=== PATIENT | female | born 1980 | race Caucasian/White ===

== ENCOUNTER 2018-02-11 22:20 | Emergency (ER) | payer MEDICAID, SELFPAY ==
[2018-02-11 22:21] VITALS: BP 136/96; PULSE 86; RESP 16; TEMP 36.2; O2SAT 99; BMI 54.6
--- NOTE | 2018-02-11 22:40 | ED.VISSUMM ---
- ER Visit Summary Date of Service: 02/11/18 Chief Complaint: [] Abdominal pain History of Present Illness: The patient is a 37 F with abdominal pain since 1 AM today. She woke up and felt some diffuse abdominal cramping after eating [employer]. She had 2 episodes of emesis almost 24 hours ago back to back the second having some blood streaks. It has not reoccurred. She had 2 episodes of loose diarrhea. She has never had a formal gastric ulcer or any previous GI problems. She uses Aleve and Pepto-Bismol with moderate relief and came in for further evaluation. Physical Examination: Vital signs reviewed General: Well-nourished well-developed Head: Normocephalic atraumatic Eyes: Pupils equal round and reactive to light extraocular movements intact ENT: TMs clear no hemotympanum no trauma Neck: Nontender full range of motion Cardiovascular: Regular rate rhythm no murmurs normal S1-S2 Respiratory: No distress clear to auscultation bilaterally chest nontender Abdomen: Soft nontender nondistended normal bowel sounds no masses Back: Nontender no CVA tenderness Extremities: Nontender active range of motion ?4 extremities no trauma Skin: Normal color no trauma Neuro alert oriented cranial nerves II through XII intact normal strength sensation reflexes Test Results: [] Emergency Department Course and Treatment: The patient likely has a viral illness versus poisoning. She is nontoxic resting comfortably. She may have had a slight Angela-Pierce tear from a forceful vomiting episode last night that has not recurred. Do not feel she needs lab work or imaging. Given a dose of Bentyl and Zofran. She will follow-up with her doctor and eat a bland diet. Treatment Plan: [] Disposition: [] Impression: [] Vomiting Diarrhea Abdominal cramping This note was generated with [employer] dictation software. It may contain incorrect words, spelling, and punctuation that were not noted in review of the chart prior to signing ED Disposition - Plan for ED Patient: Chief Complaint: Abd Pain Referrals: Ko Holt MD [Primary Care Provider] -
--- NOTE | 2018-02-11 22:41 | ED.DEP ---
ED Disposition - Plan for ED Patient: Disposition: Home or Assisted Living Chief Complaint: Abd Pain Instructions: ED Food Poison Or Gastroenteritis Prescriptions: Ondansetron [Zofran Odt] 4 mg PO Q8H PRN PRN #10 tab PRN Reason: Nausea Dicyclomine HCl [Bentyl] 20 mg PO TIDAC #20 cap Referrals: Ko Holt MD [Primary Care Provider] -
[2018-02-11] MEDS: Dicyclomine 10 MG Capsule 20 MG PO (22:55)
[2018-02-11] MEDS: Ondansetron ODT 4 MG Tablet PO (22:55)
== END 2018-02-11 22:57 | disposition home or self-care (01) ==
PROVIDERS: Emergency Provider Emergency Medicine; Family Provider Family Medicine; PCP Family Medicine
DX: R10.84 Generalized abdominal pain (principal); R19.7 Diarrhea, unspecified; R11.2 Nausea with vomiting, unspecified
CPT/HCPCS: 99283

== ENCOUNTER 2018-04-12 01:48 | Emergency (ER) | payer MEDICAID, SELFPAY ==
[2018-04-12 01:48] VITALS: BP 117/84; PULSE 87; RESP 20; TEMP 36.7; O2SAT 99; BMI 55.1
--- NOTE | 2018-04-12 02:06 | RAD_ITS ---
STUDY: X-RAY CHEST REASON FOR EXAM: Female, 37 years old. wheezing, cough, dizzy, h/o COPD TECHNIQUE: Frontal and lateral views of the chest. COMPARISON: None. FINDINGS: There is an ill-defined opacity in the right and left lung adjacent to the anterior aspect of the left fifth rib may represent a bone lesion or a lung mass. Further evaluation by CT scan can be helpful. There is no demonstrated pleural abnormality. Normal size heart. Normal mediastinum and fatoumata. Normal visualized pulmonary arteries. Normal visualized aortic arch and descending thoracic aorta. Normal visualized thoracic spine. Normal visualized ribs, clavicles, and shoulders. There is no demonstrated abnormality of the visualized soft tissue structures of the upper abdomen. RAD/Chest PA and Lateral IMPRESSION: There is an ill-defined opacity in the right and left lung adjacent to the anterior aspect of the left fifth rib may represent a bone lesion or a lung mass. Further evaluation by CT scan can be helpful. Electronically Signed: Mickey Benjamin MD at 3:55 EDT Tel , Service support ,
[2018-04-12 02:19] LABS: Absolute Neutrophil Count 6.1 X10^3/uL (2.0-7.7); Basophil# 0.05 X10^3/uL; Basophil% 0.6 % (0-1); Eosinophil# 0.21 X10^3/uL; Eosinophils% 2.4 % (0-5); Hematocrit 40.3 % (37-47); Hemoglobin 12.1 g/dl (12.0-15.0); Lymphocyte % 20.7 % (19-41); Mean Corpuscular Hgb 28.2 pg (27.0-32.0); Mean Corpuscular Volume 93.9 fL (81-99); Mean Platelet Vol. 10.6 fl (6.2-12.0); Monocyte# 0.54 X10^3/uL; Monocyte% 6.2 % (0-10); Platelet Count 189 K/mm3 (150-450); RBC Distribution Width SD 50.2 fl (35.1-43.9); Red Blood Count 4.29 M/mm3 (4.2-5.4); White Blood Count 8.7 K/mm3 (4.4-11.0)
[2018-04-12 02:20] LABS: POSITIVE COUNT NO; POSITIVE DIFFERENTIAL NO; POSITIVE MORPHOLOGY NO
[2018-04-12] MEDS: Albuterol 2.5 MG/3 ML VIAL.NEB. INHALATION ×3 (02:25)
[2018-04-12] MEDS: Ipratropium/Albuterol Sulfate 3 ML AMPUL.NEB INHALATION (02:25)
[2018-04-12 02:26] VITALS: PULSE 84; RESP 20
[2018-04-12 02:31] LABS: Anion Gap 2 (5-15); BUN 8 mg/dL (7-18); BUN/Creat Ratio 15.2 RATIO (10-20); Calcium,Total 8.5 mg/dL (8.5-10.1); Chloride 99 mmol/L (98-107); Creatinine, Serum 0.52 mg/dL (0.55-1.02); EST Glomerular Filtration Rate 140 mL/min (>60); Est Glom Filt Rate - Afr Amer 170 mL/min (>60); Estimated Creatinine Clearance 113.95 ml/min; Glucose 83 mg/dL (74-106); Sodium Level 139 mmol/L (136-145)
[2018-04-12 03:41] LABS: Allen Test POS; Base Excess 14 mmol/L (-2 to +2); Bicarbonate 38.4 mmol/L (22-26); Blood Gas Specimen Type ART; O2 Delivery Device Nasal Can; PO2 102 mmHG (75-100); SITE L Radial; SO2 98 % (95-99); Time Given 330; Total Carbon Dioxide 40 mmol/L; pCO2 55.1 mmHg (35-45); pH 7.45 (7.35-7.45)
--- NOTE | 2018-04-12 03:59 | ED.DCSUM_ITS ---
- ER Visit Summary Date of Service: 04/12/18 Chief Complaint: Dizziness, shortness of breath and abdominal pain with nausea, vomiting diarrhea. History of Present Illness: The patient is a 37 F who called squad for transport to the emergency room because of lightheadedness and shortness of breath. The dizziness started a couple of hours prior to presentation. Her meaning of dizziness is lightheadedness when she stands. There is no vertiginous symptoms. There is no nausea vomiting. There is no change in vision and specifically no blurred or double vision. She denies headache. Denies neck pain. She denies paresthesia, anesthesia motor weakness. She does complain of a nonproductive cough as well as shortness of breath and dyspnea on exertion. She does report mild nasal congestion. She denies hematemesis, melena hematochezia. Nausea vomiting has been present for 2-3 days. She denies dysuria, frequency, urgency or hematuria. She does complain of generalized weakness. Physical Examination: Blood work is unremarkable. She is not hypoxic on oxygen by nasal cannula. She is chronically on 2 L. BMI is 55.2. Head is atraumatic normocephalic. Pupils are equal round reactive. Extraocular muscles are intact. TMs are pearly white with landmarks noted. Nares patent with no drainage. Posterior pharynx without erythema or exudate. Uvula is midline. There is no dysphonia or dysphasia. Trachea is midline. There is no stridor with auscultation of the neck. She does have cushingoid facial appearance with buffalo hump. Lungs reveal increased x-ray phase with diminished breath sounds and wheezing heard bilaterally. Heart is regular without murmur, gallop or rub. Abdomen soft nontender. Lower extremity exam reveals non-pitting edema with varicosities. There is no tenderness, pain along the distribution of deep venous system, leg vein distention, discoloration, asymmetry or palpable cords. She is alert oriented ?3. Gait was not observed or tested. Motor and sensory are intact. Test Results: Chest x-ray reveals chronic changes with a difference in the penetration. Today's film is underpenetrated compared to prior. White count is normal. BMP is remarkable for an elevated CO2, which is a new finding. Blood gas was obtained and reveals chronic CO2 retention with a pH 7.45, CO2 of 55, PaO2 of 102 with a bicarb of 38.4 and saturation 98% which correlates with pulse ox. Emergency Department Course and Treatment: To evaluate patient's symptoms CBC was obtained to evaluate for anemia, BMP to assess elevated BUN to creatinine ratio and chest x-ray because of the cough and wheezing with history of COPD. She was treated with DuoNeb and albuterol. She also received 60 mg of prednisone. She has had no vomiting or diarrhea during her ER course. Treatment Plan: Prescription for 40 mg of prednisone ?5 days. Follow-up with in 3-5 days. Disposition: Discharged home in stable improved condition. She was reassessed at 0350 and is now wheeze free. Impression: 1. Acute exacerbation of COPD with bronchospasm 2. Respiratory failure with chronic hypercapnia and hypoxia 3. Abdominal pain with reported vomiting diarrhea 4. History of GERD 5. History of IBS This note was generated with [employer] dictation software. It may contain incorrect words, spelling, and punctuation that were not noted in review of the chart prior to signing ED Disposition - Plan for ED Patient: Disposition: Home or Assisted Living Chief Complaint: Dizziness Instructions: ED COPD Flare Prescriptions: Prednisone [Deltasone] 40 mg PO DAILY #10 tab Referrals: Ko Holt MD [Primary Care Provider] - 3-5 Days
[2018-04-12] MEDS: Acetaminophen 325 MG Tablet 650 MG PO (04:09)
[2018-04-12] MEDS: predniSONE 20 MG Tablet 60 MG PO (04:09)
[2018-04-12 04:11] VITALS: PULSE 91; RESP 18; O2SAT 95
== END 2018-04-12 04:13 | disposition home or self-care (01) ==
PROVIDERS: Emergency Provider Emergency Medicine; Family Provider Family Medicine; PCP Family Medicine
DX: J44.1 Chronic obstructive pulmonary disease with (acute) exacerbation (principal); J98.01 Acute bronchospasm; J96.12 Chronic respiratory failure with hypercapnia; J96.11 Chronic respiratory failure with hypoxia; R10.9 Unspecified abdominal pain; R11.2 Nausea with vomiting, unspecified; K58.0 Irritable bowel syndrome with diarrhea; K21.9 Gastro-esophageal reflux disease without esophagitis; E66.9 Obesity, unspecified; Z99.81 Dependence on supplemental oxygen; Z68.43 Body mass index [BMI] 50.0-59.9, adult; Z87.891 Personal history of nicotine dependence; Z79.51 Long term (current) use of inhaled steroids; Z79.899 Other long term (current) drug therapy
CPT/HCPCS: 36600; 71046; 80048; 82803; 85025; 94640; 99285; A4216

== ENCOUNTER 2018-06-22 23:45 | Emergency (ER) | payer MEDICAID, SELFPAY ==
[2018-06-22 23:45] VITALS: BP 118/81; PULSE 73; RESP 18; TEMP 36.7; O2SAT 95; BMI 55.1
[2018-06-23] MEDS: Ketorolac 30 MG/ML Syringe IV (00:17)
[2018-06-23] MEDS: 0.9% Normal Saline 1,000 ML 1000 ML IV (00:17)
[2018-06-23] MEDS: proMETHazine 25 MG/ML Syringe 6.25 MG IV (00:17)
[2018-06-23 00:35] LABS: Absolute Neutrophil Count 7.3 X10^3/uL (2.0-7.7); Basophil# 0.05 X10^3/uL; Basophil% 0.5 % (0-1); Eosinophil# 0.13 X10^3/uL; Eosinophils% 1.3 % (0-5); Hematocrit 42.8 % (37-47); Hemoglobin 12.9 g/dl (12.0-15.0); Lymphocyte % 17.3 % (19-41); Mean Corp Hgb Conc 30.1 g/gl (32-36); Mean Corpuscular Hgb 28.3 pg (27.0-32.0); Mean Corpuscular Volume 93.9 fL (81-99); Mean Platelet Vol. 11.5 fl (6.2-12.0); Monocyte# 0.58 X10^3/uL; Monocyte% 5.9 % (0-10); Neutrophil # 7.34 X10^3/uL (2.7-7.7); Neutrophil % 74.8 % (47-70); Platelet Count 228 K/mm3 (150-450); RBC Distribution Width CV 14.9 % (11.6-14.6); RBC Distribution Width SD 49.8 fl (35.1-43.9); Red Blood Count 4.56 M/mm3 (4.2-5.4); White Blood Count 9.8 K/mm3 (4.4-11.0)
[2018-06-23 00:37] LABS: POSITIVE COUNT NO; POSITIVE DIFFERENTIAL NO; POSITIVE MORPHOLOGY NO
[2018-06-23 00:45] LABS: AST(SGOT) 19 U/L (15-37); Alanine Aminotransfer ALT/SGPT 19 U/L (13-56); Albumin, Serum 3.1 g/dL (3.2-5.0); Alkaline Phosphatase 60 U/L (45-117); Anion Gap 2 (5-15); BUN 16 mg/dL (7-18); Bilirubin, Direct 0.15 mg/dL (0.00-0.30); Calcium,Total 8.5 mg/dL (8.5-10.1); Chloride 102 mmol/L (98-107); Creatinine, Serum 0.59 mg/dL (0.55-1.02); EST Glomerular Filtration Rate 122 mL/min (>60); Est Glom Filt Rate - Afr Amer 148 mL/min (>60); Estimated Creatinine Clearance 99.47 ml/min; Globulin 4.4 g/dL (2.2-4.2); Glucose 114 mg/dL (74-106); Lipase 98 U/L (73-393); Potassium 4.2 mmol/L (3.5-5.1); Protein, Total 7.5 g/dL (6.4-8.2); Sodium Level 139 mmol/L (136-145)
--- NOTE | 2018-06-23 00:57 | ED.DCSUM_ITS ---
- ER Visit Summary Date of Service: 06/23/18 Chief Complaint: Vomiting/diarrhea History of Present Illness: The patient is a [address] Holt. She reports approximately 9:00 this evening she began having vomiting and diarrhea. She is on 2-3 times. No blood or emesis. She states that she did this despite Bentyl and Zofran. She also had 5 episodes of diarrhea. No blood in her stools or black tarry stools. She reports that she has cramping upper abdominal pain that is 10 out of 10 severity. Is worsened by movement relieved by remaining still. She denies any dysuria or frequency. Patient reports this began approximate 1 hour after eating high barbecue wings, pizza with mushrooms/sausage/green peppers. Patient denies sick contacts. Has not been camping out of the country. Does not drink well water. No recent antibiotic use. She denies any history of fatty food intolerance. She reports she has had the similar symptoms previously with food poisoning. Physical Examination: Vitals: Stable. Afebrile. General: Well-nourished and well-developed. Head: Normocephalic atraumatic. Neck: Supple, no lymphadenopathy. No JVD. Nontender. Cardiovascular: Regular rate and rhythm. No murmurs. Respiratory: No respiratory distress. Clear to auscultation bilaterally. Abdominal: Soft, mild diffuse upper tenderness to palpation, nondistended, normal bowel sounds. No guarding, rebound, or peritoneal signs. Back: Nontender. Extremities: Nontender, no edema. Skin: Normal color, no rash. Neurologic: Alert and oriented ?3. Cranial nerves II through XII are intact. Normal strength and sensation. Psych: Normal affect. Test Results: CBC is marked for 7 neutrophils 75 lymphs at 17. Chem-7 is more for CO2 of 35 and glucose 114. LFTs marked for now a 3.1 globulin 4.4. Lipase negative. test negative. Emergency Department Course and Treatment: Patient is given dose of Toradol and Phenergan IV. She has had no vomiting or diarrhea while here. Treatment Plan: Patient will be discharged with Phenergan. Instructed follow- up her primary care physician 1-2 days not improving. Return to the emergency department for any worsening symptoms. Disposition: To home in improved and stable condition. Impression: 1. Vomiting/diarrhea. This note was generated with [employer] dictation software. It may contain incorrect words, spelling, and punctuation that were not noted in review of the chart prior to signing ED Disposition - Plan for ED Patient: Chief Complaint: Nausea/Vomiting/Diarrhea Instructions: ED Food Poison Or Gastroenteritis Prescriptions: proMETHazine suppository [Phenergan Suppository] 25 mg RECTAL Q6H PRN PRN #6 suppos. PRN Reason: Nausea proMETHazine tablet [Phenergan] 25 mg PO Q6H PRN PRN #10 tablet PRN Reason: Nausea Referrals: Ko Holt MD [Primary Care Provider] - 1-2 Days if not improving
[2018-06-23 01:14] LABS: Pregnancy, Serum, hCG Quali. NEGATIVE Negative (0-9 Nonpreg)
[2018-06-23] MEDS: proMETHazine 25 MG Tablet PO (01:49)
[2018-06-23 01:50] VITALS: BP 129/89; PULSE 73; RESP 16; O2SAT 92
== END 2018-06-23 01:51 | disposition home or self-care (01) ==
LOC: ED 06-23 00:05
PROVIDERS: Emergency Provider Emergency Medicine; Family Provider Family Medicine; PCP Family Medicine
DX: R11.2 Nausea with vomiting, unspecified (principal); R19.7 Diarrhea, unspecified; J44.9 Chronic obstructive pulmonary disease, unspecified; Z72.0 Tobacco use; Z79.51 Long term (current) use of inhaled steroids; Z79.899 Other long term (current) drug therapy
CPT/HCPCS: 80048; 80076; 83690; 84703; 85025; 96361; 96374; 96375; 99283; J7030

== ENCOUNTER 2018-09-14 08:30 | Emergency (ER) | payer MEDICAID, SELFPAY ==
[2018-09-14 08:32] VITALS: BP 152/73; PULSE 73; RESP 18; TEMP 36.1; O2SAT 97; BMI 54.2
--- NOTE | 2018-09-14 08:45 | ED.VISSUMM ---
- ER Visit Summary Date of Service: 09/14/18 Chief Complaint: Nausea and vomiting History of Present Illness: The patient is a 38 F presents after 1 hour of nausea and vomiting. She has some epigastric pain, she has a history of reflux disease. She has no right upper quadrant pain. She has no fever or chills no back pain no radiation to her back. Pain in her stump is mild. She says she just does not feel good. 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 Physical Examination: Not appear in acute distress. Moist mucous membranes, no obvious facial deformity No C-spine tenderness supple neck. Regular rate and rhythm without any obvious murmurs Clear lungs bilaterally speaking in full sentences without any obvious respiratory distress Abdomen soft with epigastric tenderness no guarding or rebound. Moves all extremities without any difficulty or pain. Skin does not show any obvious rashes or lesions, no trauma. Alert oriented ?3 with no gross focal deficit Emergency Department Course and Treatment: Patient was given IV fluids and antiemetics. Her workup is negative. She has no further nausea or vomiting should be discharged in stable condition Disposition: Discharge stable condition Impression: Nausea and vomiting improved This note was generated with [employer] dictation software. It may contain incorrect words, spelling, and punctuation that were not noted in review of the chart prior to signing ED Disposition - Plan for ED Patient: Disposition: Home or Assisted Living Chief Complaint: Nausea/Vomiting Instructions: ED Nausea Vomiting Prescriptions: Ondansetron [Zofran Odt] 4 mg PO 4X/DAY PRN #20 tab.rapdis PRN Reason: Nausea Referrals: Ko Holt MD [Primary Care Provider] - 2 Days
[2018-09-14] MEDS: Mag Hydrox/Al Hydrox/Simeth 30 ML UDC PO (08:56)
[2018-09-14] MEDS: 0.9% Normal Saline 1,000 ML 1000 ML IV (08:56)
[2018-09-14] MEDS: Ondansetron 4 MG/2 ML Vial IV (08:56)
[2018-09-14 09:07] LABS: Absolute Lymphocyte Count 2.19 X10^3/ul (0.83-4.51); Absolute Neutrophil Count 5.5 X10^3/uL (2.0-7.7); Basophil# 0.05 X10^3/uL; Basophil% 0.6 % (0-1); Eosinophil# 0.11 X10^3/uL; Eosinophils% 1.3 % (0-5); Hematocrit 43.1 % (37-47); Hemoglobin 13.6 g/dl (12.0-15.0); Lymphocyte # 2.19 X10^3/ul (4.0); Lymphocyte % 25.9 % (19-41); Mean Corp Hgb Conc 31.6 g/gl (32-36); Mean Corpuscular Hgb 28.4 pg (27.0-32.0); Mean Platelet Vol. 11.6 fl (6.2-12.0); Monocyte# 0.58 X10^3/uL; Monocyte% 6.9 % (0-10); Neutrophil # 5.48 X10^3/uL (2.7-7.7); Neutrophil % 64.8 % (47-70); POSITIVE COUNT NO; POSITIVE DIFFERENTIAL NO; POSITIVE MORPHOLOGY NO; Platelet Count 213 K/mm3 (150-450); RBC Distribution Width CV 14.9 % (11.6-14.6); RBC Distribution Width SD 48.1 fl (35.1-43.9); Red Blood Count 4.79 M/mm3 (4.2-5.4); White Blood Count 8.5 K/mm3 (4.4-11.0)
[2018-09-14 09:21] LABS: ALB/GLOB Ratio 0.7 RATIO (0.9-2.4); AST(SGOT) 17 U/L (15-37); Alanine Aminotransfer ALT/SGPT 20 U/L (13-56); Albumin, Serum 2.9 g/dL (3.2-5.0); Alkaline Phosphatase 59 U/L (45-117); Anion Gap 5 (5-15); BUN 14 mg/dL (7-18); BUN/Creat Ratio 20.8 RATIO (10-20); Calcium,Total 8.6 mg/dL (8.5-10.1); Chloride 103 mmol/L (98-107); Creatinine, Serum 0.67 mg/dL (0.55-1.02); EST Glomerular Filtration Rate 105 mL/min (>60); Est Glom Filt Rate - Afr Amer 127 mL/min (>60); Estimated Creatinine Clearance 87.59 ml/min; Glucose 85 mg/dL (74-106); Potassium 3.7 mmol/L (3.5-5.1); Protein, Total 6.9 g/dL (6.4-8.2); Sodium Level 139 mmol/L (136-145)
[2018-09-14 09:55] VITALS: BP 113/60; PULSE 67; RESP 15; O2SAT 98
== END 2018-09-14 09:57 | disposition home or self-care (01) ==
PROVIDERS: Emergency Provider Emergency Medicine; Family Provider Family Medicine; PCP Family Medicine
DX: R11.2 Nausea with vomiting, unspecified (principal); K21.9 Gastro-esophageal reflux disease without esophagitis; F41.9 Anxiety disorder, unspecified; F32.9 Major depressive disorder, single episode, unspecified; Z72.0 Tobacco use; Z79.51 Long term (current) use of inhaled steroids; Z79.899 Other long term (current) drug therapy
CPT/HCPCS: 80053; 85025; 96361; 96374; 99284; J7030; J2405

== ENCOUNTER 2018-09-23 13:49 | Emergency (ER) | payer MEDICAID, SELFPAY ==
[2018-09-23 13:51] VITALS: BP 122/71; PULSE 66; RESP 16; TEMP 36.2; O2SAT 97; BMI 53.0
--- NOTE | 2018-09-23 13:53 | RAD_ITS ---
STUDY: X-RAY - LEFT KNEE REASON FOR EXAM: Female, 38 years old. Pain following a fall. TECHNIQUE: AP and lateral view(s) of the knee. COMPARISON: None. FINDINGS: There is a deformity of the distal femur with widening of the diaphysis and metaphysis. 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 There is deformity of the proximal portion of the tibia worse on the medial side with decreased density and exostosis. This is suggestive of osteochondromatosis. There is also evidence of deformity of the proximal fibula. Normal proximal tibiofibular articulation. Normal medial femorotibial compartment. Normal lateral femorotibial compartment. Normal patellofemoral articulation. The soft tissue structures are unremarkable. 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 No acute abnormality is seen. Electronically Signed: Pa Laboy MD at 14:50 EST Tel [phone], Service support ,
--- NOTE | 2018-09-23 15:39 | ED.VISSUMM ---
- ER Visit Summary Date of Service: 09/23/18 Chief Complaint: Knee pain History of Present Illness: The patient is a 38 F with left knee pain after mechanical fall on her patella. She sustained no other injury. She is able to ambulate but has patellar pain. Physical Examination: Otherwise unremarkable exam she has tenderness over the anterior patella. Her extensor mechanism is intact. She has no laxity on anterior posterior medial lateral stressors. Emergency Department Course and Treatment: Negative I will discharge her with Naprosyn Disposition: Discharge stable condition Impression: Left knee contusion This note was generated with [employer] dictation software. It may contain incorrect words, spelling, and punctuation that were not noted in review of the chart prior to signing ED Disposition - Plan for ED Patient: Disposition: Home or Assisted Living Chief Complaint: Lower Extremity Injury Instructions: ED Contusion Lower Ext Prescriptions: Naproxen [Naprosyn] 500 mg PO BID PRN #20 tab Referrals: Ko Holt MD [Primary Care Provider] - 3-5 Days
--- NOTE | 2018-09-23 15:43 | ED.DCSUM_ITS ---
- ER Visit Summary Date of Service: 09/23/18 Chief Complaint: Knee pain History of Present Illness: The patient is a 38 F with left knee pain after mechanical fall on her patella. She sustained no other injury. She is able to ambulate but has patellar pain. Physical Examination: Otherwise unremarkable exam she has tenderness over the anterior patella. Her extensor mechanism is intact. She has no laxity on anterior posterior medial lateral stressors. Emergency Department Course and Treatment: Negative I will discharge her with Naprosyn Disposition: Discharge stable condition Impression: Left knee contusion This note was generated with [employer] dictation software. It may contain incorrect words, spelling, and punctuation that were not noted in review of the chart prior to signing ED Disposition - Plan for ED Patient: Disposition: Home or Assisted Living Chief Complaint: Lower Extremity Injury Instructions: ED Contusion Lower Ext Prescriptions: Naproxen [Naprosyn] 500 mg PO BID PRN #20 tab Referrals: Ko Holt MD [Primary Care Provider] - 3-5 Days
[2018-09-23] MEDS: Naproxen 500 MG Tablet PO (15:58)
[2018-09-23 16:04] VITALS: PULSE 71; RESP 18; O2SAT 99
== END 2018-09-23 16:05 | disposition home or self-care (01) ==
PROVIDERS: Emergency Provider Emergency Medicine; Family Provider Family Medicine; PCP Family Medicine
DX: S80.02XA Contusion of left knee, initial encounter (principal); M79.7 Fibromyalgia; Z72.0 Tobacco use; Z79.51 Long term (current) use of inhaled steroids; Z79.899 Other long term (current) drug therapy; W18.30XA Fall on same level, unspecified, initial encounter; Y93.89 Activity, other specified; Y92.89 Other specified places as the place of occurrence of the external cause; Y99.8 Other external cause status
CPT/HCPCS: 73560; 99283

== ENCOUNTER 2018-09-27 17:19 | Emergency (ER) | payer MEDICAID, SELFPAY ==
[2018-09-27 17:21] VITALS: BP 122/67; PULSE 68; RESP 14; TEMP 36.2; O2SAT 97; BMI 55.7
--- NOTE | 2018-09-27 17:32 | CT_ITS ---
STUDY: CT ABDOMEN AND PELVIS WITHOUT CONTRAST REASON FOR EXAM: Female, 38 years old. Abdominal pain. RADIATION DOSAGE (If Supplied By Facility): CTDIvol = ( 24.18 ) mGy, DLP = ( 1159.72 ) mGycm TECHNIQUE: Transaxial images were obtained from the dome of the diaphragm to the symphysis pubis without oral contrast, and without intravenous contrast. Sagittal and coronal images were reconstructed. Individualized dose optimization techniques were used for this CT. COMPARISON: None. FINDINGS: The visualized lung bases are unremarkable. The visualized portions of the heart are within normal limits. Normal liver. Normal gallbladder and extrahepatic biliary system. Normal spleen. Normal pancreas. Normal bilateral adrenal glands. Normal right kidney. Normal left kidney. The aorta is normal in caliber. There is a small bowel obstruction due to a small anterior pelvic wall hernia. Transition is identified at this level with mild small bowel dilation proximally. The appendix is normal. There is no free fluid, free air, or organized collection. Normal urinary bladder. The left ovary is enlarged, measuring approximately 7.2 x 4.1 cm. There is a 4.2 x 3.2 cm fat-containing lesion. A small calcification is noted in the inferolateral margin. 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 There is a small, fat-containing umbilical hernia. Osteoma or prominent osseous growth arising from the left lateral eighth rib. Bony structures are otherwise unremarkable. CT/Abdomen/Pelvis without Cont IMPRESSION: 1. Small bowel obstruction due to pelvic wall hernia containing a loop of small bowel. 2. Left ovarian dermoid tumor. 3. Small fat-containing umbilical hernia. Electronically Signed: Kiarra Villanueva MD at 19:35 EST Tel , Service support ,
--- NOTE | 2018-09-27 17:35 | RAD_ITS ---
STUDY: X-RAY CHEST REASON FOR EXAM: Female, 38 years old. Cough x2 weeks TECHNIQUE: PA and lateral views of the chest. COMPARISON: Previous study of 04/12/2018 FINDINGS: There is again demonstrated a wispy calcific density overlying the left midlung field which may represent calcified lung or rib lesion. There is pleural calcification of the left lower hemithorax. Normal size heart. Normal mediastinum and fatoumata. Normal visualized pulmonary arteries. Normal visualized aortic arch and descending thoracic aorta. Normal visualized thoracic spine. The clavicles and shoulders appear normal. There is no demonstrated abnormality of the visualized soft tissue structures of the upper abdomen. RAD/Chest PA and Lateral IMPRESSION: There is a wispy calcific density overlying the left midlung field which may represent calcified lung or rib lesion. This measures approximately 3.8 cm in diameter. It is stable in the interval. There is left basilar pleural calcification. No acute cardiopulmonary disease process is seen. Chest findings are stable in the interval. Electronically Signed: Sg Brady MD at 19:27 EST , Service support ,
[2018-09-27] MEDS: Ketorolac 30 MG/ML Syringe 15 MG IV (18:08)
[2018-09-27 18:14] LABS: Bacteria 0 SEEN /hpf (None Seen); Mucous, Urine 0 SEEN /hpf (<or=2+); Red Blood Cells-Urine 0 SEEN /hpf (0-5); White Blood Cells 0 SEEN /hpf (0-5)
[2018-09-27 18:15] LABS: Glucose, Dipstick Normal (Normal); Ketone-Dipstick Negative (Negative); Leukocyte Esterase-Dipstick Negative /ul (Negative); Nitrite-Dipstick Negative (Negative); Occult Blood-Urine 25 /ul (Negative); Protein-Dipstick Negative (Negative); Urine Bilirubin Dipstick Negative (Negative); Urine Urobilinogen 1 mg/dl (Normal)
[2018-09-27 18:19] LABS: Color, Urine Yellow (Yellow); Internal QC Validated? YES +Cl - CLEAR BKGD; Pregnancy, Urine Negative Negative; Urine Clarity Sl Cloudy (Clear)
[2018-09-27 18:19] LABS: Absolute Lymphocyte Count 3.19 X10^3/ul (0.83-4.51); Absolute Neutrophil Count 6.9 X10^3/uL (2.0-7.7); Basophil# 0.09 X10^3/uL; Basophil% 0.8 % (0-1); Eosinophils% 1.8 % (0-5); Hematocrit 44.9 % (37-47); Hemoglobin 13.6 g/dl (12.0-15.0); Lymphocyte # 3.19 X10^3/ul (4.0); Lymphocyte % 29.1 % (19-41); Mean Corp Hgb Conc 30.3 g/gl (32-36); Mean Corpuscular Hgb 27.8 pg (27.0-32.0); Mean Corpuscular Volume 91.6 fL (81-99); Mean Platelet Vol. 11.5 fl (6.2-12.0); Monocyte# 0.59 X10^3/uL; Monocyte% 5.4 % (0-10); Neutrophil # 6.87 X10^3/uL (2.7-7.7); Neutrophil % 62.6 % (47-70); POSITIVE COUNT NO; POSITIVE DIFFERENTIAL NO; POSITIVE MORPHOLOGY NO; Platelet Count 276 K/mm3 (150-450); RBC Distribution Width CV 14.5 % (11.6-14.6); RBC Distribution Width SD 47.6 fl (35.1-43.9)
[2018-09-27 18:23] LABS: Squamous Epithelial Cells - UA 0-5 SEEN /hpf (5-10)
[2018-09-27 18:36] LABS: Anion Gap 3 (5-15); BUN 9 mg/dL (7-18); BUN/Creat Ratio 13.5 RATIO (10-20); Calcium,Total 8.8 mg/dL (8.5-10.1); Chloride 100 mmol/L (98-107); Creatinine, Serum 0.67 mg/dL (0.55-1.02); EST Glomerular Filtration Rate 106 mL/min (>60); Est Glom Filt Rate - Afr Amer 129 mL/min (>60); Estimated Creatinine Clearance 87.59 ml/min; Glucose 86 mg/dL (74-106); Potassium 3.6 mmol/L (3.5-5.1); Sodium Level 137 mmol/L (136-145)
[2018-09-27 19:20] VITALS: RESP 14
--- NOTE | 2018-09-27 19:53 | RAD_ITS ---
STUDY: X-RAY - ABDOMEN/PELVIS REASON FOR EXAM: Female, 38 years old. Status post hernia reduction TECHNIQUE: Two AP supine views of the abdomen and pelvis. COMPARISON: None. FINDINGS: Normal visualized lung bases. There are several mildly distended air-filled loops of small bowel in the left mid to lower abdomen. There is no demonstrated free abdominal air. The visualized liver, spleen and kidneys are grossly normal in size and morphology. Normal soft tissue structures. Normal visualized osseous structures. RAD/Abdomen Single View (Portable) IMPRESSION: Several mildly distended air-filled loops of small bowel in the left mid to lower abdomen. If clinically indicated, follow-up CT of the pelvis may be helpful for further evaluation. Electronically Signed: Sg Brady MD at 22:17 EST , Service support ,
[2018-09-27 20:16] VITALS: BP 105/90; PULSE 63; RESP 15; O2SAT 94
[2018-09-27] MEDS: Morphine 4 MG/ML Syringe IV (20:17)
[2018-09-27] MEDS: Dicyclomine 10 MG Capsule 20 MG PO (20:17)
--- NOTE | 2018-09-27 21:18 | ED.DCSUM_ITS ---
- ER Visit Summary Date of Service: 09/27/18 Chief Complaint: Abdominal pain. History of Present Illness: The patient is a 38 F presenting for evaluation secondary to abdominal pain. Patient reports that over the course of the last 2 weeks she has been dealing with abdominal pain. She reports that over the course of the last week there is been getting progressively worse. Typically is located on the left side of her abdomen but will be diffuse and crampy on occasion. It is worse with coughing. It has been associated with bouts of nausea and vomiting about 2 weeks ago that seemed to have resolved. Patient reports that she is not having any sort of diarrhea constipation or fevers. Patient saw her primary care physician about a week ago and was increased on her omeprazole and her gas pill as they thought that this was the issue. She denies any urinary or vaginal complaints. Physical Examination: Vital signs are within normal limits, patient is afebrile. General: Patient is well-nourished well-developed and in no acute distress. Head: Normocephalic, atraumatic Eyes: Pupils equal round and reactive bilaterally, extra occular motion intact bialterally ENT: Moist mucous membranes Neck: Supple, no lymphadenopathy, no JVD, no meningismus CVS: Heart regular rate and rhythm, no murmurs, rubs or gallops, radial pulses 2+ bilaterally Resp: Respirations nondistressed, some wheezes and rales bilaterally with no respiratory distress Abdomen: Soft, tender in the left lower and left upper quadrants without guarding or rebound tenderness, nondistended, no palpable masses, normal bowel sounds Back: Nontender Extremities: Nontender, atraumatic, active full range of motion, no peripheral edema Skin: warm, no rashes, no petechia Neuro: Alert and oriented x 4, CN 2-12 intact, no lateralizing neurological defecits Psyc: Normal affect Test Results: CT abdomen and pelvis shows a potential low-grade bowel obstruction with an incarcerated pelvic wall hernia, CBC chemistry urinalysis unremarkable Emergency Department Course and Treatment: Patient presented with persistent abdominal pain. She did have reproducible pain on exam so the lab work and imaging were obtained. Workup as noted above showed a hernia in the patient's pelvis. Patient has no evidence of acidosis or elevated anion gap, and I reviewed the images and it does not seem like there is a significant inflammatory changes around this. I went back and did a repeat evaluation of the patient. Pushing just above the patient's pubic symphysis on deep palpation I was able to palpate the hernia, and I was able to directly reduce this. P segun had improvement of her pain. An abdominal x-ray was obtained which shows no evidence of bowel obstruction. Patient will be discharged with outpatient follow-up with general surgery. Disposition: Discharge Impression: 1. Pelvic wall hernia 2. Manual hernia reduction by ED physician This note was generated with [employer] dictation software. It may contain incorrect words, spelling, and punctuation that were not noted in review of the chart prior to signing ED Disposition - Plan for ED Patient: Disposition: Home or Assisted Living Chief Complaint: Abd Pain Diagnosis: Hernia Instructions: What Is a Hernia? Prescriptions: Docusate Sodium [Colace] 100 mg PO DAILY #30 cap Referrals: Corwin Chan MD [STAFF PHYSICIAN] - 1-2 Weeks
[2018-09-27 21:25] VITALS: RESP 14
== END 2018-09-27 21:26 | disposition home or self-care (01) ==
PROVIDERS: Emergency Provider Emergency Medicine; Family Provider Family Medicine; PCP Family Medicine
DX: K41.30 Unilateral femoral hernia, with obstruction, without gangrene, not specified as recurrent (principal); E66.9 Obesity, unspecified
CPT/HCPCS: 71046; 74018; 74176; 80048; 81001; 81025; 85025; 96374; 96375; 99282; A4216

== ENCOUNTER 2018-10-03 16:42 | Emergency (ER) | payer MEDICAID, SELFPAY ==
[2018-10-03 16:43] VITALS: BP 127/73; PULSE 80; RESP 18; TEMP 37.1; O2SAT 94; BMI 55.5
[2018-10-03] MEDS: Ondansetron 4 MG/2 ML Vial IV (17:56)
[2018-10-03] MEDS: 0.9% Normal Saline 1,000 ML 1000 ML IV (17:56)
[2018-10-03] MEDS: Morphine 4 MG/ML Syringe IV (17:56)
[2018-10-03 18:15] LABS: Absolute Lymphocyte Count 2.55 X10^3/ul (0.83-4.51); Absolute Neutrophil Count 6.9 X10^3/uL (2.0-7.7); Basophil# 0.04 X10^3/uL; Basophil% 0.4 % (0-1); Eosinophil# 0.17 X10^3/uL; Eosinophils% 1.7 % (0-5); Hematocrit 44.7 % (37-47); Hemoglobin 13.4 g/dl (12.0-15.0); Lymphocyte # 2.55 X10^3/ul (4.0); Lymphocyte % 24.8 % (19-41); Mean Corpuscular Hgb 27.8 pg (27.0-32.0); Mean Corpuscular Volume 92.7 fL (81-99); Mean Platelet Vol. 11.7 fl (6.2-12.0); Monocyte# 0.64 X10^3/uL; Monocyte% 6.2 % (0-10); Neutrophil # 6.87 X10^3/uL (2.7-7.7); Neutrophil % 66.8 % (47-70); Platelet Count 246 K/mm3 (150-450); RBC Distribution Width CV 14.6 % (11.6-14.6); RBC Distribution Width SD 49.2 fl (35.1-43.9); Red Blood Count 4.82 M/mm3 (4.2-5.4); White Blood Count 10.3 K/mm3 (4.4-11.0)
[2018-10-03 18:18] LABS: POSITIVE COUNT NO; POSITIVE DIFFERENTIAL NO; POSITIVE MORPHOLOGY NO
--- NOTE | 2018-10-03 18:18 | RAD_ITS ---
STUDY: X-RAY - ACUTE ABDOMINAL SERIES REASON FOR EXAM: Female, 38 years old. Abdominal pain TECHNIQUE: Single view of the chest. Supine, and erect view(s) of the abdomen were obtained. COMPARISON: Abdomen radiographs and CT abdomen and pelvis dated September 27, 2018; chest radiographs dated September 27, 2018 and April 12, 2018 FINDINGS: The lungs are adequately expanded. There are no focal airspace opacities. There is no demonstrated pleural abnormality. The cardiac silhouette is normal in size. No significant abnormalities are seen in the mediastinum and hilar regions. The pulmonary arteries are unremarkable. The thoracic aorta is unremarkable. The bowel gas pattern is unremarkable. There is no demonstrated abnormality of the major organs. There is stable deformity of a lower left rib along the anterior margin. There is a stable calcific density projected over the mid left lung, possibly rib related. RAD/Acute Abdomen Inc Chest IMPRESSION: No acute abnormalities are seen in the chest, abdomen or pelvis. Electronically Signed: Liliam Frazier MD at 19:18 EST Tel Direct: [phone], Service support ,
[2018-10-03 18:21] LABS: Anion Gap 2 (5-15); BUN 15 mg/dL (7-18); BUN/Creat Ratio 20.1 RATIO (10-20); Calcium,Total 8.3 mg/dL (8.5-10.1); Chloride 105 mmol/L (98-107); Creatinine, Serum 0.75 mg/dL (0.55-1.02); EST Glomerular Filtration Rate 93 mL/min (>60); Est Glom Filt Rate - Afr Amer 113 mL/min (>60); Estimated Creatinine Clearance 78.25 ml/min; Glucose 95 mg/dL (74-106); Potassium 4.2 mmol/L (3.5-5.1); Sodium Level 141 mmol/L (136-145)
[2018-10-03 19:03] VITALS: RESP 14
--- NOTE | 2018-10-03 19:57 | ED.DCSUM_ITS ---
- ER Visit Summary Date of Service: 10/03/18 Chief Complaint: Hernia History of Present Illness: The patient is a 38 F with upper and lower abdominal pain. Patient has a history of hernia and is planning to follow-up with Dr. Delaney later in the month. She was seen recently in this emergency department and required reduction of her hernia. She reports similar pain today, but denies any other symptoms like nausea, vomiting, or difficulty passing gas. No fevers or urinary symptoms. Physical Examination: Patient is afebrile and vital signs are unremarkable. She is nontoxic and in no acute distress. Heart regular rate and rhythm. Lungs clear. Abdomen soft and nontender. Normal bowel sounds. No palpable masses. Test Results: X-rays were unremarkable. No obstructive pattern. Labs unremarkable. Emergency Department Course and Treatment: Patient treated with fluids, morphine, and Zofran while awaiting results. On exam, I do not appreciate a hernia. Her exam is fairly unremarkable. Her x- rays do not show signs of obstruction or any other acute abnormality. Her labs are reassuring. Patient will be discharged to follow-up as an outpatient. Return for any new or worsening issues. Treatment Plan: As above Disposition: Discharged Impression: 1. Abdominal pain This note was generated with [employer] dictation software. It may contain incorrect words, spelling, and punctuation that were not noted in review of the chart prior to signing ED Disposition - Plan for ED Patient: Chief Complaint: Abd Pain Referrals: Ko Holt MD [Primary Care Provider] -
--- NOTE | 2018-10-03 19:57 | ED.DEP ---
ED Disposition - Plan for ED Patient: Chief Complaint: Abd Pain Instructions: ED Abdominal Pain Unkn Cause Referrals: Corwin Chan MD [STAFF PHYSICIAN] -
[2018-10-03 19:59] VITALS: BP 121/76; PULSE 83; RESP 12; O2SAT 99
== END 2018-10-03 20:14 | disposition home or self-care (01) ==
PROVIDERS: Emergency Provider Emergency Medicine; Family Provider Family Medicine; PCP Family Medicine
DX: R10.10 Upper abdominal pain, unspecified (principal); R10.30 Lower abdominal pain, unspecified; Z72.0 Tobacco use
CPT/HCPCS: 74022; 80048; 85025; 96361; 96374; 96375; 99283; J7030; J2405

== ENCOUNTER 2018-10-30 21:56 | Emergency (ER) | payer MEDICAID, SELFPAY ==
[2018-10-30 21:57] VITALS: BP 135/80; PULSE 73; RESP 16; TEMP 36.1; O2SAT 94; BMI 53.1
--- NOTE | 2018-10-30 22:16 | ED.DCSUM_ITS ---
- ER Visit Summary Date of Service: 10/30/18 Chief Complaint: [] Pain over her incision for 3 years History of Present Illness: The patient is a 38 F [] reports that history for 3 years she is scheduled to see Dr. Delaney tomorrow, she has been told that she may require revision of that incision or that there may be a hernia there she has been told that because of her weight any type of surgery would be complicated she went from weighing over 300 pounds to 280 pounds and now she is going to see Dr. Delaney tomorrow she indicates her children her have been bouncing on her abdomen slightly she had more intense pain today and she came in for evaluation, the pain that she has had is the same pain she has had for 3 years it is not different anyway she is eating and drinking well bowel and bladder habits are normal, She points directly over the midportion of the old incision is a focus area of her pain Physical Examination: [] 135/80 afebrile General, no distress resting comfortably HEENT is generally unremarkable The neck is supple no adenopathy Cardiovascular, regular rate and rhythm Lungs, clear bilateral Abdomen, soft nontender, she has some discomfort directly over the central portion of the incision, this area is very nodular and ropelike but there is no warmth no obvious defect no obvious hernia no redness no signs of infection, she can point to almost one fingertip area of discomfort Extremities, no clubbing cyanosis or edema Neurologic, awake alert answering questions appropriately moving all 4 extremities Test Results: [] Emergency Department Course and Treatment: [] Long conversation with the patient she assures me her bowel and bladder habits been normal this is a chronic ongoing condition it exacerbated tonight we discussed ED workup with labs x-rays etc. she declined that since she simply wanted something for the pain, she indicated she did take a Robaxin tablet her sister had and that helped relax her stomach in itself actually feeling better I explained to her that one we will give her Crescent here x1 dose, I will give her Robaxin 500 mg 2 tablets only to use as a rescue medicine tomorrow and have her follow-up with her appointments as scheduled and return for change in symptoms and she is comfortable with this plan Treatment Plan: [] Disposition: [] Home stable Impression: [] Acute recurrent pain related to incision This note was generated with Dragon dictation software. It may contain incorrect words, spelling, and punctuation that were not noted in review of the chart prior to signing ED Disposition - Plan for ED Patient: Chief Complaint: Abd Pain Referrals: Ko Holt MD [Primary Care Provider] -
--- NOTE | 2018-10-30 22:16 | ED.DEP ---
ED Disposition - Plan for ED Patient: Chief Complaint: Abd Pain Instructions: ED Abdominal Pain Unkn Cause Prescriptions: Methocarbamol [Robaxin] 500 mg PO BID #2 tab Referrals: Ko Holt MD [Primary Care Provider] - Additional Instructions: Keep all of your appointments including her appointment tomorrow
[2018-10-30] MEDS: HYDROcodone Bitartrate/Apap 5/325 Tablet PO (22:17)
[2018-10-30 22:59] VITALS: BP 132/82; PULSE 87; RESP 16; O2SAT 98
--- OUTSIDE RECORDS SUMMARY | 2018-12-16 15:48 | XMS RPT_ITS ---
:1980 Author Organization OHIP Support Name Relationship Address Phone EZEQUIEL, SARAH Unavailable [address] + [place] [address] HOLIDAY, TRUDI Unavailable [address] + [place] [address] UE Unavailable Unavailable Unavailable EZEQUIEL, SARAH Unavailable [address] + [place] [address] HOLIDAY, TRUDI Unavailable [address] + [place] [address] UE Unavailable Unavailable Unavailable EZEQUIEL, SARAH Unavailable [address] + [place] [address] HOLIDAY, TRUDI Unavailable [address] + [place] [address] UE Unavailable Unavailable Unavailable EZEQUIEL, SARAH Unavailable [address] + [place] [address] HOLIDAY, TRUDI Unavailable [address] + [place] [address] UE Unavailable Unavailable Unavailable EZEQUIEL, SARAH Unavailable [address] + [place] [address] HOLIDAY, TRUDI Unavailable [address] + [place] [address] UE Unavailable Unavailable Unavailable EZEQUIEL, SARAH Unavailable [address] + [place] [address] HOLIDAY, TRUDI Unavailable [address] + [place] [address] UE Unavailable Unavailable Unavailable EZEQUIEL, SARAH Unavailable [address] + [place] [address] HOLIDAY, TRUDI Unavailable [address] + [place] [address] UE Unavailable Unavailable Unavailable SARAH GODINEZ Unavailable [address] + [place] [address] TRUDI LONDONO Unavailable [address] + [place] [address] UE Unavailable Unavailable Unavailable Care Team Providers Name Role Phone Elderbrock, Juany Primary Care Unavailable Rodri Ramirez Attending Unavailable Elderbrock, Juany Primary Care Unavailable Burt Park Attending Unavailable Elderbrock, Juany Primary Care Unavailable Vinnie Mendoza Attending Unavailable Elderbrock, Juany Primary Care Unavailable Patrick Aragon Attending Unavailable Elderbrock, Juany Primary Care Unavailable CorniciPatrick Attending Unavailable Elderbrock, Juany Primary Care Unavailable Sissy Herrera Attending Unavailable Elderbrock, Juany Primary Care Unavailable Abdirashid Monsalve Attending Unavailable Elderbrock, Juany Primary Care Unavailable Dariel Coronel Attending Unavailable BIRD LOPEZ (BUFFER CHROME) Attending Unavailable SHO CHIN (BUFFER CHROME) Attending Unavailable SHO CHIN (BUFFER CHROME) Referring Unavailable KRISTINA RAMESH Admitting Unavailable SALVADOR WEAVER (RES) Attending Unavailable SALVADOR WEAVER (RES) Referring Unavailable SHO CHIN (BUFFER CHROME) Attending Unavailable PODMICHELLE SOOD (BUFFER CHROME) Attending Unavailable SHO CHIN (BUFFER CHROME) Referring Unavailable AGATA GARDINER Attending Unavailable JOSÉ MIGUEL AGATA Referring Unavailable JOSÉ MIGUEL AGATA Referring Unavailable LILIAM LOPEZ (PA) Attending Unavailable JOSÉ MIGUEL AGATA Referring Unavailable LILIAM LOPEZ (PA) Referring Unavailable LILIAM LOPEZ (PA) Referring Unavailable MARCELINO KURTZ Attending Unavailable SHO CHIN (BUFFER CHROME) Referring Unavailable NEGAR BRANCH Attending Unavailable ADARSH GUERRA) Referring Unavailable BIRD LOPEZ (BUFFER CHROME) Attending Unavailable KARTHIK CHAN Attending Unavailable BIRD LOPEZ (BUFFER CHROME) Attending Unavailable CECE OLIVARES (BUFFER CHROME) Attending Unavailable CHAYO GRAY Attending Unavailable LUIS ARMANDO DAWSON Admitting Unavailable LUIS ARMANDO DAWSON Attending Unavailable JORGE CAAL Attending Unavailable LUIS ARMANDO ORANTES Attending Unavailable JUANY HOLT Referring Unavailable IMCA Referring Unavailable ElderbrockJuany D Primary Care Unavailable Elderdaryl, Juany D Primary Care Unavailable Keith DAWSON Admitting Unavailable Keith DAWSON Attending Unavailable LUIS ARMANDO ORANTES Attending Unavailable Juany Holt Referring Unavailable Juany Holt Primary Care Unavailable CECELIA LOYOLA Attending Unavailable Juany Holt Primary Care Unavailable PROBLEMS PROBLEMS DATE TYPE CONDITION / CODE ATTENDING STATUS SOURCE 11/24/2018 Active Encounter for other NA Active [facility] specified [facility] Other aftercare / [place] Z48.89(ICD-10) Repository 11/20/2018 Active Other specified LEUKHARDT, Active [place] postprocedural [facility] Other states / [place] Z98.890(ICD-10) Repository 11/20/2018 Active Personal history of LEUKHARDT, Active [place] other diseases of [facility] Other the digestive [place] system / Repository Z87.19(ICD-10) 11/17/2018 Active Disruption of BUDZIAK, Active [place] wound, unspecified, [facility] Other initial encounter / [facility] T81.30XA(ICD-10) Repository 11/17/2018 Active Cellulitis of BUDZIAK, Active [facility] abdominal wall / [facility] Other L03.311(ICD-10) [facility] Repository 11/09/2018 Active Unspecified PAPOURAS, Active [place] intestinal [facility] Other obstruction, [place] unspecified as to Repository partial versus complete obstruction / K56.609(ICD-10) 11/09/2018 Active Incisional hernia PAPOURAS, Active [place] with obstruction, [facility] Other without gangrene / [place] K43.0(ICD-10) Repository 11/07/2018 Active Other and PAPOURAS, Active [place] unspecified ventral [facility] Other hernia with [place] obstruction, Repository without gangrene / K43.6(ICD-10) 11/09/2018 Admitting Unknown / Keith DAWSON Active [facility] diagnosis UNK(Unknown) [facility] Repository 10/31/2018 Active Lower abdominal CHAYO GRAY Active [place] pain, unspecified / [facility] Other R10.30(ICD-10) [place] Repository 07/11/2018 Active Other nonspecific NA Active [place] abnormal finding of Clinic Main lung field / [place] R91.8(ICD-10) Repository 07/11/2018 Active Dyspnea, NA Active [place] unspecified / [facility] R06.00(ICD-10) [place] Repository 07/11/2018 Active Other abnormalities NA Active [place] of breathing / [facility] Main R06.89(ICD-10) [place] Repository 06/20/2018 Active Chronic obstructive NA Active [place] pulmonary disease, Clinic Main unspecified / [place] J44.9(ICD-10) Repository 06/20/2018 Active Unknown / AGATA GARDINER Active [place] UNK(Unknown) Clinic Main [place] Repository 06/19/2018 Active Abnormal blood-gas NA Active [place] level / Clinic Main R79.81(ICD-10) [place] Repository 03/24/2018 Active Nicotine WEAVER, SALVADOR Active [place] dependence, (RES) Clinic Main unspecified, [place] uncomplicated / Repository F17.200(ICD-10) 03/24/2018 Active Fibromyalgia / WEAVER, SALVADOR Active [place] M79.7(ICD-10) (RES) Clinic Main [place] Repository 03/24/2018 Active Morbid (severe) WEAVER, SALVADOR Active [place] obesity due to (RES) Clinic Main excess calories / [place] E66.01(ICD-10) Repository 03/24/2018 Active Chronic obstructive WEAVER, SALVADOR Active [place] pulmonary disease (RES) Clinic Main with (acute) [place] exacerbation / Repository J44.1(ICD-10) 03/21/2018 Active Hypoxemia / WEAVER, SALVADOR Active [place] R09.02(ICD-10) (RES) Clinic Main [place] Repository 03/10/2018 Active Other chest pain / NA Active [facility] R07.89(ICD-10) Clinic Other [place] Repository 03/07/2018 Active Epigastric pain / NA Active [place] R10.13(ICD-10) Clinic Main [place] Repository PROCEDURES PROCEDURES No Procedure Records FoundRESULTS RESULTS ED PROV NOTE Observed: 11/24/2018 Status: COMPLETED Source: [facility] 10:30 PM CLINIC OTHER CAMPUS REPOSITORY HNO ID: [id number] Author: Ken Caraballo Service: Emergency Medicine Author Type: Nurse Practitioner Type: ED Provider Notes Filed: 11/25/2018 12:48 AM Note Text: ED Provider Note Patient Name: Yobany Londono SERVICE DATE: 11/24/18 History Patient presents with: Wound Check: pt states she had a hernia repair mid october, reports that her nightgown stuck to one of her incision sites right abdomen and tore off the scab Patient is a 38-year-old female who had hernia repair in mid October and states that she Toilet is From the incision site and that possibly everywhere. Incision site is slightly reddened. Patient denies chest pain, shortness of breath or difficulty breathing, abdominal pain, dizziness, abdominal pain. 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 - ORAL SURGERY PROCEDURE teeth removed - PAST SURGICAL HISTORY OF TM tubes - REMOVAL OF TONSILS,<14 Y/O Tonsillectomy - TUBAL LIGATION FAMILY HISTORY Problem Relation Age of Onset - Diabetes Father - Hypertension Mother - Cancer Mother liver cancer - other (osteoarthritis) Mother - Heart Maternal Grandmother - Cancer Maternal Grandmother - Diabetes Paternal Grandfather - Prostate Cancer Paternal Grandfather - Stroke Paternal Grandmother - Heart Sister hole in heart - Breast Cancer Sister - other (osteochondroma) Son - other (osteochondroma) Son - Emphysema Maternal Aunt - COPD Maternal Aunt Social History Social History Main Topics - Smoking status: Current Some Day Smoker Packs/day: 0.50 Years: 15.00 Types: Cigarettes Start date: 1994 - Smokeless tobacco: Never Used - Alcohol use No Comment: rare wine cooler- not while - Drug use: No - Sexual activity: Yes Partners: Male control/ protection: None, Tubal Ligation ALLERGIES Allergen Reactions - Seasonal Allergies Intolerance - Penicillins Rash, Vomiting JUST SENSITIVITY TO PCN PER DR FAJARDO Review of Systems Constitutional: Negative. HENT: Negative. Eyes: Negative. Respiratory: Negative. Cardiovascular: Negative. Gastrointestinal: Negative. Endocrine: Negative. Genitourinary: Negative. Musculoskeletal: Negative. Skin: Positive for wound. Allergic/Immunologic: Negative. Neurological: Negative. Hematological: Negative. Psychiatric/Behavioral: Negative. Physical Exam BP 130/67 Pulse 85 Temp (Src) 98.4 (Oral) Resp 16 Ht 5' 1 (1.55m) Wt 284 lb (128.8kg) SpO2 96% BMI 53.69 kg/(m2). Physical Exam Constitutional: She is oriented to person, place, and time. She appears well-developed and well-nourished. No distress. HENT: Head: Normocephalic and atraumatic. Right Ear: External ear normal. Left Ear: External ear normal. Nose: Nose normal. Mouth/Throat: Oropharynx is clear and moist. No oropharyngeal exudate. Eyes: Pupils are equal, round, and reactive to light. Conjunctivae and EOM are normal. Neck: Normal range of motion. Neck supple. No JVD present. No tracheal deviation present. Cardiovascular: Normal rate, regular rhythm, normal heart sounds and intact distal pulses. Pulmonary/Chest: Effort normal and breath sounds normal. No stridor. No respiratory distress. She has no wheezes. She has no rales. She exhibits no tenderness. Abdominal: Soft. Bowel sounds are normal. She exhibits no distension and no mass. There is no tenderness. There is no guarding. Musculoskeletal: Normal range of motion. She exhibits no edema, tenderness or deformity. Lymphadenopathy: She has no cervical adenopathy. Neurological: She is alert and oriented to person, place, and time. She displays normal reflexes. No cranial nerve deficit or sensory deficit. She exhibits normal muscle tone. Coordination normal. Skin: Skin is warm and dry. Capillary refill takes less than 2 seconds. She is not diaphoretic. Psychiatric: She has a normal mood and affect. Her behavior is normal. Judgment and thought content normal. Nursing note and vitals reviewed. Diagnostic Testing ED Labs Ordered and Reviewed CBC + AUTO DIFF (AK,AV,EU,FV,HL,PHUONG,MM,SP) - Abnormal; Notable for the following: Result Value Ref Range WBC 10.47 (*) 3.98 - 10.04 thou/cmm MCHC 30.7 (*) 31.6 - 34.8 % RDW-SD 47.5 (*) 36.4 - 46.3 fl Abs. Calloway 0.77 (*) 0.27 - 0.70 thou/cmm Abs. Eosin 0.54 (*) 0.00 - 0.31 thou/cmm Abs. Baso 0.12 (*) 0.01 - 0.08 thou/cmm All other components within normal limits BASIC METABOLIC PANEL (AK,AV,EU,FV,HL,PHUONG,MM,SP) MDRD GFR Procedures ED Course / Clinical Impression Clinical Impressions as of Nov 25 43 Encounter for post surgical wound check MDM / Disposition / Plan History of present illness, review of systems, physical examination as entered. After examination and assessment and interview of patient, as well as review of laboratory results, patient explains that she was worried over her postsurgical wound for hernia repair and the skin tore off with purulent drainage. There is no sign of purulent drainage, wound is not erythemic nor swollen and has become dehisced but no sign of infection. Patient's wound is cleansed with bacitracin and bandaging applied and instructions for care as such. Patient will follow up with primary care physician. Patient states verbal understanding of this plan of care and verbal agreement to same. Charting was made with the [place][email or web address] system and all efforts were made to correct such, though they may still exist. The patient was DISCHARGED: Counseled patient regarding lab results AND suspected diagnosis AND need for follow-up. Discharged home with verbal and written instructions. They were instructed to return as needed for persistent or worsening symptoms or any new concerns. Condition at time of disposition: stable SIGNATURE: Ken Caraballo APRN.RAN Cooper (Ran) Ilya 11/25/1845 HEMOGRAM/DIFF Collected: 11/24/2018 Status: F Source: [facility] 9:16 PM HEALTH SYSTEM REPOSITORY TYPE CODE TESTS RESULT OUT OF REFERENCE UNITS RANGE LAB WBC(LOINC) 3.98-10.04 thou/cmm WBC High 10.47 LAB RBC(LOINC) 3.93-5.22 mil/cmm RBC 4.57 LAB HGB(LOINC) 11.2-15.7 g/dL Hgb 12.9 LAB HCT(LOINC) 34.1-44.9 % Hct 42.0 LAB MCV(LOINC) 79.4-94.8 fl MCV 91.9 LAB MCH(LOINC) 25.6-32.2 pg MCH 28.2 LAB MCHC(LOINC 31.6-34.8 % ) Low MCHC 30.7 LAB RDW(LOINC) 11.7-14.4 % RDW 14.2 LAB RDWSD(LOIN 36.4-46.3 fl C) RDW SD High 47.5 LAB PLT(LOINC) 182-369 thou/cmm Platelet 267 LAB MPV(LOINC) 9.4-12.3 fl MPV 11.0 LAB SEG(LOINC) % Seg Neutrophil 55.4 LAB IGRE(LOINC % ) Immature Grans 0.20 LAB LYMPH(LOIN % C) Lymphocyte 30.7 LAB MNO(LOINC) % Monocyte 7.4 LAB EOSIN(LOIN % C) Eosinophil 5.2 LAB BASO(LOINC % ) Basophil 1.1 LAB SEGN(LOINC 1.56-6.13 thou/cmm ) Abs. Neut (ANC) 5.80 LAB IGAB(LOINC 0.00-0.05 thou/cmm ) Abs Immature Grans 0.02 LAB LYMN(LOINC 1.18-3.74 thou/cmm ) Abs. Lymph 3.21 LAB MONON(LOIN 0.27-0.70 thou/cmm C) Abs. High Calloway 0.77 LAB EOSN(LOINC 0.00-0.31 thou/cmm ) Abs. High Eosin 0.54 LAB BASON(LOIN 0.01-0.08 thou/cmm C) Abs. High Baso 0.12 Performed By: #### CBCD1 #### [place] [address] BASIC PANEL Collected: 11/24/2018 Status: F Source: [facility] 9:16 PM HEALTH SYSTEM REPOSITORY TYPE CODE TESTS RESULT OUT OF REFERENCE UNITS RANGE LAB NA(LOINC) 136-145 mEq/L Sodium Blood 139 LAB K(LOINC) 3.5-5.1 mEq/L Potassium Blood 3.9 LAB CL(LOINC) 98-107 mEq/L Chloride Blood 103 LAB CO2(LOINC) 21-32 mEq/L CO2 Blood 32 LAB GLU(LOINC) 70-99 mg/dL Glucose Blood 88 LAB BUN(LOINC) 7-18 mg/dL BUN Blood 12 LAB CREA(LOINC 0.51-0.95 mg/dL ) Creatinine Blood 0.64 LAB CA(LOINC) 8.5-10.1 mg/dL Calcium Blood 8.6 LAB ANGAP(LOIN 8-16 C) Anion Gap 8 Performed By: #### P8 #### [facility] [address] [place], [place] [address] MDRD GFR Collected: 11/24/2018 Status: F Source: [facility] 9:16 PM HEALTH SYSTEM REPOSITORY TYPE CODE TESTS RESULT OUT OF RANGE REFERENCE UNITS LAB GFRFN(LOINC >60mL/min/1.73m ) 2 eGFR >60 Result Comment: If the patient is , multiply the result by 1.210. Performed By: #### GFR #### [facility] [address] [place], [place] [address] ED TRIAGE NOTE Observed: 11/24/2018 Status: COMPLETED Source: [facility] 8:55 PM [facility] REPOSITORY HNO ID: [id number] Author: Ken Cooper (Ran) Ilya Service: Emergency Medicine Author Type: Nurse Practitioner Type: ED Triage Notes Filed: 11/24/2018 8:56 PM Note Text: ED INTAKE NOTE Patient Name: Yobany Londono Service Date: 11/24/18 BRIEF HPI: Provider in triage. Patient is a 38-year-old female who had hernia repair in mid October and states that she accidentally tore the scab from the incision site on right abdomen and pus flew everywhere. Incision site is slightly reddened and dehisced. BRIEF EXAM: Awake and Alert RRR Abd soft/NT/ND; no rebound/guarding INTAKE WORKUP: Bloodwork: CBC CMP SIGNATURE: Ken Caraballo APRN.CNP CNOV Observed: 11/20/2018 Status: COMPLETED Source: [facility] 4:30 PM [facility] REPOSITORY Office Visit ([id number]) YOBANY LONDONO ([id number]) 1980 F [facility] Date Time Provider Department 11/20/18 4:30 PM LUIS ARMANDO ORANTES During your visit today, we recorded the following information about you: Pulse Blood pressure Weight Height 82/minute 116/78 129 kg 1.549 m Luis Armando Orantes MD 11/24/2018 6:28 PM Signed Acute Care Surgery/Emergency General Surgery Clinic: Yobany Londono s/p Laparoscopic incisional hernia repair Interval history: Erythema at incision sites. ED visit after discharge. Given script for anti-biotics. Continues to smoke. Pain controlled or absent: Yes Tolerating regular diet: Yes Passing stool and flatus: Yes Wound healing well: skin glue intact and replaced prior. Exam: BP 116/78 Pulse 82 Ht 154.9 cm (5' 1) Wt 129 kg (284 lb 8 oz) BMI 53.76 kg/m? NAD Breathing comfortably Abdomen soft Incisions skin glue and scab/appearance, ecchymoses at the incisions, no drainage from incision sites. Appear to be healing slowly, PATHOLOGY RESULTS: none Impression/Plan: 38 year old female s/p Laparoscopic incisional hernia repair Pathology reviewed: No Return to work/school: Yes Activity restrictions: Progressively increase activity as tolerated. Call/follow-up if new or ongoing wound concerns Smoking cessation encouraged for ongoing wound healing Additional imaging/studies: No Luis Armando Orantes MD Department of General Surgery Section of Trauma, Surgical Critical Care, and Acute Care Surgery Jeimy Casas LPN 11/20/2018 5:11 PM Signed We reviewed your pathology report today. You may steadily increase your activity level. Your incisions are healing well. No further follow-up necessary unless new questions or concerns arise. We encourage you to stop smoking. finish your antibiotics. Please call if no improvement. Referring Provider: JUANY HOLT [[id number]] Allergies As of Date: 11/20/2018 Noted Allergy Reaction SEASONAL ALLERGIES 05/04/2013 5 - Intolerance PENICILLINS 02/11/2007 2 - Rash 11 - Vomiting Comments: JUST SENSITIVITY TO PCN PER DR FAJARDO Date Reviewed: 11/20/2018 Reviewed by: Jeimy Casas - Fully Assessed Reason for Visit: Surgical Follow Up [176] Cmt: hernia repair Primary Visit Diagnosis:Tobacco use disorder [F17.200] Other Visit Diagnosis:S/P laparoscopic hernia repair [Z98.890, Z87.19] Prescriptions as of 11/20/2018 Sig: CEPHALEXIN 500 MG CAPSULE Take 1 capsule by mouth four * METHOCARBAMOL 500 MG TABLET Take 1 tablet by mouth three * DEXTROMETHORPHAN-GUAIFENESIN * Take 10 mL by mouth every 6 h* DICYCLOMINE 10 MG CAPSULE Take 2 capsules by mouth thre* SYMBICORT 160 MCG-4.5 MCG/ACT* Inhale 2 Puffs into the lungs* CITALOPRAM 40 MG TABLET Take 1 tablet by mouth once d* OMEPRAZOLE 20 MG CAPSULE,GHASSAN* Take 1 capsule by mouth twice* SIMETHICONE 80 MG CHEWABLE TA* Take 1 tablet by mouth every * ALBUTEROL SULFATE HFA 90 MCG/* Inhale 2 Puffs as instructed * LORATADINE 10 MG TABLET Take 1 tablet by mouth once d* FLUTICASONE 50 MCG/ACTUATION * Use 2 Sprays in each nostril * CHOLECALCIFEROL (VITAMIN D3) * Take 1,000 Units by mouth onc* ALBUTEROL SULFATE 2.5 MG/3 ML* Use 3 mL via nebulizer every * MELOXICAM 15 MG TABLET TAKE ONE TABLET BY MOUTH ONCE* VITAMIN B COMPLEX CAPSULE TAKE ONE CAPSULE BY MOUTH YOLY* ACETAMINOPHEN 500 MG TABLET EVERY 6 HOURS NEEDED MULTIVITAMIN TABLET Take 1 tablet by mouth once d* DOCUSATE SODIUM 100 MG CAPSULE Take 1 capsule by mouth twice* Patient not taking: Reported on 11/20/2018 POLYETHYLENE GLYCOL 3350 17 G* Take 1 Packet by mouth once d* Patient not taking: Reported on 11/20/2018 GUAIFENESIN 100 MG/5 ML ORAL * Take 10 mL by mouth four time* Patient not taking: Reported on 11/20/2018 NICOTINE 21 MG/24 HR DAILY TR* Apply 1 Patch as directed yoly* Patient not taking: Reported on 11/20/2018 VITAMIN B COMPLEX TABLET Take 1 tablet by mouth once d* Patient not taking: Reported on 11/20/2018 Problem List As Of Date 11/20/2018 Noted Resolved Pulpitis [K04.01] INVALID FOR* OTHER LUNG DISEASE NEC [J98.4] INVALID FOR*03/09/2008 Tobacco use disorder [F17.200] INVALID FOR* More... Acute Bronchitis [J20.9] INVALID FOR* Chronic Airway Obstruction, not Elsewhere Class*INVALID FOR* Morbid obesity [E66.01] More... Back pain [M54.9] More... Osteochondroma, multiple [Q78.6] More... Asthma [J45.909] Depression with anxiety [F41.8] Asthma exacerbation [J45.901] INVALID FOR* SOB (shortness of breath) [R06.02] INVALID FOR* Fibromyalgia [M79.7] INVALID FOR* More... History of section [Z98.891] INVALID FOR* More... Obesity in [O99.210] INVALID FOR*03/07/2018 More... Supervision of normal [Z34.90] INVALID FOR*03/07/2018 Family history of seizure disorder [Z82.0] INVALID FOR* More... Encounter for sterilization [Z30.2] INVALID FOR* More... cardiac anomaly affecting , ante*INVALID FOR*03/07/2018 [Z34.90] INVALID FOR*03/07/2018 COPD exacerbation (HCC) [J44.1] INVALID FOR*03/24/2018 More... Obesity, Class III, BMI >= 40 E66.01 [E66.01] INVALID FOR* Healthcare maintenance [Z00.00] INVALID FOR*03/24/2018 More... On home O2 [Z99.81] INVALID FOR* SBO (small bowel obstruction) (HCC) [K56.609] INVALID FOR*11/09/2018 Incisional hernia with obstruction [K43.0] INVALID FOR*11/09/2018 More... Other instructions from your clinician: We reviewed your pathology report today. You may steadily increase your activity level. Your incisions are healing well. No further follow-up necessary unless new questions or concerns arise. We encourage you to stop smoking. finish your antibiotics. Please call if no improvement. Encounter Status:Closed by LUIS ARMANDO ORANTES MD on 11/24/18 PROGRESS Observed: 11/20/2018 Status: COMPLETED Source: [facility] 3:50 PM CLINIC OTHER CAMPUS REPOSITORY HNO ID: [id number] Author: Luis Armando Orantes Service: (none) Author Type: Physician Type: Progress Notes Filed: 11/24/2018 6:28 PM Note Text: Acute Care Surgery/Emergency General Surgery Clinic: Yobany Londono s/p Laparoscopic incisional hernia repair Interval history: Erythema at incision sites. ED visit after discharge. Given script for anti-biotics. Continues to smoke. Pain controlled or absent: Yes Tolerating regular diet: Yes Passing stool and flatus: Yes Wound healing well: skin glue intact and replaced prior. Exam: BP 116/78 Pulse 82 Ht 154.9 cm (5' 1) Wt 129 kg (284 lb 8 oz) BMI 53.76 kg/m? NAD Breathing comfortably Abdomen soft Incisions skin glue and scab/appearance, ecchymoses at the incisions, no drainage from incision sites. Appear to be healing slowly, PATHOLOGY RESULTS: none Impression/Plan: 38 year old female s/p Laparoscopic incisional hernia repair Pathology reviewed: No Return to work/school: Yes Activity restrictions: Progressively increase activity as tolerated. Call/follow-up if new or ongoing wound concerns Smoking cessation encouraged for ongoing wound healing Additional imaging/studies: No Luis Armando Orantes MD Department of General Surgery Section of Trauma, Surgical Critical Care, and Acute Care Surgery ED NOTE Observed: 11/17/2018 Status: COMPLETED Source: [place] 5:16 PM [facility] REPOSITORY HNO ID: [id number] Author: Elliott MercadoRn) TONY Kimble Service: Emergency Medicine Author Type: Registered Nurse Type: ED Notes Filed: 12/02/2018 2:06 PM Note Text: Chart audit completed by this RN 12/02/18 at 1405. ED PROV NOTE Observed: 11/17/2018 Status: COMPLETED Source: [place] 5:10 PM [facility] REPOSITORY HNO ID: [id number] Author: Jorge Caal MD Service: Emergency Medicine Author Type: Physician Type: ED Provider Notes Filed: 11/17/2018 5:20 PM Note Text: ED Provider Note Patient Name: Yobany Londono SERVICE DATE: 11/17/18 History Patient presents with: Wound Check Pt with laparoscopic incarcerated hernia repair on 11/08 Today noticed drainage and opening from right lower abdominal incision site No fevers, no abdominal pain, no nausea or vomiting Edema Location: Right lower abdomen Severity: Mild Onset quality: Gradual Chronicity: New Associated symptoms: rash Associated symptoms: no abdominal pain, no diarrhea, no fever, no nausea and no vomiting PAST MEDICAL HISTORY Diagnosis Date - Arthritis - Back pain since epidural 2001 - Chronic obstructive pulmonary disease (COPD) (HCC) - Depression with anxiety - Fibromyalgia shoulders - Hypertension diet controlled - Morbid obesity (HCC) - Osteochondroma, 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 - ORAL SURGERY PROCEDURE teeth removed - PAST SURGICAL HISTORY OF TM tubes - REMOVAL OF TONSILS,<14 Y/O Tonsillectomy - TUBAL LIGATION FAMILY HISTORY Problem Relation Age of Onset - Diabetes Father - Hypertension Mother - Cancer Mother liver cancer - other (osteoarthritis) Mother - Heart Maternal Grandmother - Cancer Maternal Grandmother - Diabetes Paternal Grandfather - Prostate Cancer Paternal Grandfather - Stroke Paternal Grandmother - Heart Sister hole in heart - Breast Cancer Sister - other (osteochondroma) Son - other (osteochondroma) Son - Emphysema Maternal Aunt - COPD Maternal Aunt Social History Social History Main Topics - Smoking status: Current Some Day Smoker Packs/day: 0.50 Years: 15.00 Types: Cigarettes Start date: 1994 - Smokeless tobacco: Never Used - Alcohol use No Comment: rare wine cooler- not while - Drug use: No - Sexual activity: Yes Partners: Male control/ protection: None, Tubal Ligation ALLERGIES Allergen Reactions - Seasonal Allergies Intolerance - Penicillins Rash, Vomiting JUST SENSITIVITY TO PCN PER DR FAJARDO Review of Systems Constitutional: Negative for fever. Respiratory: Negative. Cardiovascular: Negative. Gastrointestinal: Negative for abdominal pain, diarrhea, nausea and vomiting. Skin: Positive for rash. All other systems reviewed and are negative. Physical Exam BP 131/84 Pulse 98 Temp 96.9 Resp 18 Ht 5' 1 (1.55m) Wt 288 lb (130.6kg) SpO2 98% LMP 10/19/2018 BMI 54.45 kg/(m2). Physical Exam Constitutional: She is oriented to person, place, and time. She appears well-developed and well-nourished. HENT: Head: Normocephalic and atraumatic. Eyes: Right eye exhibits no discharge. Left eye exhibits no discharge. Pulmonary/Chest: No respiratory distress. Abdominal: Soft. Soft obese abdomen, with larger pannus Right lower abdomoen laparoscopic incision site open with scan drainage, purulent, and surrounding erythema Incision 1.5cm Surrounding erythema 3.5 cm No underlying masses, no fluctuance, no abdominal tenderness Neurological: She is alert and oriented to person, place, and time. Skin: No rash noted. Psychiatric: She has a normal mood and affect. Her behavior is normal. Judgment and thought content normal. Nursing note and vitals reviewed. Diagnostic Testing ED Labs Ordered and Reviewed - No data to display Procedures ED Course / Clinical Impression Clinical Impressions as of Nov 17 1710 Wound dehiscence Cellulitis of abdominal wall MDM / Disposition / Plan 38 year old female who is morbidly obese without a history of diabetes presents with a small surgical site wound infection. Pt with laparoscopic incarcerated hernia repair on 11/08 that was reported as uncomplicated. Today she noticed some drainage from her right sided lower abdominal incision site. NO systemic complaints. No fever. VSS. Small wound dehiscence with 3.5 cm surrounding cellulitis. No clinical evidence of underlying abscess formation. Started pt on oral skin ABX, and discussed proper wound care and f/u. Detailed RTER instructions were given at DC and pt states an understanding. Pt wound is small and appropriate for outpt f/u. Disposition The patient was discharged. Counseled patient regarding suspected diagnosis. As well as the need for follow-up. Discharged home with verbal and written instructions. They were instructed to return as needed for persistent or worsening symptoms or any new concerns. Condition at disposition is unchanged. The patient was DISCHARGED: Counseled patient regarding suspected diagnosis AND need for follow-up. Discharged home with verbal and written instructions. They were instructed to return as needed for persistent or worsening symptoms or any new concerns. Condition at time of disposition: stable SIGNATURE: MD Jorge Guerra MD 11/17/18 1720 ROLY Observed: 11/14/2018 Status: COMPLETED Source: [place] 12:00 AM CLINIC OTHER CAMPUS REPOSITORY Telephone (AKPRAUmair) YOBANY LONDONO ([id number]) 1980 [facility] Date Time Provider Department 11/14/18 SANDIE XIE CNP During your visit today, we recorded the following information about you: Sandie Xie APRN.CNP 11/14/2018 5:21 PM Signed Spoke with Ms. Londono who states she is doing well 5 days post discharge. Tolerating regular diet without difficulty and having normal bowel function. Review of discharge instructions included but not limited to signs and symptoms of infection, diet, activity restriction, pain control and incisional care. Ms. Londono states her follow up appointment is scheduled for 11/20/[address] Orantes. All questions answered to her stated satisfaction. ? Sandie Xie APRN.[facility] Emergency General Surgery 5:20 PM 11/14/2018 Allergies As of Date: 11/14/2018 Noted Allergy Reaction SEASONAL ALLERGIES 05/04/2013 5 - Intolerance PENICILLINS 02/11/2007 2 - Rash 11 - Vomiting Comments: JUST SENSITIVITY TO PCN PER DR FAJARDO Date Reviewed: 11/09/2018 Reviewed by: Faisal (Rn) TONY De La Rosa - Fully Assessed Reason for Visit: Post hospitalization follow-up [Other] Prescriptions as of 11/14/2018 Sig: ACETAMINOPHEN 500 MG TABLET EVERY 6 HOURS NEEDED ALBUTEROL SULFATE 2.5 MG/3 ML* Use 3 mL via nebulizer every * ALBUTEROL SULFATE HFA 90 MCG/* Inhale 2 Puffs as instructed * VITAMIN B COMPLEX CAPSULE TAKE ONE CAPSULE BY MOUTH YOLY* CHOLECALCIFEROL (VITAMIN D3) * Take 1,000 Units by mouth onc* CITALOPRAM 40 MG TABLET Take 1 tablet by mouth once d* DICYCLOMINE 10 MG CAPSULE Take 2 capsules by mouth thre* DOCUSATE SODIUM 100 MG CAPSULE Take 1 capsule by mouth twice* FLUTICASONE 50 MCG/ACTUATION * Use 2 Sprays in each nostril * GUAIFENESIN 100 MG/5 ML ORAL * Take 10 mL by mouth four time* DEXTROMETHORPHAN-GUAIFENESIN * Take 10 mL by mouth every 6 h* LORATADINE 10 MG TABLET Take 1 tablet by mouth once d* MELOXICAM 15 MG TABLET TAKE ONE TABLET BY MOUTH ONCE* METHOCARBAMOL 500 MG TABLET Take 1 tablet by mouth three * MULTIVITAMIN TABLET Take 1 tablet by mouth once d* NICOTINE 21 MG/24 HR DAILY TR* Apply 1 Patch as directed yoly* OMEPRAZOLE 20 MG CAPSULE,GHASSAN* Take 1 capsule by mouth twice* POLYETHYLENE GLYCOL 3350 17 G* Take 1 Packet by mouth once d* SIMETHICONE 80 MG CHEWABLE TA* Take 1 tablet by mouth every * SYMBICORT 160 MCG-4.5 MCG/ACT* Inhale 2 Puffs into the lungs* TRAMADOL 50 MG TABLET Take 1 tablet by mouth every * VITAMIN B COMPLEX TABLET Take 1 tablet by mouth once d* Problem List As Of Date 11/14/2018 Noted Resolved Pulpitis [K04.01] INVALID FOR* OTHER LUNG DISEASE NEC [J98.4] INVALID FOR*03/09/2008 Tobacco use disorder [F17.200] INVALID FOR* More... Acute Bronchitis [J20.9] INVALID FOR* Chronic Airway Obstruction, not Elsewhere Class*INVALID FOR* Morbid obesity [E66.01] More... Back pain [M54.9] More... Osteochondroma, multiple [Q78.6] More... Asthma [J45.909] Depression with anxiety [F41.8] Asthma exacerbation [J45.901] INVALID FOR* SOB (shortness of breath) [R06.02] INVALID FOR* Fibromyalgia [M79.7] INVALID FOR* More... History of section [Z98.891] INVALID FOR* More... Obesity in [O99.210] INVALID FOR*03/07/2018 More... Supervision of normal [Z34.90] INVALID FOR*03/07/2018 Family history of seizure disorder [Z82.0] INVALID FOR* More... Encounter for sterilization [Z30.2] INVALID FOR* More... cardiac anomaly affecting , ante*INVALID FOR*03/07/2018 [Z34.90] INVALID FOR*03/07/2018 COPD exacerbation (HCC) [J44.1] INVALID FOR*03/24/2018 More... Obesity, Class III, BMI >= 40 E66.01 [E66.01] INVALID FOR* Healthcare maintenance [Z00.00] INVALID FOR*03/24/2018 More... On home O2 [Z99.81] INVALID FOR* SBO (small bowel obstruction) (HCC) [K56.609] INVALID FOR*11/09/2018 Incisional hernia with obstruction [K43.0] INVALID FOR*11/09/2018 More... Encounter Status:Closed by SANDIE XIE on 11/14/18 PROGRESS Observed: 11/13/2018 Status: COMPLETED Source: [place] 2:35 PM [facility] REPOSITORY HNO ID: [id number] Author: Juana Schaffer Service: (none) Author Type: (none) Type: Progress Notes Filed: 11/13/2018 2:35 PM Note Text: Pap logged and normal pap letter sent to patient. Juana Sarbjit PROGRESS Observed: 11/12/2018 Status: COMPLETED Source: [place] 11:41 AM [facility] REPOSITORY HNO ID: [id number] Author: Angeles Auguste RN Service: (none) Author Type: (none) Type: Progress Notes Filed: 11/12/2018 11:43 AM Note Text: TRANSITION CARE MANAGEMENT (TCM) INITIAL CONTACT Attempted to contact patient for hospital discharge follow up, left a message. Encouraged patient to call with any needs or concerns, reminded of upcoming appt TRANSITION CARE MANAGEMENT: Date of Outreach: 11/10/2018 11/10/2018 Outreach Attempt 1: Contact Not Made - Outreach Attempt 2: Contact Not Made - Date of Discharge 11/09/2018 11/09/2018 Some recent data might be hidden SUMMARY: -Pt discharged from [facility] on 11/09/18. -Follow up appointment not scheduled. -Medication review, unable to complete. -Admitted for: Abdominal pain. Angeles Auguste RN-ZULEMA, BSN Care Coordination-[facility] [phone] PROGRESS Observed: 11/10/2018 Status: COMPLETED Source: [place] 11:29 AM [facility] REPOSITORY HNO ID: [id number] Author: Angeles Auguste RN Service: (none) Author Type: (none) Type: Progress Notes Filed: 11/12/2018 11:43 AM Note Text: Attempted to contact patient for hospital discharge follow up, left a message. Will attempt another outreach again Saturday. Angeles Auguste RN-ZULEMA, BSN Care Coordination-[facility] [phone] [facility] Observed: 11/10/2018 Status: COMPLETED Source: [place] 12:00 AM [facility] REPOSITORY Patient Outreach (FAMPWS) HOLIDAYYOBANY ([id number]) 1980 F DARYL Date Time Provider Department 11/10/18 ANGELES AUGUSTE (RN) JL During your visit today, we recorded the following information about you: Angeles Auguste RN 11/12/2018 11:43 AM Signed Attempted to contact patient for hospital discharge follow up, left a message. Will attempt another outreach again Saturday. Angeles Auguste RN-BC, BSN Care Coordination-[facility] [phone] Angeles Auguste RN 11/12/2018 11:43 AM Signed TRANSITION CARE MANAGEMENT ([facility]) INITIAL CONTACT Attempted to contact patient for hospital discharge follow up, left a message. Encouraged patient to call with any needs or concerns, reminded of upcoming appt TRANSITION CARE MANAGEMENT: Date of Outreach: 11/10/2018 11/10/2018 Outreach Attempt 1: Contact Not Made - Outreach Attempt 2: Contact Not Made - Date of Discharge 11/09/2018 11/09/2018 Some recent data might be hidden SUMMARY: -Pt discharged from [facility] on 11/09/18. -Follow up appointment not scheduled. -Medication review, unable to complete. -Admitted for: Abdominal pain. Angeles Auguste RN-BC, BSN Care Coordination-[facility] [phone] Allergies As of Date: 11/10/2018 Noted Allergy Reaction SEASONAL ALLERGIES 05/04/2013 5 - Intolerance PENICILLINS 02/11/2007 2 - Rash 11 - Vomiting Comments: JUST SENSITIVITY TO PCN PER DR FAJARDO Date Reviewed: 11/09/2018 Reviewed by: Faisal MercadoRn) TONY De La Rosa - Fully Assessed Reason for Visit: Transition Of Care [4074] Cmt: [facility] hospital discharge 11/09 Prescriptions as of 11/10/2018 Sig: ACETAMINOPHEN 500 MG TABLET EVERY 6 HOURS NEEDED ALBUTEROL SULFATE 2.5 MG/3 ML* Use 3 mL via nebulizer every * ALBUTEROL SULFATE HFA 90 MCG/* Inhale 2 Puffs as instructed * AZITHROMYCIN 250 MG TABLET Take 2 tablets day one, then,* VITAMIN B COMPLEX CAPSULE TAKE ONE CAPSULE BY MOUTH OYLY* CHOLECALCIFEROL (VITAMIN D3) * Take 1,000 Units by mouth onc* CITALOPRAM 40 MG TABLET Take 1 tablet by mouth once d* DICYCLOMINE 10 MG CAPSULE Take 2 capsules by mouth thre* DOCUSATE SODIUM 100 MG CAPSULE Take 1 capsule by mouth twice* FLUTICASONE 50 MCG/ACTUATION * Use 2 Sprays in each nostril * GUAIFENESIN 100 MG/5 ML ORAL * Take 10 mL by mouth four time* DEXTROMETHORPHAN-GUAIFENESIN * Take 10 mL by mouth every 6 h* LORATADINE 10 MG TABLET Take 1 tablet by mouth once d* MELOXICAM 15 MG TABLET TAKE ONE TABLET BY MOUTH ONCE* METHOCARBAMOL 500 MG TABLET Take 1 tablet by mouth three * MULTIVITAMIN TABLET Take 1 tablet by mouth once d* NICOTINE 21 MG/24 HR DAILY TR* Apply 1 Patch as directed yoly* OMEPRAZOLE 20 MG CAPSULE,GHASSAN* Take 1 capsule by mouth twice* POLYETHYLENE GLYCOL 3350 17 G* Take 1 Packet by mouth once d* PREDNISONE 20 MG TABLET Take 2 tablets by mouth once * SIMETHICONE 80 MG CHEWABLE TA* Take 1 tablet by mouth every * SYMBICORT 160 MCG-4.5 MCG/ACT* Inhale 2 Puffs into the lungs* TRAMADOL 50 MG TABLET Take 1 tablet by mouth every * VITAMIN B COMPLEX TABLET Take 1 tablet by mouth once d* Problem List As Of Date 11/10/2018 Noted Resolved Pulpitis [K04.01] INVALID FOR* OTHER LUNG DISEASE NEC [J98.4] INVALID FOR*03/09/2008 Tobacco use disorder [F17.200] INVALID FOR* More... Acute Bronchitis [J20.9] INVALID FOR* Chronic Airway Obstruction, not Elsewhere Class*INVALID FOR* Morbid obesity [E66.01] More... Back pain [M54.9] More... Osteochondroma, multiple [Q78.6] More... Asthma [J45.909] Depression with anxiety [F41.8] Asthma exacerbation [J45.901] INVALID FOR* SOB (shortness of breath) [R06.02] INVALID FOR* Fibromyalgia [M79.7] INVALID FOR* More... History of section [Z98.891] INVALID FOR* More... Obesity in [O99.210] INVALID FOR*03/07/2018 More... Supervision of normal [Z34.90] INVALID FOR*03/07/2018 Family history of seizure disorder [Z82.0] INVALID FOR* More... Encounter for sterilization [Z30.2] INVALID FOR* More... cardiac anomaly affecting , ante*INVALID FOR*03/07/2018 [Z34.90] INVALID FOR*03/07/2018 COPD exacerbation (HCC) [J44.1] INVALID FOR*03/24/2018 More... Obesity, Class III, BMI >= 40 E66.01 [E66.01] INVALID FOR* Healthcare maintenance [Z00.00] INVALID FOR*03/24/2018 More... On home O2 [Z99.81] INVALID FOR* SBO (small bowel obstruction) (HCC) [K56.609] INVALID FOR*11/09/2018 Incisional hernia with obstruction [K43.0] INVALID FOR*11/09/2018 More... Encounter Status:Closed by ANGELES AUGUSTE RN on 11/12/18 CNDS Observed: 11/09/2018 Status: COMPLETED Source: [place] 2:40 PM CLINIC OTHER CAMPUS REPOSITORY HNO ID: [id number] Author: Leidy Rain Service: General Surgery Author Type: Nurse Practitioner Type: Discharge Summaries Filed: 11/09/2018 2:41 PM Note Text: DISCHARGE SUMMARY PATIENT NAME: Yobany Londono Code Status: Not on file Highest Readmission Risk Score: 31 The 30 day readmissions risk score is derived from an internally validated risk model which evaluates patient level characteristics, utilization history, medication orders and lab results up until the day of discharge. Patients with a score of 40 or above are considered highest risk for readmission. Specific patient level drivers will be listed at the bottom of the summary. Admission Information Admission Information ADMIT DATE: 11/07/2018 DISCHARGE DATE: 11/09/2018 MY DOCTORS AND MEDICAL TEAM: My Main Hospital Doctor: Luis Armando Dawson Primary Care Provider: Juany Holt MD My Medical Team Members: Treatment Team: Attending Provider: Luis Armando Dawson MY CONDITION AT DISCHARGE: Stable REASON I WAS IN THE HOSPITAL: abdominal pain SUMMARY OF WHAT HAPPENED WHILE I WAS IN THE HOSPITAL: This is a 38 year old female who presented with abdominal pain that began after eating 2 mcchickens and a shake from [employer]. Patient states she vomited the food a couple of hours after. She was previously evaluated for a supra pubic hernia with Dr Chan but was instructed to lose weight prior to any repair. She states she has had pain at the hernia site on and off for the last year or so. 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 ?Slight increase in size since 08/12/2017 and a Small 3 cm right ovarian cyst. Ms. Zuluaga's hernia was reduced at the bedside in the Emergency Room. She was admitted to a routine nursing unit and serial abdominal exams were performed. She remained NPO with IV fluids. After discussio of risks and benfits, Ms. Londono went to the OR for a laparoscopic incisional hernia repair with intraperitoneal mesh per Dr. Orantes. Postoperatively, Ms. Londono was monitored overnight and started a diet the following morning. With toleration of diet, no increased abdominal pain, nausea, vomiting or abdominal distension, she is stable for discharge home with follow up in two weeks with Dr. Orantes. OTHER PROBLEMS/DIAGNOSIS: Principal Problem (Resolved): Incisional hernia with obstruction Active Problems: * No active hospital problems. * Resolved Problems: SBO (small bowel obstruction) (HCC) OPERATIONS PERFORMED WHILE IN THE HOSPITAL: Laparoscopic incisional hernia repair with intraperitoneal mesh IMPORTANT TEST/PROCEDURES: No procedures performed TEST RESULTS NOT AVAILABLE AT THIS TIME: No pending results Discharge Disposition Discharge Disposition: Home With Self Care Activity When You Leave the Hospital Lifting is restricted to: 10-15 pounds for 4 weeks May bathe and shower Avoid tubs/pools. May use stairs No driving for: While taking narcotic medications or until the ability to make quick movements without pain or discomfort No prolonged bedrest, longer than 8 hours in a 24 hour period No walking restrictions Diet Instructions Soft Foods For Pain When You Leave the Hospital No alcohol or driving while on pain medication Use acetaminophen (Tylenol) as recommended on the bottle Use the dispensed medication (see prescription) You should use an [id number] stool softener (Docusate sodium) and/or a fiber supplement (Metamucil, Fiber Con) every day while taking prescribed pain medication Wound/Surgical Site Care Leave open to air Wash your hands frequently, especially before touching your incision, after using restroom and before eating Your incision has skin glue. It will peel off on its own. It can get wet Call Your Doctor If There is an unusual odor from the wound area There is severe pain at the operative site You have lightheadedness, fainting, or confusion You have pain and swelling in your legs, especially if it is only on one side and not the other You have persistent nausea/vomiting over 24 hours You have persistent or heavy bleeding You have redness, swelling, pus or drainage from the wound You have swollen glands or cold and clammy skin Your temperature is greater than 101F Follow Up Appointments Follow-Up Appointment Post op follow up When: In 2 weeks Patient/Parents to call for appointment?: Yes Luis Armando Orantes [phone] [address] [facility] [id number] PCP Requested Referral Additional Provider to Provider Information: No notes on file Transitions of Care Critical Issues: SPECIALIST FOLLOW-UP: surgical Post Op follow up LABS AND PROCEDURES PENDING AT DISCHARGE: No pending results. FOLLOW-UP APPOINTMENTS ALREADY SCHEDULED WITH A [facility] PROVIDER: Future Appointments Date Time Provider Department Center 11/24/2018 10:30 AM [place] SURG RES [facility] [place] [facility] Allergen Reactions - Seasonal Allergies Intolerance - Penicillins Rash, Vomiting JUST SENSITIVITY TO PCN PER DR FAJARDO DISCHARGE MEDICATION: Current Discharge Medication List START taking these medications docusate sodium (COLACE) 100 mg Take 100 mg by mouth twice daily. polyethylene glycol 3350 (MIRALAX, GLYCOLAX) 17 g Take 17 g by mouth once daily. traMADol (ULTRAM) 50 mg Take 50 mg by mouth every 6 hours as needed. Qty: 28 tablet Refills: 0 Associated Diagnoses:Ventral hernia with obstruction and without gangrene CONTINUE these medications which have NOT CHANGED acetaminophen (TYLENOL) 500 mg tablet EVERY 6 HOURS NEEDED albuterol HFA (PROVENTIL HFA, VENTOLIN HFA) 2 Puffs Inhale 2 Puffs as instructed every 6 hours as needed for Wheezing/Shortness of Breath. Qty: 1 Inhaler Refills: 5 azithromycin (ZITHROMAX Z-ABRAHAN) 250 mg tablet Take 2 tablets day one, then, 1 tablet daily until gone. Qty: 1 Package Refills: 0 Associated Diagnoses:Sinobronchitis B Complex Vitamins capsule TAKE ONE CAPSULE BY MOUTH EVERY DAY Qty: 90 capsule Refills: 3 Cholecalciferol (Vitamin D3) 1,000 Units Take 1,000 Units by mouth once daily. citalopram (CeleXA) 40 mg Take 40 mg by mouth once daily. Qty: 90 tablet Refills: 2 Associated Diagnoses:Depression with anxiety dicyclomine (BENTYL) 20 mg Take 20 mg by mouth three times daily as needed. Qty: 60 capsule Refills: 5 Associated Diagnoses:Abdominal cramping fluticasone (FLONASE) 2 Sprays Use 2 Sprays in each nostril once daily. Rinse mouth after use. Qty: 1 Bottle Refills: 1 Associated Diagnoses:Bacterial sinusitis guaiFENesin (ROBITUSSIN) 200 mg Take 200 mg by mouth four times daily as needed for Cough. Qty: 236 mL Refills: 1 Associated Diagnoses:Cough guaiFENesin-dextromethorphan (ROBITUSSIN DM) 10 mL Take 10 mL by mouth every 6 hours as needed for Cough. Qty: 354 mL Refills: 1 loratadine (CLARITIN) 10 mg tablet Take 1 tablet by mouth once daily as needed. FOR ALLERGY SYMPTOMS Qty: 30 tablet Refills: 5 meloxicam (MOBIC) 15 mg tablet TAKE ONE TABLET BY MOUTH ONCE DAILY WITH FOOD Qty: 90 tablet Refills: 2 Comments: This prescription was filled on 03/21/2018. Any refills authorized will be placed on file. Associated Diagnoses:Acute pain of right knee methocarbamol (ROBAXIN) 500 mg Take 500 mg by mouth three times daily. Qty: 90 tablet Refills: 0 Associated Diagnoses:Muscle spasm multivitamin 1 tablet Take 1 tablet by mouth once daily. Refills: 0 nicotine (NICODERM) 1 Patch Apply 1 Patch as directed every 24 hours. Qty: 30 Patch Refills: 11 omeprazole (PriLOSEC) 20 mg Take 20 mg by mouth twice daily before meals. 1/2 hr before meal. Qty: 60 capsule Refills: 3 Associated Diagnoses:Abdominal pain, unspecified abdominal location predniSONE (DELTASONE) 40 mg Take 40 mg by mouth once daily. Take daily with food. Qty: 10 tablet Refills: 0 Associated Diagnoses:Sinobronchitis simethicone, chewable (MYLICON) 80 mg Take 80 mg by mouth every 6 hours as needed. Qty: 60 tablet Refills: 2 Associated Diagnoses:Abdominal gas pain SYMBICORT 160-4.5 mcg/actuation inhaler Inhale 2 Puffs into the lungs as instructed twice daily. Qty: 10.2 g Refills: 2 Comments: This prescription was filled on 10/21/2018. Any refills authorized will be placed on file. Associated Diagnoses:Moderate persistent asthma with exacerbation vitamin b complex 1 tablet Take 1 tablet by mouth once daily. Qty: 90 tablet Refills: 3 Associated Diagnoses:Cramp of both lower extremities albuterol (PROVENTIL) 2.5 mg Use 2.5 mg via nebulizer every 4 hours as needed for Wheezing/Shortness of Breath. Use over 5-15minutes. Qty: 120 Vial Refills: 1 Associated Diagnoses:Chronic obstructive pulmonary disease with acute exacerbation (HCC) The patient's risk for 30-day readmission is determined using the following contributing factors: Pt variables contributing to increased readmission risk: 20 Active Medication Orders 10 Most Recent BUN Result 8.5 First Resulted Calcium During Admission 3 Number of Previous ED Visits (6 mos.) 1 Previous ED Visit (6 mos.)? 1 Insurance - Medicaid 1 Discharge Disposition - Home 1 History of COPD 1 Active Anticoagulant 1 Number of Hospitalizations (12 mos.) TIME OF CARE: Discharge Management: I personally spent greater than 30 minutes involved in the discharge management of this patient. SIGNATURE: Leidy Rain APRN.CNP PAGER/CONTACT #: DATE: November 09, 2018 TIME: 2:40 PM PROGRESS Observed: 11/09/2018 Status: COMPLETED Source: [facility] 8:15 AM CLINIC OTHER CAMPUS REPOSITORY O ID: [id number] Author: Maribel Cabrera MD Service: General Surgery Author Type: Resident Type: Progress Notes Filed: 11/09/2018 8:28 AM Note Text: Emergency Surgery Progress Note SERVICE DATE: 11/09/2018 SUBJECTIVE: NAEON. POD#1 laparoscopic incisional hernia repair with intraperitoneal mesh. Tolerating diet: Regular There are no questions and answers to display. Nausea No Emesis No Flatus No Bowel movement No Pain Controlled Yes Ambulating Yes OBJECTIVE: Vitals: 11/08/18 2023 11/08/18 2333 11/09/18 0250 11/09/18 0729 BP: 119/66 109/59 109/62 102/51 Pulse: 88 83 78 78 Resp: Temp: 36.3 ?C (97.3 ?F) 36.7 ?C (98.1 ?F) 36.4 ?C (97.5 ?F) 36.8 ?C (98.2 ?F) TempSrc: Temporal Artery Temporal Artery Temporal Artery Oral SpO2: 94% 94% 93% 94% Weight: 129.9 kg (286 lb 6 oz) Height: IANDO: MEDICATIONS: Current Facility-Administered Medications: acetaminophen 650 mg tab(s) (TYLENOL) 650 mg ORAL q 6 H PRN Magda (Res) Fatchikova 650 mg at 11/09/18 0747 albuterol 2.5 mg /3 mL (0.083 %) 2.5 mg (PROVENTIL) 2.5 mg INHALATION q 4 H PRN Magda (Res) Fatchikova 2.5 mg at 11/08/18 1751 albuterol HFA 90 mcg/actuation 2 Puff (PROVENTIL HFA, VENTOLIN HFA) 2 Puff INHALATION q 6 H PRN Magda (Res) Fatchikova citalopram 40 mg tab(s) (CeleXA) 40 mg ORAL DAILY Magda (Res) Fatchikova 40 mg at 11/09/18 0747 dicyclomine 20 mg cap(s) (BENTYL) 20 mg ORAL TID PRN Magda (Res) Fatchikova 20 mg at 11/08/18 0438 enoxaparin 30 mg injection (LOVENOX) 30 mg SUBCUTANEOUS BID Magda (Res) Fatchikova 30 mg at 11/09/18 0747 fluticasone-vilanterol 100-25 mcg/dose 1 Inhalation (BREO ELLIPTA) 1 Inhalation INHALATION DAILY Magda (Res) Fatchikova 1 Inhalation at 11/09/18 0747 lactated ringers infusion 125 mL/hr INTRAVENOUS CONTINUOUS Magda (Res) Fatchikova Last Rate: 125 mL/hr at 11/09/18 0005 125 mL/hr at 11/09/18 0005 morphine 2 mg injection 2 mg INTRAVENOUS q 4 H PRN Maribel (Res) MD Rick 2 mg at 11/08/18 1204 NaCl 0.9% 2-10 mL 2-10 mL INTRAVENOUS q 12 H Magda (Res) Fatchikova 10 mL at 11/08/182023 ondansetron (PF) 4 mg injection (ZOFRAN) 4 mg INTRAVENOUS q 6 H PRN Magda (Res) Fatch[place]ova 4 mg at 11/08/[address] 40 mg tab(s) (PROTONIX) 40 mg ORAL DAILY (6 AM) Magda (Res) Fatchikova 40 mg at 11/09/18 0525 phenol 1 Heidrick (CHLORASEPTIC) 1 Heidrick MUCOUS MEMBRANE (TOPICAL MOUTH AND THROAT) q 2 H PRN Maribel (Res) MD Rick traMADol 50 mg tab(s) (ULTRAM) 50 mg ORAL q 6 H PRN Magda (Res) Fatch[place]ova 50 mg at 11/08/182022 Labs: WBC (thou/cmm) Date Value 11/09/2018 12.05 (H) RBC (mil/cmm) Date Value 11/09/2018 4.19 Hemoglobin (g/dL) Date Value 03/21/2018 13.2 HGB (g/dL) Date Value 11/09/2018 11.8 Hematocrit (%) Date Value 11/09/2018 39.1 MCV (fl) Date Value 11/09/2018 93.3 MCH (pg) Date Value 11/09/2018 28.2 MCHC (%) Date Value 11/09/2018 30.2 (L) RDW-CV (%) Date Value 03/21/2018 15.9 (H) Platelet Count (thou/cmm) Date Value 11/09/2018 208 MPV (fl) Date Value 11/09/2018 11.0 Glucose (mg/dL) Date Value 11/09/2018 88 BUN (mg/dL) Date Value 11/09/2018 10 Creatinine (mg/dL) Date Value 11/09/2018 0.68 Sodium (mEq/L) Date Value 11/09/2018 135 (L) Potassium (mEq/L) Date Value 11/09/2018 4.1 Chloride (mEq/L) Date Value 11/09/2018 97 (L) CO2 (mEq/L) Date Value 11/09/2018 33 (H) Protein, Total (g/dL) Date Value 11/07/2018 6.8 Albumin (g/dL) Date Value 11/07/2018 2.9 (L) Calcium (mg/dL) Date Value 11/09/2018 8.2 (L) Alkaline Phosphatase (U/L) Date Value 11/07/2018 55 Bilirubin, Total (mg/dL) Date Value 11/07/2018 0.3 AST (U/L) Date Value 11/07/2018 15 ALT (U/L) Date Value 11/07/2018 25 URINLAYSIS Specific [place], Ur Date Value Ref Range Status 11/07/2018 1.030 1.005 - 1.030 Final 11/07/2018 >=1.030 1.005 - 1.030 Final Glucose, Urine Date Value Ref Range Status 11/07/2018 NEGATIVE Negative mg/dL Final Bilirubin, Urine Date Value Ref Range Status 11/07/2018 see below (A) Negative Final Comment: Detected (Unable to confirm). Ketones, Urine Date Value Ref Range Status 11/07/2018 TRACE (A) Negative mg/dL Final Hemoglobin/Blood,Ur Date Value Ref Range Status 04/15/2018 Negative Negative Final Protein, Urine Date Value Ref Range Status 11/07/2018 NEGATIVE Negative mg/dL Final Urobilinogen, Urine Date Value Ref Range Status 11/07/2018 1.0 0.0 - 1.0 EU/dL Final Leukocytes Date Value Ref Range Status 04/15/2018 neg Neg Final WBC, Urine Date Value Ref Range Status 11/07/2018 0.0-2 0.0 - 5.0 /hpf Final Exam: GENERAL: Resting comfortably, alert, in no acute distress NEURO: AANDOx3, CN II-XII grossly intact HEENT: EOMI, normocephalic, atraumatic LUNGS: Unlabored breathing, equal chest rise bilaterally, b/l wheezing CARDIAC: Regular rate and rhythm as above ABDOMEN: Soft, min diffuse ttp, non-distended, incisions CDI with exofin and minimal bruising EXTREMITIES: VALVERDE, No deformities, No edema SKIN: Skin color, texture, turgor normal, No rashes or lesions ASSESSMENT AND PLAN: 38 year old female POD#1 Laparoscopic incisional hernia repair with intraperitoneal mesh 11/08 - Reg diet - Pain control - Encourage ambulation - Await bowel function Emergency General Surgery Service Pager: For questions or concerns Mon-Fri 6a-5p please page [phone]. After 5pm and on Weekends and Holidays, please page [phone] if in ICU or [phone] if on RNF. SIGNATURE: Maribel Cabrera MD PATIENT NAME: Yobany Starkey DATE: November 09, 2018 TIME: Pager: as above MDRD GFR Collected: 11/09/2018 Status: F Source: [facility] 2:35 AM HEALTH SYSTEM REPOSITORY TYPE CODE TESTS RESULT OUT OF RANGE REFERENCE UNITS LAB GFRFN(LOINC >60mL/min/1.73m ) 2 eGFR >60 Result Comment: If the patient is , multiply the result by 1.210. Performed By: #### GFR #### [place] [address] HEMOGRAM/DIFF Collected: 11/09/2018 Status: F Source: [facility] 2:35 AM HEALTH SYSTEM REPOSITORY TYPE CODE TESTS RESULT OUT OF REFERENCE UNITS RANGE LAB WBC(LOINC) 3.98-10.04 thou/cmm WBC High 12.05 LAB RBC(LOINC) 3.93-5.22 mil/cmm RBC 4.19 LAB HGB(LOINC) 11.2-15.7 g/dL Hgb 11.8 LAB HCT(LOINC) 34.1-44.9 % Hct 39.1 LAB MCV(LOINC) 79.4-94.8 fl MCV 93.3 LAB MCH(LOINC) 25.6-32.2 pg MCH 28.2 LAB MCHC(LOINC 31.6-34.8 % ) Low MCHC 30.2 LAB RDW(LOINC) 11.7-14.4 % RDW High 14.6 LAB RDWSD(LOIN 36.4-46.3 fl C) RDW SD High 49.6 LAB PLT(LOINC) 182-369 thou/cmm Platelet 208 LAB MPV(LOINC) 9.4-12.3 fl MPV 11.0 LAB SEG(LOINC) % Seg Neutrophil 74.1 LAB IGRE(LOINC % ) Immature Grans 0.30 LAB LYMPH(LOIN % C) Lymphocyte 17.9 LAB MNO(LOINC) % Monocyte 6.5 LAB EOSIN(LOIN % C) Eosinophil 0.5 LAB BASO(LOINC % ) Basophil 0.7 LAB SEGN(LOINC 1.56-6.13 thou/cmm ) Abs. High Neut (ANC) 8.93 LAB IGAB(LOINC 0.00-0.05 thou/cmm ) Abs Immature Grans 0.04 LAB LYMN(LOINC 1.18-3.74 thou/cmm ) Abs. Lymph 2.16 LAB MONON(LOIN 0.27-0.70 thou/cmm C) Abs. High Calloway 0.78 LAB EOSN(LOINC 0.00-0.31 thou/cmm ) Abs. Eosin 0.06 LAB BASON(LOIN 0.01-0.08 thou/cmm C) Abs. Baso 0.08 Performed By: #### CBCD1 #### [place] [address] BASIC PANEL Collected: 11/09/2018 Status: F Source: [facility] 2:35 AM HEALTH SYSTEM REPOSITORY TYPE CODE TESTS RESULT OUT OF REFERENCE UNITS RANGE LAB NA(LOINC) 136-145 mEq/L Low Sodium Blood 135 LAB K(LOINC) 3.5-5.1 mEq/L Potassium Blood 4.1 LAB CL(LOINC) 98-107 mEq/L Low Chloride Blood 97 LAB CO2(LOINC) 21-32 mEq/L CO2 High Blood 33 LAB GLU(LOINC) 70-99 mg/dL Glucose Blood 88 LAB BUN(LOINC) 7-18 mg/dL BUN Blood 10 LAB CREA(LOINC 0.51-0.95 mg/dL ) Creatinine Blood 0.68 LAB CA(LOINC) 8.5-10.1 mg/dL Low Calcium Blood 8.2 LAB ANGAP(LOIN 8-16 C) Anion Gap 9 Performed By: #### P8 #### [place] [address] PROGRESS Observed: 11/08/2018 Status: COMPLETED Source: [facility] 11:48 PM CLINIC OTHER CAMPUS REPOSITORY HNO ID: [id number] Author: Flaco Hernandez Ms Service: (none) Author Type: (none) Type: Progress Notes Filed: 11/08/2018 11:57 PM Note Text: Medical Student Post Op Note. 38 year old female s/p laparoscopic incisional hernia repair with intraperitoneal mesh. Surgery was uncomplicated. POD 1. Subjective: Patient seen and examined at bedside. Reports no acute events and is resting comfortably. Pain is well controlled, but she does complain of soreness of the entire abdomen. She also complains of some soreness in her throat. Denies any flatus or BM. Has drank water without any issues. Denies any nausea, vomiting, chest pain, shortness of breath, fevers, chills, headaches or trouble with urination. Objective: 11/08/18191411/08/18192911/08/18202211/08/18 2333 BP: 124/91 119/66 109/59 Pulse: 94 90 88 83 Resp: Temp: 36.3 ?C (97.3 ?F) 36.7 ?C (98.1 ?F) TempSrc: Temporal Artery Temporal Artery SpO2: 95% 94% 94% 94% Weight: Height: General- Patient is alert and oriented and in no acute distress. Resting comfortably in bed. CV- RRR, no m/r/g Lungs-Lungs CTAB, no w/r/r. Abdomen- soft and appropriately TTP. No masses or organomegaly. Incisions sites c/d/i A/P 38 year old female s/p laparoscopic incisional hernia repair with intraperitoneal mesh. 1. Encourage Ambulation 2. Advance Diet 3. IS use 4. Lovenox for DVT prophylaxis ANES POST Observed: 11/08/2018 Status: COMPLETED Source: [facility] 9:17 PM CLINIC OTHER CAMPUS REPOSITORY HNO ID: [id number] Author: Abdirashid Queen Service: Anesthesiology Author Type: Physician Type: Anesthesia PostOp Filed: 11/08/2018 9:18 PM Note Text: POST ANESTHESIA EVALUATION NOTE SERVICE DATE: 11/08/2018 SERVICE TIME: 9:17 PM : 1980 Vitals: 11/08/18 1109 11/08/18 1322 11/08/18 1735 11/08/18 1845 Temp: 36.6 ?C (97.9 ?F) (!) 35.9 ?C (96.6 ?F) 36.7 ?C (98.1 ?F) 36.8 ?C (98.2 ?F) 11/08/18 1830 11/08/18184411/08/18189911/08/181914 BP: 112/65 95/57 105/67 124/91 11/08/18184411/08/18189911/08/18191411/08/181929 Pulse: 97 93 94 90 11/08/18184411/08/18 19011/08/18191411/08/181929 Resp: 30 17 19 18 11/08/18184411/08/18189911/08/18191411/08/181929 SpO2: 95% 95% 95% 94% Validated Vital Signs: Yes POST ANES STATUS: No apparent anesthetic complications. The patient is appropriately hydrated with stable respiratory and cardiovascular status. Patient has safe and adequate airway control. The patient has appropriate pain relief and no significant post operative nausea or vomiting. The patient has achieved baseline mental status. Intra-Operative Events: No Significant Anesthesia Events Further assessment by Anesthesia Service: None Other Remarks: SIGNATURE: Abdirashid Queen MD PATIENT NAME: Yobany Starkey DATE: November 08, 2018 TIME: 9:17 PM PAGER/CONTACT #: CHEST 1 VIEW Observed: 11/08/2018 Status: F Source: [facility] 6:09 PM HEALTH SYSTEM REPOSITORY Performed at [facility] APPROVED BY: Sridhar Orozco MD EXAMINATION: CHEST RADIOGRAPH (SINGLE VIEW AP PORTABLE UPRIGHT) Clinical History: Shortness of breath. M: [id number]_4 Comparison: AP chest 03/21/2018. RESULT: Lines, tubes, and devices: None. Lungs and pleura: There is minimal subsegmental atelectasis in the mid left lung. No consolidation. No lung mass. No pleural effusion or pneumothorax. Cardiomediastinal silhouette: Normal cardiomediastinal silhouette. Other: IMPRESSION: No acute radiographic abnormality. Minimal subsegmental atelectasis in the mid left lung. BRIEF OP NOT Observed: 11/08/2018 Status: COMPLETED Source: [facility] 5:41 PM CLINIC OTHER CAMPUS REPOSITORY HNO ID: [id number] Author: Luis Armando Orantes Service: General Surgery Author Type: Physician Type: Brief Op Note Filed: 11/18/2018 8:39 PM Note Text: BRIEF OPERATIVE / PROCEDURE NOTE LOG ID: [id number] SURGERY/PROCEDURE DATE: 11/08/2018 INCISION/PROCEDURE START TIME: 2:11 PM INCISION CLOSE/PROCEDURE END TIME: 5:30 PM SURGEON(S)/PROCEDURALIST(S) AND GLOST KILN OPERATOR(S): Surgeon(s) and Role: * Luis Armando Orantes - Primary * Gentry Daniel - Resident - Assisting No Additional Staff SURGERY/PROCEDURE(S): 1. Laparoscopic incisional hernia repair with intraperitoneal mesh 2. Laparoscopic adhesiolysis ANESTHESIA: General FINDINGS: incisional hernia at prior Pfannenstiel incision, 3 cm defect primarily repaired with 0 V-loc suture then covered with intra-peritoneal mesh. Bowel all appeared viable. ESTIMATED BLOOD LOSS: 20 mls SPECIMENS: None COMPLICATIONS: None PRE-OP/PRE-PROCEDURE DIAGNOSIS: incisional hernia with obstruction POST-OP/POST-PROCEDURE DIAGNOSIS: Incisional hernia with obstruction [K43.0] SIGNATURE: Gentry Daniel MD PATIENT NAME: Yobany Starkey DATE: November 08, 2018 TIME: 5:41 PM PAGER/CONTACT #: [facility] Operative Staff Addendum I was present and participated in the entire procedure. Luis Armando Orantes MD ANES PREOP Observed: 11/08/2018 Status: COMPLETED Source: [facility] 5:38 PM [facility] REPOSITORY HNO ID: [id number] Author: Abdirashid Queen Service: Anesthesiology Author Type: Physician Type: Anesthesia PreOp Filed: 11/08/2018 5:41 PM Note Text: ANESTHESIOLOGY DAY OF SURGERY NOTE SERVICE DATE: 11/08/2018 SERVICE TIME: 5:38 PM Late entry : 1980 Procedure(s) (LRB): LAPAROSCOPIC HERNIORRHAPHY INGUINAL INCARCERATED (N/A) Surgeon(s): Luis Armando Daniel Estimated body mass index is 52.9 kg/m? as calculated from the following: Height as of this encounter: 154.9 cm (5' 1). Weight as of this encounter: 127 kg (279 lb 15.8 oz). Most recent hematocrit and potassium results: Hematocrit 43.1 11/08/2018 Potassium 3.9 11/08/2018 ANES DOS/PREOP NOTE: Vitals: 11/08/18 1109 11/08/18 1140 11/08/18 1155 11/08/18 1322 BP: 125/69 124/61 Pulse: 80 77 82 85 Resp: Temp: 36.6 ?C (97.9 ?F) (!) 35.9 ?C (96.6 ?F) TempSrc: Temporal Artery Tympanic SpO2: 93% 95% 95% 97% Weight: Height: ACTIVE PROBLEM LIST Pulpitis Tobacco Use Disorder Acute Bronchitis Chronic Airway Obstruction, Not Elsewhere Classified Morbid obesity Back Pain Osteochondroma, Multiple Asthma Depression With Anxiety Asthma Exacerbation Sob (Shortness of Breath) Fibromyalgia History of Section Family History of Seizure Disorder Encounter for Sterilization Obesity, Class III, BMI >= 40 E66.01 On Home O2 Sbo (Small Bowel Obstruction) (Formerly [facility]) Incisional Hernia With Obstruction PAST MEDICAL HISTORY Diagnosis Date - Arthritis - Back pain since epidural 2001 - Chronic obstructive pulmonary disease (COPD) (HCC) - Depression with anxiety - Fibromyalgia shoulders - Hypertension diet controlled - Morbid obesity (HCC) - Osteochondroma, 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 - ORAL SURGERY PROCEDURE teeth removed - PAST SURGICAL HISTORY OF TM tubes - REMOVAL OF TONSILS,<14 Y/O Tonsillectomy - TUBAL LIGATION FAMILY HISTORY Problem Relation Age of Onset - Diabetes Father - Hypertension Mother - Cancer Mother liver cancer - other (osteoarthritis) Mother - Heart Maternal Grandmother - Cancer Maternal Grandmother - Diabetes Paternal Grandfather - Prostate Cancer Paternal Grandfather - Stroke Paternal Grandmother - Heart Sister hole in heart - Breast Cancer Sister - other (osteochondroma) Son - other (osteochondroma) Son - Emphysema Maternal Aunt - COPD Maternal Aunt Social History: Social History Substance Use Topics - Smoking status: Current Some Day Smoker Packs/day: 0.50 Years: 15.00 Types: Cigarettes Start date: 1994 - Smokeless tobacco: Never Used - Alcohol use No Comment: rare wine cooler- not while No current facility-administered medications on file prior to encounter. Current Outpatient Prescriptions on File Prior to Encounter: acetaminophen (TYLENOL) 500 mg tablet EVERY 6 HOURS NEEDED albuterol HFA (VENTOLIN HFA) 90 mcg/actuation inhaler Inhale 2 Puffs as instructed every 6 hours as needed for Wheezing/Shortness of Breath. azithromycin (ZITHROMAX Z-ABRAHAN) 250 mg tablet Take 2 tablets day one, then, 1 tablet daily until gone. B Complex Vitamins capsule TAKE ONE CAPSULE BY MOUTH EVERY DAY Cholecalciferol, Vitamin D3, (VITAMIN D) 1,000 unit cap Take 1,000 Units by mouth once daily. citalopram (CELEXA) 40 mg tablet Take 1 tablet by mouth once daily. dicyclomine (BENTYL) 10 mg capsule Take 2 capsules by mouth three times daily as needed. fluticasone (FLONASE) 50 mcg/actuation nasal spray Use 2 Sprays in each nostril once daily. Rinse mouth after use. guaiFENesin (ROBITUSSIN) 100 mg/5 mL syrup Take 10 mL by mouth four times daily as needed for Cough. guaiFENesin-dextromethorphan (ROBITUSSIN DM) 100-10 mg/5 mL syrup Take 10 mL by mouth every 6 hours as needed for Cough. loratadine (CLARITIN) 10 mg tablet Take 1 tablet by mouth once daily as needed. FOR ALLERGY SYMPTOMS meloxicam (MOBIC) 15 mg tablet TAKE ONE TABLET BY MOUTH ONCE DAILY WITH FOOD methocarbamol (ROBAXIN) 500 mg tablet Take 1 tablet by mouth three times daily. multivitamin tablet Take 1 tablet by mouth once daily. nicotine (NICODERM) 21 mg/24 hr Apply 1 Patch as directed every 24 hours. omeprazole (PRILOSEC) 20 mg capsule Take 1 capsule by mouth twice daily before meals. 1/2 hr before meal. predniSONE (DELTASONE) 20 mg tablet Take 2 tablets by mouth once daily for 5 days. Take daily with food. simethicone, chewable (MYLICON) 80 mg chewable tablet Take 1 tablet by mouth every 6 hours as needed. SYMBICORT 160-4.5 mcg/actuation inhaler Inhale 2 Puffs into the lungs as instructed twice daily. vitamin b complex (B COMPLETE) tab Take 1 tablet by mouth once daily. albuterol (PROVENTIL) 2.5 mg /3 mL (0.083 %) nebulizer solution Use 3 mL via nebulizer every 4 hours as needed for Wheezing/Shortness of Breath. Use over 5-15minutes. Current Facility-Administered Medications: [MAR Hold due to Transfer] acetaminophen 650 mg tab(s) (TYLENOL) 650 mg ORAL q 6 H PRN Magda (Res) Fatchikova 650 mg at 11/08/18 0436 [MAR Hold due to Transfer] albuterol 2.5 mg /3 mL (0.083 %) 2.5 mg (PROVENTIL) 2.5 mg INHALATION q 4 H PRN Magda (Res) [place] 2.5 mg at 11/08/18 1140 [MAR Hold due to Transfer] albuterol HFA 90 mcg/actuation 2 Puff (PROVENTIL HFA, VENTOLIN HFA) 2 Puff INHALATION q 6 H PRN Magda (Res) Fatch[place]ova bupivacaine 0.5 % injection (MARCAINE MDV) X (OR/PROCEDURE) PRN Luis Armando Leukhardt 30 mL at 11/08/18 1423 [MAR Hold due to Transfer] citalopram 40 mg tab(s) (CeleXA) 40 mg ORAL DAILY Magda (Res) F[place]ova 40 mg at 11/08/18 0955 clindamycin iv piggyback 900 mg in D5W 50 mL (CLEOCIN) X (OR/PROCEDURE) CONTINUOUS Luis Armando Leukhardt 900 mg at 11/08/18 1400 [MAR Hold due to Transfer] dicyclomine 20 mg cap(s) (BENTYL) 20 mg ORAL TID PRN Magda (Res) Fatch[place]ova 20 mg at 11/08/18 0438 [MAR Hold due to Transfer] enoxaparin 30 mg injection (LOVENOX) 30 mg SUBCUTANEOUS BID Magda (Res) [place]ova 30 mg at 11/08/18 0955 [MAR Hold due to Transfer] fluticasone-vilanterol 100-25 mcg/dose 1 Inhalation (BREO ELLIPTA) 1 Inhalation INHALATION DAILY Magda (Res) [place]ova 1 Inhalation at 11/08/18 0955 Ipratropium 17 mcg/actuation 1-2 Puff (ATROVENT) 1-2 Puff INHALATION (PACU) PRN Abdirashid Queen [MAR Hold due to Transfer] lactated ringers infusion 125 mL/hr INTRAVENOUS CONTINUOUS Magda (Res) Fatchikova Last Rate: 125 mL/hr at 11/08/18 0709 125 mL/hr at 11/08/18 0709 [MAR Hold due to Transfer] morphine 2 mg injection 2 mg INTRAVENOUS q 4 H PRN Maribel (Res) MD Rick 2 mg at 11/08/18 1204 [MAR Hold due to Transfer] NaCl 0.9% 2-10 mL 2-10 mL INTRAVENOUS q 12 H Magda (Res) Fatchikova [MAR Hold due to Transfer] ondansetron (PF) 4 mg injection (ZOFRAN) 4 mg INTRAVENOUS q 6 H PRN Magda (Res) Fatchikova 4 mg at 11/08/18 0424 [MAR Hold due to Transfer] pantoprazole DR 40 mg tab(s) (PROTONIX) 40 mg ORAL DAILY (6 AM) Magda (Res) Fatch[place]ova 40 mg at 11/08/18 0438 [MAR Hold due to Transfer] traMADol 50 mg tab(s) (ULTRAM) 50 mg ORAL q 6 H PRN Magda (Res) Fatchikova 50 mg at 11/08/18 1205 Allergies: ALLERGIES Allergen Reactions - Seasonal Allergies Intolerance - Penicillins Rash, Vomiting JUST SENSITIVITY TO PCN PER DR FAJARDO DOS EXAM: Adequate NPO status: Yes Anesthetic risks, benefits, alternatives, personnel and consent discussed: Yes Patient agrees to proceed: Yes Previous Anesthesia: No history of adverse event. Airway Assessment: MP 3; Neck ROM: Full ROM without neurologic symptoms; Airway Evaluation: Short Neck, Thick neck and Small Mouth Opening Symptoms of Sleep Apnea: Snoring, Hypertension, BMI > 35 and Neck circumference > 15.75 inches Dentition: Edentulous Additional Physical Exam: Lungs: Patient health status unchanged since recent history and physical. See history and physical for exam findings. Cardiac: Patient health status unchanged since recent history and physical. See history and physical for exam findings. Additional Pertinent Findings: N/A Blood Products: Not anticipated for this procedure. Anesthetic Plan: General, Standard ASA Monitors Pain Management Plan: Parenteral or Oral ASA Class: 3 Other Medical Problems: HCG negative, WBC 14.7 Chronic Beta Brian medication administered within 24 hours: N/A I have interviewed and examined the patient. I have reviewed the medical record and/or the pre-anesthesia evaluation, pertinent labs, and test results. Significant changes in the patient's condition since the History and Physical, not otherwise documented in primary service progress notes: No This contains updated information obtained within 48 hours of Surgery/Procedure. SIGNATURE: Abdirashid Queen MD PATIENT NAME: Yobany Starkey Hol DATE: November 08, 2018 TIME: 5:38 PM CSN: [id number] OR ABDOMEN 1 VIEW IN Observed: 11/08/2018 Status: F Source: [facility] 5:07 PM HEALTH SYSTEM REPOSITORY Performed at [facility] APPROVED BY: Sridhar Orozco MD EXAM TITLE: OR ABDOMEN DATE: 11/08/2018 16:37 COMPARISON: CT abdomen pelvis 11/07/2018. CLINICAL INDICATION/HISTORY: Pancreatic needle count. TECHNIQUE: A total of 3 AP images were obtained of the abdomen. FINDINGS: No evidence of retained radiopaque foreign body on the supplied images. Image quality somewhat limited due to patient body habitus and portable technique. No definite bowel obstruction. IMPRESSION: No evidence of retained radiopaque foreign body. COMMUNICATION: Communicated with: Dr. Rafita Daniel on 11/08/2018 at 17:33. OPERATIVE NO Observed: 11/08/2018 Status: COMPLETED Source: [place] [facility] 1:27 PM [facility] OTHER CAMPUS REPOSITORY O ID: [id number] Author: Luis Armando Orantes Service: General Surgery Author Type: Physician Type: Operative Report Filed: 11/24/2018 11:56 AM Note Text: OPERATIVE REPORT LOG ID: [id number] Surgery/Procedure Date: 11/08/2018 Incision/Procedure Start Time: 2:11 PM Incision Close/Procedure End Time: 5:30 PM Surgeon(s)/Proceduralist(s) and Bulk Plant Agent(s): Surgeon(s) and Role: * Luis Armando Orantes - Primary * Gentry Daniel - Resident - Assisting ? SURGERY/PROCEDURE(S): 1. Laparoscopic incisional hernia repair with intraperitoneal mesh 2. Laparoscopic adhesiolysis ? ANESTHESIA: General ? FINDINGS: incisional hernia at prior Pfannenstiel incision, 3 cm defect primarily repaired with 0 V-loc suture then covered with intra-peritoneal mesh. Bowel all appeared viable. ? ESTIMATED BLOOD LOSS: 20 mls ? SPECIMENS: None ? COMPLICATIONS: None ? PRE-OP/PRE-PROCEDURE DIAGNOSIS: incisional hernia with obstruction ? POST-OP/POST-PROCEDURE DIAGNOSIS: Incisional hernia with obstruction [K43.0] Indication for Procedure: Yobany Londono is a 38 year old who presented with an incarcerated incisional hernia at the location of a previous Pfannenstiel incision that was difficult to definitively reduce. History, exam, laboratory evaluation and imaging were notable for a leukocytosis, abdominal pain and nausea.. The risks, benefits and alternatives to the procedure with discussed with the patient, family and/or the patient's medical power of title attorney. The risks discussed include but are not limited to potential complications of anesthesia, infection, bleeding, nerve injury, hernia, device or staple failure, postoperative pain, need for a blood transfusion, infection, operative site hernia, injury to adjacent structures, need for additional operation or procedure and other factors. All questions were answered and consent was obtained from the patient. Description of Procedure: After a pre-operative huddle the patient was taken to the operating room. After induction of general anesthesia, placement of a jacob catheter, OG tube placement, administration/confirmation of deidre-operative antibiotics and VTE prophylaxis, the patient was positioned, prepped and draped in usual sterile fashion and the surgical safety checklist was performed. An epigastric cut down was performed securing the edges of the fascia with 0 vicryl stay sutures. A 12 mm airseal port was introduced using the Nick technique. The abdomen inflated without difficulty to 15 mm Hg two left side 5 mm ports were placed in the right upper and lower quadrant and one along the left mid-abdomen. The harmonic was used to take down omental adhesions from the anterior abdominal wall and the hernia defect. The small bowel was reduced upon induction of anesthesia and appeared healthy. After the adhesions were divided and cleared from the hernia defect, the edges were localized with spinal needles. The defect was 3 cm and a circular 12 cm coated laparoscopic mesh was chosen to cover the defect. An 0 V-lock suture was used to close the primary defect. The mesh was introduced through the 12 mm port positioned with the localizing suture and a Rafael Evi and tied through stab incisions. The insufflation was decreased and the Absorba-tack was used for two circumferential rings of tacks with a satisfactory result. The 5 mm ports were removed under direct visualization. The abdomen was desufflated. The fascial sutures were used to close the anterior and posterior sheath at the cut down site. 3-0 vicryl and 4-0 Monocryl suture were used to close the skin. Skin glue was placed over the incisions. The jacob was removed and the patient was extubated without difficulty. I was present, scrubbed and participated throughout the entire procedure. Sponge, needle and instrument counts were reported correct. Luis Armando Orantes MD Department of General Surgery Section of Trauma, Surgical Critical Care, and Acute Care Surgery Addendum to correct dictation. Sponge and needle counts were not immediately reported as correct therefore an X-ray was obtained and read by radiology staff reflecting no evidence of retained radiopaque foreign body. Luis Armando Orantes MD HEMOGRAM/DIFF Collected: 11/08/2018 Status: F Source: [facility] 4:15 AM HEALTH SYSTEM REPOSITORY TYPE CODE TESTS RESULT OUT OF REFERENCE UNITS RANGE LAB WBC(LOINC) 3.98-10.04 thou/cmm WBC High 14.72 LAB RBC(LOINC) 3.93-5.22 mil/cmm RBC 4.60 LAB HGB(LOINC) 11.2-15.7 g/dL Hgb 12.9 LAB HCT(LOINC) 34.1-44.9 % Hct 43.1 LAB MCV(LOINC) 79.4-94.8 fl MCV 93.7 LAB MCH(LOINC) 25.6-32.2 pg MCH 28.0 LAB MCHC(LOINC 31.6-34.8 % ) Low MCHC 29.9 LAB RDW(LOINC) 11.7-14.4 % RDW High 14.5 LAB RDWSD(LOIN 36.4-46.3 fl C) RDW SD High 49.6 LAB PLT(LOINC) 182-369 thou/cmm Platelet 204 LAB MPV(LOINC) 9.4-12.3 fl MPV 11.6 LAB SEG(LOINC) % Seg Neutrophil 59.9 LAB IGRE(LOINC % ) Immature Grans 0.50 LAB LYMPH(LOIN % C) Lymphocyte 31.8 LAB MNO(LOINC) % Monocyte 6.3 LAB EOSIN(LOIN % C) Eosinophil 0.8 LAB BASO(LOINC % ) Basophil 0.7 LAB SEGN(LOINC 1.56-6.13 thou/cmm ) Abs. High Neut (ANC) 8.82 LAB IGAB(LOINC 0.00-0.05 thou/cmm ) Abs High Immature Grans 0.07 LAB LYMN(LOINC 1.18-3.74 thou/cmm ) Abs. High Lymph 4.68 LAB MONON(LOIN 0.27-0.70 thou/cmm C) Abs. High Calloway 0.93 LAB EOSN(LOINC 0.00-0.31 thou/cmm ) Abs. Eosin 0.12 LAB BASON(LOIN 0.01-0.08 thou/cmm C) Abs. High Baso 0.10 Performed By: #### CBCD1 #### [place] [address] BASIC PANEL Collected: 11/08/2018 Status: F Source: [facility] 4:15 AM HEALTH SYSTEM REPOSITORY TYPE CODE TESTS RESULT OUT OF REFERENCE UNITS RANGE LAB NA(LOINC) 136-145 mEq/L Low Sodium Blood 135 LAB K(LOINC) 3.5-5.1 mEq/L Potassium Blood 3.9 LAB CL(LOINC) 98-107 mEq/L Low Chloride Blood 97 LAB CO2(LOINC) 21-32 mEq/L CO2 High Blood 34 LAB GLU(LOINC) 70-99 mg/dL Glucose Blood 76 LAB BUN(LOINC) 7-18 mg/dL BUN Blood 12 LAB CREA(LOINC 0.51-0.95 mg/dL ) Creatinine Blood 0.69 LAB CA(LOINC) 8.5-10.1 mg/dL Calcium Blood 8.7 LAB ANGAP(LOIN 8-16 C) Anion Gap 8 Performed By: #### P8 #### [place] [address] ED PROV NOTE Observed: 11/08/2018 Status: COMPLETED Source: [facility] 1:43 AM CLINIC OTHER CAMPUS REPOSITORY HNO ID: [id number] Author: Soy Serrano MD Service: Emergency Medicine Author Type: Physician Type: ED Provider Notes Filed: 11/09/2018 4:33 AM Note Text: ED Resident Continuation of Care Note November 08, 2018 1:43 AM Yobany Londono was endorsed to me by Dr. Martin. Briefly, the patient initially presented to the ED for abd pain, nausea, and vomiting. Signout note reviewed : The patient is an obese 38 year old female with a significant past medical history of prior abdominal surgeries, ventral hernia, hiatal hernia, small bowel obstruction on 10/02/2018, COPD, and hypertension, who presents to the ED for evaluation of periumbilical abdominal pain for the past day. Concern for SBO Diagnostics were reviewed. Thao findings: Results for orders placed or performed during the hospital encounter of 11/07/18 CT ABD/PEL W IVCON Result Value Ref Range Oil Sprayer EXAMINATION: CT ABDOMEN AND PELVIS WITH IV CONTRAST CLINICAL HISTORY: SBO intermittent or low-grade suspected TECHNIQUE: Routine helical scanning of the abdomen and pelvis with IV contrast. Contrast: IV: 150 ml Omnipaque 300 Oral: None. CT Radiation dose: Integrated Dose-length product (DLP) for this visit = 1336 mGy*cm. CT Dose Reduction Employed: Automated exposure control. COMPARISON: 08/12/2017 CT of abdomen and pelvis RESULT: Lower chest: Partially calcified mass in the lateral left lung base is stable. Associated deformity of the adjacent left eighth rib is also unchanged. Peritoneum/mesentery: There is no free intraperitoneal air or significant free fluid. Liver: Hepatomegaly with maximum craniocaudal measurement of at least 21 cm. No focal mass. Biliary: Normal. Spleen: Normal. Pancreas: Normal. Kidneys/urinary: Normal. Adrenals: Normal. GI tract: There are a few loops of dilated small bowel in the lowe r abdomen and pelvis with associated air-fluid levels consistent with mechanical small bowel obstruction. The bowel obstruction is secondary to herniation of a short segment of small bowel into a midline ventral hernia just above the pubic symphysis. Mild colonic diverticulosis. Appendix not visualized. Lymph nodes: Negative. Vasculature: Within normal limits. Pelvis: Left adnexal known dermoid tumor currently measures 5.4 x 4.3 x 4.3 cm. This is compared with previous dimensions of 4.7 x 4.3 x 3.8 cm. Right adnexal 3 cm cystic mass also noted. No pelvic fluid collections or adenopathy. Bones/soft tissue: Within normal limits. IMPRESSION: 1. Mechanical small bowel obstruction secondary to herniation of a short segment of small bowel into a midline ventral hernia just above the pubic symphysis. 2. Left ovarian dermoid tumor with maximum diameter of 5.4 cm. Slight increase in size since 08/12/2017. 3. Small 3 cm right ovar andrew cyst. HCG QUALITATIVE URINE (AK,AV,EU,,,PHUONG,MM,SP) Result Value Ref Range HCG Qualitative, Urine Negative Negative Specific Mauk, Ur 1.030 1.005 - 1.030 URINALYSIS WITH MICROSCOPIC (AK,AV,EU,FV,HL,PHOUNG,MM,SP) Result Value Ref Range Color YELLOW Urine Appearance 1+ (HAZY) Glucose, Urine NEGATIVE Negative mg/dL Ketones, Urine TRACE (A) Negative mg/dL Hemoglobin, Urine NEGATIVE Negative Protein, Urine NEGATIVE Negative mg/dL Nitrites Urine NEGATIVE Negative Bilirubin, Urine see below (A) Negative Specific [place], Ur >=1.030 1.005 - 1.030 pH, Urine 6.5 5.0 - 8.0 Urobilinogen, Urine 1.0 0.0 - 1.0 EU/dL Leukocytes Esterase NEGATIVE Negative RBC, Urine 0.0-3 0.0 - 5.0 /hpf WBC, Urine 0.0-2 0.0 - 5.0 /hpf EP Cells Urine 0.0-2 0.0 - 5.0 /hpf Bacteria, Urine NONE None Mucus Threads FEW (A) None Hyaline Cast NONE 0.0 - 1.0 /lpf COMPREHENSIVE METABOLIC PANEL (VT,AV,,,,PHUONG,MM,SP) Result Value Ref Range Sodium 137 136 - 145 mEq/L Potassium 3.9 3.5 - 5.1 mEq/L Chloride 98 98 - 107 mEq/L CO2 34 (H) 21 - 32 mEq/L Glucose 103 (H) 70 - 99 mg/dL BUN 12 7 - 18 mg/dL Creatinine 0.63 0.51 - 0.95 mg/dL Calcium 8.5 8.5 - 10.1 mg/dL Albumin 2.9 (L) 3.4 - 5.0 g/dL Protein, Total 6.8 6.4 - 8.2 g/dL AST 15 9 - 37 U/L ALT 25 12 - 78 U/L Alkaline Phosphatase 55 46 - 116 U/L Bilirubin, Total 0.3 0.2 - 1.0 mg/dL Anion Gap 9 8 - 16 CBC + AUTO DIFF (AK,AV,EU,FV,HL,PHUONG,MM,SP) Result Value Ref Range WBC 13.46 (H) 3.98 - 10.04 thou/cmm RBC 4.53 3.93 - 5.22 mil/cmm HGB 12.8 11.2 - 15.7 g/dL Hematocrit 41.7 34.1 - 44.9 % MCV 92.1 79.4 - 94.8 fl MCH 28.3 25.6 - 32.2 pg MCHC 30.7 (L) 31.6 - 34.8 % RDW 14.2 11.7 - 14.4 % RDW-SD 48.2 (H) 36.4 - 46.3 fl Platelet Count 238 182 - 369 thou/cmm MPV 11.4 9.4 - 12.3 fl Seg Neutrophil 69.1 % Immature Grans 0.70 % Lymphocyte 22.6 % Monocyte 7.1 % Eosinophil 0.1 % Basophil 0.4 % Abs. Neut(Anc) 9.30 (H) 1.56 - 6.13 thou/cmm Immature Grans # 0.09 (H) 0.00 - 0.05 thou/cmm Abs. Lymph 3.04 1.18 - 3.74 thou/cmm Abs. Calloway 0.96 (H) 0.27 - 0.70 thou/cmm Abs. Eosin 0.01 0.00 - 0.31 thou/cmm Abs. Baso 0.05 0.01 - 0.08 thou/cmm LIPASE BLOOD (AK,AV,EU,FV,HL,PHUONG,MM,SP) Result Value Ref Range Lipase 98 73 - 393 U/L LACTIC ACID,POC(AK) Result Value Ref Range Lactate (POCT) 1.2 0.5 - 2.2 mEq/L MDRD GFR Result Value Ref Range eGFR >60 >60mL/min/1.73m2 BASIC METABOLIC PANEL (AK,AV,EU,FV,HL,PHUONG,MM,SP) Result Value Ref Range Sodium 135 (L) 136 - 145 mEq/L Potassium 3.9 3.5 - 5.1 mEq/L Chloride 97 (L) 98 - 107 mEq/L CO2 34 (H) 21 - 32 mEq/L Glucose 76 70 - 99 mg/dL BUN 12 7 - 18 mg/dL Creatinine 0.69 0.51 - 0.95 mg/dL Calcium 8.7 8.5 - 10.1 mg/dL Anion Gap 8 8 - 16 CBC + AUTO DIFF (AK,AV,EU,FV,HL,PHUONG,MM,SP) Result Value Ref Range WBC 14.72 (H) 3.98 - 10.04 thou/cmm RBC 4.60 3.93 - 5.22 mil/cmm HGB 12.9 11.2 - 15.7 g/dL Hematocrit 43.1 34.1 - 44.9 % MCV 93.7 79.4 - 94.8 fl MCH 28.0 25.6 - 32.2 pg MCHC 29.9 (L) 31.6 - 34.8 % RDW 14.5 (H) 11.7 - 14.4 % RDW-SD 49.6 (H) 36.4 - 46.3 fl Platelet Count 204 182 - 369 thou/cmm MPV 11.6 9.4 - 12.3 fl Seg Neutrophil 59.9 % Immature Grans 0.50 % Lymphocyte 31.8 % Monocyte 6.3 % Eosinophil 0.8 % Basophil 0.7 % Abs. Neut(Anc) 8.82 (H) 1.56 - 6.13 thou/cmm Immature Grans # 0.07 (H) 0.00 - 0.05 thou/cmm Abs. Lymph 4.68 (H) 1.18 - 3.74 thou/cmm Abs. Calloway 0.93 (H) 0.27 - 0.70 thou/cmm Abs. Eosin 0.12 0.00 - 0.31 thou/cmm Abs. Baso 0.10 (H) 0.01 - 0.08 thou/cmm MDRD GFR Result Value Ref Range eGFR >60 >60mL/min/1.73m2 Clinical Course: found to have SBO, surgery consulted --Mechanical small bowel obstruction secondary to herniation of a short segment of small bowel into a midline ventral hernia just above the pubic symphysis. --Surgery at bedside, placed orders for analgesia, they will attempt to reduce, then admit to Dr. DAWSON. Admitted in stable condition. MD Omid Alanis (Res) MD Melchor Resident 11/08/18 0060 Soy Serrano MD 11/09/18 8675 ED NOTE Observed: 11/08/2018 Status: COMPLETED Source: [facility] 1:41 AM CLINIC OTHER CAMPUS REPOSITORY HNO ID: [id number] Author: Neyda Barboza) TONY Griffin Service: Emergency Medicine Author Type: Registered Nurse Type: ED Notes Filed: 11/08/2018 1:41 AM Note Text: Surgery at bedside to reduce hernia. ED NOTE Observed: 11/08/2018 Status: COMPLETED Source: [facility] 12:49 AM [facility] REPOSITORY HNO ID: [id number] Author: Neyda Barboza) TONY Griffin Service: Emergency Medicine Author Type: Registered Nurse Type: ED Notes Filed: 11/08/2018 12:49 AM Note Text: Patient's pain level has improved. C/O nausea. HISTORY PHYSICAL Observed: 11/08/2018 Status: COMPLETED Source: [facility] 12:41 AM [facility] REPOSITORY HNO ID: [id number] Author: Magda Wilde Service: General Surgery Author Type: Resident Type: HANDP Filed: 11/08/2018 3:21 AM Note Text: Attestation signed by Luis Armando Dawson at 11/08/2018 4:15 PM Discussed with the resident and agree with resident's findings and plan as documented in the resident's note. HISTORY AND PHYSICAL SERVICE DATE: 11/08/2018 SERVICE TIME: 12:10 AM PRIMARY CARE PHYSICIAN: Juany Holt MD Subjective CHIEF COMPLAINT: Abdominal Pain HPI: This is a 38 year old female who presents with abdominal pain that began this morning after eating 2 mcchickens and a shake from [employer]. Patient states she vomited the food a couple of hours after. She denies fevers, chills, SOB, CP, hematemesis, hematochezia, diarrhea. Her last BM was in the ED. She has a previous history of 3 c-sections. She was previously evaluated for a supra pubic hernia with Dr Chan but was instructed to lose weight prior to any repair. She states she has had pain at the hernia site on and off for the last year or so. CT Abdomen/Pelvis w/IV Contrast: 1. ?Mechanical small bowel obstruction secondary to herniation of a short segment of small bowel into a midline ventral hernia just above the pubic symphysis. ? 2. ?Left ovarian dermoid tumor with maximum diameter of 5.4 cm. ?Slight increase in size since 08/12/2017. ? 3. ?Small 3 cm right ovarian cyst. 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 - ORAL SURGERY PROCEDURE teeth removed - PAST SURGICAL HISTORY OF TM tubes - REMOVAL OF TONSILS,<12 Y/O Tonsillectomy - TUBAL LIGATION FAMILY HISTORY Problem Relation Age of Onset - Diabetes Father - Hypertension Mother - Cancer Mother liver cancer - other (osteoarthritis) Mother - Heart Maternal Grandmother - Cancer Maternal Grandmother - Diabetes Paternal Grandfather - Prostate Cancer Paternal Grandfather - Stroke Paternal Grandmother - Heart Sister hole in heart - Breast Cancer Sister - other (osteochondroma) Son - other (osteochondroma) Son - Emphysema Maternal Aunt - COPD Maternal Aunt Social History Substance Use Topics - Smoking status: Current Some Day Smoker Packs/day: 0.50 Years: 15.00 Types: Cigarettes Start date: 1994 - Smokeless tobacco: Never Used - Alcohol use No Comment: rare wine cooler- not while (Not in a hospital admission) ALLERGIES Allergen Reactions - Seasonal Allergies Intolerance - Penicillins Rash, Vomiting JUST SENSITIVITY TO PCN PER DR FAJARDO COMPLETE REVIEW OF SYSTEMS: as per HPI Objective PHYSICAL EXAM: Physical Exam Performed: GENERAL: Alert, no distress, cooperative EYES: EOMI NECK: Supple LUNGS: Unlabored breathing on RA CARDIAC: Rhythm: regular rate and rhythm ABDOMEN: morbidly obese abdomen, TTP over suprapubic hernia site, reduced at bedside, no skin changes, no peritoneal signs, no guarding EXTREMITIES: VALVERDE BP 130/94 Pulse 67 Temp (Src) 97.3 (Oral) Resp 16 Ht 5' 1 (1.55m) Wt 288 lb (130.6kg) SpO2 90% LMP 10/19/2018 BMI 54.45 kg/(m2). DATA: Diagnostic tests reviewed for today's visit: Most recent labs and imaging results. CBC, Coags, BMP, Mg, Phos Recent Labs 11/07/181924 WBC 13.46* HB 12.8 HCT 41.7 PLT 238 NA 137 K 3.9 CHLOR 98 CO2 34* BUN 12 CREAT 0.63 GLUC 103* CA 8.5 Liver Function, Amylase, AND Lipase Recent Labs 11/07/18 1930 11/07/181924 TPROT -- 6.8 ALB -- 2.9* ALT -- 25 AST -- 15 ALKPHOS -- 55 TBILI -- 0.3 LIPASE -- 98 LACT 1.2 -- Assessment/Plan 38 Year female with SBO 2/2 to herniation of a short segment of small bowel into a midline ventral hernia just above the pubic symphysis, left ovarian dermoid tumor with maximum diameter of 5.4 cm, small right ovarian cyst - NPO/IVF, possibly advance to CLD in am - AM labs - Hernia reduced at bedside, will evaluate in am if surgical intervention at this admission vs follow up with her surgeon - NG if patient becomes nauseas and vomits - Pain control - Will need follow up with OB for ovarian masses Discussed with Dr. Samir MD Emergency General Surgery Service Pager: For questions or concerns Mon-Fri 6a-5p please page [phone]. After 5pm and on Weekends and Holidays, please page [phone] if in ICU or [phone] if on RNF. SIGNATURE: Magda Wilde MD PATIENT NAME: Yobany Starkey Holiday DATE: November 08, 2018 TIME: 12:41 AM PAGER/CONTACT #: [phone] ED NOTE Observed: 11/07/2018 Status: COMPLETED Source: [facility] 10:42 PM CLINIC OTHER CAMPUS REPOSITORY HNO ID: [id number] Author: Susanna (Rn) TONY Christianson Service: Emergency Medicine Author Type: Registered Nurse Type: ED Notes Filed: 11/07/2018 10:42 PM Note Text: Per Dr. Martin, pt is NPO CT ABDOMEN AND PELVIS Observed: 11/07/2018 Status: F Source: [facility] WITH CONTRAST 9:34 PM HEALTH SYSTEM REPOSITORY Performed at [facility] APPROVED BY: VIKY LÓPEZ MD EXAMINATION: CT ABDOMEN AND PELVIS WITH IV CONTRAST CLINICAL HISTORY: SBO intermittent or low-grade suspected TECHNIQUE: Routine helical scanning of the abdomen and pelvis with IV contrast. Contrast: IV: 150 ml Omnipaque 300 Oral: None. CT Radiation dose: Integrated Dose-length product (DLP) for this visit = 1336 mGy*cm. CT Dose Reduction Employed: Automated exposure control. COMPARISON: 08/12/2017 CT of abdomen and pelvis RESULT: Lower chest: Partially calcified mass in the lateral left lung base is stable. Associated deformity of the adjacent left eighth rib is also unchanged. Peritoneum/mesentery: There is no free intraperitoneal air or significant free fluid. Liver: Hepatomegaly with maximum craniocaudal measurement of at least 21 cm. No focal mass. Biliary: Normal. Spleen: Normal. Pancreas: Normal. Kidneys/urinary: Normal. Adrenals: Normal. GI tract: There are a few loops of dilated small bowel in the lower abdomen and pelvis with associated air-fluid levels consistent with mechanical small bowel obstruction. The bowel obstruction is seco ndary to herniation of a short segment of small bowel into a midline ventral hernia just above the pubic symphysis. Mild colonic diverticulosis. Appendix not visualized. Lymph nodes: Negative. Vasculature: Within normal limits. Pelvis: Left adnexal known dermoid tumor currently measures 5.4 x 4.3 x 4.3 cm. This is compared with previous dimensions of 4.7 x 4.3 x 3.8 cm. Right adnexal 3 cm cystic mass also noted. No pelvic f luid collections or adenopathy. Bones/soft tissue: Within normal limits. IMPRESSION: 1. Mechanical small bowel obstruction secondary to herniation of a short segment of small bowel into a midline ventral hernia just above the pubic symphysis. 2. Left ovarian dermoid tumor with maximum diameter of 5.4 cm. Slight increase in size since 08/12/2017. 3. Small 3 cm right ovarian cyst. ED NOTE Observed: 11/07/2018 Status: COMPLETED Source: [facility] 9:32 PM CLINIC OTHER CAMPUS REPOSITORY HNO ID: [id number] Author: Susanna (Rn) TONY Christianson Service: Emergency Medicine Author Type: Registered Nurse Type: ED Notes Filed: 11/07/2018 9:33 PM Note Text: Patient transported to CT ED NOTE Observed: 11/07/2018 Status: COMPLETED Source: [facility] 8:39 PM CLINIC OTHER CAMPUS REPOSITORY HNO ID: [id number] Author: Cheyanne (Rn) TONY Mcknight Service: Nursing Author Type: Registered Nurse Type: ED Notes Filed: 11/07/2018 8:40 PM Note Text: ED CT called for orders ED PROV NOTE Observed: 11/07/2018 Status: COMPLETED Source: [facility] 8:13 PM [facility] REPOSITORY HNO ID: [id number] Author: Jorge Man MD Service: Emergency Medicine Author Type: Physician Type: ED Provider Notes Filed: 11/08/2018 2:36 PM Note Text: Attending Note I evaluated the patient and personally participated in the thao components. I agree with the resident's findings and plan as documented and have discussed the case and management of the patient's care with the resident. PE: Patient is nontoxic appearing found trying to get back into bed. Patient is awake and alert. Speech is normal. Skin is warm and dry. Heart is regular rate rhythm. Lungs are clear and equal. Abdomen is soft and nondistended. I do not palpate any definite hernias. She has mild tenderness to palpation in the periumbilical region. No peritoneal signs. Patient states she has a history of hernias that do cause her pain. States earlier today she had episode where she had multiple episodes of emesis and then had increased pain. States right now her pain is doing a little bit better but still asking for pain medication. States that she has been having bowel movements. No urinary complaints. Signature: Jorge Man MD Date: 11/07/2018 Time: 8:13 PM Jorge Man MD 11/08/18 1436 URINE HCG, QUAL. Collected: 11/07/2018 Status: F Source: [facility] 7:45 PM HEALTH SYSTEM REPOSITORY TYPE CODE TESTS RESULT OUT OF REFERENCE UNITS RANGE LAB URHCG(LOIN Negative C) HCG, Qual. Negative Urine LAB SPGR(LOINC 1.005-1.030 ) Specific 1.030 Mauk, Ur Performed By: #### HCGUR #### [facility] [address] [place], [place] [address] URINALYSIS ROUTINE Collected: 11/07/2018 Status: F Source: [facility] 7:45 PM [facility] REPOSITORY TYPE CODE TESTS RESULT OUT OF RANGE REFERENCE UNITS LAB COLOR(LOIN C) Urine Color YELLOW LAB APPUR(LOIN C) Urine Appearance 1+ (HAZY) LAB GLUUR(LOIN Negative mg/dL C) Glucose Urine NEGATIVE LAB KETON(LOIN Negative mg/dL C) Abnormal Ketone Urine TRACE LAB HGBUR(LOIN Negative C) Hemoglobin,Urin NEGATIVE e LAB PROTU(LOIN Negative mg/dL C) Protein Urine NEGATIVE LAB NITRI(LOIN Negative C) Nitrites Urine NEGATIVE LAB BILIU(LOIN Negative C) Abnormal Bilirubin Urine see below Result Comment: Detected (Unable to confirm). LAB SPG(LOINC) 1.005-1.030 Specific >=1.030 [place], Ur LAB PHUR(LOINC) 5.0-8.0 pH,Urine 6.5 LAB UROBI(LOINC) 0.0-1.0 EU/dL Urobilinogen,Ur 1.0 LAB LEUKO(LOINC) Negative Leukocytes NEGATIVE Esterase LAB RBCU1(LOINC) 0.0-5.0 /hpf RBC,Urine 0.0-3 LAB WBCU1(LOINC) 0.0-5.0 /hpf WBC, Urine 0.0-2 LAB EPIT1(LOINC) 0.0-5.0 /hpf Ep Cells Urine 0.0-2 LAB BACT1(LOINC) None Bacteria Urine NONE LAB MUCUS(LOINC) None Mucus Abnormal Threads FEW LAB HYCA1(LOINC) 0.0-1.0 /lpf Hyaline Cast NONE Performed By: #### URIN2 #### [facility] [address] [place], [place] [address] ED NOTE Observed: 11/07/2018 Status: COMPLETED Source: [facility] 7:43 PM CLINIC OTHER CAMPUS REPOSITORY HNO ID: [id number] Author: Cheyanne (Rn) Menc, RN Service: Nursing Author Type: Registered Nurse Type: ED Notes Filed: 11/07/2018 7:43 PM Note Text: Pt assisted in to the bathroom at this time LACTIC ACID Collected: 11/07/2018 Status: F Source: [facility] 7:30 PM HEALTH SYSTEM REPOSITORY TYPE CODE TESTS RESULT OUT OF REFERENCE UNITS RANGE LAB EDLAC(LOINC 0.5-2.2 mEq/L ) Lactic Acid 1.2 Performed By: #### EDLAG #### [facility] [address] [place] [address] HEMOGRAM/DIFF Collected: 11/07/2018 Status: F Source: [facility] 7:25 PM HEALTH SYSTEM REPOSITORY TYPE CODE TESTS RESULT OUT OF REFERENCE UNITS RANGE LAB WBC(LOINC) 3.98-10.04 thou/cmm WBC High 13.46 LAB RBC(LOINC) 3.93-5.22 mil/cmm RBC 4.53 LAB HGB(LOINC) 11.2-15.7 g/dL Hgb 12.8 LAB HCT(LOINC) 34.1-44.9 % Hct 41.7 LAB MCV(LOINC) 79.4-94.8 fl MCV 92.1 LAB MCH(LOINC) 25.6-32.2 pg MCH 28.3 LAB MCHC(LOINC 31.6-34.8 % ) Low MCHC 30.7 LAB RDW(LOINC) 11.7-14.4 % RDW 14.2 LAB RDWSD(LOIN 36.4-46.3 fl C) RDW SD High 48.2 LAB PLT(LOINC) 182-369 thou/cmm Platelet 238 LAB MPV(LOINC) 9.4-12.3 fl MPV 11.4 LAB SEG(LOINC) % Seg Neutrophil 69.1 LAB IGRE(LOINC % ) Immature Grans 0.70 LAB LYMPH(LOIN % C) Lymphocyte 22.6 LAB MNO(LOINC) % Monocyte 7.1 LAB EOSIN(LOIN % C) Eosinophil 0.1 LAB BASO(LOINC % ) Basophil 0.4 LAB SEGN(LOINC 1.56-6.13 thou/cmm ) Abs. High Neut (ANC) 9.30 LAB IGAB(LOINC 0.00-0.05 thou/cmm ) Abs High Immature Grans 0.09 LAB LYMN(LOINC 1.18-3.74 thou/cmm ) Abs. Lymph 3.04 LAB MONON(LOIN 0.27-0.70 thou/cmm C) Abs. High Calloway 0.96 LAB EOSN(LOINC 0.00-0.31 thou/cmm ) Abs. Eosin 0.01 LAB BASON(LOIN 0.01-0.08 thou/cmm C) Abs. Baso 0.05 Performed By: #### [id number] #### [facility] [address] [place] [address] COMPREHENSIVE PANEL Collected: 11/07/2018 Status: F Source: [address] [facility] REPOSITORY TYPE CODE TESTS RESULT OUT OF REFERENCE UNITS RANGE LAB NA(LOINC) 136-145 mEq/L Sodium Blood 137 LAB K(LOINC) 3.5-5.1 mEq/L Potassium Blood 3.9 LAB CL(LOINC) 98-107 mEq/L Chloride Blood 98 LAB CO2(LOINC) 21-32 mEq/L CO2 Blood High 34 LAB GLU(LOINC) 70-99 mg/dL Glucose High Blood 103 LAB BUN(LOINC) 7-18 mg/dL BUN Blood 12 LAB CREA(LOINC 0.51-0.95 mg/dL ) Creatinine Blood 0.63 LAB CA(LOINC) 8.5-10.1 mg/dL Calcium Blood 8.5 LAB ALB(LOINC) 3.4-5.0 g/dL Low Albumin Blood 2.9 LAB TP(LOINC) 6.4-8.2 g/dL Total Protein 6.8 LAB AST(LOINC) 9-37 U/L AST-SGOT Blood 15 LAB ALT(LOINC) 12-78 U/L ALT-SGPT Blood 25 LAB ALKP(LOINC 46-116 U/L ) Alk Phosphatase 55 LAB BILIT(LOIN 0.2-1.0 mg/dL C) Total Bilirubin 0.3 LAB ANGAP(LOIN 8-16 C) Anion Gap 9 Performed By: #### P14 #### [facility] [address] [place], [place] [address] LIPASE BLOOD Collected: 11/07/2018 Status: F Source: [facility] 7:25 PM [facility] REPOSITORY TYPE CODE TESTS RESULT OUT OF REFERENCE UNITS RANGE LAB LIP(LOINC) 73-393 U/L Lipase Blood 98 Performed By: #### LIP #### [facility] [address] [place], [place] [address] ED PROV NOTE Observed: 11/07/2018 Status: COMPLETED Source: [facility] 7:04 PM CLINIC OTHER CAMPUS REPOSITORY HNO ID: [id number] Author: Jorge Man MD Service: Emergency Medicine Author Type: Physician Type: ED Provider Notes Filed: 11/08/2018 2:36 PM Note Text: ED Provider Note Patient Name: Yobany Londono SERVICE DATE: 11/07/18 History Patient presents with: Abdominal Pain: pt presents to ED today after vomiting until she was purple pt states she has just been getting over a sinal infection; pt complains of mid abdominal pain pt denies diarrhea. The patient is an obese 38 year old female with a significant past medical history of prior abdominal surgeries, ventral hernia, hiatal hernia, small bowel obstruction on 10/02/2018, COPD, and hypertension, who presents to the ED for evaluation of periumbilical abdominal pain for the past day. The patient describes the pain as severe. Associated symptoms include nausea with 3 episodes of nonbloody emesis and decreased appetite. The patient's symptoms are made worse with food consumption. The patient had a bowel movement while in the ED prior to my evaluation. The patient tried some of her son's Zofran without improvement of her symptoms. She is concerned that she could have another small bowel obstruction. The patient denies fever, chest pain, dyspnea, diarrhea, constipation, melena, hematochezia, UTI symptoms, hematuria, alcohol/NSAID abuse, sick contacts, or additional complaints. 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 - ORAL SURGERY PROCEDURE teeth removed - PAST SURGICAL HISTORY OF TM tubes - REMOVAL OF TONSILS,<12 Y/O Tonsillectomy - TUBAL LIGATION FAMILY HISTORY Problem Relation Age of Onset - Diabetes Father - Hypertension Mother - Cancer Mother liver cancer - other (osteoarthritis) Mother - Heart Maternal Grandmother - Cancer Maternal Grandmother - Diabetes Paternal Grandfather - Prostate Cancer Paternal Grandfather - Stroke Paternal Grandmother - Heart Sister hole in heart - Breast Cancer Sister - other (osteochondroma) Son - other (osteochondroma) Son - Emphysema Maternal Aunt - COPD Maternal Aunt Social History Social History Main Topics - Smoking status: Current Some Day Smoker Packs/day: 0.50 Years: 15.00 Types: Cigarettes Start date: 1994 - Smokeless tobacco: Never Used - Alcohol use No Comment: rare wine cooler- not while - Drug use: No - Sexual activity: Yes Partners: Male control/ protection: None, Tubal Ligation ALLERGIES Allergen Reactions - Seasonal Allergies Intolerance - Penicillins Rash, Vomiting JUST SENSITIVITY TO PCN PER DR FAJARDO Review of Systems Constitutional: Positive for appetite change. Negative for chills and fever. Respiratory: Positive for cough. Negative for shortness of breath. Cardiovascular: Negative for chest pain. Gastrointestinal: Positive for abdominal distention, abdominal pain, nausea and vomiting. Negative for blood in stool, constipation and diarrhea. Genitourinary: Negative for dysuria, flank pain, frequency and urgency. Musculoskeletal: Negative for neck pain and neck stiffness. Skin: Negative for rash and wound. Neurological: Negative for dizziness, weakness, light-headedness, numbness and headaches. Physical Exam BP 130/94 Pulse 72 Temp (Src) 97.3 (Oral) Resp 18 Ht 5' 1 (1.55m) Wt 288 lb (130.6kg) SpO2 95% LMP 10/19/2018 BMI 54.45 kg/(m2). Physical Exam Constitutional: She is oriented to person, place, and time. She appears well-developed and well-nourished. No distress. HENT: Head: Normocephalic and atraumatic. Right Ear: External ear normal. Left Ear: External ear normal. Eyes: Pupils are equal, round, and reactive to light. Neck: Normal range of motion. Cardiovascular: Normal rate, regular rhythm and normal heart sounds. Pulmonary/Chest: Effort normal and breath sounds normal. No respiratory distress. She has no wheezes. She has no rales. Abdominal: Soft. Bowel sounds are normal. She exhibits distension (minimally). There is tenderness (Periumbilical). There is no guarding. No hernia. Obese Musculoskeletal: Normal range of motion. She exhibits no edema. Neurological: She is alert and oriented to person, place, and time. No cranial nerve deficit. Skin: Skin is warm and dry. Nursing note and vitals reviewed. Diagnostic Testing Results for orders placed or performed during the hospital encounter of 11/07/18 CT ABD/PEL W IVCON Result Value Ref Range Oil Sprayer EXAMINATION: CT ABDOMEN AND PELVIS WITH IV CONTRAST CLINICAL HISTORY: SBO intermittent or low-grade suspected TECHNIQUE: Routine helical scanning of the abdomen and pelvis with IV contrast. Contrast: IV: 150 ml Omnipaque 300 Oral: None. CT Radiation dose: Integrated Dose-length product (DLP) for this visit = 1336 mGy*cm. CT Dose Reduction Employed: Automated exposure control. COMPARISON: 08/12/2017 CT of abdomen and pelvis RESULT: Lower chest: Partially calcified mass in the lateral left lung base is stable. Associated deformity of the adjacent left eighth rib is also unchanged. Peritoneum/mesentery: There is no free intraperitoneal air or significant free fluid. Liver: Hepatomegaly with maximum craniocaudal measurement of at least 21 cm. No focal mass. Biliary: Normal. Spleen: Normal. Pancreas: Normal. Kidneys/urinary: Normal. Adrenals: Normal. GI tract: There are a few loops of dilated small bowel in the lowe r abdomen and pelvis with associated air-fluid levels consistent with mechanical small bowel obstruction. The bowel obstruction is secondary to herniation of a short segment of small bowel into a midline ventral hernia just above the pubic symphysis. Mild colonic diverticulosis. Appendix not visualized. Lymph nodes: Negative. Vasculature: Within normal limits. Pelvis: Left adnexal known dermoid tumor currently measures 5.4 x 4.3 x 4.3 cm. This is compared with previous dimensions of 4.7 x 4.3 x 3.8 cm. Right adnexal 3 cm cystic mass also noted. No pelvic fluid collections or adenopathy. Bones/soft tissue: Within normal limits. IMPRESSION: 1. Mechanical small bowel obstruction secondary to herniation of a short segment of small bowel into a midline ventral hernia just above the pubic symphysis. 2. Left ovarian dermoid tumor with maximum diameter of 5.4 cm. Slight increase in size since 08/12/2017. 3. Small 3 cm right ovar andrew cyst. HCG QUALITATIVE URINE (AK,AV,EU,FV,HL,PHUONG,MM,SP) Result Value Ref Range HCG Qualitative, Urine Negative Negative Specific [place], Ur 1.030 1.005 - 1.030 URINALYSIS WITH MICROSCOPIC (AK,AV,EU,FV,HL,PHUONG,MM,SP) Result Value Ref Range Color YELLOW Urine Appearance 1+ (HAZY) Glucose, Urine NEGATIVE Negative mg/dL Ketones, Urine TRACE (A) Negative mg/dL Hemoglobin, Urine NEGATIVE Negative Protein, Urine NEGATIVE Negative mg/dL Nitrites Urine NEGATIVE Negative Bilirubin, Urine see below (A) Negative Specific [place], Ur >=1.030 1.005 - 1.030 pH, Urine 6.5 5.0 - 8.0 Urobilinogen, Urine 1.0 0.0 - 1.0 EU/dL Leukocytes Esterase NEGATIVE Negative RBC, Urine 0.0-3 0.0 - 5.0 /hpf WBC, Urine 0.0-2 0.0 - 5.0 /hpf EP Cells Urine 0.0-2 0.0 - 5.0 /hpf Bacteria, Urine NONE None Mucus Threads FEW (A) None Hyaline Cast NONE 0.0 - 1.0 /lpf COMPREHENSIVE METABOLIC PANEL (AK,AV,EU,FV,HL,PHUONG,MM,SP) Result Value Ref Range Sodium 137 136 - 145 mEq/L Potassium 3.9 3.5 - 5.1 mEq/L Chloride 98 98 - 107 mEq/L CO2 34 (H) 21 - 32 mEq/L Glucose 103 (H) 70 - 99 mg/dL BUN 12 7 - 18 mg/dL Creatinine 0.63 0.51 - 0.95 mg/dL Calcium 8.5 8.5 - 10.1 mg/dL Albumin 2.9 (L) 3.4 - 5.0 g/dL Protein, Total 6.8 6.4 - 8.2 g/dL AST 15 9 - 37 U/L ALT 25 12 - 78 U/L Alkaline Phosphatase 55 46 - 116 U/L Bilirubin, Total 0.3 0.2 - 1.0 mg/dL Anion Gap 9 8 - 16 CBC + AUTO DIFF (AK,AV,EU,FV,HL,PHUONG,MM,SP) Result Value Ref Range WBC 13.46 (H) 3.98 - 10.04 thou/cmm RBC 4.53 3.93 - 5.22 mil/cmm HGB 12.8 11.2 - 15.7 g/dL Hematocrit 41.7 34.1 - 44.9 % MCV 92.1 79.4 - 94.8 fl MCH 28.3 25.6 - 32.2 pg MCHC 30.7 (L) 31.6 - 34.8 % RDW 14.2 11.7 - 14.4 % RDW-SD 48.2 (H) 36.4 - 46.3 fl Platelet Count 238 182 - 369 thou/cmm MPV 11.4 9.4 - 12.3 fl Seg Neutrophil 69.1 % Immature Grans 0.70 % Lymphocyte 22.6 % Monocyte 7.1 % Eosinophil 0.1 % Basophil 0.4 % Abs. Neut(Anc) 9.30 (H) 1.56 - 6.13 thou/cmm Immature Grans # 0.09 (H) 0.00 - 0.05 thou/cmm Abs. Lymph 3.04 1.18 - 3.74 thou/cmm Abs. Calloway 0.96 (H) 0.27 - 0.70 thou/cmm Abs. Eosin 0.01 0.00 - 0.31 thou/cmm Abs. Baso 0.05 0.01 - 0.08 thou/cmm LIPASE BLOOD (AK,AV,EU,FV,HL,PHUONG,MM,SP) Result Value Ref Range Lipase 98 73 - 393 U/L LACTIC ACID,POC(AK) Result Value Ref Range Lactate (POCT) 1.2 0.5 - 2.2 mEq/L MDRD GFR Result Value Ref Range eGFR >60 >60mL/min/1.73m2 Procedures ED Course / Clinical Impression Clinical Impressions as of Nov 08 1435 SBO (small bowel obstruction) (HCC) Ventral hernia with obstruction and without gangrene MDM / Disposition / Plan The patient is an obese 38 year old female with a significant past medical history of prior abdominal surgeries, ventral hernia, hiatal hernia, small bowel obstruction on 10/02/2018, COPD, and hypertension, who presents to the ED for evaluation of periumbilical abdominal pain for the past day. The patient was evaluated by myself and the attending physician. The patient is hemodynamically stable. The patient appears to be uncomfortable but nontoxic. Physical exam demonstrates pain to palpation in the periumbilical region. The patient's symptoms are concerning for small bowel obstruction versus infectious process. The patient was initially given a liter of lactated Ringer's, Zofran, and morphine. CBC was negative for an acute leukocytosis or anemia. CMP shows normal kidney function without electrolyte abnormalities or transaminitis. Lipase was within normal limits. Lactic acid was within normal limits. Urinalysis was negative for gross hematuria or infection. Remaining labs were noncontributory. CT scan shows a mechanical small bowel obstruction secondary to a herniated small segment of small bowel into a midline ventral hernia. The patient was informed of these findings. Upon reevaluation, the patient required additional analgesia, and she was made nothing by mouth and started on maintenance fluids. Surgery was consulted. The patient was signed out to Dr. Roche pending surgical evaluation and disposition. SIGNATURE: MD Baljit Woodruff (Res) MD Mario Resident 11/08/18 0121 Attending Note I evaluated the patient and personally participated in the thao components. I agree with the resident's findings and plan as documented and have discussed the case and management of the patient's care with the resident. Please see separate attending note. Signature: Jorge Man MD Date: 11/08/2018 Time: 2:36 PM Jorge Man MD 11/08/18 1436 ED TRIAGE NOTE Observed: 11/07/2018 Status: COMPLETED Source: [facility] 6:47 PM CLINIC OTHER CAMPUS REPOSITORY O ID: [id number] Author: ANTOINE Ivan (Pa) Service: Emergency Medicine Author Type: Physician Bulk Plant Agent Type: ED Triage Notes Filed: 11/07/2018 6:53 PM Note Text: ED INTAKE NOTE Patient Name: Yobany Londono Service Date: 11/07/18 BRIEF HPI: 38y F c/o puking so much it hurt at about 2:30pm today. Took 6ml of liquid zofran to no avail. Also endorses periumbilical and epigastric pain. Denies watery stools, CP, SOB. BRIEF EXAM: Awake and Alert RRR CTAB INTAKE WORKUP: Bloodwork: CBC CMP lipase Urinalysis Test SIGNATURE: Christine Samuel PA-C HOSP Observed: 11/07/2018 Status: COMPLETED Source: [facility] 12:00 AM CLINIC OTHER CAMPUS REPOSITORY Patient:Yobany Londono MRN: <[id number]> Height:5' 1(1.549 m) Weight:279 lb 15.8 oz (127 kg) Outpatient Medications as of 11/08/18: acetaminophen (TYLENOL) 500 mg tablet albuterol (PROVENTIL) 2.5 mg /3 mL (0.083 %) nebulizer solution albuterol HFA (VENTOLIN HFA) 90 mcg/actuation inhaler azithromycin (ZITHROMAX Z-ABRAHAN) 250 mg tablet B Complex Vitamins capsule Cholecalciferol, Vitamin D3, (VITAMIN D) 1,000 unit cap citalopram (CELEXA) 40 mg tablet dicyclomine (BENTYL) 10 mg capsule fluticasone (FLONASE) 50 mcg/actuation nasal spray guaiFENesin (ROBITUSSIN) 100 mg/5 mL syrup guaiFENesin-dextromethorphan (ROBITUSSIN DM) 100-10 mg/5 mL syrup loratadine (CLARITIN) 10 mg tablet meloxicam (MOBIC) 15 mg tablet methocarbamol (ROBAXIN) 500 mg tablet multivitamin tablet nicotine (NICODERM) 21 mg/24 hr omeprazole (PRILOSEC) 20 mg capsule predniSONE (DELTASONE) 20 mg tablet simethicone, chewable (MYLICON) 80 mg chewable tablet SYMBICORT 160-4.5 mcg/actuation inhaler vitamin b complex (B COMPLETE) tab Admission/Clinic Administered Medications as of 11/08/18: acetaminophen 650 mg tab(s) (TYLENOL) albuterol 2.5 mg /3 mL (0.083 %) 2.5 mg (PROVENTIL) albuterol HFA 90 mcg/actuation 2 Puff (PROVENTIL HFA, VENTOLIN HFA) citalopram 40 mg tab(s) (CeleXA) dicyclomine 20 mg cap(s) (BENTYL) enoxaparin 30 mg injection (LOVENOX) fluticasone-vilanterol 100-25 mcg/dose 1 Inhalation (BREO ELLIPTA) lactated ringers infusion morphine 2 mg injection NaCl 0.9% 2-10 mL ondansetron (PF) 4 mg injection (ZOFRAN) pantoprazole DR 40 mg tab(s) (PROTONIX) traMADol 50 mg tab(s) (ULTRAM) Problem List: Pulpitis [K04.01] Tobacco use disorder [F17.200] Acute bronchitis [J20.9] Chronic airway obstruction, not elsewhere classified [J44.9] Morbid obesity [E66.01] Back pain [M54.9] Osteochondroma, multiple [Q78.6] Asthma [J45.909] Depression with anxiety [F41.8] Asthma exacerbation [J45.901] SOB (shortness of breath) [R06.02] Fibromyalgia [M79.7] History of section [Z98.891] Family history of seizure disorder [Z82.0] Encounter for sterilization [Z30.2] Obesity, Class III, BMI >= 40 E66.01 [E66.01] On home O2 [Z99.81] SBO (small bowel obstruction) (HCC) [K56.609] Incisional hernia with obstruction [K43.0] Allergies: Seasonal Allergies Penicillins Date Verified: 11/08/18 Lab Values Lab Value Units Date High Low POTA* 3.9 mEq/L 11/08/2018 5.1 3.5 ALEM* 43.1 % 11/08/2018 44.9 34.1 Progress Notes (FUNCTIONAL DIRECTOR [facility]): Cece Olivares APRN.BUFFER CHROME 11/06/2018 9:12 AM Signed Yobany Londono is a 38 year old who presents for her annual gynecologic exam without complaints. Pelvic US 09/27/17 - A left ovarian dermoid cyst is noted measuring 52 mm x 28 mm x 37 mm. Pt was to have 6 month follow-up US but did complete testing CT of abdomen [facility] 09/27/18 - Left ovary measured 7.2 x 4.1 cm with 4.2 x 3.2 cm mass with small calcification noted in the inferolateral margin consistent with dermoid tumor. Menses: cycles every every month and 10 days of light to moderate flow. Contraception: tubal ligation HPV vaccine: No Last Pap: 2013 normal HPV: negative History of abnormal pap: No Last mammogram: 2014normal Sexually active: rarely Patient concerns for STD exposure: No. 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 - ORAL SURGERY PROCEDURE teeth removed - PAST SURGICAL HISTORY OF TM tubes - REMOVAL OF TONSILS,<12 Y/O Tonsillectomy - TUBAL LIGATION FAMILY HISTORY Problem Relation Age of Onset - Diabetes Father - Hypertension Mother - Cancer Mother liver cancer - other (osteoarthritis) Mother - Heart Maternal Grandmother - Cancer Maternal Grandmother - Diabetes Paternal Grandfather - Prostate Cancer Paternal Grandfather - Stroke Paternal Grandmother - Heart Sister hole in heart - Breast Cancer Sister - other (osteochondroma) Son - other (osteochondroma) Son - Emphysema Maternal Aunt - COPD Maternal Aunt SOCIAL HISTORY Social History Substance Use Topics - Smoking status: Current Some Day Smoker Packs/day: 0.50 Years: 15.00 Types: Cigarettes Start date: 1994 - Smokeless tobacco: Never Used - Alcohol use No Comment: rare wine cooler- not while REVIEW OF SYSTEMS Abdomen: Consult at [facility] next month for hernia x 2. No nausea, vomiting, diarrhea, or constipation. No bloating, early satiety, indigestion, or increased flatulence. Bladder: No dysuria, gross hematuria, urinary frequency, urinary urgency, or incontinence. Breast: No breast lumps, nipple d/c, overlying skin changes, redness or skin retraction. Allergies and current medication updated:Yes EXAM: Ht 5' 1 (1.55m) Wt 290 lb (131.5kg) LMP 10/19/2018 BMI 54.82 kg/(m2). GENERAL: pleasant, female in no apparent distress HEENT: Normocephalic, atraumatic, mucus membranes moist and no lesions NECK: Supple, full range of motion, no adenopathy and thyroid normal DERMATOLOGY: Normal, without lesions, non-icteric and non-hirsute BREAST: soft, non-tender, symmetric, no dominant mass, normal nipple-areolar complex, no lymphadenopathy and no nipple discharge CHEST: Normal inspiratory effort ABDOMEN: soft and non-tender PELVIC: external genitalia normal, normal Bartholin's glands, urethra, Monango's glands, no vulvar lesions, no cervical lesions, good vaginal support, physiologic discharge present, normal appearing perineal body and perianal region BIMANUAL: non-tender, difficult exam due to body habitus RECTOVAGINAL: deferred. NEURO: alert and oriented x3,exam grossly non-focal EXTREMITIES: normal ASSESSMENT/PLAN: 1) Health maintenance: Pap done with HPV. Mammogram starting age 40. Nutrition, exercise and routine health maintenance exams reviewed. Smoking cessation: Patient encouraged to avoid smoking. 2) Contraception: tubal ligation. Contraceptive options reviewed and information provided. 3) STD screening: Declined STD check. 4. Dermoid cyst of left ovary - ICD9: 220, ICD10: D27.1 Cyst has decreased in size over past year. Will monitor by US in 6 months. - PELVIC US WHI 5) Follow up one year or sooner as needed Cece Olivares APRN.BUFFER CHROME Previous Version Progress Notes ([facility]): Bird Lopez APRN.BUFFER CHROME 11/05/2018 8:34 AM Signed Chief Complaint Patient presents with: Multiple Concerns: URI and muscle spasms LIGIA Londono is a 38 year old female who presents here today for multiple concerns. Pt has been seen at [facility] and [place] [facility] due to muscle spasms and stomach pain. Is getting a second opinion on her incisional hernia. Will be going to a general surgeon in [facility]. URI - Has a sore throat (last 4 days), nasal drainage (last 4 days), cough (persistent the last week) and headache to the point she feels she wants to vomit, but doesn't. Cough is productive. Dark green and thick. No diarrhea. Does have a headache. No fevers, some subjective chills. Other family members are ill. Spasms - Back spasms ongoing for the last months. Notes she used sisters Robaxin which gave her great relief. Was given short term Rx of [place] from ER and gave her great relief. No trauma or injury. Past medical history, appointments, medications, allergies reviewed. 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 - ORAL SURGERY PROCEDURE teeth removed - PAST SURGICAL HISTORY OF TM tubes - REMOVAL OF TONSILS,<12 Y/O Tonsillectomy - TUBAL LIGATION Family History FAMILY HISTORY Problem Relation Age of Onset - Diabetes Father - Hypertension Mother - Cancer Mother liver cancer - other (osteoarthritis) Mother - Heart Maternal Grandmother - Cancer Maternal Grandmother - Diabetes Paternal Grandfather - Prostate Cancer Paternal Grandfather - Stroke Paternal Grandmother - Heart Sister hole in heart - Breast Cancer Sister - other (osteochondroma) Son - other (osteochondroma) Son - Emphysema Maternal Aunt - COPD Maternal Aunt Patient Allergies ALLERGIES Allergen Reactions - Seasonal Allergies Intolerance - Penicillins Rash, Vomiting JUST SENSITIVITY TO PCN PER DR FAJARDO Current Medications Current Outpatient Prescriptions on File Prior to Visit: acetaminophen (TYLENOL) 500 mg tablet EVERY 6 HOURS NEEDED albuterol (PROVENTIL) 2.5 mg /3 mL (0.083 %) nebulizer solution Use 3 mL via nebulizer every 4 hours as needed for Wheezing/Shortness of Breath. Use over 5-15minutes. albuterol HFA (VENTOLIN HFA) 90 mcg/actuation inhaler Inhale 2 Puffs as instructed every 6 hours as needed for Wheezing/Shortness of Breath. B Complex Vitamins capsule TAKE ONE CAPSULE BY MOUTH EVERY DAY Cholecalciferol, Vitamin D3, (VITAMIN D) 1,000 unit cap Take 1,000 Units by mouth once daily. citalopram (CELEXA) 40 mg tablet Take 1 tablet by mouth once daily. COMPOUNDED PRESCRIPTION Home oxygen : 3 Litre per minute with exercise and at hours of sleep via nasal canula with conserving device Associated diagnosis : COPD dicyclomine (BENTYL) 10 mg capsule Take 2 capsules by mouth three times daily as needed. fluticasone (FLONASE) 50 mcg/actuation nasal spray Use 2 Sprays in each nostril once daily. Rinse mouth after use. guaiFENesin (ROBITUSSIN) 100 mg/5 mL syrup Take 10 mL by mouth four times daily as needed for Cough. guaiFENesin-dextromethorphan (ROBITUSSIN DM) 100-10 mg/5 mL syrup Take 10 mL by mouth every 6 hours as needed for Cough. lidocaine (LIDODERM) 5 % Apply 1 Patch as directed every 24 hours. loratadine (CLARITIN) 10 mg tablet Take 1 tablet by mouth once daily as needed. FOR ALLERGY SYMPTOMS meloxicam (MOBIC) 15 mg tablet TAKE ONE TABLET BY MOUTH ONCE DAILY WITH FOOD multivitamin tablet Take 1 tablet by mouth once daily. nicotine (NICODERM) 21 mg/24 hr Apply 1 Patch as directed every 24 hours. omeprazole (PRILOSEC) 20 mg capsule Take 1 capsule by mouth twice daily before meals. 1/2 hr before meal. simethicone, chewable (MYLICON) 80 mg chewable tablet Take 1 tablet by mouth every 6 hours as needed. SYMBICORT 160-4.5 mcg/actuation inhaler Inhale 2 Puffs into the lungs as instructed twice daily. vitamin b complex (B COMPLETE) tab Take 1 tablet by mouth once daily. No current facility-administered medications on file prior to visit. Social History Social History Marital status: Spouse name: Years of education: Number of children: Occupational History Occupation Employer Comment unemployed, disabi* Social History Main Topics Smoking status: Current Some Day Smoker Packs/day: 0.50 Years: 15.00 Types: Cigarettes Start date: 1994 Smokeless tobacco: Never Used Alcohol use: No Comment: rare wine cooler- not while Drug use: No Sexual activity: Yes Partners with: Male control/protection: None Social History Narrative Mother 2011. Father needs her help. 2 sons. EXAM: BP 116/72 (BP Site: Left Arm, BP Position: Sitting, BP Cuff Size: Large Adult) Pulse 84 Temp 36.9 ?C (98.4 ?F) (Tympanic) Resp 16 Wt 131 kg (288 lb 12.8 oz) LMP 10/19/2018 (Exact Date) BMI 54.57 kg/m? General Appearance: Well appearing, alert, in no acute distress, well-hydrated, well nourished. and Morbidly obese. Head: Normocephalic, no masses, lesions, tenderness or abnormalities. Eyes: Anicteric sclera. Pupils are equally round and reactive to light. Extraocular movements are intact. . Ears: External ears normal, canals clear. Nose/Sinuses: Positive findings: mucosa erythematous and swollen. Positive for maxillary sinus tenderness. Oropharynx: Lips, mucosa, and tongue normal, teeth and gums normal, oropharynx normal. Neck: Supple, no adenopathy; thyroid symmetric, normal size. Back:good flexion and extension, good range of motion, reflexes are 2+ and symmetric, motor and sensory appear to be normal Lungs: positive findings: wheezing cough. Heart: RRR without murmur, gallop, or rubs. No ectopy. Health Maintenance List PAP EVERY 5 YEARS due on 02/06/2018 HPV EVERY 5 YEARS due on 02/06/2018 STEROID INHALER PRESCRIBED due on 11/18/2018 STEROID INHALER ADHERENCE due on 11/18/2018 ANNUAL PCP TEAM CHRONIC DISEASE VISIT due on 09/05/2019 DTAP,TDAP,TD(6 - Td) due on 05/23/2026 ONE PNEUMOVAX PRIOR TO AGE 65 Completed INFLUENZA Completed Data reviewed ER Records ASSESSMENT/PLAN: 1. Sinobronchitis - ICD9: 473.9, 490, ICD10: J32.9, J40 (primary diagnosis) - Will begin treatment with as per antibiotic as written, see orders - The patient should also be given OTC decongestants prn and OTC cough and cold meds as needed for the first 5-7 days of treatment. - Supportive care with plenty of fluids, rest, and analgesia prn. - AZITHROMYCIN 250 MG TABLET - PREDNISONE 20 MG TABLET 2. Muscle spasm - ICD9: 728.85, ICD10: M62.838 - METHOCARBAMOL 500 MG TABLET 3. Abdominal cramping - ICD9: 789.00, ICD10: R10.9 - DICYCLOMINE 10 MG CAPSULE Follow up as needed. I agree with the Chief Complaint, ROS, and Past Histories independently gathered by the clinical it technical support specialist and the remaining scribed note accurately describes my personal service to the patient. Bird Lopez APRN.BUFFER CHROME The documentation for this note was completed by Shanti Bull Ma acting as scribe for Bird Lopez APRN.CNP. November 05, 2018 8:06 AM. . Previous Version CYTOLOGY Observed: 11/06/2018 Status: C Source: [place] 8:47 AM [facility] REPOSITORY ADDITIONAL PROCEDURES PRESENT Specimen originated from [facility] Specimen #: [id number] Submitting Physician: CECE OLIVARES CNP SPECIMEN SUBMITTED A: CERVICAL, SCREENING, FLUID FINAL DIAGNOSIS A. CERVICAL, SCREENING, FLUID Satisfactory for interpretation. Negative for intraepithelial lesion or malignancy. This specimen has been analyzed by the ThinPrep Imaging System, an automated imaging and review system, which assists the laboratory in evaluating cells on ThinPrep Pap tests. Following automated imaging, selected carballo from every slide are reviewed by a lead section supervisor. MENDEZ Buck(ASCP) (Electronic Signature) ADDITIONAL PROCEDURE(S) HUMAN PAPILLOMA VIRUS Date Ordered: 11/07/2018 Date Reported: 11/09/2018 Procedure Results and Interpretation Negative for HPV DNA high risk type 16 by PCR. Negative for HPV DNA high risk type 18 by PCR. Negative for HPV DNA high risk types: 31,33,35,39,45,51,52,56,58,59,66,68 by PCR. This test was developed and its performance characteristics determined by [facility]'s [facility] [place] ([facility] It has not been cleared or approved by the FDA. [facility] is regulated under CLIA as qualified to perform high-complexity testing. This test is used for clinical purposes. It should not be regarded as investigational or for research. CLINICAL DATA ROUTINE EXAM, HPV Testing: Yes, automatic HPV patients over 30 Date of Last Menstrual Period: 10/19/2018 STAINS A: CERVICAL, SCREENING, FLUID THIN PREP GEOLOGICAL ENGINEER Liliam Kate M.D., Information Broker Date of Report: 11/13/2018 Date of Procedure: 11/06/2018 Date of Receipt: 11/07/2018 Submitted by: CECE OLIVARES CNP Location: [facility] Diagnostic interpretation performed at [facility], [address] [place] [address]. The Pap Smear is a screening test for cervical cancer. False negative results occur with all screening tests, emphasizing the need for rescreening at recommended intervals, and clinical correlation. PROGRESS Observed: 11/06/2018 Status: COMPLETED Source: [place] 8:19 AM [facility] REPOSITORY HNO ID: [id number] Author: Cece Olivares Service: (none) Author Type: Nurse Practitioner Type: Progress Notes Filed: 11/06/2018 9:12 AM Note Text: Yobany Londono is a 38 year old who presents for her annual gynecologic exam without complaints. Pelvic US 09/27/17 - A left ovarian dermoid cyst is noted measuring 52 mm x 28 mm x 37 mm. Pt was to have 6 month follow-up US but did complete testing CT of abdomen [facility] 09/27/18 - Left ovary measured 7.2 x 4.1 cm with 4.2 x 3.2 cm mass with small calcification noted in the inferolateral margin consistent with dermoid tumor. Menses: cycles every every month and 10 days of light to moderate flow. Contraception: tubal ligation HPV vaccine: No Last Pap: 2012 normal HPV: negative History of abnormal pap: No Last mammogram: 2014normal Sexually active: rarely Patient concerns for STD exposure: No. 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 - ORAL SURGERY PROCEDURE teeth removed - PAST SURGICAL HISTORY OF TM tubes - REMOVAL OF TONSILS,<12 Y/O Tonsillectomy - TUBAL LIGATION FAMILY HISTORY Problem Relation Age of Onset - Diabetes Father - Hypertension Mother - Cancer Mother liver cancer - other (osteoarthritis) Mother - Heart Maternal Grandmother - Cancer Maternal Grandmother - Diabetes Paternal Grandfather - Prostate Cancer Paternal Grandfather - Stroke Paternal Grandmother - Heart Sister hole in heart - Breast Cancer Sister - other (osteochondroma) Son - other (osteochondroma) Son - Emphysema Maternal Aunt - COPD Maternal Aunt SOCIAL HISTORY Social History Substance Use Topics - Smoking status: Current Some Day Smoker Packs/day: 0.50 Years: 15.00 Types: Cigarettes Start date: 1994 - Smokeless tobacco: Never Used - Alcohol use No Comment: rare wine cooler- not while REVIEW OF SYSTEMS Abdomen: Consult at [facility] next month for hernia x 2. No nausea, vomiting, diarrhea, or constipation. No bloating, early satiety, indigestion, or increased flatulence. Bladder: No dysuria, gross hematuria, urinary frequency, urinary urgency, or incontinence. Breast: No breast lumps, nipple d/c, overlying skin changes, redness or skin retraction. Allergies and current medication updated:Yes EXAM: Ht 5' 1 (1.55m) Wt 290 lb (131.5kg) LMP 10/19/2018 BMI 54.82 kg/(m2). GENERAL: pleasant, female in no apparent distress HEENT: Normocephalic, atraumatic, mucus membranes moist and no lesions NECK: Supple, full range of motion, no adenopathy and thyroid normal DERMATOLOGY: Normal, without lesions, non-icteric and non-hirsute BREAST: soft, non-tender, symmetric, no dominant mass, normal nipple-areolar complex, no lymphadenopathy and no nipple discharge CHEST: Normal inspiratory effort ABDOMEN: soft and non-tender PELVIC: external genitalia normal, normal Bartholin's glands, urethra, Monango's glands, no vulvar lesions, no cervical lesions, good vaginal support, physiologic discharge present, normal appearing perineal body and perianal region BIMANUAL: non-tender, difficult exam due to body habitus RECTOVAGINAL: deferred. NEURO: alert and oriented x3,exam grossly non-focal EXTREMITIES: normal ASSESSMENT/PLAN: 1) Health maintenance: Pap done with HPV. Mammogram starting age 40. Nutrition, exercise and routine health maintenance exams reviewed. Smoking cessation: Patient encouraged to avoid smoking. 2) Contraception: tubal ligation. Contraceptive options reviewed and information provided. 3) STD screening: Declined STD check. 4. Dermoid cyst of left ovary - ICD9: 220, ICD10: D27.1 Cyst has decreased in size over past year. Will monitor by US in 6 months. - PELVIC US [facility] 5) Follow up one year or sooner as needed Cece Olivares APRN.RAN CNOV Observed: 11/06/2018 Status: COMPLETED Source: [place] 8:00 AM [facility] REPOSITORY Office Visit (WOOB) YOBANY LONDONO ([id number]) 1980 F [facility] Date Time Provider Department 11/06/18 8:00 AM CECE OLIVARES (RAN) WOOB During your visit today, we recorded the following information about you: Weight Height 131.5 kg 1.549 m Cece Olivares APRN.CNP 11/06/2018 9:12 AM Signed Yobany Londono is a 38 year old who presents for her annual gynecologic exam without complaints. Pelvic US 11/10/17 - A left ovarian dermoid cyst is noted measuring 52 mm x 28 mm x 37 mm. Pt was to have 6 month follow-up US but did complete testing CT of abdomen [facility] 09/27/18 - Left ovary measured 7.2 x 4.1 cm with 4.2 x 3.2 cm mass with small calcification noted in the inferolateral margin consistent with dermoid tumor. Menses: cycles every every month and 10 days of light to moderate flow. Contraception: tubal ligation HPV vaccine: No Last Pap: 2012 normal HPV: negative History of abnormal pap: No Last mammogram: 2014normal Sexually active: rarely Patient concerns for STD exposure: No. 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 - ORAL SURGERY PROCEDURE teeth removed - PAST SURGICAL HISTORY OF TM tubes - REMOVAL OF TONSILS,<12 Y/O Tonsillectomy - TUBAL LIGATION FAMILY HISTORY Problem Relation Age of Onset - Diabetes Father - Hypertension Mother - Cancer Mother liver cancer - other (osteoarthritis) Mother - Heart Maternal Grandmother - Cancer Maternal Grandmother - Diabetes Paternal Grandfather - Prostate Cancer Paternal Grandfather - Stroke Paternal Grandmother - Heart Sister hole in heart - Breast Cancer Sister - other (osteochondroma) Son - other (osteochondroma) Son - Emphysema Maternal Aunt - COPD Maternal Aunt SOCIAL HISTORY Social History Substance Use Topics - Smoking status: Current Some Day Smoker Packs/day: 0.50 Years: 15.00 Types: Cigarettes Start date: 1994 - Smokeless tobacco: Never Used - Alcohol use No Comment: rare wine cooler- not while REVIEW OF SYSTEMS Abdomen: Consult at [facility] next month for hernia x 2. No nausea, vomiting, diarrhea, or constipation. No bloating, early satiety, indigestion, or increased flatulence. Bladder: No dysuria, gross hematuria, urinary frequency, urinary urgency, or incontinence. Breast: No breast lumps, nipple d/c, overlying skin changes, redness or skin retraction. Allergies and current medication updated:Yes EXAM: Ht 5' 1 (1.55m) Wt 290 lb (131.5kg) LMP 10/19/2018 BMI 54.82 kg/(m2). GENERAL: pleasant, female in no apparent distress HEENT: Normocephalic, atraumatic, mucus membranes moist and no lesions NECK: Supple, full range of motion, no adenopathy and thyroid normal DERMATOLOGY: Normal, without lesions, non-icteric and non-hirsute BREAST: soft, non-tender, symmetric, no dominant mass, normal nipple-areolar complex, no lymphadenopathy and no nipple discharge CHEST: Normal inspiratory effort ABDOMEN: soft and non-tender PELVIC: external genitalia normal, normal Bartholin's glands, urethra, Monango's glands, no vulvar lesions, no cervical lesions, good vaginal support, physiologic discharge present, normal appearing perineal body and perianal region BIMANUAL: non-tender, difficult exam due to body habitus RECTOVAGINAL: deferred. NEURO: alert and oriented x3,exam grossly non-focal EXTREMITIES: normal ASSESSMENT/PLAN: 1) Health maintenance: Pap done with HPV. Mammogram starting age 40. Nutrition, exercise and routine health maintenance exams reviewed. Smoking cessation: Patient encouraged to avoid smoking. 2) Contraception: tubal ligation. Contraceptive options reviewed and information provided. 3) STD screening: Declined STD check. 4. Dermoid cyst of left ovary - ICD9: 220, ICD10: D27.1 Cyst has decreased in size over past year. Will monitor by US in 6 months. - PELVIC US WH 5) Follow up one year or sooner as needed Cece Olivares APRN.RAN Schaffer 11/13/2018 2:35 PM Signed Pap logged and normal pap letter sent to patient. Juana Schaffer Referring Provider: SELF [[id number]] Allergies As of Date: 11/06/2018 Noted Allergy Reaction SEASONAL ALLERGIES 05/04/2013 5 - Intolerance PENICILLINS 02/11/2007 2 - Rash 11 - Vomiting Comments: JUST SENSITIVITY TO PCN PER DR FAJARDO Date Reviewed: 11/06/2018 Reviewed by: Cece Olivares - Fully Assessed Primary Visit Diagnosis:Encounter for gynecological examination (general) (routine) without abnormal findings [Z01.419] Other Visit Diagnoses:Screening for cervical cancer [Z12.4] Encounter for screening for human papillomavirus (HPV) [Z11.51] Dermoid cyst of left ovary [D27.1] Order(s):PAP FLUID CERVICAL SCREENING [[id number]] Order #: [id number]. #:[id number] PELVIC US WHI [[id number]] Order #: [id number]: 1 HPV W/GENOTYPE [SQHPVHRR] Order #: [id number]. #:[id number] Prescriptions as of 11/06/2018 Sig: ACETAMINOPHEN 500 MG TABLET EVERY 6 HOURS NEEDED ALBUTEROL SULFATE 2.5 MG/3 ML* Use 3 mL via nebulizer every * ALBUTEROL SULFATE HFA 90 MCG/* Inhale 2 Puffs as instructed * AZITHROMYCIN 250 MG TABLET Take 2 tablets day one, then,* VITAMIN B COMPLEX CAPSULE TAKE ONE CAPSULE BY MOUTH YOLY* CHOLECALCIFEROL (VITAMIN D3) * Take 1,000 Units by mouth onc* CITALOPRAM 40 MG TABLET Take 1 tablet by mouth once d* DICYCLOMINE 10 MG CAPSULE Take 2 capsules by mouth thre* FLUTICASONE 50 MCG/ACTUATION * Use 2 Sprays in each nostril * GUAIFENESIN 100 MG/5 ML ORAL * Take 10 mL by mouth four time* DEXTROMETHORPHAN-GUAIFENESIN * Take 10 mL by mouth every 6 h* LORATADINE 10 MG TABLET Take 1 tablet by mouth once d* MELOXICAM 15 MG TABLET TAKE ONE TABLET BY MOUTH ONCE* METHOCARBAMOL 500 MG TABLET Take 1 tablet by mouth three * MULTIVITAMIN TABLET Take 1 tablet by mouth once d* NICOTINE 21 MG/24 HR DAILY TR* Apply 1 Patch as directed yoly* OMEPRAZOLE 20 MG CAPSULE,GHASSAN* Take 1 capsule by mouth twice* PREDNISONE 20 MG TABLET Take 2 tablets by mouth once * SIMETHICONE 80 MG CHEWABLE TA* Take 1 tablet by mouth every * SYMBICORT 160 MCG-4.5 MCG/ACT* Inhale 2 Puffs into the lungs* VITAMIN B COMPLEX TABLET Take 1 tablet by mouth once d* Problem List As Of Date 11/06/2018 Noted Resolved Pulpitis [K04.01] INVALID FOR* OTHER LUNG DISEASE NEC [J98.4] INVALID FOR*03/09/2008 Tobacco use disorder [F17.200] INVALID FOR* More... Acute Bronchitis [J20.9] INVALID FOR* Chronic Airway Obstruction, not Elsewhere Class*INVALID FOR* Morbid obesity [E66.01] More... Back pain [M54.9] More... Osteochondroma, multiple [Q78.6] More... Asthma [J45.909] Depression with anxiety [F41.8] Asthma exacerbation [J45.901] INVALID FOR* SOB (shortness of breath) [R06.02] INVALID FOR* Fibromyalgia [M79.7] INVALID FOR* More... History of section [Z98.891] INVALID FOR* More... Obesity in [O99.210] INVALID FOR*03/07/2018 More... Supervision of normal [Z34.90] INVALID FOR*03/07/2018 Family history of seizure disorder [Z82.0] INVALID FOR* More... Encounter for sterilization [Z30.2] INVALID FOR* More... cardiac anomaly affecting , ante*INVALID FOR*03/07/2018 [Z34.90] INVALID FOR*03/07/2018 COPD exacerbation (HCC) [J44.1] INVALID FOR*03/24/2018 More... Obesity, Class III, BMI >= 40 E66.01 [E66.01] INVALID FOR* Healthcare maintenance [Z00.00] INVALID FOR*03/24/2018 More... On home O2 [Z99.81] INVALID FOR* Medications Discontinued During This Encounter COMPOUNDED PRESCRIPTION 1 De* 0 03/24/2018 11/06/2018 Class: Print RX Sig: Home oxygen : 3 Litre per minute with exercise and at hours of sleep via nasal canula with conserving device Associated diagnosis : COPD Patient not taking: Reported on 11/06/2018 Disc: Reason for discontinue is not on file. lidocaine (LIDODERM) 5 % 7 Pa* 0 03/11/2018 11/06/2018 Class: Print RX Route: TRANSDERMAL Sig: Apply 1 Patch as directed every 24 hours. Patient not taking: Reported on 11/06/2018 Disc: Reason for discontinue is not on file. Disposition: Return in 1 year (on 11/06/2019) for Annual Exam. Follow-up and Disposition History Recorded Letter Text Cece Olivares CNP [facility] [address] [place] [id number] Yobany Starkey [address] [address] 11/13/2018 [facility]: [id number] Dear Yobany, We are pleased to inform you that your recent Pap Test was within normal limits. Because Pap tests are so effective in the early detection of cervical cancer, you are encouraged to continue having the test at regular intervals. You will be due for a 1 year Gynecological Exam after this date 11/06/2019. If you have any questions regarding the above information, do not hesitate to call our office at between the hours of 8:00 a.m. and 5:00 p.m. Sincerely, Cece Olivares CNP Encounter Status:Closed by CECE OLIVARES on 11/06/18 HPV W/GENOTYPE Collected: 11/06/2018 Status: F Source: [place] 4:23 AM [facility] REPOSITORY TYPE CODE TESTS RESULT OUT OF REFERENCE UNITS RANGE LAB HPVT16 HPV HighRisk Negative for Type 16 HPV DNA high risk type 16 by PCR. LAB HPVT18 HPV HighRisk Negative for Type 18 HPV DNA high risk type 18 by PCR. LAB HPVHRO HPV HighRisk Negative for Other HPV DNA high risk types: 31,33,35,39,45 ,51,52,56,58,5 9,66,68 by PCR. Result Comment: This test was developed and its performance characteristics determined by [facility] [place] ([facility]). It has not been cleared or approved by the FDA. [facility] is regulated under CLIA as qualified to perform high-complexity testing. This test is used for clinical purposes. It should not be regarded as inv estigational or for research. Performed By: #### HPVHRR #### [facility] [address] [place], [place] [address] PROGRESS Observed: 11/05/2018 Status: COMPLETED Source: [place] 8:05 AM [facility] REPOSITORY HNO ID: [id number] Author: Bird Lopez Service: (none) Author Type: Nurse Practitioner Type: Progress Notes Filed: 11/05/2018 8:34 AM Note Text: Chief Complaint Patient presents with: Multiple Concerns: URI and muscle spasms HPI Yobany Londono is a 38 year old female who presents here today for multiple concerns. Pt has been seen at [facility] and [place] [facility] due to muscle spasms and stomach pain. Is getting a second opinion on her incisional hernia. Will be going to a general surgeon in [facility]. URI - Has a sore throat (last 4 days), nasal drainage (last 4 days), cough (persistent the last week) and headache to the point she feels she wants to vomit, but doesn't. Cough is productive. Dark green and thick. No diarrhea. Does have a headache. No fevers, some subjective chills. Other family members are ill. Spasms - Back spasms ongoing for the last months. Notes she used sisters Robaxin which gave her great relief. Was given short term Rx of [place] from ER and gave her great relief. No trauma or injury. Past medical history, appointments, medications, allergies reviewed. 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 - ORAL SURGERY PROCEDURE teeth removed - PAST SURGICAL HISTORY OF TM tubes - REMOVAL OF TONSILS,<12 Y/O Tonsillectomy - TUBAL LIGATION Family History FAMILY HISTORY Problem Relation Age of Onset - Diabetes Father - Hypertension Mother - Cancer Mother liver cancer - other (osteoarthritis) Mother - Heart Maternal Grandmother - Cancer Maternal Grandmother - Diabetes Paternal Grandfather - Prostate Cancer Paternal Grandfather - Stroke Paternal Grandmother - Heart Sister hole in heart - Breast Cancer Sister - other (osteochondroma) Son - other (osteochondroma) Son - Emphysema Maternal Aunt - COPD Maternal Aunt Patient Allergies ALLERGIES Allergen Reactions - Seasonal Allergies Intolerance - Penicillins Rash, Vomiting JUST SENSITIVITY TO PCN PER DR FAJARDO Current Medications Current Outpatient Prescriptions on File Prior to Visit: acetaminophen (TYLENOL) 500 mg tablet EVERY 6 HOURS NEEDED albuterol (PROVENTIL) 2.5 mg /3 mL (0.083 %) nebulizer solution Use 3 mL via nebulizer every 4 hours as needed for Wheezing/Shortness of Breath. Use over 5-15minutes. albuterol HFA (VENTOLIN HFA) 90 mcg/actuation inhaler Inhale 2 Puffs as instructed every 6 hours as needed for Wheezing/Shortness of Breath. B Complex Vitamins capsule TAKE ONE CAPSULE BY MOUTH EVERY DAY Cholecalciferol, Vitamin D3, (VITAMIN D) 1,000 unit cap Take 1,000 Units by mouth once daily. citalopram (CELEXA) 40 mg tablet Take 1 tablet by mouth once daily. COMPOUNDED PRESCRIPTION Home oxygen : 3 Litre per minute with exercise and at hours of sleep via nasal canula with conserving device Associated diagnosis : COPD dicyclomine (BENTYL) 10 mg capsule Take 2 capsules by mouth three times daily as needed. fluticasone (FLONASE) 50 mcg/actuation nasal spray Use 2 Sprays in each nostril once daily. Rinse mouth after use. guaiFENesin (ROBITUSSIN) 100 mg/5 mL syrup Take 10 mL by mouth four times daily as needed for Cough. guaiFENesin-dextromethorphan (ROBITUSSIN DM) 100-10 mg/5 mL syrup Take 10 mL by mouth every 6 hours as needed for Cough. lidocaine (LIDODERM) 5 % Apply 1 Patch as directed every 24 hours. loratadine (CLARITIN) 10 mg tablet Take 1 tablet by mouth once daily as needed. FOR ALLERGY SYMPTOMS meloxicam (MOBIC) 15 mg tablet TAKE ONE TABLET BY MOUTH ONCE DAILY WITH FOOD multivitamin tablet Take 1 tablet by mouth once daily. nicotine (NICODERM) 21 mg/24 hr Apply 1 Patch as directed every 24 hours. omeprazole (PRILOSEC) 20 mg capsule Take 1 capsule by mouth twice daily before meals. 1/2 hr before meal. simethicone, chewable (MYLICON) 80 mg chewable tablet Take 1 tablet by mouth every 6 hours as needed. SYMBICORT 160-4.5 mcg/actuation inhaler Inhale 2 Puffs into the lungs as instructed twice daily. vitamin b complex (B COMPLETE) tab Take 1 tablet by mouth once daily. No current facility-administered medications on file prior to visit. Social History Social History Marital status: Spouse name: Years of education: Number of children: Occupational History Occupation Employer Comment unemployed, disabi* Social History Main Topics Smoking status: Current Some Day Smoker Packs/day: 0.50 Years: 15.00 Types: Cigarettes Start date: 1994 Smokeless tobacco: Never Used Alcohol use: No Comment: rare wine cooler- not while Drug use: No Sexual activity: Yes Partners with: Male control/protection: None Social History Narrative Mother 2011. Father needs her help. 2 sons. EXAM: BP 116/72 (BP Site: Left Arm, BP Position: Sitting, BP Cuff Size: Large Adult) Pulse 84 Temp 36.9 ?C (98.4 ?F) (Tympanic) Resp 16 Wt 131 kg (288 lb 12.8 oz) LMP 10/19/2018 (Exact Date) BMI 54.57 kg/m? General Appearance: Well appearing, alert, in no acute distress, well-hydrated, well nourished. and Morbidly obese. Head: Normocephalic, no masses, lesions, tenderness or abnormalities. Eyes: Anicteric sclera. Pupils are equally round and reactive to light. Extraocular movements are intact. . Ears: External ears normal, canals clear. Nose/Sinuses: Positive findings: mucosa erythematous and swollen. Positive for maxillary sinus tenderness. Oropharynx: Lips, mucosa, and tongue normal, teeth and gums normal, oropharynx normal. Neck: Supple, no adenopathy; thyroid symmetric, normal size. Back:good flexion and extension, good range of motion, reflexes are 2+ and symmetric, motor and sensory appear to be normal Lungs: positive findings: wheezing cough. Heart: RRR without murmur, gallop, or rubs. No ectopy. Health Maintenance List PAP EVERY 5 YEARS due on 02/06/2018 HPV EVERY 5 YEARS due on 02/06/2018 STEROID INHALER PRESCRIBED due on 11/18/2018 STEROID INHALER ADHERENCE due on 11/18/2018 ANNUAL PCP TEAM CHRONIC DISEASE VISIT due on 09/05/2019 DTAP,TDAP,TD(6 - Td) due on 05/23/2026 ONE PNEUMOVAX PRIOR TO AGE 65 Completed INFLUENZA Completed Data reviewed ER Records ASSESSMENT/PLAN: 1. Sinobronchitis - ICD9: 473.9, 490, ICD10: J32.9, J40 (primary diagnosis) - Will begin treatment with as per antibiotic as written, see orders - The patient should also be given OTC decongestants prn and OTC cough and cold meds as needed for the first 5-7 days of treatment. - Supportive care with plenty of fluids, rest, and analgesia prn. - AZITHROMYCIN 250 MG TABLET - PREDNISONE 20 MG TABLET 2. Muscle spasm - ICD9: 728.85, ICD10: M62.838 - METHOCARBAMOL 500 MG TABLET 3. Abdominal cramping - ICD9: 789.00, ICD10: R10.9 - DICYCLOMINE 10 MG CAPSULE Follow up as needed. I agree with the Chief Complaint, ROS, and Past Histories independently gathered by the clinical it technical support specialist and the remaining scribed note accurately describes my personal service to the patient. Bird Lopez APRN.CNP The documentation for this note was completed by Shanti Bull Ma acting as scribe for Bird Lopez APRN.CNP. November 05, 2018 8:06 AM. . CNOV Observed: 11/05/2018 Status: COMPLETED Source: [place] 7:40 AM [facility] REPOSITORY Office Visit (FAMPWS) YOBANY LONDONO ([id number]) 1980 F [facility] Date Time Provider Department 11/05/18 7:40 AM BIRD LOPEZ (RAN) FAMPWS During your visit today, we recorded the following information about you: Temperature Pulse Respiration Blood pressure 98.4 degrees 84/minute 16/minute 116/72 Weight 131 kg Bird Lopez APRN.RAN 11/05/2018 8:34 AM Signed Chief Complaint Patient presents with: Multiple Concerns: URI and muscle spasms LIGIA Londono is a 38 year old female who presents here today for multiple concerns. Pt has been seen at [facility] and [place] [facility] due to muscle spasms and stomach pain. Is getting a second opinion on her incisional hernia. Will be going to a general surgeon in [facility]. URI - Has a sore throat (last 4 days), nasal drainage (last 4 days), cough (persistent the last week) and headache to the point she feels she wants to vomit, but doesn't. Cough is productive. Dark green and thick. No diarrhea. Does have a headache. No fevers, some subjective chills. Other family members are ill. Spasms - Back spasms ongoing for the last months. Notes she used sisters Robaxin which gave her great relief. Was given short term Rx of [place] from ER and gave her great relief. No trauma or injury. Past medical history, appointments, medications, allergies reviewed. 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 - ORAL SURGERY PROCEDURE teeth removed - PAST SURGICAL HISTORY OF TM tubes - REMOVAL OF TONSILS,<14 Y/O Tonsillectomy - TUBAL LIGATION Family History FAMILY HISTORY Problem Relation Age of Onset - Diabetes Father - Hypertension Mother - Cancer Mother liver cancer - other (osteoarthritis) Mother - Heart Maternal Grandmother - Cancer Maternal Grandmother - Diabetes Paternal Grandfather - Prostate Cancer Paternal Grandfather - Stroke Paternal Grandmother - Heart Sister hole in heart - Breast Cancer Sister - other (osteochondroma) Son - other (osteochondroma) Son - Emphysema Maternal Aunt - COPD Maternal Aunt Patient Allergies ALLERGIES Allergen Reactions - Seasonal Allergies Intolerance - Penicillins Rash, Vomiting JUST SENSITIVITY TO PCN PER DR FAJARDO Current Medications Current Outpatient Prescriptions on File Prior to Visit: acetaminophen (TYLENOL) 500 mg tablet EVERY 6 HOURS NEEDED albuterol (PROVENTIL) 2.5 mg /3 mL (0.083 %) nebulizer solution Use 3 mL via nebulizer every 4 hours as needed for Wheezing/Shortness of Breath. Use over 5-15minutes. albuterol HFA (VENTOLIN HFA) 90 mcg/actuation inhaler Inhale 2 Puffs as instructed every 6 hours as needed for Wheezing/Shortness of Breath. B Complex Vitamins capsule TAKE ONE CAPSULE BY MOUTH EVERY DAY Cholecalciferol, Vitamin D3, (VITAMIN D) 1,000 unit cap Take 1,000 Units by mouth once daily. citalopram (CELEXA) 40 mg tablet Take 1 tablet by mouth once daily. COMPOUNDED PRESCRIPTION Home oxygen : 3 Litre per minute with exercise and at hours of sleep via nasal canula with conserving device Associated diagnosis : COPD dicyclomine (BENTYL) 10 mg capsule Take 2 capsules by mouth three times daily as needed. fluticasone (FLONASE) 50 mcg/actuation nasal spray Use 2 Sprays in each nostril once daily. Rinse mouth after use. guaiFENesin (ROBITUSSIN) 100 mg/5 mL syrup Take 10 mL by mouth four times daily as needed for Cough. guaiFENesin-dextromethorphan (ROBITUSSIN DM) 100-10 mg/5 mL syrup Take 10 mL by mouth every 6 hours as needed for Cough. lidocaine (LIDODERM) 5 % Apply 1 Patch as directed every 24 hours. loratadine (CLARITIN) 10 mg tablet Take 1 tablet by mouth once daily as needed. FOR ALLERGY SYMPTOMS meloxicam (MOBIC) 15 mg tablet TAKE ONE TABLET BY MOUTH ONCE DAILY WITH FOOD multivitamin tablet Take 1 tablet by mouth once daily. nicotine (NICODERM) 21 mg/24 hr Apply 1 Patch as directed every 24 hours. omeprazole (PRILOSEC) 20 mg capsule Take 1 capsule by mouth twice daily before meals. 1/2 hr before meal. simethicone, chewable (MYLICON) 80 mg chewable tablet Take 1 tablet by mouth every 6 hours as needed. SYMBICORT 160-4.5 mcg/actuation inhaler Inhale 2 Puffs into the lungs as instructed twice daily. vitamin b complex (B COMPLETE) tab Take 1 tablet by mouth once daily. No current facility-administered medications on file prior to visit. Social History Social History Marital status: Spouse name: Years of education: Number of children: Occupational History Occupation Employer Comment unemployed, disabi* Social History Main Topics Smoking status: Current Some Day Smoker Packs/day: 0.50 Years: 15.00 Types: Cigarettes Start date: 1994 Smokeless tobacco: Never Used Alcohol use: No Comment: rare wine cooler- not while Drug use: No Sexual activity: Yes Partners with: Male control/protection: None Social History Narrative Mother 2011. Father needs her help. 2 sons. EXAM: BP 116/72 (BP Site: Left Arm, BP Position: Sitting, BP Cuff Size: Large Adult) Pulse 84 Temp 36.9 ?C (98.4 ?F) (Tympanic) Resp 16 Wt 131 kg (288 lb 12.8 oz) LMP 10/19/2018 (Exact Date) BMI 54.57 kg/m? General Appearance: Well appearing, alert, in no acute distress, well-hydrated, well nourished. and Morbidly obese. Head: Normocephalic, no masses, lesions, tenderness or abnormalities. Eyes: Anicteric sclera. Pupils are equally round and reactive to light. Extraocular movements are intact. . Ears: External ears normal, canals clear. Nose/Sinuses: Positive findings: mucosa erythematous and swollen. Positive for maxillary sinus tenderness. Oropharynx: Lips, mucosa, and tongue normal, teeth and gums normal, oropharynx normal. Neck: Supple, no adenopathy; thyroid symmetric, normal size. Back:good flexion and extension, good range of motion, reflexes are 2+ and symmetric, motor and sensory appear to be normal Lungs: positive findings: wheezing cough. Heart: RRR without murmur, gallop, or rubs. No ectopy. Health Maintenance List PAP EVERY 5 YEARS due on 02/06/2018 HPV EVERY 5 YEARS due on 02/06/2018 STEROID INHALER PRESCRIBED due on 11/18/2018 STEROID INHALER ADHERENCE due on 11/18/2018 ANNUAL PCP TEAM CHRONIC DISEASE VISIT due on 09/05/2019 DTAP,TDAP,TD(6 - Td) due on 05/23/2026 ONE PNEUMOVAX PRIOR TO AGE 65 Completed INFLUENZA Completed Data reviewed ER Records ASSESSMENT/PLAN: 1. Sinobronchitis - ICD9: 473.9, 490, ICD10: J32.9, J40 (primary diagnosis) - Will begin treatment with as per antibiotic as written, see orders - The patient should also be given OTC decongestants prn and OTC cough and cold meds as needed for the first 5-7 days of treatment. - Supportive care with plenty of fluids, rest, and analgesia prn. - AZITHROMYCIN 250 MG TABLET - PREDNISONE 20 MG TABLET 2. Muscle spasm - ICD9: 728.85, ICD10: M62.838 - METHOCARBAMOL 500 MG TABLET 3. Abdominal cramping - ICD9: 789.00, ICD10: R10.9 - DICYCLOMINE 10 MG CAPSULE Follow up as needed. I agree with the Chief Complaint, ROS, and Past Histories independently gathered by the clinical it technical support specialist and the remaining scribed note accurately describes my personal service to the patient. Bird Lopez APRN.BUFFER CHROME The documentation for this note was completed by Shanti Bull Ma acting as scribe for Bird Lopez APRN.CNP. November 05, 2018 8:06 AM. . Allergies As of Date: 11/05/2018 Noted Allergy Reaction SEASONAL ALLERGIES 05/04/2013 5 - Intolerance PENICILLINS 02/11/2007 2 - Rash 11 - Vomiting Comments: JUST SENSITIVITY TO PCN PER DR FAJARDO Date Reviewed: 11/05/2018 Reviewed by: Shanti Bull Ma - Fully Assessed Reason for Visit: Multiple Concerns [253] Cmt: URI and muscle spasms Primary Visit Diagnosis:Sinobronchitis [J32.9, J40] Other Visit Diagnoses:Muscle spasm [M62.838] Abdominal cramping [R10.9] Order(s):azithromycin (ZITHROMAX Z-ABRAHAN) 250 mg tabletTake 2 tablets day one, then, 1 tablet daily until gone.Disp: 1 PackageRfl: 0 predniSONE (DELTASONE) 20 mg tabletTake 2 tablets by mouth once daily for 5 days. Take daily with food.Disp: 10 tabletRfl: 0 methocarbamol (ROBAXIN) 500 mg tabletTake 1 tablet by mouth three times daily.Disp: 90 tabletRfl: 0 guaiFENesin-dextromethorphan (ROBITUSSIN DM) 100- 10 mg/5 mL syrupTake 10 mL by mouth every 6 hours as needed for Cough.Disp: 354 mLRfl: 1 dicyclomine (BENTYL) 10 mg capsuleTake 2 capsules by mouth three times daily as needed.Disp: 60 capsuleRfl: 5 Prescriptions as of 11/05/2018 Sig: ACETAMINOPHEN 500 MG TABLET EVERY 6 HOURS NEEDED ALBUTEROL SULFATE 2.5 MG/3 ML* Use 3 mL via nebulizer every * ALBUTEROL SULFATE HFA 90 MCG/* Inhale 2 Puffs as instructed * VITAMIN B COMPLEX CAPSULE TAKE ONE CAPSULE BY MOUTH YOLY* CHOLECALCIFEROL (VITAMIN D3) * Take 1,000 Units by mouth onc* CITALOPRAM 40 MG TABLET Take 1 tablet by mouth once d* COMPOUNDED PRESCRIPTION Home oxygen : 3 Litre per min* DICYCLOMINE 10 MG CAPSULE Take 2 capsules by mouth thre* FLUTICASONE 50 MCG/ACTUATION * Use 2 Sprays in each nostril * GUAIFENESIN 100 MG/5 ML ORAL * Take 10 mL by mouth four time* LORATADINE 10 MG TABLET Take 1 tablet by mouth once d* MULTIVITAMIN TABLET Take 1 tablet by mouth once d* NICOTINE 21 MG/24 HR DAILY TR* Apply 1 Patch as directed yoly* OMEPRAZOLE 20 MG CAPSULE,GHASSAN* Take 1 capsule by mouth twice* SIMETHICONE 80 MG CHEWABLE TA* Take 1 tablet by mouth every * SYMBICORT 160 MCG-4.5 MCG/ACT* Inhale 2 Puffs into the lungs* AZITHROMYCIN 250 MG TABLET Take 2 tablets day one, then,* DEXTROMETHORPHAN-GUAIFENESIN * Take 10 mL by mouth every 6 h* LIDOCAINE 5 % TOPICAL PATCH Apply 1 Patch as directed yoly* MELOXICAM 15 MG TABLET TAKE ONE TABLET BY MOUTH ONCE* METHOCARBAMOL 500 MG TABLET Take 1 tablet by mouth three * PREDNISONE 20 MG TABLET Take 2 tablets by mouth once * VITAMIN B COMPLEX TABLET Take 1 tablet by mouth once d* Problem List As Of Date 11/05/2018 Noted Resolved Pulpitis [K04.01] INVALID FOR* OTHER LUNG DISEASE NEC [J98.4] INVALID FOR*03/09/2008 Tobacco use disorder [F17.200] INVALID FOR* More... Acute Bronchitis [J20.9] INVALID FOR* Chronic Airway Obstruction, not Elsewhere Class*INVALID FOR* Morbid obesity [E66.01] More... Back pain [M54.9] More... Osteochondroma, multiple [Q78.6] More... Asthma [J45.909] Depression with anxiety [F41.8] Asthma exacerbation [J45.901] INVALID FOR* SOB (shortness of breath) [R06.02] INVALID FOR* Fibromyalgia [M79.7] INVALID FOR* More... History of section [Z98.891] INVALID FOR* More... Obesity in [O99.210] INVALID FOR*03/07/2018 More... Supervision of normal [Z34.90] INVALID FOR*03/07/2018 Family history of seizure disorder [Z82.0] INVALID FOR* More... Encounter for sterilization [Z30.2] INVALID FOR* More... cardiac anomaly affecting , ante*INVALID FOR*03/07/2018 [Z34.90] INVALID FOR*03/07/2018 COPD exacerbation (HCC) [J44.1] INVALID FOR*03/24/2018 More... Obesity, Class III, BMI >= 40 E66.01 [E66.01] INVALID FOR* Healthcare maintenance [Z00.00] INVALID FOR*03/24/2018 More... On home O2 [Z99.81] INVALID FOR* Prescriptions ordered this encounter Disp Refills Start End AZITHROMYCIN 250 MG TABLET 1 Pa* 0 11/05/2018 11/10/2018 Sig: Take 2 tablets day one, then, 1 tablet daily until gone. PREDNISONE 20 MG TABLET 10 t* 0 11/05/2018 11/10/2018 Route: ORAL Sig: Take 2 tablets by mouth once daily for 5 days. Take daily with food. METHOCARBAMOL 500 MG TABLET 90 t* 0 11/05/2018 Route: ORAL Sig: Take 1 tablet by mouth three times daily. DEXTROMETHORPHAN-GUAIFENESIN 10 MG-1* 354 * 1 11/05/2018 Route: ORAL Sig: Take 10 mL by mouth every 6 hours as needed for Cough. DICYCLOMINE 10 MG CAPSULE 60 c* 5 11/05/2018 Route: ORAL Sig: Take 2 capsules by mouth three times daily as needed. Medications Discontinued During This Encounter guaiFENesin-dextromethorphan (ROBITU* 354 * 0 03/24/2018 11/05/2018 Class: Print RX Route: ORAL Sig: Take 10 mL by mouth every 6 hours as needed for Cough. Disc: Reason for discontinue is not on file. dicyclomine (BENTYL) 10 mg capsule 60 c* 5 09/08/2018 11/05/2018 Cmt: This prescription was filled on 09/06/2018. Any refills authorized will be placed on file. Route: ORAL Sig: Take 2 capsules by mouth three times daily as needed. Disc: Reason for discontinue is not on file. Disposition: Return if symptoms worsen or fail to improve. Follow-up and Disposition History Recorded Encounter Status:Closed by BIRD LOPEZ CNP on 11/05/18 PROGRESS Observed: 11/01/2018 Status: COMPLETED Source: [place] 8:50 AM [facility] REPOSITORY O ID: [id number] Author: Karthik Chan Service: (none) Author Type: Physician Type: Progress Notes Filed: 11/01/2018 9:06 AM Note Text: HISTORY AND PHYSICAL Yobany Starkey 1980 REFERRING PHYSICIAN: Pelon Garrett* CHIEF COMPLAINT: ventral hernia/incisional hernia HPI: Yobany is a 38 year old female a complaint of lower abdominal pain with a lower abdominal incisional hernia. The patient presented to [facility] emergency department on October 30, 2018. She noted at that ER visit that she had lower abdominal pain at a previous site for the past 3 years. She tells the emergency room physician that I stated when I saw her in 2016 that I would not perform her surgery due to her obesity. CT scan obtained through the [facility] course department demonstrates a suprapubic incisional hernia consistent with her site with a loop of bowel present in that area without signs obstruction. She also has progression of a umbilical hernia. I did initially seen the patient 2016 with what she had at that time a complaint upper abdominal pain and the patient notes a bulge in her upper abdominal midline. The patient notes discomfort due to a very chronic cough in her right and left upper quadrants. She also notes a bulge in her upper midline. She wonders if this is related to her hernia. She specifically denies to me pain in her lower abdominal area where a hernia is demonstrated on CT scan. The patient states she has significant pulmonary problems when she was born. She has ongoing issues related to lung disease with recurrent bronchitis. She continues to smoke and is smoked for at least 15 years. The patient had pulmonary function tests in 2011 which demonstrated a degree of pulmonary impairment. She now notes a relatively persistent cough and is frequently treated with antibiotics and steroids for her bronchitis. She states she has not seen a tank car inspector or had repeat pulmonary function tests for some time. She presented to [place] emergency department with these complaints and underwent a chest x-ray and CT scan of the abdomen and pelvis. CT scan of the abdomen pelvis demonstrated: ? IMPRESSION: 1. Evidence of a ventral wall hernia at the level the lower pelvis as seen on axial image 103, coronal image 41 and sagittal image 74. ?Hernia contains a nonobstructed loop of bowel. ?There is inflammatory change as well as fluid in the ?hernia. No evidence of pneumoperitoneum. ? 2. ?On axial image 83 and coronal image 57, 3.9 x 4.5 cm mass in the left adnexa containing fat soft tissue and calcification, consistent with a dermoid tumor. ?4 cm x 4.5 cm fluid density mass right adnexa ? The patient notes no symptoms of bowel obstruction and denies nausea or vomiting. The patient was seen by the emergency room physician who felt the patient has a hernia. Crystal was referred for evaluation and treatment. At that time, the patient was referred to me at the request of Dr. Tona Herrera for my opinion and advice regarding abdominal pain in the upper abdomen and an occult incisional hernia in the lower midline. 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 At the time I informed the patient I would be willing to repair her hernia if she quit smoking and obtained pulmonary function testing. Pulmonary function tests were obtained in June 2018. This demonstrated total lung capacity of 3.87 or 84% predicted, a functional vital capacity of 1.86 or 55% predicted and FEV1 of 0.86 or 30% predicted. The patient continues to smoke. She was evaluated by montana Berger on June 20, 2018. He noted severe COPD likely secondary continued tobacco use and morbid obesity. He recommended albuterol, smoking cessation and oxygen as necessary She has been evaluated by Dr. Marcelino Agarwal on July 18, 2018 with a complaint of dyspnea on exertion. He felt her dyspnea on exertion symptoms are due to obesity and severe lung disease along with severe deconditioning. He does not see any signs of pulmonary hypertension but feels given her situation she is a set up for pickwickian syndrome in the future. 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 - ORAL SURGERY PROCEDURE teeth removed - PAST SURGICAL HISTORY OF TM tubes - REMOVAL OF TONSILS,<14 Y/O Tonsillectomy - TUBAL LIGATION Current Outpatient Prescriptions: acetaminophen (TYLENOL) 500 mg tablet EVERY 6 HOURS NEEDED albuterol (PROVENTIL) 2.5 mg /3 mL (0.083 %) nebulizer solution Use 3 mL via nebulizer every 4 hours as needed for Wheezing/Shortness of Breath. Use over 5-15minutes. albuterol HFA (VENTOLIN HFA) 90 mcg/actuation inhaler Inhale 2 Puffs as instructed every 6 hours as needed for Wheezing/Shortness of Breath. B Complex Vitamins capsule TAKE ONE CAPSULE BY MOUTH EVERY DAY Cholecalciferol, Vitamin D3, (VITAMIN D) 1,000 unit cap Take 1,000 Units by mouth once daily. citalopram (CELEXA) 40 mg tablet Take 1 tablet by mouth once daily. COMPOUNDED PRESCRIPTION Home oxygen : 3 Litre per minute with exercise and at hours of sleep via nasal canula with conserving device Associated diagnosis : COPD dicyclomine (BENTYL) 10 mg capsule Take 2 capsules by mouth three times daily as needed. fluticasone (FLONASE) 50 mcg/actuation nasal spray Use 2 Sprays in each nostril once daily. Rinse mouth after use. guaiFENesin (ROBITUSSIN) 100 mg/5 mL syrup Take 10 mL by mouth four times daily as needed for Cough. guaiFENesin-dextromethorphan (ROBITUSSIN DM) 100-10 mg/5 mL syrup Take 10 mL by mouth every 6 hours as needed for Cough. lidocaine (LIDODERM) 5 % Apply 1 Patch as directed every 24 hours. loratadine (CLARITIN) 10 mg tablet Take 1 tablet by mouth once daily as needed. FOR ALLERGY SYMPTOMS meloxicam (MOBIC) 15 mg tablet TAKE ONE TABLET BY MOUTH ONCE DAILY WITH FOOD multivitamin tablet Take 1 tablet by mouth once daily. nicotine (NICODERM) 21 mg/24 hr Apply 1 Patch as directed every 24 hours. omeprazole (PRILOSEC) 20 mg capsule Take 1 capsule by mouth twice daily before meals. 1/2 hr before meal. simethicone, chewable (MYLICON) 80 mg chewable tablet Take 1 tablet by mouth every 6 hours as needed. SYMBICORT 160-4.5 mcg/actuation inhaler Inhale 2 Puffs into the lungs as instructed twice daily. vitamin b complex (B COMPLETE) tab Take 1 tablet by mouth once daily. HYDROcodone-acetaminophen (NORCO) 5-325 mg per tablet Take 1 tablet by mouth every 8 hours as needed for up to 3 days.Earliest Fill Date: 10/31/18 No current facility-administered medications for this visit. ALLERGIES: Seasonal Allergies; Penicillins PERSONAL HISTORY: Social History Marital status: Spouse name: Years of education: Number of children: Occupational History Occupation Employer Comment unemployed, disabi* Social History Main Topics Smoking status: Current Some Day Smoker Packs/day: 0.50 Years: 15.00 Types: Cigarettes Start date: 1994 Smokeless tobacco: Never Used Alcohol use: No Comment: rare wine cooler- not while Drug use: No Sexual activity: Yes Partners with: Male control/protection: None Social History Narrative Mother 2011. Father needs her help. 2 sons. FAMILY HISTORY: FAMILY HISTORY Problem Relation Age of Onset - Diabetes Father - Hypertension Mother - Cancer Mother liver cancer - other (osteoarthritis) Mother - Heart Maternal Grandmother - Cancer Maternal Grandmother - Diabetes Paternal Grandfather - Prostate Cancer Paternal Grandfather - Stroke Paternal Grandmother - Heart Sister hole in heart - Breast Cancer Sister - other (osteochondroma) Son - other (osteochondroma) Son - Emphysema Maternal Aunt - COPD Maternal Aunt REVIEW OF SYMPTOMS: The review of systems data was entered by the nurse and reviewed by me Nursing Notes: Corine Rousseau LPN 10/31/2018 2:28 PM Signed REVIEW OF SYSTEMS: General: The patient NOTES fatigue, denies weight loss, denies weight gain, denies feeling hot, and denies feelings of cold. Eyes: The patient denies glaucoma, denies eye injury/surgery, wears glasses or contacts. Ear/Nose/Throat: The patient NOTES allergies, denies hayfever, denies ear infections, and denies bloody noses. Cardiovascular: The patient denies chest pain, denies heart disease, denies high blood pressure,denies cardiac stent, denies prior heart attack, denies irregular heart beat, denies high cholesterol, NOTES poor circulation, denies heart failure, other cardiac issues, denies claudication, denies cold feet, denies peripheral arterial stent. Respiratory: The patient denies tuberculosis, denies pneumonia, NOTES frequent cough, denies pulmonary embolism, denies shortness of breath, and denies coughing up blood. Gastrointestinal: The patient denies difficulty swallowing, denies acid reflux, denies ulcers, denies vomiting, denies jaundice/hepatitis, denies gallbladder problems, denies black or tarry stools, denies hemorrhoids, denies bleeding from rectum, denies diverticulitis, denies constipation, denies diarrhea, denies loss of stool control, and NOTES hernias. Kidney/Bladder: The patient denies kidney stones, denies urine infections, and denies bloody urine. Skin: The patient denies a history of skin cancer, denies bleeding/changing moles, and denies a history of skin rash. Neurologic: The patient denies a history of epilepsy/convulsions, NOTES headaches, denies head/spinal injuries, and denies stroke/TIA. Psychiatric: The patient denies psychiatric medications, NOTES depression, and denies voices, denies substance abuse. Endocrine: The patient denies thyroid disorders, denies diabetes, and denies hormonal problems. Hematologic: The patient NOTES a history of bruising, denies bleeding, and denies anemia, denies blood clots. Infections: The patient denies a history of measles and mumps, denies rheumatic fever, and denies sexually transmitted diseases. Musculoskeletal: The patient denies back pain/injury, NOTES back problems, denies sciatica, denies knee/foot trouble, NOTES arthritis, or denies gout. When was patient's last Mammogram screening? N/A Last Colonoscopy: none Corine Rousseau LPN PHYSICAL EXAMINATION: General: The patient is 37 year old female, well nourished, well hydrated in no acute distress. Super Morbidly obese. The patient is oriented to time, place, and person. VITALS: Blood pressure 114/62, pulse 97, temperature 36.2 ?C (97.2 ?F), temperature source Temporal Artery, height 154.9 cm (5' 1), weight 128 kg (282 lb 3.2 oz), last menstrual period 10/19/2018, SpO2 96 %. Body mass index is 53.32 kg/m?. HEENT: Normal cephalic, ataumatic, pupils are equally round, sclera are anicteric, mucous membranes are moist, oropharynx is clear. Neck has no masses, asymmetry or lymphadenopathy. Thyroid is unremarkable. Respiratory: Coarse breath sounds throughout, decreased breath sounds at the bases, wheezes and musical tones throughout. Tender on both right and left costal margins with palpation Cardiac: Examination is regular rate and rhythm. Abdominal exam: Morbidly obese. Soft, nontender in the epigastric right and left upper quadrants were not pressing on the costal margins, with no palpable masses. No hepatosplenomegaly. The patient has a degree of upper abdominal diastases recti which is nontender A small, reducible lower midline incisional hernia is palpable consistent with the findings on CT scan. Rectal exam: exam deferred Extremities: no clubbing, cyanosis or edema. No adenopathy. Other: LABORATORY VALUES: As Noted RADIOLOGIC STUDIES: As Noted Assessment IMPRESSION: prior lower abdominal incisional hernia, super morbid obesity, pulmonary function test and clinically severe COPD, high risk for hernia repair, PLAN: . I discussed with the patient given the fact that she apparently had significant lung problems since now has clinically worsening lung problems in addition to her morbid obesity and continues to smoke that my first recommendation is she quit smoking before any attempt at hernia repair. I discussed with the patient that her pulmonary function tests given her age have risks for lung issues and longevity way beyond just repair of the hernia. All tobacco/nicotine use needs to be completely stopped at least 4 weeks prior to surgery and not used in any form for 8 weeks following surgery due to nicotine's prevention of appropriate wound healing The patient presented to me the opinion that her significant other had a surgical procedure and smoked more than she did. We further discussed the risks that nicotine use poses for hernia repair. Given the fact she has multiple risk factors for hernia recurrence including steroid use chronic cough and obesity I highly recommended smoking cessation prior to any procedures when I evaluated the patient last year, prior to learning how severe her pulmonary disease is. The patient became frustrated and stated that there is no way she can quit smoking given the stresses in her life raising children etc. I again tried to explain the severe nature of her lung issues and her likely outcomes for both surgery and chronic pulmonary complications given her lung function. I again reiterated I would not repair her hernia until she would quit smoking. In reviewing the pulmonary function testing I'm not certain that my local anesthesiologist would consider repairing her hernias given her FEV1. She again reiterated that she is in pain and needs to have something done for this. My findings have been communicated to Dr. Tona Herrera via shared medical record. This note will be forwarded to Dr. Juany Holt MD. Diagnoses: (K43.2) Incisional hernia, without obstruction or gangrene (primary encounter diagnosis) (F17.200) Tobacco use disorder Return to Clinic: The patient is instructed to follow-up with me as needed. Karthik Chan MD ED NOTE Observed: 10/31/2018 Status: COMPLETED Source: [place] 11:38 PM [facility] REPOSITORY HNO ID: [id number] Author: Kerri MercadoRn) TONY Fisher Service: Emergency Medicine Author Type: Registered Nurse Type: ED Notes Filed: 10/31/2018 11:38 PM Note Text: Patient informed: the name of medication, why we are giving it, possible side effects, what they may expect to feel, and was offered a chance to ask questions, prior to the administration of norco, motrin ED PROV NOTE Observed: 10/31/2018 Status: COMPLETED Source: [place] 11:28 PM [facility] REPOSITORY HNO ID: [id number] Author: Chayo Gray MD Service: Emergency Medicine Author Type: Physician Type: ED Provider Notes Filed: 10/31/2018 11:35 PM Note Text: ED Provider Note Patient Name: Yobany Londono SERVICE DATE: 10/31/18 History Patient presents with: Abdominal Pain Yobany Londono is a 38 year old female with history of abdominal hernias who presents with lower abdominal pain. Patient has Seen general surgeon today with no relief of symptoms. - Symptom began chronic. - Severity: moderate - Timing: constant - Quality: pain - Pain is exacerbated by movement. Pain radiates to none. - Pain is not exacerbated by inspiration. - Symptoms are associated with pain. - Symptoms are not associated with fever and vomiting. - Improved by prescription medications. - Not improved by rest CT scan 3 weeks ago, saw surgeon today And states he advised against surgery and that she could get second opinion. Lastnight was at [facility] and got 2 tablets [place]. 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 - ORAL SURGERY PROCEDURE teeth removed - PAST SURGICAL HISTORY OF TM tubes - REMOVAL OF TONSILS,<14 Y/O Tonsillectomy - TUBAL LIGATION FAMILY HISTORY Problem Relation Age of Onset - Diabetes Father - Hypertension Mother - Cancer Mother liver cancer - other (osteoarthritis) Mother - Heart Maternal Grandmother - Cancer Maternal Grandmother - Diabetes Paternal Grandfather - Prostate Cancer Paternal Grandfather - Stroke Paternal Grandmother - Heart Sister hole in heart - Breast Cancer Sister - other (osteochondroma) Son - other (osteochondroma) Son - Emphysema Maternal Aunt - COPD Maternal Aunt Social History Social History Main Topics - Smoking status: Current Some Day Smoker Packs/day: 0.50 Years: 15.00 Types: Cigarettes Start date: 1994 - Smokeless tobacco: Never Used - Alcohol use No Comment: rare wine cooler- not while - Drug use: No - Sexual activity: Yes Partners: Male control/ protection: None ALLERGIES Allergen Reactions - Seasonal Allergies Intolerance - Penicillins Rash, Vomiting JUST SENSITIVITY TO PCN PER DR FAJARDO Review of Systems Constitutional: Negative for chills and fever. HENT: Negative for congestion, rhinorrhea and sore throat. Respiratory: Negative for cough and shortness of breath. Gastrointestinal: Positive for abdominal pain. Negative for abdominal distention, constipation, diarrhea, nausea and vomiting. Genitourinary: Negative for dysuria, flank pain and frequency. Musculoskeletal: Negative for back pain and myalgias. Skin: Negative for color change, pallor, rash and wound. Allergic/Immunologic: Positive for environmental allergies. Negative for food allergies and immunocompromised state. Psychiatric/Behavioral: Negative for confusion. The patient is not nervous/anxious. Physical Exam BP 116/63 Pulse 73 Temp (Src) 98.6 (Temporal Artery) Resp 18 Ht 5' 1 (1.55m) Wt 281 lb (127.5kg) SpO2 97% LMP 10/19/2018 BMI 53.12 kg/(m2). Physical Exam Constitutional: She is oriented to person, place, and time. No distress. obese Eyes: EOM are normal. Right eye exhibits no discharge. Left eye exhibits no discharge. No scleral icterus. Neck: No JVD present. No tracheal deviation present. Cardiovascular: Normal rate and regular rhythm. Pulmonary/Chest: Effort normal. No respiratory distress. Abdominal: Soft. She exhibits no distension. There is tenderness. There is no rebound and no guarding. obese abdomen tenderness in the lower abdomen around her C- section scar and also around the umbilicus she says this correlates to the 2 areas of hernia I cannot palpate a mass at this time no acute abdomen bowel sounds present Musculoskeletal: Normal range of motion. She exhibits no edema, tenderness or deformity. Neurological: She is alert and oriented to person, place, and time. No sensory deficit. She exhibits normal muscle tone. Skin: Skin is warm and dry. Capillary refill takes less than 2 seconds. No rash noted. She is not diaphoretic. No erythema. No pallor. Psychiatric: She has a normal mood and affect. Her behavior is normal. Judgment and thought content normal. Nursing note and vitals reviewed. Diagnostic Testing ED Labs Ordered and Reviewed - No data to display Procedures ED Course / Clinical Impression MDM / Disposition / Plan there is nothing new tonight regarding the abdominal pain patient is mostly upset that she doesn't have any medication for pain and that the surgeon was not going to be able to fix hernias I did give her on-call surgery for follow-up so she can get a second opinion she does state she got 2 tablets of Trumbull in the emergency department last night I reviewed her OARRS and she has no prescriptions NARX score of 0. I will give her a prescription of 9 Trumbull to use sparingly until she can see her family doctor if she needs further pain control also on-call surgeon referral return if she develops any signs/symptoms of acute abdomen or obstruction Disposition The patient was discharged. Counseled patient and spouse regarding suspected diagnosis. As well as the need for follow-up. Discharged home with verbal and written instructions. They were instructed to return as needed for persistent or worsening symptoms or any new concerns. Condition at disposition is stable. SIGNATURE: MD Chayo Zaldivar MD 10/31/18 2335 ED NOTE Observed: 10/31/2018 Status: COMPLETED Source: [place] 11:14 PM [facility] REPOSITORY HNO ID: [id number] Author: Cece (Rn) TONY Johnson Service: Emergency Medicine Author Type: Registered Nurse Type: ED Notes Filed: 10/31/2018 11:23 PM Note Text: Pt to ED with c/o I saw surgeon today for my hernias and he didn't do anything for them and didn't give me anything for pain and I want you guys to send me somewhere tonight to get this fixed. CNOV Observed: 10/31/2018 Status: COMPLETED Source: [place] 1:50 PM [facility] REPOSITORY Office Visit (GENSWS) YOBANY LONDONO ([id number]) 1980 [facility] Date Time Provider Department 10/31/18 1:50 PM KARTHIK CHAN GENSWS During your visit today, we recorded the following information about you: Temperature Pulse Blood pressure Weight 97.2 degrees 97/minute 114/62 128 kg Height 1.549 m Corine Rousseau LPN 10/31/2018 2:28 PM Signed REVIEW OF SYSTEMS: General: The patient NOTES fatigue, denies weight loss, denies weight gain, denies feeling hot, and denies feelings of cold. Eyes: The patient denies glaucoma, denies eye injury/surgery, wears glasses or contacts. Ear/Nose/Throat: The patient NOTES allergies, denies hayfever, denies ear infections, and denies bloody noses. Cardiovascular: The patient denies chest pain, denies heart disease, denies high blood pressure,denies cardiac stent, denies prior heart attack, denies irregular heart beat, denies high cholesterol, NOTES poor circulation, denies heart failure, other cardiac issues, denies claudication, denies cold feet, denies peripheral arterial stent. Respiratory: The patient denies tuberculosis, denies pneumonia, NOTES frequent cough, denies pulmonary embolism, denies shortness of breath, and denies coughing up blood. Gastrointestinal: The patient denies difficulty swallowing, denies acid reflux, denies ulcers, denies vomiting, denies jaundice/hepatitis, denies gallbladder problems, denies black or tarry stools, denies hemorrhoids, denies bleeding from rectum, denies diverticulitis, denies constipation, denies diarrhea, denies loss of stool control, and NOTES hernias. Kidney/Bladder: The patient denies kidney stones, denies urine infections, and denies bloody urine. Skin: The patient denies a history of skin cancer, denies bleeding/changing moles, and denies a history of skin rash. Neurologic: The patient denies a history of epilepsy/convulsions, NOTES headaches, denies head/spinal injuries, and denies stroke/TIA. Psychiatric: The patient denies psychiatric medications, NOTES depression, and denies voices, denies substance abuse. Endocrine: The patient denies thyroid disorders, denies diabetes, and denies hormonal problems. Hematologic: The patient NOTES a history of bruising, denies bleeding, and denies anemia, denies blood clots. Infections: The patient denies a history of measles and mumps, denies rheumatic fever, and denies sexually transmitted diseases. Musculoskeletal: The patient denies back pain/injury, NOTES back problems, denies sciatica, denies knee/foot trouble, NOTES arthritis, or denies gout. When was patient's last Mammogram screening? N/A Last Colonoscopy: none Corine Chan MD 11/01/2018 9:06 AM Signed HISTORY AND PHYSICAL [place] 1980 REFERRING PHYSICIAN: Neyhart Herrera, Deidr* CHIEF COMPLAINT: ventral hernia/incisional hernia HPI: Yobany is a 38 year old female a complaint of lower abdominal pain with a lower abdominal incisional hernia. The patient presented to [facility] emergency department on October 30, 2018. She noted at that ER visit that she had lower abdominal pain at a previous site for the past 3 years. She tells the emergency room physician that I stated when I saw her in 2017 that I would not perform her surgery due to her obesity. CT scan obtained through the [facility] course department demonstrates a suprapubic incisional hernia consistent with her site with a loop of bowel present in that area without signs obstruction. She also has progression of a umbilical hernia. I did initially seen the patient 2016 with what she had at that time a complaint upper abdominal pain and the patient notes a bulge in her upper abdominal midline. The patient notes discomfort due to a very chronic cough in her right and left upper quadrants. She also notes a bulge in her upper midline. She wonders if this is related to her hernia. She specifically denies to me pain in her lower abdominal area where a hernia is demonstrated on CT scan. The patient states she has significant pulmonary problems when she was born. She has ongoing issues related to lung disease with recurrent bronchitis. She continues to smoke and is smoked for at least 15 years. The patient had pulmonary function tests in 2011 which demonstrated a degree of pulmonary impairment. She now notes a relatively persistent cough and is frequently treated with antibiotics and steroids for her bronchitis. She states she has not seen a tank car inspector or had repeat pulmonary function tests for some time. She presented to [place] emergency department with these complaints and underwent a chest x-ray and CT scan of the abdomen and pelvis. CT scan of the abdomen pelvis demonstrated: ? IMPRESSION: 1. Evidence of a ventral wall hernia at the level the lower pelvis as seen on axial image 103, coronal image 41 and sagittal image 74. ?Hernia contains a nonobstructed loop of bowel. ?There is inflammatory change as well as fluid in the ?hernia. No evidence of pneumoperitoneum. ? 2. ?On axial image 83 and coronal image 57, 3.9 x 4.5 cm mass in the left adnexa containing fat soft tissue and calcification, consistent with a dermoid tumor. ?4 cm x 4.5 cm fluid density mass right adnexa ? The patient notes no symptoms of bowel obstruction and denies nausea or vomiting. The patient was seen by the emergency room physician who felt the patient has a hernia. Yobany was referred for evaluation and treatment. At that time, the patient was referred to me at the request of Dr. Tona Herrera for my opinion and advice regarding abdominal pain in the upper abdomen and an occult incisional hernia in the lower midline. 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 At the time I informed the patient I would be willing to repair her hernia if she quit smoking and obtained pulmonary function testing. Pulmonary function tests were obtained in June 2018. This demonstrated total lung capacity of 3.87 or 84% predicted, a functional vital capacity of 1.86 or 55% predicted and FEV1 of 0.86 or 30% predicted. The patient continues to smoke. She was evaluated by [place] Berger on June 20, 2018. He noted severe COPD likely secondary continued tobacco use and morbid obesity. He recommended albuterol, smoking cessation and oxygen as necessary She has been evaluated by Dr. Marcelino Agarwal on July 18, 2018 with a complaint of dyspnea on exertion. He felt her dyspnea on exertion symptoms are due to obesity and severe lung disease along with severe deconditioning. He does not see any signs of pulmonary hypertension but feels given her situation she is a set up for pickwickian syndrome in the future. 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 - ORAL SURGERY PROCEDURE teeth removed - PAST SURGICAL HISTORY OF TM tubes - REMOVAL OF TONSILS,<14 Y/O Tonsillectomy - TUBAL LIGATION Current Outpatient Prescriptions: acetaminophen (TYLENOL) 500 mg tablet EVERY 6 HOURS NEEDED albuterol (PROVENTIL) 2.5 mg /3 mL (0.083 %) nebulizer solution Use 3 mL via nebulizer every 4 hours as needed for Wheezing/Shortness of Breath. Use over 5-15minutes. albuterol HFA (VENTOLIN HFA) 90 mcg/actuation inhaler Inhale 2 Puffs as instructed every 6 hours as needed for Wheezing/Shortness of Breath. B Complex Vitamins capsule TAKE ONE CAPSULE BY MOUTH EVERY DAY Cholecalciferol, Vitamin D3, (VITAMIN D) 1,000 unit cap Take 1,000 Units by mouth once daily. citalopram (CELEXA) 40 mg tablet Take 1 tablet by mouth once daily. COMPOUNDED PRESCRIPTION Home oxygen : 3 Litre per minute with exercise and at hours of sleep via nasal canula with conserving device Associated diagnosis : COPD dicyclomine (BENTYL) 10 mg capsule Take 2 capsules by mouth three times daily as needed. fluticasone (FLONASE) 50 mcg/actuation nasal spray Use 2 Sprays in each nostril once daily. Rinse mouth after use. guaiFENesin (ROBITUSSIN) 100 mg/5 mL syrup Take 10 mL by mouth four times daily as needed for Cough. guaiFENesin-dextromethorphan (ROBITUSSIN DM) 100-10 mg/5 mL syrup Take 10 mL by mouth every 6 hours as needed for Cough. lidocaine (LIDODERM) 5 % Apply 1 Patch as directed every 24 hours. loratadine (CLARITIN) 10 mg tablet Take 1 tablet by mouth once daily as needed. FOR ALLERGY SYMPTOMS meloxicam (MOBIC) 15 mg tablet TAKE ONE TABLET BY MOUTH ONCE DAILY WITH FOOD multivitamin tablet Take 1 tablet by mouth once daily. nicotine (NICODERM) 21 mg/24 hr Apply 1 Patch as directed every 24 hours. omeprazole (PRILOSEC) 20 mg capsule Take 1 capsule by mouth twice daily before meals. 1/2 hr before meal. simethicone, chewable (MYLICON) 80 mg chewable tablet Take 1 tablet by mouth every 6 hours as needed. SYMBICORT 160-4.5 mcg/actuation inhaler Inhale 2 Puffs into the lungs as instructed twice daily. vitamin b complex (B COMPLETE) tab Take 1 tablet by mouth once daily. HYDROcodone-acetaminophen (NORCO) 5-325 mg per tablet Take 1 tablet by mouth every 8 hours as needed for up to 3 days.Earliest Fill Date: 10/31/18 No current facility-administered medications for this visit. ALLERGIES: Seasonal Allergies; Penicillins PERSONAL HISTORY: Social History Marital status: Spouse name: Years of education: Number of children: Occupational History Occupation Employer Comment unemployed, disabi* Social History Main Topics Smoking status: Current Some Day Smoker Packs/day: 0.50 Years: 15.00 Types: Cigarettes Start date: 1994 Smokeless tobacco: Never Used Alcohol use: No Comment: rare wine cooler- not while Drug use: No Sexual activity: Yes Partners with: Male control/protection: None Social History Narrative Mother 2011. Father needs her help. 2 sons. FAMILY HISTORY: FAMILY HISTORY Problem Relation Age of Onset - Diabetes Father - Hypertension Mother - Cancer Mother liver cancer - other (osteoarthritis) Mother - Heart Maternal Grandmother - Cancer Maternal Grandmother - Diabetes Paternal Grandfather - Prostate Cancer Paternal Grandfather - Stroke Paternal Grandmother - Heart Sister hole in heart - Breast Cancer Sister - other (osteochondroma) Son - other (osteochondroma) Son - Emphysema Maternal Aunt - COPD Maternal Aunt REVIEW OF SYMPTOMS: The review of systems data was entered by the nurse and reviewed by ak Nursing Notes: Corine Rousseau LPN 10/31/2018 2:28 PM Signed REVIEW OF SYSTEMS: General: The patient NOTES fatigue, denies weight loss, denies weight gain, denies feeling hot, and denies feelings of cold. Eyes: The patient denies glaucoma, denies eye injury/surgery, wears glasses or contacts. Ear/Nose/Throat: The patient NOTES allergies, denies hayfever, denies ear infections, and denies bloody noses. Cardiovascular: The patient denies chest pain, denies heart disease, denies high blood pressure,denies cardiac stent, denies prior heart attack, denies irregular heart beat, denies high cholesterol, NOTES poor circulation, denies heart failure, other cardiac issues, denies claudication, denies cold feet, denies peripheral arterial stent. Respiratory: The patient denies tuberculosis, denies pneumonia, NOTES frequent cough, denies pulmonary embolism, denies shortness of breath, and denies coughing up blood. Gastrointestinal: The patient denies difficulty swallowing, denies acid reflux, denies ulcers, denies vomiting, denies jaundice/hepatitis, denies gallbladder problems, denies black or tarry stools, denies hemorrhoids, denies bleeding from rectum, denies diverticulitis, denies constipation, denies diarrhea, denies loss of stool control, and NOTES hernias. Kidney/Bladder: The patient denies kidney stones, denies urine infections, and denies bloody urine. Skin: The patient denies a history of skin cancer, denies bleeding/changing moles, and denies a history of skin rash. Neurologic: The patient denies a history of epilepsy/convulsions, NOTES headaches, denies head/spinal injuries, and denies stroke/TIA. Psychiatric: The patient denies psychiatric medications, NOTES depression, and denies voices, denies substance abuse. Endocrine: The patient denies thyroid disorders, denies diabetes, and denies hormonal problems. Hematologic: The patient NOTES a history of bruising, denies bleeding, and denies anemia, denies blood clots. Infections: The patient denies a history of measles and mumps, denies rheumatic fever, and denies sexually transmitted diseases. Musculoskeletal: The patient denies back pain/injury, NOTES back problems, denies sciatica, denies knee/foot trouble, NOTES arthritis, or denies gout. When was patient's last Mammogram screening? N/A Last Colonoscopy: none Corine Rousseau LPN PHYSICAL EXAMINATION: General: The patient is 37 year old female, well nourished, well hydrated in no acute distress. Super Morbidly obese. The patient is oriented to time, place, and person. VITALS: Blood pressure 114/62, pulse 97, temperature 36.2 ?C (97.2 ?F), temperature source Temporal Artery, height 154.9 cm (5' 1), weight 128 kg (282 lb 3.2 oz), last menstrual period 10/19/2018, SpO2 96 %. Body mass index is 53.32 kg/m?. HEENT: Normal cephalic, ataumatic, pupils are equally round, sclera are anicteric, mucous membranes are moist, oropharynx is clear. Neck has no masses, asymmetry or lymphadenopathy. Thyroid is unremarkable. Respiratory: Coarse breath sounds throughout, decreased breath sounds at the bases, wheezes and musical tones throughout. Tender on both right and left costal margins with palpation Cardiac: Examination is regular rate and rhythm. Abdominal exam: Morbidly obese. Soft, nontender in the epigastric right and left upper quadrants were not pressing on the costal margins, with no palpable masses. No hepatosplenomegaly. The patient has a degree of upper abdominal diastases recti which is nontender A small, reducible lower midline incisional hernia is palpable consistent with the findings on CT scan. Rectal exam: exam deferred Extremities: no clubbing, cyanosis or edema. No adenopathy. Other: LABORATORY VALUES: As Noted RADIOLOGIC STUDIES: As Noted Assessment IMPRESSION: prior lower abdominal incisional hernia, super morbid obesity, pulmonary function test and clinically severe COPD, high risk for hernia repair, PLAN: . I discussed with the patient given the fact that she apparently had significant lung problems since now has clinically worsening lung problems in addition to her morbid obesity and continues to smoke that my first recommendation is she quit smoking before any attempt at hernia repair. I discussed with the patient that her pulmonary function tests given her age have risks for lung issues and longevity way beyond just repair of the hernia. All tobacco/nicotine use needs to be completely stopped at least 4 weeks prior to surgery and not used in any form for 8 weeks following surgery due to nicotine's prevention of appropriate wound healing The patient presented to me the opinion that her significant other had a surgical procedure and smoked more than she did. We further discussed the risks that nicotine use poses for hernia repair. Given the fact she has multiple risk factors for hernia recurrence including steroid use chronic cough and obesity I highly recommended smoking cessation prior to any procedures when I evaluated the patient last year, prior to learning how severe her pulmonary disease is. The patient became frustrated and stated that there is no way she can quit smoking given the stresses in her life raising children etc. I again tried to explain the severe nature of her lung issues and her likely outcomes for both surgery and chronic pulmonary complications given her lung function. I again reiterated I would not repair her hernia until she would quit smoking. In reviewing the pulmonary function testing I'm not certain that my local anesthesiologist would consider repairing her hernias given her FEV1. She again reiterated that she is in pain and needs to have something done for this. My findings have been communicated to Dr. Tona Herrera via shared medical record. This note will be forwarded to Dr. Juany Holt MD. Diagnoses: (K43.2) Incisional hernia, without obstruction or gangrene (primary encounter diagnosis) (F17.200) Tobacco use disorder Return to Clinic: The patient is instructed to follow-up with me as needed. Karthik Chan MD Referring Provider: SELF [[id number]] Allergies As of Date: 10/31/2018 Noted Allergy Reaction SEASONAL ALLERGIES 05/04/2013 5 - Intolerance PENICILLINS 02/11/2007 2 - Rash 11 - Vomiting Comments: JUST SENSITIVITY TO PCN PER DR FAJARDO Date Reviewed: 10/31/2018 Reviewed by: Ccee MercadoRn) TONY Johnson - Fully Assessed Reason for Visit: Consult [173] Cmt: Consult Pelvic wall hernia Primary Visit Diagnosis:Incisional hernia, without obstruction or gangrene [K43.2] Other Visit Diagnosis:Tobacco use disorder [F17.200] Prescriptions as of 10/31/2018 Sig: ACETAMINOPHEN 500 MG TABLET EVERY 6 HOURS NEEDED ALBUTEROL SULFATE 2.5 MG/3 ML* Use 3 mL via nebulizer every * ALBUTEROL SULFATE HFA 90 MCG/* Inhale 2 Puffs as instructed * VITAMIN B COMPLEX CAPSULE TAKE ONE CAPSULE BY MOUTH YOLY* CHOLECALCIFEROL (VITAMIN D3) * Take 1,000 Units by mouth onc* CITALOPRAM 40 MG TABLET Take 1 tablet by mouth once d* COMPOUNDED PRESCRIPTION Home oxygen : 3 Litre per min* DICYCLOMINE 10 MG CAPSULE Take 2 capsules by mouth thre* FLUTICASONE 50 MCG/ACTUATION * Use 2 Sprays in each nostril * GUAIFENESIN 100 MG/5 ML ORAL * Take 10 mL by mouth four time* DEXTROMETHORPHAN-GUAIFENESIN * Take 10 mL by mouth every 6 h* LIDOCAINE 5 % TOPICAL PATCH Apply 1 Patch as directed yoly* LORATADINE 10 MG TABLET Take 1 tablet by mouth once d* MELOXICAM 15 MG TABLET TAKE ONE TABLET BY MOUTH ONCE* MULTIVITAMIN TABLET Take 1 tablet by mouth once d* NICOTINE 21 MG/24 HR DAILY TR* Apply 1 Patch as directed yoly* OMEPRAZOLE 20 MG CAPSULE,GHASSAN* Take 1 capsule by mouth twice* SIMETHICONE 80 MG CHEWABLE TA* Take 1 tablet by mouth every * SYMBICORT 160 MCG-4.5 MCG/ACT* Inhale 2 Puffs into the lungs* VITAMIN B COMPLEX TABLET Take 1 tablet by mouth once d* Problem List As Of Date 10/31/2018 Noted Resolved Pulpitis [K04.01] INVALID FOR* OTHER LUNG DISEASE NEC [J98.4] INVALID FOR*03/09/2008 Tobacco use disorder [F17.200] INVALID FOR* More... Acute Bronchitis [J20.9] INVALID FOR* Chronic Airway Obstruction, not Elsewhere Class*INVALID FOR* Morbid obesity [E66.01] More... Back pain [M54.9] More... Osteochondroma, multiple [Q78.6] More... Asthma [J45.909] Depression with anxiety [F41.8] Asthma exacerbation [J45.901] INVALID FOR* SOB (shortness of breath) [R06.02] INVALID FOR* Fibromyalgia [M79.7] INVALID FOR* More... History of section [Z98.891] INVALID FOR* More... Obesity in [O99.210] INVALID FOR*03/07/2018 More... Supervision of normal [Z34.90] INVALID FOR*03/07/2018 Family history of seizure disorder [Z82.0] INVALID FOR* More... Encounter for sterilization [Z30.2] INVALID FOR* More... cardiac anomaly affecting , ante*INVALID FOR*03/07/2018 [Z34.90] INVALID FOR*03/07/2018 COPD exacerbation (HCC) [J44.1] INVALID FOR*03/24/2018 More... Obesity, Class III, BMI >= 40 E66.01 [E66.01] INVALID FOR* Healthcare maintenance [Z00.00] INVALID FOR*03/24/2018 More... On home O2 [Z99.81] INVALID FOR* Visit Notes: >> Corine Rousseau LPN SatOct 31, 2018 2:25 PM Status: Signed REVIEW OF SYSTEMS: General: The patient NOTES fatigue, denies weight loss, denies weight gain, denies feeling hot, and denies feelings of cold. Eyes: The patient denies glaucoma, denies eye injury/surgery, wears glasses or contacts. Ear/Nose/Throat: The patient NOTES allergies, denies hayfever, denies ear infections, and denies bloody noses. Cardiovascular: The patient denies chest pain, denies heart disease, denies high blood pressure,denies cardiac stent, denies prior heart attack, denies irregular heart beat, denies high cholesterol, NOTES poor circulation, denies heart failure, other cardiac issues, denies claudication, denies cold feet, denies peripheral arterial stent. Respiratory: The patient denies tuberculosis, denies pneumonia, NOTES frequent cough, denies pulmonary embolism, denies shortness of breath, and denies coughing up blood. Gastrointestinal: The patient denies difficulty swallowing, denies acid reflux, denies ulcers, denies vomiting, denies jaundice/hepatitis, denies gallbladder problems, denies black or tarry stools, denies hemorrhoids, denies bleeding from rectum, denies diverticulitis, denies constipation, denies diarrhea, denies loss of stool control, and NOTES hernias. Kidney/Bladder: The patient denies kidney stones, denies urine infections, and denies bloody urine. Skin: The patient denies a history of skin cancer, denies bleeding/changing moles, and denies a history of skin rash. Neurologic: The patient denies a history of epilepsy/convulsions, NOTES headaches, denies head/spinal injuries, and denies stroke/TIA. Psychiatric: The patient denies psychiatric medications, NOTES depression, and denies voices, denies substance abuse. Endocrine: The patient denies thyroid disorders, denies diabetes, and denies hormonal problems. Hematologic: The patient NOTES a history of bruising, denies bleeding, and denies anemia, denies blood clots. Infections: The patient denies a history of measles and mumps, denies rheumatic fever, and denies sexually transmitted diseases. Musculoskeletal: The patient denies back pain/injury, NOTES back problems, denies sciatica, denies knee/foot trouble, NOTES arthritis, or denies gout. When was patient's last Mammogram screening? N/A Last Colonoscopy: none Corine Rousseau LPN Follow-up and Disposition History Recorded Encounter Status:Closed by KARTHIK CHAN MD on 11/01/18 EMERGENCY DEPARTMENT Observed: 10/30/2018 Status: F Source: [place] SUMMARY 11:19 PM [facility] [place] [facility] Medical Records Department [address] [place] [address] Emergency Department Summary 10/30/18 2214 MR#: [id number] Acct: [id number] Name: YOBANY LONDONO Rep #: [id number] : 1980 38 From: Sissy Herrera MD PCP: Juany Holt MD Status: DEP ER - ER Visit Summary Date of Service: 10/30/18 Chief Complaint: [] Pain over her incision for 3 years History of Present Illness: The patient is a 38 F [] reports that history for 3 years she is scheduled to see Dr. Delaney tomorrow, she has been told that she may require revision of that incision or that there may be a hernia there she has been told that because of her weight any type of surgery would be complicated she went from weighing over 300 pounds to 280 pounds and now she is going to see Dr. Delaney tomorrow she indicates her children her have been bouncing on her abdomen slightly she had more intense pain today and she came in for evaluation, the pain that she has had is the same pain she has had for 3 years it is not different anyway she is eating and drinking well bowel and bladder habits are normal, She points directly over the midportion of the old incision is a focus area of her pain Physical Examination: [] 135/80 afebrile General, no distress resting comfortably HEENT is generally unremarkable The neck is supple no adenopathy Cardiovascular, regular rate and rhythm Lungs, clear bilateral Abdomen, soft nontender, she has some discomfort directly over the central portion of the incision, this area is very nodular and ropelike but there is no warmth no obvious defect no obvious hernia no redness no signs of infection, she can point to almost one fingertip area of discomfort Extremities, no clubbing cyanosis or edema Neurologic, awake alert answering questions appropriately moving all 4 extremities Test Results: [] Emergency Department Course and Treatment: [] Long conversation with the patient she assures me her bowel and bladder habits been normal this is a chronic ongoing condition it exacerbated tonight we discussed ED workup with labs x-rays etc. she declined that since she simply wanted something for the pain, she indicated she did take a Robaxin tablet her sister had and that helped relax her stomach in itself actually feeling better I explained to her that one we will give her [place] here x1 dose, I will give her Robaxin 500 mg 2 tablets only to use as a rescue medicine tomorrow and have her follow-up with her appointments as scheduled and return for change in symptoms and she is comfortable with this plan Treatment Plan: [] Disposition: [] Home stable Impression: [] Acute recurrent pain related to incision This note was generated with [employer] dictation software. It may contain incorrect words, spelling, and punctuation that were not noted in review of the chart prior to signing ED Disposition - Plan for ED Patient: Chief Complaint: Abd Pain Referrals: Juany Holt MD [Primary Care Provider] - What to do if you have Problems For any increased pain, shortness of breath, bleeding, nausea or vomiting, chest pain, or any unexpected problems, contact your Primary Care Provider. Call [facility] ([phone]) or report to the closest Emergency Room. Call 911 if necessary. 10/30/18 2319 <Electronically signed by Sissy Herrera MD> Date Sissy Herrera MD Cosigner Signature (If Indicated): Date CC: Juany Holt MD DISCHARGE INSTRUCTION Observed: 10/30/2018 Status: F Source: [place] 10:18 PM [facility] [place] [facility] Medical Records Department [address] [place] [address] Discharge Instruction 10/30/18 2216 MR#: [id number] Acct: [id number] Name: YOBANY LONDONO Rep #: [id number] : 1980 38 From: Sissy Herrera MD PCP: Juany Holt MD Status: PRE ER ED Disposition - Plan for ED Patient: Chief Complaint: Abd Pain Instructions: ED Abdominal Pain Unkn Cause Prescriptions: Methocarbamol [Robaxin] 500 mg PO BID #2 tab Referrals: Juany Holt MD [Primary Care Provider] - Additional Instructions: Keep all of your appointments including her appointment tomorrow What to do if you have Problems For any increased pain, shortness of breath, bleeding, nausea or vomiting, chest pain, or any unexpected problems, contact your Primary Care Provider. Call [facility] ([phone]) or report to the closest Emergency Room. Call 911 if necessary. 10/30/18 2218 <Electronically signed by Sissy Herrera MD> Date Sissy Herrera MD Cosigner Signature (If Indicated): Date CC: Juany Holt MD EMERGENCY DEPARTMENT Observed: 10/04/2018 Status: F Source: [place] SUMMARY 12:55 AM [facility] [place] [facility] Medical Records Department [address] [place] [address] Emergency Department Summary 10/03/181955 MR#: [id number] Acct: [id number] Name: YOBANY LONDONO Rep #: [id number] : 1980 38 From: Dariel Coronel MD PCP: Juany Holt MD Status: DEP ER - ER Visit Summary Date of Service: 10/03/18 Chief Complaint: Hernia History of Present Illness: The patient is a 38 F with upper and lower abdominal pain. Patient has a history of hernia and is planning to follow-up with Dr. Delaney later in the month. She was seen recently in this emergency department and required reduction of her hernia. She reports similar pain today, but denies any other symptoms like nausea, vomiting, or difficulty passing gas. No fevers or urinary symptoms. Physical Examination: Patient is afebrile and vital signs are unremarkable. She is nontoxic and in no acute distress. Heart regular rate and rhythm. Lungs clear. Abdomen soft and nontender. Normal bowel sounds. No palpable masses. Test Results: X-rays were unremarkable. No obstructive pattern. Labs unremarkable. Emergency Department Course and Treatment: Patient treated with fluids, morphine, and Zofran while awaiting results. On exam, I do not appreciate a hernia. Her exam is fairly unremarkable. Her x-rays do not show signs of obstruction or any other acute abnormality. Her labs are reassuring. Patient will be discharged to follow-up as an outpatient. Return for any new or worsening issues. Treatment Plan: As above Disposition: Discharged Impression: 1. Abdominal pain This note was generated with [employer] dictation software. It may contain incorrect words, spelling, and punctuation that were not noted in review of the chart prior to signing ED Disposition - Plan for ED Patient: Chief Complaint: Abd Pain Referrals: Juany Holt MD [Primary Care Provider] - What to do if you have Problems For any increased pain, shortness of breath, bleeding, nausea or vomiting, chest pain, or any unexpected problems, contact your Primary Care Provider. Call [facility] ([phone]) or report to the closest Emergency Room. Call 911 if necessary. 10/04/18 0055 <Electronically signed by Dariel Coronel MD> Date Dariel Coronel MD Cosigner Signature (If Indicated): Date CC: Juany Hotl MD DISCHARGE INSTRUCTION Observed: 10/04/2018 Status: F Source: [place] 12:55 AM [facility] Medical Records Department [address] [place] [address] Discharge Instruction 10/03/181956 MR#: [id number] Acct: [id number] Name: YOBANY LONDONO Rep #: [id number] : 1980 38 From: Dariel Coronel MD PCP: Juany Holt MD Status: [facility] ED Disposition - Plan for ED Patient: Chief Complaint: Abd Pain Instructions: ED Abdominal Pain Unkn Cause Referrals: Karthik Chan MD [STAFF PHYSICIAN] - What to do if you have Problems For any increased pain, shortness of breath, bleeding, nausea or vomiting, chest pain, or any unexpected problems, contact your Primary Care Provider. Call [facility] ([phone]) or report to the closest Emergency Room. Call 911 if necessary. 10/04/18 0055 <Electronically signed by Dariel Coronel MD> Date Dariel Coronel MD Cosigner Signature (If Indicated): Date CC: Juany Holt MD CBC W/DIFF, AUTOMATED Collected: 10/03/2018 Status: F Source: [place] 5:40 PM [facility] [place] TYPE CODE TESTS RESULT OUT OF RANGE REFERENCE UNITS LAB L100.1000 4.4-11.0 K/mm3 Normal WBC 10.3 LAB L100.1200 4.2-5.4 M/mm3 Normal RBC 4.82 LAB L100.1300 12.0-15.0 g/dl Normal HGB 13.4 LAB L100.1400 37-47 % Normal HCT 44.7 LAB L100.1500 81-99 fL Normal MCV 92.7 LAB L100.1600 27.0-32.0 pg Normal MCH 27.8 LAB L100.1700 32-36 g/gl Low MCHC 30.0 LAB L100.1810 11.6-14.6 % Normal RDW CV 14.6 LAB L100.1820 35.1-43.9 fl High RDW SD 49.2 LAB L100.1900 150-450 K/mm3 Normal PLT 246 LAB L100.2000 6.2-12.0 fl Normal MPV 11.7 LAB L100.2100 47-70 % Normal NEUT% 66.8 LAB L100.2200 19-41 % Normal LY% 24.8 LAB L100.2300 0-10 % Normal MONO% 6.2 LAB L100.2400 0-5 % Normal EO% 1.7 LAB L100.2500 0-1 % Normal BASO% 0.4 LAB L100.2550 0.0-0.9 % Normal IM GRAN % 0.100 Result Comment: IG% - Immature Granulocytes (promyelocytes, myelocytes and metamyelocytes) > 1% indicates that a LEFT SHIFT is Present. LAB L100.2620 2.0-7.7 X10 3/uL Normal Absolute Neut 6.9 LAB L100.2720 0.83-4.51 X10 3/ul Normal Absolute Lymph 2.55 Performed By: #### L100.0100 #### [facility] [address] [place], [place], [address] BASIC METABOLIC Collected: 10/03/2018 Status: F Source: [place] PROFILE (BMP) 5:40 PM [facility] [place] [facility] TYPE CODE TESTS RESULT OUT OF RANGE REFERENCE UNITS LAB L501.0100 74-106 mg/dL Normal GLU 95 Result Comment: Please note revised GLUCOSE reference range effective 2017. LAB L501.1000 7-18 mg/dL Normal BUN 15 LAB L501.1100 0.55-1.02 mg/dL Normal CREAT,SERUM 0.75 Result Comment: The validity of the calculated GFR AND GFRAA in patients over 70 years has not been determined. Clinical correlation is essential. LAB L501.1110 >60 mL/min Normal EST GFR 93 Result Comment: Non- GFR Calc LAB L501.1115 >60 mL/min Normal EST GFR - AA 113 Result Comment: GFR Calc LAB L501.1255 ml/min Normal Estimated CRCL 78.25 LAB L501.1300 10-20 RATIO High BUN/CRE 20.1 LAB L501.2200 8.5-10 mg/dL Low .1 CA 8.3 LAB L501.5300 136-14 mmol/L Normal 5 NA 141 LAB L501.5600 3.5-5. mmol/L Normal 1 K 4.2 LAB L501.5900 98-107 mmol/L Normal CL 105 LAB L501.6100 21.0-3 mmol/L High 2.0 CO2 34.0 LAB L501.6200 5-15 Low GAP 2 Performed By: #### L500.2500 #### [facility] [address] [place], [place], [address] ACUTE ABDOMEN INC Observed: 10/03/2018 Status: F Source: [place] CHEST 5:24 PM [facility] [place] [facility] Imaging Services [address] [place] [address] Acute Abdomen Inc Chest MR#: [id number] Acct: [id number] Name: YOBANY LONDONO Rep #: [id number] : 1980 F 38 From: Liliam Frazier MD PCP: Juany Holt MD Status: REG ER Study: Acute Abdomen Inc Chest Date of Exam: 10/03/18 Exam# [id number] Ordering Dr: Dariel Coronel MD STUDY: X-RAY - ACUTE ABDOMINAL SERIES REASON FOR EXAM: Female, 38 years old. Abdominal pain TECHNIQUE: Single view of the chest. Supine, and erect view(s) of the abdomen were obtained. COMPARISON: Abdomen radiographs and CT abdomen and pelvis dated September 27, 2018; chest radiographs dated September 27, 2018 and April 12, 2018 FINDINGS: The lungs are adequately expanded. There are no focal airspace opacities. There is no demonstrated pleural abnormality. The cardiac silhouette is normal in size. No significant abnormalities are seen in the mediastinum and hilar regions. The pulmonary arteries are unremarkable. The thoracic aorta is unremarkable. The bowel gas pattern is unremarkable. There is no demonstrated abnormality of the major organs. There is stable deformity of a lower left rib along the anterior margin. There is a stable calcific density projected over the mid left lung, possibly rib related. RAD/Acute Abdomen Inc Chest IMPRESSION: No acute abnormalities are seen in the chest, abdomen or pelvis. Electronically Signed: Liliam Frazier MD at 19:18 EST Tel Direct: [phone], Service support , CC: Dariel Coronel MD; Juany Holt MD Conference Planner: Signed EMERGENCY DEPARTMENT Observed: 09/27/2018 Status: F Source: [place] SUMMARY 11:59 PM [facility] [place] [facility] Medical Records Department [address] [place] [address] Emergency Department Summary 09/27/183 MR#: [id number] Acct: [id number] Name: YOBANY LONDONO Rep #: [id number] : 1980 38 From: Abdirashid Monsalve MD PCP: Juany Holt MD Status: DEP ER - ER Visit Summary Date of Service: 09/27/18 Chief Complaint: Abdominal pain. History of Present Illness: The patient is a 38 F presenting for evaluation secondary to abdominal pain. Patient reports that over the course of the last 2 weeks she has been dealing with abdominal pain. She reports that over the course of the last week there is been getting progressively worse. Typically is located on the left side of her abdomen but will be diffuse and crampy on occasion. It is worse with coughing. It has been associated with bouts of nausea and vomiting about 2 weeks ago that seemed to have resolved. Patient reports that she is not having any sort of diarrhea constipation or fevers. Patient saw her primary care physician about a week ago and was increased on her omeprazole and her gas pill as they thought that this was the issue. She denies any urinary or vaginal complaints. Physical Examination: Vital signs are within normal limits, patient is afebrile. General: Patient is well-nourished well-developed and in no acute distress. Head: Normocephalic, atraumatic Eyes: Pupils equal round and reactive bilaterally, extra occular motion intact bialterally ENT: Moist mucous membranes Neck: Supple, no lymphadenopathy, no JVD, no meningismus CVS: Heart regular rate and rhythm, no murmurs, rubs or gallops, radial pulses 2+ bilaterally Resp: Respirations nondistressed, some wheezes and rales bilaterally with no respiratory distress Abdomen: Soft, tender in the left lower and left upper quadrants without guarding or rebound tenderness, nondistended, no palpable masses, normal bowel sounds Back: Nontender Extremities: Nontender, atraumatic, active full range of motion, no peripheral edema Skin: warm, no rashes, no petechia Neuro: Alert and oriented x 4, CN 2-12 intact, no lateralizing neurological defecits Psyc: Normal affect Test Results: CT abdomen and pelvis shows a potential low- grade bowel obstruction with an incarcerated pelvic wall hernia, CBC chemistry urinalysis unremarkable Emergency Department Course and Treatment: Patient presented with persistent abdominal pain. She did have reproducible pain on exam so the lab work and imaging were obtained. Workup as noted above showed a hernia in the patient's pelvis. Patient has no evidence of acidosis or elevated anion gap, and I reviewed the images and it does not seem like there is a significant inflammatory changes around this. I went back and did a repeat evaluation of the patient. Pushing just above the patient's pubic symphysis on deep palpation I was able to palpate the hernia, and I was able to directly reduce this. Patient had improvement of her pain. An abdominal x-ray was obtained which shows no evidence of bowel obstruction. Patient will be discharged with outpatient follow-up with general surgery. Disposition: Discharge Impression: 1. Pelvic wall hernia 2. Manual hernia reduction by ED physician This note was generated with [employer] dictation software. It may contain incorrect words, spelling, and punctuation that were not noted in review of the chart prior to signing ED Disposition - Plan for ED Patient: Disposition: Home or Assisted Living Chief Complaint: Abd Pain Diagnosis: Hernia Instructions: What Is a Hernia? Prescriptions: Docusate Sodium [Colace] 100 mg PO DAILY #30 cap Referrals: Karthik Chan MD [STAFF PHYSICIAN] - 1-2 Weeks What to do if you have Problems For any increased pain, shortness of breath, bleeding, nausea or vomiting, chest pain, or any unexpected problems, contact your Primary Care Provider. Call [facility] ([phone]) or report to the closest Emergency Room. Call 911 if necessary. 09/27/18 8461 <Electronically signed by Abdirashid Monsalve MD> Date Abdirashid Monsalve MD Cosigner Signature (If Indicated): Date CC: Juany Holt MD ABDOMEN SINGLE VIEW Observed: 09/27/2018 Status: F Source: [place] (PORTABLE) 7:54 PM [facility] [place] [facility] Imaging Services [address] [place] [address] Abdomen Single View (Portable) MR#: [id number] Acct: [id number] Name: YOBANY LONDONO Rep #: [id number] : 1980 F 38 From: Sg Brady MD PCP: Juany Holt MD Status: DEP ER Study: Abdomen Single View (Portable) Date of Exam: 09/27/18 Exam# [id number] Ordering Dr: Abdirashid Monsalve MD STUDY: X-RAY - ABDOMEN/PELVIS REASON FOR EXAM: Female, 38 years old. Status post hernia reduction TECHNIQUE: Two AP supine views of the abdomen and pelvis. COMPARISON: None. FINDINGS: Normal visualized lung bases. There are several mildly distended air-filled loops of small bowel in the left mid to lower abdomen. There is no demonstrated free abdominal air. The visualized liver, spleen and kidneys are grossly normal in size and morphology. Normal soft tissue structures. Normal visualized osseous structures. RAD/Abdomen Single View (Portable) IMPRESSION: Several mildly distended air-filled loops of small bowel in the left mid to lower abdomen. If clinically indicated, follow-up CT of the pelvis may be helpful for further evaluation. Electronically Signed: Sg Brady MD at 22:17 EST , Service support , CC: Juany Holt MD; Abdirashid Monsalve Conference Planner: Signed URINALYSIS, COMPLETE Collected: 09/27/2018 Status: F Source: [place] 6:10 PM [facility] [place] [facility] Order Comment: How was Urine Obtained? CLEAN CATCH TYPE CODE TESTS RESULT OUT OF RANGE REFERENCE UNITS LAB L400.3000 Yellow COLOR Normal Yellow LAB L400.3050 Clear Sl Normal CLARITY Cloudy LAB L400.3200 Normal mg/dl Normal GLUCOSE, UR Normal LAB L400.3300 Negative mg/dL Normal BILIRUBIN URINE Negative LAB L400.3400 Negative mg/dl Normal KETONE UR Negative LAB L400.3465 1.002-1.030 Normal SP.GR. DIPSTX 1.010 LAB L400.3550 5.0 - 8.0 pH UR Normal 8.0 LAB L400.3600 Negative mg/dl PROT Normal DIPSTX Negative LAB L400.3700 Normal mg/dl High 1 UROBILI LAB L400.3750 Negative Normal NITRITE UR Negative LAB L400.3780 Negative /ul High 25 OCCULT BLOOD-UR LAB L400.3800 Negative /ul LEUK Normal ESTERASE Negative LAB L400.4050 0-5 /hpf WBC 0 Normal SEEN LAB L400.4100 0-5 /hpf 0 Normal RBC-UA SEEN LAB L400.4150 5-10 /hpf SQUAM Normal EPI 0-5 SEEN LAB L400.4300 None Seen /hpf 0 Normal BACTERIA SEEN LAB L400.4350 <or=2+ /hpf 0 Normal MUCUS, URINE SEEN Performed By: #### L400.0001 #### [facility] [address] [place], [place], [address] ,URINE Collected: 09/27/2018 Status: F Source: [place] 6:10 PM [facility] [place] [facility] TYPE CODE TESTS RESULT OUT OF REFERENCE UNITS RANGE LAB L400.8000 Negative Normal HCGUQUAL Negative Result Comment: Very dilute urine specimens, as indicated by a low specific gravity, may not contain patient relations representative levels of hCG. If is still suspected, a first morning urine specimen should be collected 48 hours later and tested. Performed By: #### L400.7600 #### [facility] [address] [place], [address] CBC W/DIFF, AUTOMATED Collected: 09/27/2018 Status: F Source: [place] 6:06 PM [facility] [place] [facility] TYPE CODE TESTS RESULT OUT OF RANGE REFERENCE UNITS LAB L100.1000 4.4-11.0 K/mm3 Normal WBC 11.0 LAB L100.1200 4.2-5.4 M/mm3 Normal RBC 4.90 LAB L100.1300 12.0-15.0 g/dl Normal HGB 13.6 LAB L100.1400 37-47 % Normal HCT 44.9 LAB L100.1500 81-99 fL Normal MCV 91.6 LAB L100.1600 27.0-32.0 pg Normal MCH 27.8 LAB L100.1700 32-36 g/gl Low MCHC 30.3 LAB L100.1810 11.6-14.6 % Normal RDW CV 14.5 LAB L100.1820 35.1-43.9 fl High RDW SD 47.6 LAB L100.1900 150-450 K/mm3 Normal PLT 276 LAB L100.2000 6.2-12.0 fl Normal MPV 11.5 LAB L100.2100 47-70 % Normal NEUT% 62.6 LAB L100.2200 19-41 % Normal LY% 29.1 LAB L100.2300 0-10 % Normal MONO% 5.4 LAB L100.2400 0-5 % Normal EO% 1.8 LAB L100.2500 0-1 % Normal BASO% 0.8 LAB L100.2550 0.0-0.9 % Normal IM GRAN % 0.300 Result Comment: IG% - Immature Granulocytes (promyelocytes, myelocytes and metamyelocytes) > 1% indicates that a LEFT SHIFT is Present. LAB L100.2620 2.0-7.7 X10 3/uL Normal Absolute Neut 6.9 LAB L100.2720 0.83-4.51 X10 3/ul Normal Absolute Lymph 3.19 Performed By: #### L100.0100 #### [facility] [address] [place], [address] BASIC METABOLIC Collected: 09/27/2018 Status: F Source: [place] PROFILE ([facility]) 6:06 PM [facility] [place] [facility] TYPE CODE TESTS RESULT OUT OF RANGE REFERENCE UNITS LAB L501.0100 74-106 mg/dL Normal GLU 86 Result Comment: Please note revised GLUCOSE reference range effective 2017. LAB L501.1000 7-18 mg/dL Normal BUN 9 LAB L501.1100 0.55-1.02 mg/dL Normal CREAT,SERUM 0.67 Result Comment: The validity of the calculated GFR AND GFRAA in patients over 70 years has not been determined. Clinical correlation is essential. LAB L501.1110 >60 mL/min Normal EST GFR 106 Result Comment: Non- GFR Calc LAB L501.1115 >60 mL/min Normal EST GFR - AA 129 Result Comment: GFR Calc LAB L501.1255 ml/min Normal Estimated CRCL 87.59 LAB L501.1300 10-20 RATIO Normal BUN/CRE 13.5 LAB L501.2200 8.5-10 mg/dL Normal .1 CA 8.8 LAB L501.5300 136-14 mmol/L Normal 5 NA 137 LAB L501.5600 3.5-5. mmol/L Normal 1 K 3.6 LAB L501.5900 98-107 mmol/L Normal CL 100 LAB L501.6100 21.0-3 mmol/L High 2.0 CO2 34.0 LAB L501.6200 5-15 Low GAP 3 Performed By: #### L500.2500 #### [facility] [address] [place], [address] CHEST PA AND LATERAL Observed: 09/27/2018 Status: F Source: [place] 5:36 PM [facility] [place] [facility] Imaging Services [address] [place] [address] Chest PA and Lateral MR#: [id number] Acct: [id number] Name: YOBANY LONDONO Rep #: [id number] : 1980 F 38 From: Sg Brady MD PCP: Jonathon MOSES,Juany Status: REG ER Study: Chest PA and Lateral Date of Exam: 09/27/18 Exam# [id number] Ordering Dr: Abdirashid Monsalve MD STUDY: X-RAY CHEST REASON FOR EXAM: Female, 38 years old. Cough x2 weeks TECHNIQUE: PA and lateral views of the chest. COMPARISON: Previous study of 04/12/2018 FINDINGS: There is again demonstrated a wispy calcific density overlying the left midlung field which may represent calcified lung or rib lesion. There is pleural calcification of the left lower hemithorax. Normal size heart. Normal mediastinum and fatoumata. Normal visualized pulmonary arteries. Normal visualized aortic arch and descending thoracic aorta. Normal visualized thoracic spine. The clavicles and shoulders appear normal. There is no demonstrated abnormality of the visualized soft tissue structures of the upper abdomen. RAD/Chest PA and Lateral IMPRESSION: There is a wispy calcific density overlying the left midlung field which may represent calcified lung or rib lesion. This measures approximately 3.8 cm in diameter. It is stable in the interval. There is left basilar pleural calcification. No acute cardiopulmonary disease process is seen. Chest findings are stable in the interval. Electronically Signed: Sg Brady MD at 19:27 EST , Service support , CC: Juany Holt MD; Abdirashid Monsalve Conference Planner: Signed ABDOMEN/PELVIS WITHOUT Observed: 09/27/2018 Status: F Source: [place] CONT 5:36 PM [facility] [place] [facility] Imaging Services [address] [place] [address] Abdomen/Pelvis without Cont MR#: [id number] Acct: [id number] Name: YOBANY LONDONO Rep #: [id number] : 1980 F 38 From: Kiarra Villanueva MD PCP: Juany Holt MD Status: REG ER Study: Abdomen/Pelvis without Cont Date of Exam: 09/27/18 Exam# [id number] Ordering Dr: Abdirashid Monsalve MD STUDY: CT ABDOMEN AND PELVIS WITHOUT CONTRAST REASON FOR EXAM: Female, 38 years old. Abdominal pain. RADIATION DOSAGE (If Supplied By Facility): CTDIvol = ( 24.18 ) mGy, DLP = ( 1159.72 ) mGycm TECHNIQUE: Transaxial images were obtained from the dome of the diaphragm to the symphysis pubis without oral contrast, and without intravenous contrast. Sagittal and coronal images were reconstructed. Individualized dose optimization techniques were used for this CT. COMPARISON: None. FINDINGS: The visualized lung bases are unremarkable. The visualized portions of the heart are within normal limits. Normal liver. Normal gallbladder and extrahepatic biliary system. Normal spleen. Normal pancreas. Normal bilateral adrenal glands. Normal right kidney. Normal left kidney. The aorta is normal in caliber. There is a small bowel obstruction due to a small anterior pelvic wall hernia. Transition is identified at this level with mild small bowel dilation proximally. The appendix is normal. There is no free fluid, free air, or organized collection. Normal urinary bladder. The left ovary is enlarged, measuring approximately 7.2 x 4.1 cm. There is a 4.2 x 3.2 cm fat-containing lesion. A small calcification is noted in the inferolateral margin. 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 There is a small, fat-containing umbilical hernia. Osteoma or prominent osseous growth arising from the left lateral eighth rib. Bony structures are otherwise unremarkable. CT/Abdomen/Pelvis without Cont IMPRESSION: 1. Small bowel obstruction due to pelvic wall hernia containing a loop of small bowel. 2. Left ovarian dermoid tumor. 3. Small fat-containing umbilical hernia. Electronically Signed: Kiarra Villanueva MD at 19:35 EST Tel , Service support , CC: Juany Holt MD; Abdirashid Monsalve Conference Planner: Signed EMERGENCY DEPARTMENT Observed: 09/23/2018 Status: F Source: [place] SUMMARY 3:44 PM [facility] [place] [facility] Medical Records Department [address] [place] [address] Emergency Department Summary 09/23/18 1539 MR#: [id number] Acct: [id number] Name: YOBANY LONDONO Rep #: [id number] : 1980 38 From: Patrick Aragon MD PCP: Juany Holt MD Status: REG ER - ER Visit Summary Date of Service: 09/23/18 Chief Complaint: Knee pain History of Present Illness: The patient is a 38 F with left knee pain after mechanical fall on her patella. She sustained no other injury. She is able to ambulate but has patellar pain. Physical Examination: Otherwise unremarkable exam she has tenderness over the anterior patella. Her extensor mechanism is intact. She has no laxity on anterior posterior medial lateral stressors. Emergency Department Course and Treatment: Negative I will discharge her with Naprosyn Disposition: Discharge stable condition Impression: Left knee contusion This note was generated with [employer] dictation software. It may contain incorrect words, spelling, and punctuation that were not noted in review of the chart prior to signing ED Disposition - Plan for ED Patient: Disposition: Home or Assisted Living Chief Complaint: Lower Extremity Injury Instructions: ED Contusion Lower Ext Prescriptions: Naproxen [Naprosyn] 500 mg PO BID PRN #20 tab Referrals: Juany Holt MD [Primary Care Provider] - 3-5 Days What to do if you have Problems For any increased pain, shortness of breath, bleeding, nausea or vomiting, chest pain, or any unexpected problems, contact your Primary Care Provider. Call [facility] ([phone]) or report to the closest Emergency Room. Call 911 if necessary. 09/23/18 1544 <Electronically signed by Patrick Aragon MD> Date Patrick Aragon MD Cosigner Signature (If Indicated): Date CC: Juany Holt MD KNEE 1 OR 2 VIEWS Observed: 09/23/2018 Status: F Source: [place] 1:54 PM [facility] [place] [facility] Imaging Services [address] [place] [address] Knee 1 or 2 Views MR#: [id number] Acct: [id number] Name: YOBANY LONDONO Rep #: [id number] : 1980 F 38 From: Pa Laboy MD PCP: Juany Holt MD Status: PRE ER Study: Knee 1 or 2 Views Date of Exam: 09/23/18 Exam# [id number] Ordering Dr: Provider,Ed P. STUDY: X-RAY - LEFT KNEE REASON FOR EXAM: Female, 38 years old. Pain following a fall. TECHNIQUE: AP and lateral view(s) of the knee. COMPARISON: None. FINDINGS: There is a deformity of the distal femur with widening of the diaphysis and metaphysis. 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 There is deformity of the proximal portion of the tibia worse on the medial side with decreased density and exostosis. This is suggestive of osteochondromatosis. There is also evidence of deformity of the proximal fibula. Normal proximal tibiofibular articulation. Normal medial femorotibial compartment. Normal lateral femorotibial compartment. Normal patellofemoral articulation. The soft tissue structures are unremarkable. 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 No acute abnormality is seen. Electronically Signed: Pa Laboy MD at 14:50 EST Tel [phone], Service support , CC: ED PHYSICIAN PROVIDER; Juany Holt MD Conference Planner: Signed EMERGENCY DEPARTMENT Observed: 09/14/2018 Status: F Source: [place] SUMMARY 3:50 PM [facility] [place] [facility] Medical Records Department [address] [place] [address] Emergency Department Summary 09/14/18 0845 MR#: [id number] Acct: [id number] Name: YOBANY LONDONO Rep #: [id number] : 1980 38 From: Patrick Aragon MD PCP: Juany Holt MD Status: DEP ER - ER Visit Summary Date of Service: 09/14/18 Chief Complaint: Nausea and vomiting History of Present Illness: The patient is a 38 F presents after 1 hour of nausea and vomiting. She has some epigastric pain, she has a history of reflux disease. She has no right upper quadrant pain. She has no fever or chills no back pain no radiation to her back. Pain in her stump is mild. She says she just does not feel good. 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 Physical Examination: Not appear in acute distress. Moist mucous membranes, no obvious facial deformity No C-spine tenderness supple neck. Regular rate and rhythm without any obvious murmurs Clear lungs bilaterally speaking in full sentences without any obvious respiratory distress Abdomen soft with epigastric tenderness no guarding or rebound. Moves all extremities without any difficulty or pain. Skin does not show any obvious rashes or lesions, no trauma. Alert oriented 3 with no gross focal deficit Emergency Department Course and Treatment: Patient was given IV fluids and antiemetics. Her workup is negative. She has no further nausea or vomiting should be discharged in stable condition Disposition: Discharge stable condition Impression: Nausea and vomiting improved This note was generated with [employer] dictation software. It may contain incorrect words, spelling, and punctuation that were not noted in review of the chart prior to signing ED Disposition - Plan for ED Patient: Disposition: Home or Assisted Living Chief Complaint: Nausea/Vomiting Instructions: ED Nausea Vomiting Prescriptions: Ondansetron [Zofran Odt] 4 mg PO 4X/DAY PRN #20 tab.rapdis PRN Reason: Nausea Referrals: Juany Holt MD [Primary Care Provider] - 2 Days What to do if you have Problems For any increased pain, shortness of breath, bleeding, nausea or vomiting, chest pain, or any unexpected problems, contact your Primary Care Provider. Call [facility] ([phone]) or report to the closest Emergency Room. Call 911 if necessary. 09/14/18 1550 <Electronically signed by Patrick Aragon MD> Date Patrick Aragon MD Cosigner Signature (If Indicated): Date CC: Juany Holt MD CBC W/DIFF, AUTOMATED Collected: 09/14/2018 Status: F Source: [place] 8:55 AM [facility] [place] [facility] TYPE CODE TESTS RESULT OUT OF RANGE REFERENCE UNITS LAB L100.1000 4.4-11.0 K/mm3 Normal WBC 8.5 LAB L100.1200 4.2-5.4 M/mm3 Normal RBC 4.79 LAB L100.1300 12.0-15.0 g/dl Normal HGB 13.6 LAB L100.1400 37-47 % Normal HCT 43.1 LAB L100.1500 81-99 fL Normal MCV 90.0 LAB L100.1600 27.0-32.0 pg Normal MCH 28.4 LAB L100.1700 32-36 g/gl Low MCHC 31.6 LAB L100.1810 11.6-14.6 % High RDW CV 14.9 LAB L100.1820 35.1-43.9 fl High RDW SD 48.1 LAB L100.1900 150-450 K/mm3 Normal PLT 213 LAB L100.2000 6.2-12.0 fl Normal MPV 11.6 LAB L100.2100 47-70 % Normal NEUT% 64.8 LAB L100.2200 19-41 % Normal LY% 25.9 LAB L100.2300 0-10 % Normal MONO% 6.9 LAB L100.2400 0-5 % Normal EO% 1.3 LAB L100.2500 0-1 % Normal BASO% 0.6 LAB L100.2550 0.0-0.9 % Normal IM GRAN % 0.500 Result Comment: IG% - Immature Granulocytes (promyelocytes, myelocytes and metamyelocytes) > 1% indicates that a LEFT SHIFT is Present. LAB L100.2620 2.0-7.7 X10 3/uL Normal Absolute Neut 5.5 LAB L100.2720 0.83-4.51 X10 3/ul Normal Absolute Lymph 2.19 Performed By: #### L100.0100 #### [facility] [address] [place], [place], [id number] COMPREHENSIVE METABOLIC Collected: 09/14/2018 Status: F Source: [place] [facility] 8:55 AM [facility] [place] [facility] TYPE CODE TESTS RESULT OUT OF RANGE REFERENCE UNITS LAB L501.0100 74-106 mg/dL Normal GLU 85 Result Comment: Please note revised GLUCOSE reference range effective 2017. LAB L501.1000 7-18 mg/dL Normal BUN 14 LAB L501.1100 0.55-1.02 mg/dL Normal CREAT,SERUM 0.67 Result Comment: The validity of the calculated GFR AND GFRAA in patients over 70 years has not been determined. Clinical correlation is essential. LAB L501.1110 >60 mL/min Normal EST GFR 105 Result Comment: Non- GFR Calc LAB L501.1115 >60 mL/min Normal EST GFR - AA 127 Result Comment: GFR Calc LAB L501.1255 ml/min Normal Estimated CRCL 87.59 LAB L501.1300 10-20 RATIO High BUN/CRE 20.8 LAB L501.1500 6.4-8. g/dL Normal 2 T PROT 6.9 LAB L501.1800 3.2-5. g/dL Low 0 ALB 2.9 LAB L501.1950 2.2-4. g/dL Normal 2 GLOB 4.0 LAB L501.2000 0.9-2. RATIO Low 4 A/G 0.7 LAB L501.2200 8.5-10 mg/dL Normal .1 CA 8.6 LAB L501.4100 15-37 U/L Normal AST 17 LAB L501.4305 45-117 U/L Normal ALK P 59 LAB L501.4405 13-56 U/L Normal ALT 20 LAB L501.4600 0.20-1 mg/dL Normal .00 T BILI 0.40 LAB L501.5300 136-14 mmol/L Normal 5 NA 139 LAB L501.5600 3.5-5. mmol/L Normal 1 K 3.7 LAB L501.5900 98-107 mmol/L Normal CL 103 LAB L501.6100 21.0-3 mmol/L Normal 2.0 CO2 31.0 LAB L501.6200 5-15 Normal GAP 5 Performed By: #### L500.4050 #### [facility] [address] [place], [address] PROGRESS Observed: 09/05/2018 Status: COMPLETED Source: [place] 10:20 AM [facility] REPOSITORY HNO ID: [id number] Author: Bird [employer]) Tomi Service: (none) Author Type: Nurse Practitioner Type: Progress Notes Filed: 09/05/2018 11:08 AM Note Text: Chief Complaint Patient presents with: Imm/Inj: Flu Vaccine Abdominal Pain: vomitting yesterday - no diarrhea - HPI Yobany Londono is a 38 year old female who presents here today for Above Complaints. Patient presents to the office today for evaluation of abdominal pain. Has aabdominal surgical history of tubal ligation, delivery ?3. Location is the middle of the stomach. Described as a dull ache. Has been intermittenly for 6 to one year months. States that she will have intermittent periods of increased nausea, emesis. States she had an episode of emesis yesterday. Had this emesis after eating a ham sandwich. States that after she threw up, she felt better. Denies any diarrhea. Occasionally will have some constipation. States that she has days where she will have hard stools or she will have the urge to defecate and not produce any substance. Also has some gas. She is prescribed omeprazole 20 mg daily and Bentyl as needed. At this time, she is afebrile. States that she did have a crampy pain last night. She denies any large intake of beans, fibrous foods. Does admit to drinking carbonated beverages. Does mention that she does eat ice cream. States that cheese is on her sandwich. Does state that she eats [place]. Also has increased abdominal pain with trunk rotation, sitting up. Past medical history, appointments, medications, allergies reviewed. 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 - ORAL SURGERY PROCEDURE teeth removed - PAST SURGICAL HISTORY OF TM tubes - REMOVAL OF TONSILS,<12 Y/O Tonsillectomy - TUBAL LIGATION Family History FAMILY HISTORY Problem Relation Age of Onset - Diabetes Father - Hypertension Mother - Cancer Mother liver cancer - other (osteoarthritis) Mother - Heart Maternal Grandmother - Cancer Maternal Grandmother - Diabetes Paternal Grandfather - Prostate Cancer Paternal Grandfather - Stroke Paternal Grandmother - Heart Sister hole in heart - Breast Cancer Sister - other (osteochondroma) Son - other (osteochondroma) Son - Emphysema Maternal Aunt - COPD Maternal Aunt Patient Allergies ALLERGIES Allergen Reactions - Seasonal Allergies Intolerance - Penicillins Rash, Vomiting JUST SENSITIVITY TO PCN PER DR FAJARDO Current Medications Current Outpatient Prescriptions on File Prior to Visit: citalopram (CELEXA) 40 mg tablet Take 1 tablet by mouth once daily. guaiFENesin (ROBITUSSIN) 100 mg/5 mL syrup Take 10 mL by mouth four times daily as needed for Cough. dicyclomine (BENTYL) 10 mg capsule Take 2 capsules by mouth three times daily as needed. albuterol HFA (VENTOLIN HFA) 90 mcg/actuation inhaler Inhale 2 Puffs as instructed every 6 hours as needed for Wheezing/Shortness of Breath. loratadine (CLARITIN) 10 mg tablet Take 1 tablet by mouth once daily as needed. FOR ALLERGY SYMPTOMS fluticasone (FLONASE) 50 mcg/actuation nasal spray Use 2 Sprays in each nostril once daily. Rinse mouth after use. nicotine (NICODERM) 21 mg/24 hr Apply 1 Patch as directed every 24 hours. Cholecalciferol, Vitamin D3, (VITAMIN D) 1,000 unit cap Take 1,000 Units by mouth once daily. albuterol (PROVENTIL) 2.5 mg /3 mL (0.083 %) nebulizer solution Use 3 mL via nebulizer every 4 hours as needed for Wheezing/Shortness of Breath. Use over 5-15minutes. COMPOUNDED PRESCRIPTION Home oxygen : 3 Litre per minute with exercise and at hours of sleep via nasal canula with conserving device Associated diagnosis : COPD guaiFENesin-dextromethorphan (ROBITUSSIN DM) 100-10 mg/5 mL syrup Take 10 mL by mouth every 6 hours as needed for Cough. meloxicam (MOBIC) 15 mg tablet TAKE ONE TABLET BY MOUTH ONCE DAILY WITH FOOD B Complex Vitamins capsule TAKE ONE CAPSULE BY MOUTH EVERY DAY lidocaine (LIDODERM) 5 % Apply 1 Patch as directed every 24 hours. budesonide-formoterol (SYMBICORT) 160-4.5 mcg/actuation inhaler Inhale 2 Puffs as instructed twice daily. omeprazole (PRILOSEC) 20 mg capsule Take 1 capsule by mouth daily before breakfast. 1/2 hr before meal. acetaminophen (TYLENOL) 500 mg tablet EVERY 6 HOURS NEEDED vitamin b complex (B COMPLETE) tab Take 1 tablet by mouth once daily. multivitamin tablet Take 1 tablet by mouth once daily. No current facility-administered medications on file prior to visit. Social History Social History Marital status: Spouse name: Years of education: Number of children: Occupational History Occupation Employer Comment unemployed, disabi* Social History Main Topics Smoking status: Current Some Day Smoker Packs/day: 0.50 Years: 15.00 Types: Cigarettes Start date: 1994 Smokeless tobacco: Never Used Comment: stated has not had a cigarette for 48 hours Alcohol use: No Comment: rare wine cooler- not while Drug use: No Sexual activity: Yes Partners with: Male control/protection: None Social History Narrative Mother 2011. Father needs her help. 2 sons. REVIEW OF SYSTEMS: as above ? Reviewed relevant PMHx, PSHx, Social Hx, current medications and allergies. EXAM: BP 104/74 Pulse 73 Temp (!) 35.7 ?C (96.3 ?F) (Tympanic) LMP 08/25/2018 General Appearance: Well appearing, alert, in no acute distress, well-hydrated, well nourished, obese. Lungs: Lungs clear to auscultation. No wheezing, rhonchi, rales. Heart: RRR without murmur, gallop, or rubs. No ectopy. Abdomen: Normal abdominal exam, Abdomen soft, non-distended. Bowel sounds normal. No masses, organomegaly, did have a questionable right upper quadrant positive Cook sign. Extremities: No deformities, edema Health Maintenance List PAP EVERY 5 YEARS due on 02/06/2018 HPV EVERY 5 YEARS due on 02/06/2018 INFLUENZA(1) due on 07/19/2018 STEROID INHALER PRESCRIBED due on 09/18/2018 STEROID INHALER ADHERENCE due on 09/18/2018 ANNUAL PCP TEAM CHRONIC DISEASE VISIT due on 04/15/2019 DTAP,TDAP,TD(6 - Td) due on 05/23/2026 ONE PNEUMOVAX PRIOR TO AGE 65 Completed Data reviewed Component Latest Ref Rng AND Units 03/07/2018 03/21/2018 WBC 3.70 - 11.00 k/uL 11.07 (H) 16.38 (H) RBC 3.90 - 5.20 m/uL 4.65 4.93 Hemoglobin 11.5 - 15.5 g/dL 12.5 13.2 Hematocrit 36.0 - 46.0 % 43.5 45.8 MCV 80.0 - 100.0 fL 93.5 92.9 MCH 26.0 - 34.0 pG 26.9 26.8 MCHC 30.5 - 36.0 g/dL 28.7 (L) 28.8 (L) RDW-CV 11.5 - 15.0 % 15.9 (H) 15.9 (H) Platelet Count 150 - 400 k/uL 247 287 MPV 9.0 - 12.7 fL 11.8 10.8 Neut% % 84.5 Abs Neut (ANC) 1.45 - 7.50 k/uL 13.84 (H) Lymph% % 11.2 Abs Lymph 1.00 - 4.00 k/uL 1.83 Calloway% % 3.4 Abs Calloway <0.87 k/uL 0.56 Eosin% % 0.0 Abs Eosin <0.46 k/uL 0.00 Baso% % 0.0 Abs Baso <0.11 k/uL 0.00 Myelo% % 0.9 Anisocytosis Present Left Shift Present Polychromasia Slight Platelet Estimate Platelet estimate adequate Diff Type Manual Diff Protein, Total 6.3 - 8.0 g/dL 6.9 Albumin 3.9 - 4.9 g/dL 3.4 (L) Calcium 8.5 - 10.2 mg/dL 8.8 8.9 Bilirubin, Total 0.2 - 1.3 mg/dL 0.4 Alkaline Phosphatase 32 - 117 U/L 55 AST 13 - 35 U/L 18 Glucose 74 - 99 mg/dL 77 106 (H) BUN 7 - 21 mg/dL 12 12 Creatinine 0.58 - 0.96 mg/dL 0.60 0.63 Sodium 136 - 144 mmol/L 138 139 Potassium 3.7 - 5.1 mmol/L 4.0 3.8 Chloride 97 - 105 mmol/L 96 (L) 97 CO2 22 - 30 mmol/L 32 (H) 34 (H) Anion Gap 9 - 18 mmol/L 10 8 (L) ALT 7 - 38 U/L 14 eGFR- >60 >60 eGFR-All Other Races . >60 >60 Absolute nRBC <0.01 k/uL <0.01 ASSESSMENT/PLAN: 1. Abdominal pain, unspecified abdominal location - ICD9: 789.00, ICD10: R10.9 (primary diagnosis) - some of her abdominal pain originates from a more vague abdominal strain. Did have some nausea, vomiting yesterday. This is been intermittent over the last 6 months to a year. We will get a CMP, ultrasound increase her PPI. I asked her to not eat or drink anything 3-4 hours prior to bedtime, decrease carbonated, caffeinated beverages and start a food journal to determine if lactose intolerance is one of her causes. - COMP METABOLIC PANEL - US ABD RT UPPER QUADRANT - OMEPRAZOLE 20 MG CAPSULE,DELAYED RELEASE 2. Abdominal gas pain - ICD9: 787.3, ICD10: R14.1 - discussed trying to eat a clean diet with out fast food. - SIMETHICONE 80 MG CHEWABLE TABLET 3. Need for vaccination - ICD9: V05.9, ICD10: Z23 - INFLUENZA VACCINE QUADRIVALENT AGE 3 YRS PLUS + IM follow-up if not improving. Bird Lopez APRN.BUFFER CHROME PROGRESS Observed: 09/05/2018 Status: COMPLETED Source: [place] 10:20 AM [facility] REPOSITORY [facility] ID: [id number] Author: Liliam Trammell [facility] Service: (none) Author Type: (none) Type: Progress Notes Filed: 09/05/2018 11:08 AM Note Text: 38 year old female here for INACTIVATED INFLUENZA VACCINE. [id number] Season Patient is identified by name and date of : Yes [] CONTRAINDICATIONS color enhanced section Age less than 6 months? No Allergy to eggs, chicken, chicken feathers, or chicken dander? No Allergy to thimerosal (a preservative) or formaldehyde, gelatin? No History of severe reaction to any vaccine component or a previous dose of influenza vaccination? No History of Guillain-[place] Syndrome within 6 weeks after a previous influenza vaccine? No Patient is not moderately or severely ill? No Current temperature greater or equal to 100.4F? No History of Bone Marrow Transplant prior 6 months or solid organ transplant in the past 3 months ? No History of fainting after a prior injection or medical procedure? No- ? If patient has fainted in the past, the CDC recommends sitting or lying down for 15 minutes after the vaccination. [] VERIFICATION color enhanced section Was the answer Yes for any of the above contraindications? No contraindications present. Acceptable to proceed with vaccine. Patient/guardian agrees the above answers are true to the best of their knowledge? Yes Flu vaccine information sheet given? Yes See immunization activity in [facility] for details of immunizations adminstered today. Patient age: [age] year old For The [id number] Flu Season 6-35 months old: Fluzone 0.25 ml - IM (Preservative Free) 3 years of age: Fluzone 0.5 ml - IM (Preservative Free) 3 years and older: Fluzone 0.5 ml- IM-(with Preservatives) 65+ years old: 2-49 years old Fluzone High-Dose 0.5 ml - IM (Preservative Free) FLUMIST- intranasal REMEMBER: If patient is less than 9 years of age and this is the first vaccine of Influenza to be received in any flu season, they should receive a second dose in one months time. CNOV Observed: 09/05/2018 Status: COMPLETED Source: [place] 10:20 AM [facility] REPOSITORY Office Visit (FAMPWS) YOBANY LONDONO ([id number]) 1980 F [facility] Date Time Provider Department 09/05/18 10:20 AM BIRD LOPEZ ([facility]) F[facility]WS During your visit today, we recorded the following information about you: Temperature Pulse Blood pressure Last Period 96.3 degrees 73/minute 104/74 08/25/18 Liliam Trammell [facility] 09/05/2018 11:08 AM Signed 38 year old female here for INACTIVATED INFLUENZA VACCINE. Season Patient is identified by name and date of : Yes [] CONTRAINDICATIONS color enhanced section Age less than 6 months? No Allergy to eggs, chicken, chicken feathers, or chicken dander? No Allergy to thimerosal (a preservative) or formaldehyde, gelatin? No History of severe reaction to any vaccine component or a previous dose of influenza vaccination? No History of Guillain-[place] Syndrome within 6 weeks after a previous influenza vaccine? No Patient is not moderately or severely ill? No Current temperature greater or equal to 100.4F? No History of Bone Marrow Transplant prior 6 months or solid organ transplant in the past 3 months ? No History of fainting after a prior injection or medical procedure? No- ? If patient has fainted in the past, the CDC recommends sitting or lying down for 15 minutes after the vaccination. [] VERIFICATION color enhanced section Was the answer Yes for any of the above contraindications? No contraindications present. Acceptable to proceed with vaccine. Patient/guardian agrees the above answers are true to the best of their knowledge? Yes Flu vaccine information sheet given? Yes See immunization activity in [facility] for details of immunizations adminstered today. Patient age: [age] year old For The Flu Season 6-35 months old: Fluzone 0.25 ml - IM (Preservative Free) 3 years of age: Fluzone 0.5 ml - IM (Preservative Free) 3 years and older: Fluzone 0.5 ml- IM-(with Preservatives) 65+ years old: 2-49 years old Fluzone High-Dose 0.5 ml - IM (Preservative Free) FLUMIST- intranasal REMEMBER: If patient is less than 9 years of age and this is the first vaccine of Influenza to be received in any flu season, they should receive a second dose in one months time. Bird Lopez APRN.RAN 09/05/2018 11:08 AM Signed Chief Complaint Patient presents with: Imm/Inj: Flu Vaccine Abdominal Pain: vomitting yesterday - no diarrhea - HPI Yobany Londono is a 38 year old female who presents here today for Above Complaints. Patient presents to the office today for evaluation of abdominal pain. Has aabdominal surgical history of tubal ligation, delivery ?3. Location is the middle of the stomach. Described as a dull ache. Has been intermittenly for 6 to one year months. States that she will have intermittent periods of increased nausea, emesis. States she had an episode of emesis yesterday. Had this emesis after eating a ham sandwich. States that after she threw up, she felt better. Denies any diarrhea. Occasionally will have some constipation. States that she has days where she will have hard stools or she will have the urge to defecate and not produce any substance. Also has some gas. She is prescribed omeprazole 20 mg daily and Bentyl as needed. At this time, she is afebrile. States that she did have a crampy pain last night. She denies any large intake of beans, fibrous foods. Does admit to drinking carbonated beverages. Does mention that she does eat ice cream. States that cheese is on her sandwich. Does state that she eats [place]. Also has increased abdominal pain with trunk rotation, sitting up. Past medical history, appointments, medications, allergies reviewed. 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 - ORAL SURGERY PROCEDURE teeth removed - PAST SURGICAL HISTORY OF TM tubes - REMOVAL OF TONSILS,<14 Y/O Tonsillectomy - TUBAL LIGATION Family History FAMILY HISTORY Problem Relation Age of Onset - Diabetes Father - Hypertension Mother - Cancer Mother liver cancer - other (osteoarthritis) Mother - Heart Maternal Grandmother - Cancer Maternal Grandmother - Diabetes Paternal Grandfather - Prostate Cancer Paternal Grandfather - Stroke Paternal Grandmother - Heart Sister hole in heart - Breast Cancer Sister - other (osteochondroma) Son - other (osteochondroma) Son - Emphysema Maternal Aunt - COPD Maternal Aunt Patient Allergies ALLERGIES Allergen Reactions - Seasonal Allergies Intolerance - Penicillins Rash, Vomiting JUST SENSITIVITY TO PCN PER DR FAJARDO Current Medications Current Outpatient Prescriptions on File Prior to Visit: citalopram (CELEXA) 40 mg tablet Take 1 tablet by mouth once daily. guaiFENesin (ROBITUSSIN) 100 mg/5 mL syrup Take 10 mL by mouth four times daily as needed for Cough. dicyclomine (BENTYL) 10 mg capsule Take 2 capsules by mouth three times daily as needed. albuterol HFA (VENTOLIN HFA) 90 mcg/actuation inhaler Inhale 2 Puffs as instructed every 6 hours as needed for Wheezing/Shortness of Breath. loratadine (CLARITIN) 10 mg tablet Take 1 tablet by mouth once daily as needed. FOR ALLERGY SYMPTOMS fluticasone (FLONASE) 50 mcg/actuation nasal spray Use 2 Sprays in each nostril once daily. Rinse mouth after use. nicotine (NICODERM) 21 mg/24 hr Apply 1 Patch as directed every 24 hours. Cholecalciferol, Vitamin D3, (VITAMIN D) 1,000 unit cap Take 1,000 Units by mouth once daily. albuterol (PROVENTIL) 2.5 mg /3 mL (0.083 %) nebulizer solution Use 3 mL via nebulizer every 4 hours as needed for Wheezing/Shortness of Breath. Use over 5-15minutes. COMPOUNDED PRESCRIPTION Home oxygen : 3 Litre per minute with exercise and at hours of sleep via nasal canula with conserving device Associated diagnosis : COPD guaiFENesin-dextromethorphan (ROBITUSSIN DM) 100-10 mg/5 mL syrup Take 10 mL by mouth every 6 hours as needed for Cough. meloxicam (MOBIC) 15 mg tablet TAKE ONE TABLET BY MOUTH ONCE DAILY WITH FOOD B Complex Vitamins capsule TAKE ONE CAPSULE BY MOUTH EVERY DAY lidocaine (LIDODERM) 5 % Apply 1 Patch as directed every 24 hours. budesonide-formoterol (SYMBICORT) 160-4.5 mcg/actuation inhaler Inhale 2 Puffs as instructed twice daily. omeprazole (PRILOSEC) 20 mg capsule Take 1 capsule by mouth daily before breakfast. 1/2 hr before meal. acetaminophen (TYLENOL) 500 mg tablet EVERY 6 HOURS NEEDED vitamin b complex (B COMPLETE) tab Take 1 tablet by mouth once daily. multivitamin tablet Take 1 tablet by mouth once daily. No current facility-administered medications on file prior to visit. Social History Social History Marital status: Spouse name: Years of education: Number of children: Occupational History Occupation Employer Comment unemployed, disabi* Social History Main Topics Smoking status: Current Some Day Smoker Packs/day: 0.50 Years: 15.00 Types: Cigarettes Start date: 1994 Smokeless tobacco: Never Used Comment: stated has not had a cigarette for 48 hours Alcohol use: No Comment: rare wine cooler- not while Drug use: No Sexual activity: Yes Partners with: Male control/protection: None Social History Narrative Mother 2011. Father needs her help. 2 sons. REVIEW OF SYSTEMS: as above ? Reviewed relevant PMHx, PSHx, Social Hx, current medications and allergies. EXAM: BP 104/74 Pulse 73 Temp (!) 35.7 ?C (96.3 ?F) (Tympanic) LMP 08/25/2018 General Appearance: Well appearing, alert, in no acute distress, well-hydrated, well nourished, obese. Lungs: Lungs clear to auscultation. No wheezing, rhonchi, rales. Heart: RRR without murmur, gallop, or rubs. No ectopy. Abdomen: Normal abdominal exam, Abdomen soft, non-distended. Bowel sounds normal. No masses, organomegaly, did have a questionable right upper quadrant positive Cook sign. Extremities: No deformities, edema Health Maintenance List PAP EVERY 5 YEARS due on 02/06/2018 HPV EVERY 5 YEARS due on 02/06/2018 INFLUENZA(1) due on 07/19/2018 STEROID INHALER PRESCRIBED due on 09/18/2018 STEROID INHALER ADHERENCE due on 09/18/2018 ANNUAL PCP TEAM CHRONIC DISEASE VISIT due on 04/15/2019 DTAP,TDAP,TD(6 - Td) due on 05/23/2026 ONE PNEUMOVAX PRIOR TO AGE 65 Completed Data reviewed Component Latest Ref Rng AND Units 03/07/2018 03/21/2018 WBC 3.70 - 11.00 k/uL 11.07 (H) 16.38 (H) RBC 3.90 - 5.20 m/uL 4.65 4.93 Hemoglobin 11.5 - 15.5 g/dL 12.5 13.2 Hematocrit 36.0 - 46.0 % 43.5 45.8 MCV 80.0 - 100.0 fL 93.5 92.9 MCH 26.0 - 34.0 pG 26.9 26.8 MCHC 30.5 - 36.0 g/dL 28.7 (L) 28.8 (L) RDW-CV 11.5 - 15.0 % 15.9 (H) 15.9 (H) Platelet Count 150 - 400 k/uL 247 287 MPV 9.0 - 12.7 fL 11.8 10.8 Neut% % 84.5 Abs Neut (ANC) 1.45 - 7.50 k/uL 13.84 (H) Lymph% % 11.2 Abs Lymph 1.00 - 4.00 k/uL 1.83 Calloway% % 3.4 Abs Calloway <0.87 k/uL 0.56 Eosin% % 0.0 Abs Eosin <0.46 k/uL 0.00 Baso% % 0.0 Abs Baso <0.11 k/uL 0.00 Myelo% % 0.9 Anisocytosis Present Left Shift Present Polychromasia Slight Platelet Estimate Platelet estimate adequate Diff Type Manual Diff Protein, Total 6.3 - 8.0 g/dL 6.9 Albumin 3.9 - 4.9 g/dL 3.4 (L) Calcium 8.5 - 10.2 mg/dL 8.8 8.9 Bilirubin, Total 0.2 - 1.3 mg/dL 0.4 Alkaline Phosphatase 32 - 117 U/L 55 AST 13 - 35 U/L 18 Glucose 74 - 99 mg/dL 77 106 (H) BUN 7 - 21 mg/dL 12 12 Creatinine 0.58 - 0.96 mg/dL 0.60 0.63 Sodium 136 - 144 mmol/L 138 139 Potassium 3.7 - 5.1 mmol/L 4.0 3.8 Chloride 97 - 105 mmol/L 96 (L) 97 CO2 22 - 30 mmol/L 32 (H) 34 (H) Anion Gap 9 - 18 mmol/L 10 8 (L) ALT 7 - 38 U/L 14 eGFR- >60 >60 eGFR-All Other Races . >60 >60 Absolute nRBC <0.01 k/uL <0.01 ASSESSMENT/PLAN: 1. Abdominal pain, unspecified abdominal location - ICD9: 789.00, ICD10: R10.9 (primary diagnosis) - some of her abdominal pain originates from a more vague abdominal strain. Did have some nausea, vomiting yesterday. This is been intermittent over the last 6 months to a year. We will get a CMP, ultrasound increase her PPI. I asked her to not eat or drink anything 3-4 hours prior to bedtime, decrease carbonated, caffeinated beverages and start a food journal to determine if lactose intolerance is one of her causes. - COMP METABOLIC PANEL - US ABD RT UPPER QUADRANT - OMEPRAZOLE 20 MG CAPSULE,DELAYED RELEASE 2. Abdominal gas pain - ICD9: 787.3, ICD10: R14.1 - discussed trying to eat a clean diet with out fast food. - SIMETHICONE 80 MG CHEWABLE TABLET 3. Need for vaccination - ICD9: V05.9, ICD10: Z23 - INFLUENZA VACCINE QUADRIVALENT AGE 3 YRS PLUS + IM follow-up if not improving. Bird Lopez APRN.RAN Lopez APRN.CNP 09/05/2018 10:46 AM Signed Avoid eating 3-4 hours prior to bedtime. Trial increasing omeprazole to 20 mg twice daily prior to meals. Reduce caffeine beverage intake, carbonated beverages. Try to not eat fast foods as these are not good for your digestive system. Try to keep a journal to see if dairy products or other specific types of foods. Bird Lopez APRN.RAN Referring Provider: SELF [[id number]] Allergies As of Date: 09/05/2018 Noted Allergy Reaction SEASONAL ALLERGIES 05/04/2013 5 - Intolerance PENICILLINS 02/11/2007 2 - Rash 11 - Vomiting Comments: JUST SENSITIVITY TO PCN PER DR FAJARDO Date Reviewed: 09/05/2018 Reviewed by: Liliam Trammell [facility] - Fully Assessed Reason for Visit: Imm/Inj [58] Cmt: Flu Vaccine Abdominal Pain [1] Cmt: vomitting yesterday - no diarrhea - Reason For Visit History Recorded Primary Visit Diagnosis:Abdominal pain, unspecified abdominal location [R10.9] Other Visit Diagnoses:Abdominal gas pain [R14.1] Need for vaccination [Z23] Order(s):INFLUENZA VACCINE QUADRIVALENT AGE 3 YRS PLUS + IM [[id number]] Order #: [id number] COMP METABOLIC PANEL [SQCMP] Order #: [id number] FUTURE US ABD RT UPPER QUADRANT [[id number]] Order #: [id number] FUTURE omeprazole (PRILOSEC) 20 mg capsuleTake 1 capsule by mouth twice daily before meals. 1/2 hr before meal.Disp: 60 capsuleRfl: 3 simethicone, chewable (MYLICON) 80 mg chewable tabletTake 1 tablet by mouth every 6 hours as needed.Disp: 60 tabletRfl: 2 Prescriptions as of 09/05/2018 Sig: OMEPRAZOLE 20 MG CAPSULE,GHASSAN* Take 1 capsule by mouth twice* CITALOPRAM 40 MG TABLET Take 1 tablet by mouth once d* GUAIFENESIN 100 MG/5 ML ORAL * Take 10 mL by mouth four time* DICYCLOMINE 10 MG CAPSULE Take 2 capsules by mouth thre* ALBUTEROL SULFATE HFA 90 MCG/* Inhale 2 Puffs as instructed * LORATADINE 10 MG TABLET Take 1 tablet by mouth once d* FLUTICASONE 50 MCG/ACTUATION * Use 2 Sprays in each nostril * NICOTINE 21 MG/24 HR DAILY TR* Apply 1 Patch as directed yoly* CHOLECALCIFEROL (VITAMIN D3) * Take 1,000 Units by mouth onc* ALBUTEROL SULFATE 2.5 MG/3 ML* Use 3 mL via nebulizer every * COMPOUNDED PRESCRIPTION Home oxygen : 3 Litre per min* DEXTROMETHORPHAN-GUAIFENESIN * Take 10 mL by mouth every 6 h* MELOXICAM 15 MG TABLET TAKE ONE TABLET BY MOUTH ONCE* VITAMIN B COMPLEX CAPSULE TAKE ONE CAPSULE BY MOUTH YOLY* LIDOCAINE 5 % TOPICAL PATCH Apply 1 Patch as directed yoly* BUDESONIDE-FORMOTEROL HFA 160* Inhale 2 Puffs as instructed * ACETAMINOPHEN 500 MG TABLET EVERY 6 HOURS NEEDED VITAMIN B COMPLEX TABLET Take 1 tablet by mouth once d* MULTIVITAMIN TABLET Take 1 tablet by mouth once d* SIMETHICONE 80 MG CHEWABLE TA* Take 1 tablet by mouth every * Problem List As Of Date 09/05/2018 Noted Resolved Pulpitis [K04.01] INVALID FOR* OTHER LUNG DISEASE NEC [J98.4] INVALID FOR*03/09/2008 Tobacco use disorder [F17.200] INVALID FOR* Priority: L More... Acute Bronchitis [J20.9] INVALID FOR* Chronic Airway Obstruction, not Elsewhere Class*INVALID FOR* Morbid obesity [E66.01] Priority: L More... Back pain [M54.9] More... Osteochondroma, multiple [Q78.6] More... Asthma [J45.909] Depression with anxiety [F41.8] Asthma exacerbation [J45.901] INVALID FOR* SOB (shortness of breath) [R06.02] INVALID FOR* Fibromyalgia [M79.7] INVALID FOR* Priority: L More... History of section [Z98.891] INVALID FOR* More... Obesity in [O99.210] INVALID FOR*03/07/2018 More... Supervision of normal [Z34.90] INVALID FOR*03/07/2018 Family history of seizure disorder [Z82.0] INVALID FOR* More... Encounter for sterilization [Z30.2] INVALID FOR* More... cardiac anomaly affecting , ante*INVALID FOR*03/07/2018 [Z34.90] INVALID FOR*03/07/2018 COPD exacerbation (HCC) [J44.1] INVALID FOR*03/24/2018 Priority: A More... Obesity, Class III, BMI >= 40 E66.01 [E66.01] INVALID FOR* Healthcare maintenance [Z00.00] INVALID FOR*03/24/2018 Priority: M More... On home O2 [Z99.81] INVALID FOR* Other instructions from your clinician: Avoid eating 3-4 hours prior to bedtime. Trial increasing omeprazole to 20 mg twice daily prior to meals. Reduce caffeine beverage intake, carbonated beverages. Try to not eat fast foods as these are not good for your digestive system. Try to keep a journal to see if dairy products or other specific types of foods. Bird Tomi, ESTHETICS INSTRUCTOR.BUFFER CHROME Prescriptions ordered this encounter Disp Refills Start End OMEPRAZOLE 20 MG CAPSULE,DELAYED REL* 60 c* 3 09/05/2018 Route: ORAL Sig: Take 1 capsule by mouth twice daily before meals. 1/2 hr before meal. SIMETHICONE 80 MG CHEWABLE TABLET 60 t* 2 09/05/2018 Route: ORAL Sig: Take 1 tablet by mouth every 6 hours as needed. Medications Discontinued During This Encounter omeprazole (PRILOSEC) 20 mg capsule 90 c* 3 12/10/2017 09/05/2018 Route: ORAL Sig: Take 1 capsule by mouth daily before breakfast. 1/2 hr before meal. Disc: Reason for discontinue is not on file. Disposition: Return if symptoms worsen or fail to improve. Follow-up and Disposition History Recorded Encounter Status:Closed by BIRD LOPEZ CNP on 09/05/18 ED NOTE Observed: 08/19/2018 Status: COMPLETED Source: [place] 9:53 PM [facility] REPOSITORY HNO ID: [id number] Author: Soha MercadoRn) TONY Chakraborty Service: Emergency Medicine Author Type: Registered Nurse Type: ED Notes Filed: 08/19/2018 9:54 PM Note Text: Patient informed: the name of medication, why we are giving it, possible side effects, what they may expect to feel, and was offered a chance to ask questions, prior to the administration of Vibramycin, Decadron. ED PROV NOTE Observed: 08/19/2018 Status: COMPLETED Source: [place] 9:50 PM [facility] REPOSITORY HNO ID: [id number] Author: Chayo Gray MD Service: Emergency Medicine Author Type: Physician Type: ED Provider Notes Filed: 08/19/2018 9:58 PM Note Text: ED Provider Note Patient Name: Yobany Londono SERVICE DATE: 08/19/18 History Patient presents with: Cough Diarrhea Sore Throat Yobany Londono is a 38 year old female with history of strep throat who presents with generalized sore throat pain. - Patient was exposed to sick contacts. Patient is able to swallow liquids and solids. - Symptoms began 2 days prior to arrival. Onset was gradual and symptoms are constant. - Severity: mild - Timing: constant - Symptoms are exacerbated by drinking, eating and swallowing. - Symptoms are not exacerbated by breathing. - Symptoms are associated with cough and diarrhea and headache. - Symptoms are not associated with drooling and nausea. - Improved by nothing . - Not improved by lozenges. 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 - ORAL SURGERY PROCEDURE teeth removed - PAST SURGICAL HISTORY OF TM tubes - REMOVAL OF TONSILS,<12 Y/O Tonsillectomy - TUBAL LIGATION FAMILY HISTORY Problem Relation Age of Onset - Diabetes Father - Hypertension Mother - Cancer Mother liver cancer - other (osteoarthritis) Mother - Heart Maternal Grandmother - Cancer Maternal Grandmother - Diabetes Paternal Grandfather - Prostate Cancer Paternal Grandfather - Stroke Paternal Grandmother - Heart Sister hole in heart - Breast Cancer Sister - other (osteochondroma) Son - other (osteochondroma) Son - Emphysema Maternal Aunt - COPD Maternal Aunt Social History Social History Main Topics - Smoking status: Current Some Day Smoker Packs/day: 0.50 Years: 15.00 Types: Cigarettes Start date: 1994 - Smokeless tobacco: Never Used Comment: stated has not had a cigarette for 48 hours - Alcohol use No Comment: rare wine cooler- not while - Drug use: No - Sexual activity: Yes Partners: Male control/ protection: None ALLERGIES Allergen Reactions - Seasonal Allergies Intolerance - Penicillins Rash, Vomiting JUST SENSITIVITY TO PCN PER DR FAJARDO Review of Systems Constitutional: Positive for chills. Negative for fever. HENT: Positive for sore throat. Negative for congestion, drooling and trouble swallowing. Respiratory: Positive for cough. Negative for shortness of breath. Gastrointestinal: Positive for diarrhea. Negative for abdominal pain, nausea and vomiting. Musculoskeletal: Negative for back pain and myalgias. Skin: Negative for color change, pallor, rash and wound. Allergic/Immunologic: Positive for environmental allergies. Negative for food allergies and immunocompromised state. Neurological: Negative for dizziness and syncope. Psychiatric/Behavioral: Negative for confusion. The patient is not nervous/anxious. Physical Exam BP 120/69 Pulse 73 Temp (Src) 97.8 (Temporal Artery) Resp 18 Ht 5' 1 (1.55m) Wt 293 lb (132.9kg) SpO2 98% BMI 55.39 kg/(m2). Physical Exam Constitutional: She is oriented to person, place, and time. She appears well-developed and well-nourished. No distress. HENT: Head: Normocephalic and atraumatic. Right Ear: External ear normal. Left Ear: External ear normal. Eyes: EOM are normal. Right eye exhibits no discharge. No scleral icterus. Pharynx erythematous, no pooling Neck: Normal range of motion. Neck supple. Cardiovascular: Normal rate and regular rhythm. Pulmonary/Chest: Effort normal. No respiratory distress. She has wheezes. Musculoskeletal: Normal range of motion. She exhibits no edema or deformity. Neurological: She is alert and oriented to person, place, and time. No sensory deficit. She exhibits normal muscle tone. Skin: Skin is warm and dry. Capillary refill takes less than 2 seconds. She is not diaphoretic. No erythema. No pallor. Psychiatric: She has a normal mood and affect. Her behavior is normal. Judgment and thought content normal. Nursing note and vitals reviewed. Diagnostic Testing ED Labs Ordered and Reviewed - No data to display Procedures ED Course / Clinical Impression Clinical Impressions as of Aug 19 2158 Pharyngitis, unspecified etiology MDM / Disposition / Plan Nontoxic. Well hydrated. 1 episode diarrhea today. Always wheezes hx asthma and smoking. Ambulates well . Good vitals. Mostly concerend about throat. Exposure to possible strep . Will start on doxycycline and one dose decadron Disposition The patient was discharged. Counseled patient regarding suspected diagnosis. As well as the need for follow-up. Discharged home with verbal and written instructions. They were instructed to return as needed for persistent or worsening symptoms or any new concerns. Condition at disposition is stable. SIGNATURE: MD Chayo Zaldivar MD [id number] ED NOTE Observed: 08/19/2018 Status: COMPLETED Source: [place] 9:26 PM [facility] REPOSITORY HNO ID: [id number] Author: Katlyn (Tony) TONY Ochoa Service: Emergency Medicine Author Type: Registered Nurse Type: ED Notes Filed: 08/19/2018 9:26 PM Note Text: Patient c/o of sore throat, cough, headache, chills, and diarrhea. Patient ambulates to room 3 without difficulties. KARI Observed: 08/19/2018 Status: COMPLETED Source: [place] 12:00 AM [facility] REPOSITORY Patient Outreach (FAMPST) HOLIDAYYOBANY ([id number]) 1980 [facility] Date Time Provider Department 08/19/18 [facility] During your visit today, we recorded the following information about you: Allergies As of Date: 08/19/2018 Noted Allergy Reaction SEASONAL ALLERGIES 05/04/2013 5 - Intolerance PENICILLINS 02/11/2007 2 - Rash 11 - Vomiting Comments: JUST SENSITIVITY TO PCN PER DR FAJARDO Date Reviewed: 08/19/2018 Reviewed by: Chayo Gray MD - Fully Assessed Visit Diagnosis:Medication management [Z79.899] Order(s):HGB A1C [[id number]] Order #: [id number] FUTURE Prescriptions as of 08/19/2018 Sig: X CITALOPRAM 40 MG TABLET Take 1 tablet by mouth once d* GUAIFENESIN 100 MG/5 ML ORAL * Take 10 mL by mouth four time* X DICYCLOMINE 10 MG CAPSULE Take 2 capsules by mouth thre* ALBUTEROL SULFATE HFA 90 MCG/* Inhale 2 Puffs as instructed * LORATADINE 10 MG TABLET Take 1 tablet by mouth once d* FLUTICASONE 50 MCG/ACTUATION * Use 2 Sprays in each nostril * NICOTINE 21 MG/24 HR DAILY TR* Apply 1 Patch as directed yoly* CHOLECALCIFEROL (VITAMIN D3) * Take 1,000 Units by mouth onc* ALBUTEROL SULFATE 2.5 MG/3 ML* Use 3 mL via nebulizer every * COMPOUNDED PRESCRIPTION Home oxygen : 3 Litre per min* DEXTROMETHORPHAN-GUAIFENESIN * Take 10 mL by mouth every 6 h* MELOXICAM 15 MG TABLET TAKE ONE TABLET BY MOUTH ONCE* VITAMIN B COMPLEX CAPSULE TAKE ONE CAPSULE BY MOUTH YOLY* LIDOCAINE 5 % TOPICAL PATCH Apply 1 Patch as directed yoly* BUDESONIDE-FORMOTEROL HFA 160* Inhale 2 Puffs as instructed * X OMEPRAZOLE 20 MG CAPSULE,GHASSAN* Take 1 capsule by mouth daily* ACETAMINOPHEN 500 MG TABLET EVERY 6 HOURS NEEDED VITAMIN B COMPLEX TABLET Take 1 tablet by mouth once d* MULTIVITAMIN TABLET Take 1 tablet by mouth once d* Problem List As Of Date 08/19/2018 Noted Resolved Pulpitis [K04.01] INVALID FOR* OTHER LUNG DISEASE NEC [J98.4] INVALID FOR*03/09/2008 Tobacco use disorder [F17.200] INVALID FOR* Priority: L More... Acute Bronchitis [J20.9] INVALID FOR* Chronic Airway Obstruction, not Elsewhere Class*INVALID FOR* Morbid obesity [E66.01] Priority: L More... Back pain [M54.9] More... Osteochondroma, multiple [Q78.6] More... Asthma [J45.909] Depression with anxiety [F41.8] Asthma exacerbation [J45.901] INVALID FOR* SOB (shortness of breath) [R06.02] INVALID FOR* Fibromyalgia [M79.7] INVALID FOR* Priority: L More... History of section [Z98.891] INVALID FOR* More... Obesity in [O99.210] INVALID FOR*03/07/2018 More... Supervision of normal [Z34.90] INVALID FOR*03/07/2018 Family history of seizure disorder [Z82.0] INVALID FOR* More... Encounter for sterilization [Z30.2] INVALID FOR* More... cardiac anomaly affecting , ante*INVALID FOR*03/07/2018 [Z34.90] INVALID FOR*03/07/2018 COPD exacerbation (HCC) [J44.1] INVALID FOR*03/24/2018 Priority: A More... Obesity, Class III, BMI >= 40 E66.01 [E66.01] INVALID FOR* Healthcare maintenance [Z00.00] INVALID FOR*03/24/2018 Priority: M More... On home O2 [Z99.81] INVALID FOR* Encounter Status:Closed by OTILIA YODERUSER on 09/19/18 PROGRESS Observed: 07/23/2018 Status: COMPLETED Source: [place] 7:56 AM [facility] REPOSITORY HNO ID: [id number] Author: Negar Branch Service: (none) Author Type: Physician Type: Progress Notes Filed: 07/23/2018 9:00 AM Note Text: [facility] New Patient Evaluation PATIENT NAME: Yobany Londono DATE OF SERVICE: July 23, 2018 CONSULTING PROVIDER: [place] [id number] # Ed [facility] [id number] REASON FOR VISIT: stated she had one sleep study and it determined she needed a bipap when she sleeps, stated September 11, 2018 scheduled for another sleep study HPI: Yobany Londono is a 38 year old female on home O2 at 3L at night, with history significant for COPD and obesity. She had a sleep study done on June 19, 2018, that showed sleep related hypoventilation with hypoxia/hypercapnia, with wake supine end-tidal CO2 at 40 mmHg, and maximum being 58 mmHg. Wake TcpCO2 was 60 mmHg. The study was started in room air, with 2L supplemental O2 added later. Though average AHI was low at 0.6, there were airflow limitations noted that did not qualify for sleep disordered events per criteria, and with supplemental O2 that can mask sleep disordered breathing events, her severity may be underestimated. SLEEP-WAKE SCHEDULE She is a self-described morning person. Bedtime: 9:30 PM. She does not have a hard time falling asleep. Wake time: 5 AM, with an alarm. Depends on how tired she is After falling asleep: she wakes up 1 time(s) per night, because of due to her child's medical issue. On weekends, she maintains the same sleep schedule. Average total sleep time (in a 24 hour period): 5 hours at night and take a nap sometimes during the day for about 2-3 hours. The 5 hours sleep depends if her son was able to sleep well that night. SLEEP-RELATED DETAILS Preferred sleep position: right side Breathing disturbances and other behaviors during sleep: stopping breathing during sleep sometimes. Bruxism: No GERD or aspiration: Yes Waking up with heart pounding or racing: No Anxiety or rumination: yes stated she has anxiety and depression She reports having an urge to move the legs. The urge to move the legs only occurs in the evening or nighttime. The urge to move the legs begins or worsens during periods of rest or inactivity (e.g. lying or sitting). Stated she has the urge to move the legs when she is sitting. she stated the veins in her legs are black and blue in her thirties and the cause her legs to go numb or feel like a abrahan horse that occurs in the top half of her feet. The urge to move the legs is partially or totally relieved by movements such as walking or stretching, at least as long as the activity continues. The urge to move the legs occurs 4-5 nights per week and began since she turned 33. There is no known history of iron deficiency or anemia. She has been told that she has leg kicking during sleep. She reports history of nightmares and night terrors. Black sleepiness score is 11/24. As long as she does not take the Celexa during the day she does not feel sleepy She does not report sleep paralysis or sleep-related hallucinations or cataplexy. She used to smoke a pack a day for 23 years, has not had a cigarette for 48 hours. WAKE-RELATED DETAILS She does not work. She does have difficulty with memory. Stated if something happens 12 years ago she will forget She denies falling asleep or dozing off when driving. She does not take naps. Takes one nap per day She does drink caffeinated beverages. She drinks 4 cups of coffee in the morning There has not been a recent change in weight. SLEEP FUNCTIONAL OUTCOME MEASURES See end of note for questionnaire answers. 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 - ORAL SURGERY PROCEDURE teeth removed - PAST SURGICAL HISTORY OF TM tubes - REMOVAL OF TONSILS,<12 Y/O Tonsillectomy - TUBAL LIGATION ACTIVE PROBLEM LIST Pulpitis Tobacco Use Disorder Acute Bronchitis Chronic Airway Obstruction, Not Elsewhere Classified Morbid obesity Back Pain Osteochondroma, Multiple Asthma Depression With Anxiety Asthma Exacerbation Sob (Shortness of Breath) Fibromyalgia History of Section Family History of Seizure Disorder Encounter for Sterilization Obesity, Class III, BMI >= 40 E66.01 On Home O2 Allergies As of Date: 07/23/2018 Allergen Noted Reaction SEASONAL ALLERGIES 05/04/2013 Intolerance PENICILLINS 02/11/2007 Rash and Vomiting Fully Assessed 07/23/2018 CURRENT MEDICATIONS: guaiFENesin (ROBITUSSIN) 100 mg/5 mL syrup Take 10 mL by mouth four times daily as needed for Cough. dicyclomine (BENTYL) 10 mg capsule Take 2 capsules by mouth three times daily as needed. albuterol HFA (VENTOLIN HFA) 90 mcg/actuation inhaler Inhale 2 Puffs as instructed every 6 hours as needed for Wheezing/Shortness of Breath. loratadine (CLARITIN) 10 mg tablet Take 1 tablet by mouth once daily as needed. FOR ALLERGY SYMPTOMS fluticasone (FLONASE) 50 mcg/actuation nasal spray Use 2 Sprays in each nostril once daily. Rinse mouth after use. nicotine (NICODERM) 21 mg/24 hr Apply 1 Patch as directed every 24 hours. Cholecalciferol, Vitamin D3, (VITAMIN D) 1,000 unit cap Take 1,000 Units by mouth once daily. albuterol (PROVENTIL) 2.5 mg /3 mL (0.083 %) nebulizer solution Use 3 mL via nebulizer every 4 hours as needed for Wheezing/Shortness of Breath. Use over 5-15minutes. COMPOUNDED PRESCRIPTION Home oxygen : 3 Litre per minute with exercise and at hours of sleep via nasal canula with conserving device Associated diagnosis : COPD guaiFENesin-dextromethorphan (ROBITUSSIN DM) 100-10 mg/5 mL syrup Take 10 mL by mouth every 6 hours as needed for Cough. meloxicam (MOBIC) 15 mg tablet TAKE ONE TABLET BY MOUTH ONCE DAILY WITH FOOD B Complex Vitamins capsule TAKE ONE CAPSULE BY MOUTH EVERY DAY lidocaine (LIDODERM) 5 % Apply 1 Patch as directed every 24 hours. budesonide-formoterol (SYMBICORT) 160-4.5 mcg/actuation inhaler Inhale 2 Puffs as instructed twice daily. omeprazole (PRILOSEC) 20 mg capsule Take 1 capsule by mouth daily before breakfast. 1/2 hr before meal. acetaminophen (TYLENOL) 500 mg tablet EVERY 6 HOURS NEEDED citalopram (CELEXA) 40 mg tablet Take 1 tablet by mouth once daily. vitamin b complex (B COMPLETE) tab Take 1 tablet by mouth once daily. multivitamin tablet Take 1 tablet by mouth once daily. REVIEW OF SYSTEMS Patient complained of frequent headaches, sometimes woke up with them. No dizziness. No visual, hearing or swallowing problem. No chest pain. There is shortness of breath when weather is humid or hot. No constipation or diarrhea. If she drinks a lot of fluid before bedtime, she noticed nocturnal incontinence. Sometimes her legs would get numb when she gets up. SOCIAL HISTORY Social History Substance Use Topics - Smoking status: Current Some Day Smoker Packs/day: 0.50 Years: 15.00 Types: Cigarettes Start date: 1994 - Smokeless tobacco: Never Used Comment: stated has not had a cigarette for 48 hours - Alcohol use No Comment: rare wine cooler- not while FAMILY HISTORY FAMILY HISTORY Problem Relation Age of Onset - Diabetes Father - Hypertension Mother - Cancer Mother liver cancer - other (osteoarthritis) Mother - Heart Maternal Grandmother - Cancer Maternal Grandmother - Diabetes Paternal Grandfather - Prostate Cancer Paternal Grandfather - Stroke Paternal Grandmother - Heart Sister hole in heart - Breast Cancer Sister - other (osteochondroma) Son - other (osteochondroma) Son - Emphysema Maternal Aunt - COPD Maternal Aunt Her son has sleep apnea, one other son has sleep walking, another has night terrors. PHYSICAL EXAMINATION: Vital Signs: BP 135/73 (BP Site: Right Arm, BP Position: Sitting, BP Cuff Size: Regular Adult) Pulse 73 Resp 20 Ht 154.9 cm (5' 1) Wt 131.5 kg (290 lb) SpO2 94% BMI 54.80 kg/m? PHYSICAL EXAM: General appearance: Alert and oriented, with truncal obese habitus Neck circumference: 19.5 inches Eyes: PERRL ENT : Nasal congestion absent. Posterior airspace: House tongue position 4, with decreased lateral dimension. No dentition. Chest: Regular S1 and S2, Lungs with mild wheezes in general to auscultation There is mild lower extremities edema. Radial pulse normal, no carotid artery bruits. Extremities: strength is good IMPRESSION/PLAN: 1. Sleep related hypoventilation hypoxia/hypercapnia 2. COPD 3. Morbid obesity with BMI 54.8 Ms. Londono has a recent sleep study that showed sleep related hypoxia/hypercapnia, likely due to her underlying COPD and obesity. Though average AHI is low, it can be underestimated for the severity of her sleep disordered breathing. She is tired, besides her hypoventilation, it could also be from taking care of her son, which may wake up in the middle of the night. We congratulate her of quitting smoking. She will be returning for another night of BiPAP titration, starting out with room air first, with TcpCO2. Prior to the study, she is to continue with her nocturnal O2. We would like her to return to the sleep center after her study. Maday Mas RN Reviewed and edited by Negar Branch M.D. This is a level 4 consultation. CNOV Observed: 07/23/2018 Status: COMPLETED Source: [place] 7:40 AM [facility] REPOSITORY Office Visit (NEUR) YOBANY LONDONO ([id number]) 1980 [facility] Date Time Provider Department 07/23/18 7:40 AM [facility] During your visit today, we recorded the following information about you: Pulse Respiration Blood pressure Weight 73/minute 20/minute 135/73 131.5 kg Height 1.549 m Negar Branch MD 07/23/2018 9:00 AM Signed [facility] New Patient Evaluation PATIENT NAME: Yobany Londono DATE OF SERVICE: July 23, 2018 CONSULTING PROVIDER: [place] [id number] # Ed [facility] [id number] REASON FOR VISIT: stated she had one sleep study and it determined she needed a bipap when she sleeps, stated September 11, 2018 scheduled for another sleep study HPI: Yobany Londono is a 38 year old female on home O2 at 3L at night, with history significant for COPD and obesity. She had a sleep study done on June 19, 2018, that showed sleep related hypoventilation with hypoxia/hypercapnia, with wake supine end-tidal CO2 at 40 mmHg, and maximum being 58 mmHg. Wake TcpCO2 was 60 mmHg. The study was started in room air, with 2L supplemental O2 added later. Though average AHI was low at 0.6, there were airflow limitations noted that did not qualify for sleep disordered events per criteria, and with supplemental O2 that can mask sleep disordered breathing events, her severity may be underestimated. SLEEP-WAKE SCHEDULE She is a self-described morning person. Bedtime: 9:30 PM. She does not have a hard time falling asleep. Wake time: 5 AM, with an alarm. Depends on how tired she is After falling asleep: she wakes up 1 time(s) per night, because of due to her child's medical issue. On weekends, she maintains the same sleep schedule. Average total sleep time (in a 24 hour period): 5 hours at night and take a nap sometimes during the day for about 2-3 hours. The 5 hours sleep depends if her son was able to sleep well that night. SLEEP-RELATED DETAILS Preferred sleep position: right side Breathing disturbances and other behaviors during sleep: stopping breathing during sleep sometimes. Bruxism: No GERD or aspiration: Yes Waking up with heart pounding or racing: No Anxiety or rumination: yes stated she has anxiety and depression She reports having an urge to move the legs. The urge to move the legs only occurs in the evening or nighttime. The urge to move the legs begins or worsens during periods of rest or inactivity (e.g. lying or sitting). Stated she has the urge to move the legs when she is sitting. she stated the veins in her legs are black and blue in her thirties and the cause her legs to go numb or feel like a abrahan horse that occurs in the top half of her feet. The urge to move the legs is partially or totally relieved by movements such as walking or stretching, at least as long as the activity continues. The urge to move the legs occurs 4-5 nights per week and began since she turned 33. There is no known history of iron deficiency or anemia. She has been told that she has leg kicking during sleep. She reports history of nightmares and night terrors. Black sleepiness score is 11/24. As long as she does not take the Celexa during the day she does not feel sleepy She does not report sleep paralysis or sleep-related hallucinations or cataplexy. She used to smoke a pack a day for 23 years, has not had a cigarette for 48 hours. WAKE-RELATED DETAILS She does not work. She does have difficulty with memory. Stated if something happens 12 years ago she will forget She denies falling asleep or dozing off when driving. She does not take naps. Takes one nap per day She does drink caffeinated beverages. She drinks 4 cups of coffee in the morning There has not been a recent change in weight. SLEEP FUNCTIONAL OUTCOME MEASURES See end of note for questionnaire answers. 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 - ORAL SURGERY PROCEDURE teeth removed - PAST SURGICAL HISTORY OF TM tubes - REMOVAL OF TONSILS,<12 Y/O Tonsillectomy - TUBAL LIGATION ACTIVE PROBLEM LIST Pulpitis Tobacco Use Disorder Acute Bronchitis Chronic Airway Obstruction, Not Elsewhere Classified Morbid obesity Back Pain Osteochondroma, Multiple Asthma Depression With Anxiety Asthma Exacerbation Sob (Shortness of Breath) Fibromyalgia History of Section Family History of Seizure Disorder Encounter for Sterilization Obesity, Class III, BMI >= 40 E66.01 On Home O2 Allergies As of Date: 07/23/2018 Allergen Noted Reaction SEASONAL ALLERGIES 05/04/2013 Intolerance PENICILLINS 02/11/2007 Rash and Vomiting Fully Assessed 07/23/2018 CURRENT MEDICATIONS: guaiFENesin (ROBITUSSIN) 100 mg/5 mL syrup Take 10 mL by mouth four times daily as needed for Cough. dicyclomine (BENTYL) 10 mg capsule Take 2 capsules by mouth three times daily as needed. albuterol HFA (VENTOLIN HFA) 90 mcg/actuation inhaler Inhale 2 Puffs as instructed every 6 hours as needed for Wheezing/Shortness of Breath. loratadine (CLARITIN) 10 mg tablet Take 1 tablet by mouth once daily as needed. FOR ALLERGY SYMPTOMS fluticasone (FLONASE) 50 mcg/actuation nasal spray Use 2 Sprays in each nostril once daily. Rinse mouth after use. nicotine (NICODERM) 21 mg/24 hr Apply 1 Patch as directed every 24 hours. Cholecalciferol, Vitamin D3, (VITAMIN D) 1,000 unit cap Take 1,000 Units by mouth once daily. albuterol (PROVENTIL) 2.5 mg /3 mL (0.083 %) nebulizer solution Use 3 mL via nebulizer every 4 hours as needed for Wheezing/Shortness of Breath. Use over 5-15minutes. COMPOUNDED PRESCRIPTION Home oxygen : 3 Litre per minute with exercise and at hours of sleep via nasal canula with conserving device Associated diagnosis : COPD guaiFENesin-dextromethorphan (ROBITUSSIN DM) 100-10 mg/5 mL syrup Take 10 mL by mouth every 6 hours as needed for Cough. meloxicam (MOBIC) 15 mg tablet TAKE ONE TABLET BY MOUTH ONCE DAILY WITH FOOD B Complex Vitamins capsule TAKE ONE CAPSULE BY MOUTH EVERY DAY lidocaine (LIDODERM) 5 % Apply 1 Patch as directed every 24 hours. budesonide-formoterol (SYMBICORT) 160-4.5 mcg/actuation inhaler Inhale 2 Puffs as instructed twice daily. omeprazole (PRILOSEC) 20 mg capsule Take 1 capsule by mouth daily before breakfast. 1/2 hr before meal. acetaminophen (TYLENOL) 500 mg tablet EVERY 6 HOURS NEEDED citalopram (CELEXA) 40 mg tablet Take 1 tablet by mouth once daily. vitamin b complex (B COMPLETE) tab Take 1 tablet by mouth once daily. multivitamin tablet Take 1 tablet by mouth once daily. REVIEW OF SYSTEMS Patient complained of frequent headaches, sometimes woke up with them. No dizziness. No visual, hearing or swallowing problem. No chest pain. There is shortness of breath when weather is humid or hot. No constipation or diarrhea. If she drinks a lot of fluid before bedtime, she noticed nocturnal incontinence. Sometimes her legs would get numb when she gets up. SOCIAL HISTORY Social History Substance Use Topics - Smoking status: Current Some Day Smoker Packs/day: 0.50 Years: 15.00 Types: Cigarettes Start date: 1994 - Smokeless tobacco: Never Used Comment: stated has not had a cigarette for 48 hours - Alcohol use No Comment: rare wine cooler- not while FAMILY HISTORY FAMILY HISTORY Problem Relation Age of Onset - Diabetes Father - Hypertension Mother - Cancer Mother liver cancer - other (osteoarthritis) Mother - Heart Maternal Grandmother - Cancer Maternal Grandmother - Diabetes Paternal Grandfather - Prostate Cancer Paternal Grandfather - Stroke Paternal Grandmother - Heart Sister hole in heart - Breast Cancer Sister - other (osteochondroma) Son - other (osteochondroma) Son - Emphysema Maternal Aunt - COPD Maternal Aunt Her son has sleep apnea, one other son has sleep walking, another has night terrors. PHYSICAL EXAMINATION: Vital Signs: BP 135/73 (BP Site: Right Arm, BP Position: Sitting, BP Cuff Size: Regular Adult) Pulse 73 Resp 20 Ht 154.9 cm (5' 1) Wt 131.5 kg (290 lb) SpO2 94% BMI 54.80 kg/m? PHYSICAL EXAM: General appearance: Alert and oriented, with truncal obese habitus Neck circumference: 19.5 inches Eyes: PERRL ENT : Nasal congestion absent. Posterior airspace: House tongue position 4, with decreased lateral dimension. No dentition. Chest: Regular S1 and S2, Lungs with mild wheezes in general to auscultation There is mild lower extremities edema. Radial pulse normal, no carotid artery bruits. Extremities: strength is good IMPRESSION/PLAN: 1. Sleep related hypoventilation hypoxia/hypercapnia 2. COPD 3. Morbid obesity with BMI 54.8 Ms. Londono has a recent sleep study that showed sleep related hypoxia/hypercapnia, likely due to her underlying COPD and obesity. Though average AHI is low, it can be underestimated for the severity of her sleep disordered breathing. She is tired, besides her hypoventilation, it could also be from taking care of her son, which may wake up in the middle of the night. We congratulate her of quitting smoking. She will be returning for another night of BiPAP titration, starting out with room air first, with TcpCO2. Prior to the study, she is to continue with her nocturnal O2. We would like her to return to the sleep center after her study. Maday Mas RN Reviewed and edited by Negar Branch M.D. This is a level 4 consultation. Negar Branch MD 07/23/2018 8:33 AM Signed 1. Please schedule for your sleep study. Continue with your home oxygen at night before the study. Referring Provider: ADARSH GUERRA) [[id number]] Allergies As of Date: 07/23/2018 Noted Allergy Reaction SEASONAL ALLERGIES 05/04/2013 5 - Intolerance PENICILLINS 02/11/2007 2 - Rash 11 - Vomiting Comments: JUST SENSITIVITY TO PCN PER DR FAJARDO Date Reviewed: 07/23/2018 Reviewed by: Maday (Rn) TONY Mas - Fully Assessed Reason for Visit: New Patient [[id number]] Cmt: sleep, obesity, hypoventilation sydrome Primary Visit Diagnosis:Sleep-related hypoventilation due to medical condition [G47.36] Other Visit Diagnosis:Morbid obesity (HCC) [E66.01] Prescriptions as of 07/23/2018 Sig: GUAIFENESIN 100 MG/5 ML ORAL * Take 10 mL by mouth four time* DICYCLOMINE 10 MG CAPSULE Take 2 capsules by mouth thre* ALBUTEROL SULFATE HFA 90 MCG/* Inhale 2 Puffs as instructed * LORATADINE 10 MG TABLET Take 1 tablet by mouth once d* FLUTICASONE 50 MCG/ACTUATION * Use 2 Sprays in each nostril * NICOTINE 21 MG/24 HR DAILY TR* Apply 1 Patch as directed yoly* CHOLECALCIFEROL (VITAMIN D3) * Take 1,000 Units by mouth onc* ALBUTEROL SULFATE 2.5 MG/3 ML* Use 3 mL via nebulizer every * COMPOUNDED PRESCRIPTION Home oxygen : 3 Litre per min* DEXTROMETHORPHAN-GUAIFENESIN * Take 10 mL by mouth every 6 h* MELOXICAM 15 MG TABLET TAKE ONE TABLET BY MOUTH ONCE* VITAMIN B COMPLEX CAPSULE TAKE ONE CAPSULE BY MOUTH YOLY* LIDOCAINE 5 % TOPICAL PATCH Apply 1 Patch as directed yoly* BUDESONIDE-FORMOTEROL HFA 160* Inhale 2 Puffs as instructed * OMEPRAZOLE 20 MG CAPSULE,GHASSAN* Take 1 capsule by mouth daily* ACETAMINOPHEN 500 MG TABLET EVERY 6 HOURS NEEDED CITALOPRAM 40 MG TABLET Take 1 tablet by mouth once d* VITAMIN B COMPLEX TABLET Take 1 tablet by mouth once d* MULTIVITAMIN TABLET Take 1 tablet by mouth once d* Problem List As Of Date 07/23/2018 Noted Resolved Pulpitis [K04.01] INVALID FOR* OTHER LUNG DISEASE NEC [J98.4] INVALID FOR*03/09/2008 Tobacco use disorder [F17.200] INVALID FOR* Priority: L More... Acute Bronchitis [J20.9] INVALID FOR* Chronic Airway Obstruction, not Elsewhere Class*INVALID FOR* Morbid obesity [E66.01] Priority: L More... Back pain [M54.9] More... Osteochondroma, multiple [Q78.6] More... Asthma [J45.909] Depression with anxiety [F41.8] Asthma exacerbation [J45.901] INVALID FOR* SOB (shortness of breath) [R06.02] INVALID FOR* Fibromyalgia [M79.7] INVALID FOR* Priority: L More... History of section [Z98.891] INVALID FOR* More... Obesity in [O99.210] INVALID FOR*03/07/2018 More... Supervision of normal [Z34.90] INVALID FOR*03/07/2018 Family history of seizure disorder [Z82.0] INVALID FOR* More... Encounter for sterilization [Z30.2] INVALID FOR* More... cardiac anomaly affecting , ante*INVALID FOR*03/07/2018 [Z34.90] INVALID FOR*03/07/2018 COPD exacerbation (HCC) [J44.1] INVALID FOR*03/24/2018 Priority: A More... Obesity, Class III, BMI >= 40 E66.01 [E66.01] INVALID FOR* Healthcare maintenance [Z00.00] INVALID FOR*03/24/2018 Priority: M More... On home O2 [Z99.81] INVALID FOR* Other instructions from your clinician: 1. Please schedule for your sleep study. Continue with your home oxygen at night before the study. Disposition: Return for report after sleep study. Follow-up and Disposition History Recorded Encounter Status:Closed by NEGAR BRANCH MD on 07/23/18 PROGRESS Observed: 07/18/2018 Status: COMPLETED Source: [place] 11:24 AM [facility] REPOSITORY HNO ID: [id number] Author: Marcelino Kurtz Service: (none) Author Type: Physician Type: Progress Notes Filed: 07/18/2018 5:48 PM Note Text: PERTINENT CARDIAC HISTORY ZEPEDA Obesity Tobacco use IVA - untreated HL HTN ADHERENCE TO GUIDELINES GWEN-I or ARB for HF with prior LVEF<40 (NQF 0081) - N/A ASA or Plavix for ASHD (NQF 0067) - N/A Beta brian for ASHD with prior NM or prior LVEF<40 (NQF 0070) - N/A Beta brian for HF with prior LVEF<40 (NQF 0083) - N/A GWEN-I or ARB for ASHD with DM or prior LVEF<40 (NQF 0066) - N/A Statin therapy for ASHD or FHL or DM - N/A BMI documented and plan if >25 (NQF 0421) - lifestyle recommendation form Tobacco use screening and referral (NQF 0028) - lifestyle recommendation form Recommendation for whole food, plant based diet - lifestyle recommendation form CLINICAL IMPRESSION/PLAN: Yobany Londono has multiple reasons for exercise intolerance, the most significant of which are her obesity and severe lung disease. She is severely deconditioned. There is currently no evidence for pulmonary hypertension, but she is a set up to develop pickwickian syndrome in the future. Her left ventricular function is normal and she has no structural heart disease. No further cardiac evaluation is recommended. Obviously, her pulmonary status should be optimized. 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 Recommend that she have follow-up echocardiography in a few years. Thank you for asking me to see and make recommendations on Yobany Londono. This report is available to you in the shared medical record. Written and verbal health teaching given to patient, patient verbalizes understanding and agrees with treatment plan. DIAGNOSIS FOR VISIT: Dyspnea on exertion HISTORY OF PRESENT ILLNESS Yobany Londono is a 38-year-old woman who is seen in consultation at the request of Sho Lawson CNP, for recommendations regarding exercise intolerance. She has morbid obesity and chronic lung disease including reversible airway disease and sleep apnea. She recently had an echocardiogram which was surprisingly negative for pulmonary hypertension. She reports chronic exercise intolerance which has worsened over the last several years. She has a family history of congenital heart disease and a sister had a procedure on her heart to fix a hole. She has had no chest discomfort. She denies orthopnea. She's had chronic edema. She denies TIAs, amaurosis, claudication, palpitations, syncope. ALLERGIES: ALLERGIES Allergen Reactions - Seasonal Allergies Intolerance - Penicillins Rash, Vomiting JUST SENSITIVITY TO PCN PER DR FAJARDO CURRENT OUTPATIENT MEDICATIONS: dicyclomine (BENTYL) 10 mg capsule Take 2 capsules by mouth three times daily as needed. albuterol HFA (VENTOLIN HFA) 90 mcg/actuation inhaler Inhale 2 Puffs as instructed every 6 hours as needed for Wheezing/Shortness of Breath. loratadine (CLARITIN) 10 mg tablet Take 1 tablet by mouth once daily as needed. FOR ALLERGY SYMPTOMS fluticasone (FLONASE) 50 mcg/actuation nasal spray Use 2 Sprays in each nostril once daily. Rinse mouth after use. nicotine (NICODERM) 21 mg/24 hr Apply 1 Patch as directed every 24 hours. Cholecalciferol, Vitamin D3, (VITAMIN D) 1,000 unit cap Take 1,000 Units by mouth once daily. albuterol (PROVENTIL) 2.5 mg /3 mL (0.083 %) nebulizer solution Use 3 mL via nebulizer every 4 hours as needed for Wheezing/Shortness of Breath. Use over 5-15minutes. COMPOUNDED PRESCRIPTION Home oxygen : 3 Litre per minute with exercise and at hours of sleep via nasal canula with conserving device Associated diagnosis : COPD guaiFENesin-dextromethorphan (ROBITUSSIN DM) 100-10 mg/5 mL syrup Take 10 mL by mouth every 6 hours as needed for Cough. meloxicam (MOBIC) 15 mg tablet TAKE ONE TABLET BY MOUTH ONCE DAILY WITH FOOD B Complex Vitamins capsule TAKE ONE CAPSULE BY MOUTH EVERY DAY lidocaine (LIDODERM) 5 % Apply 1 Patch as directed every 24 hours. budesonide-formoterol (SYMBICORT) 160-4.5 mcg/actuation inhaler Inhale 2 Puffs as instructed twice daily. omeprazole (PRILOSEC) 20 mg capsule Take 1 capsule by mouth daily before breakfast. 1/2 hr before meal. acetaminophen (TYLENOL) 500 mg tablet EVERY 6 HOURS NEEDED citalopram (CELEXA) 40 mg tablet Take 1 tablet by mouth once daily. vitamin b complex (B COMPLETE) tab Take 1 tablet by mouth once daily. multivitamin tablet Take 1 tablet by mouth once daily. 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 - ORAL SURGERY PROCEDURE teeth removed - PAST SURGICAL HISTORY OF TM tubes - REMOVAL OF TONSILS,<14 Y/O Tonsillectomy - TUBAL LIGATION FAMILY HISTORY Problem Relation Age of Onset - Diabetes Father - Hypertension Mother - Cancer Mother liver cancer - other (osteoarthritis) Mother - Heart Maternal Grandmother - Cancer Maternal Grandmother - Diabetes Paternal Grandfather - Prostate Cancer Paternal Grandfather - Stroke Paternal Grandmother - Heart Sister hole in heart - Breast Cancer Sister - other (osteochondroma) Son - other (osteochondroma) Son - Emphysema Maternal Aunt - COPD Maternal Aunt Social History Marital status: Spouse name: Years of education: Number of children: Occupational History Occupation Employer Comment unemployed, disabi* Social History Main Topics Smoking status: Current Every Day Smoker Packs/day: 0.50 Years: 15.00 Types: Cigarettes Start date: 1994 Smokeless tobacco: Never Used Comment: 2 smokers in childhood home. Spouse smokes in current . Family stress limiting quit efforts. No use trying to get spouse to quit. Alcohol use: No Comment: rare wine cooler- not while Drug use: No Sexual activity: Yes Partners with: Male control/protection: None Social History Narrative Mother 2011. Father needs her help. 2 sons. REVIEW OF SYSTEMS: General: No chills, fever, weight loss, night sweats. SHEENT: No change in vision or auditory acuity. Respiratory: No productive cough. Cardiac: As noted above. GI: No melena. : No dysuria. Musculoskeletal: Chronic myalgias. Neurologic: No strokes. Psychiatric: No depression. Endocrine: No diabetes. Hematologic: No anemia. PHYSICAL EXAMINATION: S/he is alert and in no distress VITAL SIGNS: BP 106/76 Pulse 68 Ht 5' 1 (1.55m) Wt 291 lb 6.4 oz (132.2kg) BMI 55.09 kg/(m2). SHEENT: Skin is warm and dry. Pupils are round and reactive. Retinal vessels are grossly unremarkable. No xanthelasmas appreciated. Pharynx is benign. There is no oral cyanosis. Neck: supple. No adenopathy or thyroid enlargement. Chest: Wheezes and rhonchi throughout. There is moderate expiratory prolongation. Trachea is midline. Air entry is equal. There is no chest wall tenderness. Cardiac: Regular rhythm. S1 and S2 are normal. PMI is nondisplaced. There are no murmurs, rubs or gallops. No click is heard. Carotids are brisk without bruits. JVP is less than 10 cm. Abdomen: Soft and nontender. There is morbid obesity. Exam is quite difficult. There are no pulsatile masses or bruits. No liver enlargement. Bowel sounds are active. : Deferred. Extremities: No edema. Venous insufficiency is present. Pulses are intact and symmetrical. No clubbing or cyanosis. No femoral bruits. Neurologic: Grossly normal motor and sensory. S/he is alert and oriented x4. Musculoskeletal: No joint deformities. EKG shows sinus tachycardia. There are minor repolarization changes. Labs were reviewed. CBC is normal. Renal function is normal. Echocardiogram was recently performed and was personally reviewed. Left ventricular function is normal. The right ventricle is difficult to see. There is no evidence of pulmonary hypertension. There is no gross valvular disease. Image quality is fair. Electronically Signed: Marcelino Kurtz MD July 18, 2018 11:24 AM CC: Juany Holt MD CNOV Observed: 07/18/2018 Status: COMPLETED Source: [place] 11:15 AM [facility] REPOSITORY Office Visit ([facility]) YOBANY LONDONO ([id number]) 1980 F DARYL Date Time Provider Department 07/18/18 11:15 AM MARCELINO KURTZ During your visit today, we recorded the following information about you: Pulse Blood pressure Weight Height 68/minute 106/76 132.2 kg 1.549 m Marcelino Kurtz MD 07/18/2018 11:23 AM Signed LIFESTYLE CHANGE A healthy lifestyle is the most important component of your overall treatment plan. 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 EAT A WHOLE FOOD, PLANT BASED DIET The nutrition your body gets is more important than the medicine you take. What matters most is the overall way you eat. We encourage you to minimize the use of animal products (which include dairy and all meats except fatty fish) and use whole, unprocessed plant foods to provide your protein, vitamins and other nutrients. We have a lot of information to share with you on this topic. This is not a diet. It is a way of life that you will keep with you. EXERCISE REGULARLY It is not important to spend hours in the gym, lifting weights and perspiring heavily. A total of 2-3 hours per week of aerobic (causing you to be moderately short of breath) exercise is sufficient to improve your health. Talk to us before you begin a new exercise program, if you have heart disease or experience shortness of breath or chest pain. REDUCE STRESS Chronic emotional and physical stress leads to disease. Ways of reducing stress include meditation, visualization, prayer, yoga and other forms of relaxation therapy. Consistency is the thao. Find a technique that works for you and do it every day. CULTIVATE RELATIONSHIPS Loneliness and isolation have a major negative impact on health. Seek out others who can love, care for and nurture you. Avoid hurtful relationships. MAINTAIN IDEAL BODY WEIGHT The best way to do this is to do all the things above. Our bodies naturally find the right weight if we keep moving and feed ourselves the right food. If your BMI is greater than 25, we strongly recommend a referral to a weight management program. Please speak to us or your family physician about available programs. AVOID NICOTINE IN ALL FORMS This includes all tobacco products, whether chewed, smoked, vaped, or rubbed on the skin. Smoking cessation programs, which can make use of tobacco substitutes, medications to suppress cravings and behavior management, are available. Please contact your family physician about programs in your area. Marcelino Kurtz MD 07/18/2018 5:48 PM Signed PERTINENT CARDIAC HISTORY ZEPEDA Obesity Tobacco use IVA - untreated HL HTN ADHERENCE TO GUIDELINES GWEN-I or ARB for HF with prior LVEF<40 (NQF 0081) - N/A ASA or Plavix for ASHD (NQF 0067) - N/A Beta brian for ASHD with prior NM or prior LVEF<40 (NQF 0070) - N/A Beta brian for HF with prior LVEF<40 (NQF 0083) - N/A GWEN-I or ARB for ASHD with DM or prior LVEF<40 (NQF 0066) - N/A Statin therapy for ASHD or FHL or DM - N/A BMI documented and plan if >25 (NQF 0421) - lifestyle recommendation form Tobacco use screening and referral (NQF 0028) - lifestyle recommendation form Recommendation for whole food, plant based diet - lifestyle recommendation form CLINICAL IMPRESSION/PLAN: Yobany Londono has multiple reasons for exercise intolerance, the most significant of which are her obesity and severe lung disease. She is severely deconditioned. There is currently no evidence for pulmonary hypertension, but she is a set up to develop pickwickian syndrome in the future. Her left ventricular function is normal and she has no structural heart disease. No further cardiac evaluation is recommended. Obviously, her pulmonary status should be optimized. 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 Recommend that she have follow-up echocardiography in a few years. Thank you for asking me to see and make recommendations on Yobany Londono. This report is available to you in the shared medical record. Written and verbal health teaching given to patient, patient verbalizes understanding and agrees with treatment plan. DIAGNOSIS FOR VISIT: Dyspnea on exertion HISTORY OF PRESENT ILLNESS Yobany Londono is a 38-year-old woman who is seen in consultation at the request of Sho Lawson CNP, for recommendations regarding exercise intolerance. She has morbid obesity and chronic lung disease including reversible airway disease and sleep apnea. She recently had an echocardiogram which was surprisingly negative for pulmonary hypertension. She reports chronic exercise intolerance which has worsened over the last several years. She has a family history of congenital heart disease and a sister had a procedure on her heart to fix a hole. She has had no chest discomfort. She denies orthopnea. She's had chronic edema. She denies TIAs, amaurosis, claudication, palpitations, syncope. ALLERGIES: ALLERGIES Allergen Reactions - Seasonal Allergies Intolerance - Penicillins Rash, Vomiting JUST SENSITIVITY TO PCN PER DR FAJARDO CURRENT OUTPATIENT MEDICATIONS: dicyclomine (BENTYL) 10 mg capsule Take 2 capsules by mouth three times daily as needed. albuterol HFA (VENTOLIN HFA) 90 mcg/actuation inhaler Inhale 2 Puffs as instructed every 6 hours as needed for Wheezing/Shortness of Breath. loratadine (CLARITIN) 10 mg tablet Take 1 tablet by mouth once daily as needed. FOR ALLERGY SYMPTOMS fluticasone (FLONASE) 50 mcg/actuation nasal spray Use 2 Sprays in each nostril once daily. Rinse mouth after use. nicotine (NICODERM) 21 mg/24 hr Apply 1 Patch as directed every 24 hours. Cholecalciferol, Vitamin D3, (VITAMIN D) 1,000 unit cap Take 1,000 Units by mouth once daily. albuterol (PROVENTIL) 2.5 mg /3 mL (0.083 %) nebulizer solution Use 3 mL via nebulizer every 4 hours as needed for Wheezing/Shortness of Breath. Use over 5-15minutes. COMPOUNDED PRESCRIPTION Home oxygen : 3 Litre per minute with exercise and at hours of sleep via nasal canula with conserving device Associated diagnosis : COPD guaiFENesin-dextromethorphan (ROBITUSSIN DM) 100-10 mg/5 mL syrup Take 10 mL by mouth every 6 hours as needed for Cough. meloxicam (MOBIC) 15 mg tablet TAKE ONE TABLET BY MOUTH ONCE DAILY WITH FOOD B Complex Vitamins capsule TAKE ONE CAPSULE BY MOUTH EVERY DAY lidocaine (LIDODERM) 5 % Apply 1 Patch as directed every 24 hours. budesonide-formoterol (SYMBICORT) 160-4.5 mcg/actuation inhaler Inhale 2 Puffs as instructed twice daily. omeprazole (PRILOSEC) 20 mg capsule Take 1 capsule by mouth daily before breakfast. 1/2 hr before meal. acetaminophen (TYLENOL) 500 mg tablet EVERY 6 HOURS NEEDED citalopram (CELEXA) 40 mg tablet Take 1 tablet by mouth once daily. vitamin b complex (B COMPLETE) tab Take 1 tablet by mouth once daily. multivitamin tablet Take 1 tablet by mouth once daily. PAST MEDICAL HISTORY Diagnosis Date - Arthritis - Back pain since epidural 2001 - Chronic obstructive pulmonary disease (COPD) ([facility]) - Depression with anxiety - Fibromyalgia shoulders - Hypertension diet controlled - Morbid obesity (HCC) - Osteochondroma, multiple 2002 left 5th rib, humerus, tib, fib - Tobacco use disorder - Unspecified asthma(493.90) PAST SURGICAL HISTORY Procedure Laterality Date - ANESTH, SECTION - DELIVERY ONLY 2001,2002 , low cervical x 3. - ORAL SURGERY PROCEDURE teeth removed - PAST SURGICAL HISTORY OF TM tubes - REMOVAL OF TONSILS,<14 Y/O Tonsillectomy - TUBAL LIGATION FAMILY HISTORY Problem Relation Age of Onset - Diabetes Father - Hypertension Mother - Cancer Mother liver cancer - other (osteoarthritis) Mother - Heart Maternal Grandmother - Cancer Maternal Grandmother - Diabetes Paternal Grandfather - Prostate Cancer Paternal Grandfather - Stroke Paternal Grandmother - Heart Sister hole in heart - Breast Cancer Sister - other (osteochondroma) Son - other (osteochondroma) Son - Emphysema Maternal Aunt - COPD Maternal Aunt Social History Marital status: Spouse name: Years of education: Number of children: Occupational History Occupation Employer Comment unemployed, disabi* Social History Main Topics Smoking status: Current Every Day Smoker Packs/day: 0.50 Years: 15.00 Types: Cigarettes Start date: 1994 Smokeless tobacco: Never Used Comment: 2 smokers in childhood home. Spouse smokes in current . Family stress limiting quit efforts. No use trying to get spouse to quit. Alcohol use: No Comment: rare wine cooler- not while Drug use: No Sexual activity: Yes Partners with: Male control/protection: None Social History Narrative Mother 2011. Father needs her help. 2 sons. REVIEW OF SYSTEMS: General: No chills, fever, weight loss, night sweats. SHEENT: No change in vision or auditory acuity. Respiratory: No productive cough. Cardiac: As noted above. GI: No melena. : No dysuria. Musculoskeletal: Chronic myalgias. Neurologic: No strokes. Psychiatric: No depression. Endocrine: No diabetes. Hematologic: No anemia. PHYSICAL EXAMINATION: S/he is alert and in no distress VITAL SIGNS: BP 106/76 Pulse 68 Ht 5' 1 (1.55m) Wt 291 lb 6.4 oz (132.2kg) BMI 55.09 kg/(m2). SHEENT: Skin is warm and dry. Pupils are round and reactive. Retinal vessels are grossly unremarkable. No xanthelasmas appreciated. Pharynx is benign. There is no oral cyanosis. Neck: supple. No adenopathy or thyroid enlargement. Chest: Wheezes and rhonchi throughout. There is moderate expiratory prolongation. Trachea is midline. Air entry is equal. There is no chest wall tenderness. Cardiac: Regular rhythm. S1 and S2 are normal. PMI is nondisplaced. There are no murmurs, rubs or gallops. No click is heard. Carotids are brisk without bruits. JVP is less than 10 cm. Abdomen: Soft and nontender. There is morbid obesity. Exam is quite difficult. There are no pulsatile masses or bruits. No liver enlargement. Bowel sounds are active. : Deferred. Extremities: No edema. Venous insufficiency is present. Pulses are intact and symmetrical. No clubbing or cyanosis. No femoral bruits. Neurologic: Grossly normal motor and sensory. S/he is alert and oriented x4. Musculoskeletal: No joint deformities. EKG shows sinus tachycardia. There are minor repolarization changes. Labs were reviewed. CBC is normal. Renal function is normal. Echocardiogram was recently performed and was personally reviewed. Left ventricular function is normal. The right ventricle is difficult to see. There is no evidence of pulmonary hypertension. There is no gross valvular disease. Image quality is fair. Electronically Signed: Marcelino Kurtz MD July 18, 2018 11:24 AM CC: Juany Holt MD Referring Provider: SHO CHIN ([facility]) [[id number]] Allergies As of Date: 07/18/2018 Noted Allergy Reaction SEASONAL ALLERGIES 05/04/2013 5 - Intolerance PENICILLINS 02/11/2007 2 - Rash 11 - Vomiting Comments: JUST SENSITIVITY TO PCN PER DR FAJARDO Date Reviewed: 07/18/2018 Reviewed by: Africa Arias - Fully Assessed Reason for Visit: New Patient [[id number]] Primary Visit Diagnosis:ZEPEDA (dyspnea on exertion) [R06.09] Prescriptions as of 07/18/2018 Sig: DICYCLOMINE 10 MG CAPSULE Take 2 capsules by mouth thre* ALBUTEROL SULFATE HFA 90 MCG/* Inhale 2 Puffs as instructed * LORATADINE 10 MG TABLET Take 1 tablet by mouth once d* FLUTICASONE 50 MCG/ACTUATION * Use 2 Sprays in each nostril * NICOTINE 21 MG/24 HR DAILY TR* Apply 1 Patch as directed yoly* CHOLECALCIFEROL (VITAMIN D3) * Take 1,000 Units by mouth onc* ALBUTEROL SULFATE 2.5 MG/3 ML* Use 3 mL via nebulizer every * COMPOUNDED PRESCRIPTION Home oxygen : 3 Litre per min* DEXTROMETHORPHAN-GUAIFENESIN * Take 10 mL by mouth every 6 h* MELOXICAM 15 MG TABLET TAKE ONE TABLET BY MOUTH ONCE* VITAMIN B COMPLEX CAPSULE TAKE ONE CAPSULE BY MOUTH YOLY* LIDOCAINE 5 % TOPICAL PATCH Apply 1 Patch as directed yoly* BUDESONIDE-FORMOTEROL HFA 160* Inhale 2 Puffs as instructed * OMEPRAZOLE 20 MG CAPSULE,GHASSAN* Take 1 capsule by mouth daily* ACETAMINOPHEN 500 MG TABLET EVERY 6 HOURS NEEDED CITALOPRAM 40 MG TABLET Take 1 tablet by mouth once d* VITAMIN B COMPLEX TABLET Take 1 tablet by mouth once d* MULTIVITAMIN TABLET Take 1 tablet by mouth once d* Problem List As Of Date 07/18/2018 Noted Resolved Pulpitis [K04.01] INVALID FOR* OTHER LUNG DISEASE NEC [J98.4] INVALID FOR*03/09/2008 Tobacco use disorder [F17.200] INVALID FOR* Priority: L More... Acute Bronchitis [J20.9] INVALID FOR* Chronic Airway Obstruction, not Elsewhere Class*INVALID FOR* Morbid obesity [E66.01] Priority: L More... Back pain [M54.9] More... Osteochondroma, multiple [Q78.6] More... Asthma [J45.909] Depression with anxiety [F41.8] Asthma exacerbation [J45.901] INVALID FOR* SOB (shortness of breath) [R06.02] INVALID FOR* Fibromyalgia [M79.7] INVALID FOR* Priority: L More... History of section [Z98.891] INVALID FOR* More... Obesity in [O99.210] INVALID FOR*03/07/2018 More... Supervision of normal [Z34.90] INVALID FOR*03/07/2018 Family history of seizure disorder [Z82.0] INVALID FOR* More... Encounter for sterilization [Z30.2] INVALID FOR* More... cardiac anomaly affecting , ante*INVALID FOR*03/07/2018 [Z34.90] INVALID FOR*03/07/2018 COPD exacerbation (HCC) [J44.1] INVALID FOR*03/24/2018 Priority: A More... Obesity, Class III, BMI >= 40 E66.01 [E66.01] INVALID FOR* Healthcare maintenance [Z00.00] INVALID FOR*03/24/2018 Priority: M More... On home O2 [Z99.81] INVALID FOR* Other instructions from your clinician: LIFESTYLE CHANGE A healthy lifestyle is the most important component of your overall treatment plan. 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 EAT A WHOLE FOOD, PLANT BASED DIET The nutrition your body gets is more important than the medicine you take. What matters most is the overall way you eat. We encourage you to minimize the use of animal products (which include dairy and all meats except fatty fish) and use whole, unprocessed plant foods to provide your protein, vitamins and other nutrients. We have a lot of information to share with you on this topic. This is not a diet. It is a way of life that you will keep with you. EXERCISE REGULARLY It is not important to spend hours in the gym, lifting weights and perspiring heavily. A total of 2-3 hours per week of aerobic (causing you to be moderately short of breath) exercise is sufficient to improve your health. Talk to us before you begin a new exercise program, if you have heart disease or experience shortness of breath or chest pain. REDUCE STRESS Chronic emotional and physical stress leads to disease. Ways of reducing stress include meditation, visualization, prayer, yoga and other forms of relaxation therapy. Consistency is the thao. Find a technique that works for you and do it every day. CULTIVATE RELATIONSHIPS Loneliness and isolation have a major negative impact on health. Seek out others who can love, care for and nurture you. Avoid hurtful relationships. MAINTAIN IDEAL BODY WEIGHT The best way to do this is to do all the things above. Our bodies naturally find the right weight if we keep moving and feed ourselves the right food. If your BMI is greater than 25, we strongly recommend a referral to a weight management program. Please speak to us or your family physician about available programs. AVOID NICOTINE IN ALL FORMS This includes all tobacco products, whether chewed, smoked, vaped, or rubbed on the skin. Smoking cessation programs, which can make use of tobacco substitutes, medications to suppress cravings and behavior management, are available. Please contact your family physician about programs in your area. Follow-up and Disposition History Recorded Encounter Status:Closed by MARCELINO KURTZ MD on 07/18/18 CNOV Observed: 07/11/2018 Status: COMPLETED Source: [place] 3:30 PM [facility] REPOSITORY Office Visit (CARDWS) HOLIDAYYOBANY ([id number]) 1980 F D[place]L Date Time Provider Department 07/11/18 3:30 PM ECHOCARDIOGRAM [facility] CARDWS During your visit today, we recorded the following information about you: Paras Holland RN 07/11/2018 4:00 PM Signed #22 g hep lock started rt forearm x1 attempt, no redness swelling or bleeding noted at insertion site. Flushed with 5ml normal saline without difficulty. opsite dressing applied. Pt tolerated procedure without distress. Total of 3ml definity given and flushed with 5 ml normal saline upon completion, lot # [id number]. Pt tolerated medication without distress. Hep lock removed, catheter intact, no redness, swelling or pain at site. 2x2 gauze dressing applied with paper tape. Pt tolerated procedure without distress. Paras Holland RN Referring Provider: LILIAM LOPEZ [[id number]] Allergies As of Date: 07/11/2018 Noted Allergy Reaction SEASONAL ALLERGIES 05/04/2013 5 - Intolerance PENICILLINS 02/11/2007 2 - Rash 11 - Vomiting Comments: JUST SENSITIVITY TO PCN PER DR FAJARDO Date Reviewed: 06/27/2018 Reviewed by: Liliam Lopez - Fully Assessed Visit Diagnosis:Dyspnea and respiratory abnormalities [R06.00, R06.89] Order(s):ECHO [[id number]] Order #: [id number]: 1 IV START - SPECIFY [[id number]] Order #: [id number]: 1 SALINE LOCK DISCONTINUE [[id number]] Order #: [id number]: 1 perflutren lipid microspheres (DEFINITY) 1.1 mg/mL injectionInject 1.3 mL intravenously one time only for 1 dose.Disp: 1.3 mLRfl: 0 Prescriptions as of 07/11/2018 Sig: PERFLUTREN LIPID MICROSPHERES* Inject 1.3 mL intravenously o* DICYCLOMINE 10 MG CAPSULE Take 2 capsules by mouth thre* ALBUTEROL SULFATE HFA 90 MCG/* Inhale 2 Puffs as instructed * LORATADINE 10 MG TABLET Take 1 tablet by mouth once d* FLUTICASONE 50 MCG/ACTUATION * Use 2 Sprays in each nostril * NICOTINE 21 MG/24 HR DAILY TR* Apply 1 Patch as directed yoly* CHOLECALCIFEROL (VITAMIN D3) * Take 1,000 Units by mouth onc* ALBUTEROL SULFATE 2.5 MG/3 ML* Use 3 mL via nebulizer every * COMPOUNDED PRESCRIPTION Home oxygen : 3 Litre per min* DEXTROMETHORPHAN-GUAIFENESIN * Take 10 mL by mouth every 6 h* MELOXICAM 15 MG TABLET TAKE ONE TABLET BY MOUTH ONCE* VITAMIN B COMPLEX CAPSULE TAKE ONE CAPSULE BY MOUTH YOLY* LIDOCAINE 5 % TOPICAL PATCH Apply 1 Patch as directed yoly* BUDESONIDE-FORMOTEROL HFA 160* Inhale 2 Puffs as instructed * OMEPRAZOLE 20 MG CAPSULE,GHASSAN* Take 1 capsule by mouth daily* ACETAMINOPHEN 500 MG TABLET EVERY 6 HOURS NEEDED CITALOPRAM 40 MG TABLET Take 1 tablet by mouth once d* VITAMIN B COMPLEX TABLET Take 1 tablet by mouth once d* MULTIVITAMIN TABLET Take 1 tablet by mouth once d* Problem List As Of Date 07/11/2018 Noted Resolved Pulpitis [K04.01] INVALID FOR* OTHER LUNG DISEASE NEC [J98.4] INVALID FOR*03/09/2008 Tobacco use disorder [F17.200] INVALID FOR* Priority: L More... Acute Bronchitis [J20.9] INVALID FOR* Chronic Airway Obstruction, not Elsewhere Class*INVALID FOR* Morbid obesity [E66.01] Priority: L More... Back pain [M54.9] More... Osteochondroma, multiple [Q78.6] More... Asthma [J45.909] Depression with anxiety [F41.8] Asthma exacerbation [J45.901] INVALID FOR* SOB (shortness of breath) [R06.02] INVALID FOR* Fibromyalgia [M79.7] INVALID FOR* Priority: L More... History of section [Z98.891] INVALID FOR* More... Obesity in [O99.210] INVALID FOR*03/07/2018 More... Supervision of normal [Z34.90] INVALID FOR*03/07/2018 Family history of seizure disorder [Z82.0] INVALID FOR* More... Encounter for sterilization [Z30.2] INVALID FOR* More... cardiac anomaly affecting , ante*INVALID FOR*03/07/2018 [Z34.90] INVALID FOR*03/07/2018 COPD exacerbation (HCC) [J44.1] INVALID FOR*03/24/2018 Priority: A More... Obesity, Class III, BMI >= 40 E66.01 [E66.01] INVALID FOR* Healthcare maintenance [Z00.00] INVALID FOR*03/24/2018 Priority: M More... On home O2 [Z99.81] INVALID FOR* Visit Notes: >> Paras Holland RN SatJul 11, 2018 3:59 PM Status: Signed #22 g hep lock started rt forearm x1 attempt, no redness swelling or bleeding noted at insertion site. Flushed with 5ml normal saline without difficulty. opsite dressing applied. Pt tolerated procedure without distress. Total of 3ml definity given and flushed with 5 ml normal saline upon completion, lot # [id number]. Pt tolerated medication without distress. Hep lock removed, catheter intact, no redness, swelling or pain at site. 2x2 gauze dressing applied with paper tape. Pt tolerated procedure without distress. Paras Holland RN Prescriptions ordered this encounter Disp Refills Start End PERFLUTREN LIPID MICROSPHERES 1.1 MG* 1.3 * 0 07/11/2018 07/11/2018 Class: In Office Route: INTRAVENOUS Sig: Inject 1.3 mL intravenously one time only for 1 dose. Follow-up and Disposition History Recorded Encounter Status:Closed by PARAS HOLLAND RN on 07/11/18 CT CHEST WO IVCON Observed: 07/11/2018 Status: F Source: [place] 3:25 PM [facility] REPOSITORY * * *Final Report* * * DATE OF EXAM: Jul 11 2018 3:25PM [facility] 0541 - CT CHEST WO IVCON / PROCEDURE REASON: multiple diagnoses * * * * Physician Interpretation * * * * EXAMINATION: CHEST CT WITHOUT CONTRAST CLINICAL HISTORY: Other nonspecific abnormal finding of lung field Dyspnea, unspecified Technique: Spiral CT acquisition of the chest from the thoracic inlet to the upper abdomen without contrast. MQ: CTCWOR_4 CT Dose-Length Product: 528 mGy*cm CT Dose Reduction Employed: mAs-kVp adjusted based on patient size-age Comparison: Multiple prior radiographs, most recent 06/10/2016 RESULT: Limitations: None. Lines, tubes, and devices: None. Lung parenchyma and pleura: No consolidation. No suspicious pulmonary nodule. No pleural effusion. Central airways are patent. Thoracic inlet, heart, and mediastinum: No lymphadenopathy in the axillary, mediastinal, or hilar regions. The thoracic aorta and main pulmonary artery are normal in caliber. The cardiac chambers are normal in size. No coronary artery atherosclerotic calcifications are noted, although the study is not optimized for coronary assessment. No pericardial effusion or thickening. Bones and soft tissues: Numerous sclerotic exostoses noted in the bilateral ribs. On the left, there is a 1 mm sclerotic lesion in the left anterior third rib (series 4, image 56), a subcentimeter lesion in the left anterior fourth rib, a 1.5 x 3.6 cm more heterogeneous lesion in the left anterior fifth rib and a pedunculated 1.9 x 1.2 cm lesion on the left lateral eighth rib. Subtle irregularity in the left lateral sixth rib. 5 mm sclerotic lesions in the right anterolateral 7 and sixth ribs. Upper abdomen: No abnormality in the imaged upper abdomen. IMPRESSION: 1. No CT evidence of acute abnormality. 2. 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 There are bilateral rib lesions, left greater than right, as above. Conference Planner: PSCB Transcribe Date/Time: Jul 11 2018 10:07P Dictated by : TIGIST OWEN MD This examination was interpreted and the report reviewed and electronically signed by: TIGIST OWEN MD on Jul 11 2018 10:19PM EST [id number] CNOV Observed: 06/27/2018 Status: COMPLETED Source: [place] 3:00 PM [facility] REPOSITORY Office Visit (PULMWS) HOLIDAYYOBANY ([id number]) 1980 F D[place]L Date Time Provider Department 06/27/18 3:00 PM LILIAM LOPEZ During your visit today, we recorded the following information about you: Pulse Respiration Blood pressure Weight 90/minute 18/minute 104/60 132 kg Height 1.549 m Liliam Lopez PA-C 06/27/2018 4:00 PM Signed [facility] [place], 06/27/18: HPI: The patient is here for follow up of obstructive lung disease. PMH: HTN, Fibromyalgia, Depression, Arthritis. Current daily smoker. 0.5 ppd. The last Pulmonary Clinic visit was 06/20/18. Since then the patient has not required ED care for exacerbation. There has been no hospital admission for exacerbation. Claims to be consistently compliant with prescribed maintenance Rx. 4-5 times daily rescue bronchodilator use, depending on the humidity. Daily productive cough that she attributes to sinus drainage and post nasal drip. It is worse when I lay down. Green thick sputum. No hemoptysis. No pleuritic chest pain. Minimal wheezing. No dyspnea at rest. Exertional dyspnea has not changed. Primarily with physical housework and chores. Supplemental oxygen 2 L with rest, 3 L with exertion via Inogen. 3 lpm at night. DME: [facility]. Reports daytime tiredness. Snoring at night. Previous PSG done on 06/19/18 indicated sleep related hypoventilation and hypoxemia. Recommendations included BiPAP titration study with TcCO2 monitoring, initiating the study on RA. PMH: Updated with patient today. FAMH: Updated with patient today. SOCH: Updated with patient today. Immunization History Administered Date(s) Administered DTaP + HIB 1980 06/14/1983 09/01/1983 07/17/1984 IPV [birth year] 06/14/1983 07/17/1984 Influenza Seasonal Inj Age 3+ 11/19/2014 Influenza Seasonal Inj Quadrivalent Age 3+ 11/09/2015 09/03/2016 12/20/2017 Influenza Vaccine, Split-Non Spec 12/11/2013 MMR 09/01/1983 07/10/1995 Pneumovax 12/11/2013 Tdap (Age 7+) 05/23/2016 ROS: General: Generally feels tired. Appetite good. Weight stable. Eyes, Ears, nose, throat: Post nasal drip, rhinorrhea. No purulent nasal discharge, epistaxis. No hoarseness. Vision stable. Cardiac: No angina, edema. 2 pillow orthopnea. GI: No heartburn, dysphagia, nausea, vomiting, diarrhea. Uro/GEOLOGICAL ENGINEER: No dysuria, hesitancy, nocturia. Musculoskeletal: No pain. Neuro: No headache, focal weakness, tremor. Skin: No rash. Otherwise negative. Allergies were reviewed and updated, and medications were reconciled with the patient. PHYSICAL EXAMINATION: BP 104/60 Pulse 90 Resp 18 Ht 5' 1 (1.55m) Wt 291 lb (132.0kg) SpO2 92% BMI 55.01 kg/(m2). O2: 2 L pulse dosed. Gen: No acute distress. Cooperative with examination. ENT: Oral hygeine and dentition poor. Pharynx clear. No halitosis. Resp: No stridor, accessory respiratory muscle use, supra- sternal or intercostal retractions. No wheezes, crackles. CV: Regular rythm. Heart tones normal. Radial pulses normal. Abd: Non distended. MSK: No kyphoscoliosis. Ext: Warm and well perfused. No clubbing, cyanosis, edema. Skin: No rash, ecchymoses. Neuro: Mental status normal. Affect normal. No tremor. DATA REVIEW: DATE: 06/27/18 06/20/18 FVC 1.86 (55 % pred) FEV1 0.86 (30 % pred) FEV1/FVC 0.46 TLC 3.87 (84 % pred) DLco 16.6 (72 % pred) Exhaled nitric oxide (Trevin), 06/27/18: 15 (normal < 25). Labs, 06/20/18 Alpha 1 Antitrypsin 161 90 - 200 mg/dL Final [facility] IgE 5.0 <114 kU/L Final [facility] CXR, 04/12/18 [facility] read only There is an ill-defined opacity in the right and left lung adjacent to the anterior aspect of the left fifth rib which may represent a bone lesion or a lung mass. Further evaluation by CT scan may be helpful. IMPRESSION/RECOMMEND: COPD, very severe, FEV1 30 % predicted with restriction. Alpha-1 antitrypsin normal Trevin and Total IgE normal making allergic sensitivity less likely. Patient's lung function is very severe for her age despite her smoking history. Will obtain a CT chest and echocardiogram to further evaluate. - Continue Symbicort 2 inhalations twice daily. Rinse mouth after each use to help prevent oral thrush. - Use nebulizer or albuterol inhaler up to every 4 hours for wheezing/shortness of breath. - Start Mucinex 1-2 tablets twice daily to assist with secretions. - Recommend annual influenza vaccine, ideally between September 01 and October 02. Tobacco use disorder. It is imperative that you stop smoking! Dyspnea. Most likely multifactorial. - Check echocardiogram to evaluate for pulmonary hypertension. Further recommendations to follow. Sleep related hypoventilation and hypoxemia. - Recommendations included BiPAP titration study with TcCO2 monitoring, initiating the study on RA. - Orders placed by PCP office. - I think your daytime tiredness will improve once you are adequately treated with BiPAP. Lung nodule seen on imaging. - CXR from [facility] reviewed. - CT chest to further evaluate. Further recommendations to follow. I addressed the questions of the patient, and she expressed understanding and acceptance of my answers. Liliam Lopez PA-C [facility] [place] [address] [phone] Liliam Lopez PA-C 06/27/2018 3:54 PM Signed COPD, very severe, FEV1 30 % predicted with restriction. Alpha-1 antitrypsin normal Trevin and Total IgE normal making allergic sensitivity less likely. Patient's lung function is very severe for her age despite her smoking history. Will obtain a CT chest and echocardiogram to further evaluate. - Continue Symbicort 2 inhalations twice daily. Rinse mouth after each use to help prevent oral thrush. - Use nebulizer or albuterol inhaler up to every 4 hours for wheezing/shortness of breath. - Start Mucinex 1-2 tablets twice daily to assist with secretions. - Recommend annual influenza vaccine, ideally between September 01 and October 02. Tobacco use disorder. It is imperative that you stop smoking! Dyspnea. Most likely multifactorial. - Check echocardiogram to evaluate for pulmonary hypertension. Further recommendations to follow. Sleep related hypoventilation and hypoxemia. - Recommendations included BiPAP titration study with TcCO2 monitoring, initiating the study on RA. - Orders placed by PCP office. - I think your daytime tiredness will improve once you are adequately treated with BiPAP. Lung nodule seen on imaging. - CT chest to further evaluate. Further recommendations to follow. Referring Provider: AGATA GARDINER [[id number]] Allergies As of Date: 06/27/2018 Noted Allergy Reaction SEASONAL ALLERGIES 05/04/2013 5 - Intolerance PENICILLINS 02/11/2007 2 - Rash 11 - Vomiting Comments: JUST SENSITIVITY TO PCN PER DR FAJARDO Date Reviewed: 06/27/2018 Reviewed by: Liliam Lopez - Fully Assessed Primary Visit Diagnosis:COPD, very severe (HCC) [J44.9] Other Visit Diagnoses:Lung nodules [R91.8] Dyspnea and respiratory abnormalities [R06.00, R06.89] Tobacco use disorder [F17.200] Sleep-related hypoventilation [G47.36] Order(s):CT CHEST WO IVCON [[id number]] Order #: [id number] FUTURE ECHO [[id number]] Order #: [id number]: 1 FUTURE Prescriptions as of 06/27/2018 Sig: DICYCLOMINE 10 MG CAPSULE Take 2 capsules by mouth thre* ALBUTEROL SULFATE HFA 90 MCG/* Inhale 2 Puffs as instructed * LORATADINE 10 MG TABLET Take 1 tablet by mouth once d* FLUTICASONE 50 MCG/ACTUATION * Use 2 Sprays in each nostril * NICOTINE 21 MG/24 HR DAILY TR* Apply 1 Patch as directed yloy* CHOLECALCIFEROL (VITAMIN D3) * Take 1,000 Units by mouth onc* ALBUTEROL SULFATE 2.5 MG/3 ML* Use 3 mL via nebulizer every * DEXTROMETHORPHAN-GUAIFENESIN * Take 10 mL by mouth every 6 h* VITAMIN B COMPLEX CAPSULE TAKE ONE CAPSULE BY MOUTH YOLY* LIDOCAINE 5 % TOPICAL PATCH Apply 1 Patch as directed yoly* BUDESONIDE-FORMOTEROL HFA 160* Inhale 2 Puffs as instructed * OMEPRAZOLE 20 MG CAPSULE,GHASSAN* Take 1 capsule by mouth daily* CITALOPRAM 40 MG TABLET Take 1 tablet by mouth once d* COMPOUNDED PRESCRIPTION Home oxygen : 3 Litre per min* MELOXICAM 15 MG TABLET TAKE ONE TABLET BY MOUTH ONCE* ACETAMINOPHEN 500 MG TABLET EVERY 6 HOURS NEEDED VITAMIN B COMPLEX TABLET Take 1 tablet by mouth once d* MULTIVITAMIN TABLET Take 1 tablet by mouth once d* Problem List As Of Date 06/27/2018 Noted Resolved Pulpitis [K04.01] INVALID FOR* OTHER LUNG DISEASE NEC [J98.4] INVALID FOR*03/09/2008 Tobacco use disorder [F17.200] INVALID FOR* Priority: L More... Acute Bronchitis [J20.9] INVALID FOR* Chronic Airway Obstruction, not Elsewhere Class*INVALID FOR* Morbid obesity [E66.01] Priority: L More... Back pain [M54.9] More... Osteochondroma, multiple [Q78.6] More... Asthma [J45.909] Depression with anxiety [F41.8] Asthma exacerbation [J45.901] INVALID FOR* SOB (shortness of breath) [R06.02] INVALID FOR* Fibromyalgia [M79.7] INVALID FOR* Priority: L More... History of section [Z98.891] INVALID FOR* More... Obesity in [O99.210] INVALID FOR*03/07/2018 More... Supervision of normal [Z34.90] INVALID FOR*03/07/2018 Family history of seizure disorder [Z82.0] INVALID FOR* More... Encounter for sterilization [Z30.2] INVALID FOR* More... cardiac anomaly affecting , ante*INVALID FOR*03/07/2018 [Z34.90] INVALID FOR*03/07/2018 COPD exacerbation (HCC) [J44.1] INVALID FOR*03/24/2018 Priority: A More... Obesity, Class III, BMI >= 40 E66.01 [E66.01] INVALID FOR* Healthcare maintenance [Z00.00] INVALID FOR*03/24/2018 Priority: M More... On home O2 [Z99.81] INVALID FOR* Other instructions from your clinician: COPD, very severe, FEV1 30 % predicted with restriction. Alpha-1 antitrypsin normal Trevin and Total IgE normal making allergic sensitivity less likely. Patient's lung function is very severe for her age despite her smoking history. Will obtain a CT chest and echocardiogram to further evaluate. - Continue Symbicort 2 inhalations twice daily. Rinse mouth after each use to help prevent oral thrush. - Use nebulizer or albuterol inhaler up to every 4 hours for wheezing/shortness of breath. - Start Mucinex 1-2 tablets twice daily to assist with secretions. - Recommend annual influenza vaccine, ideally between September 01 and October 02. Tobacco use disorder. It is imperative that you stop smoking! Dyspnea. Most likely multifactorial. - Check echocardiogram to evaluate for pulmonary hypertension. Further recommendations to follow. Sleep related hypoventilation and hypoxemia. - Recommendations included BiPAP titration study with TcCO2 monitoring, initiating the study on RA. - Orders placed by PCP office. - I think your daytime tiredness will improve once you are adequately treated with BiPAP. Lung nodule seen on imaging. - CT chest to further evaluate. Further recommendations to follow. Medications Discontinued During This Encounter cyclobenzaprine (FLEXERIL) 10 mg tab* 14 t* 0 03/11/2018 06/27/2018 Class: Print RX Route: ORAL Sig: Take 1 tablet by mouth every 8 hours as needed. Disc: Course of therapy completed Disposition: Return in about 8 weeks (around 08/22/2018). Follow-up and Disposition History Recorded Encounter Status:Closed by LILIAM LOPEZ on 06/27/18 PROGRESS Observed: 06/27/2018 Status: COMPLETED Source: [place] 2:35 PM [facility] REPOSIT[facility] HNO ID: [id number] Author: Liliam Lopez Service: (none) Author Type: Physician Bulk Plant Agent Type: Progress Notes Filed: 06/27/2018 4:00 PM Note Text: [facility] [place], 06/27/18: HPI: The patient is here for follow up of obstructive lung disease. PMH: HTN, Fibromyalgia, Depression, Arthritis. Current daily smoker. 0.5 ppd. The last Pulmonary Clinic visit was 06/20/18. Since then the patient has not required ED care for exacerbation. There has been no hospital admission for exacerbation. Claims to be consistently compliant with prescribed maintenance Rx. 4-5 times daily rescue bronchodilator use, depending on the humidity. Daily productive cough that she attributes to sinus drainage and post nasal drip. It is worse when I lay down. Green thick sputum. No hemoptysis. No pleuritic chest pain. Minimal wheezing. No dyspnea at rest. Exertional dyspnea has not changed. Primarily with physical housework and chores. Supplemental oxygen 2 L with rest, 3 L with exertion via Inogen. 3 lpm at night. DME: [facility]. Reports daytime tiredness. Snoring at night. Previous PSG done on 06/19/18 indicated sleep related hypoventilation and hypoxemia. Recommendations included BiPAP titration study with TcCO2 monitoring, initiating the study on RA. PMH: Updated with patient today. FAMH: Updated with patient today. SOCH: Updated with patient today. Immunization History Administered Date(s) Administered DTaP + HIB 1982 06/14/1983 09/01/1983 07/17/1984 IPV 1982 1982 06/14/1983 07/17/1984 Influenza Seasonal Inj Age 3+ 11/19/2014 Influenza Seasonal Inj Quadrivalent Age 3+ 11/09/2015 09/03/2016 12/20/2017 Influenza Vaccine, Split-Non Spec 12/11/2013 MMR 09/01/1983 07/10/1995 Pneumovax 12/11/2013 Tdap (Age 7+) 05/23/2016 ROS: General: Generally feels tired. Appetite good. Weight stable. Eyes, Ears, nose, throat: Post nasal drip, rhinorrhea. No purulent nasal discharge, epistaxis. No hoarseness. Vision stable. Cardiac: No angina, edema. 2 pillow orthopnea. GI: No heartburn, dysphagia, nausea, vomiting, diarrhea. Uro/GEOLOGICAL ENGINEER: No dysuria, hesitancy, nocturia. Musculoskeletal: No pain. Neuro: No headache, focal weakness, tremor. Skin: No rash. Otherwise negative. Allergies were reviewed and updated, and medications were reconciled with the patient. PHYSICAL EXAMINATION: BP 104/60 Pulse 90 Resp 18 Ht 5' 1 (1.55m) Wt 291 lb (132.0kg) SpO2 92% BMI 55.01 kg/(m2). O2: 2 L pulse dosed. Gen: No acute distress. Cooperative with examination. ENT: Oral hygeine and dentition poor. Pharynx clear. No halitosis. Resp: No stridor, accessory respiratory muscle use, supra- sternal or intercostal retractions. No wheezes, crackles. CV: Regular rythm. Heart tones normal. Radial pulses normal. Abd: Non distended. MSK: No kyphoscoliosis. Ext: Warm and well perfused. No clubbing, cyanosis, edema. Skin: No rash, ecchymoses. Neuro: Mental status normal. Affect normal. No tremor. DATA REVIEW: DATE: 06/27/18 06/20/18 FVC 1.86 (55 % pred) FEV1 0.86 (30 % pred) FEV1/FVC 0.46 TLC 3.87 (84 % pred) DLco 16.6 (72 % pred) Exhaled nitric oxide (Trevin), 06/27/18: 15 (normal < 25). Labs, 06/20/18 Alpha 1 Antitrypsin 161 90 - 200 mg/dL Final [facility] IgE 5.0 <114 kU/L Final [facility] CXR, 04/12/18 [facility] read only There is an ill-defined opacity in the right and left lung adjacent to the anterior aspect of the left fifth rib which may represent a bone lesion or a lung mass. Further evaluation by CT scan may be helpful. IMPRESSION/RECOMMEND: COPD, very severe, FEV1 30 % predicted with restriction. Alpha-1 antitrypsin normal Trevin and Total IgE normal making allergic sensitivity less likely. Patient's lung function is very severe for her age despite her smoking history. Will obtain a CT chest and echocardiogram to further evaluate. - Continue Symbicort 2 inhalations twice daily. Rinse mouth after each use to help prevent oral thrush. - Use nebulizer or albuterol inhaler up to every 4 hours for wheezing/shortness of breath. - Start Mucinex 1-2 tablets twice daily to assist with secretions. - Recommend annual influenza vaccine, ideally between September 01 and October 02. Tobacco use disorder. It is imperative that you stop smoking! Dyspnea. Most likely multifactorial. - Check echocardiogram to evaluate for pulmonary hypertension. Further recommendations to follow. Sleep related hypoventilation and hypoxemia. - Recommendations included BiPAP titration study with TcCO2 monitoring, initiating the study on RA. - Orders placed by PCP office. - I think your daytime tiredness will improve once you are adequately treated with BiPAP. Lung nodule seen on imaging. - CXR from [facility] reviewed. - CT chest to further evaluate. Further recommendations to follow. I addressed the questions of the patient, and she expressed understanding and acceptance of my answers. [facility] [place] [facility] [place] [address] [place] [id number] EMERGENCY DEPARTMENT Observed: 06/23/2018 Status: F Source: [place] SUMMARY 7:21 AM [facility] [place] [facility] Medical Records Department [address] [place] [address] Emergency Department Summary 06/23/18 0054 MR#: [id number] Acct: [id number] Name: YOBANY LONDONO Rep #: [id number] : 1980 38 From: Vinnie Mendoza MD PCP: Juany Holt MD Status: DEP ER - ER Visit Summary Date of Service: 06/23/18 Chief Complaint: Vomiting/diarrhea History of Present Illness: The patient is a [address] Holt. She reports approximately 9:00 this evening she began having vomiting and diarrhea. She is on 2-3 times. No blood or emesis. She states that she did this despite Bentyl and Zofran. She also had 5 episodes of diarrhea. No blood in her stools or black tarry stools. She reports that she has cramping upper abdominal pain that is 10 out of 10 severity. Is worsened by movement relieved by remaining still. She denies any dysuria or frequency. Patient reports this began approximate 1 hour after eating high barbecue wings, pizza with mushrooms/sausage/green peppers. Patient denies sick contacts. Has not been camping out of the country. Does not drink well water. No recent antibiotic use. She denies any history of fatty food intolerance. She reports she has had the similar symptoms previously with food poisoning. Physical Examination: Vitals: Stable. Afebrile. General: Well-nourished and well-developed. Head: Normocephalic atraumatic. Neck: Supple, no lymphadenopathy. No JVD. Nontender. Cardiovascular: Regular rate and rhythm. No murmurs. Respiratory: No respiratory distress. Clear to auscultation bilaterally. Abdominal: Soft, mild diffuse upper tenderness to palpation, nondistended, normal bowel sounds. No guarding, rebound, or peritoneal signs. Back: Nontender. Extremities: Nontender, no edema. Skin: Normal color, no rash. Neurologic: Alert and oriented 3. Cranial nerves II through XII are intact. Normal strength and sensation. Psych: Normal affect. Test Results: CBC is marked for 7 neutrophils 75 lymphs at 17. Chem-7 is more for CO2 of 35 and glucose 114. LFTs marked for now a 3.1 globulin 4.4. Lipase negative. test negative. Emergency Department Course and Treatment: Patient is given dose of Toradol and Phenergan IV. She has had no vomiting or diarrhea while here. Treatment Plan: Patient will be discharged with Phenergan. Instructed follow-up her primary care physician 1-2 days not improving. Return to the emergency department for any worsening symptoms. Disposition: To home in improved and stable condition. Impression: 1. Vomiting/diarrhea. This note was generated with [employer] dictation software. It may contain incorrect words, spelling, and punctuation that were not noted in review of the chart prior to signing ED Disposition - Plan for ED Patient: Chief Complaint: Nausea/Vomiting/Diarrhea Instructions: ED Food Poison Or Gastroenteritis Prescriptions: proMETHazine suppository [Phenergan Suppository] 25 mg RECTAL Q6H PRN PRN #6 suppos. PRN Reason: Nausea proMETHazine tablet [Phenergan] 25 mg PO Q6H PRN PRN #10 tablet PRN Reason: Nausea Referrals: Juany Holt MD [Primary Care Provider] - 1-2 Days if not improving What to do if you have Problems For any increased pain, shortness of breath, bleeding, nausea or vomiting, chest pain, or any unexpected problems, contact your Primary Care Provider. Call [facility] ([phone]) or report to the closest Emergency Room. Call 911 if necessary. 06/23/18 0729 <Electronically signed by Vinnie Mendoza MD> Date Vinnie Mendoza MD Cosigner Signature (If Indicated): Date CC: Juany Holt MD CBC W/DIFF, AUTOMATED Collected: 06/23/2018 Status: F Source: [place] 12:24 AM [facility] [place] TYPE CODE TESTS RESULT OUT OF RANGE REFERENCE UNITS LAB L100.1000 4.4-11.0 K/mm3 Normal WBC 9.8 LAB L100.1200 4.2-5.4 M/mm3 Normal RBC 4.56 LAB L100.1300 12.0-15.0 g/dl Normal HGB 12.9 LAB L100.1400 37-47 % Normal HCT 42.8 LAB L100.1500 81-99 fL Normal MCV 93.9 LAB L100.1600 27.0-32.0 pg Normal MCH 28.3 LAB L100.1700 32-36 g/gl Low MCHC 30.1 LAB L100.1810 11.6-14.6 % High RDW CV 14.9 LAB L100.1820 35.1-43.9 fl High RDW SD 49.8 LAB L100.1900 150-450 K/mm3 Normal PLT 228 LAB L100.2000 6.2-12.0 fl Normal MPV 11.5 LAB L100.2100 47-70 % High NEUT% 74.8 LAB L100.2200 19-41 % Low LY% 17.3 LAB L100.2300 0-10 % Normal MONO% 5.9 LAB L100.2400 0-5 % Normal EO% 1.3 LAB L100.2500 0-1 % Normal BASO% 0.5 LAB L100.2550 0.0-0.9 % Normal IM GRAN % 0.200 Result Comment: IG% - Immature Granulocytes (promyelocytes, myelocytes and metamyelocytes) > 1% indicates that a LEFT SHIFT is Present. LAB L100.2620 2.0-7.7 X10 3/uL Normal Absolute Neut 7.3 LAB L100.2720 0.83-4.51 X10 3/ul Normal Absolute Lymph 1.70 Performed By: #### L100.0100 #### [facility] [address] [place], [address] BASIC METABOLIC Collected: 06/23/2018 Status: F Source: [place] PROFILE (BMP) 12:24 AM [facility] [place] TYPE CODE TESTS RESULT OUT OF RANGE REFERENCE UNITS LAB L501.0100 74-106 mg/dL High GLU 114 Result Comment: Fasting Glucose result from 100 to 125 mg/dL suggests IMPAIRED HOMEOSTASIS per A.D.A. criteria. Please note revised GLUCOSE reference range effective 2017. LAB L501.1000 7-18 mg/dL Normal BUN 16 LAB L501.1100 0.55-1.02 mg/dL Normal CREAT,SERUM 0.59 Result Comment: The validity of the calculated GFR AND GFRAA in patients over 70 years has not been determined. Clinical correlation is essential. LAB L501.1110 >60 mL/min Normal EST GFR 122 Result Comment: Non- GFR Calc LAB L501.1115 >60 mL/min Normal EST GFR - AA 148 Result Comment: GFR Calc LAB L501.1255 ml/min Normal Estimated CRCL 99.47 LAB L501.1300 10-20 RATIO High BUN/CRE 27.0 LAB L501.2200 8.5-10 mg/dL Normal .1 CA 8.5 LAB L501.5300 136-14 mmol/L Normal 5 NA 139 LAB L501.5600 3.5-5. mmol/L Normal 1 K 4.2 LAB L501.5900 98-107 mmol/L Normal CL 102 LAB L501.6100 21.0-3 mmol/L High 2.0 CO2 35.0 LAB L501.6200 5-15 Low GAP 2 Performed By: #### L500.2500, L500.3400, L501.2450 #### [facility] [address] [place], [place], [address] LIVER PROFILE Collected: 06/23/2018 Status: F Source: [place] 12:24 AM [facility] [place] TYPE CODE TESTS RESULT OUT OF RANGE REFERENCE UNITS LAB L501.1500 6.4-8.2 g/dL Normal T PROT 7.5 LAB L501.1800 3.2-5.0 g/dL Low ALB 3.1 LAB L501.1950 2.2-4.2 g/dL High GLOB 4.4 LAB L501.4100 15-37 U/L Normal AST 19 LAB L501.4305 45-117 U/L Normal ALK P 60 LAB L501.4405 13-56 U/L Normal ALT 19 LAB L501.4600 0.20-1.00 mg/dL Normal T BILI 0.30 LAB L501.4700 0.00-0.30 mg/dL Normal D BILI 0.15 Performed By: #### L500.2500, L500.3400, L501.2450 #### [facility] [address] [place], [address] LIPASE Collected: 06/23/2018 Status: F Source: [place] 12:24 AM [facility] [place] TYPE CODE TESTS RESULT OUT OF RANGE REFERENCE UNITS LAB L501.2450 73-393 U/L Normal LIPASE 98 Performed By: #### L500.2500, L500.3400, L501.2450 #### [facility] [address] [place], [address] ,SERUM,HCG QUALI. Collected: Status: F Source: [place] 06/23/2018 12:24 AM [facility] [place] TYPE CODE TESTS RESULT OUT OF REFERENCE UNITS RANGE LAB L700.7000 0-9 Nonpreg Negative Normal HCGSQUAL NEGATIVE LAB L700.6700 =>Qualitative mIU/mL Normal HCG Qual < 1 triggr Performed By: #### L700.6800 #### [facility] [address] [place], [address] ALPHA 1 ANTITRYPSIN Collected: 06/20/2018 Status: F Source: [place] 10:06 AM [facility] REPOSITORY TYPE CODE TESTS RESULT OUT OF REFERENCE UNITS RANGE LAB AAT 90-200 mg/dL Alpha 1 antitrypsin 161 Performed By: #### AAT, IGE #### [facility] [address] [place] [id number] IGE Collected: 06/20/2018 Status: F Source: [place] 10:06 AM [facility] REPOSITORY TYPE CODE TESTS RESULT OUT OF RANGE REFERENCE UNITS LAB IGE <114 kU/L IgE 5.0 Performed By: #### AAT, IGE #### [facility] [address] [place], [place] [address] CNOV Observed: 06/20/2018 Status: COMPLETED Source: [place] 8:30 AM [facility] REPOSITORY Office Visit (PULMWS) JOHNYOBANY CARBAJAL ([id number]) 1980 F [facility] Date Time Provider Department 06/20/18 8:30 AM AGATA GARDINER During your visit today, we recorded the following information about you: Pulse Respiration Blood pressure Weight 81/minute 20/minute 122/62 131.5 kg Height 1.549 m Agata Gardiner MD 06/21/2018 4:17 PM Signed [facility] [place] Consultation Note, 06/20/2018: Introduction: The patient is seen in consultation today for evaluation of COPD, breathing issues. This consultation is requested by Sho Chin APRN, BUFFER CHROME. A copy of this encounter will be made available as a report via [employer] electronic medical record. 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 Pneumonia shortly after . Not released to home until 6 weeks old. Pneumonia again age 7. Hospitalized Freshman year with Double whammy of bronchitis and pneumonia both. Here lately it's been bronchitis. Triggers include hot/humid weather, lower respiratory tract infections. No shortness of breath at rest. ZEPEDA with walking room to room, housework. Alot of daily cough, attributes to sinus drainage/post nasal drip. Variable amounts non-purulent sputum. No hemoptysis. No pleuritic chest pain. Occasional wheezing. Cough occasional wakes from sleep. Claims consistent compliance with Symbicort 160-4.5, 2 inhalations BID with spacer. Uses Albuterol MDI quite alot, with relief. Previous therapies have included Advair, no long acting anti-cholinergic bronchodilator. Last used prednisone for exacerbation of symptoms following 03/2018 ED evaluation and hospitalization for exacerbation of symptoms, on O2 since then; wearing it during sleep. No endotracheal intubation and mechanical ventilation. Claims to sleep variably depending on arthritis activity, frequent interruption due to 4 yo special needs baby. Awakens sluggish. Spouse reports snoring. Sometimes morning headache on waking. No daytime hypersomnolence. Diagnostic Polysomnogram last night. [place], [place]. 1 dog in home. No farming, stable work, birding, spelunking. In 1999 [employer] work. 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 Disabled since due to vision and arthritis. No sandblasting, asbestos exposure, work in manufacturing or processing of adhesives, paint, plastics, wood products. No sustained Rx with Amiodarone, Methotrexate, cancer chemotherapy, external beam radiation therapy. 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 - ORAL SURGERY PROCEDURE teeth removed - PAST SURGICAL HISTORY OF TM tubes - REMOVAL OF TONSILS,<12 Y/O Tonsillectomy - TUBAL LIGATION FAMILY HISTORY Problem Relation Age of Onset - Adopted: Yes - Diabetes Father - Hypertension Mother - Cancer Mother liver cancer - osteoarthritis [OTHER] Mother - Heart Maternal Grandmother - Cancer Maternal Grandmother - Diabetes Paternal Grandfather - Prostate Cancer Paternal Grandfather - Stroke Paternal Grandmother - Heart Sister hole in heart - Breast Cancer Sister - Alcohol/Drug Sister - osteochondroma [OTHER] Son - osteochondroma [OTHER] Son Social History Marital status: Spouse name: Years of education: Number of children: Occupational History Occupation Employer Comment unemployed, disabi* Social History Main Topics Smoking status: Current Every Day Smoker Packs/day: 0.50 Years: 15.00 Types: Cigarettes Smokeless tobacco: Never Used Comment: Trying to quit Alcohol use: No Comment: rare wine cooler- not while Drug use: No Sexual activity: Yes Partners with: Male control/protection: None Social History Narrative Mother 2011. Father needs her help. 2 sons. Immunization History Administered Date(s) Administered DTaP + HIB 1982 06/14/1983 09/01/1983 07/17/1984 IPV 1982 1980 06/14/1983 07/17/1984 Influenza Seasonal Inj Age 3+ 11/19/2014 Influenza Seasonal Inj Quadrivalent Age 3+ 11/09/2015 09/03/2016 12/20/2017 Influenza Vaccine, Split-Non Spec 12/11/2013 MMR 09/01/1983 07/10/1995 Pneumovax 12/11/2013 Tdap (Age 7+) 05/23/2016 MEDICATIONS and ALLERGIES: Reviewed, updated and reconciled with the patient today, as noted in the medication and allergy sections of the encounter. ROS: Reviewed with patient, confirmed as documented by Mariam Sullivan LPN. TO PHYSICAL EXAMINATION: BP 122/62 Pulse 81 Resp 20 Ht 5' 1 (1.55m) Wt 290 lb (131.5kg) SpO2 91% BMI 54.82 kg/(m2). Gen: No acute distress. Cooperative with examination. Morbidly obese. ENT: Sclerae clear. Nares clear. Edentulous. Pharynx clear. Resp: No stridor, accessory respiratory muscle use, supra- sternal or intercostal retractions. A-P diameter normal. No crackles, wheezes. CV: Regular rythm. Heart tones normal. Unable to visualize JVP, HJR. No carotid bruit. Radial pulses normal. Abd: Not distended. MSK: No kyphoscoliosis, joint deformities of the extremities. Ext: Warm and well perfused. No clubbing. No cyanosis. No edema. No sclerodactyly. No Raynaud's. Skin: No rash, eczema, urticaria. Lymph: Unable to appreciate adenopathy in neck, supra-clavicular fossae. Endo: Unable to appreciate goiter. No exophthalmos, onycholysis. Neuro: Mental status normal. No tremor. DATA REVIEW: Spirometry, 06/20/2018 ? Yuliya ? % Ref ? ? ? FVC ?Liters ? ? ? 3.38 ?1.86 ?55 FEV1 ? ? ? Liters ? ? ? 2.81 ?0.86 ?30 FEV1/FVC ? % ? 0.83 ? 0.46 TMV64-84% ?L/sec ? ? ?3.10 ?0.34 ?11 PEF ?L/sec ? ? ? 6.56 ?2.47 ?38 CXR 03/21/2018 Comparison: ?Chest x-ray 02/23/2018 RESULTS: Lines, Tubes, and Devices: ?None Lungs and Pleura: ?The lungs are clear. No pleural effusion or pneumothorax. ? Cardiomediastinal silhouette: ?AP technique accentuates the cardiac silhouette. Other: ?The bones of the chest are unremarkable. IMPRESSION: No radiographic evidence of acute cardiopulmonary abnormality. I have personally and independently reviewed these CXR images and note them to be poorly penetrated. The cardio:thoracic ratio is 164:302. TO ? Component Ref Rng AND Units 03/07/2018 03/21/2018 WBC 3.70 - 11.00 k/uL 11.07 (H) 16.38 (H) RBC 3.90 - 5.20 m/uL 4.65 4.93 Hemoglobin 11.5 - 15.5 g/dL 12.5 13.2 Hematocrit 36.0 - 46.0 % 43.5 45.8 Platelet Count 150 - 400 k/uL 247 287 Eosin% % 0.0 Abs Eosin <0.46 k/uL 0.00 Protein, Total 6.3 - 8.0 g/dL 6.9 Albumin 3.9 - 4.9 g/dL 3.4 (L) Calcium 8.5 - 10.2 mg/dL 8.8 8.9 Bilirubin, Total 0.2 - 1.3 mg/dL 0.4 Alkaline Phosphatase 32 - 117 U/L 55 AST 13 - 35 U/L 18 Glucose 74 - 99 mg/dL 77 106 (H) BUN 7 - 21 mg/dL 12 12 Creatinine 0.58 - 0.96 mg/dL 0.60 0.63 Sodium 136 - 144 mmol/L 138 139 Potassium 3.7 - 5.1 mmol/L 4.0 3.8 Chloride 97 - 105 mmol/L 96 (L) 97 CO2 22 - 30 mmol/L 32 (H) 34 (H) Anion Gap 9 - 18 mmol/L 10 8 (L) ALT 7 - 38 U/L 14 eGFR- >60 >60 eGFR-All Other Races . >60 >60 Absolute nRBC <0.01 k/uL <0.01 IMPRESSION: 1. Very severe COPD vs asthma, FEV1 30% predicted. 2. Tobacco use disorder, continuous. 3. Morbid obesity. Body Mass Index (BMI) today is 54.82 at current weight of 291 pounds. Normal BMI is 18.5-25, corresponding to a goal weight range of 100-150 pounds in an individual 5'1 tall. The patient is at least 140 pounds overweight. - Weight loss is critical. Consider referral to Weight Management program such as Weight Watchers, or to Bariatric Surgery program. Deferred to Primary Care Physician, Juany Holt MD. RECOMMEND: 1. Complete Pulmonary Function Testing with lung volumes, DLCO, Trevin (to assess for eosinophilic airway inflammation). 2. Measure Alpha-1 antitrypsin in light of very severe obstruction at such a young age. . 3. Measure Total IgE to evaluate for concomitant allergic component. Eosinophil count and percentage recently normal. 4. Continuing twice daily Symbicort, 2 inhalations. 5. Continue Albuterol HFA inhaler, 2 inhalations 10?15 minutes prior to activities associated with shortness of breath, and as needed for rescue relief of shortness of breath or wheezing, up to 4 times daily. 6. Continue oxygen as prescribed. 7. Smoking cessation is critical, though likelihood of success is low if spouse won't quit smoking as well. 8. Follow up after these tests to make definitve treatment recommendations. 9. Continue Annual Influenza vaccination. I addressed the questions of the patient, and she expressed understanding and acceptance of my answers. Agata Gardiner MD, [facility] [address] [address] P: [phone] F: [phone] [email or web address] Mariam Sullivan LPN 06/20/2018 8:36 AM Attested Attestation signed by Agata Gardiner at 06/20/2018 8:36 AM Reviewed with patient, confirmed as documented by Mariam Sullivan LPN. TO ROS: General: Generally feels fatigued. Appetite good. Eyes, Ears, nose, throat: notes post nasal drip. notes rhinorrhea. denies purulent nasal discharge. denies epistaxis. denies hoarseness. Vision stable. Cardiac: denies angina, denies edema, denies orthopnea. GI: denies heartburn, using Prilosec. denies dysphagia. denies diarrhea. 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 denies hesitancy. denies nocturia. Menses: regular Musculoskeletal: notes joint and foot pain. Neuro: notes headache, denies focal weakness. denies tremor. Skin: denies rash. Otherwise negative. Agata Gardiner MD 06/20/2018 9:31 AM Signed IMPRESSION: 1. Very severe COPD vs asthma, FEV1 30% predicted. 2. Tobacco use disorder, continuous. 3. Morbid obesity. Body Mass Index (BMI) today is 54.82 at current weight of 291 pounds. Normal BMI is 18.5-25, corresponding to a goal weight range of 100-150 pounds in an individual 5'1 tall. The patient is at least 140 pounds overweight. - Weight loss is critical. Consider referral to Weight Management program such as Weight Watchers, or to Bariatric Surgery program. Deferred to Primary Care Physician, Juany Holt MD. RECOMMEND: 1. Complete Pulmonary Function Testing with lung volumes, DLCO, Trevin (to assess for eosinophilic airway inflammation). 2. Measure Alpha-1 antitrypsin in light of very severe obstruction at such a young age. . 3. Measure Total IgE to evaluate for concomitant allergic component. Eosinophil count and percentage recently normal. 4. Continuing twice daily Symbicort, 2 inhalations. 5. Continue Albuterol HFA inhaler, 2 inhalations 10?15 minutes prior to activities associated with shortness of breath, and as needed for rescue relief of shortness of breath or wheezing, up to 4 times daily. 6. Continue oxygen as prescribed. 7. Smoking cessation is critical, though likelihood of success is low if spouse won't quit smoking as well. 8. Follow up after these tests to make definitve treatment recommendations. 9. Continue Annual Influenza vaccination. Agata Gardiner MD, [facility] [place] [facility] [address] [address] P: [phone] F: [phone] [email or web address] Referring Provider: SELF [200] Allergies As of Date: 06/20/2018 Noted Allergy Reaction SEASONAL ALLERGIES 05/04/2013 5 - Intolerance PENICILLINS 02/11/2007 2 - Rash 11 - Vomiting Comments: JUST SENSITIVITY TO PCN PER DR FAJARDO Date Reviewed: 06/20/2018 Reviewed by: Agata Gardiner - Fully Assessed Reason for Visit: Consult [502] Cmt: Abnormal breathing. Reason For Visit History Recorded Primary Visit Diagnosis:COPD with chronic bronchitis (HCC) [J44.9] Other Visit Diagnoses:Severe persistent asthma without complication [J45.50] Tobacco use disorder, continuous [F17.209] Morbid obesity (HCC) [E66.01] Order(s):NITRIC OXIDE, EXHALED [4247964] Order #: [id number] FUTURE LUNG VOLUMES [0604630] Order #: [id number] FUTURE LUNG DIFFUSION CAPACITY (DLCO) [1038143] Order #: [id number] FUTURE IGE BLD [SQIGE] Order #: [id number] FUTURE [id number] BL [SQAAT] Order #: [id number] FUTURE Prescriptions as of 06/20/2018 Sig: DICYCLOMINE 10 MG CAPSULE Take 2 capsules by mouth thre* ALBUTEROL SULFATE HFA 90 MCG/* Inhale 2 Puffs as instructed * LORATADINE 10 MG TABLET Take 1 tablet by mouth once d* FLUTICASONE 50 MCG/ACTUATION * Use 2 Sprays in each nostril * NICOTINE 21 MG/24 HR DAILY TR* Apply 1 Patch as directed yoly* CHOLECALCIFEROL (VITAMIN D3) * Take 1,000 Units by mouth onc* ALBUTEROL SULFATE 2.5 MG/3 ML* Use 3 mL via nebulizer every * COMPOUNDED PRESCRIPTION Home oxygen : 3 Litre per min* DEXTROMETHORPHAN-GUAIFENESIN * Take 10 mL by mouth every 6 h* MELOXICAM 15 MG TABLET TAKE ONE TABLET BY MOUTH ONCE* VITAMIN B COMPLEX CAPSULE TAKE ONE CAPSULE BY MOUTH YOLY* CYCLOBENZAPRINE 10 MG TABLET Take 1 tablet by mouth every * LIDOCAINE 5 % TOPICAL PATCH Apply 1 Patch as directed yoly* BUDESONIDE-FORMOTEROL HFA 160* Inhale 2 Puffs as instructed * OMEPRAZOLE 20 MG CAPSULE,GHASSAN* Take 1 capsule by mouth daily* ACETAMINOPHEN 500 MG TABLET EVERY 6 HOURS NEEDED CITALOPRAM 40 MG TABLET Take 1 tablet by mouth once d* VITAMIN B COMPLEX TABLET Take 1 tablet by mouth once d* MULTIVITAMIN TABLET Take 1 tablet by mouth once d* Problem List As Of Date 06/20/2018 Noted Resolved Pulpitis [K04.01] INVALID FOR* OTHER LUNG DISEASE NEC [J98.4] INVALID FOR*03/09/2008 Tobacco use disorder [F17.200] INVALID FOR* Priority: L More... Acute Bronchitis [J20.9] INVALID FOR* Chronic Airway Obstruction, not Elsewhere Class*INVALID FOR* Morbid obesity [E66.01] Priority: L More... Back pain [M54.9] More... Osteochondroma, multiple [Q78.6] More... Asthma [J45.909] Depression with anxiety [F41.8] Asthma exacerbation [J45.901] INVALID FOR* SOB (shortness of breath) [R06.02] INVALID FOR* Fibromyalgia [M79.7] INVALID FOR* Priority: L More... History of section [Z98.891] INVALID FOR* More... Obesity in [O99.210] INVALID FOR*03/07/2018 More... Supervision of normal [Z34.90] INVALID FOR*03/07/2018 Family history of seizure disorder [Z82.0] INVALID FOR* More... Encounter for sterilization [Z30.2] INVALID FOR* More... cardiac anomaly affecting , ante*INVALID FOR*03/07/2018 [Z34.90] INVALID FOR*03/07/2018 COPD exacerbation (HCC) [J44.1] INVALID FOR*03/24/2018 Priority: A More... Obesity, Class III, BMI >= 40 E66.01 [E66.01] INVALID FOR* Healthcare maintenance [Z00.00] INVALID FOR*03/24/2018 Priority: M More... On home O2 [Z99.81] INVALID FOR* Notes for Staff Discussed this visit Other instructions from your clinician: IMPRESSION: 1. Very severe COPD vs asthma, FEV1 30% predicted. 2. Tobacco use disorder, continuous. 3. Morbid obesity. Body Mass Index (BMI) today is 54.82 at current weight of 291 pounds. Normal BMI is 18.5-25, corresponding to a goal weight range of 100-150 pounds in an individual 5'1 tall. The patient is at least 140 pounds overweight. - Weight loss is critical. Consider referral to Weight Management program such as Weight Watchers, or to Bariatric Surgery program. Deferred to Primary Care Physician, Juany Holt MD. RECOMMEND: 1. Complete Pulmonary Function Testing with lung volumes, DLCO, Trevin (to assess for eosinophilic airway inflammation). 2. Measure Alpha-1 antitrypsin in light of very severe obstruction at such a young age. . 3. Measure Total IgE to evaluate for concomitant allergic component. Eosinophil count and percentage recently normal. 4. Continuing twice daily Symbicort, 2 inhalations. 5. Continue Albuterol HFA inhaler, 2 inhalations 10?15 minutes prior to activities associated with shortness of breath, and as needed for rescue relief of shortness of breath or wheezing, up to 4 times daily. 6. Continue oxygen as prescribed. 7. Smoking cessation is critical, though likelihood of success is low if spouse won't quit smoking as well. 8. Follow up after these tests to make definitve treatment recommendations. 9. Continue Annual Influenza vaccination. Agata Gardiner MD, [facility] [address] [place] [address] P: [phone] F: [phone] Visit Notes: >> Mariam Sullivan LPN SatJun 20, 2018 8:19 AM Status: Attested ROS: General: Generally feels fatigued. Appetite good. Eyes, Ears, nose, throat: notes post nasal drip. notes rhinorrhea. denies purulent nasal discharge. denies epistaxis. denies hoarseness. Vision stable. Cardiac: denies angina, denies edema, denies orthopnea. GI: denies heartburn, using Prilosec. denies dysphagia. denies diarrhea. 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 denies hesitancy. denies nocturia. Menses: regular Musculoskeletal: notes joint and foot pain. Neuro: notes headache, denies focal weakness. denies tremor. Skin: denies rash. Otherwise negative. Medications Discontinued During This Encounter ondansetron (ZOFRAN) 4 mg tablet 12 t* 0 03/12/2018 06/20/2018 Class: Print RX Route: ORAL Sig: Take 1 tablet by mouth every 12 hours as needed for Nausea/Vomiting. Disc: Course of therapy completed Follow Up: Discussed this visit Follow-up and Disposition History Recorded Encounter Status:Closed by AGATA GARDINER MD on 06/21/18 PROGRESS Observed: 06/20/2018 Status: COMPLETED Source: [place] 8:12 AM [facility] REPOSITORY HNO ID: [id number] Author: Agata Gardiner Service: (none) Author Type: Physician Type: Progress Notes Filed: 06/21/2018 4:17 PM Note Text: [facility] [place] Consultation Note, 06/20/2018: Introduction: The patient is seen in consultation today for evaluation of COPD, breathing issues. This consultation is requested by Sho Chin APRN, RAN. A copy of this encounter will be made available as a report via [facility] electronic medical record. 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 Pneumonia shortly after . Not released to home until 6 weeks old. Pneumonia again age 7. Hospitalized Freshman year with Double whammy of bronchitis and pneumonia both. Here lately it's been bronchitis. Triggers include hot/humid weather, lower respiratory tract infections. No shortness of breath at rest. ZEPEDA with walking room to room, housework. Alot of daily cough, attributes to sinus drainage/post nasal drip. Variable amounts non-purulent sputum. No hemoptysis. No pleuritic chest pain. Occasional wheezing. Cough occasional wakes from sleep. Claims consistent compliance with Symbicort 160-4.5, 2 inhalations BID with spacer. Uses Albuterol MDI quite alot, with relief. Previous therapies have included Advair, no long acting anti-cholinergic bronchodilator. Last used prednisone for exacerbation of symptoms following 03/2018 ED evaluation and hospitalization for exacerbation of symptoms, on O2 since then; wearing it during sleep. No endotracheal intubation and mechanical ventilation. Claims to sleep variably depending on arthritis activity, frequent interruption due to 2 yo special needs baby. Awakens sluggish. Spouse reports snoring. Sometimes morning headache on waking. No daytime hypersomnolence. Diagnostic Polysomnogram last night. Home [place] [facility] [place], surrounded by [place]. 1 dog in home. No farming, stable work, birding, spelunking. In 1999 [employer] work. 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 Disabled since due to vision and arthritis. No sandblasting, asbestos exposure, work in manufacturing or processing of adhesives, paint, plastics, wood products. No sustained Rx with Amiodarone, Methotrexate, cancer chemotherapy, external beam radiation therapy. 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 - ORAL SURGERY PROCEDURE teeth removed - PAST SURGICAL HISTORY OF TM tubes - REMOVAL OF TONSILS,<12 Y/O Tonsillectomy - TUBAL LIGATION FAMILY HISTORY Problem Relation Age of Onset - Adopted: Yes - Diabetes Father - Hypertension Mother - Cancer Mother liver cancer - osteoarthritis [OTHER] Mother - Heart Maternal Grandmother - Cancer Maternal Grandmother - Diabetes Paternal Grandfather - Prostate Cancer Paternal Grandfather - Stroke Paternal Grandmother - Heart Sister hole in heart - Breast Cancer Sister - Alcohol/Drug Sister - osteochondroma [OTHER] Son - osteochondroma [OTHER] Son Social History Marital status: Spouse name: Years of education: Number of children: Occupational History Occupation Employer Comment unemployed, disabi* Social History Main Topics Smoking status: Current Every Day Smoker Packs/day: 0.50 Years: 15.00 Types: Cigarettes Smokeless tobacco: Never Used Comment: Trying to quit Alcohol use: No Comment: rare wine cooler- not while Drug use: No Sexual activity: Yes Partners with: Male control/protection: None Social History Narrative Mother 2011. Father needs her help. 2 sons. Immunization History Administered Date(s) Administered DTaP + HIB 1982 06/14/1983 09/01/1983 07/17/1984 IPV 1982 1982 06/14/1983 07/17/1984 Influenza Seasonal Inj Age 3+ 11/19/2014 Influenza Seasonal Inj Quadrivalent Age 3+ 11/09/2015 09/03/2016 12/20/2017 Influenza Vaccine, Split-Non Spec 12/11/2013 MMR 09/01/1983 07/10/1995 Pneumovax 12/11/2013 Tdap (Age 7+) 05/23/2016 MEDICATIONS and ALLERGIES: Reviewed, updated and reconciled with the patient today, as noted in the medication and allergy sections of the encounter. ROS: Reviewed with patient, confirmed as documented by Mariam Sullivan LPN. TO PHYSICAL EXAMINATION: BP 122/62 Pulse 81 Resp 20 Ht 5' 1 (1.55m) Wt 290 lb (131.5kg) SpO2 91% BMI 54.82 kg/(m2). Gen: No acute distress. Cooperative with examination. Morbidly obese. ENT: Sclerae clear. Nares clear. Edentulous. Pharynx clear. Resp: No stridor, accessory respiratory muscle use, supra- sternal or intercostal retractions. A-P diameter normal. No crackles, wheezes. CV: Regular rythm. Heart tones normal. Unable to visualize JVP, HJR. No carotid bruit. Radial pulses normal. Abd: Not distended. MSK: No kyphoscoliosis, joint deformities of the extremities. Ext: Warm and well perfused. No clubbing. No cyanosis. No edema. No sclerodactyly. No Raynaud's. Skin: No rash, eczema, urticaria. Lymph: Unable to appreciate adenopathy in neck, supra-clavicular fossae. Endo: Unable to appreciate goiter. No exophthalmos, onycholysis. Neuro: Mental status normal. No tremor. DATA REVIEW: Spirometry, 06/20/2018 ? Yuliya ? % Ref ? ? ? FVC ?Liters ? ? ? 3.38 ?1.86 ?55 FEV1 ? ? ? Liters ? ? ? 2.81 ?0.86 ?30 FEV1/FVC ? % ? 0.83 ? 0.46 INJ95-17% ?L/sec ? ? ?3.10 ?0.34 ?11 PEF ?L/sec ? ? ? 6.56 ?2.47 ?38 CXR 03/21/2018 Comparison: ?Chest x-ray 02/23/2018 RESULTS: Lines, Tubes, and Devices: ?None Lungs and Pleura: ?The lungs are clear. No pleural effusion or pneumothorax. ? Cardiomediastinal silhouette: ?AP technique accentuates the cardiac silhouette. Other: ?The bones of the chest are unremarkable. IMPRESSION: No radiographic evidence of acute cardiopulmonary abnormality. I have personally and independently reviewed these CXR images and note them to be poorly penetrated. The cardio:thoracic ratio is 164:302. TO ? Component Ref Rng AND Units 03/07/2018 03/21/2018 WBC 3.70 - 11.00 k/uL 11.07 (H) 16.38 (H) RBC 3.90 - 5.20 m/uL 4.65 4.93 Hemoglobin 11.5 - 15.5 g/dL 12.5 13.2 Hematocrit 36.0 - 46.0 % 43.5 45.8 Platelet Count 150 - 400 k/uL 247 287 Eosin% % 0.0 Abs Eosin <0.46 k/uL 0.00 Protein, Total 6.3 - 8.0 g/dL 6.9 Albumin 3.9 - 4.9 g/dL 3.4 (L) Calcium 8.5 - 10.2 mg/dL 8.8 8.9 Bilirubin, Total 0.2 - 1.3 mg/dL 0.4 Alkaline Phosphatase 32 - 117 U/L 55 AST 13 - 35 U/L 18 Glucose 74 - 99 mg/dL 77 106 (H) BUN 7 - 21 mg/dL 12 12 Creatinine 0.58 - 0.96 mg/dL 0.60 0.63 Sodium 136 - 144 mmol/L 138 139 Potassium 3.7 - 5.1 mmol/L 4.0 3.8 Chloride 97 - 105 mmol/L 96 (L) 97 CO2 22 - 30 mmol/L 32 (H) 34 (H) Anion Gap 9 - 18 mmol/L 10 8 (L) ALT 7 - 38 U/L 14 eGFR- >60 >60 eGFR-All Other Races . >60 >60 Absolute nRBC <0.01 k/uL <0.01 IMPRESSION: 1. Very severe COPD vs asthma, FEV1 30% predicted. 2. Tobacco use disorder, continuous. 3. Morbid obesity. Body Mass Index (BMI) today is 54.82 at current weight of 291 pounds. Normal BMI is 18.5-25, corresponding to a goal weight range of 100-150 pounds in an individual 5'1 tall. The patient is at least 140 pounds overweight. - Weight loss is critical. Consider referral to Weight Management program such as Weight Watchers, or to Bariatric Surgery program. Deferred to Primary Care Physician, Juany Holt MD. RECOMMEND: 1. Complete Pulmonary Function Testing with lung volumes, DLCO, Trevin (to assess for eosinophilic airway inflammation). 2. Measure Alpha-1 antitrypsin in light of very severe obstruction at such a young age. . 3. Measure Total IgE to evaluate for concomitant allergic component. Eosinophil count and percentage recently normal. 4. Continuing twice daily Symbicort, 2 inhalations. 5. Continue Albuterol HFA inhaler, 2 inhalations 10?15 minutes prior to activities associated with shortness of breath, and as needed for rescue relief of shortness of breath or wheezing, up to 4 times daily. 6. Continue oxygen as prescribed. 7. Smoking cessation is critical, though likelihood of success is low if spouse won't quit smoking as well. 8. Follow up after these tests to make definitve treatment recommendations. 9. Continue Annual Influenza vaccination. I addressed the questions of the patient, and she expressed understanding and acceptance of my answers. Agata Gardiner MD, [facility] [address] [place] [address] P: [phone] F: [phone] [email or web address] PROGRESS Observed: 06/20/2018 Status: COMPLETED Source: [place] 5:16 AM [facility] REPOSITORY HNO ID: [id number] Author: Alix Espino Service: (none) Author Type: (none) Type: Progress Notes Filed: 06/20/2018 5:17 AM Note Text: Sleep Study Check-In Documentation Date: June 20, 2018 Name: Yobany Londono Patient was accompanied by Self. Location: Latex allergy: No Tape allergy: No Current medications were reviewed with the patient:Yes Sleep aid taken by patient for the sleep study: [place] of sleep aid: Not Applicable Procedure was explained to the patient and all questions were answered. PAP treatment discussed and shown to patient: Yes Knowledge Program (KP): KP was not completed in [facility] by patient and accepted Study type: Polysomnogram Adverse Event: No (If yes create a new abstract) SERS Event: No Comments: Patient was advised to follow up with their ordering provider regarding test results Alix Jennings Srinivas URINALYSIS WITH Collected: 04/15/2018 Status: F Source: [facility] 4:50 PM [facility] REPOSITORY TYPE CODE TESTS RESULT OUT OF RANGE REFERENCE UNITS LAB UCOL Yellow Color Abnormal [place] Alert LAB [facility] Clear Clarity Abnormal Cloudy Alert LAB UGLUC Negative mg/dL Glucose, Urine Negative LAB UBIL Negative Bilirubin, Urine Negative LAB UKET Negative Ketones, Urine Negative LAB USPG 1.005-1.030 Specific [place], Ur 1.021 LAB UHGB Negative Hemoglobin/Blood, Negative Ur LAB UPH 4.5-8.0 pH 7.0 LAB UPROT Negative mg/dL Protein, Urine Negative LAB UUROB Normal Abnormal Urobilinogen Elevated Alert LAB UNITR Negative Nitrites Negative LAB ULKEST Negative Leukest Negative LAB UCOM Comments SEE COMMENT Result Comment: N/A LAB UMCOM Urine SEE Deny Comment COMMENT Result Comment: N/A LAB UWBC 0-5 /HPF WBC 0-5 LAB URBC 0-3 /HPF RBC 0-3 LAB UEPI /HPF Epithelial SEE Cells COMMENT Result Comment: Few Squamous Epithelial Cells Performed By: #### UAWMIC #### [facility] [address] [place], [place] [address] Observed: 04/15/2018 Status: F Source: [place] URINE CULTURE 4:50 PM [facility] REPOSITORY Sp. Request/Comment: - Specimen received in preservative Culture Result - <10,000 CFU/ml Normal urogenital justin Performed By: #### URCUL #### [facility] [address] [place], [place] [address] CNOV Observed: 04/15/2018 Status: COMPLETED Source: [place] 3:00 PM [facility] REPOSITORY Office Visit (FAMPWS) YOBANY LONDONO ([id number]) 1980 F [facility] Date Time Provider Department 04/15/18 3:00 PM MICHELLE JOSE (RAN) FAMPWS During your visit today, we recorded the following information about you: Temperature Pulse Respiration Blood pressure 98.2 degrees 96/minute 24/minute 130/70 Weight 133.4 kg Michelle Jose APRN.CNP 04/15/2018 3:44 PM Signed 04/15/2018 Patient presents with: UTI: x 4 days SUBJECTIVE: This is a 37 year old that is here today for Above Complaints. Saturday evening started with urinary odor and burning with urination. Denies fever, chills, abdominal pain, difficulty./ frequency, or urgency with urination, hematuria, and vaginal discharge.Positive for low back pain- although report this is chronic and worse than usual. 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 albuterol (PROVENTIL) 2.5 mg /3 mL (0.083 %) nebulizer solution Use 3 mL via nebulizer every 4 hours as needed for Wheezing/Shortness of Breath. Use over 5-15minutes. COMPOUNDED PRESCRIPTION Home oxygen : 3 Litre per minute with exercise and at hours of sleep via nasal canula with conserving device Associated diagnosis : COPD nicotine (NICODERM CQ) 14 mg/24 hr Apply 1 Patch as directed every 24 hours. meloxicam (MOBIC) 15 mg tablet TAKE ONE TABLET BY MOUTH ONCE DAILY WITH FOOD ondansetron (ZOFRAN) 4 mg tablet Take 1 tablet by mouth every 12 hours as needed for Nausea/Vomiting. B Complex Vitamins capsule TAKE ONE CAPSULE BY MOUTH EVERY DAY budesonide-formoterol (SYMBICORT) 160-4.5 mcg/actuation inhaler Inhale 2 Puffs as instructed twice daily. omeprazole (PRILOSEC) 20 mg capsule Take 1 capsule by mouth daily before breakfast. 1/2 hr before meal. albuterol HFA (VENTOLIN HFA) 90 mcg/actuation inhaler Inhale 2 Puffs as instructed every 6 hours as needed for Wheezing/Shortness of Breath. acetaminophen (TYLENOL) 500 mg tablet EVERY 6 HOURS NEEDED citalopram (CELEXA) 40 mg tablet Take 1 tablet by mouth once daily. fluticasone (FLONASE) 50 mcg/actuation nasal spray Use 2 Sprays in each nostril once daily. Rinse mouth after use. vitamin b complex (B COMPLETE) tab Take 1 tablet by mouth once daily. loratadine (CLARITIN) 10 mg tablet Take 1 tablet by mouth once daily as needed. FOR ALLERGY SYMPTOMS multivitamin tablet Take 1 tablet by mouth once daily. nicotine (NICODERM CQ) 7 mg/24 hr Apply 1 Patch as directed every 24 hours. (Patient not taking: Reported on 04/15/2018 ) nicotine (NICODERM) 21 mg/24 hr Apply 1 Patch as directed once daily. Use the 21 mg /24 hour strength patches for 10 days, then reduce to 14 mg/24 hour patches for 10 days then the lowest strength 7 mg/24 hour patch for 10 days and then stop completely. Please do not smoke while you are using the patches. guaiFENesin-dextromethorphan (ROBITUSSIN DM) 100-10 mg/5 mL syrup Take 10 mL by mouth every 6 hours as needed for Cough. (Patient not taking: Reported on 04/15/2018 ) cyclobenzaprine (FLEXERIL) 10 mg tablet Take 1 tablet by mouth every 8 hours as needed. (Patient not taking: Reported on 04/15/2018 ) lidocaine (LIDODERM) 5 % Apply 1 Patch as directed every 24 hours. (Patient not taking: Reported on 04/15/2018 ) No current facility-administered medications for this visit. Medications and allergies reviewed by this provider. SOCIAL HISTORY Social History Marital status: Spouse name: Years of education: Number of children: Occupational History Occupation Employer Comment unemployed, disabi* Social History Main Topics Smoking status: Current Every Day Smoker Packs/day: 0.50 Years: 15.00 Types: Cigarettes Smokeless tobacco: Never Used Comment: Trying to quit Alcohol use: No Comment: rare wine cooler- not while Drug use: No Sexual activity: Yes Partners with: Male control/protection: None Social History Narrative Mother 2011. Father needs her help. 2 sons. REVIEW OF SYSTEMS All other reviewed and negative other than HPI. OBJECTIVE: There were no vitals taken for this visit.. Vital signs reviewed by this provider. APPEARANCE Well appearing, alert, in no acute distress, well- hydrated, well nourished., Morbidly obese HEART RRR with normal S1 and S2, no murmurs, no gallops, no JVD appreciated LUNG clear to auscultation ABDOMEN bowel sounds normoactive, no bruits, soft, non-tender, non-distended, no tenderness to palpation ASSESSMENT/PLAN: 1. Burning with urination - ICD9: 788.1, ICD10: R30.0 -acute - Send urine for culture - Begin treatment with Macrobid 100 mg BID for 7 days - Patient education for prevention given - UA DIP B/O - URINALYSIS WITH MICROSCOPIC - URINE CULTURE - follow-up in 3-5 days if symptoms persisting or worseing 2. Urine malodor - ICD9: 791.9, ICD10: R82.90 (primary diagnosis) - plan as a bev - UA DIP B/O - URINALYSIS WITH MICROSCOPIC - URINE CULTURE Michelle Jose APRN.BUFFER CHROME Prescription instructions reviewed with patient as applicable. Patient advised if symptoms do not improve or if symptoms worsen sooner, to contact their primary care physician. Potential red flag symptoms discussed with the patient. Reviewed appropriate action plan to take if red flag symptoms occur. Patient agreeable to treatment plan. Allergies As of Date: 04/15/2018 Noted Allergy Reaction SEASONAL ALLERGIES 05/04/2013 5 - Intolerance PENICILLINS 02/11/2007 2 - Rash 11 - Vomiting Comments: JUST SENSITIVITY TO PCN PER DR FAJARDO Date Reviewed: 04/15/2018 Reviewed by: Gloria Flores LPN - Fully Assessed Reason for Visit: UTI [116] Cmt: x 4 days Primary Visit Diagnosis:Burning with urination [R30.0] Other Visit Diagnosis:Urine malodor [R82.90] Order(s):UA DIP B/O [9443902] Order #: [id number] URINALYSIS WITH MICROSCOPIC [SQUAWMIC] Order #: [id number] URINE CULTURE [SQURCUL] Order #: [id number] nitrofurantoin monohydrate and macrocrystal (MACROBID) 100 mg capsuleTake 1 capsule by mouth twice daily with meals for 7 days.Disp: 14 capsuleRfl: 0 Prescriptions as of 04/15/2018 Sig: CHOLECALCIFEROL (VITAMIN D3) * Take 1,000 Units by mouth onc* ALBUTEROL SULFATE 2.5 MG/3 ML* Use 3 mL via nebulizer every * COMPOUNDED PRESCRIPTION Home oxygen : 3 Litre per min* NICOTINE 14 MG/24 HR DAILY TR* Apply 1 Patch as directed yoly* MELOXICAM 15 MG TABLET TAKE ONE TABLET BY MOUTH ONCE* ONDANSETRON HCL 4 MG TABLET Take 1 tablet by mouth every * VITAMIN B COMPLEX CAPSULE TAKE ONE CAPSULE BY MOUTH YOLY* BUDESONIDE-FORMOTEROL HFA 160* Inhale 2 Puffs as instructed * OMEPRAZOLE 20 MG CAPSULE,GHASSAN* Take 1 capsule by mouth daily* ALBUTEROL SULFATE HFA 90 MCG/* Inhale 2 Puffs as instructed * ACETAMINOPHEN 500 MG TABLET EVERY 6 HOURS NEEDED CITALOPRAM 40 MG TABLET Take 1 tablet by mouth once d* FLUTICASONE 50 MCG/ACTUATION * Use 2 Sprays in each nostril * VITAMIN B COMPLEX TABLET Take 1 tablet by mouth once d* LORATADINE 10 MG TABLET Take 1 tablet by mouth once d* MULTIVITAMIN TABLET Take 1 tablet by mouth once d* NITROFURANTOIN MONOHYDRATE AND * Take 1 capsule by mouth twice* NICOTINE 7 MG/24 HR DAILY TRA* Apply 1 Patch as directed yoly* Patient not taking: Reported on 04/15/2018 NICOTINE 21 MG/24 HR DAILY TR* Apply 1 Patch as directed onc* DEXTROMETHORPHAN-GUAIFENESIN * Take 10 mL by mouth every 6 h* Patient not taking: Reported on 04/15/2018 CYCLOBENZAPRINE 10 MG TABLET Take 1 tablet by mouth every * Patient not taking: Reported on 04/15/2018 LIDOCAINE 5 % TOPICAL PATCH Apply 1 Patch as directed yoly* Patient not taking: Reported on 04/15/2018 Problem List As Of Date 04/15/2018 Noted Resolved Pulpitis [K04.01] INVALID FOR* OTHER LUNG DISEASE NEC [J98.4] INVALID FOR*03/09/2008 Tobacco use disorder [F17.200] INVALID FOR* Priority: L More... Acute Bronchitis [J20.9] INVALID FOR* Chronic Airway Obstruction, not Elsewhere Class*INVALID FOR* Morbid obesity [E66.01] Priority: L More... Back pain [M54.9] More... Osteochondroma, multiple [Q78.6] More... Asthma [J45.909] Depression with anxiety [F41.8] Asthma exacerbation [J45.901] INVALID FOR* SOB (shortness of breath) [R06.02] INVALID FOR* Fibromyalgia [M79.7] INVALID FOR* Priority: L More... History of section [Z98.891] INVALID FOR* More... Obesity in [O99.210] INVALID FOR*03/07/2018 More... Supervision of normal [Z34.90] INVALID FOR*03/07/2018 Family history of seizure disorder [Z82.0] INVALID FOR* More... Encounter for sterilization [Z30.2] INVALID FOR* More... cardiac anomaly affecting , ante*INVALID FOR*03/07/2018 [Z34.90] INVALID FOR*03/07/2018 COPD exacerbation (HCC) [J44.1] INVALID FOR*03/24/2018 Priority: A More... Obesity, Class III, BMI >= 40 E66.01 [E66.01] INVALID FOR* Healthcare maintenance [Z00.00] INVALID FOR*03/24/2018 Priority: M More... On home O2 [Z99.81] INVALID FOR* Prescriptions ordered this encounter Disp Refills Start End NITROFURANTOIN MONOHYDRATE AND MACROCR* 14 c* 0 04/15/2018 04/22/2018 Route: ORAL Sig: Take 1 capsule by mouth twice daily with meals for 7 days. Follow-up and Disposition History Recorded Encounter Status:Closed by PODLOGARMICHELLE CNP on 04/15/18 PROGRESS Observed: 04/15/2018 Status: COMPLETED Source: [place] 2:57 PM [facility] RE[facility] HNO ID: [id number] Author: Michelle Mccoy) Podlogar Service: (none) Author Type: Nurse Practitioner Type: Progress Notes Filed: 04/15/2018 3:44 PM Note Text: 04/15/2018 Patient presents with: UTI: x 4 days SUBJECTIVE: This is a 37 year old that is here today for Above Complaints. Saturday evening started with urinary odor and burning with urination. Denies fever, chills, abdominal pain, difficulty./ frequency, or urgency with urination, hematuria, and vaginal discharge.Positive for low back pain- although report this is chronic and worse than usual. 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 albuterol (PROVENTIL) 2.5 mg /3 mL (0.083 %) nebulizer solution Use 3 mL via nebulizer every 4 hours as needed for Wheezing/Shortness of Breath. Use over 5-15minutes. COMPOUNDED PRESCRIPTION Home oxygen : 3 Litre per minute with exercise and at hours of sleep via nasal canula with conserving device Associated diagnosis : COPD nicotine (NICODERM CQ) 14 mg/24 hr Apply 1 Patch as directed every 24 hours. meloxicam (MOBIC) 15 mg tablet TAKE ONE TABLET BY MOUTH ONCE DAILY WITH FOOD ondansetron (ZOFRAN) 4 mg tablet Take 1 tablet by mouth every 12 hours as needed for Nausea/Vomiting. B Complex Vitamins capsule TAKE ONE CAPSULE BY MOUTH EVERY DAY budesonide-formoterol (SYMBICORT) 160-4.5 mcg/actuation inhaler Inhale 2 Puffs as instructed twice daily. omeprazole (PRILOSEC) 20 mg capsule Take 1 capsule by mouth daily before breakfast. 1/2 hr before meal. albuterol HFA (VENTOLIN HFA) 90 mcg/actuation inhaler Inhale 2 Puffs as instructed every 6 hours as needed for Wheezing/Shortness of Breath. acetaminophen (TYLENOL) 500 mg tablet EVERY 6 HOURS NEEDED citalopram (CELEXA) 40 mg tablet Take 1 tablet by mouth once daily. fluticasone (FLONASE) 50 mcg/actuation nasal spray Use 2 Sprays in each nostril once daily. Rinse mouth after use. vitamin b complex (B COMPLETE) tab Take 1 tablet by mouth once daily. loratadine (CLARITIN) 10 mg tablet Take 1 tablet by mouth once daily as needed. FOR ALLERGY SYMPTOMS multivitamin tablet Take 1 tablet by mouth once daily. nicotine (NICODERM CQ) 7 mg/24 hr Apply 1 Patch as directed every 24 hours. (Patient not taking: Reported on 04/15/2018 ) nicotine (NICODERM) 21 mg/24 hr Apply 1 Patch as directed once daily. Use the 21 mg /24 hour strength patches for 10 days, then reduce to 14 mg/24 hour patches for 10 days then the lowest strength 7 mg/24 hour patch for 10 days and then stop completely. Please do not smoke while you are using the patches. guaiFENesin-dextromethorphan (ROBITUSSIN DM) 100-10 mg/5 mL syrup Take 10 mL by mouth every 6 hours as needed for Cough. (Patient not taking: Reported on 04/15/2018 ) cyclobenzaprine (FLEXERIL) 10 mg tablet Take 1 tablet by mouth every 8 hours as needed. (Patient not taking: Reported on 04/15/2018 ) lidocaine (LIDODERM) 5 % Apply 1 Patch as directed every 24 hours. (Patient not taking: Reported on 04/15/2018 ) No current facility-administered medications for this visit. Medications and allergies reviewed by this provider. SOCIAL HISTORY Social History Marital status: Spouse name: Years of education: Number of children: Occupational History Occupation Employer Comment unemployed, disabi* Social History Main Topics Smoking status: Current Every Day Smoker Packs/day: 0.50 Years: 15.00 Types: Cigarettes Smokeless tobacco: Never Used Comment: Trying to quit Alcohol use: No Comment: rare wine cooler- not while Drug use: No Sexual activity: Yes Partners with: Male control/protection: None Social History Narrative Mother 2011. Father needs her help. 2 sons. REVIEW OF SYSTEMS All other reviewed and negative other than HPI. OBJECTIVE: There were no vitals taken for this visit.. Vital signs reviewed by this provider. APPEARANCE Well appearing, alert, in no acute distress, well-hydrated, well nourished., Morbidly obese HEART RRR with normal S1 and S2, no murmurs, no gallops, no JVD appreciated LUNG clear to auscultation ABDOMEN bowel sounds normoactive, no bruits, soft, non-tender, non-distended, no tenderness to palpation ASSESSMENT/PLAN: 1. Burning with urination - ICD9: 788.1, ICD10: R30.0 -acute - Send urine for culture - Begin treatment with Macrobid 100 mg BID for 7 days - Patient education for prevention given - UA DIP B/O - URINALYSIS WITH MICROSCOPIC - URINE CULTURE - follow-up in 3-5 days if symptoms persisting or worseing 2. Urine malodor - ICD9: 791.9, ICD10: R82.90 (primary diagnosis) - plan as a bev - UA DIP B/O - URINALYSIS WITH MICROSCOPIC - URINE CULTURE Michelle Jose, TEA.BUFFER CHROME Prescription instructions reviewed with patient as applicable. Patient advised if symptoms do not improve or if symptoms worsen sooner, to contact their primary care physician. Potential red flag symptoms discussed with the patient. Reviewed appropriate action plan to take if red flag symptoms occur. Patient agreeable to treatment plan. EMERGENCY DEPARTMENT Observed: 04/12/2018 Status: F Source: [place] SUMMARY 3:59 AM [facility] [place] [facility] Medical Records Department [address] [place] [address] Emergency Department Summary 04/12/18 0352 MR#: [id number] Acct: [id number] Name: YOBANY LONDONO Rep #: [id number] : 1980 37 From: Burt Park MD PCP: Jonathon MOSES,Juany Status: REG ER - ER Visit Summary Date of Service: 04/12/18 Chief Complaint: Dizziness, shortness of breath and abdominal pain with nausea, vomiting diarrhea. History of Present Illness: The patient is a 37 F who called squad for transport to the emergency room because of lightheadedness and shortness of breath. The dizziness started a couple of hours prior to presentation. Her meaning of dizziness is lightheadedness when she stands. There is no vertiginous symptoms. There is no nausea vomiting. There is no change in vision and specifically no blurred or double vision. She denies headache. Denies neck pain. She denies paresthesia, anesthesia motor weakness. She does complain of a nonproductive cough as well as shortness of breath and dyspnea on exertion. She does report mild nasal congestion. She denies hematemesis, melena hematochezia. Nausea vomiting has been present for 2-3 days. She denies dysuria, frequency, urgency or hematuria. She does complain of generalized weakness. Physical Examination: Blood work is unremarkable. She is not hypoxic on oxygen by nasal cannula. She is chronically on 2 L. BMI is 55.2. Head is atraumatic normocephalic. Pupils are equal round reactive. Extraocular muscles are intact. TMs are pearly white with landmarks noted. Nares patent with no drainage. Posterior pharynx without erythema or exudate. Uvula is midline. There is no dysphonia or dysphasia. Trachea is midline. There is no stridor with auscultation of the neck. She does have cushingoid facial appearance with buffalo hump. Lungs reveal increased x-ray phase with diminished breath sounds and wheezing heard bilaterally. Heart is regular without murmur, gallop or rub. Abdomen soft nontender. Lower extremity exam reveals non-pitting edema with varicosities. There is no tenderness, pain along the distribution of deep venous system, leg vein distention, discoloration, asymmetry or palpable cords. She is alert oriented 3. Gait was not observed or tested. Motor and sensory are intact. Test Results: Chest x-ray reveals chronic changes with a difference in the penetration. Today's film is underpenetrated compared to prior. White count is normal. BMP is remarkable for an elevated CO2, which is a new finding. Blood gas was obtained and reveals chronic CO2 retention with a pH 7.45, CO2 of 55, PaO2 of 102 with a bicarb of 38.4 and saturation 98% which correlates with pulse ox. Emergency Department Course and Treatment: To evaluate patient's symptoms CBC was obtained to evaluate for anemia, BMP to assess elevated BUN to creatinine ratio and chest x-ray because of the cough and wheezing with history of COPD. She was treated with DuoNeb and albuterol. She also received 60 mg of prednisone. She has had no vomiting or diarrhea during her ER course. Treatment Plan: Prescription for 40 mg of prednisone 5 days. Follow-up with in 3-5 days. Disposition: Discharged home in stable improved condition. She was reassessed at 0350 and is now wheeze free. Impression: 1. Acute exacerbation of COPD with bronchospasm 2. Respiratory failure with chronic hypercapnia and hypoxia 3. Abdominal pain with reported vomiting diarrhea 4. History of GERD 5. History of IBS This note was generated with [employer] dictation software. It may contain incorrect words, spelling, and punctuation that were not noted in review of the chart prior to signing ED Disposition - Plan for ED Patient: Disposition: Home or Assisted Living Chief Complaint: Dizziness Instructions: ED COPD Flare Prescriptions: Prednisone [Deltasone] 40 mg PO DAILY #10 tab Referrals: Juany Holt MD [Primary Care Provider] - 3-5 Days What to do if you have Problems For any increased pain, shortness of breath, bleeding, nausea or vomiting, chest pain, or any unexpected problems, contact your Primary Care Provider. Call [facility] ([phone]) or report to the closest Emergency Room. Call 911 if necessary. 04/12/18 0356 <Electronically signed by Burt Park MD> Date Burt Park MD Cosigner Signature (If Indicated): Date CC: Juany Holt MD BLOOD GASES BY CPS Collected: 04/12/2018 Status: F Source: [place] 3:37 AM [facility] [place] TYPE CODE TESTS RESULT OUT OF RANGE REFERENCE UNITS LAB L9000.9990 Normal BLD GAS TYPE ART LAB L9001.1000 Normal SITE L Radial LAB L9001.1010 Normal NIRAV TEST POS LAB L9001.1050 O2 Normal Delivery Dev Nasal Can LAB L9001.1055 /min Normal LPM 2.0 LAB L9001.1104 Normal Results To ED LAB L9001.1105 Normal Time Given 330 LAB L9001.1110 7.35-7.45 pH Normal - I-STAT 7.45 LAB L9001.1210 35-45 mmHg High pCO2 - ISTAT 55.1 LAB L9001.1310 75-100 mmHG High PO2 I-STAT 102 LAB L9001.2300 22-26 mmol/L High HCO3 ISTAT 38.4 LAB L9001.2400 -2 to +2 mmol/L High BE ISTAT 14 LAB L9001.2415 mmol/L Normal TOTAL CO2 40 ISTAT LAB L9001.2425 95-99 % Normal SO2 ISTAT 98 Performed By: #### L9000.0800 #### [facility] Point of Care [facility] [place] [address] CBC W/DIFF, AUTOMATED Collected: 04/12/2018 Status: F Source: [place] 2:15 AM [facility] [place] TYPE CODE TESTS RESULT OUT OF RANGE REFERENCE UNITS LAB L100.1000 4.4-11.0 K/mm3 Normal WBC 8.7 LAB L100.1200 4.2-5.4 M/mm3 Normal RBC 4.29 LAB L100.1300 12.0-15.0 g/dl Normal HGB 12.1 LAB L100.1400 37-47 % Normal HCT 40.3 LAB L100.1500 81-99 fL Normal MCV 93.9 LAB L100.1600 27.0-32.0 pg Normal MCH 28.2 LAB L100.1700 32-36 g/gl Low MCHC 30.0 LAB L100.1810 11.6-14.6 % High RDW CV 15.0 LAB L100.1820 35.1-43.9 fl High RDW SD 50.2 LAB L100.1900 150-450 K/mm3 Normal PLT 189 LAB L100.2000 6.2-12.0 fl Normal MPV 10.6 LAB L100.2100 47-70 % Normal NEUT% 70.0 LAB L100.2200 19-41 % Normal LY% 20.7 LAB L100.2300 0-10 % Normal MONO% 6.2 LAB L100.2400 0-5 % Normal EO% 2.4 LAB L100.2500 0-1 % Normal BASO% 0.6 LAB L100.2550 0.0-0.9 % Normal IM GRAN % 0.100 Result Comment: IG% - Immature Granulocytes (promyelocytes, myelocytes and metamyelocytes) > 1% indicates that a LEFT SHIFT is Present. LAB L100.2620 2.0-7.7 X10 3/uL Normal Absolute Neut 6.1 LAB L100.2720 0.83-4.51 X10 3/ul Normal Absolute Lymph 1.80 Performed By: #### L100.0100 #### [facility] [address] [place], [place], [address] BASIC METABOLIC Collected: 04/12/2018 Status: F Source: [place] PROFILE (BMP) 2:15 AM [facility] [place] TYPE CODE TESTS RESULT OUT OF RANGE REFERENCE UNITS LAB L501.0100 74-106 mg/dL Normal GLU 83 Result Comment: Please note revised GLUCOSE reference range effective 2017. LAB L501.1000 7-18 mg/dL Normal BUN 8 LAB L501.1100 0.55-1.02 mg/dL Low CREAT,SERUM 0.52 Result Comment: The validity of the calculated GFR AND GFRAA in patients over 70 years has not been determined. Clinical correlation is essential. LAB L501.1110 >60 mL/min Normal EST GFR 140 Result Comment: Non- GFR Calc LAB L501.1115 >60 mL/min Normal EST GFR - AA 170 Result Comment: GFR Calc LAB L501.1255 ml/min Normal Estimated CRCL 113.95 LAB L501.1300 10-20 RATIO BUN/CRE Normal 15.2 LAB L501.2200 8.5-10 mg/dL .1 CA Normal 8.5 LAB L501.5300 136-14 mmol/L 5 NA Normal 139 LAB L501.5600 3.5-5. mmol/L 1 K Normal 4.0 LAB L501.5900 98-107 mmol/L CL Normal 99 LAB L501.6100 21.0-3 mmol/L High 2.0 CO2 38.0 LAB L501.6200 5-15 Low GAP 2 Performed By: #### L500.2500 #### [facility] [address] [place], [address] CHEST PA AND LATERAL Observed: 04/12/2018 Status: F Source: [place] 2:08 AM [facility] [place] [facility] Imaging Services [address] [place] [address] Chest PA and Lateral MR#: [id number] Acct: [id number] Name: YOBANY LONDONO Rep #: [id number] : 1980 F 37 From: Mickey Benjamin MD PCP: Jonathon MOSES,Juany Status: REG ER Study: Chest PA and Lateral Date of Exam: 04/12/18 Exam# [id number] Ordering Dr: Burt Park MD STUDY: X-RAY CHEST REASON FOR EXAM: Female, 37 years old. wheezing, cough, dizzy, h/o COPD TECHNIQUE: Frontal and lateral views of the chest. COMPARISON: None. FINDINGS: There is an ill-defined opacity in the right and left lung adjacent to the anterior aspect of the left fifth rib may represent a bone lesion or a lung mass. Further evaluation by CT scan can be helpful. There is no demonstrated pleural abnormality. Normal size heart. Normal mediastinum and fatoumata. Normal visualized pulmonary arteries. Normal visualized aortic arch and descending thoracic aorta. Normal visualized thoracic spine. Normal visualized ribs, clavicles, and shoulders. There is no demonstrated abnormality of the visualized soft tissue structures of the upper abdomen. RAD/Chest PA and Lateral IMPRESSION: There is an ill-defined opacity in the right and left lung adjacent to the anterior aspect of the left fifth rib may represent a bone lesion or a lung mass. Further evaluation by CT scan can be helpful. Electronically Signed: Mickey Benjamin MD at 3:55 EDT Tel , Service support , CC: Juany Holt MD; Burt Park MD Conference Planner: Signed PROGRESS Observed: 04/04/2018 Status: COMPLETED Source: [place] 4:08 AM [facility] REPOSITORY HNO ID: [id number] Author: Kiki Rowley Service: (none) Author Type: (none) Type: Progress Notes Filed: 06/20/2018 5:17 AM Note Text: April 04, 2018 The electronic medical record was reviewed to determine if the proposed sleep study conforms to the AASM Practice Parameters for the Indications for Polysomnography and Related Procedures, or if the sleep study is indicated for other reasons. Indications for study: IVA suspected with comorbid medical or sleep disorders: Zbvvvevx-wm-rxjkde pulmonary disease Morbid obesity (BMI>40 kg/m2) Sleep study to be performed: Split Study-Polysomnogram with PAP titration Special instructions: Split night study if AHI > 15. Start with 5 cmH2O then titrate per protocol (1hour baseline) Uses supplemental oxygen at 3 LPM at home Add ETCO2 AND Transcutaneous CO2 Monitoring (BMI>50) Please encourage supine sleep and record sleep in patient's habitual sleep position. Kiki Rowley I have read the above protocol, edited as needed, and agree to the plan Trudi Felix III, PhD, [facility] PROGRESS Observed: 04/01/2018 Status: COMPLETED Source: [place] 7:52 AM [facility] REPOSITORY HNO ID: [id number] Author: Gabby Chambers Psr Service: (none) Author Type: (none) Type: Progress Notes Filed: 06/20/2018 5:17 AM Note Text: April 01, 2018 An order has been received for Polysomnogram (PSG) from Dr. Sho Chin APRN.RAN [place]. [facility] Staff. Visit prep complete. Comments :No The sleep study is scheduled for 04/10. Insurance: Payor: [facility] MEDICA[facility] / Plan: [facility] MEDICAID / Product Type: Medicaid / Gabby Chambers Psr PROGRESS Observed: 03/28/2018 Status: COMPLETED Source: [place] 10:35 AM [facility] REPOSITORY HNO ID: [id number] Author: Sho Chin (Rn Research) Service: (none) Author Type: Nurse Practitioner Type: Progress Notes Filed: 03/28/2018 12:56 PM Note Text: This is a 37 year old female who presents today with: Patient presents with: Hospital Follow Up: COPD INITIAL CONTACT Provider Action/FYI: ? Medication History Not Completed Patient unable to be reached after two or more unsuccessful outreach attempts. No further attempts to contact patient will be made. SUMMARY: -Pt discharged from [facility] on 03/24/18. -Follow up appointment on 03/28/18 with another provider in PCP office; 04/01/18 with PCP; 04/17/18 with Sleep Disorder center. -Medication review not done. -Admitted for SOB/ Wheezing MyChart message left for patient asking which appointment she would like to keep for post hospital discharge visit. As of this note, the message has not been read by the patient. Patient has [facility] Pharmacy Outreach number if she would like to call back. Africa Moore (Food Production Manager) March 26, 2018 9:06 AM HISTORY OF PRESENT ILLNESS: Yobany Londono is a 37 year old female. Patient presents with: Hospital Follow Up: COPD Last Saturday, was taking son to hospital at [facility] for his health problems. Refers that she collapsed at the door. They took her to ER and found to have O2 sat in the 70's. Admitted on 03/21/18 Discharged on 03/24/18. Hospital Course: Ms. Yobany Londono is a 37 ?F with morbid obesity, PMH of COPD/asthma, depression, arthritis, HTN, active smoker, fibromyalgia who presents with shortness of breath with wheezing?x 2 days. Also complaints of cough with greenish expectoration, pleuritic chest pain, fever and chills. ?She has been using her inhaler approx 1/hour and she has increased her Symbicort usage from twice to three times daily. She had 3 ED visit in the last couple of months for similar symptoms. She was treated for COPD exacerbation Assessment AND Plan ? ? Assessment: ? Acute on chronic hypoxemic respiratory failure due to COPD exacerbation Patient was treated with bronchodilators, Prednisone and short course of Azithromycin with significant improvement. Patient to finish brief course of prednisone and Azithromycin on discharge. ? She was assessed for home oxygen and prescribed 3 L/min nasal oxygen with ambulation and at night time for discharge . ? Needs Outpatient Pulmonary follow up and spirometry pre and post bronchodilator May also need sleep study for IVA/OHS and need for CPAP - appointment requested. Counseled about smoking cessation. Patient receptive but has tried multiple times in the past but failed. Lot of stressors at home ? ? Refers now, she is on O2 all of the time. She needs a form filled out for an order for portable oxygen. Currently with e tank and has trouble moving it in and out of the vehicle. Only takes off for limited times. Refers that she did stop smoking last Saturday. She has finished prednisone and antibiotics. Breathing hasn't been too bad. Using symbicort twice daily. Almost out of nebulizers -- needs refills. REVIEW OF SYSTEMS GENERAL: No unintentional weight loss (she is happy as she lost 2 pounds), malaise or fevers/chills HEENT: Negative for frequent or significant headaches, No changes in hearing or vision. NECK: Negative for lumps, goiter, pain and significant neck swelling RESPIRATORY: + cough. + wheeze. + SOB with exertion. + continuous O2. CARDIOVASCULAR: Negative for chest pain, leg swelling, orthopnea, or palpitations GI: No nausea, vomiting, or diarrhea/constipation. No hematochezia/melena. No heartburn or reflux symptoms. : No history of dysuria, frequency or incontinence SKIN: Negative for lesions, rash, and itching NEURO: No history of headaches, syncope, paralysis, seizures or tremors PAST MEDICAL HISTORY: PAST MEDICAL HISTORY Diagnosis Date - Arthritis - Back pain since epidural 2001 - Chronic obstructive pulmonary disease (COPD) ([facility]) - Depression with anxiety - Fibromyalgia shoulders - Hypertension diet controlled - Morbid obesity (HCC) - Osteochondroma, multiple 2002 left 5th rib, humerus, tib, fib - Tobacco use disorder - Unspecified asthma(493.90) PAST SURGICAL HISTORY Procedure Laterality Date - ANESTH, SECTION - DELIVERY ONLY , low cervical x 3. - ORAL SURGERY PROCEDURE teeth removed - PAST SURGICAL HISTORY OF TM tubes - REMOVAL OF TONSILS,<12 Y/O Tonsillectomy - TUBAL LIGATION ALLERGIES Seasonal Allergies; Penicillins MEDICATIONS Current Outpatient Prescriptions: COMPOUNDED PRESCRIPTION Home oxygen : 3 Litre per minute with exercise and at hours of sleep via nasal canula with conserving device Associated diagnosis : COPD nicotine (NICODERM CQ) 14 mg/24 hr Apply 1 Patch as directed every 24 hours. nicotine (NICODERM CQ) 7 mg/24 hr Apply 1 Patch as directed every 24 hours. nicotine (NICODERM) 21 mg/24 hr Apply 1 Patch as directed once daily. Use the 21 mg /24 hour strength patches for 10 days, then reduce to 14 mg/24 hour patches for 10 days then the lowest strength 7 mg/24 hour patch for 10 days and then stop completely. Please do not smoke while you are using the patches. guaiFENesin-dextromethorphan (ROBITUSSIN DM) 100-10 mg/5 mL syrup Take 10 mL by mouth every 6 hours as needed for Cough. meloxicam (MOBIC) 15 mg tablet TAKE ONE TABLET BY MOUTH ONCE DAILY WITH FOOD ondansetron (ZOFRAN) 4 mg tablet Take 1 tablet by mouth every 12 hours as needed for Nausea/Vomiting. B Complex Vitamins capsule TAKE ONE CAPSULE BY MOUTH EVERY DAY cyclobenzaprine (FLEXERIL) 10 mg tablet Take 1 tablet by mouth every 8 hours as needed. lidocaine (LIDODERM) 5 % Apply 1 Patch as directed every 24 hours. albuterol (PROVENTIL) 2.5 mg /3 mL (0.083 %) nebulizer solution Use 3 mL via nebulizer one time only for 1 dose. Use over 5-15minutes. budesonide-formoterol (SYMBICORT) 160-4.5 mcg/actuation inhaler Inhale 2 Puffs as instructed twice daily. albuterol (PROVENTIL) 2.5 mg /3 mL (0.083 %) nebulizer solution inhale the contents of 1 vial via nebulizer four times daily over 5-15 minutes omeprazole (PRILOSEC) 20 mg capsule Take 1 capsule by mouth daily before breakfast. 1/2 hr before meal. albuterol HFA (VENTOLIN HFA) 90 mcg/actuation inhaler Inhale 2 Puffs as instructed every 6 hours as needed for Wheezing/Shortness of Breath. acetaminophen (TYLENOL) 500 mg tablet EVERY 6 HOURS NEEDED citalopram (CELEXA) 40 mg tablet Take 1 tablet by mouth once daily. fluticasone (FLONASE) 50 mcg/actuation nasal spray Use 2 Sprays in each nostril once daily. Rinse mouth after use. vitamin b complex (B COMPLETE) tab Take 1 tablet by mouth once daily. loratadine (CLARITIN) 10 mg tablet Take 1 tablet by mouth once daily as needed. FOR ALLERGY SYMPTOMS multivitamin tablet Take 1 tablet by mouth once daily. No current facility-administered medications for this visit. FAMILY HISTORY Problem Relation Age of Onset - Adopted: Yes - Diabetes Father - Hypertension Mother - Cancer Mother liver cancer - osteoarthritis [OTHER] Mother - Heart Maternal Grandmother - Cancer Maternal Grandmother - Diabetes Paternal Grandfather - Prostate Cancer Paternal Grandfather - Stroke Paternal Grandmother - Heart Sister hole in heart - Breast Cancer Sister - Alcohol/Drug Sister - osteochondroma [OTHER] Son - osteochondroma [OTHER] Son Social History Marital status: Spouse name: Years of education: Number of children: Occupational History Occupation Employer Comment unemployed, disabi* Social History Main Topics Smoking status: Current Every Day Smoker Packs/day: 0.50 Years: 15.00 Types: Cigarettes Smokeless tobacco: Never Used Comment: Trying to quit Alcohol use: No Comment: rare wine cooler- not while Drug use: No Sexual activity: Yes Partners with: Male control/protection: None Social History Narrative Mother 2011. Father needs her help. 2 sons. EXAM: BP 128/70 (BP Site: Left Arm, BP Position: Sitting, BP Cuff Size: Large Adult) Pulse 70 Resp 12 Wt 132.5 kg (292 lb) BMI 55.17 kg/m? T36.4. PHYSICAL EXAM: General Appearance: Well appearing, alert, in no acute distress, well-hydrated, well nourished.. Skin: Skin color, texture, turgor normal, no suspicious rashes or lesions. Head: Normocephalic, no masses, lesions, tenderness or abnormalities. Eyes: Anicteric sclera. Extraocular movements are intact. . Oropharynx: Lips, mucosa, and tongue normal, teeth and gums normal, oropharynx normal. Neck: Supple, no adenopathy Lungs: L/S course with scattered exp wheezes throughout. Heart: RRR without murmur, gallop, or rubs. No ectopy. Abdomen: Abdomen soft, non-tender. Extremities: No deformities, edema, skin discoloration, clubbing or cyanosis. Neurologic: Gait normal. ASSESSMENT/PLAN: 1. Chronic obstructive pulmonary disease with acute exacerbation (HCC) - ICD9: 491.21, ICD10: J44.1 (primary diagnosis) - CONSULT TO PULM/CRITICAL CARE - ALBUTEROL SULFATE 2.5 MG/3 ML (0.083 %) SOLUTION FOR NEBULIZATION - CONSULT TO SLEEP MEDICINE - ADULT - POLYSOMNOGRAM (PSG)/HOME SLEEP APNEA TESTING (HSAT) 2. Low oxygen saturation - ICD9: 790.91, ICD10: R79.81 - CONSULT TO SLEEP MEDICINE - ADULT - POLYSOMNOGRAM (PSG)/HOME SLEEP APNEA TESTING (HSAT) - nebulizers refilled. 3. On home O2 - ICD9: V46.2, ICD10: Z99.81 Form completed for portable O2. 4. Tobacco use disorder - ICD9: 305.1, ICD10: F17.200 - Continue nicotine patches. - Aware that she cannot smoke with patches on and cannot smoke near O2! - Keep up the good work with cessation. 5. Morbid obesity - ICD9: 278.01, ICD10: E66.01 Continue to work on weight loss. Discussed treatment plan and patient voices understanding. Patient's questions answered appropriately. Medications and potential side effects were discussed and patient voices understanding. Return to the office as scheduled or as needed for worsening/no improvement. Sho Chin APRN.RAN CNOV Observed: 03/28/2018 Status: COMPLETED Source: [place] 10:20 AM [facility] REPOSITORY Office Visit ([facility]) YOBANY LONDONO ([id number]) 1980 F DARYL Date Time Provider Department 03/28/18 10:20 AM SHO CHIN ([facility] During your visit today, we recorded the following information about you: Pulse Respiration Blood pressure Weight 70/minute 12/minute 128/70 132.5 kg Sho Chin ([facility]) 03/28/2018 12:56 PM Signed This is a 37 year old female who presents today with: Patient presents with: Hospital Follow Up: COPD INITIAL CONTACT Provider Action/FYI: ? Medication History Not Completed Patient unable to be reached after two or more unsuccessful outreach attempts. No further attempts to contact patient will be made. SUMMARY: -Pt discharged from [facility] [place] on 03/24/18. -Follow up appointment on 03/28/18 with another provider in PCP office; 04/01/18 with PCP; 04/17/18 with Sleep Disorder center. -Medication review not done. -Admitted for SOB/ Wheezing MyChart message left for patient asking which appointment she would like to keep for post hospital discharge visit. As of this note, the message has not been read by the patient. Patient has [facility] Pharmacy Outreach number if she would like to call back. Africa Moore ([employer]) March 26, 2018 9:06 AM HISTORY OF PRESENT ILLNESS: Yobany Londono is a 37 year old female. Patient presents with: Hospital Follow Up: COPD Last Saturday, was taking son to hospital at [facility] for his health problems. Refers that she collapsed at the door. They took her to ER and found to have O2 sat in the 70's. Admitted on 03/21/18 Discharged on 03/24/18. Hospital Course: Ms. Yobany Londono is a 37 ?F with morbid obesity, PMH of COPD/asthma, depression, arthritis, HTN, active smoker, fibromyalgia who presents with shortness of breath with wheezing?x 2 days. Also complaints of cough with greenish expectoration, pleuritic chest pain, fever and chills. ?She has been using her inhaler approx 1/hour and she has increased her Symbicort usage from twice to three times daily. She had 3 ED visit in the last couple of months for similar symptoms. She was treated for COPD exacerbation Assessment AND Plan ? ? Assessment: ? Acute on chronic hypoxemic respiratory failure due to COPD exacerbation Patient was treated with bronchodilators, Prednisone and short course of Azithromycin with significant improvement. Patient to finish brief course of prednisone and Azithromycin on discharge. ? She was assessed for home oxygen and prescribed 3 L/min nasal oxygen with ambulation and at night time for discharge . ? Needs Outpatient Pulmonary follow up and spirometry pre and post bronchodilator May also need sleep study for IVA/OHS and need for CPAP - appointment requested. Counseled about smoking cessation. Patient receptive but has tried multiple times in the past but failed. Lot of stressors at home ? ? Refers now, she is on O2 all of the time. She needs a form filled out for an order for portable oxygen. Currently with e tank and has trouble moving it in and out of the vehicle. Only takes off for limited times. Refers that she did stop smoking last Saturday. She has finished prednisone and antibiotics. Breathing hasn't been too bad. Using symbicort twice daily. Almost out of nebulizers -- needs refills. REVIEW OF SYSTEMS GENERAL: No unintentional weight loss (she is happy as she lost 2 pounds), malaise or fevers/chills HEENT: Negative for frequent or significant headaches, No changes in hearing or vision. NECK: Negative for lumps, goiter, pain and significant neck swelling RESPIRATORY: + cough. + wheeze. + SOB with exertion. + continuous O2. CARDIOVASCULAR: Negative for chest pain, leg swelling, orthopnea, or palpitations GI: No nausea, vomiting, or diarrhea/constipation. No hematochezia/melena. No heartburn or reflux symptoms. 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 - ORAL SURGERY PROCEDURE teeth removed - PAST SURGICAL HISTORY OF TM tubes - REMOVAL OF TONSILS,<12 Y/O Tonsillectomy - TUBAL LIGATION ALLERGIES Seasonal Allergies; Penicillins MEDICATIONS Current Outpatient Prescriptions: COMPOUNDED PRESCRIPTION Home oxygen : 3 Litre per minute with exercise and at hours of sleep via nasal canula with conserving device Associated diagnosis : COPD nicotine (NICODERM CQ) 14 mg/24 hr Apply 1 Patch as directed every 24 hours. nicotine (NICODERM CQ) 7 mg/24 hr Apply 1 Patch as directed every 24 hours. nicotine (NICODERM) 21 mg/24 hr Apply 1 Patch as directed once daily. Use the 21 mg /24 hour strength patches for 10 days, then reduce to 14 mg/24 hour patches for 10 days then the lowest strength 7 mg/24 hour patch for 10 days and then stop completely. Please do not smoke while you are using the patches. guaiFENesin-dextromethorphan (ROBITUSSIN DM) 100-10 mg/5 mL syrup Take 10 mL by mouth every 6 hours as needed for Cough. meloxicam (MOBIC) 15 mg tablet TAKE ONE TABLET BY MOUTH ONCE DAILY WITH FOOD ondansetron (ZOFRAN) 4 mg tablet Take 1 tablet by mouth every 12 hours as needed for Nausea/Vomiting. B Complex Vitamins capsule TAKE ONE CAPSULE BY MOUTH EVERY DAY cyclobenzaprine (FLEXERIL) 10 mg tablet Take 1 tablet by mouth every 8 hours as needed. lidocaine (LIDODERM) 5 % Apply 1 Patch as directed every 24 hours. albuterol (PROVENTIL) 2.5 mg /3 mL (0.083 %) nebulizer solution Use 3 mL via nebulizer one time only for 1 dose. Use over 5-15minutes. budesonide-formoterol (SYMBICORT) 160-4.5 mcg/actuation inhaler Inhale 2 Puffs as instructed twice daily. albuterol (PROVENTIL) 2.5 mg /3 mL (0.083 %) nebulizer solution inhale the contents of 1 vial via nebulizer four times daily over 5-15 minutes omeprazole (PRILOSEC) 20 mg capsule Take 1 capsule by mouth daily before breakfast. 1/2 hr before meal. albuterol HFA (VENTOLIN HFA) 90 mcg/actuation inhaler Inhale 2 Puffs as instructed every 6 hours as needed for Wheezing/Shortness of Breath. acetaminophen (TYLENOL) 500 mg tablet EVERY 6 HOURS NEEDED citalopram (CELEXA) 40 mg tablet Take 1 tablet by mouth once daily. fluticasone (FLONASE) 50 mcg/actuation nasal spray Use 2 Sprays in each nostril once daily. Rinse mouth after use. vitamin b complex (B COMPLETE) tab Take 1 tablet by mouth once daily. loratadine (CLARITIN) 10 mg tablet Take 1 tablet by mouth once daily as needed. FOR ALLERGY SYMPTOMS multivitamin tablet Take 1 tablet by mouth once daily. No current facility-administered medications for this visit. FAMILY HISTORY Problem Relation Age of Onset - Adopted: Yes - Diabetes Father - Hypertension Mother - Cancer Mother liver cancer - osteoarthritis [OTHER] Mother - Heart Maternal Grandmother - Cancer Maternal Grandmother - Diabetes Paternal Grandfather - Prostate Cancer Paternal Grandfather - Stroke Paternal Grandmother - Heart Sister hole in heart - Breast Cancer Sister - Alcohol/Drug Sister - osteochondroma [OTHER] Son - osteochondroma [OTHER] Son Social History Marital status: Spouse name: Years of education: Number of children: Occupational History Occupation Employer Comment unemployed, disabi* Social History Main Topics Smoking status: Current Every Day Smoker Packs/day: 0.50 Years: 15.00 Types: Cigarettes Smokeless tobacco: Never Used Comment: Trying to quit Alcohol use: No Comment: rare wine cooler- not while Drug use: No Sexual activity: Yes Partners with: Male control/protection: None Social History Narrative Mother 2011. Father needs her help. 2 sons. EXAM: BP 128/70 (BP Site: Left Arm, BP Position: Sitting, BP Cuff Size: Large Adult) Pulse 70 Resp 12 Wt 132.5 kg (292 lb) BMI 55.17 kg/m? T36.4. PHYSICAL EXAM: General Appearance: Well appearing, alert, in no acute distress, well-hydrated, well nourished.. Skin: Skin color, texture, turgor normal, no suspicious rashes or lesions. Head: Normocephalic, no masses, lesions, tenderness or abnormalities. Eyes: Anicteric sclera. Extraocular movements are intact. . Oropharynx: Lips, mucosa, and tongue normal, teeth and gums normal, oropharynx normal. Neck: Supple, no adenopathy Lungs: L/S course with scattered exp wheezes throughout. Heart: RRR without murmur, gallop, or rubs. No ectopy. Abdomen: Abdomen soft, non-tender. Extremities: No deformities, edema, skin discoloration, clubbing or cyanosis. Neurologic: Gait normal. ASSESSMENT/PLAN: 1. Chronic obstructive pulmonary disease with acute exacerbation (HCC) - ICD9: 491.21, ICD10: J44.1 (primary diagnosis) - CONSULT TO PULM/CRITICAL CARE - ALBUTEROL SULFATE 2.5 MG/3 ML (0.083 %) SOLUTION FOR NEBULIZATION - CONSULT TO SLEEP MEDICINE - ADULT - POLYSOMNOGRAM (PSG)/HOME SLEEP APNEA TESTING (HSAT) 2. Low oxygen saturation - ICD9: 790.91, ICD10: R79.81 - CONSULT TO SLEEP MEDICINE - ADULT - POLYSOMNOGRAM (PSG)/HOME SLEEP APNEA TESTING (HSAT) - nebulizers refilled. 3. On home O2 - ICD9: V46.2, ICD10: Z99.81 Form completed for portable O2. 4. Tobacco use disorder - ICD9: 305.1, ICD10: F17.200 - Continue nicotine patches. - Aware that she cannot smoke with patches on and cannot smoke near O2! - Keep up the good work with cessation. 5. Morbid obesity - ICD9: 278.01, ICD10: E66.01 Continue to work on weight loss. Discussed treatment plan and patient voices understanding. Patient's questions answered appropriately. Medications and potential side effects were discussed and patient voices understanding. Return to the office as scheduled or as needed for worsening/no improvement. Sho Chin APRN.BUFFER CHROME Referring Provider: SELF [[id number]] Allergies As of Date: 03/28/2018 Noted Allergy Reaction SEASONAL ALLERGIES 05/04/2013 5 - Intolerance PENICILLINS 02/11/2007 2 - Rash 11 - Vomiting Comments: JUST SENSITIVITY TO PCN PER DR FAJARDO Date Reviewed: 03/28/2018 Reviewed by: Carli Pinzon Cma - Fully Assessed Reason for Visit: Hospital Follow Up [177] Cmt: COPD Reason For Visit History Recorded Primary Visit Diagnosis:Chronic obstructive pulmonary disease with acute exacerbation (HCC) [J44.1] Other Visit Diagnoses:Low oxygen saturation [R79.81] On home O2 [Z99.81] Tobacco use disorder [F17.200] Morbid obesity [E66.01] Order(s):CONSULT TO PULM/CRITICAL CARE [20000125] Order #: [id number]: 1 albuterol (PROVENTIL) 2.5 mg /3 mL (0.083 %) nebulizer solutionUse 3 mL via nebulizer every 4 hours as needed for Wheezing/Shortness of Breath. Use over 5-15minutes.Disp: 120 VialRfl: 1 CONSULT TO SLEEP MEDICINE - ADULT [5069630] Order #: [id number]: 1 POLYSOMNOGRAM (PSG)/HOME SLEEP APNEA TESTING (HSAT) [6011682] Order #: [id number] FUTURE Prescriptions as of 03/28/2018 Sig: COMPOUNDED PRESCRIPTION Home oxygen : 3 Litre per min* NICOTINE 14 MG/24 HR DAILY TR* Apply 1 Patch as directed yoly* NICOTINE 7 MG/24 HR DAILY TRA* Apply 1 Patch as directed yoly* NICOTINE 21 MG/24 HR DAILY TR* Apply 1 Patch as directed onc* DEXTROMETHORPHAN-GUAIFENESIN * Take 10 mL by mouth every 6 h* MELOXICAM 15 MG TABLET TAKE ONE TABLET BY MOUTH ONCE* ONDANSETRON HCL 4 MG TABLET Take 1 tablet by mouth every * VITAMIN B COMPLEX CAPSULE TAKE ONE CAPSULE BY MOUTH YOLY* CYCLOBENZAPRINE 10 MG TABLET Take 1 tablet by mouth every * LIDOCAINE 5 % TOPICAL PATCH Apply 1 Patch as directed yoly* BUDESONIDE-FORMOTEROL HFA 160* Inhale 2 Puffs as instructed * OMEPRAZOLE 20 MG CAPSULE,GHASSAN* Take 1 capsule by mouth daily* ALBUTEROL SULFATE HFA 90 MCG/* Inhale 2 Puffs as instructed * ACETAMINOPHEN 500 MG TABLET EVERY 6 HOURS NEEDED CITALOPRAM 40 MG TABLET Take 1 tablet by mouth once d* FLUTICASONE 50 MCG/ACTUATION * Use 2 Sprays in each nostril * VITAMIN B COMPLEX TABLET Take 1 tablet by mouth once d* LORATADINE 10 MG TABLET Take 1 tablet by mouth once d* MULTIVITAMIN TABLET Take 1 tablet by mouth once d* ALBUTEROL SULFATE 2.5 MG/3 ML* Use 3 mL via nebulizer every * Problem List As Of Date 03/28/2018 Noted Resolved Pulpitis [K04.01] INVALID FOR* OTHER LUNG DISEASE NEC [J98.4] INVALID FOR*03/09/2008 Tobacco use disorder [F17.200] INVALID FOR* Priority: L More... Acute Bronchitis [J20.9] INVALID FOR* Chronic Airway Obstruction, not Elsewhere Class*INVALID FOR* Morbid obesity [E66.01] Priority: L More... Back pain [M54.9] More... Osteochondroma, multiple [Q78.6] More... Asthma [J45.909] Depression with anxiety [F41.8] Asthma exacerbation [J45.901] INVALID FOR* SOB (shortness of breath) [R06.02] INVALID FOR* Fibromyalgia [M79.7] INVALID FOR* Priority: L More... History of section [Z98.891] INVALID FOR* More... Obesity in [O99.210] INVALID FOR*03/07/2018 More... Supervision of normal [Z34.90] INVALID FOR*03/07/2018 Family history of seizure disorder [Z82.0] INVALID FOR* More... Encounter for sterilization [Z30.2] INVALID FOR* More... cardiac anomaly affecting , ante*INVALID FOR*03/07/2018 [Z34.90] INVALID FOR*03/07/2018 COPD exacerbation (HCC) [J44.1] INVALID FOR*03/24/2018 Priority: A More... Obesity, Class III, BMI >= 40 E66.01 [E66.01] INVALID FOR* Healthcare maintenance [Z00.00] INVALID FOR*03/24/2018 Priority: M More... On home O2 [Z99.81] INVALID FOR* Prescriptions ordered this encounter Disp Refills Start End ALBUTEROL SULFATE 2.5 MG/3 ML (0.083* 120 * 1 03/28/2018 Route: NEBULIZATION Sig: Use 3 mL via nebulizer every 4 hours as needed for Wheezing/Shortness of Breath. Use over 5-15minutes. Medications Discontinued During This Encounter albuterol (PROVENTIL) 2.5 mg /3 mL (* 180 * 3 12/20/2017 03/28/2018 Cmt: This prescription was filled on 12/20/2017. Any refills authorized will be placed on file. Sig: inhale the contents of 1 vial via nebulizer four times daily over 5-15 minutes Disc: Reason for discontinue is not on file. albuterol (PROVENTIL) 2.5 mg /3 mL (* 3 mL 0 02/22/2018 03/28/2018 Class: In Office Route: NEBULIZATION -UNSPEC Sig: Use 3 mL via nebulizer one time only for 1 dose. Use over 5-15minutes. Disc: Course of therapy completed Follow-up and Disposition History Recorded Encounter Status:Closed by SHO CHIN CNP on 03/28/18 PROGRESS Observed: 03/26/2018 Status: COMPLETED Source: [place] 9:06 AM [facility] REPOSITORY HNO ID: [id number] Author: Oscar ([facility])[place] Service: (none) Author Type: (none) Type: Progress Notes Filed: 03/26/2018 9:10 AM Note Text: TRANSITION CARE MANAGEMENT (TCM) INITIAL CONTACT Provider Action/FYI: ? Medication History Not Completed Patient unable to be reached after two or more unsuccessful outreach attempts. No further attempts to contact patient will be made. SUMMARY: -Pt discharged from [facility] [place] on 03/24/18. -Follow up appointment on 03/28/18 with another provider in PCP office; 04/01/18 with PCP; 04/17/18 with Sleep Disorder center. -Medication review not done. -Admitted for SOB/ Wheezing MyChart message left for patient asking which appointment she would like to keep for post hospital discharge visit. As of this note, the message has not been read by the patient. Patient has TCM Pharmacy Outreach number if she would like to call back. Africa Moore ([facility]) March 26, 2018 9:06 AM RANTOUTREACH Observed: 03/25/2018 Status: COMPLETED Source: [place] 12:00 AM [facility] REPOSITORY Patient Outreach (PHRXRF) YOBANY LONDONO ([id number]) 1980 F DARYL Date Time Provider Department 03/25/18 LUCA PAUL PHARMD During your visit today, we recorded the following information about you: Oscar ([facility])[place] 03/26/2018 9:10 AM Signed TRANSITION CARE MANAGEMENT (TCM) INITIAL CONTACT Provider Action/FYI: ? Medication History Not Completed Patient unable to be reached after two or more unsuccessful outreach attempts. No further attempts to contact patient will be made. SUMMARY: -Pt discharged from [facility] [place] on 03/24/18. -Follow up appointment on 03/28/18 with another provider in PCP office; 04/01/18 with PCP; 04/17/18 with Sleep Disorder center. -Medication review not done. -Admitted for SOB/ Wheezing MyChart message left for patient asking which appointment she would like to keep for post hospital discharge visit. As of this note, the message has not been read by the patient. Patient has [facility] Pharmacy Outreach number if she would like to call back. Africa Moore ([facility]) March 26, 2018 9:06 AM Allergies As of Date: 03/25/2018 Noted Allergy Reaction SEASONAL ALLERGIES 05/04/2013 5 - Intolerance PENICILLINS 02/11/2007 2 - Rash 11 - Vomiting Comments: JUST SENSITIVITY TO PCN PER DR FAJARDO Date Reviewed: 03/24/2018 Reviewed by: Shelli Macdonald (Rn), RN - Fully Assessed Reason for Visit: Transition Of Care [4074] Cmt: Hospital Discharge 03/24/18 Prescriptions as of 03/25/2018 Sig: COMPOUNDED PRESCRIPTION Home oxygen : 3 Litre per min* PREDNISONE 20 MG TABLET Take 2 tablets by mouth once * NICOTINE 14 MG/24 HR DAILY TR* Apply 1 Patch as directed yoly* NICOTINE 7 MG/24 HR DAILY TRA* Apply 1 Patch as directed yoly* NICOTINE 21 MG/24 HR DAILY TR* Apply 1 Patch as directed onc* AZITHROMYCIN 500 MG TABLET Take 1 tablet by mouth once d* DEXTROMETHORPHAN-GUAIFENESIN * Take 10 mL by mouth every 6 h* MELOXICAM 15 MG TABLET TAKE ONE TABLET BY MOUTH ONCE* ONDANSETRON HCL 4 MG TABLET Take 1 tablet by mouth every * VITAMIN B COMPLEX CAPSULE TAKE ONE CAPSULE BY MOUTH YOLY* CYCLOBENZAPRINE 10 MG TABLET Take 1 tablet by mouth every * LIDOCAINE 5 % TOPICAL PATCH Apply 1 Patch as directed yoly* ALBUTEROL SULFATE 2.5 MG/3 ML* Use 3 mL via nebulizer one ti* BUDESONIDE-FORMOTEROL HFA 160* Inhale 2 Puffs as instructed * ALBUTEROL SULFATE 2.5 MG/3 ML* inhale the contents of 1 vial* OMEPRAZOLE 20 MG CAPSULE,GHASSAN* Take 1 capsule by mouth daily* ALBUTEROL SULFATE HFA 90 MCG/* Inhale 2 Puffs as instructed * ACETAMINOPHEN 500 MG TABLET EVERY 6 HOURS NEEDED CITALOPRAM 40 MG TABLET Take 1 tablet by mouth once d* FLUTICASONE 50 MCG/ACTUATION * Use 2 Sprays in each nostril * VITAMIN B COMPLEX TABLET Take 1 tablet by mouth once d* LORATADINE 10 MG TABLET Take 1 tablet by mouth once d* MULTIVITAMIN TABLET Take 1 tablet by mouth once d* Problem List As Of Date 03/25/2018 Noted Resolved Pulpitis [K04.01] INVALID FOR* OTHER LUNG DISEASE NEC [J98.4] INVALID FOR*03/09/2008 Tobacco use disorder [F17.200] INVALID FOR* Priority: L More... Acute Bronchitis [J20.9] INVALID FOR* Chronic Airway Obstruction, not Elsewhere Class*INVALID FOR* Morbid obesity [E66.01] Priority: L More... Back pain [M54.9] More... Osteochondroma, multiple [Q78.6] More... Asthma [J45.909] Depression with anxiety [F41.8] Asthma exacerbation [J45.901] INVALID FOR* SOB (shortness of breath) [R06.02] INVALID FOR* Fibromyalgia [M79.7] INVALID FOR* Priority: L More... History of section [Z98.891] INVALID FOR* More... Obesity in [O99.210] INVALID FOR*03/07/2018 More... Supervision of normal [Z34.90] INVALID FOR*03/07/2018 Family history of seizure disorder [Z82.0] INVALID FOR* More... Encounter for sterilization [Z30.2] INVALID FOR* More... cardiac anomaly affecting , ante*INVALID FOR*03/07/2018 [Z34.90] INVALID FOR*03/07/2018 COPD exacerbation (HCC) [J44.1] INVALID FOR*03/24/2018 Priority: A More... Obesity, Class III, BMI >= 40 E66.01 [E66.01] INVALID FOR* Healthcare maintenance [Z00.00] INVALID FOR*03/24/2018 Priority: M More... Encounter Status:Closed by OSCAR (SQL ENGINEER)AFRICA on 03/26/18 PT ED Observed: 03/24/2018 Status: COMPLETED Source: [place] 3:11 PM [facility] REPOSITORY HNO ID: [id number] Author: Remington (Pharmacist)Terrell Service: Pharmacy Author Type: Pharmacist Type: Patient Education Filed: 03/24/2018 3:24 PM Note Text: PHARMACY COPD EDUCATION PATIENT NAME: Yobany Londono ADMISSION DATE: 03/21/2018 DATE OF CONTACT: March 24, 2018 TIME OF CONTACT: 3:23 PM 1. Patient COPD Severity? Unknown 2. Smoking Status: Current Smoker 3. Patient prescribed a bronchodilator? Yes 4. COPD Education choices: Patient was sleeping at time of initial visit. Patient was discharged prior to return for patient education. SIGNATURE: TERRELL BELTRÁN, PHARMACIST [id number] CNDS Observed: 03/24/2018 Status: COMPLETED Source: [place] 3:11 PM [facility] REPOSITORY HNO ID: [id number] Author: Salvador Weaver Service: Hospital Medicine Author Type: Physician Type: Discharge Summaries Filed: 03/25/2018 3:58 PM Note Text: DISCHARGE SUMMARY PATIENT NAME: Yobany Londono ADMISSION DATE: 03/21/2018 DISCHARGE DATE: 03/24/2018 Attending Physician: Salvador Weaver Reason for Hospitalization: Active Problems: Tobacco use disorder Morbid obesity Fibromyalgia Resolved Problems: COPD exacerbation (HCC) Healthcare maintenance Operations During Hospitalization: None Procedures During Hospitalization: No procedures performed Hospital Course: Ms. Yobany Londono is a 37 ?F with morbid obesity, PMH of COPD/asthma, depression, arthritis, HTN, active smoker, fibromyalgia who presents with shortness of breath with wheezing?x 2 days. Also complaints of cough with greenish expectoration, pleuritic chest pain, fever and chills. ?She has been using her inhaler approx 1/hour and she has increased her Symbicort usage from twice to three times daily. She had 3 ED visit in the last couple of months for similar symptoms. She was treated for COPD exacerbation ? ASSESSMENT AND PLAN Assessment AND Plan, Hosp Problems our Service Addressed Pulmonary Tobacco use disorder Assessment AND Plan ? Assessment: Current 10 cigarette/day smoker. Contemplative re: cessation. Open to patches. ? PLAN: Nicoderm patches prescribed Cessation advise given and strongly encouraged ? ? ? COPD exacerbation (HCC) Assessment AND Plan ? ? Assessment: Acute on chronic hypoxemic respiratory failure due to COPD exacerbation Patient was treated with bronchodilators, Prednisone and short course of Azithromycin with significant improvement. Patient to finish brief course of prednisone and Azithromycin on discharge. She was assessed for home oxygen and prescribed 3 L/min nasal oxygen with ambulation and at night time for discharge . Needs Outpatient Pulmonary follow up and spirometry pre and post bronchodilator May also need sleep study for IVA/OHS and need for CPAP - appointment requested. Counseled about smoking cessation. Patient receptive but has tried multiple times in the past but failed. Lot of stressors at home ? ? ? Fibromyalgia Assessment AND Plan ? Assessment: Chronic, stable. PLAN: Continue tylenol ? ? ? Morbid obesity Assessment AND Plan ? Assessment: BMI 56, suspect IVA/obesity hypoventilation is contributing to her symptoms. ? PLAN: Follow up sleep study Encourage diet and lifestyle changes ? ? Labs and Procedures Pending at Discharge: No pending results. Consulting Teams During Hospitalization: None Patient Condition @ Discharge: Stable Discharge Disposition: Home/Self Care PHYSICAL EXAMINATION: General appearance: Well appearing, alert, in no acute distress, well-hydrated, well nourished Skin: Skin color, texture, turgor normal, no suspicious rashes or lesions Neck: Supple, no adenopathy; thyroid symmetric, normal size, no bruits Lungs: Lungs clear to auscultation. No wheezing, rhonchi, rales Heart: RRR without murmur, gallop, or rubs. No ectopy Abdomen: Normal abdominal exam, Abdomen soft, non-tender. Bowel sounds normal. No masses, organomegaly Extremities: No deformities, edema, skin discoloration, clubbing or cyanosis. Good capillary refill Musculoskeletal: No joint swelling, deformity, or tenderness Neuro: Oriented X 3, Grossly normal cranial nerves and motor strength Information Provided to Patient: Detailed discharge and follow-up instructions provided separately Additional Provider to Provider Information: Transitions of Care Critical Issues: IMAGING FOLLOW-UP: None LAB MONITORING NEEDED: None SPECIALIST FOLLOW-UP: Pulmonary THAO MEDICATION CHANGES: Please see updates list below FOLLOW-UP APPOINTMENTS ALREADY SCHEDULED WITH A [facility] PROVIDER Discharge Medications: Discharge Medication List as of 03/24/2018 2:42 PM START taking these medications COMPOUNDED PRESCRIPTION Home oxygen : 3 Litre per minute with exercise and at hours of sleep via nasal canula with conserving device Associated diagnosis : COPD Print RX, Disp-1 Device, R-0 predniSONE (DELTASONE) 20 mg tablet Take 2 tablets by mouth once daily for 2 doses. Print RX, Disp-4 tablet, R-0 nicotine (NICODERM CQ) 14 mg/24 hr Apply 1 Patch as directed every 24 hours. Print RX, Disp-10 Patch, R-0, Long-term nicotine (NICODERM CQ) 7 mg/24 hr Apply 1 Patch as directed every 24 hours. Print RX, Disp-10 Patch, R-0, Long-term nicotine (NICODERM) 21 mg/24 hr Apply 1 Patch as directed once daily. Use the 21 mg /24 hour strength patches for 10 days, then reduce to 14 mg/24 hour patches for 10 days then the lowest strength 7 mg/24 hour patch for 10 days and then stop completely. Please do not smoke while you ar e using the patches. Print RX, Disp-10 Patch, R-0, Long-term azithromycin (ZITHROMAX) 500 mg tablet Take 1 tablet by mouth once daily for 2 days. Print RX, Disp-2 tablet, R-0 guaiFENesin-dextromethorphan (ROBITUSSIN DM) 100-10 mg/5 mL syrup Take 10 mL by mouth every 6 hours as needed for Cough. Print RX, Disp-354 mL, R-0 CONTINUE these medications which have NOT CHANGED meloxicam (MOBIC) 15 mg tablet TAKE ONE TABLET BY MOUTH ONCE DAILY WITH FOOD Normal, Disp-90 tablet, R-2 This prescription was filled on 03/21/2018. Any refills authorized will be placed on file. Dx: 1. Acute pain of right knee ondansetron (ZOFRAN) 4 mg tablet Take 1 tablet by mouth every 12 hours as needed for Nausea/Vomiting. Print RX, Disp-12 tablet, R-0 B Complex Vitamins capsule TAKE ONE CAPSULE BY MOUTH EVERY DAY Normal, Disp-90 capsule, R-3, Long-term cyclobenzaprine (FLEXERIL) 10 mg tablet Take 1 tablet by mouth every 8 hours as needed. Print RX, Disp-14 tablet, R-0 lidocaine (LIDODERM) 5 % Apply 1 Patch as directed every 24 hours. Print RX, Disp-7 Patch, R-0 budesonide-formoterol (SYMBICORT) 160-4.5 mcg/actuation inhaler Inhale 2 Puffs as instructed twice daily. Normal, Disp-1 Inhaler, R-11, Long-term Dx: 1. Moderate persistent asthma with exacerbation albuterol (PROVENTIL) 2.5 mg /3 mL (0.083 %) nebulizer solution inhale the contents of 1 vial via nebulizer four times daily over 5-15 minutes Normal, Disp-180 mL, R-3, Long-term This prescription was filled on 12/20/2017. Any refills authorized will be placed on file. omeprazole (PRILOSEC) 20 mg capsule Take 1 capsule by mouth daily before breakfast. 1/2 hr before meal. Normal, Disp-90 capsule, R-3, Long-term albuterol HFA (VENTOLIN HFA) 90 mcg/actuation inhaler Inhale 2 Puffs as instructed every 6 hours as needed for Wheezing/Shortness of Breath. Normal, Disp-1 Inhaler, R-5 acetaminophen (TYLENOL) 500 mg tablet EVERY 6 HOURS NEEDED Historical Med citalopram (CELEXA) 40 mg tablet Take 1 tablet by mouth once daily. Normal, Disp-90 tablet, R-3 Dx: 1. Depression with anxiety fluticasone (FLONASE) 50 mcg/actuation nasal spray Use 2 Sprays in each nostril once daily. Rinse mouth after use. Normal, Disp-1 Bottle, R-1 Dx: 1. Bacterial sinusitis vitamin b complex (B COMPLETE) tab Take 1 tablet by mouth once daily. Normal, Disp-90 tablet, R-3 Dx: 1. Cramp of both lower extremities loratadine (CLARITIN) 10 mg tablet Take 1 tablet by mouth once daily as needed. FOR ALLERGY SYMPTOMS Normal, Disp-30 tablet, R-5 multivitamin tablet Take 1 tablet by mouth once daily. OTC, R-0 STOP taking these medications ibuprofen (MOTRIN) 600 mg tablet Comments: Reason for Stopping: Future Appointments Date Time Provider Department Center 03/28/2018 10:20 AM Sho Chin (Ran) [facility] 04/01/2018 4:00 PM Juany Holt [facility] 04/17/2018 2:40 PM Sylvia Bailey NE[facility] Bldg TIME OF CARE: Discharge Management: I personally spent greater than 30 minutes involved in the discharge management of this patient. SIGNATURE: Salvador Weaver MD PAGER: [phone] DATE: March 25, 2018 TIME: 3:48 PM PLAN OF CARE Observed: 03/24/2018 Status: COMPLETED Source: [place] 2:11 PM [facility] REPOSITORY HNO ID: [id number] Author: Dory (Food Production Manager)Rizwana Service: (none) Author Type: (none) Type: Plan of Care Filed: 03/24/2018 2:13 PM Note Text: PHARMACY BEDSIDE DELIVERY SERVICE Patient Name: Yobany Londono The marked outpatient medications were Filled at: [facility] and delivered to the patient's bedside to patient Medication List START taking these medications azithromycin 500 mg tablet Commonly known as: ZITHROMAX Take 1 tablet by mouth once daily for 2 days. DELIVERED TO PATIENT COMPOUNDED PRESCRIPTION Home oxygen : 3 Litre per minute with exercise and at hours of sleep via nasal canula with conserving device Associated diagnosis : COPD guaiFENesin-dextromethorphan 100-10 mg/5 mL syrup Commonly known as: ROBITUSSIN DM Take 10 mL by mouth every 6 hours as needed for Cough. HARDCOPY TO PATIENT * nicotine 14 mg/24 hr Commonly known as: NICODERM CQ Apply 1 Patch as directed every 24 hours. HARDCOPY TO PATIENT * nicotine 7 mg/24 hr Commonly known as: NICODERM CQ Apply 1 Patch as directed every 24 hours. HARDCOPY TO PATIENT * nicotine 21 mg/24 hr Commonly known as: NICODERM Apply 1 Patch as directed once daily. Use the 21 mg /24 hour strength patches for 10 days, then reduce to 14 mg/24 hour patches for 10 days then the lowest strength 7 mg/24 hour patch for 10 days and then stop completely. Please do not smoke while you are using the patches. Start taking on: 03/25/2018 DELIVERED TO PATIENT predniSONE 20 mg tablet Commonly known as: DELTASONE Take 2 tablets by mouth once daily for 2 doses. Start taking on: 03/25/2018 DELIVERED TO PATIENT * This list has 3 medication(s) that are the same as other medications prescribed for you. Read the directions carefully, and ask your doctor or other care provider to review them with you. CONTINUE taking these medications acetaminophen 500 mg tablet Commonly known as: TYLENOL * albuterol HFA 90 mcg/actuation inhaler Commonly known as: VENTOLIN HFA Inhale 2 Puffs as instructed every 6 hours as needed for Wheezing/Shortness of Breath. * albuterol 2.5 mg /3 mL (0.083 %) nebulizer solution Commonly known as: PROVENTIL inhale the contents of 1 vial via nebulizer four times daily over 5-15 minutes * albuterol 2.5 mg /3 mL (0.083 %) nebulizer solution Commonly known as: PROVENTIL Use 3 mL via nebulizer one time only for 1 dose. Use over 5-15minutes. budesonide-formoterol 160-4.5 mcg/actuation inhaler Commonly known as: SYMBICORT Inhale 2 Puffs as instructed twice daily. citalopram 40 mg tablet Commonly known as: CeleXA Take 1 tablet by mouth once daily. cyclobenzaprine 10 mg tablet Commonly known as: FLEXERIL Take 1 tablet by mouth every 8 hours as needed. fluticasone 50 mcg/actuation nasal spray Commonly known as: FLONASE Use 2 Sprays in each nostril once daily. Rinse mouth after use. lidocaine 5 % Commonly known as: LIDODERM Apply 1 Patch as directed every 24 hours. loratadine 10 mg tablet Commonly known as: CLARITIN Take 1 tablet by mouth once daily as needed. FOR ALLERGY SYMPTOMS meloxicam 15 mg tablet Commonly known as: MOBIC TAKE ONE TABLET BY MOUTH ONCE DAILY WITH FOOD multivitamin tablet Take 1 tablet by mouth once daily. omeprazole 20 mg capsule Commonly known as: PriLOSEC Take 1 capsule by mouth daily before breakfast. 1/2 hr before meal. ondansetron 4 mg tablet Commonly known as: ZOFRAN Take 1 tablet by mouth every 12 hours as needed for Nausea/Vomiting. * vitamin b complex Tab Commonly known as: B COMPLETE Take 1 tablet by mouth once daily. * B Complex Vitamins capsule TAKE ONE CAPSULE BY MOUTH EVERY DAY * This list has 5 medication(s) that are the same as other medications prescribed for you. Read the directions carefully, and ask your doctor or other care provider to review them with you. You might also be taking other medications not listed above. If you have questions about any of your other medications, talk to the person who prescribed them or your Primary Care Provider. STOP taking these medications ibuprofen 600 mg tablet Commonly known as: RITIKA Connors ([facility]) PAGER: [phone] March 24, 2018 2:11 PM CASE MANAGEM Observed: 03/24/2018 Status: COMPLETED Source: [place] 1:27 PM [facility] REPOSITORY HNO ID: [id number] Author: Melanie Ellsi () Service: Care Management Author Type: Supply Chain Procurement Manager Type: Care Mgt Progress Note Filed: 03/24/2018 1:31 PM Note Text: CARE MANAGEMENT DISCHARGE NOTE SERVICE DATE: 03/24/2018 SERVICE TIME: 1:29 PM LOS: 2 days Admission Date: 03/21/2018 DISCHARGE ARRANGEMENT (list agency and phone number) Durable medical equipment and Home Provider: [facility] CAREGIVER ASSESSMENT: Caregiver is ready, willing and able to meet the patient's needs as recommended by the inter-professional team? Yes Patient's transition needs and plan for meeting these needs: Pt is transitioning home with home O2 and assistance from her . Does the patient have an acute stroke diagnosis, or has the patient had a stroke during this admission? No HANDOFF COMMUNICATION: Primary Care Physician: Dr. Holt TRANSPORTATION ARRANGEMENTS: Car - drove self ADDITIONAL CONTACT RESOURCES: N/A Needs Prior to Discharge: None;Ready for Discharge Pt medically stable to transition home today. [facility] delivered tank to pt at bedside and will call pt prior to delivery to home tonight. Pt drove herself to the hospital and is able to drive home. No other needs identified at this time. SIGNATURE: STEPH Melendez PATIENT NAME: Yobany Londono DATE: March 24, 2018 TIME: 1:29 PM PAGER/CONTACT #: [phone] PLAN OF CARE Observed: 03/24/2018 Status: COMPLETED Source: [place] 1:10 PM [facility] REPOSITORY HNO ID: [id number] Author: Chano (Food Production Manager)Juju Service: (none) Author Type: Household Personal Assistant Type: Plan of Care Filed: 03/24/2018 1:10 PM Note Text: Pharmacy Discharge Medication Service: This patient has elected to receive their discharge prescriptions through the [facility] Bedside Prescription Delivery program. The prescriptions are currently being processed. A follow-up note will be entered once the prescriptions have been filled and delivered to the patient. Please contact me with any questions or updates to the patient's discharge medications. Juju Evelynewinifred ([facility]) DCT Contact Info: [phone] PLAN OF CARE Observed: 03/24/2018 Status: COMPLETED Source: [place] 1:09 PM [facility] REPOSITORY HNO ID: [id number] Author: Dory ([facility])Rizwana Service: (none) Author Type: (none) Type: Plan of Care Filed: 03/24/2018 3:58 PM Note Text: HEALTH CARE RECRUITER BEDSIDE DELIVERY SURVEY 1. Patient to use [facility] Bedside Delivery - YES 2. If fax, patient would like us to fax prescriptions to Pharmacy of choice a. Pharmacy: b. Location: c. Phone: 3. Insurance card on file - YES 4. Credit card for payment - YES Josselin Pharmacist contacted me to shorten the description because it would not fit all on the script. Rizwana Connors ALLIED HEALTH Observed: 03/24/2018 Status: COMPLETED Source: [place] 11:25 AM [facility] REPOSITORY HNO ID: [id number] Author: Nadira Mandujano (Therapist)CHIN Service: Music Therapy Author Type: Music Therapist Type: Allied Health Filed: 03/25/2018 12:03 PM Note Text: MUSIC THERAPY NOTE SERVICE DATE: 03/24/2018 Consult received and appreciated. Pt presented with neutral affect upon MT's arrival and was sitting up on the side of the bed. MT introduced music therapy services to pt, to which pt shared that she was soon awaiting to be discharged. Therefore, session was not held. Pt thanked MT for attempt and MT will not follow up as pt has since been discharged. SIGNATURE: Nadira Mandujano MT- PATIENT NAME: Yobany Starkey Holiday DATE: March 25, 2018 TIME: 12:01 PM PAGER/CONTACT #: [phone] ALLIED HEALTH Observed: 03/24/2018 Status: COMPLETED Source: [place] 9:15 AM [facility] REPOSITORY HNO ID: [id number] Author: Ilda Osborn (Rn), RN Service: Healing Service Author Type: Registered Nurse Type: Allied Health Filed: 03/24/2018 2:08 PM Note Text: HEALING SERVICES THERAPY NOTE SERVICE DATE: 03/24/2018 SERVICE TIME: 914 INTERVENTIONAL FOCUS: Anxiety Relaxation Visit With: Patient Urgency of Visit: Routine Type of Visit: Introductory Visit Patient introduced to Healing Services available to them. Provided supportive community for pt who is alone. Created an environment of peace and calm using slow, soothing speech and a quiet, gentle, accepting presence to promote pt's healing. She shared that she needs to be discharged as soon as possible due to her youngest child not eating (the child has several health issues). She shared the reasons for her admission and talked about her fears and worries about her children and the difficulty her sister is having caring for them while she is in the hospital. Empathetic, active listening and therapeutic presence provided, allowing the patient to express her feelings. The ANM was updated on the patients concerns. All questions answered and materials left at bedside. Re-visit from Healing Services Team: Yes. If requested. SIGNATURE: Ilda Osborn RN PATIENT NAME: Yobany Starkey DATE: March 24, 2018 TIME: 9:30 AM PAGER/CONTACT #: [phone] CASE MGT INIT Observed: 03/24/2018 Status: COMPLETED Source: [facility] 8:32 AM [facility] REPOSITORY O ID: [id number] Author: Melanie Ellis () Service: Care Management Author Type: Supply Chain Procurement Manager Type: Care Mgt Initial Assessment Filed: 03/24/2018 11:18 AM Note Text: CARE MANAGEMENT: ASSESSMENT AND DISCHARGE PLAN SERVICE DATE: 03/24/2018 SERVICE TIME: 11:16 AM PRIMARY CARE PHYSICIAN: Juany Holt -confirmed by pt ADMISSION STATUS: Inpatient Needs Prior to Discharge: To Be Determined MEDICAL: Patient/Treatment Counselor Stated Goals: To have reduction in symptoms To improve my functional status Health Insurance: [facility] MEDICAID Health Issues Impacting Discharge Plan: PMH of COPD, depression, obesity, arthritis, HTN, and fibromyalgia Last Admission Date: Previous admit date: 06/22/2016 Is this Within the Past 30 days? No Advance Directive: Health Literacy: 1. How often do you need to have someone help you when you read instructions, pamphlets, or other written material from your doctor or pharmacy? Never - 1 2. How confident are you filling out medical forms by yourself? Extremely - 1 If Patient scores > 3 on either question, the following interventions were put into place: Patient did not score > 3 FUNCTIONAL AND COGNITIVE/BEHAVIORAL PRIOR TO ADMISSION: Baseline Mental Status: Alert AND Oriented, Person, Place , Time and Situation Functional Status: Independent Does Patient Currently Receive Any Community Services or Home Care? None Equipment Prior to Admission: Aerosols/Intermittent positive breathing/Respiratory Treatments Has the Patient Been in a [facility] Facility in the Past 30 days? No SOCIAL: Living Arrangement: Home Lives With: Spouse and 3 children Financial Resources: Disabled Primary Contact: Extended Emergency Contact Information Primary Emergency Contact: Trudi Londono Mobile Relation: Spouse Secondary Emergency Contact: Sarah Godinez Mobile Relation: Father Supportive: Yes Other Important Patient Contacts: None Caregiver Assessment: Caregiver is ready, willing and able to meet the patient's needs as recommended by the inter-professional team? No Caregiver Needed Patient's transition needs and plan for meeting these needs: Pt will return home with O2. Does the patient have an acute stroke diagnosis, or has the patient had a stroke during this admission? No Medication Adherence: I am convinced of the importance of my prescription medication: Agree completely - 0 I worry that my prescription medication will do more harm than good to me Disagree completely - 0 I feel financially burdened by my [id number] expenses for my prescription medication: Disagree completely - 0 Patient is categorized as low risk < 2 Are you interested in bedside delivery of your medications? No Food Concerns: In the Last Month, Have You had Trouble Getting Food? No trouble getting food During the Last Month, Have You Worried Whether Your Food Would Run Out Before You Had Enough Money to Buy More? No Is the Patient Psychosocially Complex? No ASSESSMENT AND PLAN: Medical Needs: None Psychosocial Needs: None FREEDOM OF CHOICE EXPLAINED: N/A POTENTIAL TRANSITION PLANS Durable Medical Equipment Home SW met with pt at bedside to introduce self and role. Pt lives with her and 3 children in a single home. Pt is independent in ADLs and denies any HHC currently. Pt uses inhalers and a nebulizer at home. Desat study done today, pt needs home O2. Pt requested referral to [facility]. Per MD, plan for pt to d/c home today when O2 is set up. Please call or page SW if any questions or concerns arise. SIGNATURE: STEPH Melendez PATIENT NAME: Yobany Londono DATE: March 24, 2018 TIME: 8:32 AM PAGER/CONTACT #: [phone] NURSING PROG Observed: 03/23/2018 Status: COMPLETED Source: [place] 2:29 PM [facility] REPOSITORY HNO ID: [id number] Author: Trisha Veloz (Rn), RN Service: Nursing Author Type: Registered Nurse Type: Nursing Progress Note Filed: 03/23/2018 2:33 PM Note Text: Nursing Progress Note Patient Name: Yobany Londono Patient Location: [place] [address]/H080-15 Daily Note: AANDOx3. VSS, titrated O2 per nursing communication; pt unable to stay above 88 on 1L, sattng 88-92 on 2L at rest in bed, Bridger COLLADO ([id number]). Pt denies pain. Safety precautions in place; bed in locked/lowest position, call light within reach. Will continue to monitor. This note was completed by: Trisha Veloz RN PROGRESS Observed: 03/23/2018 Status: COMPLETED Source: [place] 9:15 AM [facility] REPOSITORY HNO ID: [id number] Author: Gideon Oviedo (Rn Research) Service: Hospital Medicine Author Type: Nurse Practitioner Type: Progress Notes Filed: 03/23/2018 9:16 AM Note Text: SERVICE DATE: 03/23/2018 SERVICE TIME: 9:15 AM HOSPITAL MEDICINE PROGRESS NOTE NIGHT AND WEEKEND COVERAGE: Overnight (5:30PM --> 07:30AM) For patients on H80/H81/G80/G81 please page [phone] For patients on Any Other Floor please page [phone] SUBJECTIVE Interval HPI: Improved; breathing improved, on 1.5L o2 this am. Had very large O2 requirement with exertion yesterday. Wheezing improved, more air movement at the bases - suspect patient is opening up. Less anxious today as patient's son has been discharged home. OBJECTIVE BP 130/65 Pulse 71 Temp (Src) 98.1 (Oral) Resp 20 Ht 5' 1 (1.55m) Wt 298 lb (135.2kg) SpO2 96% LMP 02/22/2018 BMI 56.34 kg/(m2). Physical Exam Performed: GENERAL: morbid obesity, alert, no distress, cooperative, nontoxic, [place] face. SKIN: Skin color, texture, turgor normal. No rashes or lesions. EYES: EOMI OROPHARYNX: Lips, mucosa, and tongue normal.MMM NECK: noJVD, no carotid bruits,supple BACK: Back symmetric, Normal curvature, ROM normal, No CVAT. +humpback, Striae LUNGS: Lungs clear to auscultation.Non labored breathing,no accessory muscle use CARDIAC: normal S1 and S2; no rubs, murmurs, or gallops ABDOMEN: soft, non-tender,nondistended, BS normal. No organomegaly. EXTREMITIES: Extremities normal. No deformities, edema, clubbing or ulcers NEURO: Alert and Oriented X 3 PULSES: 2+ radial,+ dorsalis pedis Lines, Drains, and Airways Line Peripheral 03/21/18 2345 Short Left Forearm 22 Gauge 1 day Reviewed lines, drains, AND airways. Need to be continued PIV Medications: Reviewed Diagnostic tests reviewed: Most recent imaging Most recent labs CARE COORDINATION: Ms. Yobany Londono is a 37 F with morbid obesity, PMH of COPD/asthma, depression, arthritis, HTN, active smoker, fibromyalgia who presents with shortness of breath with wheezing x 2 days. Also complaints of cough with greenish expectoration, pleuritic chest pain, fever and chills. She has been using her inhaler approx 1/hour and she has increased her Symbicort usage from twice to three times daily. She had 3 ED visit in the last couple of months for similar ? ASSESSMENT AND PLAN Assessment AND Plan, Hosp Problems our Service Addressed Pulmonary Tobacco use disorder Assessment AND Plan Assessment: Current 10 cigarette/day smoker. Contemplative re: cessation. Open to patches. PLAN: Nicoderm patches Cessation resources at discharge. COPD exacerbation (HCC) Assessment AND Plan Assessment: Acute on chronic hypoxemic RF Likely 2/2 COPD exacerbation Requiring 4LPM O2 saturating at 91%; Needed 8L with exercise with desaturation study yesterday Received prednisone 60 mg in ED and albuterol treatment ? Plan ABG Continue duonebs Azithromycin x 3 days (QTc 464) Supplemental O2 down to 1.5 L Prednisone burst Outpatient Pulmonary follow up and spirometry pre and post bronchodilator Desaturation study prior to discharge - will need to repeat May also need sleep study for IVA/OHS and need for CPAP - appointment requested. Counseled about smoking cessation. Patient receptive but has tried multiple times in the past but failed. Lot of stressors at home Other Healthcare maintenance Assessment AND Plan VTE Prophylaxis: Heparin 5000 units Sub Q BID Disposition: Home Fibromyalgia Assessment AND Plan Assessment: Chronic, stable. PLAN: Continue tylenol Morbid obesity Assessment AND Plan Assessment: BMI 56, suspect IVA/obesity hypoventilation is contributing to her symptoms. PLAN: Follow up sleep study Encourage diet and lifestyle changes Medication and Non-Pharmacologic VTE Prophylaxis/Anticoagulants Anticoagulant AND Antiplatelet Medications Start Dose Route Frequency Ordered Stop 03/22/18 0900 heparin 5,000 Units injection (Medical At Risk ) 5,000 Units SUBCUTANEOUS EVERY 12 HOURS 03/22/18 0848 -- 03/22/18 0900 vte non-pharmacologic prophylaxis - none indicated ([place]) 03/22/18 0015 pneumatic compression stockings ([place]) VTE Prophylaxis: VTE prophylaxis appropriate Plan of care discussed with: Patient and RN SIGNATURE: Gideon Oviedo APRN.CNP PATIENT NAME: Yobany Londono DATE: March 23, 2018 TIME: 9:15 AM PAGER/CONTACT #: [phone] PROGRESS Observed: 03/22/2018 Status: COMPLETED Source: [place] 9:49 PM [facility] REPOSITORY O ID: [id number] Author: Armando Rowland (Rn), RN Service: (none) Author Type: Registered Nurse Type: Progress Notes Filed: 03/22/2018 9:49 PM Note Text: Nursing Progress Note Vital Gynecology Teacher Assessment Note Patient Name: Yobany Londono Patient Location: H080 015/H080-15 Patient Vitals in the past 4 hrs: 03/22/18 2112, BP:122/65, Temp:37.4 ?C (99.3 ?F), Temp src:Oral, Pulse:105, Resp:18, SpO2:93 % 03/22/18 1756, BP:118/77, Temp:36.8 ?C (98.2 ?F), Temp src:Oral, Pulse:98, Resp:20 Status Change Related to: Respiratory;Cardiac Issues (See Nursing Clinical Assessment For Details) The Following People Were Notified: Supply Chain Procurement Manager/Provider: GIM director of business applications See Documentation Related to: Additional Comments : will reassess vitals per protocol This note was completed by: Armando Rowland RN RAPID PCR FLU/RSV Collected: 03/22/2018 Status: F Source: [place] 8:20 PM [facility] REPOSITORY TYPE CODE TESTS RESULT OUT OF REFERENCE UNITS RANGE LAB FLRSRC Nasopharyngeal Specimen Swab Source LAB PCRFLA Negative for Influenza A Influenza A by RT PCR PCR LAB PCRFLB Negative for Influenza B Influenza B by RT PCR PCR LAB PCRRSV Negative for RSV RSV PCR by RT PCR Performed By: #### FLRSV #### [facility] [address] [place], [place] [address] PLAN OF CARE Observed: 03/22/2018 Status: COMPLETED Source: [place] 3:45 PM [facility] REPOSITORY HNO ID: [id number] Author: Gideon Oviedo (Ran) Service: Hospital Medicine Author Type: Nurse Practitioner Type: Plan of Care Filed: 03/22/2018 3:49 PM Note Text: DEPARTMENT OF HOSPITAL MEDICINE PLAN OF CARE NOTE SERVICE DATE: 03/22/2018 SERVICE TIME: 3:46 PM Hospital Medicine/Primary Attending: Gideon Oviedo APRN.RAN and Dr. Aldana NIGHT AND WEEKEND COVERAGE: Overnight (5:30PM --> 07:30AM) For patients on H80/H81/G80/G81 please page [phone] For patients on Any Other Floor please page [phone] Subjective INTERVAL HPI: No acute events since HANDP this AM, full progress note to follow tomorrow. Rest of plan per HANDP. Desat study likely too early, high O2 requirement, will continue to monitor inpatient and provide nebs/oral prednisone. Stop IV steroid. Arranged for update re: her admitted child on M40 in order to aleve some of her anxiety. Very teary throughout conversation. Nicoderm/gum offered for cessation. Sleep study appointment requested; suspect obesity hypoventilation MEDICATIONS: Reviewed Objective PHYSICAL EXAM: BP 132/85 Pulse 98 Temp (Src) 98 (Oral) Resp 18 Ht 5' 1 (1.55m) Wt 298 lb (135.2kg) SpO2 91% LMP 02/22/2018 BMI 56.34 kg/(m2). Lines, Drains, and Airways Line Peripheral 03/21/18 2345 Short Left Forearm 22 Gauge less than 1 day Disposition: TBD Plan of care discussed with: Patient and RN SIGNATURE: Gideon Oviedo APRN.CNP PATIENT NAME: Yobany Starkey Hol DATE: March 22, 2018 TIME: 3:46 PM PAGER/CONTACT #: [phone] etx [id number] ED NOTE Observed: 03/21/2018 Status: COMPLETED Source: [place] 11:40 PM [facility] REPOSITORY HNO ID: [id number] Author: Eliel Gamino (Ui Ux Developer), BEER BREWER Service: Emergency Medicine Author Type: Respiratory Therapist Type: ED Notes Filed: 03/22/2018 12:30 AM Note Text: Text paged report to BEER BREWER on H80. ED NOTE Observed: 03/21/2018 Status: COMPLETED Source: [place] 11:19 PM [facility] REPOSITORY HNO ID: [id number] Author: Marely Llanes (Ui Ux Developer), BEER BREWER Service: Emergency Medicine Author Type: Registered Resp Therapist Type: ED Notes Filed: 03/21/2018 11:20 PM Note Text: Report given BEER BREWER in H80 ED NOTE Observed: 03/21/2018 Status: COMPLETED Source: [place] 11:08 PM [facility] REPOSITORY HNO ID: [id number] Author: [place] Ferrer (Rn), RN Service: Emergency Medicine Author Type: Registered Nurse Type: ED Notes Filed: 03/21/2018 11:11 PM Note Text: Report called to TONY Horowitz. Pt will be transferred to [facility]15. HISTORY PHYSICAL Observed: 03/21/2018 Status: COMPLETED Source: [place] 10:46 PM [facility] REPOSITORY HNO ID: [id number] Author: Payton Polk Service: General Internal Medicine Author Type: Physician Type: HANDP Filed: 03/22/2018 12:27 AM Note Text: DEPARTMENT OF HOSPITAL MEDICINE HISTORY AND PHYSICAL EXAM PATIENT NAME: Yobany Londono SERVICE DATE: 03/21/2018 SERVICE TIME: 10:46 PM Primary Care Physician: Juany Holt NIGHT AND WEEKEND COVERAGE: Please call me at [phone] if you have any questions/ concerns until 730 am,. Thereafter please page the appropriate primary GIM team ASSESSMENT AND PLAN Active Problems: Acute on chronic hypoxemic RF Likely 2/2 COPD vs asthma exacerbation Requiring 4LPM O2 saturating at 91% Received prednisone 60 mg in ED and albuterol treatment Plan ABG Scheduled duoneb Q4h Azithromycin x 3 days (QTc 464) Supplemental O2 methylprednisone 40 Q12 followed by oral steroid taper Outpatient Pulmonary follow up and spirometry pre and post bronchodilator Desaturation study prior to discharge May also need sleep study for IVA/OHS and need for CPAP Counseled about smoking cessation. Tried multiple times in the past but failed. Lot of stressors at home Depression Not suicidal or homicidal But was crying all the time during the conversation. Overwhelmed with home condition, taking care of kids.youngest one has some congenital heart condition. Requested to leave latest by Saturday night/ Saturday morning. Wants to take children for doctor's appointment. SUBJECTIVE CHIEF COMPLAINT: shortness of breath, wheezing. HPI: Ms. Yobany Londono is a 37 F with morbid obesity, PMH of COPD/asthma, depression, arthritis, HTN, active smoker, fibromyalgia who presents with shortness of breath with wheezing x 2 days. Also complaints of cough with greenish expectoration, pleuritic chest pain, fever and chills. She has been using her inhaler approx 1/hour and she has increased her Symbicort usage from twice to three times daily. She had 3 ED visit in the last couple of months for similar ? 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 - ORAL SURGERY PROCEDURE teeth removed - PAST SURGICAL HISTORY OF TM tubes - REMOVAL OF TONSILS,<12 Y/O Tonsillectomy - TUBAL LIGATION FAMILY HISTORY: FAMILY HISTORY Problem Relation Age of Onset - Adopted: Yes - Diabetes Father - Hypertension Mother - Cancer Mother liver cancer - osteoarthritis [OTHER] Mother - Heart Maternal Grandmother - Cancer Maternal Grandmother - Diabetes Paternal Grandfather - Prostate Cancer Paternal Grandfather - Stroke Paternal Grandmother - Heart Sister hole in heart - Breast Cancer Sister - Alcohol/Drug Sister - osteochondroma [OTHER] Son - osteochondroma [OTHER] Son SOCIAL HISTORY: Social History Substance Use Topics - Smoking status: Current Every Day Smoker Packs/day: 0.50 Years: 15.00 Types: Cigarettes - Smokeless tobacco: Never Used Comment: Trying to quit - Alcohol use No Comment: rare wine cooler- not while MEDICATIONS: Reviewed (Not in a hospital admission) Prior to Admission Medications Prescriptions Last Dose Informant Patient Reported? Taking? B Complex Vitamins capsule No No Sig: TAKE ONE CAPSULE BY MOUTH EVERY DAY acetaminophen (TYLENOL) 500 mg tablet Yes No Sig: EVERY 6 HOURS NEEDED albuterol (PROVENTIL) 2.5 mg /3 mL (0.083 %) nebulizer solution No No Sig: inhale the contents of 1 vial via nebulizer four times daily over 5-15 minutes albuterol (PROVENTIL) 2.5 mg /3 mL (0.083 %) nebulizer solution No No Sig: Use 3 mL via nebulizer one time only for 1 dose. Use over 5-15minutes. albuterol HFA (VENTOLIN HFA) 90 mcg/actuation inhaler No No Sig: Inhale 2 Puffs as instructed every 6 hours as needed for Wheezing/Shortness of Breath. budesonide-formoterol (SYMBICORT) 160-4.5 mcg/actuation inhaler No No Sig: Inhale 2 Puffs as instructed twice daily. citalopram (CELEXA) 40 mg tablet No No Sig: Take 1 tablet by mouth once daily. cyclobenzaprine (FLEXERIL) 10 mg tablet No No Sig: Take 1 tablet by mouth every 8 hours as needed. fluticasone (FLONASE) 50 mcg/actuation nasal spray No No Sig: Use 2 Sprays in each nostril once daily. Rinse mouth after use. ibuprofen (MOTRIN) 600 mg tablet No No Sig: Take 1 tablet by mouth every 6 hours as needed for Pain. lidocaine (LIDODERM) 5 % No No Sig: Apply 1 Patch as directed every 24 hours. loratadine (CLARITIN) 10 mg tablet No No Sig: Take 1 tablet by mouth once daily as needed. FOR ALLERGY SYMPTOMS meloxicam (MOBIC) 15 mg tablet No No Sig: TAKE ONE TABLET BY MOUTH ONCE DAILY WITH FOOD multivitamin tablet No No Sig: Take 1 tablet by mouth once daily. omeprazole (PRILOSEC) 20 mg capsule No No Sig: Take 1 capsule by mouth daily before breakfast. 1/2 hr before meal. ondansetron (ZOFRAN) 4 mg tablet No No Sig: Take 1 tablet by mouth every 12 hours as needed for Nausea/Vomiting. vitamin b complex (B COMPLETE) tab No No Sig: Take 1 tablet by mouth once daily. Facility-Administered Medications: None ALLERGIES: ALLERGIES Allergen Reactions - Seasonal Allergies Intolerance - Penicillins Rash, Vomiting JUST SENSITIVITY TO PCN PER DR FAJARDO REVIEW OF SYSTEM: PAIN ASSESSMENT: Negative for pain, history of chronic pain, or current treatment for a chronic pain condition GENERAL: No weight loss, malaise or fevers. HEENT: Negative for frequent or significant headaches, No changes in hearing or vision, no nose bleeds or other nasal problems NECK: Negative for lumps, goiter, pain and significant neck swelling RESPIRATORY: see HPI CARDIOVASCULAR: Negative for chest pain, leg swelling or palpitations. GI: Negative for abdominal discomfort, blood in stools or black stools or change in bowel habits MUSCULOSKELETAL: Negative for joint pain or swelling, back pain or muscle pain. SKIN: Negative for lesions, rash, and itching. HEMATOLOGY/LYMPHOLOGY: Negative for prolonged bleeding, bruising easily or swollen nodes. ENDOCRINE: Negative for cold or heat intolerance, polyuria, polydipsia and goiter. NEURO: No history of headaches, syncope, paralysis, seizures or tremors All other reviewed and negative other than HPI. OBJECTIVE PHYSICAL EXAM: BP 130/87 Pulse 100 Temp (Src) 97.9 (Oral) Resp 18 SpO2 91% LMP 02/22/2018 GENERAL: morbid obesity , alert, no distress, cooperative,nontoxic SKIN: Skin color, texture, turgor normal. No rashes or lesions. EYES: PERRLA and EOMI OROPHARYNX: Lips, mucosa, and tongue normal.MMM NECK: noJVD, no carotid bruits,supple BACK: Back symmetric, Normal curvature, ROM normal, No CVAT. LUNGS: Lungs clear to auscultation.Non labored breathing,no accessory muscle use CARDIAC: normal S1 and S2; no rubs, murmurs, or gallops ABDOMEN: soft, non-tender,nondistended, BS normal. No organomegaly. EXTREMITIES: Extremities normal. No deformities, edema, clubbing or ulcers NEURO: Alert and Oriented X 3,Able to maintain attention,Language intact PULSES: 2+ radial, 2+ posterial tibial, 2+ dorsalis pedis, 2+ carotid DATA: Diagnostic tests reviewed for today's visit: Most recent labs CBC: Recent Labs 03/21/181952 WBC 16.38* RBC 4.93 HB 13.2 HCT 45.8 PLT 287 MCV 92.9 MCH 26.8 MPV 10.8 Coags: No results for input(s): INR, APTT in the last 24 hours. Invalid input(s): PT CMP: Recent Labs 03/21/181952 NA 139 K 3.8 CHLOR 97 CO2 34* BUN 12 CREAT 0.63 GLUC 106* CA 8.9 ANION 8* Cardiac Enzymes: No results for input(s): CK, MB, CKMB, TROPT in the last 24 hours. Most recent imaging CXR RESULTS: Lines, Tubes, and Devices: ?None ? Lungs and Pleura: ?The lungs are clear. No pleural effusion or pneumothorax. ? Cardiomediastinal silhouette: ?AP technique accentuates the cardiac silhouette. ? Other: ?The bones of the chest are unremarkable. ? PFT 01/24/12 Study was performed on 01/24/12. The study demonstrates a moderately severe obstructive defect with hyperinflation, and mild diffusion impairment that when corrected for alveolar ventilation is within normal limits. There is only a slight bronchodilator response. This is consistent with a moderately severe degree of chronic bronchitis with a bronchospastic component or chronic bronchial asthma. ? Most recent EKG Sinus tachycardia VTE Prophylaxis: Pneumatic Compression Device Disposition: Home Plan of care discussed with: Patient, Emergen[place] Room Physician and RN I have discussed the plan of care with patient and family and all questions/concerns were answered and addressed. Payton Polk Pager : [phone] March 21, 2018 10:46 PM ED NOTE Observed: 03/21/2018 Status: COMPLETED Source: [place] 10:08 PM [facility] REPOSITORY HNO ID: [id number] Author: Andrew Ferrer (Rn), RN Service: Emergency Medicine Author Type: Registered Nurse Type: ED Notes Filed: 03/21/2018 11:08 PM Note Text: Dr. Guerra at bedside. ED NOTE Observed: 03/21/2018 Status: COMPLETED Source: [place] 9:34 PM [facility] REPOSITORY HNO ID: [id number] Author: Andrew Ferrer (Rn), RN Service: Emergency Medicine Author Type: Registered Nurse Type: ED Notes Filed: 03/21/2018 9:34 PM Note Text: SW Consult at bedside. ED NOTE Observed: 03/21/2018 Status: COMPLETED Source: [place] 8:38 PM [facility] REPOSITORY HNO ID: [id number] Author: Andrew Ferrer (Rn), RN Service: Emergency Medicine Author Type: Registered Nurse Type: ED Notes Filed: 03/21/2018 8:38 PM Note Text: Safety check completed. Patient resting comfortably in bed; denies needs at this time. NAD noted, ABC's intact. No changes from previous assessment. Bed low AND locked, side rails up x2, call light in reach. Will continue to monitor patient and await further orders. ED NOTE Observed: 03/21/2018 Status: COMPLETED Source: [place] 7:58 PM [facility] REPOSITORY HNO ID: [id number] Author: Monty Greenberg (Medic) Service: Emergency Medicine Author Type: Stockroom Coordinator and Household Personal Assistant Type: ED Notes Filed: 03/21/2018 7:58 PM Note Text: Labs were drawn and sent. BASIC METABOLIC PANL Collected: 03/21/2018 Status: F Source: [place] 7:53 PM [facility] REPOSITORY TYPE CODE TESTS RESULT OUT OF REFERENCE UNITS RANGE LAB GLU 74-99 mg/dL High Glucose 106 Result Comment: The [place] [employer] (ADA) provides guidance for cutoff values for fasting glucose and random glucose. The ADA defines fasting as no caloric intake for at least 8 hours. Fas ting plasma glucose results between 100 to 125 mg/dL indicate increased risk for diabetes (prediabetes). Fasting plasma glucose results greater than or equal to 126 mg/dL meet the criteria for diagnosis of diabetes. In the absence of unequivocal hyperglycemia, results should be confirmed by repeat testing. In a patient with classic symptoms of hyperglycemia or hyperglycemic crisis, random plasma glucose results greater than or equal to 200 mg/dL meet the criteria for diagnosis of diabetes. Reference: Standards of Medical Care in Diabetes 2016, [place] [employer]. Diabetes Care. 2016.39(Suppl 1). LAB BUN 7-21 mg/dL BUN 12 LAB CRET 0.58-0.96 mg/dL Creatinine 0.63 LAB NA 136-144 mmol/L Sodium 139 LAB K 3.7-5.1 mmol/L Potassium 3.8 LAB CL 97-105 mmol/L Chloride 97 LAB CO2 22-30 mmol/L CO2 High 34 LAB AGAP 9-18 mmol/L Low Anion Gap 8 LAB CA 8.5-10.2 mg/dL Calcium, Total 8.9 LAB GFRAA eGFR- Amer. >60 LAB GFRNAA . eGFR-All Other Races >60 Result Comment: eGFR (Estimated GFR) Units of measure: mL/min/1.73 meters squared eGFR is derived from the reexpressed MDRD Study equation using the following parameters: serum creatinine, age, gender and race. The creatinine assay has been calibrated to be traceable to IDMS. An eGFR <60 mL/min/1.73m2 for >3 months is consistent with chronic kidney disease. Refer to KDOQI guidelines for clinical interpretation. In patients with unstable renal function, e.g. those with acute kidney injury, the eGFR may not accurately reflect actual GFR. Performed By: #### BMP, CBCDIF #### [facility] [address] [place] [id number] CBC AND DIFFERENTIAL Collected: 03/21/2018 Status: F Source: [place] 7:53 PM [facility] REPOSITORY TYPE CODE TESTS RESULT OUT OF REFERENCE UNITS RANGE LAB WBC 3.70-11.00 k/uL WBC High 16.38 LAB RBC 3.90-5.20 m/uL RBC 4.93 LAB HGB 11.5-15.5 g/dL Hemoglobin 13.2 LAB HCT 36.0-46.0 % Hematocrit 45.8 LAB MCV 80.0-100.0 fL MCV 92.9 LAB MCH 26.0-34.0 pG MCH 26.8 LAB MCHC 30.5-36.0 g/dL MCHC Low 28.8 LAB RDWCV 11.5-15.0 % RDW-CV High 15.9 LAB PLTCT 150-400 k/uL Platelet Count 287 LAB MPV 9.0-12.7 fL MPV 10.8 LAB ANEUT % Neut% 84.5 LAB AANEUT 1.45-7.50 k/uL Abs Neut High 13.84 LAB ALYMP % Lymph% 11.2 LAB AALYMP 1.00-4.00 k/uL Abs Lymph 1.83 LAB AMONO % Calloway% 3.4 LAB AAMONO <0.87 k/uL Abs Calloway 0.56 LAB AEOS % Eosin% 0.0 LAB AAEOS <0.46 k/uL Abs Eosin 0.00 LAB ABASO % Baso% 0.0 LAB AABASO <0.11 k/uL Abs Baso 0.00 LAB AMYELO % Myelo% 0.9 LAB ANIIMI Anisocytosis Present LAB LFTIMI Left Shift Present LAB POLIMI Polychromasia Slight LAB PLTEST Platelet Estimate Platelet estimate adequate LAB DTYP DTYPE Manual Diff Performed By: #### BMP, CBCDIF #### [facility] [address] [id number] ED NOTE Observed: 03/21/2018 Status: COMPLETED Source: [place] 7:29 PM [facility] REPOSITORY HNO ID: [id number] Author: Andrew Ferrer (Rn), RN Service: Emergency Medicine Author Type: Registered Nurse Type: ED Notes Filed: 03/21/2018 7:30 PM Note Text: Assumed care of patient. Report from TONY Machado. Patient presents to ER for SOB x2 days. Pt states h/o COPD, states no home O2 use ate this time. Patient is alert and oriented X 3. NAD, ABC's intact, respirations even and unlabored, VALVERDE. Skin acyanotic, warm and dry. Oriented to room and call light placed in reach. Side rails up x2, bed low AND locked, safety measures initiated. Plan of Care for patient: -Monitor vital signs -Monitor pain level -Monitor patient's status for acute changes and notify LIP as needed -Maintain patient safety and comfort -Maintain bed low and locked, with call light within reach -Await further orders and disposition ED NOTE Observed: 03/21/2018 Status: COMPLETED Source: [place] 5:49 PM [facility] REPOSITORY HNO ID: [id number] Author: Keren Roach (Rn), RN Service: Emergency Medicine Author Type: Registered Nurse Type: ED Notes Filed: 03/21/2018 5:52 PM Note Text: - Nursing Plan of Care initiated- -- Care Assumed -- Acknowledged patient /family -- Initiated monitoring -- Monitor vital signs -- Continue to monitor for safety and comfort -- Bed rails x 2 low and locked in place -- Call caal in reach -- Education given on complaint specific Plan of Care: *Labs *Imaging * Medications * Length of stay Patient c/o Pt to ED c/o SOB/suspected COPD exacerbation x 2 days. Reports low SpO2 at home and seen at OSH yesterday they refused to admit me. SpO2 82% on RA; placed on 3L O2 NC, SpO2 corrected to 93-94%. ABC's intact, breath sounds equal and with wheezes bilaterally , RR even and labored, abdomen is round soft and non-tender, VALVERDE's x 4 and follows commands. ED PROV NOTE Observed: 03/21/2018 Status: COMPLETED Source: [place] 5:19 PM [facility] REPOSITORY HNO ID: [id number] Author: Adarsh Guerra), MD Service: Emergency Medicine Author Type: Physician Type: ED Provider Notes Filed: 03/22/2018 9:48 PM Note Text: ED Provider Note Patient Name: Yobany Londono SERVICE DATE: 03/21/18 History Patient presents with: Shortness of Breath Ms. Yobany Londono is a 37 yo F with PMH of COPD, depression, obesity, arthritis, HTN, and fibromyalgia who presents with shortness of breath x 2 days. Patient states she has been experiencing worsening SOB with exertion for the past 2 days. She has been using her inhaler approx 1/hour and she has increased her Symbicort usage from twice to three times daily. She endorses cough productive of thick green sputum, subjective fever and chills, and chest pain with deep inspiration. Patient was seen in ED last night for same complaint, given 4 breathing treatments and 60 mg prednisone with improvement in her symptoms and was discharged. 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 - ORAL SURGERY PROCEDURE teeth removed - PAST SURGICAL HISTORY OF TM tubes - REMOVAL OF TONSILS,<12 Y/O Tonsillectomy - TUBAL LIGATION FAMILY HISTORY Problem Relation Age of Onset - Adopted: Yes - Diabetes Father - Hypertension Mother - Cancer Mother liver cancer - osteoarthritis [OTHER] Mother - Heart Maternal Grandmother - Cancer Maternal Grandmother - Diabetes Paternal Grandfather - Prostate Cancer Paternal Grandfather - Stroke Paternal Grandmother - Heart Sister hole in heart - Breast Cancer Sister - Alcohol/Drug Sister - osteochondroma [OTHER] Son - osteochondroma [OTHER] Son Social History Social History Main Topics - Smoking status: Current Every Day Smoker Packs/day: 0.50 Years: 15.00 Types: Cigarettes - Smokeless tobacco: Never Used Comment: Trying to quit - Alcohol use No Comment: rare wine cooler- not while - Drug use: No - Sexual activity: Yes Partners: Male control/ protection: None ALLERGIES Allergen Reactions - Seasonal Allergies Intolerance - Penicillins Rash, Vomiting JUST SENSITIVITY TO PCN PER DR FAJARDO Review of Systems Constitutional: Positive for chills and fever. HENT: Negative for rhinorrhea and sore throat. Eyes: Negative for visual disturbance. Respiratory: Positive for cough and shortness of breath. Cardiovascular: Positive for chest pain. Negative for leg swelling. Gastrointestinal: Negative for abdominal pain, constipation, diarrhea, nausea and vomiting. Genitourinary: Negative for dysuria, frequency, hematuria and urgency. Musculoskeletal: Negative for arthralgias and myalgias. Skin: Negative for rash. Neurological: Positive for light-headedness. Negative for dizziness, seizures and syncope. Physical Exam LMP 02/22/2018 Physical Exam Constitutional: She is oriented to person, place, and time. She appears well-developed and well-nourished. No distress. HENT: Head: Normocephalic and atraumatic. Mouth/Throat: Oropharynx is clear and moist. Eyes: EOM are normal. Pupils are equal, round, and reactive to light. No scleral icterus. Cardiovascular: Regular rhythm and normal heart sounds. Exam reveals no gallop and no friction rub. No murmur heard. Tachycardic Pulmonary/Chest: Effort normal. She has wheezes. She has no rales. Breathing comfortably and talking in full sentences on 4L NC. Abdominal: Soft. There is no tenderness. There is no rebound and no guarding. Musculoskeletal: She exhibits no edema or deformity. Lymphadenopathy: She has no cervical adenopathy. Neurological: She is alert and oriented to person, place, and time. Skin: Skin is warm and dry. Capillary refill takes less than 2 seconds. Psychiatric: She has a normal mood and affect. Vitals reviewed. Diagnostic Testing ED Labs Ordered and Reviewed BASIC METABOLIC PNL - Abnormal; Notable for the following: Result Value Ref Range Glucose 106 (*) 74 - 99 mg/dL CO2 34 (*) 22 - 30 mmol/L Anion Gap 8 (*) 9 - 18 mmol/L All other components within normal limits CBC + DIFF - Abnormal; Notable for the following: WBC 16.38 (*) 3.70 - 11.00 k/uL MCHC 28.8 (*) 30.5 - 36.0 g/dL RDW-CV 15.9 (*) 11.5 - 15.0 % All other components within normal limits CXR - no acute abnormality Procedures Medical Decision Making 37 yo F with PMH of COPD who presents to the ED with SOB, productive cough, and subjective fever x 2 days. Tachycardic but otherwise VSS in ED. Patient in no distress. Patient given albuterol and atrovent nebulizer x 3, 60 mg prednisone, and 500 mg azithromycin. Upon reevaluation patient continues to desat into 80s when decreased to RA. Plan to admit to regular nursing floor. Prior to admission, the patient threatening to leave AMA. Patient here with 20 month old son and had no one to lease picker child. Offered to socially admit child. Mother refusing all care. Could not allow patient to drive child home while saturating in low 80s without oxygen. Social work and police called. Patient eventually agreed to be admitted. Plan to admit child to Peds - medicine and mother to medicine. ED Medication Administration from 03/21/2018 1654 to 03/22/2018 0001 Date/Time Order Dose Route Action 03/21/2018 182 predniSONE 60 mg tab(s) (DELTASONE) 60 mg ORAL Given 03/21/2018 182 azithromycin 500 mg tab(s) (ZITHROMAX) 500 mg ORAL Given 03/21/2018 181 ipratropium 0.02 % 1.5 mg (ATROVENT) 1.5 mg INHALATION New Bag 03/21/2018 181 albuterol 2.5 mg/0.5 mL 15 mg nebulizer solution (PROVENTIL) 15 mg INHALATION New Bag 03/21/2018 192 albuterol 2.5 mg/0.5 mL 15 mg nebulizer solution (PROVENTIL) 0 mg INHALATION Stopped MDM ED Course / Clinical Impression Clinical Impressions as of Mar 21 2252 COPD exacerbation (HCC) Hypoxia Plan The Patient was ADMITTED to Regular Nursing Floor Condition at time of disposition: stable SIGNATURE: MD Marisabel Brothers Shari (Barbie)MD Resident 03/21/18 046 Attending Note I evaluated the patient and personally participated in the thao components. I agree with the resident's findings and plan as documented and have discussed the case and management of the patient's care with the resident. Ms Rogers presents to the ED with SOB and hypoxia. She has a hx of COPD and is obese. She is noted to be markedly hypoxic (desaturating to the upper 70's when speaking). Wheeze is noted, and she is treated for COPD exacerbation. In light of her size, obesity related hypoventilation is also likely. CXR from ED visit yesterday was reviewed. PT was treated with steroids and breathing treatments with improvement of wheeze, but hypoxia persists. Admission is planned, but ptt desires to leave AMA and has capacity to do so. However, she intends to drive with her infant to her home. I believe her degree of hypoxia impairs her ability to drive safely. SW was consulted and they were unable to arrange for a safe ride home for either her or her child. Therefore, I will not allow pt to drive with child at this time. Child will be admitted for social reasons, and ultimately pt agreed to admission. Signature: ADARSH GUERRA MD Date: 03/22/2018 Time: 9:36 PM Adarsh Guerra Md, MD 03/22/18 2813 EKG1 Observed: 03/21/2018 Status: F Source: [place] 5:14 PM [facility] REPOSITORY NAME : YOBANY LONDONO PID : [id number] : 1980 Gender : Female Race : ORD : Procedure Date : Mar 21 2018 17:14:08 Edit Date : 2018 12:49:39 Diagnosis:SINUS TACHYCARDIA NONSPECIFIC ST ABNORMALITY ABNORMAL ECG NOTE: PLEASE SEE PHYSICIAN'S NOTE FROM E.D. VISIT Confirmed by OVERREAD REPORT, NOT AN (1), news assignment editor NAVI CARIAS ([id number]) on 2018 12:49:31 PM Ventricular Rate : 107 BPM Atrial Rate : 107 BPM P-R Interval : 148 ms QRS Duration : 98 ms Q-T Interval : 348 ms QTC Calculation(Bezet) : 464 ms P [place] : 66 degrees R [place] : 67 degrees T [place] : 60 degrees Test Reason : Location : 2 : EDNS Overread By : OVERREAD REPORT,NOT AN Edited By : NAVI CARIAS Referred By : , Acquired by : DD, ED NOTE Observed: 03/21/2018 Status: COMPLETED Source: [place] 5:11 PM [facility] REPOSITORY HNO ID: [id number] Author: Clau Calle (Rn), RN Service: (none) Author Type: Registered Nurse Type: ED Notes Filed: 03/21/2018 5:12 PM Note Text: Pt to ED c/o SOB/suspected COPD exacerbation x 2 days. Reports low SpO2 at home and seen at OSH yesterday they refused to admit me. SpO2 82% on RA; placed on 3L O2 NC, SpO2 corrected to 93-94%. AANDO, NAD, ABC's intact, MAEx4. ED NOTE Observed: 03/21/2018 Status: COMPLETED Source: [place] 1:44 AM [facility] REPOSITORY HNO ID: [id number] Author: Nikkie Guajardo (Rn), RN Service: Emergency Medicine Author Type: Registered Nurse Type: ED Notes Filed: 03/21/2018 1:47 PM Note Text: NO ANSWER ON PATIENTS PHONE ED NOTE Observed: 03/21/2018 Status: COMPLETED Source: [place] 1:42 AM [facility] REPOSITORY HNO ID: [id number] Author: Kerri Fisher (Rn), RN Service: Emergency Medicine Author Type: Registered Nurse Type: ED Notes Filed: 03/21/2018 1:43 AM Note Text: Dc instr to fu w pmd, return prn, continue home meds. Pt cont to c/o weakness, does not appear to be in distress. Pt and father agreeable to plan. Pt ambulates from ED. ED NOTE Observed: 03/21/2018 Status: COMPLETED Source: [place] 1:35 AM [facility] REPOSITORY HNO ID: [id number] Author: Kerri Fisher (Rn), RN Service: Emergency Medicine Author Type: Registered Nurse Type: ED Notes Filed: 03/21/2018 1:44 AM Note Text: Dr Corado advised pt's O2 sats remain 88-90%. Confirmed discharge order. ED PROV NOTE Observed: 03/21/2018 Status: COMPLETED Source: [place] 12:29 AM [facility] REPOSITORY HNO ID: [id number] Author: Nadeen Corado DO Service: Emergency Medicine Author Type: Physician Type: ED Provider Notes Filed: 03/21/2018 12:36 AM Note Text: ED Provider Note Patient Name: Yobany Londono SERVICE DATE: 03/20/18 History Patient presents with: Shortness of Breath 37 y/o morbidly obese female with COPD presents with SOB beginning just prior to arrival. She reports her baseline SpO2 is around 91%. Denies being on home oxygen. She has a nebulizer at home. Denies CP. Denies fever. Pt is seen at this ED frequently for similar presentations. History provided by: Parent and patient PAST MEDICAL HISTORY Diagnosis Date - Arthritis - Back pain since epidural 2001 - Chronic obstructive pulmonary disease (COPD) (HCC) - Depression with anxiety - Fibromyalgia shoulders - Hypertension diet controlled - Morbid obesity (HCC) - Osteochondroma, 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 - ORAL SURGERY PROCEDURE teeth removed - PAST SURGICAL HISTORY OF TM tubes - REMOVAL OF TONSILS,<12 Y/O Tonsillectomy - TUBAL LIGATION FAMILY HISTORY Problem Relation Age of Onset - Adopted: Yes - Diabetes Father - Hypertension Mother - Cancer Mother liver cancer - osteoarthritis [OTHER] Mother - Heart Maternal Grandmother - Cancer Maternal Grandmother - Diabetes Paternal Grandfather - Prostate Cancer Paternal Grandfather - Stroke Paternal Grandmother - Heart Sister hole in heart - Breast Cancer Sister - Alcohol/Drug Sister - osteochondroma [OTHER] Son - osteochondroma [OTHER] Son Social History Social History Main Topics - Smoking status: Current Every Day Smoker Packs/day: 0.50 Years: 15.00 Types: Cigarettes - Smokeless tobacco: Never Used Comment: Trying to quit - Alcohol use No Comment: rare wine cooler- not while - Drug use: No - Sexual activity: Yes Partners: Male control/ protection: None ALLERGIES Allergen Reactions - Seasonal Allergies Intolerance - Penicillins Rash, Vomiting JUST SENSITIVITY TO PCN PER DR FAJARDO Review of Systems Constitutional: Negative for fever. HENT: Negative for facial swelling and sore throat. Eyes: Negative for visual disturbance. Respiratory: Positive for shortness of breath and wheezing. Negative for cough and stridor. Cardiovascular: Negative for chest pain. Gastrointestinal: Negative for abdominal pain and vomiting. Genitourinary: Negative for dysuria and frequency. Musculoskeletal: Negative for arthralgias and back pain. Skin: Negative for color change. Neurological: Negative for dizziness and numbness. All other systems reviewed and are negative. Physical Exam BP 127/71 Pulse 108 Temp (Src) 98.7 (Temporal Artery) Resp 22 Ht 5' 1 (1.55m) Wt 298 lb (135.2kg) SpO2 91% LMP 02/22/2018 BMI 56.34 kg/(m2). Physical Exam Constitutional: She is oriented to person, place, and time. She appears well-developed and well-nourished. HENT: Head: Normocephalic and atraumatic. Mouth/Throat: Oropharynx is clear and moist. Eyes: Pupils are equal, round, and reactive to light. Neck: Normal range of motion. Cardiovascular: Normal rate and regular rhythm. No murmur heard. Pulmonary/Chest: Effort normal. No respiratory distress. She has wheezes. She exhibits no tenderness. Diminished breath sounds at bases. Exp wheeze. Abdominal: Soft. Bowel sounds are normal. She exhibits no distension. There is no tenderness. There is no guarding. Musculoskeletal: Normal range of motion. She exhibits no tenderness. Neurological: She is alert and oriented to person, place, and time. Skin: Skin is warm and dry. No rash noted. Psychiatric: She has a normal mood and affect. Her behavior is normal. Nursing note and vitals reviewed. Diagnostic Testing ED Labs Ordered and Reviewed - No data to display Procedures Medical Decision Making MDM CXR negative. Pt received 4 breathing treatments with improvement of symptoms. Pt given 60 mg PO prednisone. Pt instructed to return to ED if symptoms worsen and to follow up with PCP. ED Course / Clinical Impression Clinical Impressions as of Mar 21 36 COPD exacerbation (HCC) Plan The Patient was DISCHARGED: Counseled patient regarding radiology results AND need for follow-up. Discharged home with verbal and written instructions. They were instructed to return as needed for persistent or worsening symptoms or any new concerns. Condition at time of disposition: stable SIGNATURE: DO Mak Beaver Rami Azzam, DO 03/21/1835 CHEST 1 VIEW Observed: 03/21/2018 Status: F Source: [facility] 12:16 AM [facility] REPOS[facility] Performed at [facility] APPROVED BY: TABITHA MARIA MD CHEST RADIOGRAPH: AP view of the chest. Exam Date/Time: 03/21/2018 12:16 AM Indication: Cough Comparison: Chest x-ray 02/23/2018 RESULTS: Lines, Tubes, and Devices: None Lungs and Pleura: The lungs are clear. No pleural effusion or pneumothorax. Cardiomediastinal silhouette: AP technique accentuates the cardiac silhouette. Other: The bones of the chest are unremarkable. IMPRESSION: No radiographic evidence of acute cardiopulmonary abnormality. ED NOTE Observed: 03/20/2018 Status: COMPLETED Source: [place] 11:52 PM [facility] REPOSITORY HNO ID: [id number] Author: Cece Johnson (Rn), RN Service: Emergency Medicine Author Type: Registered Nurse Type: ED Notes Filed: 03/20/2018 11:52 PM Note Text: Patient informed: the name of medication, why we are giving it, possible side effects, what they may expect to feel, and was offered a chance to ask questions, prior to the administration of prednisone. ED NOTE Observed: 03/20/2018 Status: COMPLETED Source: [place] 11:35 PM [facility] REPOSITORY HNO ID: [id number] Author: Kerri FisherRn), RN Service: Emergency Medicine Author Type: Registered Nurse Type: ED Notes Filed: 03/20/2018 11:36 PM Note Text: c/o dyspnea, wheezing x 48 hours. sts using nebulizer and inhaler without improvement. Audible wheezing on arrival. Pt does speak long continuous sentences with minimal hesitation. ED NOTE Observed: 03/12/2018 Status: COMPLETED Source: [place] 1:46 AM [facility] REPOSITORY HNO ID: [id number] Author: Rosio MercadoRn) TONY Joya Service: Emergency Medicine Author Type: Registered Nurse Type: ED Notes Filed: 03/13/2018 10:35 AM Note Text: Patient Call Back Information ? How are you doing ? better ? Did we appropriately manage your pain? Yes ? Did you understand your discharge instructions? Yes ? Did you get your prescriptions filled? Yes ? Were you able to make a follow-up appointment with your physician? No ? Were you comfortable during your stay here? Yes ? Did a member of the ER nursing team round on you during your visit? Yes ? You will receive a patient satisfaction survey in the mail in the nest 2 weeks, please take the time to fill out the survey as your input from your ER visit is very important to us. Yes ? Can we do anything else to help you? No ED NOTE Observed: 03/12/2018 Status: COMPLETED Source: [place] 1:43 AM [facility] REPOSITORY HNO ID: [id number] Author: Kerri MercadoRn) TONY Fisher Service: Emergency Medicine Author Type: Registered Nurse Type: ED Notes Filed: 03/12/2018 1:45 AM Note Text: Pt reports abd pain is almost gone at this time, sts she is much better and wants to go home and go to bed. Dc instr to fu w pmd, return prn. Pt is AANDO, wdp, resps unlabored, speaks complete sentences without difficulty or hesitation. Relaxed expression and posture. Agreeable to plan. Ambulates from ED with steady upright gait. ED NOTE Observed: 03/12/2018 Status: COMPLETED Source: [place] 1:30 AM [facility] REPOSITORY HNO ID: [id number] Author: Kerri MercadoRn) TONY Fisher Service: Emergency Medicine Author Type: Registered Nurse Type: ED Notes Filed: 03/12/2018 1:31 AM Note Text: Pt sts took zofran at home prior to arrival and denies nausea at this time. sts has 3 or 4 zofran left from previous rx. Denies need for any at this time. ED NOTE Observed: 03/12/2018 Status: COMPLETED Source: [place] 1:28 AM [facility] REPOSITORY HNO ID: [id number] Author: Kerri MercadoRn) TONY Fisher Service: Emergency Medicine Author Type: Registered Nurse Type: ED Notes Filed: 03/12/2018 1:28 AM Note Text: ED NOTE Observed: 03/12/2018 Status: COMPLETED Source: [place] 1:27 AM [facility] REPOSITORY HNO ID: [id number] Author: Kerri MercadoRn) TONY Fisher Service: Emergency Medicine Author Type: Registered Nurse Type: ED Notes Filed: 03/12/2018 1:37 AM Note Text: Dr Mckeon advised current SPO2 91-92% on room air, HR 76. Pt denies chest pain, denies dyspnea worse than her baseline (pt sts is always somewhat short of breath but has not taken a breathing treatment at home since yesterday evening because she has not felt like she needs one.) Pt was offered breathing treatment here, but refuses, stating that she has inhalers to take if she needs them. When asked if she has any chest pain, pt sts she does still have some discomfort in her ribs in the left breast area which she was seen for at [facility] yesterday but sts the area is tender to touch, but it does not hurt to take a deep breath or cough. NFO from physician, pt to be discharged home. ED NOTE Observed: 03/12/2018 Status: COMPLETED Source: [place] 1:23 AM [facility] REPOSITORY HNO ID: [id number] Author: Kerri Barboza) TONY Fisher Service: Emergency Medicine Author Type: Registered Nurse Type: ED Notes Filed: 03/13/2018 7:31 PM Note Text: Patient informed: the name of medication, why we are giving it, possible side effects, what they may expect to feel, and was offered a chance to ask questions, prior to the administration of bentyl ED PROV NOTE Observed: 03/12/2018 Status: COMPLETED Source: [place] 1:12 AM [facility] REPOSITORY HNO ID: [id number] Author: Zahida Mckeon MD Service: Emergency Medicine Author Type: Physician Type: ED Provider Notes Filed: 03/12/2018 1:44 AM Note Text: ED Provider Note Patient Name: Yobany Londono SERVICE DATE: 03/12/18 History Patient presents with: Abdominal Pain HPI Comments: Recently seen by provider and has US and UGI scheduled with normal recent labs. Had CT of the abd last year for this same type of problem. Patient is a 37 year old female presenting with abdominal pain. History provided by: Patient and parent cloth washer used: No Abdominal Pain Pain location: Epigastric Pain quality: bloating and cramping Pain radiates to: Does not radiate Pain severity: Severe Onset quality: Gradual Duration: almost 2 years. Timing: Intermittent Progression: Unchanged Chronicity: Recurrent Context: medication withdrawal Context: not alcohol use, not diet changes and not recent illness Context comment: Requesting refill of bentyl and zofran. Relieved by: Nothing Worsened by: Nothing Ineffective treatments: None tried Associated symptoms: nausea Associated symptoms: no chest pain, no cough, no dysuria, no fatigue and no shortness of breath PAST MEDICAL HISTORY Diagnosis Date - Arthritis - Back pain since epidural 2001 - Chronic obstructive pulmonary disease (COPD) (HCC) - Depression with anxiety - Fibromyalgia shoulders - Hypertension diet controlled - Morbid obesity (HCC) - Osteochondroma, 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 - ORAL SURGERY PROCEDURE teeth removed - PAST SURGICAL HISTORY OF TM tubes - REMOVAL OF TONSILS,<12 Y/O Tonsillectomy - TUBAL LIGATION FAMILY HISTORY Problem Relation Age of Onset - Adopted: Yes - Diabetes Father - Hypertension Mother - Cancer Mother liver cancer - osteoarthritis [OTHER] Mother - Heart Maternal Grandmother - Cancer Maternal Grandmother - Diabetes Paternal Grandfather - Prostate Cancer Paternal Grandfather - Stroke Paternal Grandmother - Heart Sister hole in heart - Breast Cancer Sister - Alcohol/Drug Sister - osteochondroma [OTHER] Son - osteochondroma [OTHER] Son Social History Social History Main Topics - Smoking status: Current Every Day Smoker Packs/day: 0.50 Years: 15.00 Types: Cigarettes - Smokeless tobacco: Never Used Comment: Trying to quit - Alcohol use No Comment: rare wine cooler- not while - Drug use: No - Sexual activity: Yes Partners: Male control/ protection: None ALLERGIES Allergen Reactions - Seasonal Allergies Intolerance - Penicillins Rash, Vomiting JUST SENSITIVITY TO PCN PER DR FAJARDO Review of Systems Constitutional: Negative. Negative for appetite change and fatigue. Subjective fever 36 hours ago HENT: Negative. Eyes: Negative for visual disturbance. Respiratory: Negative for cough and shortness of breath. Cardiovascular: Negative for chest pain. Gastrointestinal: Positive for abdominal pain and nausea. Endocrine: Negative for polyuria. Genitourinary: Negative for dysuria. Musculoskeletal: Negative for back pain. Left lower rib pain Skin: Negative for rash. Allergic/Immunologic: Negative for immunocompromised state. Neurological: Negative. Psychiatric/Behavioral: Negative for confusion. Physical Exam BP 108/70 Pulse 76 Temp 97.4 Resp 20 Ht 5' 1 (1.55m) Wt 298 lb (135.2kg) SpO2 92% LMP 02/22/2018 BMI 56.34 kg/(m2). Physical Exam Constitutional: She is active. No distress. Morbidly obese adult female with weight in BMI 56 range. Sitting on the bed cross legged very chatty and in no distress HENT: Head: Normocephalic and atraumatic. Eyes: Pupils are equal, round, and reactive to light. No scleral icterus. Neck: Normal range of motion. Neck supple. Cardiovascular: Normal rate. Pulmonary/Chest: Effort normal. Abdominal: Soft. Neurological: She is alert. Skin: Skin is warm and dry. She is not diaphoretic. Psychiatric: She has a normal mood and affect. Nursing note and vitals reviewed. Diagnostic Testing ED Labs Ordered and Reviewed - No data to display Procedures Medical Decision Making / ED Course ED Course The patient reports that she is here for bentyl and zofran. She was at [place] [facility] recently and only received a few zofran. It is not entirely clear why she did not receive these medications from her primary provider. She reports left sided rib pain after lifting her 22 pound and notes that he is difficult to care for. Reviewed with the patient there has been no change in symptoms, just wants her bentyl Rx. Offered to give Bentyl IM but she refused any injections and 'does not like needles. Repeat vitals show HR 72 and pulse ox 92%. She does not have wheezing. There is no indication of dyspnea, leg pain, or syncope. Nothing to indicate angina. No indication for repeat labs tonight Encounter Diagnosis ICD-10-CM 1. Generalized abdominal pain R10.84 Plan The Patient was DISCHARGED: Counseled patient and father regarding suspected diagnosis AND need for follow-up. Discharged home with verbal and written instructions. They were instructed to return as needed for persistent or worsening symptoms or any new concerns. Condition at time of disposition: stable SIGNATURE: MD Zahida Murphy MD 03/12/18 0144 ED NOTE Observed: 03/12/2018 Status: COMPLETED Source: [place] 12:37 AM [facility] REPOSITORY HNO ID: [id number] Author: Kerri MercadoRn) TONY Fisher Service: Emergency Medicine Author Type: Registered Nurse Type: ED Notes Filed: 03/12/2018 12:42 AM Note Text: C/o mid upper abd pain, same pain she has been experiencing for a year and a half. pt sts has been seen multiple times for this. She was also seen by physician in [place] for this pain last week, had labwork done which was normal. Pt has appt for upper GI and ultrasound for 03/21. Pt was seen yesterday in [place] ER for rib pain but states today this pain feels like acid reflux, belching a lot, vomited x 1 (nausea improved with zofran). Pt sts she needs bentyl for the cramping because that is the only thing that helps when she has this pain. ED NOTE Observed: 03/11/2018 Status: COMPLETED Source: [place] 12:39 AM [facility] REPOSITORY HNO ID: [id number] Author: Francesco Barboza) TONY Ayala Service: (none) Author Type: Registered Nurse Type: ED Notes Filed: 03/11/2018 12:39 AM Note Text: The patient verbalizes understanding of discharge instructions. No additional questions or concerns at this time. Patient Vital signs stable, no acute distress noted. Patient ambulatory out of ED. Prescription(S) x 3 given. ED NOTE Observed: 03/11/2018 Status: COMPLETED Source: [place] 12:10 AM [facility] REPOSITORY HNO ID: [id number] Author: Laure MercadoRn) TONY Hernandez Service: (none) Author Type: Registered Nurse Type: ED Notes Filed: 03/11/2018 12:16 AM Note Text: Report to francesco poe rn ED NOTE Observed: 03/10/2018 Status: COMPLETED Source: [place] 11:48 PM [facility] REPOSITORY HNO ID: [id number] Author: Laure MercadoRn) TONY Hernandez Service: (none) Author Type: Registered Nurse Type: ED Notes Filed: 03/10/2018 11:48 PM Note Text: Patient returned to the Emergency Department. XR RIB/CHST 3V AP Observed: 03/10/2018 Status: F Source: [place] RIB/OBL/CHST L 11:48 PM CLINIC OTHER CAMPUS REPOSITORY * * *Final Report* * * DATE OF EXAM: Mar 10 2018 11:48PM MDX [id number] - XR RIB/CHST 3V AP RIB/OBL/CHST L / PROCEDURE REASON: Rib pain on left side * * * * Physician Interpretation * * * * XR RIB/CHST 3V AP RIB/OBL/CHST L: Exam Date/Time: 03/10/2018 11:48 PM Indications: Rib pain on left side. Technique: PA upright view of the chest, AP and oblique views of the and left-sided ribs were obtained. Comparison: Chest radiographs 11/17/2014. Limitations: Large body habitus/obesity. RESULTS: 1. Lines, Tubes, and Devices: N/A 2. Airway, lungs and Pleura: The trachea is unremarkable. There is mild chronic pleural thickening and mild chronic subpleural atelectasis or scarring laterally in the left lower thorax. No consolidation or infiltrate is identified. The costophrenic sulci are sharp. There is no pneumothorax. 3. Cardiomediastinal silhouette, fatoumata and pulmonary vasculature: The cardiomediastinal silhouette is normal in size. The fatoumata and pulmonary vasculature are within normal. 4. Other: There is an old healed fracture of the anterolateral aspect of the left eighth rib. No acute rib fracture is identified. There is an old healed fracture of the proximal left humeral shaft. IMPRESSION: No acute rib fracture identified. No evidence of acute cardiopulmonary process. Conference Planner: KATHY Transcribe Date/Time: Mar 11 2018 12:18A Dictated by : PARADISE PEREZ MD This examination was interpreted and the report reviewed and electronically signed by: PARADISE PEREZ MD on Mar 11 2018 12:22AM EST [id number] ED NOTE Observed: 03/10/2018 Status: COMPLETED Source: [place] 11:39 PM [facility] REPOSITORY HNO ID: [id number] Author: Laure (Rn) TONY Hernandez Service: (none) Author Type: Registered Nurse Type: ED Notes Filed: 03/10/2018 11:39 PM Note Text: Patient transported to [facility] with Tech. ED PROV NOTE Observed: 03/10/2018 Status: COMPLETED Source: [place] 11:26 PM [facility] OTHER [facility] REPOSITORY HNO ID: [id number] Author: Hector Richards) Ildefonso Service: (none) Author Type: Physician Bulk Plant Agent Type: ED Provider Notes Filed: 03/11/2018 12:41 AM Note Text: ED Provider Note Patient Name: Yobany Londono SERVICE DATE: 03/10/18 History Patient presents with: Pain: left ribcage pain and under the left breast HPI Comments: 37-year-old female presents emergency Department with complaints of discomfort under her left breast along her rib cage. States that she injured it while leaning over her child's crib. States that she was leaning on it and felt pressure increasing in the area. States the pain is reproducible with palpation as well as movement. States she has a history of COPD states some limitations with taking a deep breath to begin with but doesn't notice a significant increase following the injury. States that she has a slight cough which is her baseline. Denies any fever or chills. History provided by: Patient cloth washer used: No PAST MEDICAL HISTORY Diagnosis Date - Arthritis - Back pain since epidural 2001 - Chronic obstructive pulmonary disease (COPD) (HCC) - Depression with anxiety - Fibromyalgia shoulders - Hypertension diet controlled - Morbid obesity (HCC) - Osteochondroma, 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 - ORAL SURGERY PROCEDURE teeth removed - PAST SURGICAL HISTORY OF TM tubes - REMOVAL OF TONSILS,<12 Y/O Tonsillectomy - TUBAL LIGATION FAMILY HISTORY Problem Relation Age of Onset - Adopted: Yes - Diabetes Father - Hypertension Mother - Cancer Mother liver cancer - osteoarthritis [OTHER] Mother - Heart Maternal Grandmother - Cancer Maternal Grandmother - Diabetes Paternal Grandfather - Prostate Cancer Paternal Grandfather - Stroke Paternal Grandmother - Heart Sister hole in heart - Breast Cancer Sister - Alcohol/Drug Sister - osteochondroma [OTHER] Son - osteochondroma [OTHER] Son Social History Social History Main Topics - Smoking status: Current Every Day Smoker Packs/day: 0.50 Years: 15.00 Types: Cigarettes - Smokeless tobacco: Never Used Comment: Trying to quit - Alcohol use No Comment: rare wine cooler- not while - Drug use: No - Sexual activity: Yes Partners: Male control/ protection: None ALLERGIES Allergen Reactions - Seasonal Allergies Intolerance - Penicillins Rash, Vomiting JUST SENSITIVITY TO PCN PER DR FAJARDO Review of Systems Constitutional: Negative. Negative for chills, fatigue and fever. HENT: Negative. Negative for congestion and rhinorrhea. Respiratory: Positive for cough. Negative for chest tightness, shortness of breath and wheezing. Cardiovascular: Negative. Negative for chest pain, palpitations and leg swelling. Gastrointestinal: Negative. Negative for abdominal pain, nausea and vomiting. Genitourinary: Negative. Negative for dysuria, flank pain and frequency. Musculoskeletal: Negative. Negative for back pain and neck pain. Left rib pain Skin: Negative. Negative for color change, rash and wound. Neurological: Negative. Negative for dizziness, light-headedness and headaches. Psychiatric/Behavioral: Negative. Physical Exam BP 135/75 Pulse 72 Temp (Src) 97.9 (Oral) Resp 16 Ht 5' 1 (1.55m) Wt 300 lb (136.1kg) SpO2 96% LMP 02/22/2018 BMI 56.71 kg/(m2). Physical Exam Constitutional: She is oriented to person, place, and time. She appears well-developed and well-nourished. No distress. HENT: Head: Normocephalic and atraumatic. Eyes: EOM are normal. Pupils are equal, round, and reactive to light. Neck: Normal range of motion. Cardiovascular: Normal rate, regular rhythm and normal heart sounds. Pulmonary/Chest: Effort normal and breath sounds normal. No respiratory distress. She has no wheezes. She exhibits tenderness. She exhibits no mass and no bony tenderness. Pain is reproducible with palpation along the rib cage. No point tenderness. No deformity. Patient is able to take a deep breath without discomfort. No discoloration or signs of significant trauma. No rash visible. Musculoskeletal: Normal range of motion. Neurological: She is alert and oriented to person, place, and time. No cranial nerve deficit. Coordination normal. Skin: Skin is warm. No rash noted. No erythema. Psychiatric: She has a normal mood and affect. Her behavior is normal. Judgment and thought content normal. Nursing note and vitals reviewed. Diagnostic Testing ED Labs Ordered and Reviewed - No data to display Procedures Medical Decision Making / ED Course ED Course Clinic and hemodynamically stable at discharge. Patient feels comfortable with discharge plan and understands discharge instructions. Patient understands the importance of follow-up with a primary care doctor and return here as needed. Patient pain is completely reproducible palpation, movement but no clinical suspicion for shingles or cardiac or pulmonary source of her discomfort. Encounter Diagnosis ICD-10-CM 1. Left-sided chest wall pain R07.89 Plan The Patient was DISCHARGED: Counseled patient regarding radiology results AND suspected diagnosis AND need for follow-up. Discharged home with verbal and written instructions. They were instructed to return as needed for persistent or worsening symptoms or any new concerns. Condition at time of disposition: stable SIGNATURE: SUSANNAH Montoya (Pa) 03/11/18 0041 ED NOTE Observed: 03/10/2018 Status: COMPLETED Source: [place] 11:11 PM [facility] REPOSITORY HNO ID: [id number] Author: Laure Barboza) TONY Hernandez Service: (none) Author Type: Registered Nurse Type: ED Notes Filed: 03/10/2018 11:12 PM Note Text: Pt states she has been Under a lot of stress lately. Hurts when she takes a deep breath in ED NOTE Observed: 03/10/2018 Status: COMPLETED Source: [place] 11:07 PM [facility] RE[facility] HNO ID: [id number] Author: Laure MercadoRn) Mary RN Service: (none) Author Type: Registered Nurse Type: ED Notes Filed: 03/10/2018 11:07 PM Note Text: Pt has a hx of copd, she has sob and left rib pain under her left breast that started 5 days ago, pt states she is not on control, pt reports her third c sec was in 2015 ED NOTE Observed: 03/10/2018 Status: COMPLETED Source: [place] 9:49 PM [facility] REPOSITORY HNO ID: [id number] Author: Trisha (Rn) TONY Hart Service: (none) Author Type: Registered Nurse Type: ED Notes Filed: 03/10/2018 9:49 PM Note Text: Pt has left side ribcage pain Pain is under her left breast She said the pain is aggravated when she reaches over her breann crib CBC Collected: 03/07/2018 Status: F Source: [place] 12:26 PM [facility] REPOSITORY TYPE CODE TESTS RESULT OUT OF REFERENCE UNITS RANGE LAB WBC 3.70-11.00 k/uL WBC High 11.07 LAB RBC 3.90-5.20 m/uL RBC 4.65 LAB HGB 11.5-15.5 g/dL Hemoglobin 12.5 LAB HCT 36.0-46.0 % Hematocrit 43.5 LAB MCV 80.0-100.0 fL MCV 93.5 LAB MCH 26.0-34.0 pG MCH 26.9 LAB MCHC 30.5-36.0 g/dL Low MCHC 28.7 LAB RDWCV 11.5-15.0 % RDW-CV High 15.9 LAB PLTCT 150-400 k/uL Platelet Count 247 LAB MPV 9.0-12.7 fL MPV 11.8 LAB ABSNUC <0.01 k/uL Absolute nRBC <0.01 Performed By: #### CBC, CMP, HPYLRI #### [facility] [address] [address] COMP METABOLIC PANEL Collected: 03/07/2018 Status: F Source: [place] 12:26 PM [facility] REPOSITORY TYPE CODE TESTS RESULT OUT OF REFERENCE UNITS RANGE LAB TP 6.3-8.0 g/dL Protein, Total 6.9 LAB ALB 3.9-4.9 g/dL Low Albumin 3.4 LAB CA 8.5-10.2 mg/dL Calcium, Total 8.8 LAB TBIL 0.2-1.3 mg/dL Bilirubin, Total 0.4 LAB ALKP 32-117 U/L Alkaline Phosphatase 55 LAB AST 13-35 U/L AST 18 LAB GLU 74-99 mg/dL Glucose 77 Result Comment: The [place] [employer] (ADA) provides guidance for cutoff values for fasting glucose and random glucose. The ADA defines fasting as no caloric intake for at least 8 hours. Fas ting plasma glucose results between 100 to 125 mg/dL indicate increased risk for diabetes (prediabetes). Fasting plasma glucose results greater than or equal to 126 mg/dL meet the criteria for diagnosis of diabetes. In the absence of unequivocal hyperglycemia, results should be confirmed by repeat testing. In a patient with classic symptoms of hyperglycemia or hyperglycemic crisis, random plasma glucose results greater than or equal to 200 mg/dL meet the criteria for diagnosis of diabetes. Reference: Standards of Medical Care in Diabetes 2016, [place] [employer] Association. Diabetes Care. 2016.39(Suppl 1). LAB BUN 7-21 mg/dL BUN 12 LAB CRET 0.58-0.96 mg/dL Creatinine 0.60 LAB NA 136-144 mmol/L Sodium 138 LAB K 3.7-5.1 mmol/L Potassium 4.0 LAB CL 97-105 mmol/L Low Chloride 96 LAB CO2 22-30 mmol/L CO2 High 32 LAB AGAP 9-18 mmol/L Anion Gap 10 LAB ALT 7-38 U/L ALT 14 LAB GFRAA eGFR- Amer. >60 LAB GFRNAA . eGFR-All Other Races >60 Result Comment: eGFR (Estimated GFR) Units of measure: mL/min/1.73 meters squared eGFR is derived from the reexpressed MDRD Study equation using the following parameters: serum creatinine, age, gender and race. The creatinine assay has been calibrated to be traceable to IDMS. An eGFR <60 mL/min/1.73m2 for >3 months is consistent with chronic kidney disease. Refer to KDOQI guidelines for clinical interpretation. In patients with unstable renal function, e.g. those with acute kidney injury, the eGFR may not accurately reflect actual GFR. Performed By: #### CBC, CMP, HPYLRI #### [facility] [address] [place], [place] [address] HELICO PYLORI AB Collected: 03/07/2018 Status: F Source: [place] 12:26 PM [facility] REPOSITORY TYPE CODE TESTS RESULT OUT OF REFERENCE UNITS RANGE LAB HPYLRL Negative H. pylori Negative IgG, Qual Result Comment: H. pylori IgG antibodies were not detected in the sample. Negative results by this test do not preclude recent primary infection. LAB HPYLR U/mL H pylori Ab, IgG <0.4 Result Comment: U/mL are interpreted as follows: Negative specimens <0.9 Indeterminate specimens >=0.9 to <1.1 Positive specimens >=1.1 Results were obtained with the IMMULITE 2000 H.pylori IgG EIA. Results obtained from other manufacturers' assay methods may not be used interchangeably. Performed By: #### CBC, CMP, HPYLRI #### [facility] [address] [place], [place] [address] PROGRESS Observed: 03/07/2018 Status: COMPLETED Source: [place] 11:22 AM [facility] REPOSITORY HNO ID: [id number] Author: Sho (Rn Research) Giuseppe Service: (none) Author Type: Nurse Practitioner Type: Progress Notes Filed: 03/07/2018 12:20 PM Note Text: This is a 37 year old female who presents today with: Patient presents with: Abdominal Pain: upper abdominal pain X months HISTORY OF PRESENT ILLNESS: Yobany Londono is a 37 year old female. Patient presents with: Abdominal Pain: upper abdominal pain X months Pt presents today with complaint of abdominal pain for months. Refers that she has been in the ER several times. Refers that has gastritis. Refers that put on bentyl and zofran. Refers increased stress. + problems with heart burn. Taking omeprazole. Is on meloxicam. Does admit that she eats a lot of fast food. Refers doesn't have time to prepare healthy meals. Also, doesn't have teeth. No nausea/vomiting. No diarrhea. + constipation. Sometimes does have to strain to stool. Refers if she sneezes or coughs a lot, pain will be worse. Light duty and doing something to keep the belly from cramping helps the pain. 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 - ORAL SURGERY PROCEDURE teeth removed - PAST SURGICAL HISTORY OF TM tubes - REMOVAL OF TONSILS,<12 Y/O Tonsillectomy ALLERGIES Seasonal Allergies; Penicillins MEDICATIONS Current Outpatient Prescriptions: albuterol (PROVENTIL) 2.5 mg /3 mL (0.083 %) nebulizer solution Use 3 mL via nebulizer one time only for 1 dose. Use over 5-15minutes. budesonide-formoterol (SYMBICORT) 160-4.5 mcg/actuation inhaler Inhale 2 Puffs as instructed twice daily. albuterol (PROVENTIL) 2.5 mg /3 mL (0.083 %) nebulizer solution inhale the contents of 1 vial via nebulizer four times daily over 5-15 minutes omeprazole (PRILOSEC) 20 mg capsule Take 1 capsule by mouth daily before breakfast. 1/2 hr before meal. albuterol HFA (VENTOLIN HFA) 90 mcg/actuation inhaler Inhale 2 Puffs as instructed every 6 hours as needed for Wheezing/Shortness of Breath. meloxicam (MOBIC) 15 mg tablet Take 1 tablet by mouth once daily. Take with food. acetaminophen (TYLENOL) 500 mg tablet EVERY 6 HOURS NEEDED citalopram (CELEXA) 40 mg tablet Take 1 tablet by mouth once daily. fluticasone (FLONASE) 50 mcg/actuation nasal spray Use 2 Sprays in each nostril once daily. Rinse mouth after use. vitamin b complex (B COMPLETE) tab Take 1 tablet by mouth once daily. loratadine (CLARITIN) 10 mg tablet Take 1 tablet by mouth once daily as needed. FOR ALLERGY SYMPTOMS multivitamin tablet Take 1 tablet by mouth once daily. ibuprofen (MOTRIN) 600 mg tablet Take 1 tablet by mouth every 6 hours as needed for Pain. No current facility-administered medications for this visit. FAMILY HISTORY Problem Relation Age of Onset - Adopted: Yes - Diabetes Father - Hypertension Mother - Cancer Mother liver cancer - osteoarthritis [OTHER] Mother - Heart Maternal Grandmother - Cancer Maternal Grandmother - Diabetes Paternal Grandfather - Prostate Cancer Paternal Grandfather - Stroke Paternal Grandmother - Heart Sister hole in heart - Breast Cancer Sister - Alcohol/Drug Sister - osteochondroma [OTHER] Son - osteochondroma [OTHER] Son Social History Marital status: Spouse name: Years of education: Number of children: Occupational History Occupation Employer Comment unemployed, disabi* Social History Main Topics Smoking status: Current Every Day Smoker Packs/day: 0.30 Years: 15.00 Types: Cigarettes Smokeless status: Never Used Comment: Trying to quit Alcohol use: No Comment: rare wine cooler- not while Drug use: No Sexual activity: Yes Partners with: Male control/protection: None Social History Narrative Mother 2011. Father needs her help. 2 sons. EXAM: BP 126/74 (BP Site: Left Arm, BP Position: Sitting, BP Cuff Size: Large Adult) Pulse 78 Resp 14 Wt 135.2 kg (298 lb) LMP 02/22/2018 BMI 56.31 kg/m2 PHYSICAL EXAM: General Appearance: Well appearing, alert, in no acute distress, well-hydrated, well nourished.. Skin: Skin color, texture, turgor normal, no suspicious rashes or lesions. Head: Normocephalic, no masses, lesions, tenderness or abnormalities. Eyes: Anicteric sclera. Extraocular movements are intact. . Lungs: Lungs clear to auscultation. No rhonchi, rales. Scattered exp wheezes. Heart: RRR without murmur, gallop, or rubs. No ectopy. Abdomen: Abdomen soft. Bowel sounds normal. No masses, organomegaly, Positive findings: obese with tenderness over the epigastric area. Neurologic: Gait normal. ASSESSMENT/PLAN: 1. Epigastric pain - ICD9: 789.06, ICD10: R10.13 (primary diagnosis) - Labs of CBC with Diff, CMP and H pylori Antibodies - Work up with RUQ ultrasound and upper GI. - Increase fiber in diet - Treatment for constipation discussed - Discussed lifestyle modifications including losing weight - Setup for Upper GI Series with Follow Through - H PYLORI IGG AB - US ABD RT UPPER QUADRANT - XR UPPER GI ROUTINE DOUBLE CONTRAST/AIR - CBC - COMP METABOLIC PANEL 2. Obesity, Class III, BMI 40-49.9 (morbid obesity) (HCC) - ICD9: 278.01, ICD10: E66.01 Discussed with patient that some of her pain may be a result of the large abdominal. Encouraged diet/exercise/weight loss. Encouraged to log foods and limit fast food and empty calories. Discussed treatment plan and patient voices understanding. Patient's questions answered appropriately. Medications and potential side effects were discussed and patient voices understanding. Return to the office as scheduled or as needed for worsening/no improvement. Sho Chin APRN.BUFFER CHROME CNOV Observed: 03/07/2018 Status: COMPLETED Source: [place] 11:00 AM [facility] REPOSITORY Office Visit (FAMPWS) YOBANY LONDONO ([id number]) 1980 F [facility] Date Time Provider Department 03/07/18 11:00 AM SHO CHIN (RAN) FAMPWS During your visit today, we recorded the following information about you: Pulse Respiration Blood pressure Weight 78/minute 14/minute 126/74 135.2 kg Sho Chin APRN.CNP 03/07/2018 12:20 PM Signed This is a 37 year old female who presents today with: Patient presents with: Abdominal Pain: upper abdominal pain X months HISTORY OF PRESENT ILLNESS: Yobany Londono is a 37 year old female. Patient presents with: Abdominal Pain: upper abdominal pain X months Pt presents today with complaint of abdominal pain for months. Refers that she has been in the ER several times. Refers that has gastritis. Refers that put on bentyl and zofran. Refers increased stress. + problems with heart burn. Taking omeprazole. Is on meloxicam. Does admit that she eats a lot of fast food. Refers doesn't have time to prepare healthy meals. Also, doesn't have teeth. No nausea/vomiting. No diarrhea. + constipation. Sometimes does have to strain to stool. Refers if she sneezes or coughs a lot, pain will be worse. Light duty and doing something to keep the belly from cramping helps the pain. 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 - ORAL SURGERY PROCEDURE teeth removed - PAST SURGICAL HISTORY OF TM tubes - REMOVAL OF TONSILS,ANDlt;14 Y/O Tonsillectomy ALLERGIES Seasonal Allergies; Penicillins MEDICATIONS Current Outpatient Prescriptions: albuterol (PROVENTIL) 2.5 mg /3 mL (0.083 %) nebulizer solution Use 3 mL via nebulizer one time only for 1 dose. Use over 5-15minutes. budesonide-formoterol (SYMBICORT) 160-4.5 mcg/actuation inhaler Inhale 2 Puffs as instructed twice daily. albuterol (PROVENTIL) 2.5 mg /3 mL (0.083 %) nebulizer solution inhale the contents of 1 vial via nebulizer four times daily over 5-15 minutes omeprazole (PRILOSEC) 20 mg capsule Take 1 capsule by mouth daily before breakfast. 1/2 hr before meal. albuterol HFA (VENTOLIN HFA) 90 mcg/actuation inhaler Inhale 2 Puffs as instructed every 6 hours as needed for Wheezing/Shortness of Breath. meloxicam (MOBIC) 15 mg tablet Take 1 tablet by mouth once daily. Take with food. acetaminophen (TYLENOL) 500 mg tablet EVERY 6 HOURS NEEDED citalopram (CELEXA) 40 mg tablet Take 1 tablet by mouth once daily. fluticasone (FLONASE) 50 mcg/actuation nasal spray Use 2 Sprays in each nostril once daily. Rinse mouth after use. vitamin b complex (B COMPLETE) tab Take 1 tablet by mouth once daily. loratadine (CLARITIN) 10 mg tablet Take 1 tablet by mouth once daily as needed. FOR ALLERGY SYMPTOMS multivitamin tablet Take 1 tablet by mouth once daily. ibuprofen (MOTRIN) 600 mg tablet Take 1 tablet by mouth every 6 hours as needed for Pain. No current facility-administered medications for this visit. FAMILY HISTORY Problem Relation Age of Onset - Adopted: Yes - Diabetes Father - Hypertension Mother - Cancer Mother liver cancer - osteoarthritis [OTHER] Mother - Heart Maternal Grandmother - Cancer Maternal Grandmother - Diabetes Paternal Grandfather - Prostate Cancer Paternal Grandfather - Stroke Paternal Grandmother - Heart Sister hole in heart - Breast Cancer Sister - Alcohol/Drug Sister - osteochondroma [OTHER] Son - osteochondroma [OTHER] Son Social History Marital status: Spouse name: Years of education: Number of children: Occupational History Occupation Employer Comment unemployed, disabi* Social History Main Topics Smoking status: Current Every Day Smoker Packs/day: 0.30 Years: 15.00 Types: Cigarettes Smokeless status: Never Used Comment: Trying to quit Alcohol use: No Comment: rare wine cooler- not while Drug use: No Sexual activity: Yes Partners with: Male control/protection: None Social History Narrative Mother 2011. Father needs her help. 2 sons. EXAM: BP 126/74 (BP Site: Left Arm, BP Position: Sitting, BP Cuff Size: Large Adult) Pulse 78 Resp 14 Wt 135.2 kg (298 lb) LMP 02/22/2018 BMI 56.31 kg/m2 PHYSICAL EXAM: General Appearance: Well appearing, alert, in no acute distress, well-hydrated, well nourished.. Skin: Skin color, texture, turgor normal, no suspicious rashes or lesions. Head: Normocephalic, no masses, lesions, tenderness or abnormalities. Eyes: Anicteric sclera. Extraocular movements are intact. . Lungs: Lungs clear to auscultation. No rhonchi, rales. Scattered exp wheezes. Heart: RRR without murmur, gallop, or rubs. No ectopy. Abdomen: Abdomen soft. Bowel sounds normal. No masses, organomegaly, Positive findings: obese with tenderness over the epigastric area. Neurologic: Gait normal. ASSESSMENT/PLAN: 1. Epigastric pain - ICD9: 789.06, ICD10: R10.13 (primary diagnosis) - Labs of CBC with Diff, CMP and H pylori Antibodies - Work up with RUQ ultrasound and upper GI. - Increase fiber in diet - Treatment for constipation discussed - Discussed lifestyle modifications including losing weight - Setup for Upper GI Series with Follow Through - H PYLORI IGG AB - US ABD RT UPPER QUADRANT - XR UPPER GI ROUTINE DOUBLE CONTRAST/AIR - CBC - COMP METABOLIC PANEL 2. Obesity, Class III, BMI 40-49.9 (morbid obesity) (HCC) - ICD9: 278.01, ICD10: E66.01 Discussed with patient that some of her pain may be a result of the large abdominal. Encouraged diet/exercise/weight loss. Encouraged to log foods and limit fast food and empty calories. Discussed treatment plan and patient voices understanding. Patient's questions answered appropriately. Medications and potential side effects were discussed and patient voices understanding. Return to the office as scheduled or as needed for worsening/no improvement. Sho Chin APRN.RAN Chin APRN.CNP 03/07/2018 11:50 AM Signed 1. Labs today. 2. Schedule upper GI and ultrasound. 3. Please try to improve diet, exercise, weight loss. Referring Provider: SELF [[id number]] Allergies As of Date: 03/07/2018 Noted Allergy Reaction SEASONAL ALLERGIES 05/04/2013 5 - Intolerance PENICILLINS 02/11/2007 2 - Rash 11 - Vomiting Comments: JUST SENSITIVITY TO PCN PER DR FAJARDO Date Reviewed: 03/07/2018 Reviewed by: Carli Pinzon Specialist Physicians - Fully Assessed Reason for Visit: Abdominal Pain [1] Cmt: upper abdominal pain X months Primary Visit Diagnosis:Epigastric pain [R10.13] Other Visit Diagnosis:Obesity, Class III, BMI 40-49.9 (morbid obesity) ([facility]) [E66.01] Order(s):H PYLORI IGG AB [SQHPYLRI] Order #: [id number] FUTURE US ABD RT UPPER QUADRANT [[id number]] Order #: [id number] FUTURE XR UPPER GI ROUTINE DOUBLE CONTRAST/AIR [[id number]] Order #: [id number] FUTURE CBC [SQCBC] Order #: [id number] FUTURE COMP METABOLIC PANEL [SQCMP] Order #: [id number] FUTURE Prescriptions as of 03/07/2018 Sig: ALBUTEROL SULFATE 2.5 MG/3 ML* Use 3 mL via nebulizer one ti* BUDESONIDE-FORMOTEROL HFA 160* Inhale 2 Puffs as instructed * ALBUTEROL SULFATE 2.5 MG/3 ML* inhale the contents of 1 vial* OMEPRAZOLE 20 MG CAPSULE,GHASSAN* Take 1 capsule by mouth daily* ALBUTEROL SULFATE HFA 90 MCG/* Inhale 2 Puffs as instructed * MELOXICAM 15 MG TABLET Take 1 tablet by mouth once d* ACETAMINOPHEN 500 MG TABLET EVERY 6 HOURS NEEDED CITALOPRAM 40 MG TABLET Take 1 tablet by mouth once d* FLUTICASONE 50 MCG/ACTUATION * Use 2 Sprays in each nostril * VITAMIN B COMPLEX TABLET Take 1 tablet by mouth once d* LORATADINE 10 MG TABLET Take 1 tablet by mouth once d* MULTIVITAMIN TABLET Take 1 tablet by mouth once d* IBUPROFEN 600 MG TABLET Take 1 tablet by mouth every * Problem List As Of Date 03/07/2018 Noted Resolved Pulpitis [K04.01] INVALID FOR* OTHER LUNG DISEASE NEC [J98.4] INVALID FOR*03/09/2008 Tobacco Use Disorder [F17.200] INVALID FOR* Acute Bronchitis [J20.9] INVALID FOR* Chronic Airway Obstruction, not Elsewhere Class*INVALID FOR* Morbid obesity [E66.01] Back pain [M54.9] More... Osteochondroma, multiple [Q78.6] More... Asthma [J45.909] Depression with anxiety [F41.8] Asthma exacerbation [J45.901] INVALID FOR* SOB (shortness of breath) [R06.02] INVALID FOR* Fibromyalgia [M79.7] INVALID FOR* History of section [Z98.891] INVALID FOR* More... Obesity in [O99.210] INVALID FOR*03/07/2018 More... Supervision of normal [Z34.90] INVALID FOR*03/07/2018 Family history of seizure disorder [Z82.0] INVALID FOR* More... Encounter for sterilization [Z30.2] INVALID FOR* More... cardiac anomaly affecting , ante*INVALID FOR*03/07/2018 [Z34.90] INVALID FOR*03/07/2018 Other instructions from your clinician: 1. Labs today. 2. Schedule upper GI and ultrasound. 3. Please try to improve diet, exercise, weight loss. Follow-up and Disposition History Recorded Encounter Status:Closed by SHO CHIN CNP on 03/07/18 CHEST 2 VIEWS Observed: 02/23/2018 Status: F Source: [facility] 1:23 AM HEALTH SYSTEM REPOSITORY Performed at [facility] APPROVED BY: JOÃO POLANCO MD TECHNIQUE: CHEST X-RAY 2 VIEWS EXAM DATE: 02/23/2018 1:23 AM COMPARISON STUDIES: 02/15/2018 CLINICAL HISTORY: Shortness of breath RESULT: Stable cardiomediastinal silhouette. Lateral film degraded by motion. Both films degraded by patient body habitus. Trace left pleural fluid versus pleural thickening. No pneumothorax. No gr oss focal consolidation. Chronic deformities proximal humerus bilaterally IMPRESSION: Trace left pleural fluid versus pleural thickening ED NOTE Observed: 02/23/2018 Status: COMPLETED Source: [place] 1:08 AM [facility] REPOSITORY HNO ID: [id number] Author: Chayo (Rn) TONY Sexton Service: Emergency Medicine Author Type: Registered Nurse Type: ED Notes Filed: 02/23/2018 1:08 AM Note Text: To Xray at this time. ED PROV NOTE Observed: 02/23/2018 Status: COMPLETED Source: [place] 12:35 AM [facility] REPOSITORY HNO ID: [id number] Author: Morena Carbone MD Service: Emergency Medicine Author Type: Physician Type: ED Provider Notes Filed: 02/23/2018 1:42 AM Note Text: ED Provider Note Patient Name: Yobany Londono SERVICE DATE: 02/23/18 History Patient presents with: Shortness of Breath HPI Patient presents with shortness of breath and hypoxia. Patient has a history of asthma, is currently a smoker. Was seen here on February 15 and had a negative chest x-ray but was wheezing, was diagnosed with bronchitis and put on doxycycline and prednisone. She has finished a course of prednisone, has several days left of the doxycycline. She felt like her breathing is getting worse and not better, still coughing up large amounts of sputum so she went to urgent care today. Pulse ox on room air was 88% so they recommended she came to the emergency department. That was this morning, 13 hours ago, but she had to go home to take care of her child and couldn't come until her got off work. States that she has used 3 albuterol nebulizers solutions throughout the afternoon at home. 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 - ORAL SURGERY PROCEDURE teeth removed - PAST SURGICAL HISTORY OF TM tubes - REMOVAL OF TONSILS,<14 Y/O Tonsillectomy FAMILY HISTORY Problem Relation Age of Onset - Adopted: Yes - Diabetes Father - Hypertension Mother - Cancer Mother liver cancer - osteoarthritis [OTHER] Mother - Heart Maternal Grandmother - Cancer Maternal Grandmother - Diabetes Paternal Grandfather - Prostate Cancer Paternal Grandfather - Stroke Paternal Grandmother - Heart Sister hole in heart - Breast Cancer Sister - Alcohol/Drug Sister - osteochondroma [OTHER] Son - osteochondroma [OTHER] Son Social History Social History Main Topics - Smoking status: Current Every Day Smoker Packs/day: 0.30 Years: 15.00 Types: Cigarettes - Smokeless tobacco: Never Used Comment: Trying to quit - Alcohol use No Comment: rare wine cooler- not while - Drug use: No - Sexual activity: Yes Partners: Male control/ protection: None ALLERGIES Allergen Reactions - Seasonal Allergies Intolerance - Penicillins Rash, Vomiting JUST SENSITIVITY TO PCN PER DR FAJARDO Review of Systems Constitutional: Negative. Negative for chills and fever. HENT: Positive for congestion. Negative for sore throat. Eyes: Negative. Negative for visual disturbance. Respiratory: Positive for cough, shortness of breath and wheezing. Cardiovascular: Negative. Negative for chest pain. Gastrointestinal: Negative. Negative for abdominal pain, diarrhea and vomiting. Endocrine: Negative. Genitourinary: Negative. Negative for difficulty urinating. Musculoskeletal: Negative. Negative for arthralgias and myalgias. Skin: Negative. Negative for color change and rash. Allergic/Immunologic: Negative. Neurological: Negative. Negative for headaches. Hematological: Negative. Does not bruise/bleed easily. Psychiatric/Behavioral: Negative. Negative for confusion. All other systems reviewed and are negative. Physical Exam BP 122/74 Pulse 79 Temp 97.3 Resp 21 Ht 5' 1 (1.55m) Wt 292 lb (132.5kg) SpO2 100% LMP 02/22/2018 BMI 55.20 kg/(m2). Physical Exam Constitutional: She is oriented to person, place, and time. She appears well-developed and well-nourished. Patient speaking in complete sentences and does not appear to be in respiratory distress HENT: Head: Normocephalic and atraumatic. Eyes: EOM are normal. Pupils are equal, round, and reactive to light. Neck: Normal range of motion. Neck supple. Cardiovascular: Normal rate, regular rhythm, normal heart sounds and intact distal pulses. Exam reveals no gallop and no friction rub. No murmur heard. Pulmonary/Chest: Effort normal. No respiratory distress. She has wheezes. She has no rales. Occasional faint expiratory wheeze but decreased air movement throughout all lung carballo, no respiratory distress Abdominal: Soft. There is no tenderness. There is no rebound and no guarding. Musculoskeletal: Normal range of motion. She exhibits no edema or tenderness. Neurological: She is alert and oriented to person, place, and time. No cranial nerve deficit. Skin: Skin is warm and dry. No rash noted. No erythema. Psychiatric: She has a normal mood and affect. Her behavior is normal. Judgment and thought content normal. Diagnostic Testing ED Labs Ordered and Reviewed - No data to display Procedures Medical Decision Making / ED Course ED Course Patient was given a DuoNeb and 2 albuterol treatments here and on repeat evaluation she is moving air much better, speaking complete sentences. Pulse ox is 100% on room air. Chest x-ray shows atelectasis at the bases and some motion artifact but no significant change from previous and given that she just finished her doxycycline course, nothing to warrant a repeat course of antibiotics. Will give her several more days of steroids to help decrease her inflammation, have encouraged smoking cessation and close PCP follow-up with return if worsening symptoms. Encounter Diagnosis ICD-10-CM 1. Moderate asthma with exacerbation, unspecified whether persistent J45.901 Plan The Patient was DISCHARGED: Counseled patient regarding radiology results AND suspected diagnosis AND need for follow-up. Discharged home with verbal and written instructions. They were instructed to return as needed for persistent or worsening symptoms or any new concerns. Condition at time of disposition: improved and stable SIGNATURE: MD Morena Calderón MD 02/23/18 0142 ED NOTE Observed: 02/23/2018 Status: COMPLETED Source: [place] 12:30 AM [facility] REPOSITORY HNO ID: [id number] Author: Chayo MercadoRnAbena Sexton RN Service: Emergency Medicine Author Type: Registered Nurse Type: ED Notes Filed: 02/23/2018 12:42 AM Note Text: alarm security or surveillance monitor applied per orders PROGRESS Observed: 02/22/2018 Status: COMPLETED Source: [place] 12:00 PM [facility] REPOSITORY HNO ID: [id number] Author: Sridhar Truong Service: (none) Author Type: Nurse Practitioner Type: Progress Notes Filed: 02/22/2018 12:53 PM Note Text: Subjective HPI HPI Yobany Londono is a 37 year old female who presents today for CC of sinus pressure. This started over 1 week. Has tried otc medication. Symptoms are worsened by nothing. Risk factors hx of copd, multiple sick exposures at home. 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 - ORAL SURGERY PROCEDURE teeth removed - PAST SURGICAL HISTORY OF TM tubes - REMOVAL OF TONSILS,<14 Y/O Tonsillectomy ALLERGIES Seasonal Allergies; Penicillins MEDICATIONS doxycycline monohydrate 100 mg tablet Take 1 tablet by mouth twice daily for 10 days. budesonide-formoterol (SYMBICORT) 160-4.5 mcg/actuation inhaler Inhale 2 Puffs as instructed twice daily. albuterol (PROVENTIL) 2.5 mg /3 mL (0.083 %) nebulizer solution inhale the contents of 1 vial via nebulizer four times daily over 5-15 minutes omeprazole (PRILOSEC) 20 mg capsule Take 1 capsule by mouth daily before breakfast. 1/2 hr before meal. albuterol HFA (VENTOLIN HFA) 90 mcg/actuation inhaler Inhale 2 Puffs as instructed every 6 hours as needed for Wheezing/Shortness of Breath. meloxicam (MOBIC) 15 mg tablet Take 1 tablet by mouth once daily. Take with food. acetaminophen (TYLENOL) 500 mg tablet EVERY 6 HOURS NEEDED citalopram (CELEXA) 40 mg tablet Take 1 tablet by mouth once daily. fluticasone (FLONASE) 50 mcg/actuation nasal spray Use 2 Sprays in each nostril once daily. Rinse mouth after use. vitamin b complex (B COMPLETE) tab Take 1 tablet by mouth once daily. loratadine (CLARITIN) 10 mg tablet Take 1 tablet by mouth once daily as needed. FOR ALLERGY SYMPTOMS multivitamin tablet Take 1 tablet by mouth once daily. ibuprofen (MOTRIN) 600 mg tablet Take 1 tablet by mouth every 6 hours as needed for Pain. FAMILY HISTORY Problem Relation Age of Onset - Adopted: Yes - Diabetes Father - Hypertension Mother - Cancer Mother liver cancer - osteoarthritis [OTHER] Mother - Heart Maternal Grandmother - Cancer Maternal Grandmother - Diabetes Paternal Grandfather - Prostate Cancer Paternal Grandfather - Stroke Paternal Grandmother - Heart Sister hole in heart - Breast Cancer Sister - Alcohol/Drug Sister - osteochondroma [OTHER] Son - osteochondroma [OTHER] Son Social History Substance Use Topics - Smoking status: Current Every Day Smoker Packs/day: 0.30 Years: 15.00 Types: Cigarettes - Smokeless tobacco: Never Used Comment: Trying to quit - Alcohol use No Comment: rare wine cooler- not while Review of Systems Constitutional: Negative for chills, fever and weight loss. HENT: Positive for congestion and sore throat. Negative for ear pain and nosebleeds. Respiratory: Positive for cough. Negative for shortness of breath and wheezing. Musculoskeletal: Negative for neck pain. Objective Physical Exam Constitutional: She is oriented to person, place, and time and well-developed, well-nourished, and in no distress. Non-toxic appearance. She does not have a sickly appearance. No distress. HENT: Head: Normocephalic and atraumatic. Right Ear: Hearing, tympanic membrane, external ear and ear canal normal. Left Ear: Hearing, tympanic membrane, external ear and ear canal normal. Nose: Nose normal. Mouth/Throat: Uvula is midline, oropharynx is clear and moist and mucous membranes are normal. Eyes: Conjunctivae and lids are normal. Pupils are equal, round, and reactive to light. Right eye exhibits no discharge. Left eye exhibits no discharge. No scleral icterus. Neck: Trachea normal and normal range of motion. Neck supple. Cardiovascular: Normal rate, regular rhythm and normal heart sounds. Pulmonary/Chest: She is in respiratory distress. She has decreased breath sounds in the right lower field and the left lower field. Lymphadenopathy: She has no cervical adenopathy. Neurological: She is alert and oriented to person, place, and time. Skin: No rash noted. She is not diaphoretic. ASSESSMENT/PLAN: 1. Low oxygen saturation - ICD9: 790.91, ICD10: R79.81 After nebulizer, O@ remained low, 88%, and respirations in the 30's -I recommend ER evaluation, treatment -report called [facility] ER MD -wants to drive pov - ALBUTEROL SULFATE 2.5 MG/3 ML (0.083 %) SOLUTION FOR NEBULIZATION Sridhar Truong APRN.CNP CNOV Observed: 02/22/2018 Status: COMPLETED Source: [place] 11:45 AM [facility] REPOSITORY Office Visit (WSTR) YOBANY LONDONO ([id number]) 1980 F DARYL Date Time Provider Department 02/22/18 11:45 AM SRIDHAR TRUONG (RAN) [facility] During your visit today, we recorded the following information about you: Temperature Pulse Respiration Blood pressure 98 degrees 83/minute 30/minute 122/70 Weight Last Period 134.7 kg 02/22/18 Sridhar Truong APRN.CNP 02/22/2018 12:53 PM Signed Subjective HPI HPI Yobany Londono is a 37 year old female who presents today for CC of sinus pressure. This started over 1 week. Has tried otc medication. Symptoms are worsened by nothing. Risk factors hx of copd, multiple sick exposures at home. 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 - ORAL SURGERY PROCEDURE teeth removed - PAST SURGICAL HISTORY OF TM tubes - REMOVAL OF TONSILS,ANDlt;14 Y/O Tonsillectomy ALLERGIES Seasonal Allergies; Penicillins MEDICATIONS doxycycline monohydrate 100 mg tablet Take 1 tablet by mouth twice daily for 10 days. budesonide-formoterol (SYMBICORT) 160-4.5 mcg/actuation inhaler Inhale 2 Puffs as instructed twice daily. albuterol (PROVENTIL) 2.5 mg /3 mL (0.083 %) nebulizer solution inhale the contents of 1 vial via nebulizer four times daily over 5-15 minutes omeprazole (PRILOSEC) 20 mg capsule Take 1 capsule by mouth daily before breakfast. 1/2 hr before meal. albuterol HFA (VENTOLIN HFA) 90 mcg/actuation inhaler Inhale 2 Puffs as instructed every 6 hours as needed for Wheezing/Shortness of Breath. meloxicam (MOBIC) 15 mg tablet Take 1 tablet by mouth once daily. Take with food. acetaminophen (TYLENOL) 500 mg tablet EVERY 6 HOURS NEEDED citalopram (CELEXA) 40 mg tablet Take 1 tablet by mouth once daily. fluticasone (FLONASE) 50 mcg/actuation nasal spray Use 2 Sprays in each nostril once daily. Rinse mouth after use. vitamin b complex (B COMPLETE) tab Take 1 tablet by mouth once daily. loratadine (CLARITIN) 10 mg tablet Take 1 tablet by mouth once daily as needed. FOR ALLERGY SYMPTOMS multivitamin tablet Take 1 tablet by mouth once daily. ibuprofen (MOTRIN) 600 mg tablet Take 1 tablet by mouth every 6 hours as needed for Pain. FAMILY HISTORY Problem Relation Age of Onset - Adopted: Yes - Diabetes Father - Hypertension Mother - Cancer Mother liver cancer - osteoarthritis [OTHER] Mother - Heart Maternal Grandmother - Cancer Maternal Grandmother - Diabetes Paternal Grandfather - Prostate Cancer Paternal Grandfather - Stroke Paternal Grandmother - Heart Sister hole in heart - Breast Cancer Sister - Alcohol/Drug Sister - osteochondroma [OTHER] Son - osteochondroma [OTHER] Son Social History Substance Use Topics - Smoking status: Current Every Day Smoker Packs/day: 0.30 Years: 15.00 Types: Cigarettes - Smokeless tobacco: Never Used Comment: Trying to quit - Alcohol use No Comment: rare wine cooler- not while Review of Systems Constitutional: Negative for chills, fever and weight loss. HENT: Positive for congestion and sore throat. Negative for ear pain and nosebleeds. Respiratory: Positive for cough. Negative for shortness of breath and wheezing. Musculoskeletal: Negative for neck pain. Objective Physical Exam Constitutional: She is oriented to person, place, and time and well-developed, well-nourished, and in no distress. Non-toxic appearance. She does not have a sickly appearance. No distress. HENT: Head: Normocephalic and atraumatic. Right Ear: Hearing, tympanic membrane, external ear and ear canal normal. Left Ear: Hearing, tympanic membrane, external ear and ear canal normal. Nose: Nose normal. Mouth/Throat: Uvula is midline, oropharynx is clear and moist and mucous membranes are normal. Eyes: Conjunctivae and lids are normal. Pupils are equal, round, and reactive to light. Right eye exhibits no discharge. Left eye exhibits no discharge. No scleral icterus. Neck: Trachea normal and normal range of motion. Neck supple. Cardiovascular: Normal rate, regular rhythm and normal heart sounds. Pulmonary/Chest: She is in respiratory distress. She has decreased breath sounds in the right lower field and the left lower field. Lymphadenopathy: She has no cervical adenopathy. Neurological: She is alert and oriented to person, place, and time. Skin: No rash noted. She is not diaphoretic. ASSESSMENT/PLAN: 1. Low oxygen saturation - ICD9: 790.91, ICD10: R79.81 After nebulizer, O@ remained low, 88%, and respirations in the 30's -I recommend ER evaluation, treatment -report called [facility] ER MD -wants to drive pov - ALBUTEROL SULFATE 2.5 MG/3 ML (0.083 %) SOLUTION FOR NEBULIZATION Sridhar Truong APRN.RAN Referring Provider: SELF [200] Allergies As of Date: 02/22/2018 Noted Allergy Reaction SEASONAL ALLERGIES 05/04/2013 5 - Intolerance PENICILLINS 02/11/2007 2 - Rash 11 - Vomiting Comments: JUST SENSITIVITY TO PCN PER DR FAJARDO Date Reviewed: 02/22/2018 Reviewed by: Sridhar Truong - Fully Assessed Reason for Visit: Nasal Congestion [235] Cmt: congestion Primary Visit Diagnosis:Low oxygen saturation [R79.81] Order(s):albuterol (PROVENTIL) 2.5 mg /3 mL (0.083 %) nebulizer solutionUse 3 mL via nebulizer one time only for 1 dose. Use over 5-15minutes.Disp: 3 mLRfl: 0 Prescriptions as of 02/22/2018 Sig: ALBUTEROL SULFATE 2.5 MG/3 ML* Use 3 mL via nebulizer one ti* DOXYCYCLINE MONOHYDRATE 100 M* Take 1 tablet by mouth twice * BUDESONIDE-FORMOTEROL HFA 160* Inhale 2 Puffs as instructed * ALBUTEROL SULFATE 2.5 MG/3 ML* inhale the contents of 1 vial* OMEPRAZOLE 20 MG CAPSULE,GHASSAN* Take 1 capsule by mouth daily* ALBUTEROL SULFATE HFA 90 MCG/* Inhale 2 Puffs as instructed * MELOXICAM 15 MG TABLET Take 1 tablet by mouth once d* ACETAMINOPHEN 500 MG TABLET EVERY 6 HOURS NEEDED CITALOPRAM 40 MG TABLET Take 1 tablet by mouth once d* FLUTICASONE 50 MCG/ACTUATION * Use 2 Sprays in each nostril * VITAMIN B COMPLEX TABLET Take 1 tablet by mouth once d* LORATADINE 10 MG TABLET Take 1 tablet by mouth once d* MULTIVITAMIN TABLET Take 1 tablet by mouth once d* IBUPROFEN 600 MG TABLET Take 1 tablet by mouth every * Problem List As Of Date 02/22/2018 Noted Resolved Pulpitis [K04.01] INVALID FOR* OTHER LUNG DISEASE NEC [J98.4] INVALID FOR*03/09/2008 Tobacco Use Disorder [F17.200] INVALID FOR* Acute Bronchitis [J20.9] INVALID FOR* Chronic Airway Obstruction, not Elsewhere Class*INVALID FOR* Morbid obesity [E66.01] Back pain [M54.9] More... Osteochondroma, multiple [Q78.6] More... Asthma [J45.909] Depression with anxiety [F41.8] Asthma exacerbation [J45.901] INVALID FOR* SOB (shortness of breath) [R06.02] INVALID FOR* Fibromyalgia [M79.7] INVALID FOR* History of section [Z98.891] INVALID FOR* More... Obesity in [O99.210] INVALID FOR* More... Supervision of normal [Z34.90] INVALID FOR* Family history of seizure disorder [Z82.0] INVALID FOR* More... Encounter for sterilization [Z30.2] INVALID FOR* More... cardiac anomaly affecting , ante*INVALID FOR* [Z34.90] INVALID FOR* Prescriptions ordered this encounter Disp Refills Start End ALBUTEROL SULFATE 2.5 MG/3 ML (0.083* 3 mL 0 02/22/2018 02/22/2018 Class: In Office Route: NEBULIZATION Sig: Use 3 mL via nebulizer one time only for 1 dose. Use over 5-15minutes. Encounter Status:Closed by SRIDHAR TRUONG CNP on 02/22/18 CHEST 2 VIEWS Observed: 02/15/2018 Status: F Source: [facility] 4:08 AM HEALTH SYSTEM REPOSITORY Performed at [facility] APPROVED BY: ABDIRASHID GUIDRY MD EXAMINATION: 2 VIEW CHEST RADIOGRAPH (PA/AP AND LATERAL) Clinical History: Cough M: XC2_4 Comparison: 08/09/2017, 11/27/2017 RESULT: Lines, tubes, and devices: None Lungs and pleura: No confluent infiltrate, large pleural effusion or pneumothorax. Interstitial prominence again noted, unchanged. Cardiomediastinal silhouette: Stable and within normal limits. Other: No acute bony abnormality identified. Irregularity of the left fifth rib again noted anteriorly. Subpleural calcification at the left base again noted. IMPRESSION: No significant acute radiographic abnormality of the chest. No significant interval change. ED PROV NOTE Observed: 02/15/2018 Status: COMPLETED Source: [place] 3:12 AM CLINIC [facility] REPOSITORY HNO ID: [id number] Author: Chayo Gray MD Service: Emergency Medicine Author Type: Physician Type: ED Provider Notes Filed: 02/15/2018 4:44 AM Note Text: ED Provider Note Patient Name: Yobany Londono SERVICE DATE: 02/15/18 History Patient presents with: Cough Upper Respiratory Infection Patient is a 37 year old female presenting with cough. Cough Cough characteristics: Productive Sputum characteristics: Brown Severity: Moderate Onset quality: Sudden Duration: 1 hour Timing: Intermittent Progression: Partially resolved Chronicity: Recurrent Smoker: yes Context: sick contacts and upper respiratory infection Context: not animal exposure, not exposure to allergens, not fumes, not occupational exposure, not smoke exposure, not weather changes and not with activity Relieved by: Beta-agonist inhaler Worsened by: Nothing Ineffective treatments: None tried Associated symptoms: chills, rhinorrhea, sinus congestion, sore throat and wheezing Associated symptoms: no chest pain, no ear fullness, no ear pain, no fever, no myalgias and no rash Risk factors: no chemical exposure, no recent infection and no recent travel PAST MEDICAL HISTORY Diagnosis Date - Arthritis - Back pain since epidural 2001 - Depression with anxiety - Fibromyalgia shoulders - Hypertension diet controlled - Morbid obesity (HCC) - Osteochondroma, 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 - ORAL SURGERY PROCEDURE teeth removed - PAST SURGICAL HISTORY OF TM tubes - REMOVAL OF TONSILS,<12 Y/O Tonsillectomy FAMILY HISTORY Problem Relation Age of Onset - Adopted: Yes - Diabetes Father - Hypertension Mother - Cancer Mother liver cancer - osteoarthritis [OTHER] Mother - Heart Maternal Grandmother - Cancer Maternal Grandmother - Diabetes Paternal Grandfather - Prostate Cancer Paternal Grandfather - Stroke Paternal Grandmother - Heart Sister hole in heart - Breast Cancer Sister - Alcohol/Drug Sister - osteochondroma [OTHER] Son - osteochondroma [OTHER] Son Social History Social History Main Topics - Smoking status: Current Every Day Smoker Packs/day: 0.30 Years: 15.00 Types: Cigarettes - Smokeless tobacco: Never Used Comment: Trying to quit - Alcohol use No Comment: rare wine cooler- not while - Drug use: No - Sexual activity: Yes Partners: Male control/ protection: None ALLERGIES Allergen Reactions - Seasonal Allergies Intolerance - Penicillins Rash, Vomiting JUST SENSITIVITY TO PCN PER DR FAJARDO Review of Systems Constitutional: Positive for chills. Negative for activity change and fever. HENT: Positive for rhinorrhea and sore throat. Negative for ear pain. Eyes: Negative for photophobia and visual disturbance. Respiratory: Positive for cough and wheezing. Cardiovascular: Negative for chest pain. Gastrointestinal: Negative for abdominal pain, constipation, nausea and vomiting. Endocrine: Negative for polydipsia, polyphagia and polyuria. Musculoskeletal: Negative for back pain and myalgias. Skin: Negative for color change, pallor, rash and wound. Allergic/Immunologic: Negative for environmental allergies, food allergies and immunocompromised state. Neurological: Negative for syncope, weakness and numbness. Psychiatric/Behavioral: Negative for confusion and self-injury. The patient is not nervous/anxious. Physical Exam BP 126/58 Pulse 114 Temp (Src) 98.7 (Temporal Artery) Resp 22 Ht 5' 1 (1.55m) Wt 289 lb (131.1kg) SpO2 92% BMI 54.63 kg/(m2). Physical Exam Constitutional: She is oriented to person, place, and time. No distress. obese HENT: Head: Normocephalic and atraumatic. Mouth/Throat: Oropharynx is clear and moist. Eyes: Conjunctivae and EOM are normal. Right eye exhibits no discharge. Left eye exhibits no discharge. No scleral icterus. Neck: Normal range of motion. Neck supple. No tracheal deviation present. Cardiovascular: Normal rate, regular rhythm and normal heart sounds. Pulmonary/Chest: Effort normal. No stridor. No respiratory distress. She has wheezes. She exhibits no tenderness. Musculoskeletal: Normal range of motion. She exhibits no edema, tenderness or deformity. Neurological: She is alert and oriented to person, place, and time. Skin: Skin is warm and dry. No rash noted. She is not diaphoretic. No erythema. No pallor. Psychiatric: She has a normal mood and affect. Her behavior is normal. Judgment and thought content normal. Nursing note and vitals reviewed. will start doxy cycline and prednisone. No CXR findings per radiology read . smoking cessation Diagnostic Testing ED Labs Ordered and Reviewed - No data to display Procedures Medical Decision Making / ED Course ED Course No diagnosis found. Plan The Patient was DISCHARGED: Counseled patient and family regarding suspected diagnosis AND need for follow-up. Discharged home with verbal and written instructions. They were instructed to return as needed for persistent or worsening symptoms or any new concerns. Condition at time of disposition: improved and stable SIGNATURE: MD Chayo Zaldivar MD 02/15/18441 Chayo Gray MD 02/15/18 0444 EMERGENCY DEPARTMENT Observed: 02/12/2018 Status: F Source: [place] SUMMARY 4:05 AM [facility] [place] [facility] Medical Records Department [address] [place] [address] Emergency Department Summary 02/11/18 2240 MR#: [id number] Acct: [id number] Name: YOBANY LONDONO Rep #: [id number] : 1980 37 From: Rodri Ramirez MD PCP: Juany Holt MD Status: DEP ER - ER Visit Summary Date of Service: 02/11/18 Chief Complaint: [] Abdominal pain History of Present Illness: The patient is a 37 F with abdominal pain since 1 AM today. She woke up and felt some diffuse abdominal cramping after eating [employer]. She had 2 episodes of emesis almost 24 hours ago back to back the second having some blood streaks. It has not reoccurred. She had 2 episodes of loose diarrhea. She has never had a formal gastric ulcer or any previous GI problems. She uses Aleve and Pepto-Bismol with moderate relief and came in for further evaluation. Physical Examination: Vital signs reviewed General: Well-nourished well-developed Head: Normocephalic atraumatic Eyes: Pupils equal round and reactive to light extraocular movements intact ENT: TMs clear no hemotympanum no trauma Neck: Nontender full range of motion Cardiovascular: Regular rate rhythm no murmurs normal S1-S2 Respiratory: No distress clear to auscultation bilaterally chest nontender Abdomen: Soft nontender nondistended normal bowel sounds no masses Back: Nontender no CVA tenderness Extremities: Nontender active range of motion 4 extremities no trauma Skin: Normal color no trauma Neuro alert oriented cranial nerves II through XII intact normal strength sensation reflexes Test Results: [] Emergency Department Course and Treatment: The patient likely has a viral illness versus poisoning. She is nontoxic resting comfortably. She may have had a slight Angela-Pierce tear from a forceful vomiting episode last night that has not recurred. Do not feel she needs lab work or imaging. Given a dose of Bentyl and Zofran. She will follow-up with her doctor and eat a bland diet. Treatment Plan: [] Disposition: [] Impression: [] Vomiting Diarrhea Abdominal cramping This note was generated with [employer] dictation software. It may contain incorrect words, spelling, and punctuation that were not noted in review of the chart prior to signing ED Disposition - Plan for ED Patient: Chief Complaint: Abd Pain Referrals: Juany Holt MD [Primary Care Provider] - What to do if you have Problems For any increased pain, shortness of breath, bleeding, nausea or vomiting, chest pain, or any unexpected problems, contact your Primary Care Provider. Call [facility] ([phone]) or report to the closest Emergency Room. Call 911 if necessary. 02/12/18 0409 <Electronically signed by Rodri Ramirez MD> Date Rodri Ramirez MD Cosigner Signature (If Indicated): Date CC: Juany Holt MD DISCHARGE INSTRUCTION Observed: 02/12/2018 Status: F Source: [place] 4:05 AM [facility] [place] [facility] Medical Records Department [address] [place] [address] Discharge Instruction 02/11/18 2241 MR#: [id number] Acct: [id number] Name: YOBANY LONDONO Rep #: [id number] : 1980 37 From: Rodri Ramirez MD PCP: Juany Holt MD Status: DEP ER ED Disposition - Plan for ED Patient: Disposition: Home or Assisted Living Chief Complaint: Abd Pain Instructions: ED Food Poison Or Gastroenteritis Prescriptions: Ondansetron [Zofran Odt] 4 mg PO Q8H PRN PRN #10 tab PRN Reason: Nausea Dicyclomine HCl [Bentyl] 20 mg PO TIDAC #20 cap Referrals: Juany Holt MD [Primary Care Provider] - What to do if you have Problems For any increased pain, shortness of breath, bleeding, nausea or vomiting, chest pain, or any unexpected problems, contact your Primary Care Provider. Call [facility] ([phone]) or report to the closest Emergency Room. Call 911 if necessary. 02/12/18 0405 <Electronically signed by Rodri Ramirez MD> Date Rodri Ramirez MD Cosigner Signature (If Indicated): Date CC: Juany Holt MD PROGRESS Observed: 12/20/2017 Status: COMPLETED Source: [place] 8:19 AM CLINIC MA[facility] REPOSITORY HNO ID: [id number] Author: Bird Mccoy) RAN Lopez Service: (none) Author Type: Nurse Practitioner Type: Progress Notes Filed: 12/20/2017 8:46 AM Note Text: Chief Complaint Patient presents with: Cough HPI Yobany Londono is a 37 year old female who presents here today for Above Complaints. Patient presents to the office with complaints of a cough. Has been to the ER 4 times in the past few months for coughing, asthma exacerbations. Medical history is documented below, including being a current smoker. Complaints of wheezing, congestion for the past 3 months. Is currently taking her Dulera, which has not helped her symptoms. She was ordered Advair, but insurance did not cover. PA stated that she needs to fail on Dulera and Symbicort before they will approve Advair. Patient has a wet, productive cough. Mucus is green in color. No chest pain, fevers or chills. No shortness of breath. No eye, ear, or throat complaints. Complaints of nasal drainage, congestion. Has been using tylenol cold and sinus, which has helped with her night time cough, has broken up her cough. Also has been using albuterol as needed. Would like to receive influenza vaccine today. Past medical history, appointments, medications, allergies reviewed. 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 - ORAL SURGERY PROCEDURE teeth removed - PAST SURGICAL HISTORY OF TM tubes - REMOVAL OF TONSILS,<12 Y/O Tonsillectomy Family History FAMILY HISTORY Problem Relation Age of Onset - Adopted: Yes - Diabetes Father - Hypertension Mother - Cancer Mother liver cancer - osteoarthritis [OTHER] Mother - Heart Maternal Grandmother - Cancer Maternal Grandmother - Diabetes Paternal Grandfather - Prostate Cancer Paternal Grandfather - Stroke Paternal Grandmother - Heart Sister hole in heart - Breast Cancer Sister - Alcohol/Drug Sister - osteochondroma [OTHER] Son - osteochondroma [OTHER] Son Patient Allergies ALLERGIES Allergen Reactions - Seasonal Allergies Intolerance - Penicillins Rash, Vomiting JUST SENSITIVITY TO PCN PER DR FAJARDO Current Medications Current Outpatient Prescriptions on File Prior to Visit: omeprazole (PRILOSEC) 20 mg capsule Take 1 capsule by mouth daily before breakfast. 1/2 hr before meal. fluticasone-salmeterol (ADVAIR DISKUS) 500-50 mcg/dose dsdv Inhale 1 Puff as instructed twice daily. Rinse and gargle mouth with water after use. albuterol HFA (VENTOLIN HFA) 90 mcg/actuation inhaler Inhale 2 Puffs as instructed every 6 hours as needed for Wheezing/Shortness of Breath. meloxicam (MOBIC) 15 mg tablet Take 1 tablet by mouth once daily. Take with food. acetaminophen (TYLENOL) 500 mg tablet EVERY 6 HOURS NEEDED citalopram (CELEXA) 40 mg tablet Take 1 tablet by mouth once daily. albuterol (PROVENTIL) 2.5 mg /3 mL (0.083 %) nebulizer solution Use 3 mL via nebulizer four times daily. Inhale by nebulizer over 5- 15 minutes fluticasone (FLONASE) 50 mcg/actuation nasal spray Use 2 Sprays in each nostril once daily. Rinse mouth after use. vitamin b complex (B COMPLETE) tab Take 1 tablet by mouth once daily. loratadine (CLARITIN) 10 mg tablet Take 1 tablet by mouth once daily as needed. FOR ALLERGY SYMPTOMS multivitamin tablet Take 1 tablet by mouth once daily. ibuprofen (MOTRIN) 600 mg tablet Take 1 tablet by mouth every 6 hours as needed for Pain. No current facility-administered medications on file prior to visit. Social History Social History Marital status: Spouse name: Years of education: Number of children: Occupational History Occupation Employer Comment unemployed, disabi* Social History Main Topics Smoking status: Current Every Day Smoker Packs/day: 0.30 Years: 15.00 Types: Cigarettes Smokeless status: Never Used Comment: Trying to quit Alcohol use: No Comment: rare wine cooler- not while Drug use: No Sexual activity: Yes Partners with: Male control/protection: None Social History Narrative Mother 2011. Father needs her help. 2 sons. REVIEW OF SYSTEMS: as above ? Reviewed relevant PMHx, PSHx, Social Hx, current medications and allergies. EXAM: BP 106/77 Pulse 74 Temp 36.4 ?C (97.6 ?F) (Tympanic) Wt 135.2 kg (298 lb) SpO2 98% BMI 56.31 kg/m2 General Appearance: Well appearing, alert, in no acute distress, well-hydrated, well nourished.. Skin: Skin color, texture, turgor normal, no suspicious rashes or lesions. Head: Normocephalic, no masses, lesions, tenderness or abnormalities. Eyes: Anicteric sclera. Pupils are equally round and reactive to light. Extraocular movements are intact. . Ears: External ears normal, canals clear. Nose/Sinuses: Nares normal, septum midline, mucosa normal, no drainage or sinus tenderness. Oropharynx: Lips, mucosa, and tongue normal, teeth and gums normal, oropharynx normal. Neck: Supple, no adenopathy; thyroid symmetric, normal size, no bruits. Lungs: Posterior lung carballo have expiratory and inspiratory wheezes. Heart: RRR without murmur, gallop, or rubs. No ectopy. Health Maintenance List INFLUENZA(1) due on 07/19/2017 PAP EVERY 5 YEARS due on 02/06/2018 HPV EVERY 5 YEARS due on 02/06/2018 TETANUS due on 05/23/2026 ONE PNEUMOVAX PRIOR TO AGE 65 Completed Data reviewed [place] ER encounters reviewed. 37 year old female here for INACTIVATED INFLUENZA VACCINE. [id number] Season Patient is identified by name and date of : Yes [] CONTRAINDICATIONS color enhanced section Age less than 6 months? No Allergy to eggs, chicken, chicken feathers, or chicken dander? No Allergy to thimerosal (a preservative) or formaldehyde? No History of severe reaction to any vaccine component or a previous dose of influenza vaccination? No History of Guillain-[place] Syndrome within 6 weeks after a previous influenza vaccine? No Current moderate or severe illness? No Current temperature greater or equal to 100.4F? No History of Bone Marrow Transplant in past 6 months or solid organ transplant in the past 3 months ? No [] VERIFICATION color enhanced section Was the answer Yes for any of the above contraindications? No contraindications present. Acceptable to proceed with vaccine. Patient/guardian agrees the above answers are true to the best of their knowledge? Yes Flu vaccine information sheet given? Yes See immunization activity in [facility] for details of immunizations adminstered today. Patient age: [age] year old For The 9425-4689 Flu Season 6-35 months old: Fluzone 0.25 ml - IM (Preservative Free) 3 years of age: Fluzone 0.5 ml - IM (Preservative Free) 3 years and older: Fluzone 0.5 ml- IM-(with Preservatives) 65+ years old: Fluzone High-Dose 0.5 ml - IM (Preservative Free) REMEMBER: If patient is less than 9 years of age and this is the first vaccine of Influenza to be received in any flu season, they should receive a second dose in one months time. ASSESSMENT/PLAN: 1. Moderate persistent asthma with exacerbation - ICD9: 493.92, ICD10: J45.41 (primary diagnosis) Moderate persistent Asthma acute excacerbation no respiratory distress - Continue current meds - Begin BUDESONIDE-FORMOTEROL HFA 160 MCG-4.5 MCG/ACTUATION AEROSOL INHALER - Treat with prednisone taper. - Avoidance of triggers recommended - If failure occurs, will order Advair as stated by PA. - Is not motivated to quit smoking at this time. 2. Sinobronchitis - ICD9: 473.9, 490, ICD10: J32.9, J40 - The patient should also be given OTC decongestants prn and OTC cough and cold meds as needed for the first 5-7 days of treatment. - Supportive care with plenty of fluids, rest, and analgesia prn. - Follow up in 3-5 days if symptoms persist or worsen. - PREDNISONE 10 MG TABLET 3. Need for vaccination - ICD9: V05.9, ICD10: Z23 - INFLUENZA VACCINE QUADRIVALENT AGE 3 YRS PLUS + IM - No fever today, will proceed with immunization. Follow up as needed or if complications of fever, shortness of breath occur. Bird Lopez CNP ALLERGIES ALLERGIES DATE TYPE / NAME / CODE REACTION SEVERITY SOURCE CODE 10/30/2018 Drug Penicillins/F0010 Hives Unknown [facility] Allergy/41 00468(RXNORM) [facility] [id number]( Hospital OMED CT) Repository 05/04/2013 Environ/42 SEASONAL INTOLERANCE [facility] [id number]( ALLERGIES [facility] [place] OMED CT) Repository 02/11/2007 Drug PENICILLINS RASH Low [facility] Class/4195 [address] [place] [address](SNOM Repository ED CT) [id number] SEASONAL [facility] 06(SNOMED ALLERGIES [facility]) Repository [id number] PENICILLINS [facility] 06(SNOMED [facility]) Repository ENCOUNTERS ENCOUNTERS ADMIT/DISCHARGE ACCOUNT NUMBER ADMITTING ENCOUNTER LOCATION SOURCE CLASS 11/24/2018/11/24/19 [id number] Emergency [address] Other [place] Repository 11/24/2018/11/24/19 [id number] Emergency [address] MEDICAL Repository [facility]AKEDRoom: CIABed: 11/24/2018 [id number] Ambulatory [facility] MEDICAL Repository [place]AKGSC 11/20/2018/11/20/19 [id number] Ambulatory [address] Repository 11/20/2018/11/20/19 [id number] Ambulatory [address] MEDICAL Repository [place] [facility]:[id number] 11/17/2018/11/17/20 [id number] Emergency [address] Repository 11/07/2018/11/09/20 [id number] SAMIR, Inpatient [address] Repository 11/07/2018/11/09/20 [id number] Keith DAWSON Inpatient [address] MEDICAL Repository [place]: [id number]: 11/06/2018/11/06/20 [id number] Ambulatory [address] Main [place] Repository 11/05/2018/11/06/20 [id number] Ambulatory [address] Repository 10/31/2018/10/31/20 [id number] Emergency [address] Repository 10/31/2018/11/03/20 [id number] Ambulatory [place] 18 [facility] Main [place] Repository 10/30/2018/10/30/20 [id number] Emergency [place] Rickey 18 [facility] ding:ED Repository 10/03/2018/10/03/20 [id number] Emergency [place] 18 [facility] ding:ED Repository 09/27/2018/09/27/20 [id number] Emergency [place] Ric[place] 18 [facility] ding:ED Repository 09/23/2018/09/23/20 [id number] Emergency Barnhart Barnhart 18 [facility] ding:ED Repository 09/14/2018/09/14/20 [id number] Emergency Barn[place] Rickey 18 [facility] ding:ED Repository 09/05/2018/09/08/20 [id number] Ambulatory [place] [facility] [place] Repository 07/23/2018/07/23/20 [id number] Ambulatory [place] 18 [facility] Main [place] Repository 07/18/2018/07/22/20 [id number] Ambulatory [place] [facility] [place] Repository 07/11/2018/11/24/19 [id number] Ambulatory [place] [facility] [place] Repository 07/11/2018/07/22/20 [id number] Ambulatory [place] [facility] [place] Repository 06/27/2018/06/30/20 [id number] Ambulatory [place] 18 [facility] [place] Repository 06/27/2018/06/27/20 [id number] Ambulatory [place] [facility] [place] Repository 06/27/2018/10/30/20 [id number] Ambulatory [place] [facility] [place] Repository 06/27/2018/06/27/20 [id number] Ambulatory [place] [facility] [place] Repository 06/22/2018/06/23/20 [id number] Emergency Barnhart Barnhart 18 [facility] ding:ED Repository 06/20/2018/06/20/20 [id number] Ambulatory [place] [facility] [place] Repository 06/20/2018/06/23/20 [id number] Ambulatory [place] [facility] [place] Repository 06/20/2018/07/01/20 [id number] Ambulatory [place] [facility] [place] Repository 06/19/2018/06/27/20 [id number] Ambulatory [address] Main [place] Repository 04/15/2018/04/16/20 [id number] Ambulatory [address] [place] Repository 04/12/2018/04/12/20 [id number] Emergency Barnhart Barnhart [address] [place] [address] ding:ED Repository 03/28/2018/03/31/20 [id number] Ambulatory [address] Main [place] Repository 03/24/2018/03/24/20 [id number] Ambulatory [address] Main [place] Repository 03/21/2018/03/24/20 [id number] GADIEL, Inpatient [place] [address] [facility] Main [place] Repository 03/10/2018/03/11/20 [id number] Emergency [address] Other [place] Repository 03/07/2018 [id number] Ambulatory [facility] Repository 03/07/2018/03/10/20 [id number] Ambulatory [address] Main [place] Repository 02/22/2018/02/25/20 [id number] Ambulatory [address] [place] Repository 02/11/2018/02/12/20 [id number] Emergency Rickey Barnhart [address] [place] [address] ding:ED Repository 12/20/2017/12/25/19 [id number] Ambulatory [address] Repository PAYERS PAYERS ENCOUNTER GUARANTOR PAYER SUBSCRIBER SOURCE 11/24/2018 CRYSTAL L Primary CRYSTAL L [facility] HOLIDAYDOB: [facility] MEDICAIDPolicy [id number] Repository [place] Number: [place], [place] [id number]: (330) Date: () 11/24/2018 CRYSTAL L Primary CRYSTAL L [facility] HOLIDAYDOB: [facility] MEDICAIDPolicy [id number] Repository [place] Number: [place], [place] [id number]: (330) Date: 410 () 11/20/2018 CRYSTAL L Primary CRYSTAL L [facility] HOLIDAYDOB: Insurance:[facility] HOLIDAYDOB: [facility] MEDICAIDPolicy [id number] Repository [place] Number: [place], [place] [id number]: (330) Date: [phone] () 11/07/2018 CRYSTAL L Primary CRYSTAL L [facility] HOLIDAYDOB: Insurance[facility] MEDICAIDPolicy [id number] Repository [place] Number: [place], [place] [id number]: (330) Date: [phone] () 10/30/2018 TRUDI E Primary CRYSTAL L Barnhart [id number] [place] Insurance:BUCKE HOLIDAYDOB: [facility] [id number] Hospital [address]Bnn: (330) PLANPolicy Number: Repository [phone] () [id number] Date:2875-35-29IW [address] [address]LY: 10/30/2018 Secondary NOT GIVENUNK Barnhart Insurance:SELF PAY [facility] Number: Effective Repository Date:2018-10-30 10/03/2018 TRUDI E Primary CRYSTAL L Barnhart [id number] [place] Insurance:[place] HOLIDAYDOB: [facility] [id number] Hospital [address]Vel: (330) PLANPolicy Number: Repository [phone] () [id number] Date:[id number] [address]NO: 10/03/2018 Secondary NOT GIVENUNK Barnhart Insurance:SELF PAY [facility] Number: Effective Repository Date:2018-10-03 09/27/2018 TRUDI E Primary CRYSTAL L Rickey [id number] [place] Insurance:[place] HOLIDAYDOB: [facility] [id number] Hospital [address]Die: (330) PLANPolicy Number: Repository [phone] () [id number] Date:2915-08-71[address] [address]MU: 09/27/2018 Secondary NOT GIVENUNK Rickey Insurance:SELF PAY [facility] Effective Repository Date:2018-09-27 09/23/2018 TRUDI E Primary CRYSTAL L Rickey [id number] [place] Insurance:[place] HOLIDAYDOB: [facility] [id number] [address]Tel: (313) PLANPolicy Number: Repository [phone] () [id number] Date:0062-39-76[address] [place] [address]TS: 09/23/2018 Secondary NOT GIVENUNK Rickey Insurance:SELF PAY [facility] Number: Effective Repository Date:2018-09-23 09/14/2018 TRUDI E Primary CRYSTAL L Rickey [id number] [place] Insurance:[place]E HOLIDAYDOB: [facility] [id number] [address]Tel: (313) PLANPolicy Number: Repository [phone] () [id number] Date:7947-41-49[address] [place] [place] [address]JY: 09/14/2018 Secondary NOT GIVENUNK Barnhart Insurance:SELF PAY [facility] Number: Effective Repository Date:2018-09-14 06/22/2018 Trudi E Primary CRYSTAL L Barnhart [id number] [place] Insurance:[place]E HOLIDAYDOB: [facility] [id number] Hospital [address]Hpw: (313) PLANPolicy Number: Repository [phone] () [id number] Date:3880-68-00QF [address] [address]XR: 06/22/2018 Secondary NOT GIVENUNK Rickey Insurance:SELF PAY [facility] Number: Effective Repository Date:2018-06-22 04/12/2018 Trudi E Primary CRYSTAL L Rickey [id number] [place] Insurance:[facility]E [facility] [id number] [place] [address]Tel: ([phone]) PLANPolicy Number: Repository [phone] () [id number] Date:6035-12-42[address] [address]WR: 04/12/2018 Secondary NOT GIVENUNK Barnhart Insurance:SELF PAY [facility] Number: Effective Repository Date:2018-04-12 02/11/2018 Trudi E Primary CRYSTAL L Barnhart [id number] [place] [facility]: [facility] [id number] [address]Tel: (330) PLANPolicy Number: Repository [phone] () [id number] Date:7785-83-82[address] [place] [address]JO: 02/11/2018 Secondary NOT GIVENUNK Rickey Insurance:SELF PAY [facility] Number: Effective Repository Date:2018-02-11
== END 2018-10-30 23:06 | disposition home or self-care (01) ==
LOC: ED 23:05
PROVIDERS: Emergency Provider Emergency Medicine; Family Provider Family Medicine; PCP Family Medicine
DX: G89.18 Other acute postprocedural pain (principal)
CPT/HCPCS: 99283

== ENCOUNTER 2019-01-16 19:05 | Emergency (ER) | payer MEDICAID, SELFPAY ==
[2019-01-16 19:07] VITALS: BP 129/69; PULSE 74; RESP 22; TEMP 36.3; O2SAT 95; BMI 52.4
[2019-01-16 19:47] VITALS: PULSE 76; RESP 20
[2019-01-16] MEDS: Ipratropium/Albuterol Sulfate 3 ML AMPUL.NEB INHALATION (19:47)
--- NOTE | 2019-01-16 20:00 | RAD_ITS ---
STUDY: X-RAY CHEST REASON FOR EXAM: Female, 38 years old. Cough, SOB. TECHNIQUE: PA and lateral chest. COMPARISON: 09/27/2018. FINDINGS: The lungs are clear and expanded. There is no demonstrated pleural abnormality. Normal size heart. Normal mediastinum and fatoumata. Normal visualized pulmonary arteries. Normal visualized aortic arch and descending thoracic aorta. Normal visualized thoracic spine. Normal visualized ribs, clavicles, and shoulders. There is no demonstrated abnormality of the visualized soft tissue structures of the upper abdomen. RAD/Chest PA and Lateral IMPRESSION: Normal x-ray examination of the chest. Electronically Signed: Kiarra Villanueva MD at 21:00 EST Tel , Service support ,
[2019-01-16] MEDS: Acetaminophen 500 MG Tablet 1000 MG PO (20:12)
[2019-01-16] MEDS: predniSONE 20 MG Tablet 60 MG PO (20:12)
--- NOTE | 2019-01-16 21:12 | ED.DCSUM_ITS ---
- ER Visit Summary Date of Service: 01/16/19 Chief Complaint: Cough History of Present Illness: The patient is a [address] Holt. She reports she has a cough began 8 days ago. Is productive green sputum without blood. She reports she had mild shortness of breath and has been wheezing. She is been using her albuterol with transient relief. Patient complains of subjective fever and chills. She kind of has a sore throat. She reports that she has abdominal pain with coughing only. She states that she has a headache is 7 out of 10 severity. She does have a history of similar headaches. Physical Examination: Vitals: Stable. Afebrile. General: Well-nourished and well-developed. Head: Normocephalic atraumatic. Neck: Supple, no lymphadenopathy. No JVD. Nontender. Cardiovascular: Regular rate and rhythm. No murmurs. Respiratory: No respiratory distress. Mild wheezing bilaterally with good air movement. Abdominal: Soft, nontender, nondistended, normal bowel sounds. No guarding, rebound, or peritoneal signs. Back: Nontender. Extremities: Nontender, no edema. Skin: Normal color, no rash. Neurologic: Alert and oriented ?3. Cranial nerves II through XII are intact. Normal strength and sensation. Psych: Normal affect. Test Results: Chest x-ray shows no acute disease. Influenza is negative. Emergency Department Course and Treatment: Patient was treated albuterol Atrovent aerosols. She was given prednisone p.o. She is resting comfortably. Repeat exam shows her lungs to be clear. Treatment Plan: Patient will be discharged 5-day burst of prednisone. Instru cted to push fluids. Use Tylenol and/or ibuprofen for pain. Follow-up her primary care physician in 3-5 days if not improving. Return to the emergency department for any worsening symptoms. Disposition: To home in improved and stable condition. Impression: 1. URI. 2. Asthma exacerbation. This note was generated with [employer] dictation software. It may contain incorrect words, spelling, and punctuation that were not noted in review of the chart prior to signing ED Disposition - Plan for ED Patient: Disposition: Home or Assisted Living Instructions: ED Upper Resp Infec No Abx Tx Prescriptions: Prednisone [Deltasone] 60 mg PO DAILY #15 tablet Referrals: Ko Holt MD [Primary Care Provider] - 3-5 Days if not improving
[2019-01-16 21:46] VITALS: RESP 18
== END 2019-01-16 21:47 | disposition home or self-care (01) ==
PROVIDERS: Emergency Provider Emergency Medicine; Family Provider Family Medicine; PCP Family Medicine
DX: J45.901 Unspecified asthma with (acute) exacerbation (principal); J06.9 Acute upper respiratory infection, unspecified; Z72.0 Tobacco use
CPT/HCPCS: 71046; 87804; 94640; 99283

== ENCOUNTER 2019-01-28 22:12 | Emergency (ER) | payer MEDICAID, SELFPAY ==
[2019-01-28 22:13] VITALS: BP 129/78; PULSE 90; RESP 18; TEMP 36.1; O2SAT 95; BMI 51.8
[2019-01-28 23:25] LABS: Bacteria 0 SEEN /hpf (None Seen); Mucous, Urine 0 SEEN /hpf (<or=2+)
[2019-01-28 23:28] LABS: Color, Urine Yellow (Yellow); Glucose, Dipstick Normal (Normal); Ketone-Dipstick Negative (Negative); Leukocyte Esterase-Dipstick 100 /ul (Negative); Nitrite-Dipstick Negative (Negative); Occult Blood-Urine 250 /ul (Negative); Protein-Dipstick 15 mg/dl (Negative); Urine Bilirubin Dipstick Negative (Negative); Urine Clarity Sl. Cloudy (Clear); Urine Urobilinogen Normal (Normal)
[2019-01-28 23:34] LABS: Squamous Epithelial Cells - UA 0-5 SEEN /hpf (5-10)
[2019-01-28 23:35] LABS: Red Blood Cells-Urine 50-100 SEEN /hpf (0-5)
[2019-01-28 23:36] LABS: White Blood Cells 0-5 SEEN /hpf (0-5)
[2019-01-28 23:40] LABS: Absolute Lymphocyte Count 2.82 X10^3/ul (0.83-4.51); Absolute Neutrophil Count 8.6 X10^3/uL (2.0-7.7); Basophil# 0.07 X10^3/uL; Basophil% 0.6 % (0-1); Eosinophil# 0.22 X10^3/uL; Eosinophils% 1.7 % (0-5); Hematocrit 44.8 % (37-47); Hemoglobin 13.8 g/dl (12.0-15.0); Lymphocyte # 2.82 X10^3/ul (4.0); Lymphocyte % 22.2 % (19-41); Mean Corp Hgb Conc 30.8 g/gl (32-36); Mean Corpuscular Hgb 28.7 pg (27.0-32.0); Mean Corpuscular Volume 93.1 fL (81-99); Mean Platelet Vol. 11.4 fl (6.2-12.0); Monocyte# 1.01 X10^3/uL; Monocyte% 7.9 % (0-10); Neutrophil # 8.55 X10^3/uL (2.7-7.7); Neutrophil % 67.2 % (47-70); POSITIVE COUNT NO; POSITIVE DIFFERENTIAL NO; POSITIVE MORPHOLOGY NO; Platelet Count 244 K/mm3 (150-450); RBC Distribution Width CV 14.8 % (11.6-14.6); RBC Distribution Width SD 48.7 fl (35.1-43.9); Red Blood Count 4.81 M/mm3 (4.2-5.4); White Blood Count 12.7 K/mm3 (4.4-11.0)
[2019-01-28 23:52] LABS: Anion Gap 4 (5-15); BUN 15 mg/dL (7-18); BUN/Creat Ratio 15.9 RATIO (10-20); Calcium,Total 8.6 mg/dL (8.5-10.1); Chloride 105 mmol/L (98-107); Creatinine, Serum 0.94 mg/dL (0.55-1.02); EST Glomerular Filtration Rate 71 mL/min (>60); Est Glom Filt Rate - Afr Amer 86 mL/min (>60); Estimated Creatinine Clearance 62.43 ml/min; Glucose 84 mg/dL (74-106); Potassium 4.1 mmol/L (3.5-5.1); Sodium Level 139 mmol/L (136-145)
[2019-01-28 23:59] LABS: Pregnancy, Serum, hCG Quali. NEGATIVE Negative (0-9 Nonpreg)
--- NOTE | 2019-01-29 00:35 | CT_ITS ---
STUDY: CT ABDOMEN AND PELVIS WITHOUT CONTRAST REASON FOR EXAM: Female, 38 years old. Mid abdominal pain since yesterday. Patient has elevated white count. RADIATION DOSAGE (If Supplied By Facility): CTDIvol = ( 24.09 ) mGy, DLP = ( 1125.54 ) mGycm TECHNIQUE: Transaxial images were obtained from the dome of the diaphragm to the symphysis pubis without oral contrast, and without intravenous contrast. Sagittal and coronal images were reconstructed. Individualized dose optimization techniques were used for this CT. COMPARISON: CT of the abdomen and pelvis dated September 27, 2018. FINDINGS: The visualized lung bases are unremarkable. There is an exostosis arising from a left-sided rib. This is probably secondary to previous trauma and is unchanged since the previous CT. Visualized heart is within normal limits. There is hepatomegaly with diffuse hepatic enlargement. The liver measures approximately 19.8 cm in greatest dimension. There appear to be multiple noncalcified gallstones. Normal spleen. Normal pancreas. Normal bilateral adrenal glands. Normal right kidney. Normal left kidney. Normal visualized stomach. There is no evidence for dilated bowel, ascites or pneumoperitoneum. The small bowel has a grossly normal appearance. Stool is visible throughout the colon with scattered diverticula. There is non-visualization of the appendix. Normal abdominal aorta. There is venous distention of the inferior vena cava (IVC). Normal retroperitoneum. Normal urinary bladder. Normal visualized uterus. Normal osseous structures. CT/Abdomen/Pelvis without Cont IMPRESSION: 1. No CT evidence of acute intra-abdominal disease. 2. Hepatomegaly. 3. Questionable cholelithiasis. 4. Multiple ventral hernias as described. Electronically Signed: Paula Caraballo MD at 2:23 EDT , Service support ,
[2019-01-29 00:50] LABS: Lipase 144 U/L (73-393)
[2019-01-29 00:54] LABS: AST(SGOT) 19 U/L (15-37); Alanine Aminotransfer ALT/SGPT 23 U/L (13-56); Albumin, Serum 3.1 g/dL (3.2-5.0); Alkaline Phosphatase 55 U/L (45-117); Bilirubin, Direct 0.12 mg/dL (0.00-0.30); Globulin 4.1 g/dL (2.2-4.2); Protein, Total 7.2 g/dL (6.4-8.2)
[2019-01-29] MEDS: Ondansetron 4 MG/2 ML Vial IV (00:58)
[2019-01-29] MEDS: Ketorolac 30 MG/ML Syringe IV (00:58)
[2019-01-29] MEDS: 0.9% Normal Saline 1,000 ML 999 ML IV (00:58)
[2019-01-29 01:02] VITALS: BP 121/76; PULSE 67; RESP 16; O2SAT 96
--- NOTE | 2019-01-29 02:47 | ED.DCSUM_ITS ---
- ER Visit Summary Date of Service: 01/29/19 Chief Complaint: Abdominal pain History of Present Illness: The patient is a 38 F who presents with abdominal pain. She complains of epigastric and right upper quadrant abdominal pain since yesterday. No nausea or vomiting. She is also had some diarrhea for 3-4 days. No fevers. She started her menstrual period 2 days ago which is heavier. But her pain is all upper. Physical Examination: Afebrile vitals normal Resting comfortably no distress Moist mucous membranes Heart regular rate and rhythm Respiratory distress Abdomen soft nondistended Patient has right upper quadrant and epigastric pain No guarding no rebound no Cook's sign Test Results: White count is 12.7. Chemistries unremarkable including hepatic function. Lipase is normal. Urinalysis shows blood otherwise normal. She is on her menstrual period. is negative. CT of the abdomen and pelvis shows no acute disease, possible cholelithiasis. Emergency Department Course and Treatment: Patient was treated here with Toradol and Zofran. She is improved on reevaluation. She does likely have cholelithiasis. Her symptoms could be consistent with biliary colic. She does not have signs of acute cholecystitis. She was referred to a surgeon for outpatient follow-up. She understands to return for new or worsening symptoms. Treatment Plan: [] Disposition: Discharge Impression: Biliary colic This note was generated with [employer] dictation software. It may contain incorrect words, spelling, and punctuation that were not noted in review of the chart prior to signing ED Disposition - Plan for ED Patient: Referrals: Ko Holt MD [Primary Care Provider] -
--- NOTE | 2019-01-29 02:47 | ED.DEP ---
ED Disposition - Plan for ED Patient: Instructions: ED Abdominal Pain Gallstone Poss Referrals: Ko Holt MD [Primary Care Provider] - Chris Paredes MD [STAFF PHYSICIAN] -
[2019-01-29 02:57] VITALS: BP 119/78; PULSE 80; RESP 16; O2SAT 100
== END 2019-01-29 02:57 | disposition home or self-care (01) ==
PROVIDERS: Emergency Provider Emergency Medicine; Family Provider Family Medicine; PCP Family Medicine
DX: K80.50 Calculus of bile duct without cholangitis or cholecystitis without obstruction (principal); E66.9 Obesity, unspecified; K21.9 Gastro-esophageal reflux disease without esophagitis; M79.7 Fibromyalgia; Z72.0 Tobacco use; Z79.51 Long term (current) use of inhaled steroids; Z79.899 Other long term (current) drug therapy
CPT/HCPCS: 74176; 80048; 80076; 81001; 83690; 84703; 85025; 96361; 96374; 96375; 99283; J7030; A4216; J2405

== ENCOUNTER 2019-04-11 22:02 | Emergency (ER) | payer MEDICAID, SELFPAY ==
[2019-04-11 22:03] VITALS: BP 106/65; PULSE 77; RESP 16; TEMP 36.6; O2SAT 95; BMI 52.8
--- NOTE | 2019-04-11 22:23 | ED.DCSUM_ITS ---
- ER Visit Summary Date of Service: 04/11/19 Chief Complaint: Cough, wheezing and shortness of breath History of Present Illness: The patient is a 38 F history of asthma and fibromyalgia. No prior history of DVT or PE. No recent travel, surgery, mobilization or hemoptysis. No chest pain. Patient states the last 4 days she has had a cough now with greenish sputum. With wheezing and shortness of breath. She denies any nausea, vomiting, diarrhea or fever. She has had similar episodes before with her asthma. Physical Examination: Vital signs are stable. And afebrile. Pulse ox 95% on room air no hypoxia. No distress. HEENT exam TMs are unremarkable. Posterior pharynx moist and pink. No erythema or drooling. No stridor. Neck nontender. No lymphadenopathy. Lungs prolonged expiratory phase bilaterally. Expiratory wheezing intermittently. Dry cough. No rhonchi. No rales. Heart regular rate and rhythm rate about 80 no murmur. Abdomen is obese but soft and nontender normal bowel sounds no peritoneal signs. Patient is moving all 4 extremities. Calves are nontender without edema or cords. Neurologically she is awake alert with no focal motor deficits. Test Results: None Emergency Department Course and Treatment: History and exam are consistent with bronchitis with exacerbation of asthma. Treated with DuoNeb and albuterol aerosol treatments. P.o. prednisone. Repeat exam at 22:56 PM she is doing well. Again I encouraged her strongly to stop smoking. Treatment Plan: Prednisone 40 mg a day for 1 week. Use her inhaler as needed and her aerosols at home as needed. Follow-up with her PCP. Return if worse. Disposition: Discharge Impression: Acute asthmatic bronchitis This note was generated with [employer] dictation software. It may contain incorrect words, spelling, and punctuation that were not noted in review of the chart prior to signing ED Disposition - Plan for ED Patient: Disposition: Home or Assisted Living Instructions: ED Bronchitis Asthmatic Prescriptions: Albuterol Aerosols [Ventolin Aerosols] 2.5 mg INHALATION Q4H PRN #25 vial Referrals: Ko Holt MD [Primary Care Provider] - 3-5 Days if not improving Additional Instructions: Absolutely positively need to stop smoking 11 Prednisone 40 mg a day until gone. Use your inhalers and nebulizers as needed. Follow-up with your doctor if not improving return to ER feeling worse.
[2019-04-11] MEDS: predniSONE 20 MG Tablet 60 MG PO (22:24)
--- NOTE | 2019-04-11 22:26 | DCINST.ED_ITS ---
ED Disposition - Plan for ED Patient: Disposition: Home or Assisted Living Instructions: ED Bronchitis Asthmatic Prescriptions: Albuterol Aerosols [Ventolin Aerosols] 2.5 mg INHALATION Q4H PRN #25 vial Prednisone [Deltasone] 40 mg PO DAILY 7 Days tab Referrals: Ko Holt MD [Primary Care Provider] - 3-5 Days if not improving Additional Instructions: Absolutely positively need to stop smoking 11 Prednisone 40 mg a day until gone. Use your inhalers and nebulizers as needed. Follow-up with your doctor if not improving return to ER feeling worse.
[2019-04-11 22:32] VITALS: PULSE 74; RESP 18; O2SAT 98
[2019-04-11] MEDS: Albuterol 2.5 MG/3 ML VIAL.NEB. INHALATION ×2 (22:32)
[2019-04-11 23:07] VITALS: RESP 18; TEMP 35
== END 2019-04-11 23:07 | disposition home or self-care (01) ==
PROVIDERS: Emergency Provider Emergency Medicine; Family Provider Family Medicine; PCP Family Medicine
DX: J45.909 Unspecified asthma, uncomplicated (principal); M79.7 Fibromyalgia; Z72.0 Tobacco use; Z79.51 Long term (current) use of inhaled steroids
CPT/HCPCS: 94640; 99283

== ENCOUNTER 2019-07-22 23:38 | Emergency (ER) | payer MEDICAID, SELFPAY ==
[2019-07-22 23:42] VITALS: BP 136/83; PULSE 79; RESP 17; TEMP 36.7; O2SAT 96; BMI 52.4
[2019-07-23] LABS: Bacteria 0 SEEN /hpf (None Seen); Mucous, Urine 0 SEEN /hpf (<or=2+); Red Blood Cells-Urine 0 SEEN /hpf (0-5); Squamous Epithelial Cells - UA 0 SEEN /hpf (5-10); White Blood Cells 0 SEEN /hpf (0-5)
[2019-07-23 00:01] LABS: Absolute Neutrophil Count 7.4 X10^3/uL (2.0-7.7); Basophil% 0.8 % (0-1); Eosinophil# 0.26 X10^3/uL; Eosinophils% 2.1 % (0-5); Hematocrit 47.3 % (37-47); Hemoglobin 14.6 g/dL (12.0-15.0); Lymphocyte % 31.4 % (19-41); Mean Corp Hgb Conc 30.9 g/dL (32-36); Mean Corpuscular Hgb 28.9 pg (27.0-32.0); Mean Corpuscular Volume 93.7 fL (81-99); Mean Platelet Vol. 10.7 fl (6.2-12.0); Monocyte# 0.65 X10^3/uL; Monocyte% 5.2 % (0-10); NRBC Flagged by Analyzer 0 % (0-5); Neutrophil % 59.5 % (47-70); Platelet Count 254 K/mm3 (150-450); RBC Distribution Width CV 13.6 % (11.6-14.6); RBC Distribution Width SD 46.1 fl (35.1-43.9); Red Blood Count 5.05 M/mm3 (4.2-5.4); White Blood Count 12.4 K/mm3 (4.4-11.0)
[2019-07-23 00:06] LABS: Color, Urine Yellow (Yellow); Glucose, Dipstick Normal (Normal); Ketone-Dipstick 5 mg/dl (Negative); Leukocyte Esterase-Dipstick Negative /ul (Negative); Nitrite-Dipstick Negative (Negative); Occult Blood-Urine Negative /ul (Negative); Protein-Dipstick Negative (Negative); Urine Bilirubin Dipstick Negative (Negative); Urine Clarity Clear (Clear); Urine Urobilinogen Normal (Normal)
[2019-07-23 00:15] LABS: Anion Gap 2 (5-15); BUN 9 mg/dL (7-18); BUN/Creat Ratio 12.6 RATIO (10-20); Calcium,Total 8.9 mg/dL (8.5-10.1); Chloride 103 mmol/L (98-107); Creatinine, Serum 0.72 mg/dL (0.55-1.02); EST Glomerular Filtration Rate 97 mL/min (>60); Est Glom Filt Rate - Afr Amer 118 mL/min (>60); Estimated Creatinine Clearance 80.73 ml/min; Glucose 103 mg/dL (74-106); Sodium Level 139 mmol/L (136-145)
[2019-07-23 00:18] LABS: Internal QC Validated? YES +Cl - CLEAR BKGD; Pregnancy, Serum, hCG Quali. NEGATIVE Negative
[2019-07-23] MEDS: Ondansetron 4 MG/2 ML Vial IV (01:26)
[2019-07-23] MEDS: Morphine 4 MG/ML Syringe IV (01:26)
--- NOTE | 2019-07-23 01:28 | ED.DCSUM_ITS ---
- ER Visit Summary Date of Service: 07/23/19 Chief Complaint: Abdominal pain History of Present Illness: The patient is a 39 F who presents with abdominal pain that began approximately 8 hours prior to arrival. Patient states she was sneezing when the pain began. Patient states the pain is over the epigastric area. Patient states the pain is sharp. Patient admits to nausea but denies any vomiting. Patient denies any diarrhea, melena, or hematochezia. Patient denies any dysuria or hematuria. Patient denies any fevers but admits to subjective chills. Physical Examination: Vital signs are stable. Patient is afebrile. Patient is in no acute distress. Oral mucosa is pink and moist. Neck is supple. Trachea is midline. There is no JVD noted. Heart was regular rate and rhythm. Lungs are clear and equal bilateral. Abdomen is soft. There is some mild epigastric tenderness. There is no rebound or guarding noted. Cranial nerves II through XII are intact. There are no focal motor or sensory deficits noted. Test Results: CBC shows a slight leukocytosis of 12.4. Comprehensive metabolic profile was within normal limits. Urinalysis was normal. hCG was negative. Emergency Department Course and Treatment: Patient was given morphine and Zofran here. Patient had some skin flushing of her face after the morphine. Patient was instructed to follow-up with her primary care physician in 5 to 7 days. This is most likely muscular strain of her abdominal muscle from sneezing. Patient understood and was agreeable with the plan. All questions were answered. Disposition: Discharge home Impression: Abdominal pain This note was generated with [employer] dictation software. It may contain incorrect words, spelling, and punctuation that were not noted in review of the chart prior to signing ED Disposition - Plan for ED Patient: Disposition: Home or Assisted Living Diagnosis: Abdominal pain Instructions: MUSCLE STRAIN, Abdomen Referrals: Ko Holt MD [Primary Care Provider] - 5-7 Days
[2019-07-23] MEDS: Ipratropium/Albuterol Sulfate 3 ML AMPUL.NEB INHALATION (01:30)
[2019-07-23 01:31] VITALS: PULSE 82; RESP 18
[2019-07-23 01:31] LABS: AST(SGOT) 14 U/L (15-37); Alanine Aminotransfer ALT/SGPT 21 U/L (13-56); Albumin, Serum 3.3 g/dL (3.2-5.0); Alkaline Phosphatase 69 U/L (45-117); Bilirubin, Direct 0.15 mg/dL (0.00-0.30); Globulin 4.2 g/dL (2.2-4.2); Lipase 88 U/L (73-393); Protein, Total 7.5 g/dL (6.4-8.2)
--- NOTE | 2019-07-23 02:02 | ED.RN ---
MD NOTIFIED THAT PT STATES SHE HAS FACIAL REDNESS AND HAND REDNESS.
[2019-07-23 02:13] VITALS: BP 100/89; PULSE 70; PULSE 75; RESP 20; O2SAT 96
[2019-07-23 02:19] VITALS: BP 112/62
== END 2019-07-23 02:21 | disposition home or self-care (01) ==
PROVIDERS: Emergency Provider Emergency Medicine; Family Provider Family Medicine; PCP Family Medicine
DX: R10.13 Epigastric pain (principal); E66.9 Obesity, unspecified; K21.9 Gastro-esophageal reflux disease without esophagitis; Z72.0 Tobacco use; F41.9 Anxiety disorder, unspecified; F32.9 Major depressive disorder, single episode, unspecified; Z79.899 Other long term (current) drug therapy
CPT/HCPCS: 80048; 80076; 81001; 83690; 84703; 85025; 94640; 96374; 96375; 99283; A4216; J2405

== ENCOUNTER 2019-09-21 22:09 | Emergency (ER) | payer MEDICAID, SELFPAY ==
[2019-09-21 22:09] VITALS: BP 147/68; PULSE 77; RESP 18; TEMP 36.2; O2SAT 99; BMI 52.5
--- NOTE | 2019-09-21 23:16 | ED.VIS.GEN ---
History of Present Illness Chief Complaint: Abd Pain Narrative: Patient is a 39-year-old female who presents with abdominal pain. She has had some component of chronic abdominal pain, she has multiple ER visits for abdominal pain. Her current episode began earlier today. She complains of mid and upper abdominal pain with radiation through to the back most of the day. She complains of some mild nausea. No vomiting. She has had some constipation but took MiraLAX and did have a bowel movement. No fevers. No cough or rhinorrhea. She does have a history of hiatal hernia repair and a remote history of a gastric ulcer. Past Medical History - Allergies and Home Meds Allergies/Adverse Reactions: Allergies Penicillins Allergy (Verified 09/21/19 22:13) Hives Primary Care Physician: Ko Holt MD [Primary Care Provider] - Past Medical History: - - History of gastric ulcer, depression and anxiety Smoking Status: Current every day smoker Review of Systems All systems negative except as indicated General: Denies: Fever Cardiovascular: Denies: Chest pain Respiratory: Denies: Dyspnea Gastrointestinal: Reports: Abdominal pain, Nausea, Constipation. Denies: Vomiting, Diarrhea Physical Exam Vital Signs/Narrative: Vital Signs Temp Pulse Resp BP Pulse Ox 09/21/19 22:09 97.1 F L 77 18 147/68 H 99 Inital Vital Signs reviewed: Yes General: Well nourished, Well developed Head: Normocephalic Eyes: EOMI ENT: Moist mucous membranes Neck: Supple Cardiovascular: Regular rate, Regular rhythm Respiratory: No distress, CTA bilaterally Abdomen: Soft, Tender - Epigastric abdominal tenderness without guarding without rebound. Negative for: Guarding Skin: Normal color Neurological: Alert Psychological: Normal affect Diagnostic/Tx/Re-eval Laboratory Results 09/21/19 09/21/19 22:53 22:53 WBC 11.4 H RBC 4.92 Hgb 14.0 Hct 45.3 MCV 92.1 MCH 28.5 MCHC 30.9 L RDW Std Deviation 46.7 H RDW Coeff of Ayesha 13.8 Plt Count 246 MPV 11.2 Immature Gran % (Auto) 0.400 Neut % (Auto) 55.0 Lymph % (Auto) 34.4 Cobb % (Auto) 6.9 Eos % (Auto) 2.3 Baso % (Auto) 1.0 Absolute Neuts (auto) 6.3 Absolute Lymphs (auto) 3.92 Nucleated RBC % 0 Sodium 138 Potassium 3.8 Chloride 104 Carbon Dioxide 31.0 Anion Gap 3 L BUN 11 Creatinine 0.67 Estim Creat Clear Calc 86.75 Est GFR (MDRD) Af Amer 128 Est GFR (MDRD) Non-Af 105 BUN/Creatinine Ratio 16.5 Glucose 72 L Calcium 8.7 Total Bilirubin 0.40 AST 11 L ALT 19 Alkaline Phosphatase 61 Total Protein 7.1 Albumin 3.1 L Globulin 4.0 Albumin/Globulin Ratio 0.8 L Lipase 134 - Medical Decision Making Labs are notable only for white count 11.4. On reevaluation patient is resting comfortably laughing and joking. Her abdomen is soft. I do not believe any imaging is necessary at this time. She may have a component of gastritis. She is already on omeprazole, 40 mg twice daily. She states she gets an episode of pain like this about every 4 to 6 weeks. I advised that she follow-up with her primary care physician and advised she may benefit from GI referral given her ongoing symptoms. Patient understands to return for new or worsening symptoms and was discharged home. ED Disposition - Plan for ED Patient: Disposition: Home or Assisted Living Diagnosis: Abdominal pain Instructions: ABDOMINAL PAIN, Unknown Cause, (Female) Referrals: Ko Holt MD [Primary Care Provider] -
[2019-09-21 23:22] LABS: Absolute Lymphocyte Count 3.92 X10^3/uL (0.83-4.51); Absolute Neutrophil Count 6.3 X10^3/uL (2.0-7.7); Basophil# 0.11 X10^3/uL; Eosinophil# 0.26 X10^3/uL; Eosinophils% 2.3 % (0-5); Hematocrit 45.3 % (37-47); Lymphocyte # 3.92 X10^3/ul (4.0); Lymphocyte % 34.4 % (19-41); Mean Corp Hgb Conc 30.9 g/dL (32-36); Mean Corpuscular Hgb 28.5 pg (27.0-32.0); Mean Corpuscular Volume 92.1 fL (81-99); Mean Platelet Vol. 11.2 fl (6.2-12.0); Monocyte# 0.79 X10^3/uL; Monocyte% 6.9 % (0-10); NRBC Flagged by Analyzer 0 % (0-5); Neutrophil # 6.26 X10^3/uL (2.7-7.7); Platelet Count 246 K/mm3 (150-450); RBC Distribution Width CV 13.8 % (11.6-14.6); RBC Distribution Width SD 46.7 fl (35.1-43.9); Red Blood Count 4.92 M/mm3 (4.2-5.4); White Blood Count 11.4 K/mm3 (4.4-11.0)
[2019-09-21] MEDS: Mag Hydrox/Al Hydrox/Simeth 30 ML UDC PO (23:23)
[2019-09-21] MEDS: Ondansetron 4 MG/2 ML Vial IV (23:23)
[2019-09-21] MEDS: 0.9% Normal Saline 1,000 ML 1000 ML IV (23:23)
[2019-09-21 23:36] LABS: ALB/GLOB Ratio 0.8 RATIO (0.9-2.4); AST(SGOT) 11 U/L (15-37); Alanine Aminotransfer ALT/SGPT 19 U/L (13-56); Albumin, Serum 3.1 g/dL (3.2-5.0); Alkaline Phosphatase 61 U/L (45-117); Anion Gap 3 (5-15); BUN 11 mg/dL (7-18); BUN/Creat Ratio 16.5 RATIO (10-20); Calcium,Total 8.7 mg/dL (8.5-10.1); Chloride 104 mmol/L (98-107); Creatinine, Serum 0.67 mg/dL (0.55-1.02); EST Glomerular Filtration Rate 105 mL/min (>60); Est Glom Filt Rate - Afr Amer 128 mL/min (>60); Estimated Creatinine Clearance 86.75 ml/min; Glucose 72 mg/dL (74-106); Lipase 134 U/L (73-393); Potassium 3.8 mmol/L (3.5-5.1); Protein, Total 7.1 g/dL (6.4-8.2); Sodium Level 138 mmol/L (136-145)
[2019-09-21 23:57] VITALS: BP 102/81; PULSE 73; RESP 18; O2SAT 98
== END 2019-09-22 | disposition home or self-care (01) ==
PROVIDERS: Emergency Provider Emergency Medicine; Family Provider Family Medicine; PCP Family Medicine
DX: R10.13 Epigastric pain (principal); F32.9 Major depressive disorder, single episode, unspecified; F41.9 Anxiety disorder, unspecified; Z87.11 Personal history of peptic ulcer disease; Z79.899 Other long term (current) drug therapy
CPT/HCPCS: 80053; 83690; 85025; 96361; 96374; 99285; J7030; A4216; J2405

== ENCOUNTER 2019-10-12 20:48 | Emergency (ER) | payer MEDICAID, SELFPAY ==
[2019-10-12 20:48] VITALS: BP 109/67; PULSE 81; RESP 18; TEMP 37.1; O2SAT 98; BMI 50.6
--- NOTE | 2019-10-12 20:59 | ED.RN ---
PT STATES THE PAIN IN IN THE MIDDLE OF THE ABDOMEN WHERE SHE HAS A HERNIA. IT FEELS SIMILAR TO THE HERNIA I HAD REPAIRED BELOW THIS ONE. AND [place] SON JUMPS ON MY STOMACH AT HOME FREQUENTLY WHICH DOESN'T HELP.
--- NOTE | 2019-10-12 21:27 | CT_ITS ---
STUDY: CT ABDOMEN AND PELVIS WITH CONTRAST REASON FOR EXAM: Female, 39 years old. Upper abdominal pain RADIATION DOSAGE (If Supplied By Facility): CTDIvol = ( 13.75 ) mGy, DLP = ( 1131.16 ) mGycm TECHNIQUE: Transaxial images were obtained from the dome of the diaphragm to the symphysis pubis without oral contrast. IV 100mL Isovue-300 100ML was administered. Sagittal and coronal images were reconstructed. Individualized dose optimization techniques were used for this CT. COMPARISON: January 29, 2019 FINDINGS: The lower lobes are clear.. The visualized portions of the heart are within normal limits. The liver is prominent but homogeneous attenuation without mass or bile duct dilatation. Normal gallbladder and extrahepatic biliary system. Normal spleen. Normal pancreas. Normal bilateral adrenal glands. Normal right kidney. Normal left kidney. Normal visualized stomach. Normal small intestine. Normal colon. The appendix is visualized and appears normal. Normal abdominal aorta. Normal inferior vena cava. Normal retroperitoneum. Incompletely distended thick-walled bladder likely of no significance.. There is a left ovarian cyst containing fat consistent with dermoid There is a moderate-sized supraumbilical hernia containing fat as well as a smaller periumbilical hernia containing fat without evidence for incarceration. There is nonspecific thickening of the brunner of a loop of small bowel in the lower abdomen and pelvis with stranding in the fat and small amount of fluid consistent with nonspecific enteritis. There is a small anterior pelvic wall hernia containing fat, bowel and fluid. Normal osseous structures. CT/Abdomen/Pelvis W IV Cont ONLY IMPRESSION: Findings consistent with nonspecific enteritis with thickening of the bowel wall, stranding in the fat and fluid. Cannot definitively exclude small bowel ischemia Multiple anterior abdominal wall hernias. Complex ovarian cyst with fat likely representing dermoid Other findings as above Electronically Signed: Suhas Handy MD at 23:00 EST , Service support ,
[2019-10-12] MEDS: Ondansetron 4 MG/2 ML Vial IV (21:48)
[2019-10-12] MEDS: Morphine 4 MG/ML Syringe IV (21:48)
[2019-10-12] MEDS: 0.9% Normal Saline 1,000 ML 1000 ML IV (21:48)
[2019-10-12 22:01] LABS: Absolute Lymphocyte Count 2.53 X10^3/uL (0.83-4.51); Absolute Neutrophil Count 7.4 X10^3/uL (2.0-7.7); Basophil# 0.09 X10^3/uL; Basophil% 0.8 % (0-1); Eosinophil# 0.17 X10^3/uL; Eosinophils% 1.6 % (0-5); Hematocrit 42.9 % (37-47); Hemoglobin 13.4 g/dL (12.0-15.0); Lymphocyte # 2.53 X10^3/ul (4.0); Lymphocyte % 23.2 % (19-41); Mean Corp Hgb Conc 31.2 g/dL (32-36); Mean Corpuscular Hgb 28.6 pg (27.0-32.0); Mean Corpuscular Volume 91.5 fL (81-99); Mean Platelet Vol. 11.3 fl (6.2-12.0); Monocyte# 0.68 X10^3/uL; Monocyte% 6.2 % (0-10); NRBC Flagged by Analyzer 0 % (0-5); Neutrophil # 7.39 X10^3/uL (2.7-7.7); Neutrophil % 67.7 % (47-70); Platelet Count 232 K/mm3 (150-450); RBC Distribution Width CV 13.6 % (11.6-14.6); RBC Distribution Width SD 45.6 fl (35.1-43.9); Red Blood Count 4.69 M/mm3 (4.2-5.4); White Blood Count 10.9 K/mm3 (4.4-11.0)
[2019-10-12 22:17] LABS: ALB/GLOB Ratio 0.8 RATIO (0.9-2.4); AST(SGOT) 14 U/L (15-37); Alanine Aminotransfer ALT/SGPT 19 U/L (13-56); Alkaline Phosphatase 52 U/L (45-117); Anion Gap 3 (5-15); BUN 13 mg/dL (7-18); BUN/Creat Ratio 20.1 RATIO (10-20); Calcium,Total 8.7 mg/dL (8.5-10.1); Chloride 104 mmol/L (98-107); Creatinine, Serum 0.65 mg/dL (0.55-1.02); EST Glomerular Filtration Rate 110 mL/min (>60); Est Glom Filt Rate - Afr Amer 133 mL/min (>60); Estimated Creatinine Clearance 93.72 ml/min; Globulin 3.7 g/dL (2.2-4.2); Glucose 92 mg/dL (74-106); Internal QC Validated? YES +Cl - CLEAR BKGD; Lipase 87 U/L (73-393); Potassium 4.1 mmol/L (3.5-5.1); Pregnancy, Serum, hCG Quali. NEGATIVE Negative; Protein, Total 6.7 g/dL (6.4-8.2); Sodium Level 140 mmol/L (136-145)
[2019-10-12 22:48] VITALS: BP 112/69; PULSE 78; RESP 16; O2SAT 97
--- NOTE | 2019-10-12 23:17 | ED.VISSUMM ---
- ER Visit Summary Date of Service: 10/12/19 Chief Complaint: Abdominal pain History of Present Illness: The patient is a 39 F with upper abdominal pain that started this morning. Associate with nausea. Denies vomiting or other GI symptoms. She has had a recent upper respiratory infection with cough and sputum. She also reports chills. History of hernias and similar pain with those hernias. She also has a history of dermoid cyst. Physical Examination: Afebrile and vital signs unremarkable. Heart regular. Lungs clear. Abdomen is tender in the upper hemiabdomen. No guarding rebound. Skin appears normal without jaundice or other abnormal findings. Test Results: CBC, CMP, lipase, hCG unremarkable. CT shows enteritis. Radiologist could not rule out ischemia. Emergency Department Course and Treatment: Patient was treated with fluids, morphine, Zofran while awaiting results. Labs were all reassuring. CT was concerning for enteritis. I do not believe she is ischemic based on her age and risk factors. Her exam is not consistent with ischemia. This is likely gastroenteritis as it is prevalent in the community. Patient will be treated with supportive care and symptomatic care at home. Return for any new or worsening issues. Treatment Plan: As above Disposition: Discharge Impression: 1. Gastroenteritis This note was generated with Recruit[employer] dictation software. It may contain incorrect words, spelling, and punctuation that were not noted in review of the chart prior to signing ED Disposition - Plan for ED Patient: Referrals: Ko Holt MD [Primary Care Provider] -
--- NOTE | 2019-10-12 23:19 | ED.DEP ---
ED Disposition - Plan for ED Patient: Instructions: GASTROENTERITIS, Viral (8y-Adult) Prescriptions: Ondansetron [Zofran Odt] 4 mg PO Q8H PRN PRN #10 tab PRN Reason: Nausea Prescription Printed Referrals: Ko Holt MD [Primary Care Provider] -
[2019-10-12 23:29] VITALS: RESP 16
== END 2019-10-12 23:30 | disposition home or self-care (01) ==
LOC: ED 21:49
PROVIDERS: Emergency Provider Emergency Medicine; Family Provider Family Medicine; PCP Family Medicine
DX: K52.9 Noninfective gastroenteritis and colitis, unspecified (principal); J45.909 Unspecified asthma, uncomplicated; R05 Cough; Z72.0 Tobacco use
CPT/HCPCS: 74177; 80053; 83690; 84703; 85025; 96361; 96374; 96375; 99284; J7030; Q9967; A4216; J2405

== ENCOUNTER 2019-10-15 03:51 | Emergency (ER) | payer MEDICAID, SELFPAY ==
[2019-10-15 03:52] VITALS: BP 111/76; PULSE 67; RESP 18; TEMP 36.8; O2SAT 97; BMI 51.7
--- NOTE | 2019-10-15 04:03 | ED.DCSUM_ITS ---
History of Present Illness Chief Complaint: Abd Pain Informant: Patient Onset: Days, - - Worse since 7 PM last evening. Context: Gradual Onset Timing: Waxes and wanes Current Severity: Moderate Maximum Severity: Moderate Narrative: Patient presents via EMS with upper abdominal pain. Patient was seen in the ER 3 days ago for the same. Work-up at that time revealed evidence of enteritis. She is been taking Zofran at home without improvement. She is already on Bentyl at home as well. Patient states pain worsened around 7 PM last evening. She has some nausea but no vomiting or diarrhea. She states she has not had a bowel movement in 2 days but is passing gas. - Past Medical History (1) Anxiety Status: Chronic (2) Depression Status: Chronic (3) Chronic abdominal pain Status: Chronic (4) Gastric ulcer Status: Resolved Past Medical History - Allergies and Home Meds Allergies/Adverse Reactions: Allergies Penicillins Allergy (Verified 10/15/19 04:12) Hives Primary Care Physician: Ko Holt MD [Primary Care Provider] - Prior records reviewed: Yes Surgical History: herniorrhaphy, - - x3 Smoking Status: Current every day smoker Review of Systems General: Reports: Chills. Denies: Fever Eyes: Denies: Visual changes - bilaterally ENT: Denies: Bilateral ear pain Cardiovascular: Denies: Chest pain Respiratory: Denies: Dyspnea, Cough Gastrointestinal: Reports: Abdominal pain, Nausea. Denies: Vomiting, Diarrhea Genitourinary: Denies: Dysuria Musculoskeletal: Reports: Myalgias. Denies: Extremity Pain Skin: Denies: Rash Neurological: Denies: Headache Allergy: Denies: Uticaria Physical Exam Vital Signs/Narrative: Vital Signs Temp Pulse Resp BP Pulse Ox 10/15/19 03:52 98.3 F 67 18 111/76 97 Inital Vital Signs reviewed: Yes General: Well nourished, Well developed Head: Normocephalic ENT: Moist mucous membranes Cardiovascular: Regular rate, Regular rhythm Respiratory: No distress, CTA bilaterally Abdomen: Soft, Tender - Mild upper abdominal tenderness., Hypoactive bowel sounds. Negative for: Guarding, Rebound tenderness Extremities: Nontender Skin: Normal color, No rash Neurological: Alert, Oriented x3 Psychological: Normal affect Diagnostic/Tx/Re-eval Laboratory Results 10/15/19 10/15/19 10/15/19 04:00 04:00 04:00 WBC 9.8 RBC 4.48 Hgb 13.3 Hct 41.7 MCV 93.1 MCH 29.7 MCHC 31.9 L RDW Std Deviation 45.2 H RDW Coeff of Ayesha 13.3 Plt Count 239 MPV 11.7 Immature Gran % (Auto) 0.400 Neut % (Auto) 57.8 Lymph % (Auto) 32.7 [place] % (Auto) 6.9 Eos % (Auto) 1.5 Baso % (Auto) 0.7 Absolute Neuts (auto) 5.7 Absolute Lymphs (auto) 3.20 Nucleated RBC % 0 Sodium 138 Potassium 4.2 Chloride 103 Carbon Dioxide 33.0 H Anion Gap 2 L BUN 16 Creatinine 0.76 Estim Creat Clear Calc 80.16 Est GFR (MDRD) Af Amer 110 Est GFR (MDRD) Non-Af 91 BUN/Creatinine Ratio 21.1 H Glucose 85 Lactic Acid 0.9 Calcium 8.5 Total Bilirubin 0.40 Direct Bilirubin 0.18 AST 11 L ALT 17 Alkaline Phosphatase 54 Total Protein 6.4 Albumin 3.0 L Globulin 3.4 Lipase 102 Serum , Qual Urine Color Urine Clarity Urine pH Ur Specific [place] Urine Protein Urine Glucose (UA) Urine Ketones Urine Occult Blood Urine Nitrite Urine Bilirubin Urine Urobilinogen Ur Leukocyte Esterase Urine RBC Urine WBC Ur Squamous Epith Cells Amorphous Sediment Urine Bacteria Urine Mucus 10/15/19 10/15/19 04:00 04:45 WBC RBC Hgb Hct MCV MCH MCHC RDW Std Deviation RDW Coeff of Ayesha Plt Count MPV Immature Gran % (Auto) Neut % (Auto) Lymph % (Auto) [place] % (Auto) Eos % (Auto) Baso % (Auto) Absolute Neuts (auto) Absolute Lymphs (auto) Nucleated RBC % Sodium Potassium Chloride Carbon Dioxide Anion Gap BUN Creatinine Estim Creat Clear Calc Est GFR (MDRD) Af Amer Est GFR (MDRD) Non-Af BUN/Creatinine Ratio Glucose Lactic Acid Calcium Total Bilirubin Direct Bilirubin AST ALT Alkaline Phosphatase Total Protein Albumin Globulin Lipase Serum , Qual NEGATIVE Urine Color Yellow Urine Clarity Clear Urine pH 6.0 Ur Specific [place] 1.020 Urine Protein 15 H Urine Glucose (UA) Normal Urine Ketones Negative Urine Occult Blood Negative Urine Nitrite Negative Urine Bilirubin Negative Urine Urobilinogen 4 H Ur Leukocyte Esterase Negative Urine RBC 0 SEEN Urine WBC 0 SEEN Ur Squamous Epith Cells 0-5 SEEN Amorphous Sediment 1+ Urine Bacteria 0 SEEN Urine Mucus 0 SEEN - Medical Decision Making Patient was given fentanyl, Phenergan, IV fluids. I did review her work-up from [address] scan at that time revealed evidence of enteritis. They did comment that they could not rule out ischemic bowel. Clinically the patient has no sign of ischemic bowel and her lactate tonight is normal. On repeat evaluation she reports just minimal remaining pain, overall she is improved. I did do an oars report. She has not had any pain medication in the last 11 months. She was given a short course of Hyampom to help with her pain. She is already on Bentyl as well as Zofran at home. ED Disposition - Plan for ED Patient: Disposition: Home or Assisted Living Diagnosis: Gastroenteritis Instructions: GASTROENTERITIS, Viral (8y-Adult), ABDOMINAL PAIN, Unknown Cause, (Female) Prescriptions: Hydrocodone Bitart/Apap 5-325 [Hyampom 5MG-325MG] 1 tablet PO Q4H PRN PRN 2 Days #10 tablet PRN Reason: Pain Referrals: Ko Holt MD [Primary Care Provider] - 3-5 Days if not improving
[2019-10-15] MEDS: fentaNYL 100 MCG/2 ML Ampul 50 MCG IV (04:11)
[2019-10-15] MEDS: proMETHazine 25 MG/ML Syringe 12.5 MG IV (04:11)
[2019-10-15] MEDS: 0.9% Normal Saline 1,000 ML 150 ML IV (04:12)
[2019-10-15 04:25] LABS: Absolute Neutrophil Count 5.7 X10^3/uL (2.0-7.7); Basophil# 0.07 X10^3/uL; Basophil% 0.7 % (0-1); Eosinophil# 0.15 X10^3/uL; Eosinophils% 1.5 % (0-5); Hematocrit 41.7 % (37-47); Hemoglobin 13.3 g/dL (12.0-15.0); Lymphocyte % 32.7 % (19-41); Mean Corp Hgb Conc 31.9 g/dL (32-36); Mean Corpuscular Hgb 29.7 pg (27.0-32.0); Mean Corpuscular Volume 93.1 fL (81-99); Mean Platelet Vol. 11.7 fl (6.2-12.0); Monocyte# 0.68 X10^3/uL; Monocyte% 6.9 % (0-10); NRBC Flagged by Analyzer 0 % (0-5); Neutrophil # 5.66 X10^3/uL (2.7-7.7); Neutrophil % 57.8 % (47-70); Platelet Count 239 K/mm3 (150-450); RBC Distribution Width CV 13.3 % (11.6-14.6); RBC Distribution Width SD 45.2 fl (35.1-43.9); Red Blood Count 4.48 M/mm3 (4.2-5.4); White Blood Count 9.8 K/mm3 (4.4-11.0)
[2019-10-15 04:55] LABS: Bacteria 0 SEEN /hpf (None Seen); Color, Urine Yellow (Yellow); Glucose, Dipstick Normal (Normal); Ketone-Dipstick Negative (Negative); Leukocyte Esterase-Dipstick Negative /ul (Negative); Mucous, Urine 0 SEEN /hpf (<or=2+); Nitrite-Dipstick Negative (Negative); Occult Blood-Urine Negative /ul (Negative); Protein-Dipstick 15 mg/dl (Negative); Red Blood Cells-Urine 0 SEEN /hpf (0-5); Urine Bilirubin Dipstick Negative (Negative); Urine Clarity Clear (Clear); Urine Urobilinogen 4 mg/dl (Normal); White Blood Cells 0 SEEN /hpf (0-5)
[2019-10-15 04:56] LABS: Internal QC Validated? YES +Cl - CLEAR BKGD; Pregnancy, Serum, hCG Quali. NEGATIVE Negative
[2019-10-15 05:02] LABS: AST(SGOT) 11 U/L (15-37); Alanine Aminotransfer ALT/SGPT 17 U/L (13-56); Alkaline Phosphatase 54 U/L (45-117); Anion Gap 2 (5-15); BUN 16 mg/dL (7-18); BUN/Creat Ratio 21.1 RATIO (10-20); Bilirubin, Direct 0.18 mg/dL (0.00-0.30); Calcium,Total 8.5 mg/dL (8.5-10.1); Chloride 103 mmol/L (98-107); Creatinine, Serum 0.76 mg/dL (0.55-1.02); EST Glomerular Filtration Rate 91 mL/min (>60); Est Glom Filt Rate - Afr Amer 110 mL/min (>60); Estimated Creatinine Clearance 80.16 ml/min; Globulin 3.4 g/dL (2.2-4.2); Glucose 85 mg/dL (74-106); Lactic Acid 0.9 mmol/L (0.4-2.0); Lipase 102 U/L (73-393); Potassium 4.2 mmol/L (3.5-5.1); Protein, Total 6.4 g/dL (6.4-8.2); Sodium Level 138 mmol/L (136-145)
[2019-10-15 05:09] LABS: Amorphous Sediment 1+; Squamous Epithelial Cells - UA 0-5 SEEN /hpf (5-10)
[2019-10-15 05:18] VITALS: PULSE 77; O2SAT 91
== END 2019-10-15 05:28 | disposition home or self-care (01) ==
PROVIDERS: Emergency Provider Emergency Medicine; Family Provider Family Medicine; PCP Family Medicine
DX: K52.9 Noninfective gastroenteritis and colitis, unspecified (principal); F41.9 Anxiety disorder, unspecified; F32.9 Major depressive disorder, single episode, unspecified; Z87.19 Personal history of other diseases of the digestive system; Z79.899 Other long term (current) drug therapy; F17.200 Nicotine dependence, unspecified, uncomplicated
CPT/HCPCS: 80048; 80076; 81001; 83605; 83690; 84703; 85025; 96361; 96374; 96375; 99285; J7030; A4216; J2405

== ENCOUNTER 2019-11-18 00:50 | Emergency (ER) | payer MEDICAID, SELFPAY ==
[2019-11-18 00:50] VITALS: BP 102/51; PULSE 78; RESP 16; TEMP 36.1; O2SAT 97; BMI 56.2
--- NOTE | 2019-11-18 00:56 | CT_ITS ---
STUDY: CT ABDOMEN AND PELVIS WITHOUT CONTRAST REASON FOR EXAM: Female, 39 years old. Mid-upper abdominal pain. History of ovarian dermoid cyst. RADIATION DOSAGE (If Supplied By Facility): CTDIvol = ( 24.06 ) mGy, DLP = ( 1099.97 ) mGycm TECHNIQUE: Transaxial images were obtained from the dome of the diaphragm to the symphysis pubis without oral contrast, and without intravenous contrast. Sagittal and coronal images were reconstructed. Individualized dose optimization techniques were used for this CT. COMPARISON: October 12, 2019. FINDINGS: Pleural-based densely calcified nodule lateral aspect of the left lower lobe unchanged. The visualized portions of the heart are within normal limits. Normal liver. Normal gallbladder and extrahepatic biliary system. Normal spleen. Normal pancreas. Normal bilateral adrenal glands. Normal right kidney. Normal left kidney. Normal visualized stomach. Normal small intestine. Normal colon. There are surgical clips in the region of the appendix suggestive of a prior appendectomy. Normal abdominal aorta. Normal inferior vena cava. Normal retroperitoneum. No intra-abdominal free air. Normal urinary bladder. Uterus grossly normal. 6.9 x 5.6 x 4.0 cm left ovarian dermoid containing a fat fluid level slightly increased in size since the prior study. Mid abdominal midline ventral hernia containing fat measuring 6.4 x 2.6 cm in unchanged. Smaller umbilical hernia containing fat unchanged. 5.9 x 4.1 cm right inguinal/anterior pelvic wall hernia now containing loops of small bowel without evidence of bowel strangulation. Normal osseous structures. CT/Abdomen/Pelvis without Cont IMPRESSION: No evidence of bowel obstruction. Right inguinal/right anterior pelvic wall hernia which now contains loops of small bowel without evidence of bowel strangulation. 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 No change in 2 ventral hernias containing fat. Stable calcified left lower lobe lung nodule. Electronically Signed: Luis Stewart MD at 2:05 EST , Service support ,
--- NOTE | 2019-11-18 00:59 | ED.VISSUMM ---
- ER Visit Summary Date of Service: 11/18/19 Chief Complaint: Abdominal pain History of Present Illness: The patient is a 39 F presenting with abdominal pain. She states this started on Saturday. She states she lifted a heavy bucket and began having pain following that. She states it progressively worsened over the next several days. She has nausea with no vomiting. She has had subjective fever. She denies diarrhea or constipation. Denies urinary complaints. She has a history of GERD and previous abdominal wall hernia. Denies other complaints. Physical Examination: Vitals are stable. Patient is afebrile. Alert no acute distress. HEENT exam is unremarkable. Neck is supple. Lungs are clear and equal bilaterally. Heart is regular rate and rhythm. Abdomen is soft obese, epigastric tenderness, no guarding or rebound Extremities are unremarkable. Skin is warm and dry. No focal neurologic deficit. Remainder of exam is unremarkable. Emergency Department Course and Treatment: Patient was given morphine, Zofran, GI cocktail. CBC shows white count 11.3. Chemistries unremarkable. Liver lipase are normal. Urinalysis unremarkable. CT abdomen pelvis shows no evidence of bowel obstruction. Right inguinal/right anterior pelvic wall hernia which now contains loops of small bowel without evidence of bowel strangulation. 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 No change in 2 ventral hernias containing fat. Stable calcified left lower lobe lung nodule. On reevaluation, patient is resting comfortably. Her abdomen is soft and nontender with no rebound or guarding. She has no tenderness in the right lower quadrant or right inguinal region. She is advised to continue her Bentyl and omeprazole. She is advised to follow-up with Dr. Carpenter. Advised to return to ED for worsening complaints. Disposition: Discharge home Impression: Abdominal pain This note was generated with Ta[employer] dictation software. It may contain incorrect words, spelling, and punctuation that were not noted in review of the chart prior to signing ED Disposition - Plan for ED Patient: Instructions: ABDOMINAL PAIN, Unknown Cause, (Female) Referrals: Yazan Carpenter MD [STAFF PHYSICIAN] - Ko Holt MD [Primary Care Provider] -
[2019-11-18] MEDS: Mag Hydrox/Al Hydrox/Simeth 30 ML UDC PO (01:07)
[2019-11-18 01:08] LABS: Absolute Lymphocyte Count 3.49 X10^3/uL (0.83-4.51); Absolute Neutrophil Count 6.7 X10^3/uL (2.0-7.7); Basophil# 0.08 X10^3/uL; Basophil% 0.7 % (0-1); Eosinophil# 0.21 X10^3/uL; Eosinophils% 1.9 % (0-5); Hematocrit 42.2 % (37-47); Hemoglobin 13.1 g/dL (12.0-15.0); Lymphocyte # 3.49 X10^3/ul (4.0); Lymphocyte % 30.8 % (19-41); Mean Corpuscular Hgb 28.5 pg (27.0-32.0); Mean Corpuscular Volume 91.9 fL (81-99); Mean Platelet Vol. 10.9 fl (6.2-12.0); Monocyte# 0.84 X10^3/uL; Monocyte% 7.4 % (0-10); NRBC Flagged by Analyzer 0 % (0-5); Neutrophil # 6.66 X10^3/uL (2.7-7.7); Neutrophil % 58.7 % (47-70); Platelet Count 234 K/mm3 (150-450); RBC Distribution Width CV 13.4 % (11.6-14.6); RBC Distribution Width SD 45.2 fl (35.1-43.9); Red Blood Count 4.59 M/mm3 (4.2-5.4); White Blood Count 11.3 K/mm3 (4.4-11.0)
[2019-11-18] MEDS: Ondansetron 4 MG/2 ML Vial IV (01:08)
[2019-11-18 01:15] LABS: Bacteria 0 SEEN /hpf (None Seen); Mucous, Urine 0 SEEN /hpf (<or=2+); Red Blood Cells-Urine 0 SEEN /hpf (0-5); White Blood Cells 0 SEEN /hpf (0-5)
[2019-11-18 01:19] LABS: Color, Urine Yellow (Yellow); Glucose, Dipstick Normal (Normal); Ketone-Dipstick Negative (Negative); Leukocyte Esterase-Dipstick Negative /ul (Negative); Nitrite-Dipstick Negative (Negative); Occult Blood-Urine Negative /ul (Negative); Protein-Dipstick Negative (Negative); Specific Gravity, Urine 1.015 (1.002-1.030); Urine Bilirubin Dipstick Negative (Negative); Urine Clarity Clear (Clear); Urine Urobilinogen Normal (Normal); Urine pH 6.5 (5.0 - 8.0)
[2019-11-18 01:25] LABS: Squamous Epithelial Cells - UA 0-5 SEEN /hpf (5-10)
[2019-11-18 01:30] LABS: ALB/GLOB Ratio 0.8 RATIO (0.9-2.4); AST(SGOT) 18 U/L (15-37); Alanine Aminotransfer ALT/SGPT 25 U/L (13-56); Albumin, Serum 3.1 g/dL (3.2-5.0); Alkaline Phosphatase 60 U/L (45-117); Anion Gap 5 (5-15); BUN 12 mg/dL (7-18); BUN/Creat Ratio 17.7 RATIO (10-20); Chloride 105 mmol/L (98-107); Creatinine, Serum 0.68 mg/dL (0.55-1.02); EST Glomerular Filtration Rate 104 mL/min (>60); Est Glom Filt Rate - Afr Amer 125 mL/min (>60); Estimated Creatinine Clearance 85.48 ml/min; Globulin 3.9 g/dL (2.2-4.2); Glucose 87 mg/dL (74-106); Lipase 153 U/L (73-393); Potassium 4.2 mmol/L (3.5-5.1); Sodium Level 139 mmol/L (136-145)
--- NOTE | 2019-11-18 02:14 | ED.DEP ---
ED Disposition - Plan for ED Patient: Instructions: ABDOMINAL PAIN, Unknown Cause, (Female) Referrals: Ko Holt MD [Primary Care Provider] - Yazan Carpenter MD [STAFF PHYSICIAN] -
[2019-11-18] MEDS: Morphine 4 MG/ML Syringe IV (02:18)
[2019-11-18 02:39] VITALS: BP 120/80; PULSE 78; RESP 18; O2SAT 98
[2019-11-18 02:40] VITALS: RESP 18
== END 2019-11-18 02:40 | disposition home or self-care (01) ==
PROVIDERS: Emergency Provider Emergency Medicine; Family Provider Family Medicine; PCP Family Medicine
DX: R10.9 Unspecified abdominal pain (principal); R11.0 Nausea; K43.9 Ventral hernia without obstruction or gangrene; R91.1 Solitary pulmonary nodule; K21.9 Gastro-esophageal reflux disease without esophagitis; F32.9 Major depressive disorder, single episode, unspecified; F41.9 Anxiety disorder, unspecified; Z72.0 Tobacco use
CPT/HCPCS: 74176; 80053; 81001; 83690; 85025; 96374; 96375; 99283; A4216; J2405

== ENCOUNTER 2019-11-21 16:15 | Emergency (ER) | payer MEDICAID, SELFPAY ==
[2019-11-21 16:17] VITALS: BP 133/77; PULSE 75; RESP 15; TEMP 36; O2SAT 98; BMI 52.2
[2019-11-21 17:19] LABS: Mucous, Urine 0 SEEN /hpf (<or=2+); Red Blood Cells-Urine 0 SEEN /hpf (0-5); Squamous Epithelial Cells - UA 0 SEEN /hpf (5-10); White Blood Cells 0 SEEN /hpf (0-5)
[2019-11-21 17:22] LABS: Absolute Lymphocyte Count 2.97 X10^3/uL (0.83-4.51); Absolute Neutrophil Count 6.6 X10^3/uL (2.0-7.7); Basophil% 0.9 % (0-1); Eosinophil# 0.18 X10^3/uL; Eosinophils% 1.7 % (0-5); Hematocrit 46.1 % (37-47); Hemoglobin 14.4 g/dL (12.0-15.0); Lymphocyte # 2.97 X10^3/ul (4.0); Lymphocyte % 27.8 % (19-41); Mean Corp Hgb Conc 31.2 g/dL (32-36); Mean Corpuscular Hgb 29.1 pg (27.0-32.0); Mean Corpuscular Volume 93.1 fL (81-99); Mean Platelet Vol. 11.2 fl (6.2-12.0); Monocyte# 0.83 X10^3/uL; Monocyte% 7.8 % (0-10); NRBC Flagged by Analyzer 0 % (0-5); Neutrophil # 6.56 X10^3/uL (2.7-7.7); Neutrophil % 61.4 % (47-70); Platelet Count 250 K/mm3 (150-450); RBC Distribution Width CV 13.4 % (11.6-14.6); RBC Distribution Width SD 45.4 fl (35.1-43.9); Red Blood Count 4.95 M/mm3 (4.2-5.4); White Blood Count 10.7 K/mm3 (4.4-11.0)
[2019-11-21 17:23] LABS: Color, Urine Yellow (Yellow); Glucose, Dipstick Normal (Normal); Ketone-Dipstick Negative (Negative); Leukocyte Esterase-Dipstick Negative /ul (Negative); Nitrite-Dipstick Negative (Negative); Occult Blood-Urine Negative /ul (Negative); Protein-Dipstick Negative (Negative); Urine Bilirubin Dipstick Negative (Negative); Urine Clarity Clear (Clear); Urine Urobilinogen Normal (Normal); Urine pH 6.5 (5.0 - 8.0)
--- NOTE | 2019-11-21 17:33 | ED.VIS.GEN ---
History of Present Illness Chief Complaint: Abd Pain Informant: Patient Onset: Today Context: Gradual Onset Current Severity: Moderate Maximum Severity: Moderate Narrative: Patient presents with mid upper abdominal pain that started around 130 this afternoon. Patient has had multiple visits for abdominal pain in the past. She states she ate some cheese puffs around noon and then developed abdominal pain at 130. She denies vomiting. She did take Advil earlier this morning but has not taken anything this afternoon. Prior abdominal surgeries include hiatal hernia and 3 C-sections. Last menstrual cycle was 3 weeks ago. - Past Medical History (1) Anxiety Status: Chronic (2) Depression Status: Chronic (3) Gastric ulcer Status: Resolved Past Medical History - Allergies and Home Meds Allergies/Adverse Reactions: Allergies Penicillins Allergy (Verified 11/21/19 16:16) Hives Primary Care Physician: Ko Holt MD [Primary Care Provider] - Prior records reviewed: Yes Surgical History: herniorrhaphy, - - x3 Lives: With Family Smoking Status: Current every day smoker Review of Systems General: Denies: Chills, Fever Eyes: Denies: Visual changes - bilaterally ENT: Denies: Bilateral ear pain Cardiovascular: Denies: Chest pain Respiratory: Denies: Dyspnea, Cough Gastrointestinal: Reports: Abdominal pain. Denies: Vomiting, Diarrhea Genitourinary: Denies: Dysuria Musculoskeletal: Denies: Back pain, Extremity Pain Skin: Denies: Rash Neurological: Denies: Headache Hematologic: Denies: Easy bruising Allergy: Denies: Uticaria Physical Exam Vital Signs/Narrative: Vital Signs Temp Pulse Resp BP Pulse Ox 11/21/19 16:17 96.8 F L 75 15 133/77 H 98 Inital Vital Signs reviewed: Yes General: Well nourished, Well developed Head: Normocephalic ENT: Moist mucous membranes Neck: Supple Cardiovascular: Regular rate, Regular rhythm Respiratory: No distress, CTA bilaterally Abdomen: Soft, Tender - Mid and upper abdominal tenderness.. Negative for: Guarding, Rebound tenderness Extremities: Nontender Skin: Normal color Neurological: Alert, Oriented x3 Psychological: Normal affect Diagnostic/Tx/Re-eval Laboratory Results 11/21/19 11/21/19 11/21/19 17:05 17:10 17:10 WBC 10.7 RBC 4.95 Hgb 14.4 Hct 46.1 MCV 93.1 MCH 29.1 MCHC 31.2 L RDW Std Deviation 45.4 H RDW Coeff of Ayesha 13.4 Plt Count 250 MPV 11.2 Immature Gran % (Auto) 0.400 Neut % (Auto) 61.4 Lymph % (Auto) 27.8 [place] % (Auto) 7.8 Eos % (Auto) 1.7 Baso % (Auto) 0.9 Absolute Neuts (auto) 6.6 Absolute Lymphs (auto) 2.97 Nucleated RBC % 0 Sodium 137 Potassium 4.2 Chloride 103 Carbon Dioxide 34.0 H Anion Gap 0 L BUN 11 Creatinine 0.69 Estim Creat Clear Calc 84.24 Est GFR (MDRD) Af Amer 123 Est GFR (MDRD) Non-Af 102 BUN/Creatinine Ratio 16.0 Glucose 88 Calcium 8.7 Total Bilirubin Direct Bilirubin AST ALT Alkaline Phosphatase Total Protein Albumin Globulin Lipase Serum , Qual Urine Color Yellow Urine Clarity Clear Urine pH 6.5 Ur Specific [place] 1.010 Urine Protein Negative Urine Glucose (UA) Normal Urine Ketones Negative Urine Occult Blood Negative Urine Nitrite Negative Urine Bilirubin Negative Urine Urobilinogen Normal Ur Leukocyte Esterase Negative Urine RBC 0 SEEN Urine WBC 0 SEEN Ur Squamous Epith Cells 0 SEEN Urine Bacteria RARE Urine Mucus 0 SEEN 11/21/19 11/21/19 17:10 17:10 WBC RBC Hgb Hct MCV MCH MCHC RDW Std Deviation RDW Coeff of Ayesha Plt Count MPV Immature Gran % (Auto) Neut % (Auto) Lymph % (Auto) [place] % (Auto) Eos % (Auto) Baso % (Auto) Absolute Neuts (auto) Absolute Lymphs (auto) Nucleated RBC % Sodium Potassium Chloride Carbon Dioxide Anion Gap BUN Creatinine Estim Creat Clear Calc Est GFR (MDRD) Af Amer Est GFR (MDRD) Non-Af BUN/Creatinine Ratio Glucose Calcium Total Bilirubin 0.30 Direct Bilirubin 0.14 AST 16 ALT 21 Alkaline Phosphatase 65 Total Protein 7.4 Albumin 3.2 Globulin 4.2 Lipase 92 Serum , Qual NEGATIVE Urine Color Urine Clarity Urine pH Ur Specific [place] Urine Protein Urine Glucose (UA) Urine Ketones Urine Occult Blood Urine Nitrite Urine Bilirubin Urine Urobilinogen Ur Leukocyte Esterase Urine RBC Urine WBC Ur Squamous Epith Cells Urine Bacteria Urine Mucus - Medical Decision Making Patient was given morphine and Zofran for pain. On repeat evaluation she states her pain only improved from a 10 to an 8. She is given a dose of Bentyl and p.o. [place]. Work-up from a few days ago is reviewed. I did review her CT scan. At that time she had evidence of right inguinal and right lower quadrant davis wall hernia with loops of bowel. He has no focal tenderness to this area. Left ovarian dermoid is noted. She has no tenderness in the pelvis. 2 ventral hernias were noted on CAT scan. She has no palpable hernias or focal tenderness that I would expect if this pain were secondary to a hernia. I did check an oars report. Patient is only had one prescription in the past year. She will be given [place], Zofran, and we will switch her antacid to Protonix. She is to follow-up with Dr. Carpenter as previously instructed. ED Disposition - Plan for ED Patient: Disposition: Home or Assisted Living Diagnosis: Abdominal pain Instructions: ABDOMINAL PAIN, Unknown Cause, (Female) Prescriptions: Hydrocodone Bitart/Apap 5-325 [[place] 5MG-325MG] 1 tablet PO Q6H PRN PRN 3 Days #10 tablet PRN Reason: Pain Transmission Status: Sent to [facility] Pantoprazole Sodium [Protonix] 40 mg PO DAILY #20 tab Transmission Status: Pending to [facility] Ondansetron [Zofran Odt] 4 mg PO Q8H PRN PRN #10 tab PRN Reason: Nausea Transmission Status: Pending to [facility] Referrals: Yazan Carpenter MD [STAFF PHYSICIAN] - As soon as possible
[2019-11-21 17:36] LABS: Anion Gap 0 (5-15); BUN 11 mg/dL (7-18); Calcium,Total 8.7 mg/dL (8.5-10.1); Chloride 103 mmol/L (98-107); Creatinine, Serum 0.69 mg/dL (0.55-1.02); EST Glomerular Filtration Rate 102 mL/min (>60); Est Glom Filt Rate - Afr Amer 123 mL/min (>60); Estimated Creatinine Clearance 84.24 ml/min; Glucose 88 mg/dL (74-106); Potassium 4.2 mmol/L (3.5-5.1); Sodium Level 137 mmol/L (136-145)
[2019-11-21 17:45] LABS: Bacteria RARE /hpf (None Seen)
[2019-11-21] MEDS: Morphine 4 MG/ML Syringe IV (17:45)
[2019-11-21] MEDS: 0.9% Normal Saline 1,000 ML 150 ML IV (17:45)
[2019-11-21] MEDS: Ondansetron 4 MG/2 ML Vial IV (17:45)
[2019-11-21 17:59] LABS: Internal QC Validated? YES +Cl - CLEAR BKGD; Pregnancy, Serum, hCG Quali. NEGATIVE Negative
[2019-11-21 18:06] LABS: AST(SGOT) 16 U/L (15-37); Alanine Aminotransfer ALT/SGPT 21 U/L (13-56); Albumin, Serum 3.2 g/dL (3.2-5.0); Alkaline Phosphatase 65 U/L (45-117); Bilirubin, Direct 0.14 mg/dL (0.00-0.30); Globulin 4.2 g/dL (2.2-4.2); Lipase 92 U/L (73-393); Protein, Total 7.4 g/dL (6.4-8.2)
[2019-11-21 18:18] VITALS: RESP 16
[2019-11-21] MEDS: HYDROcodone Bitartrate/Apap 5/325 Tablet PO (18:53)
[2019-11-21] MEDS: Dicyclomine 20 MG/2 ML Vial IM (18:53)
[2019-11-21] MEDS: Mag Hydrox/Al Hydrox/Simeth 30 ML UDC PO (19:49)
[2019-11-21 20:09] VITALS: RESP 16
--- NOTE | 2019-11-21 20:11 | ED.RN ---
REVIEWED D/C INSTRUCTIONS, FOLLOW UP CARE, PRESCRIPTIONS, AND S/S THAT WOULD WARRANT A RETURN TO THE ED WITH PT. PT VERBALIZED AN UNDERSTANDING AND DENIES FURTHER QUESTIONS FOR THIS RN. PT SKIN P/W/D, RESP EVEN AND UNLABORED, PT A&O X 3, NO DISTRESS NOTED. PT AMBULATED OUT OF ED, GAIT STEADY.
--- NOTE | 2019-11-22 12:05 | ED.RN ---
PATIENT CALLED IN STATING THAT SHE WAS TO HAVE HER PRESCRIPTIONS TRANSMITTED TO [facility] IN [place]. THIS RN CALLED THIS PHARMACY AND THEY STATED WE RECEIVED THEM THIS MORNING AND THE PATIENT IS AWARE THAT THEY ARE HERE TO BE PICKED UP.
== END 2019-11-21 20:13 | disposition home or self-care (01) ==
PROVIDERS: Emergency Provider Emergency Medicine; Family Provider Family Medicine; PCP Family Medicine
DX: R10.10 Upper abdominal pain, unspecified (principal); K43.9 Ventral hernia without obstruction or gangrene; F32.9 Major depressive disorder, single episode, unspecified; F41.9 Anxiety disorder, unspecified; F17.200 Nicotine dependence, unspecified, uncomplicated; Z88.0 Allergy status to penicillin; Z79.899 Other long term (current) drug therapy; Z87.11 Personal history of peptic ulcer disease
CPT/HCPCS: 80048; 80076; 81001; 83690; 84703; 85025; 96361; 96372; 96374; 96375; 99284; J7030; A4216; J2405

== ENCOUNTER 2019-11-22 21:18 | Emergency (ER) | payer MEDICAID, SELFPAY ==
[2019-11-21 16:17] VITALS: BMI 52.2
[2019-11-22 21:20] VITALS: BP 149/82; PULSE 74; RESP 16; TEMP 37.1; O2SAT 97; BMI 52.5
--- NOTE | 2019-11-22 21:46 | ED.DCSUM_ITS ---
- ER Visit Summary Date of Service: 11/22/19 Chief Complaint: Nausea and vomiting History of Present Illness: The patient is a 39 F hernia and hernia repairs. Patient states that she has been seen multiple times in the last week with nausea vomiting. She is had negative lab work-ups and CAT scan showing a hernia but no acute obstruction. Patient states today she started having similar crampy abdominal pain with nausea and vomiting. She did have one episode of loose stool. No dysuria. No fever. Physical Examination: Middle-aged female vital signs are stable. She is actively vomiting in the emesis bag in the room. H EENT exam unremarkable. Neck nontender. Lungs clear to auscultation bilaterally. Heart regular rhythm rate about 75 no murmur. Abdomen soft. Nondistended. No signs of obstruction. Positive bowel sounds. No localizing tenderness. Right upper right lower quadrant unremarkable. Extremities moves all 4. No edema. Normal nylon mender strength. Normal dorsi plantarflexion. Neurologically she is awake and alert with no focal motor deficits. Test Results: I reviewed the patient's labs of the last week or so. They are basically unremarkable. I do not think they need to be repeated tonight. Nor do I think she needs repeat imaging. Emergency Department Course and Treatment: Treated with IV fluids and Phenergan. Repeat exam patient is abdomen is benign. Currently there is no incarcerated or strangulated hernia. There is no signs of bowel obstruction. She was also treated with Zofran and Benadryl for her nausea. Her last hernia was repaired by a surgeon at [facility]. She will follow-up with him as an outpatient. Treatment Plan: Zofran as needed for nausea. Follow-up with your general surgeon to discuss your hernia repair. Disposition: Discharge Impression: Acute nausea and vomiting History of her right inguinal hernia This note was generated with EARTH[employer] dictation software. It may contain incorrect words, spelling, and punctuation that were not noted in review of the chart prior to signing ED Disposition - Plan for ED Patient: Referrals: Ko Holt MD [Primary Care Provider] -
[2019-11-22] MEDS: 0.9% Normal Saline 1,000 ML 1000 ML IV (22:02)
[2019-11-22] MEDS: proMETHazine 25 MG/ML Syringe 12.5 MG IV (22:02)
--- NOTE | 2019-11-22 22:35 | ED.DEP ---
ED Disposition - Plan for ED Patient: Disposition: Home or Assisted Living Instructions: VOMITING (8y-Adult) Prescriptions: Ondansetron [Zofran Odt] 4 mg PO Q8H PRN PRN #10 tab PRN Reason: Nausea Prescription Printed Referrals: Ko Holt MD [Primary Care Provider] - As Needed Additional Instructions: Plenty of fluids and rest. Increase diet slowly. Zofran as needed for nausea. Call and follow-up with your general surgeon at [facility] to discuss with him having your right groin hernia repaired.
[2019-11-22] MEDS: Ondansetron 4 MG/2 ML Vial IV (22:40)
[2019-11-22] MEDS: DiphenhydrAMINE 50 MG/ML Syringe 25 MG IV (22:41)
[2019-11-22] MEDS: Ketorolac 30 MG/ML Syringe IV (22:41)
== END 2019-11-22 23:49 | disposition home or self-care (01) ==
PROVIDERS: Emergency Provider Emergency Medicine; Family Provider Family Medicine; PCP Family Medicine
DX: R11.2 Nausea with vomiting, unspecified (principal); K40.90 Unilateral inguinal hernia, without obstruction or gangrene, not specified as recurrent; Z72.0 Tobacco use
CPT/HCPCS: 96361; 96374; 96375; 99283; J7030; A4216; J2405

== ENCOUNTER 2019-12-19 18:05 | Emergency (ER) | payer MEDICAID, SELFPAY ==
[2019-12-19 18:06] VITALS: BP 117/69; PULSE 72; RESP 16; TEMP 36.5; O2SAT 96; BMI 46.9
[2019-12-19 19:22] VITALS: BP 118/66; PULSE 69; RESP 18; O2SAT 98
[2019-12-19] MEDS: 0.9% Normal Saline 1,000 ML 125 ML IV (19:22)
--- NOTE | 2019-12-19 19:31 | CT_ITS ---
STUDY: CT ABDOMEN AND PELVIS WITHOUT CONTRAST REASON FOR EXAM: Female, 39 years old. ABD PAIN, KNOWN HERNIA, HX HERNIA REPAIR AND DERMOID CYST RADIATION DOSAGE (If Supplied By Facility): CTDIvol = ( 23.60 ) mGy, DLP = ( 1480.63 ) mGycm TECHNIQUE: Transaxial images were obtained from the dome of the diaphragm to the symphysis pubis without oral contrast, and without intravenous contrast. Sagittal and coronal images were reconstructed. Individualized dose optimization techniques were used for this CT. COMPARISON: November 18, 2019 FINDINGS: The visualized lung bases are unremarkable. There is a stable subpleural calcification within the left lower lobe that is contiguous with the left lateral eighth rib. The lack of intravenous contrast limits evaluation of solid visceral organs. Normal liver. Normal gallbladder and extrahepatic biliary system. Normal spleen. Normal pancreas. Normal bilateral adrenal glands. Normal right kidney. Normal left kidney. Normal visualized stomach. There are prominent fluid-filled loops of small bowel within the mid and lower abdomen associated with a infraumbilical hernia in which a segment of small bowel is visualized. Normal colon. There is non-visualization of the appendix. Normal abdominal aorta. Normal inferior vena cava. Normal retroperitoneum. Normal urinary bladder. Within the left adnexa there is a stable fat-containing soft tissue focus that contains a calcification as well consistent with a left ovarian dermoid. There are supraumbilical and umbilical fat-containing hernias. Normal osseous structures. CT/Abdomen/Pelvis without Cont IMPRESSION: Prominent fluid-filled loops of small bowel associated with an infraumbilical ventral hernia containing a segment of small bowel, concerning for an evolving partial small bowel obstruction. Stable left ovarian dermoid. Stable fat-containing umbilical and supraumbilical hernias. Electronically Signed: Coby Valencia MD at 21:23 EST Tel , Service support ,
[2019-12-19 19:32] LABS: Absolute Lymphocyte Count 3.06 X10^3/uL (0.83-4.51); Absolute Neutrophil Count 5.7 X10^3/uL (2.0-7.7); Basophil# 0.08 X10^3/uL; Basophil% 0.8 % (0-1); Eosinophil# 0.25 X10^3/uL; Eosinophils% 2.6 % (0-5); Hematocrit 40.6 % (37-47); Hemoglobin 12.8 g/dL (12.0-15.0); Lymphocyte # 3.06 X10^3/ul (4.0); Lymphocyte % 31.3 % (19-41); Mean Corp Hgb Conc 31.5 g/dL (32-36); Mean Corpuscular Hgb 28.6 pg (27.0-32.0); Mean Corpuscular Volume 90.6 fL (81-99); Mean Platelet Vol. 11.6 fl (6.2-12.0); Monocyte# 0.72 X10^3/uL; Monocyte% 7.4 % (0-10); NRBC Flagged by Analyzer 0 % (0-5); Neutrophil # 5.65 X10^3/uL (2.7-7.7); Neutrophil % 57.6 % (47-70); Platelet Count 205 K/mm3 (150-450); RBC Distribution Width CV 13.2 % (11.6-14.6); RBC Distribution Width SD 44.2 fl (35.1-43.9); Red Blood Count 4.48 M/mm3 (4.2-5.4); White Blood Count 9.8 K/mm3 (4.4-11.0)
--- NOTE | 2019-12-19 19:35 | ED.DCSUM_ITS ---
History of Present Illness Chief Complaint: Abd Pain Informant: Patient Onset: - - Years Maximum Severity: Mild Narrative: The patient has history of chronic intermittent intermittent abdominal pain, anterior abdominal wall hernias, she is scheduled to see a GI surgeon at [facility] on the th of this month, indicates she has almost abdominal pain daily that is intermittent crampy, she reports she ate [employer] food today and had exacerbation of the abdominal pain. She is having normal bowel bladder habits no fever no cough no vomiting she takes her hand and she draws it diffusely in a big circular pattern across her abdominal area complaining of the nature of pain location Past Medical History - Allergies and Home Meds Allergies/Adverse Reactions: Allergies Penicillins Allergy (Verified 12/19/19 19:18) Hives Primary Care Physician: Ko Holt MD [Primary Care Provider] - Past Medical History: - Surgical History: herniorrhaphy, - - x3 Smoking Status: Current every day smoker Review of Systems ROS: - Chronic abdominal pain, ventral abdominal hernias, history of hernia repair General: Denies: Chills, Fever, Sweats Eyes: Denies: Visual changes - bilaterally, Diplopia ENT: Denies: Rhinorrhea, Sore throat Cardiovascular: Denies: Chest pain, Palpitations Respiratory: Denies: Dyspnea, Cough, Dyspnea on exertion Gastrointestinal: Reports: Abdominal pain. Denies: Nausea, Vomiting, Diarrhea, Melena, Hematochezia Genitourinary: Denies: Dysuria, Hematuria, Frequency Musculoskeletal: Denies: Back pain, Extremity Pain Skin: Denies: Rash, Wounds Neurological: Denies: Headache, Weakness, Numbness Physical Exam Vital Signs/Narrative: Vital Signs Temp Pulse Resp BP Pulse Ox 12/19/19 19:22 69 18 118/66 98 12/19/19 18:06 97.7 F L 72 16 117/69 96 General: Well nourished, Well developed, No Acute Distress Head: Normocephalic, Atraumatic Eyes: Perrl, EOMI ENT: Moist mucous membranes, No rhinorrhea Neck: Supple, Nontender Cardiovascular: Regular rate, Regular rhythm, No murmurs Respiratory: No distress, CTA bilaterally, Chest nontender Abdomen: Soft, Nontender, Nondistended, Normal bowel sounds, - - She has a very large abdomen, she complains of pain mostly to the right there is no rebound guarding organomegaly or focal area of discomfort she has a large pannus I really cannot feel any discrete hernia nor can she point in discrete area of pain Back: Nontender, Normal Inspection Extremities: Nontender, No edema Skin: Normal color, No rash Neurological: Alert, Oriented x3, Cranial nerves II-XII grossly intact, Normal Strength, Normal Sensation Psychological: Normal affect, Normal Mood Diagnostic/Tx/Re-eval - Medical Decision Making Differential is extensive Prior abdominal CTs have shown a right-sided abdominal hernia that contains small loops of bowel without incarceration or strangulation, this is a known chronic condition for her she is scheduled to see a surgeon as she has had prior anterior abdominal wall hernia repairs The screening labs are unremarkable, the abdominal CT shows ventral hernia in the area of the umbilicus containing a loop of bowel and then fluid-filled loops more proximal to that loop concern for early small bowel obstruction, patient reports she had prior ventral hernia repair surgery at [facility] she would like to see those physicians again today we have contacted [facility] transfer line will discuss case with them and arrange for transfer to that facility for further management of this condition We have explained her the need for NG tube and she is thinking about that option Disposition transfer to [facility] to undergo surgery evaluation Final impression abdominal pain ventral hernia with bowel loops possible small bowel obstruction ED Disposition - Plan for ED Patient: Diagnosis: Bowel obstruction ventral hernia Referrals: Ko Holt MD [Primary Care Provider] -
[2019-12-19] MEDS: Ondansetron 4 MG/2 ML Vial IV (19:46)
[2019-12-19] MEDS: morphine 8 MG/ML Syringe IV (19:46)
[2019-12-19] MEDS: 0.9% Normal Saline 1,000 ML 999 ML IV (19:47)
[2019-12-19 19:49] LABS: ALB/GLOB Ratio 0.8 RATIO (0.9-2.4); AST(SGOT) 22 U/L (15-37); Alanine Aminotransfer ALT/SGPT 28 U/L (13-56); Albumin, Serum 2.9 g/dL (3.2-5.0); Alkaline Phosphatase 55 U/L (45-117); Anion Gap 2 (5-15); BUN 13 mg/dL (7-18); BUN/Creat Ratio 18.1 RATIO (10-20); Calcium,Total 8.9 mg/dL (8.5-10.1); Chloride 108 mmol/L (98-107); Creatinine, Serum 0.72 mg/dL (0.55-1.02); EST Glomerular Filtration Rate 97 mL/min (>60); Est Glom Filt Rate - Afr Amer 117 mL/min (>60); Estimated Creatinine Clearance 92.38 ml/min; Globulin 3.6 g/dL (2.2-4.2); Glucose 88 mg/dL (74-106); Lipase 107 U/L (73-393); Potassium 3.5 mmol/L (3.5-5.1); Protein, Total 6.5 g/dL (6.4-8.2); Sodium Level 141 mmol/L (136-145)
[2019-12-19 20:35] LABS: Bacteria 0 SEEN /hpf (None Seen); Red Blood Cells-Urine 0 SEEN /hpf (0-5); White Blood Cells 0 SEEN /hpf (0-5)
[2019-12-19] MEDS: Dicyclomine 10 MG Capsule 20 MG PO (20:45)
[2019-12-19 20:47] LABS: Color, Urine Yellow (Yellow); Glucose, Dipstick Normal (Normal); Ketone-Dipstick 5 mg/dl (Negative); Leukocyte Esterase-Dipstick Negative /ul (Negative); Nitrite-Dipstick Negative (Negative); Occult Blood-Urine Negative /ul (Negative); Protein-Dipstick Negative (Negative); Urine Bilirubin Dipstick Negative (Negative); Urine Clarity Sl. Cloudy (Clear); Urine Urobilinogen Normal (Normal)
[2019-12-19 20:54] LABS: Internal QC Validated? YES +Cl - CLEAR BKGD; Pregnancy, Serum, hCG Quali. NEGATIVE Negative
[2019-12-19 20:57] LABS: Mucous, Urine 1+ /hpf (<or=2+); Squamous Epithelial Cells - UA 0-5 SEEN /hpf (5-10)
[2019-12-19 21:00] VITALS: BP 119/54; PULSE 72; RESP 16; O2SAT 91
--- NOTE | 2019-12-19 22:50 | RAD_ITS ---
STUDY: X-RAY - ABDOMEN/PELVIS REASON FOR EXAM: Female, 39 years old. NG PLACEMENT TECHNIQUE: 1 view of the upper abdomen was obtained. COMPARISON: Chest radiograph dated January 16, 2019 FINDINGS: There is a stable left basilar calcification. There is a nasogastric tube in place terminating within the expected region of the gastric fundus. There is an unremarkable bowel gas pattern. There is no demonstrated free abdominal air. Normal soft tissue structures. Normal visualized osseous structures. RAD/Abdomen Single View (Portable) IMPRESSION: Nasogastric tube in a satisfactory position. Electronically Signed: Coby Valencia MD at 23:02 EST Tel , Service support ,
[2019-12-19 23:56] VITALS: PULSE 74; RESP 18; O2SAT 97
[2019-12-20 00:08] VITALS: BP 114/74; PULSE 71; RESP 18; O2SAT 98
[2019-12-20] MEDS: Ondansetron 4 MG/2 ML Vial IV (00:51)
== END 2019-12-20 00:35 | disposition short-term general hospital (02) ==
PROVIDERS: Emergency Medicine; Emergency Provider Emergency Medicine; PCP Family Medicine
DX: K43.6 Other and unspecified ventral hernia with obstruction, without gangrene (principal); F17.200 Nicotine dependence, unspecified, uncomplicated
CPT/HCPCS: 74018; 74176; 80053; 81001; 83690; 84703; 85025; 87086; 96361; 96374; 96375; 96376; 99284; J7030; A4216; J2405

== ENCOUNTER 2019-12-22 20:29 | Emergency (ER) | payer MEDICAID, SELFPAY ==
[2019-12-22 20:30] VITALS: BP 117/57; PULSE 85; RESP 16; TEMP 36.6; O2SAT 97; BMI 51.7
--- NOTE | 2019-12-22 21:44 | CT_ITS ---
STUDY: CT ABDOMEN AND PELVIS WITHOUT CONTRAST REASON FOR EXAM: Female, 39 years old. Hernia. Pain. RADIATION DOSAGE (If Supplied By Facility): CTDIvol = ( 31.25 ) mGy, DLP = ( 1717.62 ) mGycm TECHNIQUE: Transaxial images were obtained from the dome of the diaphragm to the symphysis pubis without oral contrast, and without intravenous contrast. Sagittal and coronal images were reconstructed. Individualized dose optimization techniques were used for this CT. COMPARISON: 12/19/2019 FINDINGS: Evaluation of the abdominal viscera is limited in the absence of intravenous contrast. The visualized lung bases are clear. The visualized portions of the heart and pericardium are within normal limits. There are no calcified gallstones present. The liver demonstrates an unremarkable unenhanced appearance. The spleen is normal in size. The pancreas demonstrates an unremarkable unenhanced appearance. The adrenal glands are within normal limits. There are no renal or ureteral stones. There is no hydronephrosis. Normal visualized stomach. Again noted is a fat-containing umbilical hernia. There is a stable ventral hernia below the umbilicus which contains fat and small bowel. The small bowel is mildly dilated, consistent with a small bowel obstruction. This is stable in appearance when compared with the prior exam. The appendix is visualized and appears normal. There is a stable fat density left adnexal lesion which likely represents a dermoid. The aorta is normal in caliber. There is no abdominal or pelvic free air, free fluid, fluid collection or lymphadenopathy. There are no destructive osseous lesions. CT/Abdomen/Pelvis without Cont IMPRESSION: Stable ventral hernia below the umbilicus which contains fat and dilated small bowel loops. Stable mildly dilated loops of small bowel in the abdomen which likely represents a small bowel obstruction contained within the hernia sac. Stable fat-containing umbilical hernia. Electronically Signed: Aaron Fernández, at 22:33 EST Tel , Service support ,
--- NOTE | 2019-12-22 21:45 | ED.VIS.GI ---
History of Present Illness Chief Complaint: Abd Pain Informant: Patient - Abdominal Pain/Flank Pain Onset: Today Context: Gradual Onset Timing: Continuous Quality: Aching, Burning, Cramping Location: Diffuse - Nausea/Vomiting/Emesis GI Symptom: Nausea Onset: Today Narrative: Patient is a 39-year-old female with history of abdominal pain and multiple hernia's with repair 2-1/2 years ago at [facility] presenting with recurrent abdominal pain. Patient states she had a partial small bowel obstruction that was treated 4 days ago. She was initially seen in our ER and then transferred to [facility]. She states when she was there she had an NG tube and they pushed her hernia back in and did not do surgery. She is planning on having an evaluation with Dr. Ventura at [facility] on December 30 for repair of her hernia. She does not think she should have to wait that long because she is continued to have pain. Patient states that she was feeling better after she was discharged but then today she started having abdominal pain again. She has associated nausea. She feels that there is a large gas bubble in her abdomen. She is concerned she has another obstruction. She denies any urinary symptoms or bowel symptoms. She denies any fever or chills. She has any chest pain or difficulty breathing. She denies any other complaints at this time. Past Medical History - Allergies and Home Meds Allergies/Adverse Reactions: Allergies Penicillins Allergy (Verified 12/22/19 20:32) [facility] Primary Care Physician: Ko Holt MD [Primary Care Provider] - Past Medical History: - - Asthma, GERD Surgical History: herniorrhaphy, - - x3 Lives: With Family Smoking Status: Current every day smoker Review of Systems General: Denies: Chills, Fever, Sweats Eyes: Denies: Visual changes - bilaterally, Diplopia ENT: Denies: Rhinorrhea, Sore throat Cardiovascular: Denies: Chest pain, Palpitations Respiratory: Denies: Dyspnea, Cough, Dyspnea on exertion Gastrointestinal: Reports: Abdominal pain, Nausea. Denies: Vomiting, Diarrhea, Melena, Hematochezia Genitourinary: Denies: Dysuria, Hematuria, Frequency Musculoskeletal: Denies: Back pain, Extremity Pain Skin: Denies: Rash, Wounds Neurological: Denies: Headache, Weakness, Numbness Physical Exam Vital Signs/Narrative: Vital Signs Temp Pulse Resp BP Pulse Ox 02/04/20 20:30 98 F 85 16 117/57 L 97 Inital Vital Signs reviewed: Yes General: Well nourished, Well developed, Obese, No Acute Distress Head: Normocephalic, Atraumatic Eyes: Perrl, EOMI ENT: Moist mucous membranes, No rhinorrhea Neck: Supple, Nontender Cardiovascular: Regular rate, Regular rhythm, No murmurs Respiratory: No distress, CTA bilaterally, Chest nontender Abdomen: Soft, Nondistended, Normal bowel sounds, Tender - Diffuse, patient points to her mid abdomen as the area of her pain but cannot localize it to any one spot, - - No palpable mass or erythema of the abdominal wall however patient is quite obese and that this does limit abdominal exam. Negative for: Guarding, Rebound tenderness Back: Nontender, Normal Inspection Extremities: Nontender, No edema Skin: Normal color, No rash Neurological: Alert, Oriented x3, Cranial nerves II-XII grossly intact, Normal Strength, Normal Sensation Psychological: Normal affect, Normal Mood Diagnostic/Tx/Re-eval Clinical Impression(s) from Imaging Studies Abdomen/Pelvis CT 12/22/19 21:44 IMPRESSION: Stable ventral hernia below the umbilicus which contains fat and dilated small bowel loops. Stable mildly dilated loops of small bowel in the abdomen which likely represents a small bowel obstruction contained within the hernia sac. Stable fat-containing umbilical hernia. Electronically Signed: Aaron Pradeep, at 22:33 EST Tel , Service support , Laboratory Data 12/22/19 12/22/19 12/22/19 21:45 22:00 22:00 WBC 9.6 RBC 4.30 Hgb 12.2 Hct 39.7 MCV 92.3 MCH 28.4 MCHC 30.7 L RDW Std Deviation 46.1 H RDW Coeff of Ayesha 13.6 Plt Count 202 MPV 11.8 Immature Gran % (Auto) 0.200 Neut % (Auto) 61.0 Lymph % (Auto) 29.6 [place] % (Auto) 6.9 Eos % (Auto) 1.6 Baso % (Auto) 0.7 Absolute Neuts (auto) 5.9 Absolute Lymphs (auto) 2.84 Nucleated RBC % 0 Sodium 141 Potassium 3.4 L Chloride 106 Carbon Dioxide 33.0 H Anion Gap 2 L BUN 8 Creatinine 0.66 Estim Creat Clear Calc 88.07 Est GFR (MDRD) Af Amer 128 Est GFR (MDRD) Non-Af 106 BUN/Creatinine Ratio 12.0 Glucose 86 Lactic Acid Calcium 9.0 Total Bilirubin 0.30 AST 16 ALT 24 Alkaline Phosphatase 52 Total Protein 6.4 Albumin 2.8 L Globulin 3.6 Albumin/Globulin Ratio 0.8 L Lipase 84 Serum , Qual Urine Color Yellow Urine Clarity Clear Urine pH 7.0 Ur Specific [place] 1.010 Urine Protein 15 H Urine Glucose (UA) Normal Urine Ketones 5 H Urine Occult Blood Negative Urine Nitrite Negative Urine Bilirubin Negative Urine Urobilinogen 4 H Ur Leukocyte Esterase 25 H Urine RBC 0 SEEN Urine WBC 0 SEEN Ur Squamous Epith Cells 0-5 SEEN Urine Bacteria 0 SEEN Urine Mucus 0 SEEN 12/22/19 12/22/19 22:00 22:00 WBC RBC Hgb Hct MCV MCH MCHC RDW Std Deviation RDW Coeff of Ayesha Plt Count MPV Immature Gran % (Auto) Neut % (Auto) Lymph % (Auto) [place] % (Auto) Eos % (Auto) Baso % (Auto) Absolute Neuts (auto) Absolute Lymphs (auto) Nucleated RBC % Sodium Potassium Chloride Carbon Dioxide Anion Gap BUN Creatinine Estim Creat Clear Calc Est GFR (MDRD) Af Amer Est GFR (MDRD) Non-Af BUN/Creatinine Ratio Glucose Lactic Acid 1.0 Calcium Total Bilirubin AST ALT Alkaline Phosphatase Total Protein Albumin Globulin Albumin/Globulin Ratio Lipase Serum , Qual NEGATIVE Urine Color Urine Clarity Urine pH Ur Specific [place] Urine Protein Urine Glucose (UA) Urine Ketones Urine Occult Blood Urine Nitrite Urine Bilirubin Urine Urobilinogen Ur Leukocyte Esterase Urine RBC Urine WBC Ur Squamous Epith Cells Urine Bacteria Urine Mucus - Medical Decision Making Patient is evaluated for recurrent abdominal pain. She was transferred to [facility] for evaluation of hernia causing a small bowel obstruction 4 days ago. She was discharged home the following day. Patient symptoms returned today. They are not as severe as they were before but similar. She is not having any vomiting this time. A repeat CT of the abdomen and pelvis without contrast shows stable ventral hernia with bowel in its as well as dilation concerning for an obstruction. This patient is receiving her care through [facility] she request to be transferred back. She does not have an elevated lactic acid level or leukocytosis. I am not concerned for strangulated hernia at this time. I do not think she needs emergent surgery at this time. After reviewing the CT I did try to reduce the hernia myself but was unsuccessful. Patient receives IV fluids and morphine for pain control while in the emergency room. Patient accepted by Dr. Morris at [facility]. She is agreeable this plan. She is stable at time of disposition. ED Disposition - Plan for ED Patient: Disposition: [facility] Diagnosis: Small bowel obstruction, Ventral hernia with obstruction Referrals: Ko Holt MD [Primary Care Provider] -
[2019-12-22] MEDS: 0.9% Normal Saline 1,000 ML 1000 ML IV (22:07)
[2019-12-22] MEDS: Ondansetron 4 MG/2 ML Vial IV (22:07)
[2019-12-22 22:08] LABS: Bacteria 0 SEEN /hpf (None Seen); Mucous, Urine 0 SEEN /hpf (<or=2+); Red Blood Cells-Urine 0 SEEN /hpf (0-5); White Blood Cells 0 SEEN /hpf (0-5)
[2019-12-22 22:17] LABS: Absolute Lymphocyte Count 2.84 X10^3/uL (0.83-4.51); Absolute Neutrophil Count 5.9 X10^3/uL (2.0-7.7); Basophil# 0.07 X10^3/uL; Basophil% 0.7 % (0-1); Eosinophil# 0.15 X10^3/uL; Eosinophils% 1.6 % (0-5); Hematocrit 39.7 % (37-47); Hemoglobin 12.2 g/dL (12.0-15.0); Lymphocyte # 2.84 X10^3/ul (4.0); Lymphocyte % 29.6 % (19-41); Mean Corp Hgb Conc 30.7 g/dL (32-36); Mean Corpuscular Hgb 28.4 pg (27.0-32.0); Mean Corpuscular Volume 92.3 fL (81-99); Mean Platelet Vol. 11.8 fl (6.2-12.0); Monocyte# 0.66 X10^3/uL; Monocyte% 6.9 % (0-10); NRBC Flagged by Analyzer 0 % (0-5); Neutrophil # 5.86 X10^3/uL (2.7-7.7); Platelet Count 202 K/mm3 (150-450); RBC Distribution Width CV 13.6 % (11.6-14.6); RBC Distribution Width SD 46.1 fl (35.1-43.9); White Blood Count 9.6 K/mm3 (4.4-11.0)
[2019-12-22 22:19] LABS: Color, Urine Yellow (Yellow); Glucose, Dipstick Normal (Normal); Ketone-Dipstick 5 mg/dl (Negative); Leukocyte Esterase-Dipstick 25 /ul (Negative); Nitrite-Dipstick Negative (Negative); Occult Blood-Urine Negative /ul (Negative); Protein-Dipstick 15 mg/dl (Negative); Urine Bilirubin Dipstick Negative (Negative); Urine Clarity Clear (Clear); Urine Urobilinogen 4 mg/dl (Normal)
[2019-12-22 22:25] LABS: Squamous Epithelial Cells - UA 0-5 SEEN /hpf (5-10)
[2019-12-22 22:26] LABS: Internal QC Validated? YES +Cl - CLEAR BKGD; Pregnancy, Serum, hCG Quali. NEGATIVE Negative
[2019-12-22 22:29] VITALS: BP 116/81; PULSE 72; RESP 16; O2SAT 98
[2019-12-22 22:35] LABS: ALB/GLOB Ratio 0.8 RATIO (0.9-2.4); AST(SGOT) 16 U/L (15-37); Alanine Aminotransfer ALT/SGPT 24 U/L (13-56); Albumin, Serum 2.8 g/dL (3.2-5.0); Alkaline Phosphatase 52 U/L (45-117); Anion Gap 2 (5-15); BUN 8 mg/dL (7-18); Chloride 106 mmol/L (98-107); Creatinine, Serum 0.66 mg/dL (0.55-1.02); EST Glomerular Filtration Rate 106 mL/min (>60); Est Glom Filt Rate - Afr Amer 128 mL/min (>60); Estimated Creatinine Clearance 88.07 ml/min; Globulin 3.6 g/dL (2.2-4.2); Glucose 86 mg/dL (74-106); Lipase 84 U/L (73-393); Potassium 3.4 mmol/L (3.5-5.1); Protein, Total 6.4 g/dL (6.4-8.2); Sodium Level 141 mmol/L (136-145)
[2019-12-22] MEDS: morphine 8 MG/ML Syringe 6 MG IV (22:48)
[2019-12-23 00:56] VITALS: BP 124/63; PULSE 78; RESP 16; TEMP 37.2; O2SAT 98
[2019-12-23 01:04] VITALS: BP 124/63; PULSE 78; RESP 16; TEMP 37.2; O2SAT 98
== END 2019-12-23 01:34 | disposition short-term general hospital (02) ==
PROVIDERS: Emergency Provider Emergency Medicine; PCP Family Medicine
DX: K43.6 Other and unspecified ventral hernia with obstruction, without gangrene (principal); J45.909 Unspecified asthma, uncomplicated; K21.9 Gastro-esophageal reflux disease without esophagitis; F32.9 Major depressive disorder, single episode, unspecified; Z72.0 Tobacco use; Z79.899 Other long term (current) drug therapy
CPT/HCPCS: 74176; 80053; 81001; 83605; 83690; 84703; 85025; 96361; 96374; 96375; 99284; J7030; J2405

== ENCOUNTER 2020-08-04 22:41 | Emergency (ER) | payer MEDICAID, SELFPAY ==
[2020-08-04 22:41] VITALS: BP 113/78; PULSE 86; RESP 20; TEMP 35.9; O2SAT 99; BMI 52.5
--- NOTE | 2020-08-04 23:00 | RAD_ITS ---
STUDY: X-RAY - PELVIS AND RIGHT HIP REASON FOR EXAM: Female, 40 years old. Lower right back and hip pain due to a fall tonight. TECHNIQUE: 2 views of the pelvis and hip. COMPARISON: None. FINDINGS: There is a non-specific bowel gas pattern. Hernia mesh. Normal bilateral iliac wings, sacroiliac joints and visualized sacrum. Normal bilateral superior and inferior pubic rami. Normal pubic symphysis. Normal bilateral ischial tuberosities. Normal visualized femoral head. Normal acetabulum. Normal hip joint. RAD/HIP, UNI W/ Pelvis 2-3 Views IMPRESSION: No acute osseous injury is evident. Electronically Signed: Luis Armando Morton MD at 23:23 EDT Tel , Service support ,
--- NOTE | 2020-08-04 23:01 | ED.VISSUMM ---
- ER Visit Summary Date of Service: 08/04/20 Chief Complaint: [Right hip and back pain] History of Present Illness: The patient is a 40 F [presents to the emergency department with pain in her right hip and back is around 8 PM. Patient states that she was starting to bend over to change the baby's diaper when she felt a sudden pain in her right hip and low back area. Patient states that this sudden pain caused her to fall back onto a coffee table which she broke. She has severe pain when she tries to move. Patient states that at rest really does not have much pain. She denies any pain radiating down her leg. She denies weakness in extremity. She denies paresthesias. She denies any other injuries. Patient denies urinary symptoms.] Physical Examination: [HEENT-PERRLA, EOMI. Cranial nerves II through XII grossly intact. TMs clear. Mucous membranes moist. No adenopathy. Cardiovascular-regular rate and rhythm without murmur or ectopy Lungs-clear to auscultation, chest wall stable without crepitus or subcu emphysema Abdomen-normoactive bowel sounds, soft, nontender, no rebound or rigidity, no peritoneal signs. Back exam-no tenderness to palpation over the thoracic or lumbar spine noted. Patient has some mild tenderness over the right hip and right buttock that seems to reproduce her pain. Patient has pain with straight leg raising at approximately 30 degrees. Deep tendon reflexes are plus out of 4 bilaterally at the patella and Achilles. Patient has normal 5 extension bilaterally. She is neurovascular intact. No external evidence of trauma to her skin. Extremities-intact ?4, normal range of motion, normal pulses, atraumatic] Test Results: [X-rays of the right hip and pelvis obtained were read by myself as no evidence of fractures.] Emergency Department Course and Treatment: [Patient was offered pain medication and she wanted something oral so she was given 1 [place] p.o.] Treatment Plan: [To continue with her Robaxin and meloxicam. I will give her a prescription for [place] for pain. She did not want crutches therefore was requesting a walker which she will be given. Patient advised to follow-up with her primary care physician within the next 5 to 7 days. Advised to return if worsening pain, weakness extremity, change in bowel or bladder function, or condition should worsen anyway. At this point there is no evidence for cauda equina.] Disposition: [Discharged home in stable condition.] Impression: [Sciatica Mechanical fall Contusion back] This note was generated with [employer] dictation software. It may contain incorrect words, spelling, and punctuation that were not noted in review of the chart prior to signing ED Disposition - Plan for ED Patient: Referrals: Ko Holt MD [Primary Care Provider] -
[2020-08-04] MEDS: HYDROcodone Bitartrate/Apap 5/325 Tablet PO (23:17)
--- NOTE | 2020-08-04 23:17 | ED.DEP ---
ED Disposition - Plan for ED Patient: Instructions: ED LUMBAR RADICULOPATHY, ED Contusion Back Prescriptions: Hydrocodone Bitart/Apap 5-325 [[place] 5MG-325MG] 1 tab PO Q4H PRN PRN 2 Days #14 tab PRN Reason: Pain Prescription Printed Referrals: Ko Holt MD [Primary Care Provider] - 5-7 Days
[2020-08-04 23:30] VITALS: BP 113/78; PULSE 86; RESP 20; O2SAT 99
== END 2020-08-04 23:42 | disposition home or self-care (01) ==
LOC: ED 23:23
PROVIDERS: Emergency Provider Emergency Medicine; PCP Family Medicine
DX: M54.30 Sciatica, unspecified side (principal); W19.XXXA Unspecified fall, initial encounter
CPT/HCPCS: 73502; 99283

== ENCOUNTER 2021-04-25 22:48 | Emergency (ER) | payer MEDICAID, SELFPAY ==
[2021-04-25 22:49] VITALS: BP 138/85; PULSE 87; RESP 18; TEMP 36.2; O2SAT 99; BMI 52.9
--- NOTE | 2021-04-25 23:08 | RAD_ITS ---
STUDY: X-RAY CHEST REASON FOR EXAM: Female, 40 years old. cough and sob TECHNIQUE: Single AP portable view of the chest. COMPARISON: 01/16/2019 FINDINGS: The lungs are clear and expanded. There is no demonstrated pleural abnormality. Normal size heart. Normal mediastinum and fatoumata. Normal visualized pulmonary arteries. Normal visualized aortic arch and descending thoracic aorta. Normal visualized thoracic spine. Normal visualized ribs, clavicles, and shoulders. There is no demonstrated abnormality of the visualized soft tissue structures of the upper abdomen. RAD/Chest 1 View (Portable) IMPRESSION: Normal x-ray examination of the chest. Electronically Signed: Sorin George DO at 0:32 EDT Tel , Service support ,
--- NOTE | 2021-04-25 23:09 | EX.ED.DYSGE1 ---
HPI History of Present Illness Chief Complaint: Cough Informant: patient Narrative Narrative: 40-year-old female with a history of COPD and asthma who still smokes presents with a several day history of cough and shortness of breath. She states she has been using her albuterol rescue inhaler more than normal and will most likely need another one. She states her aerosol machine at home tubing is cracked and not functional and she is almost out of the solution. She states that her son came home and was sick and drank out of her cup and she believes that is where she got sick. She states that he has not been checked for Covid. She notes subjective fever and chills. She notes a green sputum production. [facility] Medical History (Updated 04/25/21 @ 23:[address] Dariel Gaona ) Anxiety Asthma COPD (chronic obstructive pulmonary disease) Depression Home Medications albuterol sulfate [Ventolin Hfa (SP)] 1 puff INHALATION Q4H PRN PRN 07/21/15 [History Last Taken 12/19/19] loratadine [Claritin] 10 mg PO DAILY 05/19/16 [History Last Taken 12/19/19] dicyclomine 20 mg PO TIDAC PRN 07/22/19 [History Last Taken 12/19/19] citalopram 40 mg PO DAILY 09/21/19 [History Last Taken 12/19/19] budesonide-formoterol 2 puff INHALATION BID 11/18/19 [History Last Taken 12/19/19] methocarbamol 500 mg PO TID 11/18/19 [History Last Taken 12/15/19] wciwxayh-zdm-MW-lycopen-lutein 1 ea PO DAILY 11/18/19 [History Last Taken 12/19/19] pantoprazole 40 mg PO DAILY #20 tab 11/21/19 [Rx Last Taken Unknown] albuterol sulfate 2.5 mg INHALATION Q4H PRN #25 vial 04/25/21 [Rx Last Taken Unknown] albuterol sulfate [Ventolin HFA] 2 puff INHALATION Q4H PRN PRN #1 inhaler 04/25/21 [Rx Last Taken Unknown] prednisone 60 mg PO DAILY #12 tablet 04/25/21 [Rx Last Taken Unknown] Allergy/AdvReac Type Severity Reaction Status Date / Time Penicillins Allergy Hives Verified 04/25/21 22:49 no surgical history (Noncontributory) Social History (Updated 04/25/21 @ 23:[address] Dariel Gaona, DO) Smoking Status: Current every day smoker substance use type: does not use ROS ROS ED Constitutional Constitutional ED: Reports chills and subjective; Denies weight loss Eyes Eyes: Denies change in vision or diplopia ENT ENT ED: Reports rhinorrhea; Denies ear pain or sore throat Cardiovascular Cardiovascular: Denies chest pain, orthopnea, palpitations or racing heartbeat Respiratory/Chest Respiratory/Chest: Reports cough and dyspnea; Denies orthopnea Gastrointestinal Gastrointestinal: Denies abdominal pain, diarrhea, nausea or vomiting Genitourinary Genitourinary ED: Denies dysuria, hematuria or urinary frequency Musculoskeletal Musculoskeletal: Reports myalgias; Denies arthralgias Integumentary Denies abscess or rash Neurologic Neurologic: Denies headache(s) or weakness Psychiatric Psychiatric: Denies anxiety, depression, suicidal ideation or suicidal thoughts Endocrine Endocrinology: Denies polydipsia, polyphagia or polyuria Allergic/Immunologic Allergic/Immunologic ED: Denies mouth swelling, tongue swelling or urticaria EXAM Physical Exam Const Vital Signs: 04/25/21 22:49 Temperature 97.1 F L Temperature Source Temporal Pulse Rate 87 Respiratory Rate 18 Blood Pressure 138/85 H Blood Pressure Mean 102 Pulse Ox 99 Oxygen Delivery Method Room Air Positive well nourished and well developed General Appearance ED: well developed HEENT Reports normocephalic, head/scalp atraumatic and moist mucous membranes Eyes PERRL and EOMs intact bilaterally Neck no lymphadenopathy, supple and no JVD Resp Auscultation: rhonchi and wheezes Cardio regular rate, regular rhythm and no murmurs GI normal to inspection, nondistended, normoactive bowel sounds and non-tender Palpation: soft Back/Spine no CVA tenderness and normal ROM Extremity normal to inspection General Extremety ED: Negative for edema General Extremity: Negative for edema Neuro oriented x3 and CN's II-XII intact bilaterally Sensorium / Orientation: alert Motor Exam: strength 5/5 throughout Psych mental status grossly normal Mood & Affect: Negative for depressed or tearful Skin no rashes or lesions noted and no wounds Discharge Plan Triage Chief Complaint: Cough ED Provider: Dariel Gaona Dx/Rx/DC Orders Clinical Impression: Acute bronchitis with bronchospasm Instructions: ED Bronchitis with Wheezing (Adult) Prescriptions: New albuterol sulfate 2.5 MG/3 ML solution for nebulization 2.5 mg inhalation Q4H PRN Qty: 25 RF: 0 prednisone 20 MG tablet 60 mg PO DAILY Qty: 12 RF: 0 albuterol sulfate [Ventolin HFA] 1 INHALER inhaler 2 puff inhalation Q4H PRN PRN (Reason: Wheezing) Qty: 1 RF: 0 No Action albuterol sulfate [Ventolin HFA] 1 INHALER inhaler 1 puff inhalation Q4H PRN PRN (Reason: Wheezing) RF: 0 loratadine [Allergy Relief (loratadine)] 10 MG tablet 10 mg PO DAILY RF: 0 dicyclomine 10 MG capsule 20 mg PO TIDAC PRN (Reason: cramping) RF: 0 citalopram 40 MG tablet 40 mg PO DAILY RF: 0 methocarbamol 500 MG tablet 500 mg PO TID RF: 0 hvyyynuq-pes-PB-lycopen-lutein 1 EACH tablet 1 ea PO DAILY RF: 0 budesonide-formoterol 1 INHALER inhaler 2 puff inhalation BID RF: 0 pantoprazole 40 MG tablet 40 mg PO DAILY Qty: 20 RF: 0 Primary Care Provider: Ko Holt Referrals: Ko Holt MD [Primary Care Provider] - As Needed Disposition Disposition: Home, self care
[2021-04-25] MEDS: Ipratropium/Albuterol Sulfate 3 ML AMPUL.NEB INHALATION (23:19)
[2021-04-25 23:20] VITALS: PULSE 88; RESP 18
[2021-04-25] MEDS: predniSONE 20 MG Tablet 60 MG PO (23:46)
== END 2021-04-26 00:14 | disposition home or self-care (01) ==
LOC: ED 23:18
PROVIDERS: Emergency Provider Emergency Medicine; PCP Family Medicine
DX: J20.9 Acute bronchitis, unspecified (principal); F17.200 Nicotine dependence, unspecified, uncomplicated
CPT/HCPCS: 71045; 87426; 94640; 99281; 99283

== ENCOUNTER 2023-07-30 18:28 | Emergency (ER) | payer MEDICAID, SELFPAY ==
[2023-07-30 18:29] VITALS: BP 119/75; PULSE 95; RESP 16; TEMP 35.7; O2SAT 96; BMI 53.9
--- NOTE | 2023-07-30 19:23 | EX.ED.DYSGE1 ---
HPI History of Present Illness Chief Complaint: Other, Pain/Inj Informant: patient Narrative Narrative: 4-day history of having generalized tremors and shakiness. 5 days ago placed on doxycycline and Medrol Dosepak by urgent care. She does have reported diagnosed history of COPD 1 pack/day smoking. Reporting cough productive sputum. Sick contacts with her child went back to school. She was wheezing at that time. Wheezing improved since being on steroids. She reports additional 2 tabs of doxycycline left. No history of similar with steroids in the past. However states 10 years ago with these tremors and shakes she was found to have electrolyte abnormalities with low potassium and magnesium requiring hospitalization. She denies any weakness. She denies any diuretics. Denies any recent vomiting or diarrhea. There is no confusion. Prior similar symptoms: Yes PFSH [facility] Medical History Anxiety Asthma COPD (chronic obstructive pulmonary disease) Depression Home Medications albuterol sulfate 90 mcg/actuation aerosol inhaler (Ventolin HFA) 1 puff inhalation Q4H PRN PRN Wheezing 07/21/15 [History Last Taken 12/19/19] loratadine 10 mg tablet (Allergy Relief (loratadine)) 10 mg PO DAILY 05/19/16 [History Last Taken 12/19/19] dicyclomine 10 mg capsule 20 mg PO TIDAC PRN cramping 07/22/19 [History Last Taken 12/19/19] citalopram 40 mg tablet 40 mg PO DAILY 09/21/19 [History Last Taken 12/19/19] budesonide-formoterol HFA 160 mcg-4.5 mcg/actuation aerosol inhaler 2 puff inhalation BID 11/18/19 [History Last Taken 12/19/19] methocarbamol 500 mg tablet 500 mg PO TID 11/18/19 [History Last Taken 12/15/19] jgigsxgc-ryf-ttcrw acid 0.4 mg-lycopene 300 mcg-lutein 250 mcg tablet 1 ea PO DAILY 11/18/19 [History Last Taken 12/19/19] pantoprazole 40 mg tablet,delayed release 40 mg PO DAILY #20 tabs 11/21/19 [Rx Last Taken Unknown] albuterol sulfate 2.5 mg/3 mL (0.083 %) solution for nebulization 2.5 mg (3 mL) inhalation Q4H PRN #25 vials 04/25/21 [Rx Last Taken Unknown] albuterol sulfate 90 mcg/actuation aerosol inhaler (Ventolin HFA) 2 puff inhalation Q4H PRN PRN Wheezing ##1 04/25/21 [Rx Last Taken Unknown] prednisone 20 mg tablet 60 mg (3 x 20 mg) PO DAILY #12 TABLETS 04/25/21 [Rx Last Taken Unknown] azithromycin 250 mg tablet (Zithromax Z-Reji) See Rx Instructions PO .COMPLEX #6 tabs 04/26/21 [Rx Last Taken Unknown] Allergy/AdvReac Type Severity Reaction Status Date / Time Penicillins Allergy Hives Verified 07/30/23 18:28 Social History Smoking Status: Current every day smoker tobacco type: cigarettes substance use type: does not use ROS ROS ED Constitutional Constitutional ED: Denies chills, fever(s) or sweats Eyes Eyes: Denies change in vision ENT ENT ED: Denies dysphagia or sore throat Cardiovascular Cardiovascular: Denies chest pain, leg edema, palpitations or racing heartbeat Respiratory/Chest Respiratory/Chest: Denies cough, dyspnea or dyspnea on exertion Gastrointestinal Gastrointestinal: Denies abdominal pain, diarrhea, nausea or vomiting Genitourinary Genitourinary ED: Denies dysuria, hematuria or urinary frequency Musculoskeletal Musculoskeletal: Denies back pain, extremity pain or neck pain Integumentary Denies rash or wounds Neurologic Neurologic: Reports other Details: Tremors and shakiness ; Denies headache(s), paresthesias or weakness EXAM Physical Exam Const Vital Signs: 07/30/23 18:29 07/30/23 18:40 Temperature 96.3 F L Temperature Source Temporal Pulse Rate 95 Respiratory Rate 16 Respiratory Pattern Normal Blood Pressure 119/75 Blood Pressure Mean 89 Pulse Ox 96 Positive well nourished and well developed Constitutional Narrative: No tremors on exam. Nontoxic. General Appearance ED: well developed and NAD HEENT Reports moist mucous membranes normocephalic and atraumatic Eyes PERRL, EOMs intact bilaterally and conjunctivae normal General Eye ED: Yes normal appearance of both eyes Neck no lymphadenopathy and supple General: Negative for tenderness Chest Wall Chest: Negative for tenderness Resp normal respiratory effort and normal air movement Effort and Inspection: symmetric chest movement; Negative for respiratory distress Cardio regular rate, regular rhythm and no murmurs Peripheral Pulses: pulses 2+ throughout GI normal to inspection, nondistended, normoactive bowel sounds and non-tender Palpation: Negative for guarding or rebound tenderness present Back/Spine no CVA tenderness and no thoracic nor lumbar tenderness Extremity normal to inspection General Extremety ED: Negative for edema or tenderness General Extremity: Negative for edema Neuro oriented x3 and no sensory deficits noted Sensorium / Orientation: awake and alert Skin no rashes or lesions noted and no wounds MDM MDM MDM Narrative Medical decision making narrative: Interventions / MDM: Differential diagnosis: Medication side effects, electrolyte abnormalities Diagnosis considered but do not suspect: N/A My EKG interpretation: N/A Imaging independently reviewed and interpreted by myself: N/A External documents reviewed: N/A Test considered but not ordered:N/A ED course: Vital signs stable, no respiratory distress. Patient with no active tremors during my exam. She reports similar symptoms of electrolyte abnormalities in the past. Labs were drawn, electrolytes were normal slight leukocytosis 12.3 glucose 111 however she has been on steroids. Discussed with patient likely medication side effects from the steroids. She has 2 tabs of antibiotics left. She will finish this. Discussed holding her steroids at this time. She will monitor symptoms. Outpatient follow-up. Re-evaluation: stable Disposition discussed with patient/family/significant other: Patient Case discussed with consulting clinician: N/A This note was generated with [employer] dictation software. It may contain incorrect words, spelling, and punctuation that were not noted in checking the note before signing. Lab Data Attestation: I reviewed the patient's lab results. Labs: Laboratory Results - last 24 hr 07/30/23 19:10 WBC 12.3 H RBC 4.88 Hgb 14.2 Hct 46.0 MCV 94.3 MCH 29.1 MCHC 30.9 L RDW Std Deviation 46.5 H RDW Coeff of Ayesha 13.3 Plt Count 232 MPV 11.4 Immature Gran % (Auto) 0.700 Neut % (Auto) 76.4 H Lymph % (Auto) 16.9 L [place] % (Auto) 5.1 Eos % (Auto) 0.2 Baso % (Auto) 0.7 Absolute Neuts (auto) 9.4 H Absolute Lymphs (auto) 2.07 Nucleated RBC % 0 Sodium 138 Potassium 4.0 Chloride 101 Carbon Dioxide 35.0 H Anion Gap 2 L BUN 13 Creatinine 0.67 Estim Creat Clear Calc 83.38 Est GFR (MDRD) Af Amer 125 Est GFR (MDRD) Non-Af 103 BUN/Creatinine Ratio 19.4 Glucose 111 H Calcium 8.8 Magnesium 2.0 Discharge Plan Triage Chief Complaint: Other, Pain/Inj ED Provider: Irving Gomes Dx/Rx/DC Orders Clinical Impression: Tobacco dependence, COPD (chronic obstructive pulmonary disease), Steroid side effects Instructions: COPD Quit Smoking, ED Drug Reaction, Other Prescriptions: No Action albuterol sulfate [Ventolin HFA] 1 INHALER inhaler 1 puff inhalation Q4H PRN PRN (Reason: Wheezing) loratadine [Allergy Relief (loratadine)] 10 MG tablet 10 mg PO DAILY dicyclomine 10 MG capsule 20 mg PO TIDAC PRN (Reason: cramping) citalopram 40 MG tablet 40 mg PO DAILY methocarbamol 500 MG tablet 500 mg PO TID heffpwxs-mku-EI-lycopen-lutein 1 EACH tablet 1 ea PO DAILY budesonide-formoterol 1 INHALER inhaler 2 puff inhalation BID pantoprazole 40 MG tablet 40 mg PO DAILY Qty: 20 0RF albuterol sulfate 2.5 MG/3 ML solution for nebulization 2.5 mg inhalation Q4H PRN Qty: 25 0RF Rx Instructions: Use q4 hours and PRN for wheezing prednisone 20 MG tablet 60 mg PO DAILY Qty: 12 0RF albuterol sulfate [Ventolin HFA] 1 INHALER inhaler 2 puff inhalation Q4H PRN PRN (Reason: Wheezing) Qty: 1 0RF azithromycin [Zithromax Z-Reji] 250 mg tablet See Rx Instructions .ROUTE .COMPLEX Qty: 6 0RF Rx Instructions: take 500 mg today (day 1), then 250 mg for 4 days (days 2-5) Primary Care Provider: Ko Holt Referrals: Ko Holt MD [Primary Care Provider] - 1 Week if not improving Activity Restrictions/Additional Instructions: Stop your steroids. Try to stop smoking. Finish your antibiotic. Electrolytes are all normal. Follow-up with your doctor. Disposition Disposition: Home, Self Care Discharge Date/Time: 07/30/23 20:03
[2023-07-30 19:26] LABS: Absolute Lymphocyte Count 2.07 X10^3/uL (0.83-4.51); Absolute Neutrophil Count 9.4 X10^3/uL (2.0-7.7); Basophil# 0.08 X10^3/uL; Basophil% 0.7 % (0-1); Eosinophil# 0.03 X10^3/uL; Eosinophils% 0.2 % (0-5); Hemoglobin 14.2 g/dL (12.0-15.0); Lymphocyte # 2.07 X10^3/ul (0.83-4.51); Lymphocyte % 16.9 % (19-41); Mean Corp Hgb Conc 30.9 g/dL (32-36); Mean Corpuscular Hgb 29.1 pg (27.0-32.0); Mean Corpuscular Volume 94.3 fL (81-99); Mean Platelet Vol. 11.4 fl (6.2-12.0); Monocyte# 0.62 X10^3/uL; Monocyte% 5.1 % (0-10); NRBC Flagged by Analyzer 0 % (0-5); Neutrophil # 9.38 X10^3/uL (2.7-7.7); Neutrophil % 76.4 % (47-70); Platelet Count 232 K/mm3 (150-450); RBC Distribution Width CV 13.3 % (11.6-14.6); RBC Distribution Width SD 46.5 fl (35.1-43.9); Red Blood Count 4.88 M/mm3 (4.2-5.4); White Blood Count 12.3 K/mm3 (4.4-11.0)
[2023-07-30 19:42] LABS: Anion Gap 2 (5-15); BUN 13 mg/dL (7-18); BUN/Creat Ratio 19.4 RATIO (10-20); Calcium,Total 8.8 mg/dL (8.5-10.1); Chloride 101 mmol/L (98-107); Creatinine, Serum 0.67 mg/dL (0.55-1.02); EST Glomerular Filtration Rate 103 mL/min (>60); Est Glom Filt Rate - Afr Amer 125 mL/min (>60); Estimated Creatinine Clearance 83.38 ml/min; Glucose 111 mg/dL (74-106); Sodium Level 138 mmol/L (136-145)
== END 2023-07-30 20:03 | disposition home or self-care (01) ==
PROVIDERS: Emergency Provider Emergency Medicine; PCP Family Medicine; Visit Provider Emergency Medicine
DX: F17.210 Nicotine dependence, cigarettes, uncomplicated (principal); J44.9 Chronic obstructive pulmonary disease, unspecified
CPT/HCPCS: 80048; 83735; 85025; 99283; A4216

== ENCOUNTER 2023-11-06 20:05 | Emergency (ER) | payer MEDICAID, SELFPAY ==
[2023-11-06 20:06] VITALS: BP 135/92; PULSE 87; RESP 18; TEMP 36.1; O2SAT 95; BMI 54.2
--- NOTE | 2023-11-06 20:40 | EX.ED.DYSGE1 ---
HPI History of Present Illness Chief Complaint: General Illness Informant: patient Onset/Context/Timing Onset: Weeks (1) Context: Gradual Onset Timing: Continuous Quality: Weakness, aching Location: Generalized Worsened by: Eating Relieved by: Nothing Narrative Narrative: Patient presents with generalized aching and weakness that has been getting worse over the past week. Patient states she was recently put on doxycycline and steroids for a sinus infection when she was seen at the urgent care last week. Patient states that she does not feel any better after finishing this. Patient states her was seen in the emergency department at [facility] beds at the [facility] yesterday. She states he tested negative for COVID-19, influenza, and RSV. Patient denies any fevers or chills. Patient admits to some nausea and upper abdominal pain. Patient states her pain is worse with eating. Patient also admits to some urinary frequency, sore throat, and right ear pain. [facility] Medical History (Updated 11/06/23 @ 22:[address] Omid Xavier, DO) Anxiety Asthma COPD (chronic obstructive pulmonary disease) Depression Fibromyalgia Home Medications albuterol sulfate 90 mcg/actuation aerosol inhaler (Ventolin HFA) 1 puff inhalation Q4H PRN PRN Wheezing 07/21/15 [History Last Taken 12/19/19] loratadine 10 mg tablet (Allergy Relief (loratadine)) 10 mg PO DAILY 05/19/16 [History Last Taken 12/19/19] citalopram 40 mg tablet 40 mg PO DAILY 09/21/19 [History Last Taken 12/19/19] budesonide-formoterol HFA 160 mcg-4.5 mcg/actuation aerosol inhaler 2 puff inhalation BID 11/18/19 [History Last Taken 12/19/19] methocarbamol 500 mg tablet 500 mg PO TID 11/18/19 [History Last Taken 12/15/19] rgsdyfdu-egl-ojnum acid 0.4 mg-lycopene 300 mcg-lutein 250 mcg tablet 1 ea PO DAILY 11/18/19 [History Last Taken 12/19/19] pantoprazole 40 mg tablet,delayed release 40 mg PO DAILY #20 tabs 11/21/19 [Rx Last Taken Unknown] albuterol sulfate 2.5 mg/3 mL (0.083 %) solution for nebulization 2.5 mg (3 mL) inhalation Q4H PRN #25 vials 04/25/21 [Rx Last Taken Unknown] Allergy/AdvReac Type Severity Reaction Status Date / Time Penicillins Allergy Hives Verified 11/06/23 20:08 sumatriptan [From Imitrex] Allergy Itching Verified 11/06/23 20:08 Surgical History (Updated 11/06/23 @ 20:[address] Omid Xavier DO) History of dental surgery Hx of section Social History Smoking Status: Current every day smoker tobacco type: cigarettes substance use type: does not use ROS ROS ED Constitutional Constitutional ED: Denies chills or fever(s) Eyes Eyes: Denies blurry vision or change in vision ENT ENT ED: Reports ear pain right and sore throat; Denies rhinorrhea Cardiovascular Cardiovascular: Denies chest pain or palpitations Respiratory/Chest Respiratory/Chest: Denies cough or dyspnea Gastrointestinal Gastrointestinal: Reports abdominal pain and nausea; Denies vomiting Genitourinary Genitourinary ED: Reports urinary frequency; Denies dysuria or hematuria Musculoskeletal Musculoskeletal: Reports back pain; Denies neck pain Integumentary Denies abscess or rash Neurologic Neurologic: Reports headache(s); Denies weakness Allergic/Immunologic Allergic/Immunologic ED: Denies mouth swelling or urticaria EXAM Physical Exam Const Vital Signs: 11/06/23 20:06 Temperature 97 F L Temperature Source Temporal Pulse Rate 87 Respiratory Rate 18 Blood Pressure 135/92 H Blood Pressure Mean 106 Pulse Ox 95 Oxygen Delivery Method Room Air Positive well nourished, well developed and obese General Appearance ED: well developed and NAD Nutritional Appearance: obese HEENT Reports TM's clear and moist mucous membranes HEENT Narrative: Oropharynx shows some mild erythema and postnasal drainage. There are no exudates noted. There is no edema noted. Tympanic Membrane ED: Yes TM's clear bilateral Neck no lymphadenopathy, supple and no JVD Resp normal respiratory effort Auscultation: rhonchi throughout Cardio regular rate and regular rhythm GI non-distended Palpation: soft and tender epigastric and RUQ; Negative for guarding or rebound tenderness present Extremity normal to inspection General Extremety ED: Negative for edema or tenderness General Extremity: Negative for edema Neuro oriented x3, CN's II-XII intact bilaterally and no sensory deficits noted Sensorium / Orientation: alert Motor Exam: strength 5/5 throughout Psych mental status grossly normal MDM MDM MDM Narrative Medical decision making narrative: Differential diagnosis includes viral upper respiratory infection, COVID-19 infection, influenza infection, pneumonia, pancreatitis, gastritis, cholelithiasis, and urinary tract infection. Chest x-ray will be obtained to assess for pneumonia and pneumothorax. COVID-19 rapid antigen will be obtained to assess for COVID-19 infection. Influenza A and influenza B antigens will be obtained to assess for influenza infection. CBC will be obtained to assess for leukocytosis and anemia. Basic metabolic profile will be obtained to assess for electrolyte abnormality and renal function. Urinalysis will be obtained to assess for urinary tract infection. Lab Data Attestation: I reviewed the patient's lab results. Lab results narrative: CBC was reviewed. There is a slight leukocytosis of 12.2. The remainder is within normal limits. Comprehensive metabolic profile was reviewed and was essentially within normal limits. Lipase was reviewed and was normal. Urinalysis was reviewed. There is no evidence of urinary tract infection or hematuria. COVID-19 rapid antigen was reviewed and was negative. Influenza A and influenza B antigens were reviewed and were negative. Labs: Laboratory Results - last 24 hr 11/06/23 11/06/23 11/06/23 20:55 21:05 21:05 WBC Cancelled Corrected WBC Cancelled RBC Cancelled Hgb Cancelled Hct Cancelled MCV Cancelled MCH Cancelled MCHC Cancelled RDW Std Deviation Cancelled RDW Coeff of Ayesha Cancelled Plt Count Cancelled MPV Cancelled Immature Gran % (Auto) Cancelled Neut % (Auto) Cancelled Lymph % (Auto) Cancelled [place] % (Auto) Cancelled Eos % (Auto) Cancelled Baso % (Auto) Cancelled Absolute Neuts (auto) Cancelled Absolute Lymphs (auto) Cancelled Total Counted Cancelled Neutrophils % (Manual) Cancelled Band Neutrophils % Cancelled Lymphocytes % (Manual) Cancelled Monocytes % (Manual) Cancelled Eosinophils % (Manual) Cancelled Basophils % (Manual) Cancelled Metamyelocytes % Cancelled Myelocytes % Cancelled Promyelocytes % Cancelled Blast Cells % Cancelled Plasma Cell % (Manual) Cancelled Other Cells % Cancelled Nucleated RBC % Cancelled Nucleated RBCs/100 WBC Cancelled Differential Comment Cancelled Diff Path Review Cancelled Hypersegmented Neuts Cancelled Atypical Lymphocytes Cancelled Reactive Lymphocytes Cancelled Smudge Cells Cancelled Toxic Granulation Cancelled Toxic Vacuolation Cancelled Dohle Bodies Cancelled William Rods Cancelled Platelet Estimate Cancelled Plt Morphology Comment Cancelled RBC Morphology Cancelled Cancelled Polychromasia Cancelled Hypochromasia Cancelled Poikilocytosis Cancelled Basophilic Stippling Cancelled Anisocytosis Cancelled Microcytosis Cancelled Macrocytosis Cancelled Spherocytes Cancelled Sickle Cells Cancelled Target Cells Cancelled Tear Drop Cells Cancelled Ovalocytes Cancelled Stomatocytes Cancelled Carballo-Fries Bodies Cancelled [place] Cells Cancelled Bite Cells Cancelled Crenated Cell Cancelled Acanthocytes (Spur) Cancelled Rouleaux Cancelled Schistocytes Cancelled Sodium 135 L Potassium 4.7 Chloride 104 Carbon Dioxide 30.0 Anion Gap 1 L BUN 9 Creatinine 0.70 Estim Creat Clear Calc 79.81 Est GFR (MDRD) Af Amer 119 Est GFR (MDRD) Non-Af 99 BUN/Creatinine Ratio 12.9 Glucose 80 Calcium 8.9 Total Bilirubin 0.60 AST 32 ALT 23 Alkaline Phosphatase 54 Total Protein 6.6 Albumin 2.6 L Globulin 4.0 Albumin/Globulin Ratio 0.6 L Lipase 20 Urine Color Yellow Urine Clarity Clear Urine pH 6.5 Ur Specific [place] 1.010 Urine Protein Negative Urine Glucose (UA) Normal Urine Ketones Negative Urine Occult Blood Negative Urine Nitrite Negative Urine Bilirubin Negative Urine Urobilinogen Normal Ur Leukocyte Esterase Negative Urine RBC 0 SEEN Urine WBC 0-5 SEEN Ur Squamous Epith Cells 0 SEEN Urine Bacteria 0 SEEN Urine Mucus 0 SEEN 11/06/23 21:35 WBC 12.2 H Corrected WBC RBC 4.76 Hgb 13.7 Hct 44.6 MCV 93.7 MCH 28.8 MCHC 30.7 L RDW Std Deviation 48.8 H RDW Coeff of Ayesha 14.1 Plt Count 231 MPV 11.1 Immature Gran % (Auto) 0.600 Neut % (Auto) 58.6 Lymph % (Auto) 33.3 [place] % (Auto) 4.6 Eos % (Auto) 1.9 Baso % (Auto) 1.0 Absolute Neuts (auto) 7.1 Absolute Lymphs (auto) 4.06 Total Counted Neutrophils % (Manual) Band Neutrophils % Lymphocytes % (Manual) Monocytes % (Manual) Eosinophils % (Manual) Basophils % (Manual) Metamyelocytes % Myelocytes % Promyelocytes % Blast Cells % Plasma Cell % (Manual) Other Cells % Nucleated RBC % 0 Nucleated RBCs/100 WBC Differential Comment Diff Path Review Hypersegmented Neuts Atypical Lymphocytes Reactive Lymphocytes Smudge Cells Toxic Granulation Toxic Vacuolation Dohle Bodies William Rods Platelet Estimate Plt Morphology Comment RBC Morphology Polychromasia Hypochromasia Poikilocytosis Basophilic Stippling Anisocytosis Microcytosis Macrocytosis Spherocytes Sickle Cells Target Cells Tear Drop Cells Ovalocytes Stomatocytes Carballo-Fries Bodies [place] Cells Bite Cells Crenated Cell Acanthocytes (Spur) Rouleaux Schistocytes Sodium Potassium Chloride Carbon Dioxide Anion Gap BUN Creatinine Estim Creat Clear Calc Est GFR (MDRD) Af Amer Est GFR (MDRD) Non-Af BUN/Creatinine Ratio Glucose Calcium Total Bilirubin AST ALT Alkaline Phosphatase Total Protein Albumin Globulin Albumin/Globulin Ratio Lipase Urine Color Urine Clarity Urine pH Ur Specific [place] Urine Protein Urine Glucose (UA) Urine Ketones Urine Occult Blood Urine Nitrite Urine Bilirubin Urine Urobilinogen Ur Leukocyte Esterase Urine RBC Urine WBC Ur Squamous Epith Cells Urine Bacteria Urine Mucus Radiography Chest X-Ray - ED: 2 View, Read by ED Physician, Read by Radiologist and No Acute Disease Diagnostic Testing: Clinical Impression(s) from Imaging Studies Chest X-Ray 11/06/23 21:14 IMPRESSION: Calcific structure projecting over the left lower lung, stable in the interval favoring benign process given stability. No acute cardiopulmonary disease. Electronically Signed: Marysol Florez MD at 21:50 EST Reading Location ID and State: [address] [place] [address] , Service support , PA and lateral chest x-ray was obtained. There are 2 views. On my independent interpretation, lung carballo show a calcific structure in the left lower lung which is unchanged compared to previous chest x-ray. There is normal cardiac silhouette. Bony thorax is normal. There is no acute process noted. Radiologist also interpreted the x-ray and agrees. Treatment and Re-Evaluation :: Patient was given a DuoNeb aerosol. Patient was advised of her findings. Patient was instructed to drink plenty of fluids. Patient was instructed to take Tylenol or ibuprofen as needed for any pain or fevers. Patient was instructed to follow-up with her primary care physician in 5 to 7 days. Patient understood and was agreeable with the plan. All questions were answered. Discharge Plan Triage Chief Complaint: General Illness ED Provider: Omid Xavier Dx/Rx/DC Orders Clinical Impression: Viral upper respiratory tract infection, Morbid obesity with BMI of 50.0-59.9, adult Instructions: ED URI, Viral, No Abx (Adult) Prescriptions: No Action albuterol sulfate [Ventolin HFA] 1 INHALER inhaler 1 puff inhalation Q4H PRN PRN (Reason: Wheezing) loratadine [Allergy Relief (loratadine)] 10 MG tablet 10 mg PO DAILY citalopram 40 MG tablet 40 mg PO DAILY methocarbamol 500 MG tablet 500 mg PO TID aayexgyr-fco-GC-lycopen-lutein 1 EACH tablet 1 ea PO DAILY budesonide-formoterol 1 INHALER inhaler 2 puff inhalation BID pantoprazole 40 MG tablet 40 mg PO DAILY Qty: 20 0RF albuterol sulfate 2.5 MG/3 ML solution for nebulization 2.5 mg inhalation Q4H PRN Qty: 25 0RF Rx Instructions: Use q4 hours and PRN for wheezing Primary Care Provider: Ko Holt Referrals: Ko Holt MD [Primary Care Provider] - 5-7 Days Disposition Disposition: Home, Self Care
[2023-11-06] MEDS: Ipratropium/Albuterol Sulfate 3 ML AMPUL.NEB INHALATION (20:54)
[2023-11-06 21:10] LABS: Bacteria 0 SEEN /hpf (None Seen); Mucous, Urine 0 SEEN /hpf (<or=2+); Red Blood Cells-Urine 0 SEEN /hpf (0-5); Squamous Epithelial Cells - UA 0 SEEN /hpf (5-10)
--- NOTE | 2023-11-06 21:14 | RAD_ITS ---
STUDY: X-RAY CHEST REASON FOR EXAM: Female, 43 years old. Dyspnea TECHNIQUE: Single AP portable view of the chest. COMPARISON: 04/25/2021. FINDINGS: Subtle calcific opacity projecting over the left mid lower lung field measuring 4.3 cm, stable in the interval and exact location indeterminate. Otherwise the lungs are clear and expanded. There is no demonstrated pleural abnormality. Normal size heart. Normal mediastinum and fatoumata. Normal visualized pulmonary arteries. Normal visualized aortic arch and descending thoracic aorta. Normal visualized thoracic spine. Sequela of old fracture involving the left lower ribs. There is no demonstrated abnormality of the visualized soft tissue structures of the upper abdomen. RAD/Chest PA and Lateral IMPRESSION: Calcific structure projecting over the left lower lung, stable in the interval favoring benign process given stability. No acute cardiopulmonary disease. Electronically Signed: Marysol Florez MD at 21:50 EST ,
[2023-11-06 21:15] LABS: Color, Urine Yellow (Yellow); Glucose, Dipstick Normal (Normal); Ketone-Dipstick Negative (Negative); Leukocyte Esterase-Dipstick Negative /ul (Negative); Nitrite-Dipstick Negative (Negative); Occult Blood-Urine Negative /ul (Negative); Protein-Dipstick Negative (Negative); Urine Bilirubin Dipstick Negative (Negative); Urine Clarity Clear (Clear); Urine Urobilinogen Normal (Normal); Urine pH 6.5 (5.0 - 8.0)
[2023-11-06 21:28] LABS: White Blood Cells 0-5 SEEN /hpf (0-5)
[2023-11-06 21:35] LABS: ALB/GLOB Ratio 0.6 RATIO (0.9-2.4); AST(SGOT) 32 U/L (15-37); Alanine Aminotransfer ALT/SGPT 23 U/L (13-56); Albumin, Serum 2.6 g/dL (3.2-5.0); Alkaline Phosphatase 54 U/L (45-117); Anion Gap 1 (5-15); BUN 9 mg/dL (7-18); BUN/Creat Ratio 12.9 RATIO (10-20); Calcium,Total 8.9 mg/dL (8.5-10.1); Chloride 104 mmol/L (98-107); EST Glomerular Filtration Rate 99 mL/min (>60); Est Glom Filt Rate - Afr Amer 119 mL/min (>60); Estimated Creatinine Clearance 79.81 ml/min; Glucose 80 mg/dL (74-106); Lipase 20 U/L (13-75); Potassium 4.7 mmol/L (3.5-5.1); Protein, Total 6.6 g/dL (6.4-8.2); Sodium Level 135 mmol/L (136-145)
[2023-11-06 21:41] LABS: Absolute Lymphocyte Count 4.06 X10^3/uL (0.83-4.51); Absolute Neutrophil Count 7.1 X10^3/uL (2.0-7.7); Basophil# 0.12 X10^3/uL; Eosinophil# 0.23 X10^3/uL; Eosinophils% 1.9 % (0-5); Hematocrit 44.6 % (37-47); Hemoglobin 13.7 g/dL (12.0-15.0); Lymphocyte # 4.06 X10^3/ul (0.83-4.51); Lymphocyte % 33.3 % (19-41); Mean Corp Hgb Conc 30.7 g/dL (32-36); Mean Corpuscular Hgb 28.8 pg (27.0-32.0); Mean Corpuscular Volume 93.7 fL (81-99); Mean Platelet Vol. 11.1 fl (6.2-12.0); Monocyte# 0.56 X10^3/uL; Monocyte% 4.6 % (0-10); NRBC Flagged by Analyzer 0 % (0-5); Neutrophil # 7.14 X10^3/uL (2.7-7.7); Neutrophil % 58.6 % (47-70); Platelet Count 231 K/mm3 (150-450); RBC Distribution Width CV 14.1 % (11.6-14.6); RBC Distribution Width SD 48.8 fl (35.1-43.9); Red Blood Count 4.76 M/mm3 (4.2-5.4); White Blood Count 12.2 K/mm3 (4.4-11.0)
[2023-11-06 22:12] VITALS: PULSE 78; RESP 18; O2SAT 93
== END 2023-11-06 22:12 | disposition home or self-care (01) ==
PROVIDERS: Emergency Provider Emergency Medicine; PCP Family Medicine; Visit Provider Emergency Medicine
DX: J06.9 Acute upper respiratory infection, unspecified (principal); J44.9 Chronic obstructive pulmonary disease, unspecified; E66.01 Morbid (severe) obesity due to excess calories; Z68.43 Body mass index [BMI] 50.0-59.9, adult; F17.210 Nicotine dependence, cigarettes, uncomplicated; F41.9 Anxiety disorder, unspecified; F32.A Depression, unspecified; Z79.899 Other long term (current) drug therapy
CPT/HCPCS: 71046; 80053; 81001; 83690; 85025; 87428; 94640; 99282; A4216